=== PATIENT | male | born 1970 | race Hispanic/Latino ===

== ENCOUNTER 2020-08-03 08:24 | Emergency (ER) | payer SELFPAY ==
--- NOTE | 2020-08-03 09:50 | EDPHYS ---
Physician Documentation [facility] Name: Diego Stone Age: 49 yrs Sex: Male : 1970 Arrival Date: 08/03/2020 Time: 08:26 Bed 20 Private MD: ED Physician Federico Gross HPI: 08/03 09:51 This 49 yrs old Male presents to ER via Ambulatory with complaints of Hand kdr Pain. 09:51 The patient or guardian reports decreased range of motion, injury, pain. The complaints kdr affect the IP of right thumb and MCP of right thumb. Context: The problem was sustained outdoors, resulted from a fall. Onset: The symptoms/episode began/occurred suddenly, 1 month(s) ago. Modifying factors: The symptoms are alleviated by nothing, the symptoms are aggravated by movement. Associated signs and symptoms: The patient has no apparent associated signs or symptoms. Severity of symptoms: At their worst the symptoms were mild, moderate, just prior to arrival, in the emergency department the symptoms are unchanged. The patient has not experienced similar symptoms in the past. The patient has not recently seen a physician. Historical: - Allergies: 08:36 No Known Allergies; sv - Immunization history:: Adult Immunizations unknown. - Social history:: Smoking status: unknown. ROS: 09:51 Constitutional: Negative for fever, chills, and weight loss, Eyes: Negative for injury, kdr pain, redness, and discharge. 09:51 MS/extremity: Positive for injury or acute deformity, decreased range of motion, pain, swelling, tenderness, of the dorsal aspect of proximal phalanx of right thumb and Right first web space. Exam: 09:53 Constitutional: This is a well developed, well nourished patient who is awake, alert, kdr and in no acute distress. Head/Face: Normocephalic, atraumatic. 09:53 Musculoskeletal/extremity: Extremities: grossly normal except: decreased ROM, pain, swelling, tenderness. Vital Signs: 08:37 BP 150 / 81; Pulse 90; Resp 16; Temp 98.8; Pulse Ox 99% ; Height 5 ft. 5 in. (165.10 sv cm); 10:55 BP 145 / 80; Pulse 89; Resp 16; Pulse Ox 99% on R/A; zb MDM: 09:50 Patient medically screened. kdr 09:53 Data reviewed: vital signs, nurses notes, radiologic studies. Counseling: I had a kdr detailed discussion with the patient and/or guardian regarding: the historical points, exam findings, and any diagnostic results supporting the discharge/admit diagnosis, radiology results, the need for outpatient follow up. ED course: The injury is one month old and the patient does not appear to be any acute distress. 08/03 08:49 Order name: Hand Right 3 View XRAY 08/03 09:51 Order name: Thumb Spica Splint; Complete Time: 10:22 kdr Administered Medications: No medications were administered Disposition: 08/03/20 09:50 Discharged to Home. Impression: Fracture proximal right proximal first phalanx: Non-acute (1 month old). - Condition is Stable. - Discharge Instructions: Thumb Fracture. - Medication Reconciliation Form, Thank You Letter form. - Follow up: Manish Mitchell MD; When: 2 - 3 days; Reason: If symptoms return, Further diagnostic work-up, Recheck today's complaints, Continuance of care, Re-evaluation by your physician. Signatures: Dispatcher [employer] EDBindu Ochoa RN RN sv Federico Gross MD MD kdr Anjali Serrano RN RN zb Corrections: (The following items were deleted from the chart) 11:05 09:50 08/03/2020 09:50 Discharged to Home. Impression: Fracture proximal right proximal zb first phalanx: Non-acute (1 month old). Condition is Stable. Forms are Medication Reconciliation Form, Thank You Letter, Antibiotic Education, Prescription Opioid Use. Follow up: Manish Mitchell; When: 2 - 3 days; Reason: If symptoms return, Further diagnostic work-up, Recheck today's complaints, Continuance of care, Re-evaluation by your physician. kdr
--- NOTE | 2020-08-03 09:50 | ER ---
Nurse's Notes [facility] Name: Diego Stone Age: 49 yrs Sex: Male : 1970 Arrival Date: 08/03/2020 Time: 08:26 Bed 20 Private MD: Diagnosis: Fracture proximal right proximal first phalanx: Non-acute (1 month old) Presentation: 08/03 08:35 Chief complaint: Parent and/or Guardian states: right hand pain and swelling x 1 month. sv Pt reports falling on it a month ago. Coronavirus screen: Client denies travel out of the [place] in the last 14 days. At this time, the client does not indicate any symptoms associated with coronavirus-19. Ebola Screen: No symptoms or risks identified at this time. Risk Assessment: Do you want to hurt yourself or someone else? Patient reports no desire to harm self or others. Onset of symptoms was June 2020. 08:35 Method Of Arrival: Ambulatory 08:35 Acuity: PETE 4 sv 08:37 Initial Sepsis Screen: Does the patient meet any 2 criteria? No. Patient's initial sv sepsis screen is negative. Does the patient have a suspected source of infection? No. Patient's initial sepsis screen is negative. 08:49 Note Received VO for a hand xray per Dr Gross. sv Triage Assessment: 08:38 General: Appears in no apparent distress. uncomfortable, well developed, Behavior is sv calm, cooperative, appropriate for age. Pain: Complains of pain in right hand. Neuro: Level of Consciousness is awake, alert, obeys commands, Gait is steady. Respiratory: Respiratory effort is even, unlabored. Historical: - Allergies: 08:36 No Known Allergies; sv - Immunization history:: Adult Immunizations unknown. - Social history:: Smoking status: unknown. Screenin:42 Abuse screen: Denies threats or abuse. Denies injuries from another. Nutritional zb screening: No deficits noted. Tuberculosis screening: No symptoms or risk factors identified. Fall Risk None identified. Assessment: 09:39 General: Appears in no apparent distress. comfortable, Behavior is calm, cooperative, zb appropriate for age. Pain: Complains of pain in right hand Pain does not radiate. Pain currently is 0 out of 10 on a pain scale. at worst was 5 out of 10 on a pain scale. Pain began about a month ago Is continuous, Alleviated by rest, Aggravated by increased activity. Neuro: Level of Consciousness is awake, alert, obeys commands, Oriented to person, place, time, situation. Cardiovascular: Heart tones S1 S2 present Capillary refill < 3 seconds in bilateral fingers Patient's skin is warm and dry. Pulses are all present. Respiratory: Airway is patent Respiratory effort is even, unlabored, Respiratory pattern is regular, symmetrical. GI: Abdomen is round non-distended. : No signs and/or symptoms were reported regarding the genitourinary system. EENT: No signs and/or symptoms were reported regarding the EENT system. Derm: Skin is intact, is healthy with good turgor, Skin is dry, Skin is normal, Skin temperature is warm. Musculoskeletal: Circulation, motion, and sensation intact. Range of motion: intact in all extremities, Swelling present in right hand. 10:39 Reassessment: ECP at bedside explain POC to patient and family. zb 11:03 Reassessment: Patient appears in no apparent distress at this time. pt d/c gait even zb and steady. ambulated w/ family. Vital Signs: 08:37 BP 150 / 81; Pulse 90; Resp 16; Temp 98.8; Pulse Ox 99% ; Height 5 ft. 5 in. (165.10 sv cm); 10:55 BP 145 / 80; Pulse 89; Resp 16; Pulse Ox 99% on R/A; zb ED Course: 08:26 Patient arrived in ED. rg4 08:36 Triage completed. sv 08:37 Arm band placed on. sv 09:28 Federico Gross MD is Attending Physician. kdr 09:36 Anjali Serrano RN is Primary Nurse. zb 09:40 Hand Right 3 View XRAY In Process Unspecified. EDMS 09:42 Patient has correct armband on for positive identification. Side rails up X 1. Adult w/ zb patient. Door closed. Noise minimized. 09:47 Manish Mitchell MD is Referral Physician. kdr 11:04 No provider procedures requiring assistance completed. Patient did not have IV access zb during this emergency room visit. Administered Medications: No medications were administered Outcome: 09:50 Discharge ordered by . kdr 11:05 Discharged to home ambulatory, with family. zb 11:05 Condition: stable 11:05 Discharge instructions given to patient, family, Instructed on discharge instructions, follow up and referral plans. Demonstrated understanding of instructions, follow-up care, splint usage 11:05 Patient left the ED. zb Signatures: Dispatcher [employer] Bindu Rich, RN RN Federico Green MD MD kdr Garcia, Rubi rg4 Anjali Serrano RN RN zb Corrections: (The following items were deleted from the chart) 08:39 08:37 Pulse 90bpm; Resp 16bpm; Pulse Ox 99%; Temp 98.8F; Height 5 ft. 5 in.; sv sv
--- NOTE | 2020-08-03 10:19 | RAD REPORT ---
EXAM DESCRIPTION: RAD - Hand Right 3 View - 08/03/2020 9:40 am CLINICAL HISTORY: Pain;Swelling, fall 1 month earlier COMPARISON: No comparisons FINDINGS: An oblique fracture is present through the base of the first metacarpal involving the mireya cular surface. A 10 millimeter sized triangular fracture fragment is present at the ulna side base. T here is callus formation along the fracture plane which would be consistent with an injury 1 month ea rlier. No significant degenerative change at the trapezium - first metacarpal joint space. Elsewhere in the right hand no fracture or acute bone findings seen. No destructive process. No forei gn body or significant soft tissue abnormality. IMPRESSION: Subacute, incompletely healed fracture at the base of the first metacarpal as detailed.
[2020-08-03 16:22] VITALS: TEMP 98.8; O2SAT 99
[2020-08-03 16:23] VITALS: BP 145/80
== END 2020-08-03 11:05 | disposition home or self-care (01) ==
LOC: ER 08:24
PROC: 2W3GX1Z Immobilization of Right Thumb using Splint (ICD-10-PCS; principal; 2020-08-03)
DX: S62.511A Displaced fracture of proximal phalanx of right thumb, initial encounter for closed fracture (principal); W18.30XA Fall on same level, unspecified, initial encounter; Y93.9 Activity, unspecified; Y92.89 Other specified places as the place of occurrence of the external cause
CPT/HCPCS: 99283

== ENCOUNTER 2023-01-30 15:15 | Emergency (ER) | payer SELFPAY ==
--- NOTE | 2023-01-30 16:08 | ER ---
Nurse's Notes [facility] Name: Diego Stone Age: 52 yrs Sex: Male : 1970 Arrival Date: 01/30/2023 Time: 15:15 Bed IW4 Private MD: Diagnosis: Otitis media, unspecified, left ear;Other otitis externa, left ear Presentation: 01/30 16:03 Chief complaint: Patient states: L ear pain, denies fever. Coronavirus screen: Vaccine ph status: Patient reports being unvaccinated. Ebola Screen: No symptoms or risks identified at this time. Initial Sepsis Screen: Does the patient meet any 2 criteria? No. Patient's initial sepsis screen is negative. Does the patient have a suspected source of infection? No. Patient's initial sepsis screen is negative. Risk Assessment: Do you want to hurt yourself or someone else? Patient reports no desire to harm self or others. Onset of symptoms was January 30, 2023. 16:03 Method Of Arrival: Ambulatory ph 16:03 Acuity: PETE 4 ph Triage Assessment: 16:10 General: Appears in no apparent distress. comfortable, Behavior is calm, cooperative, ph appropriate for age. Pain: Complains of pain in left ear. EENT: Reports pain in left ear. Neuro: Level of Consciousness is awake, alert, obeys commands, Oriented to person, place, time, situation. Cardiovascular: Capillary refill < 3 seconds in bilateral fingers Patient's skin is warm and dry. Respiratory: Airway is patent Respiratory effort is even, unlabored, Respiratory pattern is regular, symmetrical. Historical: - Allergies: 16:04 No Known Allergies; ph - Home Meds: 16:05 Metformin Oral [Active]; ph - PMHx: 16:05 Diabetes mellitus; ph - Immunization history:: Adult Immunizations unknown. - Social history:: Smoking status: Patient denies any tobacco usage or history of. Screenin:10 Abuse screen: Denies threats or abuse. Denies injuries from another. Nutritional ph screening: No deficits noted. Tuberculosis screening: No symptoms or risk factors identified. Vital Signs: 16:22 BP 132 / 78; Pulse 89; Resp 18; Temp 97.9; Pulse Ox 99% on R/A; ph ED Course: 15:20 Patient arrived in ED. rg4 15:27 Jane Sanchez FNP-C [facility]. snw 15:27 Sharan Mcintosh MD is Attending Physician. snw 16:04 Triage completed. ph 16:06 Chastity Mg RN is Primary Nurse. ph 16:06 Arm band placed on. ph 16:10 Patient has correct armband on for positive identification. ph 16:15 No provider procedures requiring assistance completed. Patient did not have IV access ph during this emergency room visit. Administered Medications: 16:21 Drug: Yohnwqtl-Suzuthuyz-NU Otic Drops 4 drops Route: Otic; Site: left ear; ph 16:30 Follow up: Response: No adverse reaction ph 16:21 Drug: Amoxicillin-Clavulanate PO 875 mg Route: PO; ph 16:30 Follow up: Response: No adverse reaction ph 16:21 Drug: HYDROcodone-acetaminophen PO 5 mg-325 mg 1 tabs Route: PO; ph 16:30 Follow up: Response: No adverse reaction ph 16:21 Drug: Ibuprofen PO 400 mg Route: PO; ph 16:30 Follow up: Response: No adverse reaction ph Medication: 16:10 VIS not applicable for this client. ph Outcome: 16:07 Discharge ordered by . snw 16:22 Patient left the ED. ph 16:22 Discharged to home ambulatory, with family. ph 16:22 Condition: good 16:22 Discharge instructions given to patient, family, Instructed on discharge instructions, follow up and referral plans. medication usage, Demonstrated understanding of instructions, follow-up care, medications, Prescriptions given X 3. Signatures: Jane Sanchez FNP-C [employer]IN[employer] MANAGER-[employer] Chastity Mg RN RN ph Delilah Paulino rg4 Corrections: (The following items were deleted from the chart) 16:06 16:04 PMHx: None; ph ph
--- NOTE | 2023-01-30 16:08 | EDPHYS ---
Physician Documentation [facility] Name: Diego Stone Age: 52 yrs Sex: Male : 1970 Arrival Date: 01/30/2023 Time: 15:15 Bed IW4 Private MD: ED Physician Sharan Mcintosh HPI: 01/30 16:16 This 52 yrs old Male presents to ER via Ambulatory with complaints of Ear Pain.snw 16:16 The complaints affect the left ear. Severity of symptoms: At their worst the symptoms snw were moderate severe. The patient has not experienced similar symptoms in the past. It is unknown whether or not the patient has recently seen a physician. Historical: - Allergies: 16:04 No Known Allergies; ph - Home Meds: 16:05 Metformin Oral [Active]; ph - PMHx: 16:05 Diabetes mellitus; ph - Immunization history:: Adult Immunizations unknown. - Social history:: Smoking status: Patient denies any tobacco usage or history of. ROS: 16:15 Constitutional: Negative for fever, chills, and weight loss, Eyes: Negative for injury, snw pain, redness, and discharge, ENT: Negative for injury and discharge, + pain to left ear x 5 days Neck: Negative for injury, pain, and swelling, Cardiovascular: Negative for chest pain, palpitations, and edema, Respiratory: Negative for shortness of breath, cough, wheezing, and pleuritic chest pain, Abdomen/GI: Negative for abdominal pain, nausea, vomiting, diarrhea, and constipation, Back: Negative for injury and pain, : Negative for injury, bleeding, discharge, and swelling, MS/Extremity: Negative for injury and deformity, Skin: Negative for injury, rash, and discoloration, Neuro: Negative for headache, weakness, numbness, tingling, and seizure, Psych: Negative for depression, anxiety, suicide ideation, homicidal ideation, and hallucinations. Exam: 16:13 Constitutional: This is a well developed, well nourished patient who is awake, alert, snw and in no acute distress. Head/Face: Normocephalic, atraumatic. Eyes: Pupils equal round and reactive to light, extra-ocular motions intact. Lids and lashes normal. Conjunctiva and sclera are non-icteric and not injected. Cornea within normal limits. Periorbital areas with no swelling, redness, or edema. Neck: Trachea midline, no thyromegaly or masses palpated, and no cervical lymphadenopathy. Supple, full range of motion without nuchal rigidity, or vertebral point tenderness. No Meningismus. Chest/axilla: Normal chest wall appearance and motion. Nontender with no deformity. No lesions are appreciated. Cardiovascular: Regular rate and rhythm with a normal S1 and S2. No gallops, murmurs, or rubs. Normal PMI, no JVD. No pulse deficits. Respiratory: Lungs have equal breath sounds bilaterally, clear to auscultation and percussion. No rales, rhonchi or wheezes noted. No increased work of breathing, no retractions or nasal flaring. Abdomen/GI: Soft, non-tender, with normal bowel sounds. No distension or tympany. No guarding or rebound. No evidence of tenderness throughout. Back: No spinal tenderness. No costovertebral tenderness. Full range of motion. Skin: Warm, dry with normal turgor. Normal color with no rashes, no lesions, and no evidence of cellulitis. MS/ Extremity: Pulses equal, no cyanosis. Neurovascular intact. Full, normal range of motion. Neuro: Awake and alert, GCS 15, oriented to person, place, time, and situation. Cranial nerves II-XII grossly intact. Motor strength 5/5 in all extremities. Sensory grossly intact. Cerebellar exam normal. Normal gait. Psych: Awake, alert, with orientation to person, place and time. Behavior, mood, and affect are within normal limits. 16:13 ENT: Ear canal(s): clear fluid in canal, tenderness to left ear with tragus pressure and tug test, Nose: Mouth: Posterior pharynx: erythema, that is mild. Vital Signs: 16:22 BP 132 / 78; Pulse 89; Resp 18; Temp 97.9; Pulse Ox 99% on R/A; ph MDM: 16:06 Patient medically screened. snw 16:15 Differential diagnosis: otitis media, otitis externa, ruptured TM, acute otalgia. Data snw reviewed: vital signs, nurses notes. I considered the following discharge prescriptions or medication management in the emergency department Medications were administered in the Emergency Department. See MAR. Counseling: I had a detailed discussion with the patient and/or guardian regarding: the historical points, exam findings, and any diagnostic results supporting the discharge/admit diagnosis, the need for outpatient follow up, for definitive care, to return to the emergency department if symptoms worsen or persist or if there are any questions or concerns that arise at home. Special discussion: Based on the history and exam findings, there is no indication for further emergent testing or inpatient evaluation. I discussed with the patient/guardian the need to see the ENT specialist for further evaluation of the symptoms. I discussed with the patient/guardian the need to see the primary care provider for further evaluation of the symptoms. Administered Medications: 16:21 Drug: Skvlyuvc-Ptrkktkiu-GR Otic Drops 4 drops Route: Otic; Site: left ear; ph 16:30 Follow up: Response: No adverse reaction ph 16:21 Drug: Amoxicillin-Clavulanate PO 875 mg Route: PO; ph 16:30 Follow up: Response: No adverse reaction ph 16:21 Drug: HYDROcodone-acetaminophen PO 5 mg-325 mg 1 tabs Route: PO; ph 16:30 Follow up: Response: No adverse reaction ph 16:21 Drug: Ibuprofen PO 400 mg Route: PO; ph 16:30 Follow up: Response: No adverse reaction ph Disposition: 21:23 Co-signature as Attending Physician, Sharan Mcintosh MD I reviewed the patient's care rt provided by the Advanced Practice Provider and agree with the diagnosis and treatment plan. Disposition Summary: 01/30/23 16:07 Discharge Ordered Location: Home snw Condition: Stable snw Diagnosis - Otitis media, unspecified, left ear snw - Other otitis externa, left ear snw Followup: snw - With: Emergency Department - When: As needed - Reason: Worsening of condition Followup: snw - With: Private Physician - When: 2 - 3 days - Reason: Recheck today's complaints, Continuance of care, Re-evaluation by your physician Discharge Instructions: - Otitis Media, Adult snw - Otitis Externa snw - Discharge Summary Sheet ss Forms: - Medication Reconciliation Form snw - Thank You Letter snw - Antibiotic Education snw - Prescription Opioid Use snw - Work release form ss Prescriptions: - Polytrim 10,000 unit- 1 mg/mL Ophthalmic drops - instill 3 drop by OTIC route every 6 hours for 7 days to Left ear canal, do not snw exceed 6 doses in a 24 hr period; 1 unit; Refills: 0, Product Selection Permitted - Augmentin 500-125 mg Oral Tablet - take 1 tablet by ORAL route every 8 hours for 10 days; 30 tablet; Refills: 0, snw Product Selection Permitted - Tramadol 50 mg Oral Tablet - take 1 tablet by ORAL route every 8 hours as needed; 12 tablet; Refills: 0, snw Product Selection Permitted Signatures: Jane Sanchez, VERITO CLAIM SPECIALIST-Chastity Márquez RN RN ph Sharan Mcintosh MD MD rt Corrections: (The following items were deleted from the chart) 16:06 16:04 PMHx: None; ph ph
[2023-01-30] MEDS ORDERED: NEOMY/POLY/HC 1% OTIC DROPS ONE (16:19)
[2023-01-30] MEDS ORDERED: AMOX/K CLAV 875 MG TAB ONE (16:19)
[2023-01-30] MEDS ORDERED: IBUPROFEN 400 MG TAB ONE (16:20)
[2023-01-30] MEDS ORDERED: HYDROCODONE/APAP 5/325 MG TAB ONE (16:20)
--- OUTSIDE RECORDS SUMMARY | 2023-01-30 16:20 | XMS REPORT | Continuity of Care Document ---
:1970 Author Organization [facility] t Address [address] [place] [address] [place] [id number] Care Team Providers Name Role Phone PCP, PATIENT DOES NOT HAVE A Primary Care Physician Unavailnicanor MOISEONG, SON Attending Clinician Unavailable ANDREIA CHIRAG Attending Clinician [phone] CAPRI PARRA Attending Clinician Unavailable Capri Parra MD Attending Clinician [phone] BOSWELL, SON Attending Clinician Unavailable Champion_P Attending Clinician Unavailable Zohreh Pritchett NP Attending Clinician Latha Wang MD Attending Clinician LATHA WANG Attending Clinician Unavailable ALEXANDRIA BECKMAN Attending Clinician [phone] CARMEN YIP Attending Clinician [phone] NENA MAZARIEGOS Attending Clinician [phone] LUIS F CHANG Attending Clinician [phone] CAPRI PARRA Admitting Clinician Unavailable ANDREIA, CHIRAG Admitting Clinician Unavailable Champion_P Admitting Clinician Unavailable Payers Payer Name Policy Type Policy Number Effective Date Expiration Date S jcarlos MEDICAID PAUL PENDING 2022 PENDING 00:00:00 Problems Condition Condition Condition Status Onset Resolution Last Treating Co mments Source Name Details Category Date Date Treatment Clinician Date No known No known Disease Unive rs active active ity of problems problems [facility] Allergies, Adverse Reactions, Alerts Allergy Allergy Status Severity Reaction(s) Onset Inactive Treating Comm ents Source Name Type Date Date Clinician NO KNOWN Drug Active Univers ALLERGIE Class ity of [facility] Social History Social Habit Start Date Stop Date Quantity Comments Source History of tobacco 2019-07-14 Occ[facility]ional [facility] use 00:00:00 cigarette smoker Health-related 2019-05-20 [facility] th Behavior 00:00:00 Nutritional 2019-05-14 [facility] observable 00:00:00 Tobacco use and 2019-05-14 : No Details [facility] exposure 00:00:00 Available Quantity Details - : No Details Available [facility] to 2022-10-11 2022-10-21 Not sure [facility] SARS-CoV-2 (event) 00:00:00 18:21:00 [facility] Smoking Status Start Date Stop Date Source Tobacco smoking consumption [facility] Light tobacco smoker 2019-07-14 00:00:00 [facility] Current some day smoker 2019-07-14 00:00:00 [facility] Medications Ordered Filled Start Stop Current Ordering Indication Dosage Frequency Signature Comments Components Source Medication Medication Date Date Medication? Clinician (SIG) Name Name glimepiride 2022- No take 1 to [facility] 2 mg tablet 12-13- tablet by replace ealth 00:00: 00:00 oral route 4mg 00 :00 every day dosing. in the morning with food for diabetes glimepiride 2022- No take 1 to [facility] 2 mg tablet 12-13- tablet by replace ealth 00:00: 00:00 oral route 4mg 00 :00 every day dosing. in the morning with food for diabetes glimepiride 2022- No take 1 to [facility] 2 mg tablet 12-13- tablet by replace ealth 00:00: 00:00 oral route 4mg 00 :00 every day dosing. in the morning with food for diabetes glimepiride 2022-2022- No take 1 to [facility] 2 mg tablet 12-13- tablet by replace ealt 00:00: 00:00 oral route 4mg 00 :00 every day dosing. in the morning with food for diabetes glimepiride 2022-0 2022- No take 1 to [facility] 2 mg tablet 12-13- tablet by replace ealt 00:00: 00:00 oral route 4mg 00 :00 every day dosing. in the morning with food for diabetes glimepiride 2022- No take 1 12/10/22 [facility] 4 mg tablet 5- [facility] oral route increase 00 in the approved morning per 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 2022-2022- No take 1 12/10/22 [facility] 4 mg tablet 12-10- tablet by does [facility] 00:00: 00:00 oral route increase 00 :00 in the approved morning per 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 2022-0 2022- No take 1 12/10/22 [facility] 4 mg tablet 12-10- tablet by does mark [facility] 00:00: 00:00 oral route increase 00 :00 in the approved morning per 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 2022-0 2022- No take 1 12/10/22 [facility] 4 mg tablet 12-10- tablet by does mark [facility] 00:00: 00:00 oral route increase 00 :00 in the approved morning per 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 2022-0 2022- No take 1 12/10/22 [facility] 4 mg tablet 12-10- tablet by does mark [facility] 00:00: 00:00 oral route increase 00 :00 in the approved morning per 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 2022-0 2022- No take 1 12/10/22 [facility] 4 mg tablet 12-10- tablet by does mark [facility] 00:00: 00:00 oral route increase 00 :00 in the approved morning per Before Loulouong-w food m/agricultural equipment operator atorvastati 2023-0 No 1{table Q1D take 1 A [facility] n 20 mg 4-28 t} tablet by ealth tablet 00:00: oral route 00 every day for cholestero l lisinopril 2023-0 No 1{table Q1D take 1 Ac [facility] 20 mg 4-28 t} tablet by ealth tablet 00:00: oral route 00 every day for blood pressure metformin 3-0 No 1{table Q12H take 1 Acc [facility] 500 mg 4-28 t} tablet by ealth tablet 00:00: oral route 00 2 times every day with morning and evening meals atorvastati 3-0 No 1{table Q1D take 1 A [facility]cess[facility] n 20 mg 4-28 t} tablet by ealth tablet 00:00: oral route 00 every day for cholestero l lisinopril 3-0 No 1{table Q1D take 1 Ac [facility] 20 mg 4-28 t} tablet by ealth tablet 00:00: oral route 00 every day for blood pressure metformin 3-0 No 1{table Q12H take 1 Acc [facility] 500 mg 4-28 t} tablet by ealth tablet 00:00: oral route 00 2 times every day with morning and evening meals atorvastati 2023-0 No 1{table Q1D take 1 A ccess[facility] n 20 mg 4-28 t} tablet by ealth tablet 00:00: oral route 00 every day for cholestero l lisinopril 3-0 No 1{table Q1D take 1 Ac [facility] 20 mg 4-28 t} tablet by ealth tablet 00:00: oral route 00 every day for blood pressure metformin 3-0 No 1{table Q12H take 1 Acc [facility] 500 mg 4-28 t} tablet by ealth tablet 00:00: oral route 00 2 times every day with morning and evening meals atorvastati 2023-0 No 1{table Q1D take 1 A ccess[facility] n 20 mg 4-28 t} tablet by ealth tablet 00:00: oral route 00 every day for cholestero l lisinopril 3-0 No 1{table Q1D take 1 Ac [facility] 20 mg 4-28 t} tablet by ealth tablet 00:00: oral route 00 every day for blood pressure metformin 3-0 No 1{table Q12H take 1 Acc [facility] 500 mg 4-28 t} tablet by ealth tablet 00:00: oral route 00 2 times every day with morning and evening meals atorvastati 3-0 No 1{table Q1D take 1 A ccess[facility] n 20 mg 4-28 t} tablet by ealth tablet 00:00: oral route 00 every day for cholestero l lisinopril 3-0 No 1{table Q1D take 1 Ac [facility] 20 mg 4-28 t} tablet by ealth tablet 00:00: oral route 00 every day for blood pressure metformin 2022-0 No 1{table Q12H take 1 Acc [facility] 500 mg 4-28 t} tablet by ealth tablet 00:00: oral route 00 2 times every day with morning and evening meals atorvastati 2022-0 No 1{table Q1D take 1 A ccess[facility] n 20 mg 4-28 t} tablet by ealth tablet 00:00: oral route 00 every day for cholestero l lisinopril 2022-0 No 1{table Q1D take 1 Ac [facility] 20 mg 4-28 t} tablet by ealth tablet 00:00: oral route 00 every day for blood pressure metformin 3-0 No 1{table Q12H take 1 Acc [facility] 500 mg 4-28 t} tablet by ealth tablet 00:00: oral route 00 2 times every day with morning and evening meals glimepiride 2022-0 3- No take 1 08/24/22 [facility] 2 mg tablet 12-07 05- tablet by dose ea lth 00:00: 00:00 oral route increase 00 :00 every day approved in the per morning DrDuong-w with food m/agricultural equipment operator for diabetes glimepiride 2022-0 2022- No take 1 08/24/22 [facility] 2 mg tablet 12-07 05-01 tablet by dose ea lth 00:00: 00:00 oral route increase 00 :00 every day approved in the per morning DrDuong-w with food m/agricultural equipment operator for diabetes glimepiride 2022-0 2022- No take 1 08/24/22 [facility] 2 mg tablet 12-07 tablet by dose ea [facility] 00:00: 00:00 oral route increase 00 :00 every day approved in the per morning [place]- with food m/agricultural equipment operator for diabetes glimepiride 2022-0 2022- No take 1 08/24/22 [facility] 2 mg tablet 12-07 tablet by dose ea [facility] 00:00: 00:00 oral route increase 00 :00 every day [facility] m/agricultural equipment operator for diabetes glimepiride 2022-2022- No take 1 08/24/22 [facility] 2 mg tablet 12-07 tablet by dose ea [facility] 00:00: 00:00 oral route increase 00 :00 every day approved in the per morning [place]- with food m/agricultural equipment operator for diabetes glimepiride 2022-2022- No take 1 08/24/22 [facility] 2 mg tablet 12-07 tablet by dose [facility] 00:00: 00:00 oral route increase 00 :00 every day [facility] the [facility] with food m/agricultural equipment operator for diabetes ketorolac 2022-2022- No 15mg 15 mg, Unive rs (TORADOL) 10-22 Intramuscu ity of injection 02:00: 13:59 lar, ONCE, [place] 15 mg 00 :00 1 dose, On [facility] 10/21/22 at 2100, Routine glimepiride No take 08/24/22 [facility] 2 mg tablet 08-24 tablet by dose [facility] 00:00: oral route increase 00 every day approved [facility] the [facility] with food m/agricultural equipment operator for diabetes glimepiride 2022-2022- No take 1 08/24/22 [facility] 2 mg tablet 08-24 tablet by dose ea [facility] 00:00: 00:00 oral route increase 00 :00 every day approved [facility] with food m/agricultural equipment operator for diabetes glimepiride 2022-2022- No take 1 08/24/22 [facility] 2 mg tablet 08-24 tablet by dose ea lth 00:00: 00:00 oral route increase 00 :00 every day approved in the per morning DrDuong-w with food m/agricultural equipment operator for diabetes glimepiride 2022-0 2022- No take 1 08/24/22 [facility] 2 mg tablet 08-24 tablet by dose ea lth 00:00: 00:00 oral route increase 00 :00 every day approved in the per morning DrDuong-w with food m/agricultural equipment operator for diabetes glimepiride 2022-0 2022- No take 1 08/24/22 [facility] 2 mg tablet 08-24 tablet by dose ea lt 00:00: 00:00 oral route increase 00 :00 every day approved in the per morning DrDuong-w with food m/agricultural equipment operator for diabetes glimepiride 2022-0 2022- No take 1 08/24/22 [facility] 2 mg tablet 08-24 tablet by dose ea lt 00:00: 00:00 oral route increase 00 :00 every day approved in the per morning DrDuong-w with food m/agricultural equipment operator for diabetes glimepiride 2022-0 2022- No take 1 08/24/22 [facility] 2 mg tablet 08-24 tablet by dose ea lt 00:00: 00:00 oral route increase 00 :00 every day approved in the per morning DrDuong-w with food m/agricultural equipment operator for diabetes atorvastati 2022-0 No 1{table Q1D take 1 A ccess[facility] n 20 mg 1-11 t} tablet by ealth tablet 00:00: oral route 00 every day for cholestero l lisinopril 2022-0 No 1{table Q1D take 1 Ac [facility] 20 mg 1-11 t} tablet by ealth tablet 00:00: oral route 00 every day for blood pressure metformin 2022-0 No 1{table Q12H take 1 Acc [facility] 500 mg 1-11 t} tablet by ealth tablet 00:00: oral route 00 2 times every day with morning and evening meals Viagra 100 2022-0 No 1{table QD take 1 Please [facility] mg tablet 1-11 t} tablet by discard ea lth 00:00: oral route any 00 every day remaining as needed refills approximat from [facility] 1 hour previous before scripts sexual activity as needed Viagra 100 0 No 1{table QD take 1 Please [facility] mg tablet 1-11 t} tablet by discard ea lth 00:00: oral route any 00 every day remaining as needed refills approximat from [facility] 1 hour previous before scripts sexual activity as needed Viagra 100 2022-0 No 1{table QD take 1 Please [facility] mg tablet 1-11 t} tablet by discard ea lth 00:00: oral route any 00 every day remaining as needed refills approximat from [facility] 1 hour previous before scripts sexual activity as needed Viagra 100 0 No 1{table QD take 1 Please [facility] mg tablet 1-11 t} tablet by discard ea lth 00:00: oral route any 00 every day remaining as needed refills approximat from [facility] 1 hour previous before scripts sexual activity as needed Viagra 100 0 No 1{table QD take 1 Please [facility] mg tablet 1-11 t} tablet by discard ea lth 00:00: oral route any 00 every day remaining as needed refills approximat from [facility] 1 hour previous before scripts sexual activity as needed Viagra 100 0 No 1{table QD take 1 Please [facility] mg tablet 1-11 t} tablet by discard ea lth 00:00: oral route any 00 every day remaining as needed refills approximat from [facility] 1 hour previous before scripts sexual activity as needed Viagra 100 0 No 1{table QD take 1 Please [facility] mg tablet 1-11 t} tablet by discard ea lth 00:00: oral route any 00 every day remaining as needed refills approximat from [facility] 1 hour previous before scripts sexual activity as needed atorvastati 2022- No 1{table Q1D take 1 [facility] n 20 mg -28 t} tablet by ealth tablet 00:00: 00:00 oral route 00 :00 every day for cholestero l lisinopril 2022- No 1{table Q1D take 1 A ccessH 20 mg -06 15-28 t} tablet by ealth tablet 00:00: 00:00 oral route 00 :00 every day for blood pressure metformin 2022- No 1{table Q12H take 1 Ac cess[facility] 500 mg 08-22 t} tablet by ealth tablet 00:00: 00:00 oral route 00 :00 2 times every day with morning and evening meals atorvastati 2023-0 2023- No 1{table Q1D take 1 [facility] n 20 mg 08-22 t} tablet by ealth tablet 00:00: 00:00 oral route 00 :00 every day for cholestero l lisinopril 2023-0 2023- No 1{table Q1D take 1 A ccessH 20 mg 08-22 t} tablet by ealth tablet 00:00: 00:00 oral route 00 :00 every day for blood pressure metformin 2023-0 2023- No 1{table Q12H take 1 Ac [facility] 500 mg 08-22 t} tablet by ealth tablet 00:00: 00:00 oral route 00 :00 2 times every day with morning and evening meals atorvastati 2023-0 2023- No 1{table Q1D take 1 [facility] n 20 mg 08-22 t} tablet by ealth tablet 00:00: 00:00 oral route 00 :00 every day for cholestero l lisinopril 2023-0 2023- No 1{table Q1D take 1 A ccess[facility] 20 mg 08-22 t} tablet by ealth tablet 00:00: 00:00 oral route 00 :00 every day for blood pressure metformin 2023-0 2023- No 1{table Q12H take 1 Ac [facility] 500 mg 08-22 t} tablet by ealth tablet 00:00: 00:00 oral route 00 :00 2 times every day with morning and evening meals atorvastati 2023-0 2023- No 1{table Q1D take 1 [facility] n 20 mg 08-22 t} tablet by ealth tablet 00:00: 00:00 oral route 00 :00 every day for cholestero l lisinopril 2023-0 2023- No 1{table Q1D take 1 A [facility] 20 mg 08-22 t} tablet by ealth tablet 00:00: 00:00 oral route 00 :00 every day for blood pressure metformin 2023-0 2023- No 1{table Q12H take 1 Ac [facility] 500 mg 08-22 t} tablet by ealth tablet 00:00: 00:00 oral route 00 :00 2 times every day with morning and evening meals atorvastati 2022-0 2023- No 1{table Q1D take 1 [facility] n 20 mg 08-22 t} tablet by ealth tablet 00:00: 00:00 oral route 00 :00 every day for cholestero l lisinopril 2022-0 2023- No 1{table Q1D take 1 A ccess[facility] 20 mg 08-22 t} tablet by ealth tablet 00:00: 00:00 oral route 00 :00 every day for blood pressure metformin 3-0 2023- No 1{table Q12H take 1 Ac [facility] 500 mg 08-22 t} tablet by ealth tablet 00:00: 00:00 oral route 00 :00 2 times every day with morning and evening meals atorvastati 2022-0 2023- No 1{table Q1D take 1 [facility] n 20 mg 08-22 t} tablet by ealth tablet 00:00: 00:00 oral route 00 :00 every day for cholestero l lisinopril 2022-0 2023- No 1{table Q1D take 1 A ccess[facility] 20 mg 08-22 t} tablet by ealth tablet 00:00: 00:00 oral route 00 :00 every day for blood pressure metformin 3-0 2023- No 1{table Q12H take 1 Ac [facility] 500 mg 08-22 t} tablet by ealth tablet 00:00: 00:00 oral route 00 :00 2 times every day with morning and evening meals glimepiride 2022-0 2023- No take 1 [facility] 1 mg tablet 08-22 tablet by ea lt 00:00: 00:00 oral route 00 :00 every day in the morning with food for diabetes glimepiride 2023-0 2023- No take 1 [facility] 1 mg tablet 08-22 tablet by ea lt 00:00: 00:00 oral route 00 :00 every day in the morning with food for diabetes glimepiride 2023-0 2023- No take 1 [facility] 1 mg tablet 08-22 tablet by [facility] 00:00: 00:00 oral route 00 :00 every day in the morning with food for diabetes glimepiride 2022- No take 1 [facility] 1 mg tablet 08-22 tablet by [facility] 00:00: 00:00 oral route 00 :00 every day in the morning with food for diabetes glimepiride 2022-2022- No take 1 [facility] 1 mg tablet 08-22 tablet by [facility] 00:00: 00:00 oral route 00 :00 every day in the morning with food for diabetes glimepiride 2022-2022- No take 1 [facility] 1 mg tablet 08-22 tablet by [facility] 00:00: 00:00 oral route 00 :00 every day in the morning with food for diabetes glimepiride 2022-2022- No take 1 [facility] 1 mg tablet 08-22 tablet by [facility] 00:00: 00:00 oral route 00 :00 every day in the morning with food for diabetes Viagra 100 2022- No 1{table QD take 1 Please [facility] mg tablet 08-22 t} tablet by discard e alth 00:00: 00:00 oral route any 00 :00 every day remaining as needed refills approximat from [place] 1 hour previous before scripts sexual activity as needed Viagra 100 2022- No 1{table QD take 1 Please [facility] mg tablet 08-22 t} tablet by discard e alth 00:00: 00:00 oral route any 00 :00 every day remaining as needed refills approximat from [place] 1 hour previous before scripts sexual activity as needed Viagra 100 2022- No 1{table QD take 1 Please [facility] mg tablet 08-22 t} tablet by discard e alth 00:00: 00:00 oral route any 00 :00 every day remaining as needed refills approximat from [place] 1 hour previous before scripts sexual activity as needed Viagra 100 2022- No 1{table QD take 1 Please [facility] mg tablet 08-22 t} tablet by discard e alth 00:00: 00:00 oral route any 00 :00 every day remaining as needed refills approximat from [place] 1 hour previous before scripts sexual activity as needed Viagra 100 2022- No 1{table QD take 1 Please [facility] mg tablet 08-22 t} tablet by discard e alth 00:00: 00:00 oral route any 00 :00 every day remaining as needed refills approximat from [place] 1 hour previous before scripts sexual activity as needed Viagra 0 2022- No 1{table QD take 1 Please [facility] mg tablet 08-22 t} tablet by discard e alth 00:00: 00:00 oral route any 00 :00 every day remaining as needed refills approximat from [place] 1 hour previous before scripts sexual activity as needed Viagra 2022- No 1{table QD take 1 Please [facility] mg tablet 08-22 t} tablet by discard e alth 00:00: 00:00 oral route any 00 :00 every day remaining as needed refills approximat from [place] 1 hour previous before scripts sexual activity as needed Viagra 2022-0 2022- No 1{table QD take 1 Please [facility] mg tablet 08-22 t} tablet by discard e alth 00:00: 00:00 oral route any 00 :00 every day remaining as needed refills approximat from [place] 1 hour previous before scripts sexual activity as needed Viagra 2022- No 1{table QD take 1 Please [facility] mg tablet 08-22 t} tablet by discard e alth 00:00: 00:00 oral route any 00 :00 every day remaining as needed refills approximat from [place] 1 hour previous before scripts sexual activity as needed Viagra 2022- No 1{table QD take 1 Please [facility] mg tablet 08-22 t} tablet by discard e alth 00:00: 00:00 oral route any 00 :00 every day remaining as needed refills approximat from [place] 1 hour previous before scripts sexual activity as needed Viagra 100 2022- No 1{table QD take 1 Please [facility] mg tablet 08-22 t} tablet by discard e alth 00:00: 00:00 oral route any 00 :00 every day remaining as needed refills approximat from [place] 1 hour previous before scripts sexual activity as needed Viagra 2022- No 1{table QD take 1 Please [facility] mg tablet 08-22 t} tablet by discard e alth 00:00: 00:00 oral route any 00 :00 every day remaining as needed refills approximat from [place] 1 hour previous before scripts sexual activity as needed Viagra 2022- No 1{table QD take 1 Please [facility] mg tablet 08-22 t} tablet by discard e alth 00:00: 00:00 oral route any 00 :00 every day remaining as needed refills approximat from [place] 1 hour previous before scripts sexual activity as needed Viagra 2022- No 1{table QD take 1 Please [facility] mg tablet 08-22 t} tablet by discard e alth 00:00: 00:00 oral route any 00 :00 every day remaining as needed refills approximat from [place] 1 hour previous before scripts sexual activity as needed atorvastati 2021-08 No 1{table Q1D take 1 A ccess[facility] n 20 mg 0-11 t} tablet by ealth tablet 00:00: oral route 00 every day for cholestero l glimepiride 2021-08 No take 1 [facility] 1 mg tablet 0-11 tablet by eal th 00:00: oral route 00 every day in the morning with food for diabetes lisinopril 2021-08 No 1{table Q1D take 1 Ac [facility] 20 mg 0-11 t} tablet by ealth tablet 00:00: oral route 00 every day for blood pressure metformin 2021-08 No 1{table Q12H take 1 [facility] 500 mg 0-11 t} tablet by ealth tablet 00:00: oral route 00 2 times every day with morning and evening meals Viagra 100 2021-08 No 1{table QD take 1 new Ac cess[facility] mg tablet 0-11 t} tablet by increased ealth 00:00: oral route dosing 00 every day as needed approximat [place] 1 hour before sexual activity as needed atorvastati 2021-08 No 1{table Q1D take 1 A ccess[facility] n 20 mg 0-11 t} tablet by ealth tablet 00:00: oral route 00 every day for cholestero l glimepiride 2021-08 No take 1 [facility] 1 mg tablet 0-11 tablet by eal th 00:00: oral route 00 every day in the morning with food for diabetes lisinopril 2021-08 No 1{table Q1D take 1 Ac [facility] 20 mg 0-11 t} tablet by ealth tablet 00:00: oral route 00 every day for blood pressure metformin 2021-08 No 1{table Q12H take 1 Acc [facility] 500 mg 0-11 t} tablet by ealth tablet 00:00: oral route 00 2 times every day with morning and evening meals Viagra 100 2021-08 No 1{table QD take 1 new Ac cess[facility] mg tablet 0-11 t} tablet by increased ealth 00:00: oral route dosing 00 every day as needed approximat [place] 1 hour before sexual activity as needed atorvastati 2021-08- No 1{table Q1D take 1 [facility] n 20 mg 0-11 - t} tablet by ealth tablet 00:00: 00:00 oral route 00 :00 every day for cholestero l glimepiride 2021-08- No take 1 [facility] 1 mg tablet 0-11 tablet by ea lth 00:00: 00:00 oral route 00 :00 every day in the morning with food for diabetes lisinopril 2021-08- No 1{table Q1D take 1 A ccess[facility] 20 mg 0-11 -11 t} tablet by ealth tablet 00:00: 00:00 oral route 00 :00 every day for blood pressure metformin 2021-08- No 1{table Q12H take 1 Ac cess[facility] 500 mg 0-11 -11 t} tablet by ealth tablet 00:00: 00:00 oral route 00 :00 2 times every day with morning and evening meals Viagra 100 2021-08- No 1{table QD take 1 new A ccess[facility] mg tablet 0-11 -11 t} tablet by increased ealth 00:00: 00:00 oral route dosing 00 :00 every day as needed approximat [place] 1 hour before sexual activity as needed atorvastati 2021-08- No 1{table Q1D take 1 [facility] n 20 mg 08-22 t} tablet by ealth tablet 00:00: 00:00 oral route 00 :00 every day for cholestero l glimepiride 2021-08- No take 1 [facility] 1 mg tablet 08-22 tablet by ea lth 00:00: 00:00 oral route 00 :00 every day in the morning with food for diabetes lisinopril 2021-08- No 1{table Q1D take 1 A ccess[facility] 20 mg 08-22 t} tablet by ealth tablet 00:00: 00:00 oral route 00 :00 every day for blood pressure metformin 2021-08- No 1{table Q12H take 1 Ac cess[facility] 500 mg 08-22 t} tablet by ealth tablet 00:00: 00:00 oral route 00 :00 2 times every day with morning and evening meals Viagra 100 2021-08- No 1{table QD take 1 new A ccess[facility] mg tablet 08-22 t} tablet by increased ealth 00:00: 00:00 oral route dosing 00 :00 every day as needed approximat [place] 1 hour before sexual activity as needed atorvastati 2021-08- No 1{table Q1D take 1 [facility] 20 mg 08-22 t} tablet by [facility] tablet 00:00: 00:00 oral route 00 :00 every day for cholestero l glimepiride 2021-08- No take 1 [facility] 1 mg tablet 08-22 tablet by ea l[facility] 00:00: 00:00 oral route 00 :00 every day in the morning with food for diabetes lisinopril 2021-08- No 1{table Q1D take 1 [facility] 20 mg 08-22 t} tablet by [facility] tablet 00:00: 00:00 oral route 00 :00 every day for blood pressure metformin 2021-08- No 1{table Q12H take 1 [facility] 500 mg 08-22 t} tablet by [facility] tablet 00:00: 00:00 oral route 00 :00 2 times every day with morning and evening meals Viagra 100 2021-08- No 1{table QD take 1 new [facility] mg tablet 08-22 t} tablet by increased [facility] 00:00: 00:00 oral route dosing 00 :00 every day as needed approximat flor 1 hour before sexual activity as needed atorvastati 2021-08- No 1{table Q1D take 1 [facility] 20 mg 08-22 t} tablet by [facility] tablet 00:00: 00:00 oral route 00 :00 every day for cholestero l glimepiride 2021-08- No take 1 [facility] 1 mg tablet 08-22 tablet by ea [facility] 00:00: 00:00 oral route 00 :00 every day in the morning with food for diabetes lisinopril 2021-08- No 1{table Q1D take 1 [facility] 20 mg 08-22 t} tablet by [facility] tablet 00:00: 00:00 oral route 00 :00 every day for blood pressure metformin 2021-08- No 1{table Q12H take 1 [facility] 500 mg 08-22 t} tablet by [facility] tablet 00:00: 00:00 oral route 00 :00 2 times every day with morning and evening meals Viagra 100 2021-08- No 1{table QD take 1 new [facility] mg tablet 08-22 t} tablet by increased [facility] 00:00: 00:00 oral route dosing 00 :00 every day as needed approximat flor 1 hour before sexual activity as needed atorvastati 2021-08- No 1{table Q1D take 1 [facility] 20 mg 08-22 t} tablet by [facility] tablet 00:00: 00:00 oral route 00 :00 every day for cholestero l glimepiride 2021-08- No take 1 [facility] 1 mg tablet 08-22 tablet by ea [facility] 00:00: 00:00 oral route 00 :00 every day in the morning with food for diabetes lisinopril 2021-08- No 1{table Q1D take 1 [facility] 20 mg 08-22 t} tablet by [facility] tablet 00:00: 00:00 oral route 00 :00 every day for blood pressure metformin 2021-08- No 1{table Q12H take 1 [facility] 500 mg 08-22 t} tablet by [facility] tablet 00:00: 00:00 oral route 00 :00 2 times every day with morning and evening meals Viagra 100 2021-08- No 1{table QD take 1 new [facility] mg tablet 08-22 t} tablet by increased [facility] 00:00: 00:00 oral route dosing 00 :00 every day as needed approximat flor 1 hour before sexual activity as needed atorvastati 2021-08- No 1{table Q1D take 1 [facility] 20 mg 08-22 t} tablet by [facility] tablet 00:00: 00:00 oral route 00 :00 every day for cholestero l glimepiride 2021-08- No take 1 [facility] 1 mg tablet 08-22 tablet by ea [facility] 00:00: 00:00 oral route 00 :00 every day in the morning with food for diabetes lisinopril 2021-08- No 1{table Q1D take 1 [facility] 20 mg 08-22 t} tablet by [facility] tablet 00:00: 00:00 oral route 00 :00 every day for blood pressure metformin 2021-08- No 1{table Q12H take 1 [facility] 500 mg 08-22 t} tablet by [facility] tablet 00:00: 00:00 oral route 00 :00 2 times every day with morning and evening meals Viagra 100 2021-08- No 1{table QD take 1 new [facility] mg tablet 08-22 t} tablet by increased [facility] 00:00: 00:00 oral route dosing 00 :00 every day as needed approximat flor 1 hour before sexual activity as needed atorvastati 2021-08- No 1{table Q1D take 1 [facility] 20 mg 08-22 t} tablet by [facility] tablet 00:00: 00:00 oral route 00 :00 every day for cholestero l glimepiride 2021-08- No take 1 [facility] 1 mg tablet 008-22 tablet by ea [facility] 00:00: 00:00 oral route 00 :00 every day in the morning with food for diabetes lisinopril 2021-08- No 1{table Q1D take 1 [facility] 20 mg 008-22 t} tablet by [facility] tablet 00:00: 00:00 oral route 00 :00 every day for blood pressure metformin 2021-08- No 1{table Q12H take 1 [facility] 500 mg 008-22 t} tablet by [facility] tablet 00:00: 00:00 oral route 00 :00 2 times every day with morning and evening meals Viagra 100 2021-08- No 1{table QD take 1 new [facility] mg tablet 08-22 t} tablet by increased [facility] 00:00: 00:00 oral route dosing 00 :00 every day as needed approximat flor 1 hour before sexual activity as needed Viagra 50 2021-08- No 1{table QD take 1 new [facility] mg tablet 005-22 t} tablet by increased [facility] 00:00: 00:00 oral route dosing 00 :00 every day as needed approximat flor 1 hour before sexual activity as needed Viagra 50 2021-08- No 1{table QD take 1 new [facility] mg tablet 005-22 t} tablet by increased [facility] 00:00: 00:00 oral route dosing 00 :00 every day as needed approximat flor 1 hour before sexual activity as needed Viagra 50 2021-08- No 1{table QD take 1 new [facility] mg tablet 005-22 t} tablet by increased [facility] 00:00: 00:00 oral route dosing 00 :00 every day as needed approximat flor 1 hour before sexual activity as needed Viagra 50 2021-08- No 1{table QD take 1 new [facility] mg tablet 0-06 21- t} tablet by increased [facility] 00:00: 00:00 oral route dosing 00 :00 every day as needed approximat flor 1 hour before sexual activity as needed Viagra 50 2021-08- No 1{table QD take 1 new [facility] mg tablet 0-11 10-11 t} tablet by increased [facility] 00:00: 00:00 oral route dosing 00 :00 every day as needed approximat flor 1 hour before sexual activity as needed Viagra 50 2021-08- No 1{table QD take 1 new [facility] mg tablet 0-11 10-11 t} tablet by increased [facility] 00:00: 00:00 oral route dosing 00 :00 every day as needed approximat flor 1 hour before sexual activity as needed Viagra 50 2021-08- No 1{table QD take 1 new [facility] mg tablet 0-11 10-11 t} tablet by increased [facility] 00:00: 00:00 oral route dosing 00 :00 every day as needed approximat flor 1 hour before sexual activity as needed Viagra 50 2021-08- No 1{table QD take 1 new [facility] mg tablet 0-11 10-11 t} tablet by increased [facility] 00:00: 00:00 oral route dosing 00 :00 every day as needed approximat flor 1 hour before sexual activity as needed Viagra 50 2021-08- No 1{table QD take 1 new [facility] mg tablet 0-11 10-11 t} tablet by increased [facility] 00:00: 00:00 oral route dosing 00 :00 every day as needed approximat flor 1 hour before sexual activity as needed Viagra 50 2021-08- No 1{table QD take 1 new [facility] mg tablet 0-11 10-11 t} tablet by increased [facility] 00:00: 00:00 oral route dosing 00 :00 every day as needed approximat flor 1 hour before sexual activity as needed Viagra 50 2021-08- No 1{table QD take 1 new [facility] mg tablet 0-11 10-11 t} tablet by increased [facility] 00:00: 00:00 oral route dosing 00 :00 every day as needed approximat flor 1 hour before sexual activity as needed Viagra 50 2021-08- No 1{table QD take 1 new [facility] mg tablet 0-11 10-11 t} tablet by increased [facility] 00:00: 00:00 oral route dosing 00 :00 every day as needed approximat flor 1 hour before sexual activity as needed Viagra 50 2021-08- No 1{table QD take 1 new [facility] mg tablet 0-11 10-11 t} tablet by increased [facility] 00:00: 00:00 oral route dosing 00 :00 every day as needed approximat flor 1 hour before sexual activity as needed Viagra 50 2021-08- No 1{table QD take 1 new [facility] mg tablet 0-11 10-11 t} tablet by increased [facility] 00:00: 00:00 oral route dosing 00 :00 every day as needed approximat flor 1 hour before sexual activity as needed Viagra 50 2021-08- No 1{table QD take 1 new [facility] mg tablet 0-11 10-11 t} tablet by increased [facility] 00:00: 00:00 oral route dosing 00 :00 every day as needed approximat flor 1 hour before sexual activity as needed Viagra 50 2021-08- No 1{table QD take 1 new [facility] mg tablet 0-11 10-11 t} tablet by increased [facility] 00:00: 00:00 oral route dosing 00 :00 every day as needed approximat flor 1 hour before sexual activity as needed Viagra 50 2021-08- No 1{table QD take 1 new [facility] mg tablet 0-11 10-11 t} tablet by [facility] 00:00: 00:00 oral route dosing 00 :00 every day as needed approximat flor 1 hour before sexual activity as needed Viagra 50 2021-08- No 1{table QD take 1 new [facility] mg tablet 0-11 10-11 t} tablet by increased [facility] 00:00: 00:00 oral route dosing 00 :00 every day as needed approximat flor 1 hour before sexual activity as needed aspirin 81 2021- No take 1 Please [facility] mg 7-06 18-11 tablet by discard [facility] tablet,[place]gang 10:54: 00:00 oral route any yed release 00 :00 every day remaining at bedtime refills for heart from previous scripts aspirin 81 2- No take 1 Please [facility] mg 7-06 18-11 tablet by discard [facility] tablet,[place] 10:54: 00:00 oral route any yed release 00 :00 every day remaining at bedtime refills for heart from previous scripts aspirin 81 2021- No take 1 Please [facility] mg 7-06 18-11 tablet by discard [facility] tablet,[place] 10:54: 00:00 oral route any yed release 00 :00 every day remaining at bedtime refills for heart from previous scripts aspirin 2021- No take 1 Please [facility] mg 7-06 18-11 tablet by discard [facility] tablet,[place] 10:54: 00:00 oral route any yed release 00 :00 every day remaining at bedtime refills for heart from previous scripts aspirin 81 2021- No take 1 Please [facility] mg -02-19 tablet by discard [facility] tablet,[place] 10:54: 00:00 oral route any yed release 00 :00 every day remaining at bedtime refills for heart from previous scripts aspirin 2021- No take 1 Please [facility] mg 02-19- tablet by discard [facility] tablet,[place] 10:54: 00:00 oral route any yed release 00 :00 every day remaining at bedtime refills for heart from previous scripts aspirin 2021- No take 1 Please [facility] mg 02-19- tablet by discard [facility] tablet,[place] 10:54: 00:00 oral route any yed release 00 :00 every day remaining at bedtime refills for heart from previous scripts aspirin 2021- No take 1 Please [facility] mg 7-06 18-11 tablet by discard [facility] tablet,[place] 10:54: 00:00 oral route any yed release 00 :00 every day remaining at bedtime refills for heart from previous scripts aspirin 81 2021-2021- No take 1 Please [facility] mg 7-06 18-11 tablet by discard [facility] tablet,[place] 10:54: 00:00 oral route any yed release 00 :00 every day remaining at bedtime refills for heart from previous scripts atorvastati No 1{table Q1D take 1 [facility] 20 mg 7-11 t} tablet by [facility] tablet 00:00: oral route 00 every day for cholestero l glimepiride No take 1 [facility] 1 mg tablet 7-11 tablet by eal th 00:00: oral route 00 every day in the morning with food for diabetes lisinopril No 1{table Q1D take 1 [facility] 20 mg 7-11 t} tablet by [facility] tablet 00:00: oral route 00 every day for blood pressure metformin No 1{table Q12H take 1 [facility] 500 mg 7-11 t} tablet by e[facility] tablet 00:00: oral route 00 2 times every day with morning and evening meals Viagra 50 No 1{table QD take 1 new [facility] mg tablet 7-11 t} tablet by increased [facility] 00:00: oral route dosing 00 every day as needed approximat flor 1 hour before sexual activity as needed atorvastati No 1{table Q1D take 1 [facility] 20 mg 7-11 t} tablet by [facility] tablet 00:00: oral route 00 every day for cholestero l glimepiride No take 1 [facility] 1 mg tablet 7-11 tablet by eal th 00:00: oral route 00 every day in the morning with food for diabetes lisinopril No 1{table Q1D take 1 [facility] 20 mg 7-11 t} tablet by [facility] tablet 00:00: oral route 00 every day for blood pressure metformin No 1{table Q12H take 1 [facility] 500 mg 7-11 t} tablet by ealth tablet 00:00: oral route 00 2 times every day with morning and evening meals Viagra 50 No 1{table QD take 1 new [facility] mg tablet 7-11 t} tablet by increased [facility] 00:00: oral route dosing 00 every day as needed approximat flor 1 hour before sexual activity as needed atorvastati 2021- No 1{table Q1D take 1 [facility] 20 mg 7-11 10-11 t} tablet by ealth tablet 00:00: 00:00 oral route 00 :00 every day for cholestero l glimepiride 2021-2021- No take 1 [facility] 1 mg tablet 7-11 10-11 tablet by ea [facility] 00:00: 00:00 oral route 00 :00 every day in the morning with food for diabetes lisinopril 2021- No 1{table Q1D take 1 [facility] 20 mg 7-11 10-11 t} tablet by [facility] tablet 00:00: 00:00 oral route 00 :00 every day for blood pressure metformin 2021-2021- No 1{table Q12H take 1 [facility] 500 mg 7-11 10-11 t} tablet by [facility] tablet 00:00: 00:00 oral route 00 :00 2 times every day with morning and evening meals Viagra 50 2021-2021- No 1{table QD take 1 new [facility] mg tablet 7-11 10-11 t} tablet by increased [facility] 00:00: 00:00 oral route dosing 00 :00 every day as needed approximat flor 1 hour before sexual activity as needed atorvastati 2021-2021- No 1{table Q1D take 1 [facility] 20 mg 7-11 10-11 t} tablet by ealth tablet 00:00: 00:00 oral route 00 :00 every day for cholestero l glimepiride 2021- No take 1 [facility] 1 mg tablet 7-11 10-11 tablet by ea [facility] 00:00: 00:00 oral route 00 :00 every day in the morning with food for diabetes lisinopril 2021- No 1{table Q1D take 1 [facility] 20 mg 7-11 10-11 t} tablet by [facility]alth tablet 00:00: 00:00 oral route 00 :00 every day for blood pressure metformin 2021-2021- No 1{table Q12H take 1 [facility] 500 mg 7-11 10-11 t} tablet by ealth tablet 00:00: 00:00 oral route 00 :00 2 times every day with morning and evening meals Viagra 50 2021- No 1{table QD take 1 new [facility] mg tablet 7-11 10-11 t} tablet by increased [facility] 00:00: 00:00 oral route dosing 00 :00 every day as needed approximat flor 1 hour before sexual activity as needed atorvastati 2021- No 1{table Q1D take 1 [facility] 20 mg 7-11 10-11 t} tablet by ealth tablet 00:00: 00:00 oral route 00 :00 every day for cholestero l glimepiride 2021- No take 1 [facility] 1 mg tablet 7-11 10-11 tablet by ea [facility] 00:00: 00:00 oral route 00 :00 every day in the morning with food for diabetes lisinopril 2021- No 1{table Q1D take 1 [facility] 20 mg 7-11 10-11 t} tablet by [facility] tablet 00:00: 00:00 oral route 00 :00 every day for blood pressure metformin 2021- No 1{table Q12H take 1 [facility] 500 mg 7-11 10-11 t} tablet by e[facility] tablet 00:00: 00:00 oral route 00 :00 2 times every day with morning and evening meals Viagra 50 2021- No 1{table QD take 1 new [facility] mg tablet 7-11 10-11 t} tablet by increased [facility] 00:00: 00:00 oral route dosing 00 :00 every day as needed approximat flor 1 hour before sexual activity as needed atorvastati 2021- No 1{table Q1D take 1 [facility] 20 mg 7-11 10-11 t} tablet by ealth tablet 00:00: 00:00 oral route 00 :00 every day for cholestero l glimepiride 2021- No take 1 [facility] 1 mg tablet 7-11 10-11 tablet by ea [facility] 00:00: 00:00 oral route 00 :00 every day in the morning with food for diabetes lisinopril 2021- No 1{table Q1D take 1 [facility] 20 mg 7-11 10-11 t} tablet by [facility]alth tablet 00:00: 00:00 oral route 00 :00 every day for blood pressure metformin 2021- No 1{table Q12H take 1 [facility] 500 mg 7-11 10-11 t} tablet by ealth tablet 00:00: 00:00 oral route 00 :00 2 times every day with morning and evening meals Viagra 50 2021- No 1{table QD take 1 new [facility] mg tablet 7-11 10-11 t} tablet by increased [facility] 00:00: 00:00 oral route dosing 00 :00 every day as needed approximat flor 1 hour before sexual activity as needed atorvastati 2021-2021- No 1{table Q1D take 1 [facility] 20 mg 7-11 10-11 t} tablet by ealth tablet 00:00: 00:00 oral route 00 :00 every day for cholestero l glimepiride 2021- No take 1 [facility] 1 mg tablet 7-11 10-11 tablet by ea [facility] 00:00: 00:00 oral route 00 :00 every day in the morning with food for diabetes lisinopril 2021-2021- No 1{table Q1D take 1 [facility] 20 mg 7-11 10-11 t} tablet by ealth tablet 00:00: 00:00 oral route 00 :00 every day for blood pressure metformin 2021-2021- No 1{table Q12H take 1 [facility] 500 mg 7-11 10-11 t} tablet by ealth tablet 00:00: 00:00 oral route 00 :00 2 times every day with morning and evening meals Viagra 50 2021- No 1{table QD take 1 new [facility] mg tablet 7-11 10-11 t} tablet by increased [facility] 00:00: 00:00 oral route dosing 00 :00 every day as needed approximat flor 1 hour before sexual activity as needed atorvastati 2021-2021- No 1{table Q1D take 1 [facility] 20 mg 7-11 10-11 t} tablet by ealth tablet 00:00: 00:00 oral route 00 :00 every day for cholestero l glimepiride 2021-2021- No take 1 [facility] 1 mg tablet 7-11 10-11 tablet by ea [facility] 00:00: 00:00 oral route 00 :00 every day in the morning with food for diabetes lisinopril 2021-0 2021- No 1{table Q1D take 1 [facility] 20 mg 7-11 10-11 t} tablet by [facility]alth tablet 00:00: 00:00 oral route 00 :00 every day for blood pressure metformin 2021-0 2021- No 1{table Q12H take 1 [facility] 500 mg 7-11 10-11 t} tablet by ealth tablet 00:00: 00:00 oral route 00 :00 2 times every day with morning and evening meals Viagra 50 2021-0 2021- No 1{table QD take 1 new [facility] mg tablet 7-11 10-11 t} tablet by increased [facility] 00:00: 00:00 oral route dosing 00 :00 every day as needed approximat flor 1 hour before sexual activity as needed atorvastati 2021-2021- No 1{table Q1D take 1 [facility] 20 mg 7-11 10-11 t} tablet by ealth tablet 00:00: 00:00 oral route 00 :00 every day for cholestero l glimepiride 2021-2021- No take 1 [facility] 1 mg tablet 7-11 10-11 tablet by ea [facility] 00:00: 00:00 oral route 00 :00 every day in the morning with food for diabetes lisinopril 2021-0 2021- No 1{table Q1D take 1 [facility] 20 mg 7-11 10-11 t} tablet by ealth tablet 00:00: 00:00 oral route 00 :00 every day for blood pressure metformin 2021-0 2021- No 1{table Q12H take 1 [facility] 500 mg 7-11 10-11 t} tablet by ealth tablet 00:00: 00:00 oral route 00 :00 2 times every day with morning and evening meals Viagra 50 2021-0 2021- No 1{table QD take 1 new [facility] mg tablet 7-11 10-11 t} tablet by increased [facility] 00:00: 00:00 oral route dosing 00 :00 every day as needed approximat flor 1 hour before sexual activity as needed atorvastati 2021-0 2021- No 1{table Q1D take 1 [facility] 20 mg 7-11 10-11 t} tablet by ealth tablet 00:00: 00:00 oral route 00 :00 every day for cholestero l glimepiride 2021-2021- No take 1 [facility] 1 mg tablet 7-11 10-11 tablet by ea l[facility] 00:00: 00:00 oral route 00 :00 every day in the morning with food for diabetes lisinopril 2021- No 1{table Q1D take 1 [facility] 20 mg 7-11 10-11 t} tablet by ealth tablet 00:00: 00:00 oral route 00 :00 every day for blood pressure metformin 2021-2021- No 1{table Q12H take 1 [facility] 500 mg 7-11 10-11 t} tablet by ealth tablet 00:00: 00:00 oral route 00 :00 2 times every day with morning and evening meals Viagra 50 2021-2021- No 1{table QD take 1 new [facility] mg tablet 7-11 10-11 t} tablet by increased [facility] 00:00: 00:00 oral route dosing 00 :00 every day as needed approximat flor 1 hour before sexual activity as needed atorvastati 2021-2021- No 1{table Q1D take 1 [facility] 20 mg 7-11 10-11 t} tablet by ealth tablet 00:00: 00:00 oral route 00 :00 every day for cholestero l glimepiride 2021-2021- No take 1 [facility] 1 mg tablet 7-11 10-11 tablet by ea l[facility] 00:00: 00:00 oral route 00 :00 every day in the morning with food for diabetes lisinopril 2021-2021- No 1{table Q1D take 1 [facility] 20 mg 7-11 10-11 t} tablet by ealth tablet 00:00: 00:00 oral route 00 :00 every day for blood pressure metformin 2021-2021- No 1{table Q12H take 1 [facility] 500 mg 7-11 10-11 t} tablet by ealth tablet 00:00: 00:00 oral route 00 :00 2 times every day with morning and evening meals Viagra 50 2021- No 1{table QD take 1 new [facility] mg tablet 02-19 t} tablet by increased [facility] 00:00: 00:00 oral route dosing 00 :00 every day as needed approximat flor 1 hour before sexual activity as needed Viagra 25 2021- No 1{table QD take 1 Please [facility] mg tablet 02-19 t} tablet by discard e alth 00:00: 00:00 oral route any 00 :00 every day remaining as needed refills approximat from flor 1 hour previous before scripts sexual activity as needed Viagra 2021- No 1{table QD take 1 Please [facility] mg tablet 02-19 t} tablet by discard e alth 00:00: 00:00 oral route any 00 :00 every day remaining as needed refills approximat from flor 1 hour previous before scripts sexual activity as needed Viagra 2021- No 1{table QD take 1 Please [facility] mg tablet 02-19 t} tablet by discard e alth 00:00: 00:00 oral route any 00 :00 every day remaining as needed refills approximat from flor 1 hour previous before scripts sexual activity as needed Viagra 2021- No 1{table QD take 1 Please [facility] mg tablet 02-19 t} tablet by discard e alth 00:00: 00:00 oral route any 00 :00 every day remaining as needed refills approximat from flor 1 hour previous before scripts sexual activity as needed Viagra 2021- No 1{table QD take 1 Please [facility] mg tablet 02-19 t} tablet by discard e alth 00:00: 00:00 oral route any 00 :00 every day remaining as needed refills approximat from flor 1 hour previous before scripts sexual activity as needed Viagra 2021- No 1{table QD take 1 Please [facility] mg tablet 02-19 t} tablet by discard e alth 00:00: 00:00 oral route any 00 :00 every day remaining as needed refills approximat from flor 1 hour previous before scripts sexual activity as needed Viagra 2021- No 1{table QD take 1 Please [facility] mg tablet 02-19 t} tablet by discard e alth 00:00: 00:00 oral route any 00 :00 every day remaining as needed refills approximat from flor 1 hour previous before scripts sexual activity as needed Viagra 2021- No 1{table QD take 1 Please [facility] mg tablet 02-19 t} tablet by discard e alth 00:00: 00:00 oral route any 00 :00 every day remaining as needed refills approximat from flor 1 hour previous before scripts sexual activity as needed Viagra 2021- No 1{table QD take 1 Please [facility] mg tablet 02-19 t} tablet by discard e alth 00:00: 00:00 oral route any 00 :00 every day remaining as needed refills approximat from flor 1 hour previous before scripts sexual activity as needed Viagra 2021- No 1{table QD take 1 Please [facility] mg tablet 02-19 t} tablet by discard e alth 00:00: 00:00 oral route any 00 :00 every day remaining as needed refills approximat from flor 1 hour previous before scripts sexual activity as needed Viagra 2021- No 1{table QD take 1 Please [facility] mg tablet 02-19 t} tablet by discard e alth 00:00: 00:00 oral route any 00 :00 every day remaining as needed refills approximat from flor 1 hour previous before scripts sexual activity as needed Viagra 2021- No 1{table QD take 1 Please [facility] mg tablet 02-19 t} tablet by discard e alth 00:00: 00:00 oral route any 00 :00 every day remaining as needed refills approximat from flor 1 hour previous before scripts sexual activity as needed Viagra 2021- No 1{table QD take 1 Please [facility] mg tablet 02-19 t} tablet by discard e alth 00:00: 00:00 oral route any 00 :00 every day remaining as needed refills approximat from flor 1 hour previous before scripts sexual activity as needed Viagra 2021- No 1{table QD take 1 Please [facility] mg tablet 02-19 t} tablet by discard e alth 00:00: 00:00 oral route any 00 :00 every day remaining as needed refills approximat from flor 1 hour previous before scripts sexual activity as needed Viagra 2021- No 1{table QD take 1 Please [facility] mg tablet 02-19 t} tablet by discard e alth 00:00: 00:00 oral route any 00 :00 every day remaining as needed refills approximat from flor 1 hour previous before scripts sexual activity as needed Viagra 2021- No 1{table QD take 1 Please [facility] mg tablet 02-19 t} tablet by discard e alth 00:00: 00:00 oral route any 00 :00 every day remaining as needed refills approximat from flor 1 hour previous before scripts sexual activity as needed Viagra 2021- No 1{table QD take 1 Please [facility] mg tablet 02-19 t} tablet by discard e alth 00:00: 00:00 oral route any 00 :00 every day remaining as needed refills approximat from flor 1 hour previous before scripts sexual activity as needed Viagra 2021- No 1{table QD take 1 Please [facility] mg tablet 02-19 t} tablet by discard e alth 00:00: 00:00 oral route any 00 :00 every day remaining as needed refills approximat from flor 1 hour previous before scripts sexual activity as needed Viagra 2021- No 1{table QD take 1 Please [facility] mg tablet 02-19 t} tablet by discard e alth 00:00: 00:00 oral route any 00 :00 every day remaining as needed refills approximat from flor 1 hour previous before scripts sexual activity as needed Viagra 2021- No 1{table QD take 1 Please [facility] mg tablet 02-19 t} tablet by discard e alth 00:00: 00:00 oral route any 00 :00 every day remaining as needed refills approximat from [facility] 1 hour previous before scripts sexual activity as needed Viagra 2021- No 1{table QD take 1 [facility] mg tablet 02-19 07-11 t} tablet by discard [facility] 00:00: 00:00 oral route any 00 :00 every day remaining as needed refills approximat from [facility] 1 hour previous before scripts sexual activity as needed Viagra 25 202- No 1{table QD take 1 Please [facility] mg tablet 02-19 07-11 t} tablet by discard [facility] 00:00: 00:00 oral route any 00 :00 every day remaining as needed refills approximat from [facility] 1 hour previous before scripts sexual activity as needed atorvastati No 1{table Q1D take 1 [facility] n 20 mg 4-11 t} tablet by [facility] tablet 00:00: oral route 00 every day for cholestero l glimepiride No take 1 [facility] 1 mg tablet 4-11 tablet by [facility] 00:00: oral route 00 every day in the morning with food for diabetes lisinopril No 1{table Q1D take 1 [facility] 20 mg 4-11 t} tablet by [facility] tablet 00:00: oral route 00 every day for blood pressure metformin No 1{table Q12H take 1 [facility] 500 mg 4-11 t} tablet by [facility] tablet 00:00: oral route 00 2 times every day with morning and evening meals Viagra No 1{table QD take 1 Please [facility] mg tablet 4-11 t} tablet by discard [facility] 00:00: oral route any 00 every day remaining as needed refills approximat from [facility] 1 hour previous before scripts sexual activity as needed atorvastati No 1{table Q1D take 1 [facility] n 20 mg 4-11 t} tablet by [facility] tablet 00:00: oral route 00 every day for cholestero l glimepiride No take 1 [facility] 1 mg tablet 4-11 tablet by [facility] 00:00: oral route 00 every day in the morning with food for diabetes lisinopril No 1{table Q1D take 1 [facility] 20 mg 4-11 t} tablet by [facility] tablet 00:00: oral route 00 every day for blood pressure metformin 0 No 1{table Q12H take 1 [facility] 500 mg 4-11 t} tablet by [facility] tablet 00:00: oral route 00 2 times every day with morning and evening meals Viagra 25 No 1{table QD take 1 Please [facility] mg tablet 4-11 t} tablet by discard [facility] 00:00: oral route any 00 every day remaining as needed refills approximat from [facility] 1 hour previous before scripts sexual activity as needed Viagra 25 No 1{table QD take 1 Please [facility] mg tablet 4-11 t} tablet by discard [facility] 00:00: oral route any 00 every day remaining as needed refills approximat from [facility] 1 hour previous before scripts sexual activity as needed atorvastati No 1{table Q1D take 1 [facility] n 20 mg 4-11 t} tablet by [facility] tablet 00:00: oral route 00 every day for cholestero l glimepiride No take 1 [facility] 1 mg tablet 4-11 tablet by [facility] 00:00: oral route 00 every day in the morning with food for diabetes lisinopril 0 No 1{table Q1D take 1 [facility] 20 mg 4-11 t} tablet by [facility] tablet 00:00: oral route 00 every day for blood pressure metformin No 1{table Q12H take 1 [facility] 500 mg 4-11 t} tablet by [facility] tablet 00:00: oral route 00 2 times every day with morning and evening meals atorvastati 2021-0 2021- No 1{table Q1D take 1 [facility] n 20 mg 4-11 07-11 t} tablet by [facility] tablet 00:00: 00:00 oral route 00 :00 every day for cholestero l glimepiride 2021-0 2021- No take 1 [facility] 1 mg tablet 4-11 07-11 tablet by [facility] 00:00: 00:00 oral route 00 :00 every day in the morning with food for diabetes lisinopril 2021-0 2021- No 1{table Q1D take 1 [facility] 20 mg 4-11 07-11 t} tablet by [facility] tablet 00:00: 00:00 oral route 00 :00 every day for blood pressure metformin 2021-0 2021- No 1{table Q12H take 1 [facility] 500 mg 11-20 t} tablet by [facility] tablet 00:00: 00:00 oral route 00 :00 2 times every day with morning and evening meals Viagra 25 2021- No 1{table QD take 1 Please [facility] mg tablet 11-20 t} tablet by discard [facility] 00:00: 00:00 oral route any 00 :00 every day remaining as needed refills approximat from [facility] 1 hour previous before scripts sexual activity as needed atorvastati 2021- No 1{table Q1D take 1 [facility] n 20 mg 11-20 t} tablet by [facility] tablet 00:00: 00:00 oral route 00 :00 every day for cholestero l glimepiride 2021- No take 1 [facility] 1 mg tablet 11-20 tablet by [facility] 00:00: 00:00 oral route 00 :00 every day in the morning with food for diabetes lisinopril 2021-2021- No 1{table Q1D take 1 [facility] 20 mg 11-20 t} tablet by [facility] tablet 00:00: 00:00 oral route 00 :00 every day for blood pressure metformin 2021-0 2021- No 1{table Q12H take 1 [facility] 500 mg 11-20 t} tablet by [facility] tablet 00:00: 00:00 oral route 00 :00 2 times every day with morning and evening meals Viagra 25 2021- No 1{table QD take 1 Please [facility] mg tablet 11-20 t} tablet by discard e [facility] 00:00: 00:00 oral route any 00 :00 every day remaining as needed refills approximat from [facility] 1 hour previous before scripts sexual activity as needed atorvastati 2021- No 1{table Q1D take 1 [facility] n 20 mg 11-20 t} tablet by [facility] tablet 00:00: 00:00 oral route 00 :00 every day for cholestero l glimepiride 2021- No take 1 [facility] 1 mg tablet 11-20 tablet by [facility] 00:00: 00:00 oral route 00 :00 every day in the morning with food for diabetes lisinopril 2021- No 1{table Q1D take 1 [facility] 20 mg 11-20 t} tablet by [facility] tablet 00:00: 00:00 oral route 00 :00 every day for blood pressure metformin 2021-2021- No 1{table Q12H take 1 [facility] 500 mg 11-20 t} tablet by [facility] tablet 00:00: 00:00 oral route 00 :00 2 times every day with morning and evening meals Viagra 25 2021- No 1{table QD take 1 Please [facility] mg tablet 11-20 t} tablet by discard e [facility] 00:00: 00:00 oral route any 00 :00 every day remaining as needed refills approximat from [facility] 1 hour previous before scripts sexual activity as needed atorvastati 2021- No 1{table Q1D take 1 [facility] n 20 mg 11-20 t} tablet by [facility] tablet 00:00: 00:00 oral route 00 :00 every day for cholestero l glimepiride 2021- No take 1 [facility] 1 mg tablet 11-20 tablet by [facility] 00:00: 00:00 oral route 00 :00 every day in the morning with food for diabetes lisinopril 2021- No 1{table Q1D take 1 [facility] 20 mg 11-20 t} tablet by [facility] tablet 00:00: 00:00 oral route 00 :00 every day for blood pressure metformin 2021-2021- No 1{table Q12H take 1 [facility] 500 mg 11-20 t} tablet by [facility] tablet 00:00: 00:00 oral route 00 :00 2 times every day with morning and evening meals Viagra 25 2021- No 1{table QD take 1 Please [facility] mg tablet 11-20 t} tablet by discard e [facility] 00:00: 00:00 oral route any 00 :00 every day remaining as needed refills approximat from [facility] 1 hour previous before scripts sexual activity as needed atorvastati 2021- No 1{table Q1D take 1 [facility] n 20 mg 11-20 t} tablet by [facility] tablet 00:00: 00:00 oral route 00 :00 every day for cholestero l glimepiride 2021- No take 1 [facility] 1 mg tablet 11-20 tablet by [facility] 00:00: 00:00 oral route 00 :00 every day in the morning with food for diabetes lisinopril 2021- No 1{table Q1D take 1 [facility] 20 mg 11-20 t} tablet by [facility] tablet 00:00: 00:00 oral route 00 :00 every day for blood pressure metformin 2021-2021- No 1{table Q12H take 1 [facility] 500 mg 11-20 t} tablet by [facility] tablet 00:00: 00:00 oral route 00 :00 2 times every day with morning and evening meals Viagra 25 2021- No 1{table QD take 1 Please [facility] mg tablet 11-20 t} tablet by [facility] 00:00: 00:00 oral route any 00 :00 every day remaining as needed refills approximat from [facility] 1 hour previous before scripts sexual activity as needed atorvastati 2021- No 1{table Q1D take 1 [facility] n 20 mg 11-20 t} tablet by [facility] tablet 00:00: 00:00 oral route 00 :00 every day for cholestero l glimepiride 2021- No take 1 [facility] 1 mg tablet 11-20 tablet by [facility] 00:00: 00:00 oral route 00 :00 every day in the morning with food for diabetes lisinopril 2021- No 1{table Q1D take 1 [facility] 20 mg 11-20 t} tablet by [facility] tablet 00:00: 00:00 oral route 00 :00 every day for blood pressure metformin 2021- No 1{table Q12H take 1 [facility] 500 mg 11-20 t} tablet by [facility] tablet 00:00: 00:00 oral route 00 :00 2 times every day with morning and evening meals Viagra 25 2021- No 1{table QD take 1 Please [facility] mg tablet 11-20 t} tablet by discard e [facility] 00:00: 00:00 oral route any 00 :00 every day remaining as needed refills approximat from [facility] 1 hour previous before scripts sexual activity as needed atorvastati 2021- No 1{table Q1D take 1 [facility] n 20 mg 11-20 t} tablet by [facility] tablet 00:00: 00:00 oral route 00 :00 every day for cholestero l glimepiride 2021- No take 1 [facility] 1 mg tablet 11-20 tablet by [facility] 00:00: 00:00 oral route 00 :00 every day in the morning with food for diabetes lisinopril 2021- No 1{table Q1D take 1 [facility] 20 mg 11-20 t} tablet by [facility] tablet 00:00: 00:00 oral route 00 :00 every day for blood pressure metformin 2021- No 1{table Q12H take 1 [facility] 500 mg 11-20 t} tablet by [facility] tablet 00:00: 00:00 oral route 00 :00 2 times every day with morning and evening meals Viagra 25 2021- No 1{table QD take 1 Please [facility] mg tablet 11-20 t} tablet by discard e [facility] 00:00: 00:00 oral route any 00 :00 every day remaining as needed refills approximat from [facility] 1 hour previous before scripts sexual activity as needed atorvastati 2021- No 1{table Q1D take 1 [facility] n 20 mg 11-20 t} tablet by [facility] tablet 00:00: 00:00 oral route 00 :00 every day for cholestero l glimepiride 2021- No take 1 [facility] 1 mg tablet 11-20 tablet by [facility] 00:00: 00:00 oral route 00 :00 every day in the morning with food for diabetes lisinopril 2021-0 2021- No 1{table Q1D take 1 [facility] 20 mg 11-20 t} tablet by [facility] tablet 00:00: 00:00 oral route 00 :00 every day for blood pressure metformin 2021-0 2021- No 1{table Q12H take 1 [facility] 500 mg 11-20 t} tablet by [facility] tablet 00:00: 00:00 oral route 00 :00 2 times every day with morning and evening meals Viagra 25 2021-0 2021- No 1{table QD take 1 Please [facility] mg tablet 11-20 t} tablet by discard e [facility] 00:00: 00:00 oral route any 00 :00 every day remaining as needed refills approximat from [facility] 1 hour previous before scripts sexual activity as needed atorvastati 2021- No 1{table Q1D take 1 [facility] n 20 mg 11-20 t} tablet by [facility] tablet 00:00: 00:00 oral route 00 :00 every day for cholestero l glimepiride 2021-2021- No take 1 [facility] 1 mg tablet 11-20 tablet by [facility] 00:00: 00:00 oral route 00 :00 every day in the morning with food for diabetes lisinopril 2021-0 2021- No 1{table Q1D take 1 [facility] 20 mg 11-20 t} tablet by [facility] tablet 00:00: 00:00 oral route 00 :00 every day for blood pressure metformin 2021-0 2021- No 1{table Q12H take 1 [facility] 500 mg 11-20 t} tablet by [facility] tablet 00:00: 00:00 oral route 00 :00 2 times every day with morning and evening meals Viagra 25 2021-0 2021- No 1{table QD take 1 Please [facility] mg tablet 11-20 t} tablet by discard e [facility] 00:00: 00:00 oral route any 00 :00 every day remaining as needed refills approximat from [facility] 1 hour previous before scripts sexual activity as needed atorvastati 2021- No 1{table Q1D take 1 [facility] n 20 mg 11-20 t} tablet by [facility] tablet 00:00: 00:00 oral route 00 :00 every day for cholestero l glimepiride 2021- No take 1 [facility] 1 mg tablet 11-20 tablet by [facility] 00:00: 00:00 oral route 00 :00 every day in the morning with food for diabetes lisinopril 2021- No 1{table Q1D take 1 [facility] 20 mg 11-20 t} tablet by [facility] tablet 00:00: 00:00 oral route 00 :00 every day for blood pressure metformin 2021- No 1{table Q12H take 1 [facility] 500 mg 11-20 t} tablet by [facility] tablet 00:00: 00:00 oral route 00 :00 2 times every day with morning and evening meals Viagra 25 2021- No 1{table QD take 1 Please [facility] mg tablet 11-20 t} tablet by prince[facility] e [facility] 00:00: 00:00 oral route any 00 :00 every day remaining as needed refills approximat from [facility] 1 hour previous before scripts sexual activity as needed atorvastati 2021- No 1{table Q1D take 1 [facility] n 20 mg 11-20 t} tablet by [facility] tablet 00:00: 00:00 oral route 00 :00 every day for cholestero l glimepiride 2021- No take 1 [facility] 1 mg tablet 11-20 tablet by [facility] 00:00: 00:00 oral route 00 :00 every day in the morning with food for diabetes lisinopril 2021- No 1{table Q1D take 1 [facility] 20 mg 11-20 t} tablet by [facility] tablet 00:00: 00:00 oral route 00 :00 every day for blood pressure metformin 2021- No 1{table Q12H take 1 [facility] 500 mg 11-20 t} tablet by [facility] tablet 00:00: 00:00 oral route 00 :00 2 times every day with morning and evening meals Viagra 202- No 1{table QD take 1 Please [facility] mg tablet 411 07-11 t} tablet by [facility] 00:00: 00:00 oral route any 00 :00 every day remaining as needed refills approximat from [facility] 1 hour previous before scripts sexual activity as needed atorvastati No 1{table Q1D take 1 [facility] n 20 mg 1-14 t} tablet by [facility] tablet 00:00: oral route 00 every day for cholestero l glimepiride No take 1 [facility] 1 mg tablet 1-14 tablet by [facility] 00:00: oral route 00 every day in the morning with food for diabetes lisinopril No 1{table Q1D take 1 [facility] 20 mg 1-14 t} tablet by [facility] tablet 00:00: oral route 00 every day for blood pressure metformin No 1{table Q12H take 1 [facility] 500 mg 1-14 t} tablet by [facility] tablet 00:00: oral route 00 2 times every day with morning and evening meals Viagra No 1{table QD take 1 [facility] mg tablet 1-14 t} tablet by [facility] 00:00: oral route 00 every day as needed approximat [facility] 1 hour before sexual activity as needed atorvastati No 1{table Q1D take 1 [facility] n 20 mg 1-14 t} tablet by [facility] tablet 00:00: oral route 00 every day for cholestero l glimepiride No take 1 [facility] 1 mg tablet 1-14 tablet by [facility] 00:00: oral route 00 every day in the morning with food for diabetes lisinopril No 1{table Q1D take 1 [facility] 20 mg 1-14 t} tablet by [facility] tablet 00:00: oral route 00 every day for blood pressure metformin No 1{table Q12H take 1 [facility] 500 mg 1-14 t} tablet by [facility] tablet 00:00: oral route 00 2 times every day with morning and evening meals Viagra 25 2022-0 No 1{table QD take 1 [facility] mg tablet 1-14 t} tablet by [facility] 00:00: oral route 00 every day as needed approximat [facility] 1 hour before sexual activity as needed atorvastati 2021-0 No 1{table Q1D take 1 [facility] n 20 mg 1-14 t} tablet by [facility] tablet 00:00: oral route 00 every day for cholestero l glimepiride 0 No take 1 [facility] 1 mg tablet 1-14 tablet by [facility] 00:00: oral route 00 every day in the morning with food for diabetes lisinopril 0 No 1{table Q1D take 1 [facility] 20 mg 1-14 t} tablet by [facility] tablet 00:00: oral route 00 every day for blood pressure metformin 2021-0 No 1{table Q12H take 1 [facility] 500 mg 1-14 t} tablet by [facility] tablet 00:00: oral route 00 2 times every day with morning and evening meals Viagra 25 No 1{table QD take 1 [facility] mg tablet 1-14 t} tablet by [facility] 00:00: oral route 00 every day as needed approximat [facility] 1 hour before sexual activity as needed atorvastati 2021-0 202- No 1{table Q1D take 1 [facility] n 20 mg -14 -11 t} tablet by [facility] tablet 00:00: 00:00 oral route 00 :00 every day for cholestero l glimepiride 2021-0 2021- No take 1 [facility] 1 mg tablet 08-25-11 tablet by [facility] 00:00: 00:00 oral route 00 :00 every day in the morning with food for diabetes lisinopril 2021-0 202- No 1{table Q1D take 1 [facility] 20 mg -14 -11 t} tablet by [facility] tablet 00:00: 00:00 oral route 00 :00 every day for blood pressure metformin 2021-0 202- No 1{table Q12H take 1 [facility] 500 mg -14 -11 t} tablet by [facility] tablet 00:00: 00:00 oral route 00 :00 2 times every day with morning and evening meals Viagra 25 2021- No 1{table QD take 1 [facility] mg tablet 08-25 t} tablet by [facility] 00:00: 00:00 oral route 00 :00 every day as needed approximat [facility] 1 hour before sexual activity as needed atorvastati 2021- No 1{table Q1D take 1 [facility] n 20 mg 08-25 t} tablet by [facility] tablet 00:00: 00:00 oral route 00 :00 every day for cholestero l glimepiride 2021- No take 1 [facility] 1 mg tablet 08-25 tablet by [facility] 00:00: 00:00 oral route 00 :00 every day in the morning with food for diabetes lisinopril 2021- No 1{table Q1D take 1 [facility] 20 mg 08-25 t} tablet by [facility] tablet 00:00: 00:00 oral route 00 :00 every day for blood pressure metformin 2021- No 1{table Q12H take 1 [facility] 500 mg 08-25 t} tablet by [facility] tablet 00:00: 00:00 oral route 00 :00 2 times every day with morning and evening meals Viagra 25 2021- No 1{table QD take 1 [facility] mg tablet 08-25 t} tablet by [facility] 00:00: 00:00 oral route 00 :00 every day as needed approximat [facility] 1 hour before sexual activity as needed atorvastati 2021- No 1{table Q1D take 1 [facility] n 20 mg 08-25 t} tablet by [facility] tablet 00:00: 00:00 oral route 00 :00 every day for cholestero l glimepiride 2021- No take 1 [facility] 1 mg tablet 08-25 tablet by [facility] 00:00: 00:00 oral route 00 :00 every day in the morning with food for diabetes lisinopril 2021- No 1{table Q1D take 1 [facility] 20 mg 08-25 t} tablet by [facility] tablet 00:00: 00:00 oral route 00 :00 every day for blood pressure metformin 2021-0 2021- No 1{table Q12H take 1 [facility] 500 mg 08-25 t} tablet by [facility] tablet 00:00: 00:00 oral route 00 :00 2 times every day with morning and evening meals Viagra 25 2021- No 1{table QD take 1 [facility] mg tablet 08-25 t} tablet by [facility] 00:00: 00:00 oral route 00 :00 every day as needed approximat [facility] 1 hour before sexual activity as needed atorvastati 2021- No 1{table Q1D take 1 [facility] n 20 mg 08-25 t} tablet by [facility] tablet 00:00: 00:00 oral route 00 :00 every day for cholestero l glimepiride 2021-2021- No take 1 [facility] 1 mg tablet 08-25 tablet by [facility] 00:00: 00:00 oral route 00 :00 every day in the morning with food for diabetes lisinopril 2021-2021- No 1{table Q1D take 1 [facility] 20 mg 08-25 t} tablet by [facility] tablet 00:00: 00:00 oral route 00 :00 every day for blood pressure metformin 2021-2021- No 1{table Q12H take 1 [facility] 500 mg 08-25 t} tablet by [facility] tablet 00:00: 00:00 oral route 00 :00 2 times every day with morning and evening meals Viagra 25 2021- No 1{table QD take 1 [facility] mg tablet 08-25 t} tablet by [facility] 00:00: 00:00 oral route 00 :00 every day as needed approximat [facility] 1 hour before sexual activity as needed atorvastati 2021-2021- No 1{table Q1D take 1 [facility] n 20 mg 08-25 t} tablet by [facility] tablet 00:00: 00:00 oral route 00 :00 every day for cholestero l glimepiride 2021-2021- No take 1 [facility] 1 mg tablet 08-25 tablet by [facility] 00:00: 00:00 oral route 00 :00 every day in the morning with food for diabetes lisinopril 2021-0 2021- No 1{table Q1D take 1 [facility] 20 mg 08-25 t} tablet by [facility] tablet 00:00: 00:00 oral route 00 :00 every day for blood pressure metformin 2021-0 2021- No 1{table Q12H take 1 [facility] 500 mg 08-25 t} tablet by [facility] tablet 00:00: 00:00 oral route 00 :00 2 times every day with morning and evening meals Viagra 25 2021-0 2021- No 1{table QD take 1 [facility] mg tablet 08-25 t} tablet by [facility] 00:00: 00:00 oral route 00 :00 every day as needed approximat [facility] 1 hour before sexual activity as needed atorvastati 2021-2021- No 1{table Q1D take 1 [facility] n 20 mg 08-25 t} tablet by [facility] tablet 00:00: 00:00 oral route 00 :00 every day for cholestero l glimepiride 2021-2021- No take 1 [facility] 1 mg tablet 08-25 tablet by [facility] 00:00: 00:00 oral route 00 :00 every day in the morning with food for diabetes lisinopril 2021-0 2021- No 1{table Q1D take 1 [facility] 20 mg 08-25 t} tablet by [facility] tablet 00:00: 00:00 oral route 00 :00 every day for blood pressure metformin 2021-0 2021- No 1{table Q12H take 1 [facility] 500 mg 08-25 t} tablet by [facility] tablet 00:00: 00:00 oral route 00 :00 2 times every day with morning and evening meals Viagra 25 2021-0 2021- No 1{table QD take 1 [facility] mg tablet 08-25 t} tablet by [facility] 00:00: 00:00 oral route 00 :00 every day as needed approximat [facility] 1 hour before sexual activity as needed atorvastati 2021-0 2021- No 1{table Q1D take 1 [facility] n 20 mg 08-25 t} tablet by [facility] tablet 00:00: 00:00 oral route 00 :00 every day for cholestero l glimepiride 2021- No take 1 [facility] 1 mg tablet 08-25 tablet by [facility] 00:00: 00:00 oral route 00 :00 every day in the morning with food for diabetes lisinopril 2021- No 1{table Q1D take 1 [facility] 20 mg 08-25 t} tablet by [facility] tablet 00:00: 00:00 oral route 00 :00 every day for blood pressure metformin 2021- No 1{table Q12H take 1 [facility] 500 mg 08-25 t} tablet by [facility] tablet 00:00: 00:00 oral route 00 :00 2 times every day with morning and evening meals Viagra 25 2021- No 1{table QD take 1 [facility] mg tablet 08-25 t} tablet by [facility] 00:00: 00:00 oral route 00 :00 every day as needed approximat [facility] 1 hour before sexual activity as needed atorvastati 2021- No 1{table Q1D take 1 [facility] n 20 mg 08-25 t} tablet by [facility] tablet 00:00: 00:00 oral route 00 :00 every day for cholestero l glimepiride 2021- No take 1 [facility] 1 mg tablet 08-25 tablet by [facility] 00:00: 00:00 oral route 00 :00 every day in the morning with food for diabetes lisinopril 2021- No 1{table Q1D take 1 [facility] 20 mg 08-25 t} tablet by [facility] tablet 00:00: 00:00 oral route 00 :00 every day for blood pressure metformin 2021-2021- No 1{table Q12H take 1 [facility] 500 mg 08-25 t} tablet by [facility] tablet 00:00: 00:00 oral route 00 :00 2 times every day with morning and evening meals Viagra 25 2021- No 1{table QD take 1 [facility] mg tablet 08-25 t} tablet by [facility] 00:00: 00:00 oral route 00 :00 every day as needed approximat [facility] 1 hour before sexual activity as needed atorvastati 2021- No 1{table Q1D take 1 [facility] n 20 mg 08-25 t} tablet by [facility] tablet 00:00: 00:00 oral route 00 :00 every day for cholestero l glimepiride 2021- No take 1 [facility] 1 mg tablet 08-25 tablet by [facility] 00:00: 00:00 oral route 00 :00 every day in the morning with food for diabetes lisinopril 2021- No 1{table Q1D take 1 [facility] 20 mg 08-25 t} tablet by [facility] tablet 00:00: 00:00 oral route 00 :00 every day for blood pressure metformin 2021-2021- No 1{table Q12H take 1 [facility] 500 mg 08-25 t} tablet by [facility] tablet 00:00: 00:00 oral route 00 :00 2 times every day with morning and evening meals Viagra 25 2021- No 1{table QD take 1 [facility] mg tablet 08-25 t} tablet by [facility] 00:00: 00:00 oral route 00 :00 every day as needed approximat [facility] 1 hour before sexual activity as needed atorvastati 2021- No 1{table Q1D take 1 [facility] n 20 mg 08-25 t} tablet by [facility] tablet 00:00: 00:00 oral route 00 :00 every day for cholestero l glimepiride 2021- No take 1 [facility] 1 mg tablet 08-25 tablet by [facility] 00:00: 00:00 oral route 00 :00 every day in the morning with food for diabetes lisinopril 2021- No 1{table Q1D take 1 [facility] 20 mg 08-25 t} tablet by [facility] tablet 00:00: 00:00 oral route 00 :00 every day for blood pressure metformin 2021-2021- No 1{table Q12H take 1 [facility] 500 mg 08-25 t} tablet by [facility] tablet 00:00: 00:00 oral route 00 :00 2 times every day with morning and evening meals Viagra 25 2021- No 1{table QD take 1 [facility] mg tablet 08-25 t} tablet by [facility] 00:00: 00:00 oral route 00 :00 every day as needed approximat flor 1 hour before sexual activity as needed atorvastati 2021-2021- No 1{table Q1D take 1 [facility] n 20 mg 08-25 t} tablet by [facility] tablet 00:00: 00:00 oral route 00 :00 every day for cholestero l glimepiride 2021-2021- No take 1 [facility] 1 mg tablet 08-25 tablet by [facility] 00:00: 00:00 oral route 00 :00 every day in the morning with food for diabetes lisinopril 2021-2021- No 1{table Q1D take 1 [facility] 20 mg 08-25 t} tablet by [facility] tablet 00:00: 00:00 oral route 00 :00 every day for blood pressure metformin 2021-2021- No 1{table Q12H take 1 [facility] 500 mg 08-25 t} tablet by [facility] tablet 00:00: 00:00 oral route 00 :00 2 times every day with morning and evening meals Viagra 25 2021- No 1{table QD take 1 [facility] mg tablet 08-25 t} tablet by [facility] 00:00: 00:00 oral route 00 :00 every day as needed approximat flor 1 hour before sexual activity as needed atorvastati 2021-2021- No 1{table Q1D take 1 [facility] n 20 mg 08-25 t} tablet by [facility] tablet 00:00: 00:00 oral route 00 :00 every day for cholestero l glimepiride 2021- No take 1 [facility] 1 mg tablet 08-25 tablet by [facility] 00:00: 00:00 oral route 00 :00 every day in the morning with food for diabetes lisinopril 2021-2021- No 1{table Q1D take 1 [facility] 20 mg 08-25 t} tablet by [facility] tablet 00:00: 00:00 oral route 00 :00 every day for blood pressure metformin 2021-0 2021- No 1{table Q12H take 1 [facility] 500 mg 08-25 t} tablet by [facility] tablet 00:00: 00:00 oral route 00 :00 2 times every day with morning and evening meals Viagra 25 2021-0 2021- No 1{table QD take 1 [facility] mg tablet 08-25 t} tablet by [facility] 00:00: 00:00 oral route 00 :00 every day as needed approximat flor 1 hour before sexual activity as needed atorvastati 2021- 202- No 1{table Q1D take 1 [facility] 20 mg 08-25 t} tablet by [facility] tablet 00:00: 00:00 oral route 00 :00 every day for cholestero l glimepiride 2021-2021- No take 1 [facility] 1 mg tablet 08-25 tablet by [facility] 00:00: 00:00 oral route 00 :00 every day in the morning with food for diabetes lisinopril 2021-0 2021- No 1{table Q1D take 1 [facility] 20 mg 08-25 t} tablet by [facility] tablet 00:00: 00:00 oral route 00 :00 every day for blood pressure metformin 2021-0 2021- No 1{table Q12H take 1 [facility] 500 mg 08-25 t} tablet by [facility] tablet 00:00: 00:00 oral route 00 :00 2 times every day with morning and evening meals Viagra 25 2021-0 2021- No 1{table QD take 1 [facility] mg tablet 08-25 t} tablet by [facility] 00:00: 00:00 oral route 00 :00 every day as needed approximat flor 1 hour before sexual activity as needed atorvastati 2021-0 2021- No 1{table Q1D take 1 [facility] n 20 mg 08-25 t} tablet by [facility] tablet 00:00: 00:00 oral route 00 :00 every day for cholestero l glimepiride 2021- No take 1 [facility] 1 mg tablet 08-25 tablet by [facility] 00:00: 00:00 oral route 00 :00 every day in the morning with food for diabetes lisinopril 2021- No 1{table Q1D take 1 [facility] 20 mg 08-25 t} tablet by [facility] tablet 00:00: 00:00 oral route 00 :00 every day for blood pressure metformin 2021- No 1{table Q12H take 1 [facility] 500 mg 08-25 t} tablet by [facility] tablet 00:00: 00:00 oral route 00 :00 2 times every day with morning and evening meals Viagra 25 2021- No 1{table QD take 1 [facility] mg tablet 08-25 t} tablet by [facility] 00:00: 00:00 oral route 00 :00 every day as needed approximat flor 1 hour before sexual activity as needed Viagra 25 2020-08 No 1{table QD take 1 [facility] mg tablet 0-15 t} tablet by [facility] 00:00: oral route 00 every day as needed approximat flor 1 hour before sexual activity as needed metformin 2020-08 No 1{table Q12H take 1 [facility] 500 mg 0-15 t} tablet by [facility] tablet 00:00: oral route 00 2 times every day with morning and evening meals lisinopril 2020-08 No 1{table Q1D take 1 [facility] 20 mg 0-15 t} tablet by [facility] tablet 00:00: oral route 00 every day for blood pressure glimepiride 2020-08 No take 1 [facility] 1 mg tablet 0-15 tablet by [facility] 00:00: oral route 00 every day in the morning with food for diabetes atorvastati 2020-08 No 1{table Q1D take 1 [facility] n 20 mg 0-15 t} tablet by [facility] tablet 00:00: oral route 00 every day for cholestero l Viagra 25 2020-08 No 1{table QD take 1 [facility] mg tablet 0-15 t} tablet by [facility] 00:00: oral route 00 every day as needed approximat flor 1 hour before sexual activity as needed metformin 2020-08 No 1{table Q12H take 1 [facility] 500 mg 0-15 t} tablet by [facility] tablet 00:00: oral route 00 2 times every day with morning and evening meals lisinopril 2020-08 No 1{table Q1D take 1 [facility] 20 mg 0-15 t} tablet by [facility] tablet 00:00: oral route 00 every day for blood pressure glimepiride 2020-08 No take 1 [facility] 1 mg tablet 0-15 tablet by [facility] 00:00: oral route 00 every day in the morning with food for diabetes atorvastati 2020-08 No 1{table Q1D take 1 [facility] n 20 mg 0-15 t} tablet by [facility] tablet 00:00: oral route 00 every day for cholestero l Viagra 25 2020-08- No 1{table QD take 1 [facility] mg tablet 0-15 01-14 t} tablet by [facility] 00:00: 00:00 oral route 00 :00 every day as needed approximat flor 1 hour before sexual activity as needed metformin 2020-08- No 1{table Q12H take 1 [facility] 500 mg 0-15 01-14 t} tablet by [facility] tablet 00:00: 00:00 oral route 00 :00 2 times every day with morning and evening meals lisinopril 2020-08- No 1{table Q1D take 1 [facility] 20 mg 0-15 01-14 t} tablet by [facility] tablet 00:00: 00:00 oral route 00 :00 every day for blood pressure glimepiride 2020-08- No take 1 [facility] 1 mg tablet 0-15 01-14 tablet by [facility] 00:00: 00:00 oral route 00 :00 every day in the morning with food for diabetes atorvastati 2020-08- No 1{table Q1D take 1 [facility] 20 mg 0-15 01-14 t} tablet by [facility] tablet 00:00: 00:00 oral route 00 :00 every day for cholestero l Viagra 25 2020-08- No 1{table QD take 1 [facility] mg tablet 0-15 -14 t} tablet by [facility] 00:00: 00:00 oral route 00 :00 every day as needed approximat flor 1 hour before sexual activity as needed metformin 2020-08- No 1{table Q12H take 1 [facility] 500 mg 0-15 -14 t} tablet by [facility] tablet 00:00: 00:00 oral route 00 :00 2 times every day with morning and evening meals lisinopril 2020-08- No 1{table Q1D take 1 [facility] 20 mg 0-15 -14 t} tablet by [facility] tablet 00:00: 00:00 oral route 00 :00 every day for blood pressure glimepiride 2020-08- No take 1 [facility] 1 mg tablet 014 tablet by [facility] 00:00: 00:00 oral route 00 :00 every day in the morning with food for diabetes atorvastati 2020-08- No 1{table Q1D take 1 [facility] 20 mg 0-15 -14 t} tablet by [facility] tablet 00:00: 00:00 oral route 00 :00 every day for cholestero l Viagra 25 2020-08- No 1{table QD take 1 [facility] mg tablet 0-15 -14 t} tablet by [facility] 00:00: 00:00 oral route 00 :00 every day as needed approximat flor 1 hour before sexual activity as needed metformin 2020-08- No 1{table Q12H take 1 [facility] 500 mg 0-15 -14 t} tablet by [facility] tablet 00:00: 00:00 oral route 00 :00 2 times every day with morning and evening meals lisinopril 2020-08- No 1{table Q1D take 1 [facility] 20 mg 0-15 -14 t} tablet by [facility] tablet 00:00: 00:00 oral route 00 :00 every day for blood pressure glimepiride 2020-08- No take 1 [facility] 1 mg tablet 0-15 -14 tablet by [facility] 00:00: 00:00 oral route 00 :00 every day in the morning with food for diabetes atorvastati 2020-08- No 1{table Q1D take 1 [facility] 20 mg 0-15 -14 t} tablet by [facility] tablet 00:00: 00:00 oral route 00 :00 every day for cholestero l Viagra 25 2020-08- No 1{table QD take 1 [facility] mg tablet 008-25 t} tablet by [facility] 00:00: 00:00 oral route 00 :00 every day as needed approximat flor 1 hour before sexual activity as needed metformin 2020-08- No 1{table Q12H take 1 [facility] 500 mg 008-25 t} tablet by [facility] tablet 00:00: 00:00 oral route 00 :00 2 times every day with morning and evening meals lisinopril 2020-08- No 1{table Q1D take 1 [facility] 20 mg 0-08-25 t} tablet by [facility] tablet 00:00: 00:00 oral route 00 :00 every day for blood pressure glimepiride 2020-08- No take 1 [facility] 1 mg tablet 08-25 tablet by [facility] 00:00: 00:00 oral route 00 :00 every day in the morning with food for diabetes atorvastati 2020-08- No 1{table Q1D take 1 [facility] 20 mg 0-15 14 t} tablet by [facility] tablet 00:00: 00:00 oral route 00 :00 every day for cholestero l atorvastati 2020-08- No 1{table Q1D take 1 [facility] 20 mg 0-15 -14 t} tablet by [facility] tablet 00:00: 00:00 oral route 00 :00 every day for cholestero l Viagra 25 2020-08- No 1{table QD take 1 [facility] mg tablet 015 08-25 t} tablet by [facility] 00:00: 00:00 oral route 00 :00 every day as needed approximat flor 1 hour before sexual activity as needed metformin 2020-08- No 1{table Q12H take 1 [facility] 500 mg 0-15 -14 t} tablet by [facility] tablet 00:00: 00:00 oral route 00 :00 2 times every day with morning and evening meals lisinopril 2020-08- No 1{table Q1D take 1 [facility] 20 mg 0-15 -14 t} tablet by [facility] tablet 00:00: 00:00 oral route 00 :00 every day for blood pressure glimepiride 2020-08- No take 1 [facility] 1 mg tablet 0-15 -14 tablet by [facility] 00:00: 00:00 oral route 00 :00 every day in the morning with food for diabetes Viagra 25 2020-08- No 1{table QD take 1 [facility] mg tablet 0-15 -14 t} tablet by [facility] 00:00: 00:00 oral route 00 :00 every day as needed approximat flor 1 hour before sexual activity as needed metformin 2020-08- No 1{table Q12H take 1 [facility] 500 mg 0-15 -14 t} tablet by [facility] tablet 00:00: 00:00 oral route 00 :00 2 times every day with morning and evening meals lisinopril 2020-08- No 1{table Q1D take 1 [facility] 20 mg 0-15 -14 t} tablet by [facility] tablet 00:00: 00:00 oral route 00 :00 every day for blood pressure glimepiride 2020-08- No take 1 [facility] 1 mg tablet 015 14 tablet by [facility] 00:00: 00:00 oral route 00 :00 every day in the morning with food for diabetes atorvastati 2020-08- No 1{table Q1D take 1 [facility] 20 mg 0-15 -14 t} tablet by [facility] tablet 00:00: 00:00 oral route 00 :00 every day for cholestero l Viagra 25 2020-08- No 1{table QD take 1 [facility] mg tablet 0-15 -14 t} tablet by [facility] 00:00: 00:00 oral route 00 :00 every day as needed approximat flor 1 hour before sexual activity as needed metformin 2020-08- No 1{table Q12H take 1 [facility] 500 mg 0-15 -14 t} tablet by [facility] tablet 00:00: 00:00 oral route 00 :00 2 times every day with morning and evening meals lisinopril 2020-08- No 1{table Q1D take 1 [facility] 20 mg 0-15 -14 t} tablet by [facility] tablet 00:00: 00:00 oral route 00 :00 every day for blood pressure glimepiride 2020-08- No take 1 [facility] 1 mg tablet 0-15 -14 tablet by [facility] 00:00: 00:00 oral route 00 :00 every day in the morning with food for diabetes atorvastati 2020-08- No 1{table Q1D take 1 [facility] 20 mg 0-15 -14 t} tablet by [facility] tablet 00:00: 00:00 oral route 00 :00 every day for cholestero l Viagra 25 2020-08- No 1{table QD take 1 [facility] mg tablet 0-15 -14 t} tablet by [facility] 00:00: 00:00 oral route 00 :00 every day as needed approximat flor 1 hour before sexual activity as needed metformin 2020-08- No 1{table Q12H take 1 [facility] 500 mg 0-15 -14 t} tablet by [facility] tablet 00:00: 00:00 oral route 00 :00 2 times every day with morning and evening meals lisinopril 2020-08- No 1{table Q1D take 1 [facility] 20 mg 0-15 -14 t} tablet by [facility] tablet 00:00: 00:00 oral route 00 :00 every day for blood pressure glimepiride 2020-08- No take 1 [facility] 1 mg tablet 0-15 -14 tablet by [facility] 00:00: 00:00 oral route 00 :00 every day in the morning with food for diabetes atorvastati 2020-08- No 1{table Q1D take 1 [facility] 20 mg 0-15 -14 t} tablet by [facility] tablet 00:00: 00:00 oral route 00 :00 every day for cholestero l Viagra 25 2020-08- No 1{table QD take 1 [facility] mg tablet 0-15 -14 t} tablet by [facility] 00:00: 00:00 oral route 00 :00 every day as needed approximat flor 1 hour before sexual activity as needed metformin 2020-08- No 1{table Q12H take 1 [facility] 500 mg 0-15 -14 t} tablet by [facility] tablet 00:00: 00:00 oral route 00 :00 2 times every day with morning and evening meals lisinopril 2020-08- No 1{table Q1D take 1 [facility] 20 mg 0-15 -14 t} tablet by [facility] tablet 00:00: 00:00 oral route 00 :00 every day for blood pressure glimepiride 2020-08- No take 1 [facility] 1 mg tablet 0-08-25 tablet by [facility] 00:00: 00:00 oral route 00 :00 every day in the morning with food for diabetes atorvastati 2020-08- No 1{table Q1D take 1 [facility] 20 mg 0-15 -14 t} tablet by [facility] tablet 00:00: 00:00 oral route 00 :00 every day for cholestero l Viagra 25 2020-08- No 1{table QD take 1 [facility] mg tablet 0-15 -14 t} tablet by [facility] 00:00: 00:00 oral route 00 :00 every day as needed approximat flor 1 hour before sexual activity as needed metformin 2020-08- No 1{table Q12H take 1 [facility] 500 mg 0-15 -14 t} tablet by [facility] tablet 00:00: 00:00 oral route 00 :00 2 times every day with morning and evening meals lisinopril 2020-08- No 1{table Q1D take 1 [facility] 20 mg 0-15 -14 t} tablet by [facility] tablet 00:00: 00:00 oral route 00 :00 every day for blood pressure glimepiride 2020-08- No take 1 [facility] 1 mg tablet 0-15 14 tablet by [facility] 00:00: 00:00 oral route 00 :00 every day in the morning with food for diabetes atorvastati 2020-2021- No 1{table Q1D take 1 [facility] 20 mg 0-15 -14 t} tablet by [facility] tablet 00:00: 00:00 oral route 00 :00 every day for cholestero l Viagra 25 2020-08- No 1{table QD take 1 [facility] mg tablet 0-15 -14 t} tablet by [facility] 00:00: 00:00 oral route 00 :00 every day as needed approximat flor 1 hour before sexual activity as needed metformin 2020-08- No 1{table Q12H take 1 [facility] 500 mg 0-15 -14 t} tablet by [facility] tablet 00:00: 00:00 oral route 00 :00 2 times every day with morning and evening meals lisinopril 2020-08- No 1{table Q1D take 1 [facility] 20 mg 0-15 -14 t} tablet by [facility] tablet 00:00: 00:00 oral route 00 :00 every day for blood pressure glimepiride 2020-08- No take 1 [facility] 1 mg tablet 0-14 tablet by [facility] 00:00: 00:00 oral route 00 :00 every day in the morning with food for diabetes atorvastati 2020-08- No 1{table Q1D take 1 [facility] 20 mg 0-15 -14 t} tablet by [facility] tablet 00:00: 00:00 oral route 00 :00 every day for cholestero l Viagra 25 2020-08- No 1{table QD take 1 [facility] mg tablet 0-15 -14 t} tablet by [facility] 00:00: 00:00 oral route 00 :00 every day as needed approximat flor 1 hour before sexual activity as needed metformin 2020-08- No 1{table Q12H take 1 [facility] 500 mg 0-15 -14 t} tablet by [facility] tablet 00:00: 00:00 oral route 00 :00 2 times every day with morning and evening meals lisinopril 2020-08- No 1{table Q1D take 1 [facility] 20 mg 0-15 -14 t} tablet by [facility] tablet 00:00: 00:00 oral route 00 :00 every day for blood pressure glimepiride 2020-08- No take 1 [facility] 1 mg tablet 0-15 -14 tablet by [facility] 00:00: 00:00 oral route 00 :00 every day in the morning with food for diabetes atorvastati 2020-08- No 1{table Q1D take 1 [facility] 20 mg 0-15 -14 t} tablet by [facility] tablet 00:00: 00:00 oral route 00 :00 every day for cholestero l Viagra 25 2020-08- No 1{table QD take 1 [facility] mg tablet 0-15 08-25 t} tablet by [facility] 00:00: 00:00 oral route 00 :00 every day as needed approximat flor 1 hour before sexual activity as needed metformin 2020-08- No 1{table Q12H take 1 [facility] 500 mg 0-15 - t} tablet by [facility] tablet 00:00: 00:00 oral route 00 :00 2 times every day with morning and evening meals lisinopril 2020-08- No 1{table Q1D take 1 [facility] 20 mg 0-15 -14 t} tablet by [facility] tablet 00:00: 00:00 oral route 00 :00 every day for blood pressure glimepiride 2020-08- No take 1 [facility] 1 mg tablet 015 -14 tablet by [facility] 00:00: 00:00 oral route 00 :00 every day in the morning with food for diabetes atorvastati 2020-08- No 1{table Q1D take 1 [facility] 20 mg 0-15 -14 t} tablet by [facility] tablet 00:00: 00:00 oral route 00 :00 every day for cholestero l Viagra 25 2020-08- No 1{table QD take 1 [facility] mg tablet 0-15 -14 t} tablet by [facility] 00:00: 00:00 oral route 00 :00 every day as needed approximat flor 1 hour before sexual activity as needed metformin 2020-08- No 1{table Q12H take 1 [facility] 500 mg 0-15 -14 t} tablet by [facility] tablet 00:00: 00:00 oral route 00 :00 2 times every day with morning and evening meals lisinopril 2020-08- No 1{table Q1D take 1 [facility] 20 mg 0-15 -14 t} tablet by [facility] tablet 00:00: 00:00 oral route 00 :00 every day for blood pressure glimepiride 2020-08- No take 1 [facility] 1 mg tablet 0-15 -14 tablet by [facility] 00:00: 00:00 oral route 00 :00 every day in the morning with food for diabetes atorvastati 2020-08- No 1{table Q1D take 1 [facility] 20 mg 0-15 -14 t} tablet by [facility] tablet 00:00: 00:00 oral route 00 :00 every day for cholestero l Viagra 25 2020-08- No 1{table QD take 1 [facility] mg tablet 0-15 -14 t} tablet by [facility] 00:00: 00:00 oral route 00 :00 every day as needed approximat flor 1 hour before sexual activity as needed metformin 2020-08- No 1{table Q12H take 1 [facility] 500 mg 0-15 -14 t} tablet by [facility] tablet 00:00: 00:00 oral route 00 :00 2 times every day with morning and evening meals lisinopril 2020-08- No 1{table Q1D take 1 [facility] 20 mg 0-15 -14 t} tablet by [facility] tablet 00:00: 00:00 oral route 00 :00 every day for blood pressure glimepiride 2020-08- No take 1 [facility] 1 mg tablet 0-15 -14 tablet by [facility] 00:00: 00:00 oral route 00 :00 every day in the morning with food for diabetes atorvastati 2020-08- No 1{table Q1D take 1 [facility] 20 mg 0-15 -14 t} tablet by [facility] tablet 00:00: 00:00 oral route 00 :00 every day for cholestero l Viagra 25 2020-08- No 1{table QD take 1 [facility] mg tablet 0-15 -14 t} tablet by [facility] 00:00: 00:00 oral route 00 :00 every day as needed approximat flor 1 hour before sexual activity as needed metformin 2020-08- No 1{table Q12H take 1 [facility] 500 mg 0-15 -14 t} tablet by [facility] tablet 00:00: 00:00 oral route 00 :00 2 times every day with morning and evening meals lisinopril 2020-08- No 1{table Q1D take 1 [facility] 20 mg 0-15 -14 t} tablet by [facility] tablet 00:00: 00:00 oral route 00 :00 every day for blood pressure glimepiride 2020-08- No take 1 [facility] 1 mg tablet 008-25 tablet by [facility] 00:00: 00:00 oral route 00 :00 every day in the morning with food for diabetes atorvastati 2020-08- No 1{table Q1D take 1 [facility] 20 mg 0-15 -14 t} tablet by [facility] tablet 00:00: 00:00 oral route 00 :00 every day for cholestero l Viagra 25 2020-08- No 1{table QD take 1 [facility] mg tablet 0-15 -14 t} tablet by [facility] 00:00: 00:00 oral route 00 :00 every day as needed approximat flor 1 hour before sexual activity as needed metformin 2020-08- No 1{table Q12H take 1 [facility] 500 mg 0-15 -14 t} tablet by [facility] tablet 00:00: 00:00 oral route 00 :00 2 times every day with morning and evening meals lisinopril 2020-08- No 1{table Q1D take 1 [facility] 20 mg 0-15 -14 t} tablet by [facility] tablet 00:00: 00:00 oral route 00 :00 every day for blood pressure glimepiride 2020-08- No take 1 [facility] 1 mg tablet 015 -14 tablet by [facility] 00:00: 00:00 oral route 00 :00 every day in the morning with food for diabetes atorvastati 2020-2021- No 1{table Q1D take 1 [facility] 20 mg 0-15 01-14 t} tablet by [facility] tablet 00:00: 00:00 oral route 00 :00 every day for cholestero l Viagra 25 No 1{table QD take 1 [facility] mg tablet 7-15 t} tablet by [facility] 00:00: oral route 00 every day as needed approximat flor 1 hour before sexual activity as needed metformin No 1{table Q12H take 1 [facility] 500 mg 7-15 t} tablet by [facility] tablet 00:00: oral route 00 2 times every day with morning and evening meals lisinopril No 1{table Q1D take 1 [facility] 20 mg 7-15 t} tablet by [facility] tablet 00:00: oral route 00 every day for blood pressure glimepiride No take 1 [facility] 1 mg tablet 7-15 tablet by [facility] 00:00: oral route 00 every day in the morning with food for diabetes atorvastati No 1{table Q1D take 1 [facility] n 20 mg 7-15 t} tablet by [facility] tablet 00:00: oral route 00 every day for cholestero l aspirin 81 No take 1 Please [facility] mg 7-15 tablet by [facility] tablet,[facility]gang 00:00: oral route any yed release 00 every day remaining at bedtime refills for heart from previous scripts naproxen No take 1 [facility] 500 mg 7-15 tablet by [facility] tablet 00:00: oral route 00 every 12 hours with food PRN pain naproxen No take 1 [facility] 500 mg 7-15 tablet by [facility] tablet 00:00: oral route 00 every 12 hours with food PRN pain naproxen No take 1 [facility] 500 mg 7-15 tablet by [facility] tablet 00:00: oral route 00 every 12 hours with food PRN pain naproxen 2020-0 2021- No take 1 [facility] 500 mg 7-15 01-14 tablet by [facility] tablet 00:00: 00:00 oral route 00 :00 every 12 hours with food PRN pain naproxen 2021-0 2022- No take 1 [facility] 500 mg 7-15 01-14 tablet by [facility] tablet 00:00: 00:00 oral route 00 :00 every 12 hours with food PRN pain naproxen 2021-0 2022- No take 1 [facility] 500 mg 7-15 -14 tablet by [facility] tablet 00:00: 00:00 oral route 00 :00 every 12 hours with food PRN pain naproxen 2021-0 2022- No take 1 [facility] 500 mg 7-15 -14 tablet by [facility] tablet 00:00: 00:00 oral route 00 :00 every 12 hours with food PRN pain naproxen 2021-0 2022- No take 1 [facility] 500 mg 7-15 -14 tablet by [facility] tablet 00:00: 00:00 oral route 00 :00 every 12 hours with food PRN pain naproxen 2021-0 2022- No take 1 [facility] 500 mg 7-15 -14 tablet by [facility] tablet 00:00: 00:00 oral route 00 :00 every 12 hours with food PRN pain naproxen 2021-0 2022- No take 1 [facility] 500 mg 7-15 -14 tablet by [facility] tablet 00:00: 00:00 oral route 00 :00 every 12 hours with food PRN pain naproxen 2021-0 2022- No take 1 [facility] 500 mg 7-15 -14 tablet by [facility] tablet 00:00: 00:00 oral route 00 :00 every 12 hours with food PRN pain naproxen 2021-0 2022- No take 1 [facility] 500 mg 7-15 -14 tablet by [facility] tablet 00:00: 00:00 oral route 00 :00 every 12 hours with food PRN pain naproxen 2021-0 2022- No take 1 [facility] 500 mg 7-15 -14 tablet by [facility] tablet 00:00: 00:00 oral route 00 :00 every 12 hours with food PRN pain naproxen 2021-0 2022- No take 1 [facility] 500 mg 7-15 -14 tablet by [facility] tablet 00:00: 00:00 oral route 00 :00 every 12 hours with food PRN pain naproxen 2020-0 2021- No take 1 [facility] 500 mg 7-15 01-14 tablet by [facility] tablet 00:00: 00:00 oral route 00 :00 every 12 hours with food PRN pain naproxen 2020-0 2021- No take 1 [facility] 500 mg 7-15 -14 tablet by [facility] tablet 00:00: 00:00 oral route 00 :00 every 12 hours with food PRN pain naproxen 2020-0 2021- No take 1 [facility] 500 mg 7-15 -14 tablet by [facility] tablet 00:00: 00:00 oral route 00 :00 every 12 hours with food PRN pain naproxen 2020-0 2021- No take 1 [facility] 500 mg 7-15 -14 tablet by [facility] tablet 00:00: 00:00 oral route 00 :00 every 12 hours with food PRN pain naproxen 2020-0 2021- No take 1 [facility] 500 mg 7-15 -14 tablet by [facility] tablet 00:00: 00:00 oral route 00 :00 every 12 hours with food PRN pain naproxen 2020-0 2021- No take 1 [facility] 500 mg 7-15 -14 tablet by [facility] tablet 00:00: 00:00 oral route 00 :00 every 12 hours with food PRN pain Viagra 25 2020-0 2020- No 1{table QD take 1 [facility] mg tablet 7-15 10-15 t} tablet by [facility] 00:00: 00:00 oral route 00 :00 every day as needed approximat flor 1 hour before sexual activity as needed metformin 2020-0 2020- No 1{table Q12H take 1 [facility] 500 mg 7-15 10-15 t} tablet by [facility] tablet 00:00: 00:00 oral route 00 :00 2 times every day with morning and evening meals lisinopril 2020-0 2020- No 1{table Q1D take 1 [facility] 20 mg 7-15 10-15 t} tablet by [facility] tablet 00:00: 00:00 oral route 00 :00 every day for blood pressure glimepiride 2020-0 2020- No take 1 [facility] 1 mg tablet 7-15 10-15 tablet by [facility] 00:00: 00:00 oral route 00 :00 every day in the morning with food for diabetes atorvastati 2020-2020- No 1{table Q1D take 1 [facility] 20 mg 7-15 10-15 t} tablet by [facility] tablet 00:00: 00:00 oral route 00 :00 every day for cholestero l aspirin 81 2020- No take 1 [facility] mg 7-15 10-15 tablet by [facility] tablet,wolfgang 00:00: 00:00 oral route any yed release 00 :00 every day remaining at bedtime refills for heart from previous scripts Viagra 25 2020-2020- No 1{table QD take 1 [facility] mg tablet 7-15 10-15 t} tablet by [facility] 00:00: 00:00 oral route 00 :00 every day as needed approximat flor 1 hour before sexual activity as needed metformin 2020- No 1{table Q12H take 1 [facility] 500 mg 7-15 10-15 t} tablet by [facility] tablet 00:00: 00:00 oral route 00 :00 2 times every day with morning and evening meals lisinopril 2020-2020- No 1{table Q1D take 1 [facility] 20 mg 7-15 10-15 t} tablet by [facility] tablet 00:00: 00:00 oral route 00 :00 every day for blood pressure glimepiride 2020- No take 1 [facility] 1 mg tablet 7-15 10-15 tablet by [facility] 00:00: 00:00 oral route 00 :00 every day in the morning with food for diabetes atorvastati 2020-2020- No 1{table Q1D take 1 [facility] 20 mg 7-15 10-15 t} tablet by [facility] tablet 00:00: 00:00 oral route 00 :00 every day for cholestero l aspirin 81 2020-2020- No take 1 [facility] mg 7-15 10-15 tablet by [facility] tablet,wolfgang 00:00: 00:00 oral route any yed release 00 :00 every day remaining at bedtime refills for heart from previous scripts aspirin 81 2020- No take 1 Please [facility] mg 7-15 10-15 tablet by [facility] tablet,[facility] 00:00: 00:00 oral route any yed release 00 :00 every day remaining at bedtime refills for heart from previous scripts Viagra 25 2020- No 1{table QD take 1 [facility] mg tablet 7-15 10-15 t} tablet by [facility] 00:00: 00:00 oral route 00 :00 every day as needed approximat flor 1 hour before sexual activity as needed metformin 2020- No 1{table Q12H take 1 [facility] 500 mg 7-15 10-15 t} tablet by [facility] tablet 00:00: 00:00 oral route 00 :00 2 times every day with morning and evening meals lisinopril 2020- No 1{table Q1D take 1 [facility] 20 mg 7-15 10-15 t} tablet by [facility] tablet 00:00: 00:00 oral route 00 :00 every day for blood pressure glimepiride 2020- No take 1 [facility] 1 mg tablet 7-15 10-15 tablet by [facility] 00:00: 00:00 oral route 00 :00 every day in the morning with food for diabetes atorvastati 2020- No 1{table Q1D take 1 [facility] 20 mg 7-15 10-15 t} tablet by [facility] tablet 00:00: 00:00 oral route 00 :00 every day for cholestero l Viagra 2020- No 1{table QD take 1 [facility] mg tablet 7-15 10-15 t} tablet by [facility] 00:00: 00:00 oral route 00 :00 every day as needed approximat flor 1 hour before sexual activity as needed metformin 2020- No 1{table Q12H take 1 [facility] 500 mg 7-15 10-15 t} tablet by [facility] tablet 00:00: 00:00 oral route 00 :00 2 times every day with morning and evening meals lisinopril 2020- No 1{table Q1D take 1 [facility] 20 mg 7-15 10-15 t} tablet by [facility] tablet 00:00: 00:00 oral route 00 :00 every day for blood pressure glimepiride 2020-2020- No take 1 [facility] 1 mg tablet 7-15 10-15 tablet by [facility] 00:00: 00:00 oral route 00 :00 every day in the morning with food for diabetes atorvastati 2020- No 1{table Q1D take 1 [facility] 20 mg 7-15 10-15 t} tablet by [facility] tablet 00:00: 00:00 oral route 00 :00 every day for cholestero l aspirin 81 2020- No take 1 Please [facility] mg 7-15 10-15 tablet by [facility] 00:00: 00:00 oral route any yed release 00 :00 every day remaining at bedtime refills for heart from previous scripts Viagra 25 2020- No 1{table QD take 1 [facility] mg tablet 7-15 10-15 t} tablet by [facility] 00:00: 00:00 oral route 00 :00 every day as needed approximat flor 1 hour before sexual activity as needed metformin 2020- No 1{table Q12H take 1 [facility] 500 mg 7-15 10-15 t} tablet by [facility] tablet 00:00: 00:00 oral route 00 :00 2 times every day with morning and evening meals lisinopril 2020- No 1{table Q1D take 1 [facility] 20 mg 7-15 10-15 t} tablet by [facility] tablet 00:00: 00:00 oral route 00 :00 every day for blood pressure glimepiride 2020- No take 1 [facility] 1 mg tablet 7-15 10-15 tablet by [facility] 00:00: 00:00 oral route 00 :00 every day in the morning with food for diabetes atorvastati 2020- No 1{table Q1D take 1 [facility] 20 mg 7-15 10-15 t} tablet by [facility] tablet 00:00: 00:00 oral route 00 :00 every day for cholestero l aspirin 81 2020- No take 1 Please [facility] mg 7-15 10-15 tablet by [facility] tablet,[facility] 00:00: 00:00 oral route any yed release 00 :00 every day remaining at bedtime refills for heart from previous scripts Viagra 2020- No 1{table QD take 1 [facility] mg tablet 7-15 10-15 t} tablet by [facility] 00:00: 00:00 oral route 00 :00 every day as needed approximat flor 1 hour before sexual activity as needed metformin 2020- No 1{table Q12H take 1 [facility] 500 mg 7-15 10-15 t} tablet by [facility] tablet 00:00: 00:00 oral route 00 :00 2 times every day with morning and evening meals lisinopril 2020- No 1{table Q1D take 1 [facility] 20 mg 7-15 10-15 t} tablet by [facility] tablet 00:00: 00:00 oral route 00 :00 every day for blood pressure glimepiride 2020- No take 1 [facility] 1 mg tablet 7-15 10-15 tablet by [facility] 00:00: 00:00 oral route 00 :00 every day in the morning with food for diabetes atorvastati 2020- No 1{table Q1D take 1 [facility] 20 mg 7-15 10-15 t} tablet by [facility] tablet 00:00: 00:00 oral route 00 :00 every day for cholestero l aspirin 81 2020- No take 1 Please [facility] mg 7-15 10-15 tablet by [facility] tablet,[facility] 00:00: 00:00 oral route any yed release 00 :00 every day remaining at bedtime refills for heart from previous scripts Viagra 25 2020- No 1{table QD take 1 [facility] mg tablet 7-15 10-15 t} tablet by [facility] 00:00: 00:00 oral route 00 :00 every day as needed approximat flor 1 hour before sexual activity as needed metformin 2020- No 1{table Q12H take 1 [facility] 500 mg 7-15 10-15 t} tablet by [facility] tablet 00:00: 00:00 oral route 00 :00 2 times every day with morning and evening meals lisinopril 2020- No 1{table Q1D take 1 [facility] 20 mg 7-15 10-15 t} tablet by [facility] tablet 00:00: 00:00 oral route 00 :00 every day for blood pressure glimepiride 2020- No take 1 [facility] 1 mg tablet 7-15 10-15 tablet by [facility] 00:00: 00:00 oral route 00 :00 every day in the morning with food for diabetes atorvastati 2020- No 1{table Q1D take 1 [facility] 20 mg 7-15 10-15 t} tablet by [facility] tablet 00:00: 00:00 oral route 00 :00 every day for cholestero l aspirin 81 2020- No take 1 Please [facility] mg 7-15 10-15 tablet by [facility] 00:00: 00:00 oral route any yed release 00 :00 every day remaining at bedtime refills for heart from previous scripts Viagra 25 2020- No 1{table QD take 1 [facility] mg tablet 7-15 10-15 t} tablet by [facility] 00:00: 00:00 oral route 00 :00 every day as needed approximat flor 1 hour before sexual activity as needed metformin 2020- No 1{table Q12H take 1 [facility] 500 mg 7-15 10-15 t} tablet by [facility] tablet 00:00: 00:00 oral route 00 :00 2 times every day with morning and evening meals lisinopril 2020- No 1{table Q1D take 1 [facility] 20 mg 7-15 10-15 t} tablet by [facility] tablet 00:00: 00:00 oral route 00 :00 every day for blood pressure glimepiride 2020- No take 1 [facility] 1 mg tablet 7-15 10-15 tablet by [facility] 00:00: 00:00 oral route 00 :00 every day in the morning with food for diabetes atorvastati 2020- No 1{table Q1D take 1 [facility] 20 mg 7-15 10-15 t} tablet by [facility] tablet 00:00: 00:00 oral route 00 :00 every day for cholestero l aspirin 81 2020- No take 1 Please [facility] mg 7-15 10-15 tablet by [facility] tablet,[facility] 00:00: 00:00 oral route any yed release 00 :00 every day remaining at bedtime refills for heart from previous scripts Viagra 2020- No 1{table QD take 1 [facility] mg tablet 7-15 10-15 t} tablet by [facility] 00:00: 00:00 oral route 00 :00 every day as needed approximat flor 1 hour before sexual activity as needed metformin 2020- No 1{table Q12H take 1 [facility] 500 mg 7-15 10-15 t} tablet by [facility] tablet 00:00: 00:00 oral route 00 :00 2 times every day with morning and evening meals lisinopril 2020- No 1{table Q1D take 1 [facility] 20 mg 7-15 10-15 t} tablet by [facility] tablet 00:00: 00:00 oral route 00 :00 every day for blood pressure glimepiride 2020- No take 1 [facility] 1 mg tablet 7-15 10-15 tablet by [facility] 00:00: 00:00 oral route 00 :00 every day in the morning with food for diabetes atorvastati 2020- No 1{table Q1D take 1 [facility] 20 mg 7-15 10-15 t} tablet by [facility] tablet 00:00: 00:00 oral route 00 :00 every day for cholestero l aspirin 81 2020- No take 1 Please [facility] mg 7-15 10-15 tablet by [facility] tablet,[facility] 00:00: 00:00 oral route any yed release 00 :00 every day remaining at bedtime refills for heart from previous scripts Viagra 2020- No 1{table QD take 1 [facility] mg tablet 7-15 10-15 t} tablet by [facility] 00:00: 00:00 oral route 00 :00 every day as needed approximat flor 1 hour before sexual activity as needed metformin 2020- No 1{table Q12H take 1 [facility] 500 mg 7-15 10-15 t} tablet by [facility] tablet 00:00: 00:00 oral route 00 :00 2 times every day with morning and evening meals lisinopril 2020- No 1{table Q1D take 1 [facility] 20 mg 7-15 10-15 t} tablet by [facility] tablet 00:00: 00:00 oral route 00 :00 every day for blood pressure glimepiride 2020- No take 1 [facility] 1 mg tablet 7-15 10-15 tablet by [facility] 00:00: 00:00 oral route 00 :00 every day in the morning with food for diabetes atorvastati 2020- No 1{table Q1D take 1 [facility] 20 mg 7-15 10-15 t} tablet by [facility] tablet 00:00: 00:00 oral route 00 :00 every day for cholestero l aspirin 81 2020- No take 1 Please [facility] mg 7-15 10-15 tablet by [facility] tablet,[facility] 00:00: 00:00 oral route any yed release 00 :00 every day remaining at bedtime refills for heart from previous scripts Viagra 25 2020- No 1{table QD take 1 [facility] mg tablet 7-15 10-15 t} tablet by [facility] 00:00: 00:00 oral route 00 :00 every day as needed approximat flor 1 hour before sexual activity as needed metformin 2020- No 1{table Q12H take 1 [facility] 500 mg 7-15 10-15 t} tablet by [facility] tablet 00:00: 00:00 oral route 00 :00 2 times every day with morning and evening meals lisinopril 2020- No 1{table Q1D take 1 [facility] 20 mg 7-15 10-15 t} tablet by [facility] tablet 00:00: 00:00 oral route 00 :00 every day for blood pressure glimepiride 2020- No take 1 [facility] 1 mg tablet 7-15 10-15 tablet by [facility] 00:00: 00:00 oral route 00 :00 every day in the morning with food for diabetes atorvastati 2020- No 1{table Q1D take 1 [facility] 20 mg 7-15 10-15 t} tablet by [facility] tablet 00:00: 00:00 oral route 00 :00 every day for cholestero l aspirin 81 2020- No take 1 Please [facility] mg 7-15 10-15 tablet by [facility] tablet,[facility] 00:00: 00:00 oral route any yed release 00 :00 every day remaining at bedtime refills for heart from previous scripts Viagra 2020- No 1{table QD take 1 [facility] mg tablet 7-15 10-15 t} tablet by [facility] 00:00: 00:00 oral route 00 :00 every day as needed approximat flor 1 hour before sexual activity as needed metformin 2020- No 1{table Q12H take 1 [facility] 500 mg 7-15 10-15 t} tablet by [facility] tablet 00:00: 00:00 oral route 00 :00 2 times every day with morning and evening meals lisinopril 2020- No 1{table Q1D take 1 [facility] 20 mg 7-15 10-15 t} tablet by [facility] tablet 00:00: 00:00 oral route 00 :00 every day for blood pressure glimepiride 2020- No take 1 [facility] 1 mg tablet 7-15 10-15 tablet by [facility] 00:00: 00:00 oral route 00 :00 every day in the morning with food for diabetes atorvastati 2020- No 1{table Q1D take 1 [facility] 20 mg 7-15 10-15 t} tablet by [facility] tablet 00:00: 00:00 oral route 00 :00 every day for cholestero l aspirin 81 2020- No take 1 Please [facility] mg 7-15 10-15 tablet by [facility] tablet,[facility] 00:00: 00:00 oral route any yed release 00 :00 every day remaining at bedtime refills for heart from previous scripts Viagra 25 2020- No 1{table QD take 1 [facility] mg tablet 7-15 10-15 t} tablet by [facility] 00:00: 00:00 oral route 00 :00 every day as needed approximat flor 1 hour before sexual activity as needed metformin 2020- No 1{table Q12H take 1 [facility] 500 mg 7-15 10-15 t} tablet by [facility] tablet 00:00: 00:00 oral route 00 :00 2 times every day with morning and evening meals lisinopril 2020- No 1{table Q1D take 1 [facility] 20 mg 7-15 10-15 t} tablet by [facility] tablet 00:00: 00:00 oral route 00 :00 every day for blood pressure glimepiride 2020- No take 1 [facility] 1 mg tablet 7-15 10-15 tablet by [facility] 00:00: 00:00 oral route 00 :00 every day in the morning with food for diabetes atorvastati 2020- No 1{table Q1D take 1 [facility] 20 mg 7-15 10-15 t} tablet by [facility] tablet 00:00: 00:00 oral route 00 :00 every day for cholestero l aspirin 81 2020- No take 1 Please [facility] mg 7-15 10-15 tablet by [facility] tablet,[facility] 00:00: 00:00 oral route any yed release 00 :00 every day remaining at bedtime refills for heart from previous scripts Viagra 25 2020- No 1{table QD take 1 [facility] mg tablet 7-15 10-15 t} tablet by [facility] 00:00: 00:00 oral route 00 :00 every day as needed approximat flor 1 hour before sexual activity as needed metformin 2020- No 1{table Q12H take 1 [facility] 500 mg 7-15 10-15 t} tablet by [facility] tablet 00:00: 00:00 oral route 00 :00 2 times every day with morning and evening meals lisinopril 2020- No 1{table Q1D take 1 [facility] 20 mg 7-15 10-15 t} tablet by [facility] tablet 00:00: 00:00 oral route 00 :00 every day for blood pressure glimepiride 2020-2020- No take 1 [facility] 1 mg tablet 7-15 10-15 tablet by [facility] 00:00: 00:00 oral route 00 :00 every day in the morning with food for diabetes atorvastati 2020- No 1{table Q1D take 1 [facility] 20 mg 7-15 10-15 t} tablet by [facility] tablet 00:00: 00:00 oral route 00 :00 every day for cholestero l aspirin 81 2020- No take 1 Please [facility] mg 7-15 10-15 tablet by [facility] tablet,[facility] 00:00: 00:00 oral route any yed release 00 :00 every day remaining at bedtime refills for heart from previous scripts Viagra 25 2020- No 1{table QD take 1 [facility] mg tablet 7-15 10-15 t} tablet by [facility] 00:00: 00:00 oral route 00 :00 every day as needed approximat flor 1 hour before sexual activity as needed metformin 2020- No 1{table Q12H take 1 [facility] 500 mg 7-15 10-15 t} tablet by [facility] tablet 00:00: 00:00 oral route 00 :00 2 times every day with morning and evening meals lisinopril 2020- No 1{table Q1D take 1 [facility] 20 mg 7-15 10-15 t} tablet by [facility] tablet 00:00: 00:00 oral route 00 :00 every day for blood pressure glimepiride 2020- No take 1 [facility] 1 mg tablet 7-15 10-15 tablet by [facility] 00:00: 00:00 oral route 00 :00 every day in the morning with food for diabetes atorvastati 2020-2020- No 1{table Q1D take 1 [facility] 20 mg 7-15 10-15 t} tablet by [facility] tablet 00:00: 00:00 oral route 00 :00 every day for cholestero l aspirin 81 2020- No take 1 Please [facility] mg 7-15 10-15 tablet by [facility] tablet,[facility] 00:00: 00:00 oral route any yed release 00 :00 every day remaining at bedtime refills for heart from previous scripts Viagra 25 2020- No 1{table QD take 1 [facility] mg tablet 7-15 10-15 t} tablet by [facility] 00:00: 00:00 oral route 00 :00 every day as needed approximat flor 1 hour before sexual activity as needed metformin 2020- No 1{table Q12H take 1 [facility] 500 mg 7-15 10-15 t} tablet by [facility] tablet 00:00: 00:00 oral route 00 :00 2 times every day with morning and evening meals lisinopril 2020- No 1{table Q1D take 1 [facility] 20 mg 7-15 10-15 t} tablet by [facility] tablet 00:00: 00:00 oral route 00 :00 every day for blood pressure glimepiride 2020- No take 1 [facility] 1 mg tablet 7-15 10-15 tablet by [facility] 00:00: 00:00 oral route 00 :00 every day in the morning with food for diabetes atorvastati 2020- No 1{table Q1D take 1 [facility] 20 mg 7-15 10-15 t} tablet by [facility] tablet 00:00: 00:00 oral route 00 :00 every day for cholestero l aspirin 81 2020- No take 1 Please [facility] mg 7-15 10-15 tablet by [facility] tablet,[facility] 00:00: 00:00 oral route any yed release 00 :00 every day remaining at bedtime refills for heart from previous scripts Viagra 25 2020- No 1{table QD take 1 [facility] mg tablet 7-15 10-15 t} tablet by [facility] 00:00: 00:00 oral route 00 :00 every day as needed approximat flor 1 hour before sexual activity as needed metformin 2020- No 1{table Q12H take 1 [facility] 500 mg 7-15 10-15 t} tablet by [facility] tablet 00:00: 00:00 oral route 00 :00 2 times every day with morning and evening meals lisinopril 2020- No 1{table Q1D take 1 [facility] 20 mg 7-15 10-15 t} tablet by [facility] tablet 00:00: 00:00 oral route 00 :00 every day for blood pressure glimepiride 2020- No take 1 [facility] 1 mg tablet 7-15 10-15 tablet by [facility] 00:00: 00:00 oral route 00 :00 every day in the morning with food for diabetes atorvastati 2020- No 1{table Q1D take 1 [facility] 20 mg 7-15 10-15 t} tablet by [facility] tablet 00:00: 00:00 oral route 00 :00 every day for cholestero l aspirin 81 2020- No take 1 Please [facility] mg 7-15 10-15 tablet by [facility] tablet,[facility] 00:00: 00:00 oral route any yed release 00 :00 every day remaining at bedtime refills for heart from previous scripts Viagra 25 2020- No 1{table QD take 1 [facility] mg tablet 7-15 10-15 t} tablet by [facility] 00:00: 00:00 oral route 00 :00 every day as needed approximat flor 1 hour before sexual activity as needed metformin 2020- No 1{table Q12H take 1 [facility] 500 mg 7-15 10-15 t} tablet by [facility] tablet 00:00: 00:00 oral route 00 :00 2 times every day with morning and evening meals lisinopril 2020- No 1{table Q1D take 1 [facility] 20 mg 7-15 10-15 t} tablet by [facility] tablet 00:00: 00:00 oral route 00 :00 every day for blood pressure glimepiride 2020- No take 1 [facility] 1 mg tablet 7-15 10-15 tablet by [facility] 00:00: 00:00 oral route 00 :00 every day in the morning with food for diabetes atorvastati 2020- No 1{table Q1D take 1 [facility] 20 mg 7-15 10-15 t} tablet by [facility] tablet 00:00: 00:00 oral route 00 :00 every day for cholestero l aspirin 81 2020- No take 1 Please [facility] mg 7-15 10-15 tablet by [facility] tablet,[facility] 00:00: 00:00 oral route any yed release 00 :00 every day remaining at bedtime refills for heart from previous scripts Viagra 25 2020- No 1{table QD take 1 [facility] mg tablet 7-15 10-15 t} tablet by [facility] 00:00: 00:00 oral route 00 :00 every day as needed approximat flor 1 hour before sexual activity as needed metformin 2020- No 1{table Q12H take 1 [facility] 500 mg 7-15 10-15 t} tablet by [facility] tablet 00:00: 00:00 oral route 00 :00 2 times every day with morning and evening meals lisinopril 2020- No 1{table Q1D take 1 [facility] 20 mg 7-15 10-15 t} tablet by [facility] tablet 00:00: 00:00 oral route 00 :00 every day for blood pressure glimepiride 2020- No take 1 [facility] 1 mg tablet 7-15 10-15 tablet by [facility] 00:00: 00:00 oral route 00 :00 every day in the morning with food for diabetes atorvastati 2020- No 1{table Q1D take 1 [facility] 20 mg 7-15 10-15 t} tablet by [facility] tablet 00:00: 00:00 oral route 00 :00 every day for cholestero l aspirin 81 2020- No take 1 Please [facility] mg 7-15 10-15 tablet by [facility] tablet,[facility] 00:00: 00:00 oral route any yed release 00 :00 every day remaining at bedtime refills for heart from previous scripts erythromyci 2020- No .5[in_u 0.5 Inch, [facility] n 4-20 04-20 s] Left Eye, ity of (ILOTYCIN) 01:15: 00:38 ONCE, 1 [place] [facility] 5 mg/gram 00 :00 dose, Mon Medic al (0.5 %) 11/28/20 at [facility] 2015, STEFANIE ointment 0.5 Inch tetracaine 2020- No 2[drp] 2 Drop, U [facility] (PONTOCAINE 11-29 Left Eye, it y of ) 0.5 % 00:00: 23:00 ONCE, 1 [place] [facility] 00 :00 dose, Mon Medi jose roberto drops 2 11/28/20 at [place] Drop 1900, STEFANIE erythromyci 2020- No [id number] .5[in_u Place 0.5 [facility] n 5 mg/gram 11-28 [id number] s] Inches in ity of (0.5 %) 00:00: 04:59 left eye 2 [facility] 00 :00 (two) Medical ointment times [place] daily for 5 days. Continue until you follow up with eye doctor. ketorolac 2020- No [id number] 1[drp] Place 1 [facility] (ACULAR) 11-28 [id number] Drop in ity o f 0.5 % 00:00: 04:59 left eye 4 [place] [facility] 00 :00 (four) Medical solution times [place] daily for 5 days. atorvastati 2020- No 1{table Q1D take 1 [facility] 20 mg -15 -15 t} tablet by [facility] tablet 00:00: 00:00 oral route 00 :00 every day for cholestero l metformin 2020- No 1{table Q12H take 1 [facility] 500 mg -23 02-15 t} tablet by [facility] tablet 00:00: 00:00 oral route 00 :00 2 times every day with morning and evening meals lisinopril 2020- No 1{table Q1D take 1 [facility] 20 mg -15 -15 t} tablet by [facility] tablet 00:00: 00:00 oral route 00 :00 every day for blood pressure glimepiride 2020- No take 1 [facility] 1 mg tablet 11-24-15 tablet by [facility] 00:00: 00:00 oral route 00 :00 every day in the morning with food for diabetes aspirin 81 2020- No take 1 Please [facility] mg -15 -15 tablet by [facility] tablet,[facility] 00:00: 00:00 oral route any yed release 00 :00 every day remaining at bedtime refills for heart from previous scripts Viagra 2020- No 1{table QD take 1 [facility] mg tablet 4-15 -15 t} tablet by [facility] 00:00: 00:00 oral route 00 :00 every day as needed approximat flor 1 hour before sexual activity as needed atorvastati 2020- No 1{table Q1D take 1 [facility] 20 mg 4-15 -15 t} tablet by [facility] tablet 00:00: 00:00 oral route 00 :00 every day for cholestero l metformin 2020- No 1{table Q12H take 1 [facility] 500 mg -15 -15 t} tablet by [facility] tablet 00:00: 00:00 oral route 00 :00 2 times every day with morning and evening meals lisinopril 2020- No 1{table Q1D take 1 [facility] 20 mg -15 -15 t} tablet by [facility] tablet 00:00: 00:00 oral route 00 :00 every day for blood pressure glimepiride 2020- No take 1 [facility] 1 mg tablet 11-24-15 tablet by [facility] 00:00: 00:00 oral route 00 :00 every day in the morning with food for diabetes aspirin 81 2020- No take 1 Please [facility] mg -15 -15 tablet by [facility] tablet,[facility] 00:00: 00:00 oral route any yed release 00 :00 every day remaining at bedtime refills for heart from previous scripts Viagra 2020- No 1{table QD take 1 [facility] mg tablet -15 -15 t} tablet by [facility] 00:00: 00:00 oral route 00 :00 every day as needed approximat flor 1 hour before sexual activity as needed atorvastati 2020- No 1{table Q1D take 1 [facility] 20 mg 4-15 07-15 t} tablet by [facility] tablet 00:00: 00:00 oral route 00 :00 every day for cholestero l metformin 2020- No 1{table Q12H take 1 [facility] 500 mg 4-15 07-15 t} tablet by [facility] tablet 00:00: 00:00 oral route 00 :00 2 times every day with morning and evening meals lisinopril 2020- No 1{table Q1D take 1 [facility] 20 mg 4-15 07-15 t} tablet by [facility] tablet 00:00: 00:00 oral route 00 :00 every day for blood pressure glimepiride 2020- No take 1 [facility] 1 mg tablet 4-15 07-15 tablet by [facility] 00:00: 00:00 oral route 00 :00 every day in the morning with food for diabetes aspirin 81 2020- No take 1 Please [facility] mg 4-15 07-15 tablet by [facility] tablet,[facility] 00:00: 00:00 oral route any yed release 00 :00 every day remaining at bedtime refills for heart from previous scripts Viagra 25 2020- No 1{table QD take 1 [facility] mg tablet 4-15 07-15 t} tablet by [facility] 00:00: 00:00 oral route 00 :00 every day as needed approximat flor 1 hour before sexual activity as needed atorvastati 2020- No 1{table Q1D take 1 [facility] 20 mg 4-15 07-15 t} tablet by [facility] tablet 00:00: 00:00 oral route 00 :00 every day for cholestero l metformin 2020- No 1{table Q12H take 1 [facility] 500 mg 4-15 07-15 t} tablet by [facility] tablet 00:00: 00:00 oral route 00 :00 2 times every day with morning and evening meals lisinopril 2020- No 1{table Q1D take 1 [facility] 20 mg 4-15 07-15 t} tablet by [facility] tablet 00:00: 00:00 oral route 00 :00 every day for blood pressure glimepiride 2020- No take 1 [facility] 1 mg tablet 4-15 07-15 tablet by [facility] 00:00: 00:00 oral route 00 :00 every day in the morning with food for diabetes aspirin 81 2020-2020- No take 1 Please [facility] mg -15 -15 tablet by [facility] tablet,[facility] 00:00: 00:00 oral route any yed release 00 :00 every day remaining at bedtime refills for heart from previous scripts Viagra 25 2020- No 1{table QD take 1 [facility] mg tablet -15 -15 t} tablet by [facility] 00:00: 00:00 oral route 00 :00 every day as needed approximat flor 1 hour before sexual activity as needed Viagra 25 2020- No 1{table QD take 1 [facility] mg tablet -15 -15 t} tablet by [facility] 00:00: 00:00 oral route 00 :00 every day as needed approximat flor 1 hour before sexual activity as needed glimepiride 2020- No take 1 [facility] 1 mg tablet 11-24-15 tablet by [facility] 00:00: 00:00 oral route 00 :00 every day in the morning with food for diabetes aspirin 81 2020-2020- No take 1 Please [facility] mg -15 -15 tablet by [facility] tablet,[facility] 00:00: 00:00 oral route any yed release 00 :00 every day remaining at bedtime refills for heart from previous scripts metformin 2020- No 1{table Q12H take 1 [facility] 500 mg -15 -15 t} tablet by [facility] tablet 00:00: 00:00 oral route 00 :00 2 times every day with morning and evening meals lisinopril 2020- No 1{table Q1D take 1 [facility] 20 mg 4-15 -15 t} tablet by [facility] tablet 00:00: 00:00 oral route 00 :00 every day for blood pressure atorvastati 2020- No 1{table Q1D take 1 [facility] 20 mg 4-15 07-15 t} tablet by [facility] tablet 00:00: 00:00 oral route 00 :00 every day for cholestero l atorvastati 2020- No 1{table Q1D take 1 [facility] 20 mg 4-15 07-15 t} tablet by [facility] tablet 00:00: 00:00 oral route 00 :00 every day for cholestero l metformin 2020- No 1{table Q12H take 1 [facility] 500 mg 4-15 07-15 t} tablet by [facility] tablet 00:00: 00:00 oral route 00 :00 2 times every day with morning and evening meals lisinopril 2020- No 1{table Q1D take 1 [facility] 20 mg 4-15 07-15 t} tablet by [facility] tablet 00:00: 00:00 oral route 00 :00 every day for blood pressure glimepiride 2020- No take 1 [facility] 1 mg tablet 4-15 -15 tablet by [facility] 00:00: 00:00 oral route 00 :00 every day in the morning with food for diabetes aspirin 81 2020- No take 1 Please [facility] mg 4-15 07-15 tablet by [facility] 00:00: 00:00 oral route any yed release 00 :00 every day remaining at bedtime refills for heart from previous scripts Viagra 25 2020- No 1{table QD take 1 [facility] mg tablet 4-15 07-15 t} tablet by [facility] 00:00: 00:00 oral route 00 :00 every day as needed approximat flor 1 hour before sexual activity as needed atorvastati 2020- No 1{table Q1D take 1 [facility] 20 mg 4-15 07-15 t} tablet by [facility] tablet 00:00: 00:00 oral route 00 :00 every day for cholestero l metformin 2020- No 1{table Q12H take 1 [facility] 500 mg 4-15 07-15 t} tablet by [facility] tablet 00:00: 00:00 oral route 00 :00 2 times every day with morning and evening meals lisinopril 2020- No 1{table Q1D take 1 [facility] 20 mg 4-15 07-15 t} tablet by [facility] tablet 00:00: 00:00 oral route 00 :00 every day for blood pressure glimepiride 2020- No take 1 [facility] 1 mg tablet -23 02-15 tablet by [facility] 00:00: 00:00 oral route 00 :00 every day in the morning with food for diabetes aspirin 81 2020- No take 1 Please [facility] mg 4-15 -15 tablet by [facility] tablet,[facility] 00:00: 00:00 oral route any yed release 00 :00 every day remaining at bedtime refills for heart from previous scripts Viagra 2020- No 1{table QD take 1 [facility] mg tablet -15 -15 t} tablet by [facility] 00:00: 00:00 oral route 00 :00 every day as needed approximat flor 1 hour before sexual activity as needed atorvastati 2020- No 1{table Q1D take 1 [facility] 20 mg -23 02-15 t} tablet by [facility] tablet 00:00: 00:00 oral route 00 :00 every day for cholestero l metformin 2020- No 1{table Q12H take 1 [facility] 500 mg -15 -15 t} tablet by [facility] tablet 00:00: 00:00 oral route 00 :00 2 times every day with morning and evening meals lisinopril 2020- No 1{table Q1D take 1 [facility] 20 mg -15 -15 t} tablet by [facility] tablet 00:00: 00:00 oral route 00 :00 every day for blood pressure glimepiride 2020- No take 1 [facility] 1 mg tablet -23 02-15 tablet by [facility] 00:00: 00:00 oral route 00 :00 every day in the morning with food for diabetes aspirin 81 2020- No take 1 Please [facility] mg 4-15 -15 tablet by [facility] tablet,[facility] 00:00: 00:00 oral route any yed release 00 :00 every day remaining at bedtime refills for heart from previous scripts Viagra 2020- No 1{table QD take 1 [facility] mg tablet 4-15 07-15 t} tablet by [facility] 00:00: 00:00 oral route 00 :00 every day as needed approximat flor 1 hour before sexual activity as needed atorvastati 2020-2020- No 1{table Q1D take 1 [facility] 20 mg 4-15 07-15 t} tablet by [facility] tablet 00:00: 00:00 oral route 00 :00 every day for cholestero l metformin 2020-2020- No 1{table Q12H take 1 [facility] 500 mg 4-15 07-15 t} tablet by [facility] tablet 00:00: 00:00 oral route 00 :00 2 times every day with morning and evening meals lisinopril 2020-2020- No 1{table Q1D take 1 [facility] 20 mg 4-15 07-15 t} tablet by [facility] tablet 00:00: 00:00 oral route 00 :00 every day for blood pressure glimepiride 2020- No take 1 [facility] 1 mg tablet -15 -15 tablet by [facility] 00:00: 00:00 oral route 00 :00 every day in the morning with food for diabetes aspirin 81 2020- No take 1 Please [facility] mg 4-15 07-15 tablet by [facility] 00:00: 00:00 oral route any yed release 00 :00 every day remaining at bedtime refills for heart from previous scripts Viagra 25 2020- No 1{table QD take 1 [facility] mg tablet 4-15 07-15 t} tablet by [facility] 00:00: 00:00 oral route 00 :00 every day as needed approximat flor 1 hour before sexual activity as needed atorvastati 2020-2020- No 1{table Q1D take 1 [facility] 20 mg 4-15 07-15 t} tablet by [facility] tablet 00:00: 00:00 oral route 00 :00 every day for cholestero l metformin 2020-2020- No 1{table Q12H take 1 [facility] 500 mg 4-15 07-15 t} tablet by [facility] tablet 00:00: 00:00 oral route 00 :00 2 times every day with morning and evening meals lisinopril 2020- No 1{table Q1D take 1 [facility] 20 mg 4-15 07-15 t} tablet by [facility] tablet 00:00: 00:00 oral route 00 :00 every day for blood pressure glimepiride 2020- No take 1 [facility] 1 mg tablet 4-15 07-15 tablet by [facility] 00:00: 00:00 oral route 00 :00 every day in the morning with food for diabetes aspirin 81 2020- No take 1 Please [facility] mg 4-15 07-15 tablet by [facility] tablet,[facility] 00:00: 00:00 oral route any yed release 00 :00 every day remaining at bedtime refills for heart from previous scripts Viagra 25 2020- No 1{table QD take 1 [facility] mg tablet 4-15 07-15 t} tablet by [facility] 00:00: 00:00 oral route 00 :00 every day as needed approximat flor 1 hour before sexual activity as needed atorvastati 2020- No 1{table Q1D take 1 [facility] 20 mg 4-15 07-15 t} tablet by [facility] tablet 00:00: 00:00 oral route 00 :00 every day for cholestero l metformin 2020- No 1{table Q12H take 1 [facility] 500 mg 4-15 07-15 t} tablet by [facility] tablet 00:00: 00:00 oral route 00 :00 2 times every day with morning and evening meals lisinopril 2020- No 1{table Q1D take 1 [facility] 20 mg 4-15 07-15 t} tablet by [facility] tablet 00:00: 00:00 oral route 00 :00 every day for blood pressure glimepiride 2020- No take 1 [facility] 1 mg tablet 4-15 07-15 tablet by [facility] 00:00: 00:00 oral route 00 :00 every day in the morning with food for diabetes aspirin 81 2020-2020- No take 1 Please [facility] mg 4-15 07-15 tablet by [facility] tablet,[facility] 00:00: 00:00 oral route any yed release 00 :00 every day remaining at bedtime refills for heart from previous scripts Viagra 25 2020- No 1{table QD take 1 [facility] mg tablet 4-15 07-15 t} tablet by [facility] 00:00: 00:00 oral route 00 :00 every day as needed approximat flor 1 hour before sexual activity as needed atorvastati 2020- No 1{table Q1D take 1 [facility] 20 mg 4-15 07-15 t} tablet by [facility] tablet 00:00: 00:00 oral route 00 :00 every day for cholestero l metformin 2020- No 1{table Q12H take 1 [facility] 500 mg 4-15 07-15 t} tablet by [facility] tablet 00:00: 00:00 oral route 00 :00 2 times every day with morning and evening meals lisinopril 2020- No 1{table Q1D take 1 [facility] 20 mg 4-15 07-15 t} tablet by [facility] tablet 00:00: 00:00 oral route 00 :00 every day for blood pressure glimepiride 2020- No take 1 [facility] 1 mg tablet -23 02-15 tablet by [facility] 00:00: 00:00 oral route 00 :00 every day in the morning with food for diabetes aspirin 81 2020- No take 1 Please [facility] mg 4-15 07-15 tablet by [facility] tablet,[facility] 00:00: 00:00 oral route any yed release 00 :00 every day remaining at bedtime refills for heart from previous scripts Viagra 25 2020- No 1{table QD take 1 [facility] mg tablet 4-15 07-15 t} tablet by [facility] 00:00: 00:00 oral route 00 :00 every day as needed approximat flor 1 hour before sexual activity as needed atorvastati 2020- No 1{table Q1D take 1 [facility] 20 mg 4-15 07-15 t} tablet by [facility] tablet 00:00: 00:00 oral route 00 :00 every day for cholestero l metformin 2020- No 1{table Q12H take 1 [facility] 500 mg 4-15 07-15 t} tablet by [facility] tablet 00:00: 00:00 oral route 00 :00 2 times every day with morning and evening meals lisinopril 2020-2020- No 1{table Q1D take 1 [facility] 20 mg 4-15 07-15 t} tablet by [facility] tablet 00:00: 00:00 oral route 00 :00 every day for blood pressure glimepiride 2020- No take 1 [facility] 1 mg tablet 4-15 07-15 tablet by [facility] 00:00: 00:00 oral route 00 :00 every day in the morning with food for diabetes aspirin 81 2020- No take 1 Please [facility] mg 4-15 07-15 tablet by [facility] 00:00: 00:00 oral route any yed release 00 :00 every day remaining at bedtime refills for heart from previous scripts Viagra 25 2020- No 1{table QD take 1 [facility] mg tablet 4-15 07-15 t} tablet by [facility] 00:00: 00:00 oral route 00 :00 every day as needed approximat flor 1 hour before sexual activity as needed atorvastati 2020-2020- No 1{table Q1D take 1 [facility] 20 mg 4-15 07-15 t} tablet by [facility] tablet 00:00: 00:00 oral route 00 :00 every day for cholestero l metformin 2020- No 1{table Q12H take 1 [facility] 500 mg 4-15 07-15 t} tablet by [facility] tablet 00:00: 00:00 oral route 00 :00 2 times every day with morning and evening meals lisinopril 2020-2020- No 1{table Q1D take 1 [facility] 20 mg 4-15 07-15 t} tablet by [facility] tablet 00:00: 00:00 oral route 00 :00 every day for blood pressure glimepiride 2020- No take 1 [facility] 1 mg tablet 4-15 07-15 tablet by [facility] 00:00: 00:00 oral route 00 :00 every day in the morning with food for diabetes aspirin 81 2020- No take 1 Please [facility] mg 4-15 07-15 tablet by [facility] tablet,[facility] 00:00: 00:00 oral route any yed release 00 :00 every day remaining at bedtime refills for heart from previous scripts Viagra 2020- No 1{table QD take 1 [facility] mg tablet 4-15 -15 t} tablet by [facility] 00:00: 00:00 oral route 00 :00 every day as needed approximat flor 1 hour before sexual activity as needed atorvastati 2020- No 1{table Q1D take 1 [facility] 20 mg 4-15 -15 t} tablet by [facility] tablet 00:00: 00:00 oral route 00 :00 every day for cholestero l metformin 2020- No 1{table Q12H take 1 [facility] 500 mg 4-15 -15 t} tablet by [facility] tablet 00:00: 00:00 oral route 00 :00 2 times every day with morning and evening meals lisinopril 2020- No 1{table Q1D take 1 [facility] 20 mg 4-15 07-15 t} tablet by [facility] tablet 00:00: 00:00 oral route 00 :00 every day for blood pressure glimepiride 2020- No take 1 [facility] 1 mg tablet -15 -15 tablet by [facility] 00:00: 00:00 oral route 00 :00 every day in the morning with food for diabetes aspirin 81 2020- No take 1 Please [facility] mg 4-15 07-15 tablet by [facility] tablet,[facility] 00:00: 00:00 oral route any yed release 00 :00 every day remaining at bedtime refills for heart from previous scripts Viagra 2020- No 1{table QD take 1 [facility] mg tablet 4-15 07-15 t} tablet by [facility] 00:00: 00:00 oral route 00 :00 every day as needed approximat flor 1 hour before sexual activity as needed atorvastati 2020- No 1{table Q1D take 1 [facility] 20 mg 4-15 07-15 t} tablet by [facility] tablet 00:00: 00:00 oral route 00 :00 every day for cholestero l metformin 2020- No 1{table Q12H take 1 [facility] 500 mg 4-15 07-15 t} tablet by [facility] tablet 00:00: 00:00 oral route 00 :00 2 times every day with morning and evening meals lisinopril 2020- No 1{table Q1D take 1 [facility] 20 mg 4-15 07-15 t} tablet by [facility] tablet 00:00: 00:00 oral route 00 :00 every day for blood pressure glimepiride 2020- No take 1 [facility] 1 mg tablet -15 -15 tablet by [facility] 00:00: 00:00 oral route 00 :00 every day in the morning with food for diabetes aspirin 81 2020- No take 1 Please [facility] mg 4-15 07-15 tablet by [facility] 00:00: 00:00 oral route any yed release 00 :00 every day remaining at bedtime refills for heart from previous scripts Viagra 25 2020- No 1{table QD take 1 [facility] mg tablet 4-15 07-15 t} tablet by [facility] 00:00: 00:00 oral route 00 :00 every day as needed approximat flor 1 hour before sexual activity as needed atorvastati 2020- No 1{table Q1D take 1 [facility] 20 mg 4-15 07-15 t} tablet by [facility] tablet 00:00: 00:00 oral route 00 :00 every day for cholestero l metformin 2020- No 1{table Q12H take 1 [facility] 500 mg 4-15 07-15 t} tablet by [facility] tablet 00:00: 00:00 oral route 00 :00 2 times every day with morning and evening meals lisinopril 2020-2020- No 1{table Q1D take 1 [facility] 20 mg 4-15 07-15 t} tablet by [facility] tablet 00:00: 00:00 oral route 00 :00 every day for blood pressure glimepiride 2020- No take 1 [facility] 1 mg tablet -23 02-15 tablet by [facility] 00:00: 00:00 oral route 00 :00 every day in the morning with food for diabetes aspirin 81 2020- No take 1 Please [facility] mg -15 -15 tablet by [facility] tablet,[facility] 00:00: 00:00 oral route any yed release 00 :00 every day remaining at bedtime refills for heart from previous scripts Viagra 2020- No 1{table QD take 1 [facility] mg tablet -23 02-15 t} tablet by [facility] 00:00: 00:00 oral route 00 :00 every day as needed approximat flor 1 hour before sexual activity as needed atorvastati 2020- No 1{table Q1D take 1 [facility] 20 mg -23 02-15 t} tablet by [facility] tablet 00:00: 00:00 oral route 00 :00 every day for cholestero l metformin 2020- No 1{table Q12H take 1 [facility] 500 mg -15 -15 t} tablet by [facility] tablet 00:00: 00:00 oral route 00 :00 2 times every day with morning and evening meals lisinopril 2020- No 1{table Q1D take 1 [facility] 20 mg -15 -15 t} tablet by [facility] tablet 00:00: 00:00 oral route 00 :00 every day for blood pressure glimepiride 2020- No take 1 [facility] 1 mg tablet 11-24-15 tablet by [facility] 00:00: 00:00 oral route 00 :00 every day in the morning with food for diabetes aspirin 81 2020- No take 1 Please [facility] mg -15 -15 tablet by [facility] tablet,[facility] 00:00: 00:00 oral route any yed release 00 :00 every day remaining at bedtime refills for heart from previous scripts Viagra 25 2020- No 1{table QD take 1 [facility] mg tablet -15 -15 t} tablet by [facility] 00:00: 00:00 oral route 00 :00 every day as needed approximat flor 1 hour before sexual activity as needed atorvastati 2020- No 1{table Q1D take 1 [facility] 20 mg 4-15 07-15 t} tablet by [facility] tablet 00:00: 00:00 oral route 00 :00 every day for cholestero l Viagra 25 2020- No 1{table QD take 1 [facility] mg tablet 4-15 07-15 t} tablet by [facility] 00:00: 00:00 oral route 00 :00 every day as needed approximat flor 1 hour before sexual activity as needed metformin 2020- No 1{table Q12H take 1 [facility] 500 mg 4-15 07-15 t} tablet by [facility] tablet 00:00: 00:00 oral route 00 :00 2 times every day with morning and evening meals lisinopril 2020- No 1{table Q1D take 1 [facility] 20 mg 4-15 07-15 t} tablet by [facility] tablet 00:00: 00:00 oral route 00 :00 every day for blood pressure glimepiride 2020- No take 1 [facility] 1 mg tablet 4-15 07-15 tablet by [facility] 00:00: 00:00 oral route 00 :00 every day in the morning with food for diabetes aspirin 81 2020- No take 1 Please [facility] mg 4-15 07-15 tablet [facility] 00:00: 00:00 oral route any yed release 00 :00 every day remaining at bedtime refills for heart from previous scripts metformin 2020- No 1{table Q12H take 1 [facility] 500 mg 4-15 07-15 t} tablet by [facility] tablet 00:00: 00:00 oral route 00 :00 2 times every day with morning and evening meals lisinopril 2020- No 1{table Q1D take 1 [facility] 20 mg 4-15 07-15 t} tablet by [facility] tablet 00:00: 00:00 oral route 00 :00 every day for blood pressure glimepiride 2020- No take 1 [facility] 1 mg tablet 4-15 07-15 tablet by [facility] 00:00: 00:00 oral route 00 :00 every day in the morning with food for diabetes aspirin 81 2020-0 2020- No take 1 Please [facility] mg 11-24-15 tablet by [facility] tablet,[facility] 00:00: 00:00 oral route any yed release 00 :00 every day remaining at bedtime refills for heart from previous scripts Viagra 25 2020-2020- No 1{table QD take 1 [facility] mg tablet 11-2415 t} tablet by [facility] 00:00: 00:00 oral route 00 :00 every day as needed approximat flor 1 hour before sexual activity as needed atorvastati 2020-2020- No 1{table Q1D take 1 [facility] 20 mg 11-24 t} tablet by [facility] tablet 00:00: 00:00 oral route 00 :00 every day for cholestero l metformin 2020-2020- No 1{table Q12H take 1 [facility] 500 mg 08-19 t} tablet by [facility] tablet 00:00: 00:00 oral route 00 :00 2 times every day with morning and evening meals glimepiride 2020-2020- No take 1 [facility] 1 mg tablet 08-19 tablet by [facility] 00:00: 00:00 oral route 00 :00 every day in the morning with food for diabetes atorvastati 2020-2020- No 1{table Q1D take 1 [facility] 20 mg 08-19 t} tablet by [facility] tablet 00:00: 00:00 oral route 00 :00 every day for cholestero l aspirin 81 2020-0 2020- No take 1 Please [facility] mg 08-1915 tablet by [facility] tablet,[facility] 00:00: 00:00 oral route any yed release 00 :00 every day remaining at bedtime refills for heart from previous scripts lisinopril 2020-2020- No 1{table Q1D take 1 new [facility] 20 mg 08-1915 t} tablet by [facility] tablet 00:00: 00:00 oral route dose 00 :00 every day for blood pressure metformin 2020- No 1{table Q12H take 1 [facility] 500 mg 08-1915 t} tablet by [facility] tablet 00:00: 00:00 oral route 00 :00 2 times every day with morning and evening meals glimepiride 2020-2020- No take 1 [facility] 1 mg tablet 08-1915 tablet by [facility] 00:00: 00:00 oral route 00 :00 every day in the morning with food for diabetes atorvastati 2020-2020- No 1{table Q1D take 1 [facility] 20 mg 08-1915 t} tablet by [facility] tablet 00:00: 00:00 oral route 00 :00 every day for cholestero l aspirin 81 2020-2020- No take 1 Please [facility] mg 08-1915 tablet by [facility] tablet,[facility] 00:00: 00:00 oral route any yed release 00 :00 every day remaining at bedtime refills for heart from previous scripts lisinopril 2020- No 1{table Q1D take 1 new [facility] 20 mg 08-1915 t} tablet by [facility] tablet 00:00: 00:00 oral route dose 00 :00 every day for blood pressure metformin 2020-2020- No 1{table Q12H take 1 [facility] 500 mg 08-1915 t} tablet by [facility] tablet 00:00: 00:00 oral route 00 :00 2 times every day with morning and evening meals glimepiride 2020-2020- No take 1 [facility] 1 mg tablet 08-1915 tablet by [facility] 00:00: 00:00 oral route 00 :00 every day in the morning with food for diabetes atorvastati 2020-2020- No 1{table Q1D take 1 [facility] 20 mg 08-1915 t} tablet [facility] tablet 00:00: 00:00 oral route 00 :00 every day for cholestero l aspirin 81 2020-2020- No take 1 Please [facility] mg 08-1915 tablet by [facility] tablet,[facility] 00:00: 00:00 oral route any yed release 00 :00 every day remaining at bedtime refills for heart from previous scripts lisinopril 2020- No 1{table Q1D take 1 new [facility] 20 mg 08-1915 t} tablet by [facility] tablet 00:00: 00:00 oral route dose 00 :00 every day for blood pressure metformin 2020-2020- No 1{table Q12H take 1 [facility] 500 mg 08-1915 t} tablet by [facility] tablet 00:00: 00:00 oral route 00 :00 2 times every day with morning and evening meals glimepiride 2020-2020- No take 1 [facility] 1 mg tablet 08-19 tablet by [facility] 00:00: 00:00 oral route 00 :00 every day in the morning with food for diabetes atorvastati 2020-2020- No 1{table Q1D take 1 [facility] 20 mg 08-19 t} tablet [facility] tablet 00:00: 00:00 oral route 00 :00 every day for cholestero l aspirin 81 2020-2020- No take 1 Please [facility] mg 08-19 tablet by [facility] tablet,[facility] 00:00: 00:00 oral route any yed release 00 :00 every day remaining at bedtime refills for heart from previous scripts lisinopril 2020- No 1{table Q1D take 1 new [facility] 20 mg 08-1915 t} tablet by [facility] tablet 00:00: 00:00 oral route dose 00 :00 every day for blood pressure metformin 2020-0 2020- No 1{table Q12H take 1 [facility] 500 mg 08-1915 t} tablet by [facility] tablet 00:00: 00:00 oral route 00 :00 2 times every day with morning and evening meals glimepiride 2020-2020- No take 1 [facility] 1 mg tablet 08-1915 tablet by [facility] 00:00: 00:00 oral route 00 :00 every day in the morning with food for diabetes atorvastati 2020- No 1{table Q1D take 1 [facility] 20 mg 1-08 04-15 t} tablet by [facility] tablet 00:00: 00:00 oral route 00 :00 every day for cholestero l aspirin 81 2020-0 2020- No take 1 Please [facility] mg 08-1915 tablet by [facility] tablet,[facility] 00:00: 00:00 oral route any yed release 00 :00 every day remaining at bedtime refills for heart from previous scripts lisinopril 2020-2020- No 1{table Q1D take 1 new [facility] 20 mg 08-1915 t} tablet by [facility] tablet 00:00: 00:00 oral route dose 00 :00 every day for blood pressure metformin 2020-2020- No 1{table Q12H take 1 [facility] 500 mg 08-1915 t} tablet by [facility] tablet 00:00: 00:00 oral route 00 :00 2 times every day with morning and evening meals glimepiride 2020-2020- No take 1 [facility] 1 mg tablet 08-19 tablet by [facility] 00:00: 00:00 oral route 00 :00 every day in the morning with food for diabetes atorvastati 2020-2020- No 1{table Q1D take 1 [facility] 20 mg 08-1915 t} tablet by [facility] tablet 00:00: 00:00 oral route 00 :00 every day for cholestero l aspirin 81 2020-0 2020- No take 1 Please [facility] mg 08-1915 tablet by [facility] tablet,[facility] 00:00: 00:00 oral route any yed release 00 :00 every day remaining at bedtime refills for heart from previous scripts lisinopril 2020-2020- No 1{table Q1D take 1 new [facility] 20 mg 08-19-15 t} tablet by [facility] tablet 00:00: 00:00 oral route dose 00 :00 every day for blood pressure metformin 2020-2020- No 1{table Q12H take 1 [facility] 500 mg 08-19-15 t} tablet by [facility] tablet 00:00: 00:00 oral route 00 :00 2 times every day with morning and evening meals glimepiride 2020-2020- No take 1 [facility] 1 mg tablet 08-19 tablet by [facility] 00:00: 00:00 oral route 00 :00 every day in the morning with food for diabetes atorvastati 2020-2020- No 1{table Q1D take 1 [facility] 20 mg 08-19 t} tablet by [facility] tablet 00:00: 00:00 oral route 00 :00 every day for cholestero l aspirin 81 2020- No take 1 Please [facility] mg 08-19 tablet by [facility] tablet,[facility] 00:00: 00:00 oral route any yed release 00 :00 every day remaining at bedtime refills for heart from previous scripts lisinopril 2020- No 1{table Q1D take 1 new [facility] 20 mg 08-19 t} tablet by [facility] tablet 00:00: 00:00 oral route dose 00 :00 every day for blood pressure metformin 2020-2020- No 1{table Q12H take 1 [facility] 500 mg 08-19 t} tablet by [facility] tablet 00:00: 00:00 oral route 00 :00 2 times every day with morning and evening meals glimepiride 2020-2020- No take 1 [facility] 1 mg tablet 08-19 tablet by [facility] 00:00: 00:00 oral route 00 :00 every day in the morning with food for diabetes atorvastati 2020-2020- No 1{table Q1D take 1 [facility] 20 mg 08-19 t} tablet by [facility] tablet 00:00: 00:00 oral route 00 :00 every day for cholestero l aspirin 81 2020-2020- No take 1 Please [facility] mg 08-1915 tablet by [facility] tablet,[facility] 00:00: 00:00 oral route any yed release 00 :00 every day remaining at bedtime refills for heart from previous scripts lisinopril 2020- No 1{table Q1D take 1 new [facility] 20 mg 08-19 t} tablet by [facility] tablet 00:00: 00:00 oral route dose 00 :00 every day for blood pressure metformin 2020-2020- No 1{table Q12H take 1 [facility] 500 mg 08-1915 t} tablet by [facility] tablet 00:00: 00:00 oral route 00 :00 2 times every day with morning and evening meals glimepiride 2020-2020- No take 1 [facility] 1 mg tablet 08-1915 tablet by [facility] 00:00: 00:00 oral route 00 :00 every day in the morning with food for diabetes atorvastati 2020-2020- No 1{table Q1D take 1 [facility] 20 mg 08-1915 t} tablet by [facility] tablet 00:00: 00:00 oral route 00 :00 every day for cholestero l aspirin 81 2020-2020- No take 1 Please [facility] mg 08-1915 tablet by [facility] tablet,[facility] 00:00: 00:00 oral route any yed release 00 :00 every day remaining at bedtime refills for heart from previous scripts lisinopril 2020- No 1{table Q1D take 1 new [facility] 20 mg 08-1915 t} tablet by [facility] tablet 00:00: 00:00 oral route dose 00 :00 every day for blood pressure metformin 2020-2020- No 1{table Q12H take 1 [facility] 500 mg 08-1915 t} tablet by [facility] tablet 00:00: 00:00 oral route 00 :00 2 times every day with morning and evening meals glimepiride 2020-2020- No take 1 [facility] 1 mg tablet 08-1915 tablet by [facility] 00:00: 00:00 oral route 00 :00 every day in the morning with food for diabetes atorvastati 2020-2020- No 1{table Q1D take 1 [facility] 20 mg 08-19-15 t} tablet by [facility] tablet 00:00: 00:00 oral route 00 :00 every day for cholestero l aspirin 81 2020-2020- No take 1 Please [facility] mg 08-19-15 tablet by [facility] tablet,[facility] 00:00: 00:00 oral route any yed release 00 :00 every day remaining at bedtime refills for heart from previous scripts lisinopril 2020-2020- No 1{table Q1D take 1 new [facility] 20 mg 08-19-15 t} tablet by [facility] tablet 00:00: 00:00 oral route dose 00 :00 every day for blood pressure metformin 2020-0 2020- No 1{table Q12H take 1 [facility] 500 mg 08-19-15 t} tablet by [facility] tablet 00:00: 00:00 oral route 00 :00 2 times every day with morning and evening meals glimepiride 2020-2020- No take 1 [facility] 1 mg tablet 08-19 tablet by [facility] 00:00: 00:00 oral route 00 :00 every day in the morning with food for diabetes atorvastati 2020-2020- No 1{table Q1D take 1 [facility] 20 mg 08-1915 t} tablet by [facility] tablet 00:00: 00:00 oral route 00 :00 every day for cholestero l aspirin 81 2020-2020- No take 1 Please [facility] mg 08-1915 tablet by [facility] tablet,[facility] 00:00: 00:00 oral route any yed release 00 :00 every day remaining at bedtime refills for heart from previous scripts lisinopril 2020-2020- No 1{table Q1D take 1 new [facility] 20 mg 08-19-15 t} tablet by [facility] tablet 00:00: 00:00 oral route dose 00 :00 every day for blood pressure metformin 2020-0 2020- No 1{table Q12H take 1 [facility] 500 mg 08-19-15 t} tablet by [facility] tablet 00:00: 00:00 oral route 00 :00 2 times every day with morning and evening meals glimepiride 2020-2020- No take 1 [facility] 1 mg tablet 08-19-15 tablet by [facility] 00:00: 00:00 oral route 00 :00 every day in the morning with food for diabetes atorvastati 2020- No 1{table Q1D take 1 [facility] 20 mg 08-1915 t} tablet by [facility] tablet 00:00: 00:00 oral route 00 :00 every day for cholestero l aspirin 81 2020-2020- No take 1 Please [facility] mg 08-1915 tablet by [facility] tablet,[facility]gang 00:00: 00:00 oral route any yed release 00 :00 every day remaining at bedtime refills for heart from previous scripts lisinopril 2020- No 1{table Q1D take 1 new [facility] 20 mg 08-1915 t} tablet by [facility] tablet 00:00: 00:00 oral route dose 00 :00 every day for blood pressure metformin 2020- No 1{table Q12H take 1 [facility] 500 mg 08-1915 t} tablet by [facility] tablet 00:00: 00:00 oral route 00 :00 2 times every day with morning and evening meals glimepiride 2020-2020- No take 1 [facility] 1 mg tablet 08-19 tablet by [facility] 00:00: 00:00 oral route 00 :00 every day in the morning with food for diabetes atorvastati 2020- No 1{table Q1D take 1 [facility] 20 mg 08-1915 t} tablet by [facility] tablet 00:00: 00:00 oral route 00 :00 every day for cholestero l aspirin 81 2020-2020- No take 1 Please [facility] mg 08-1915 tablet by [facility] tablet,[facility]gang 00:00: 00:00 oral route any yed release 00 :00 every day remaining at bedtime refills for heart from previous scripts lisinopril 2020- No 1{table Q1D take 1 new [facility] 20 mg 08-19-15 t} tablet by [facility] tablet 00:00: 00:00 oral route dose 00 :00 every day for blood pressure metformin 2020-0 2020- No 1{table Q12H take 1 [facility] 500 mg 08-19-15 t} tablet by [facility] tablet 00:00: 00:00 oral route 00 :00 2 times every day with morning and evening meals glimepiride 2020-2020- No take 1 [facility] 1 mg tablet 08-19 tablet by [facility] 00:00: 00:00 oral route 00 :00 every day in the morning with food for diabetes atorvastati 2020-2020- No 1{table Q1D take 1 [facility] 20 mg 08-19 t} tablet by [facility] tablet 00:00: 00:00 oral route 00 :00 every day for cholestero l aspirin 81 2020- No take 1 Please [facility] mg 08-19 tablet by [facility] tablet,[facility] 00:00: 00:00 oral route any yed release 00 :00 every day remaining at bedtime refills for heart from previous scripts lisinopril 2020- No 1{table Q1D take 1 new [facility] 20 mg 08-19 t} tablet by [facility] tablet 00:00: 00:00 oral route dose 00 :00 every day for blood pressure metformin 2020-2020- No 1{table Q12H take 1 [facility] 500 mg 08-19 t} tablet by [facility] tablet 00:00: 00:00 oral route 00 :00 2 times every day with morning and evening meals glimepiride 2020-2020- No take 1 [facility] 1 mg tablet 08-19 tablet by [facility] 00:00: 00:00 oral route 00 :00 every day in the morning with food for diabetes atorvastati 2020-2020- No 1{table Q1D take 1 [facility] 20 mg 08-19 t} tablet by [facility] tablet 00:00: 00:00 oral route 00 :00 every day for cholestero l aspirin 81 2020-2020- No take 1 Please [facility] mg 08-19 tablet by [facility] tablet,[facility]gang 00:00: 00:00 oral route any yed release 00 :00 every day remaining at bedtime refills for heart from previous scripts lisinopril 2020-2020- No 1{table Q1D take 1 new [facility] 20 mg 1-08 04-15 t} tablet by [facility] tablet 00:00: 00:00 oral route dose 00 :00 every day for blood pressure metformin 2020-0 2020- No 1{table Q12H take 1 [facility] 500 mg 08-1915 t} tablet by [facility] tablet 00:00: 00:00 oral route 00 :00 2 times every day with morning and evening meals metformin 2020-2020- No 1{table Q12H take 1 [facility] 500 mg 08-1915 t} tablet by [facility] tablet 00:00: 00:00 oral route 00 :00 2 times every day with morning and evening meals glimepiride 2020-2020- No take 1 [facility] 1 mg tablet 08-19 tablet by [facility] 00:00: 00:00 oral route 00 :00 every day in the morning with food for diabetes atorvastati 2020-2020- No 1{table Q1D take 1 [facility] 20 mg 08-1915 t} tablet by [facility] tablet 00:00: 00:00 oral route 00 :00 every day for cholestero l aspirin 81 2020-2020- No take 1 Please [facility] mg 08-19 tablet by [facility] tabletwolfgang 00:00: 00:00 oral route any yed release 00 :00 every day remaining at bedtime refills for heart from previous scripts lisinopril 2020-2020- No 1{table Q1D take 1 new [facility] 20 mg 08-1915 t} tablet by [facility] tablet 00:00: 00:00 oral route dose 00 :00 every day for blood pressure glimepiride 2020-2020- No take 1 [facility] 1 mg tablet 08-1915 tablet by [facility] 00:00: 00:00 oral route 00 :00 every day in the morning with food for diabetes atorvastati 2020-2020- No 1{table Q1D take 1 [facility] 20 mg 08-1915 t} tablet by [facility] tablet 00:00: 00:00 oral route 00 :00 every day for cholestero l aspirin 81 2020-2020- No take 1 Please [facility] mg 08-19 tablet by [facility] tablet,[facility]gang 00:00: 00:00 oral route any yed release 00 :00 every day remaining at bedtime refills for heart from previous scripts lisinopril 2020- No 1{table Q1D take 1 new [facility] 20 mg 08-19 t} tablet by [facility] tablet 00:00: 00:00 oral route dose 00 :00 every day for blood pressure metformin 2020- No 1{table Q12H take 1 [facility] 500 mg 08-19 t} tablet by [facility] tablet 00:00: 00:00 oral route 00 :00 2 times every day with morning and evening meals glimepiride 2020-2020- No take 1 [facility] 1 mg tablet 08-19 tablet by [facility] 00:00: 00:00 oral route 00 :00 every day in the morning with food for diabetes atorvastati 2020- No 1{table Q1D take 1 [facility] 20 mg 08-19 t} tablet by [facility] tablet 00:00: 00:00 oral route 00 :00 every day for cholestero l aspirin 81 2020-2020- No take 1 Please [facility] mg 08-19 tablet by [facility] tablet,[facility]gang 00:00: 00:00 oral route any yed release 00 :00 every day remaining at bedtime refills for heart from previous scripts lisinopril 2020-2020- No 1{table Q1D take 1 new [facility] 20 mg 08-19 t} tablet by [facility] tablet 00:00: 00:00 oral route dose 00 :00 every day for blood pressure metformin 2020-2020- No 1{table Q12H take 1 [facility] 500 mg 08-19 t} tablet by [facility] tablet 00:00: 00:00 oral route 00 :00 2 times every day with morning and evening meals aspirin 81 2020- No take 1 Please [facility] mg 08-19 tablet by [facility] tablet,[place]gang 00:00: 00:00 oral route any yed release 00 :00 every day remaining at bedtime refills for heart from previous scripts glimepiride 2020-2020- No take 1 [facility] 1 mg tablet 08-19 tablet by [facility] 00:00: 00:00 oral route 00 :00 every day in the morning with food for diabetes atorvastati 2020-2020- No 1{table Q1D take 1 [facility] 20 mg 08-19 t} tablet by [facility] tablet 00:00: 00:00 oral route 00 :00 every day for cholestero l lisinopril 2020-2020- No 1{table Q1D take 1 new [facility] 20 mg 08-19 t} tablet by [facility] tablet 00:00: 00:00 oral route dose 00 :00 every day for blood pressure metformin 2020-2020- No 1{table Q12H take 1 [facility] 500 mg 08-19 t} tablet by [facility] tablet 00:00: 00:00 oral route 00 :00 2 times every day with morning and evening meals glimepiride 2020-2020- No take 1 [facility] 1 mg tablet 08-19 tablet by [facility] 00:00: 00:00 oral route 00 :00 every day in the morning with food for diabetes atorvastati 2020-2020- No 1{table Q1D take 1 [facility] 20 mg 08-19 t} tablet by [facility] tablet 00:00: 00:00 oral route 00 :00 every day for cholestero l aspirin 81 2020-2020- No take 1 Please [facility] mg 08-19 tablet by [facility] tablet,[place]gang 00:00: 00:00 oral route any yed release 00 :00 every day remaining at bedtime refills for heart from previous scripts lisinopril 2020-2020- No 1{table Q1D take 1 new [facility] 20 mg 08-19 t} tablet by [facility] tablet 00:00: 00:00 oral route dose 00 :00 every day for blood pressure Lyrica 150 2020-0 2020- No 1{capsu Q8H take 1 A [facility] mg capsule 08-19 le} capsule by ea lt 00:00: 00:00 oral route 00 :00 3 times every day for feet numbness lisinopril 2021-0 2021- No 1{table Q1D take 1 [facility] 10 mg 08-19 t} tablet by [facility] tablet 00:00: 00:00 oral route 00 :00 every day for blood pressure amitriptyli 2021-0 2021- No 1{table Q1D take 1 [facility] 25 mg 08-19 t} tablet by [facility] tablet 00:00: 00:00 oral route 00 :00 every day at bedtime for neuropathy Lyrica 150 2021-0 2021- No 1{capsu Q8H take 1 A [facility] mg capsule 08-19} capsule by ea lt 00:00: 00:00 oral route 00 :00 3 times every day for feet numbness lisinopril 2021-0 2021- No 1{table Q1D take 1 [facility] 10 mg 08-19 t} tablet by [facility] tablet 00:00: 00:00 oral route 00 :00 every day for blood pressure amitriptyli 2021-0 2021- No 1{table Q1D take 1 [facility] 25 mg 08-19 t} tablet by [facility] tablet 00:00: 00:00 oral route 00 :00 every day at bedtime for neuropathy Lyrica 150 2021-0 2021- No 1{capsu Q8H take 1 A [facility] mg capsule 08-19 le} capsule by ea lt 00:00: 00:00 oral route 00 :00 3 times every day for feet numbness lisinopril 2021-0 2021- No 1{table Q1D take 1 [facility] 10 mg 08-19 t} tablet by [facility] tablet 00:00: 00:00 oral route 00 :00 every day for blood pressure amitriptyli 2021-0 2021- No 1{table Q1D take 1 [facility] 25 mg 08-19 t} tablet by [facility] tablet 00:00: 00:00 oral route 00 :00 every day at bedtime for neuropathy Lyrica 150 2021-0 2021- No 1{capsu Q8H take 1 [facility] mg capsule 08-19 le} capsule by [facility] 00:00: 00:00 oral route 00 :00 3 times every day for feet numbness lisinopril 2021-0 2021- No 1{table Q1D take 1 [facility] 10 mg 08-19 t} tablet by [facility] tablet 00:00: 00:00 oral route 00 :00 every day for blood pressure amitriptyli 202-0 2021- No 1{table Q1D take 1 [facility] 25 mg 08-19 t} tablet by [facility] tablet 00:00: 00:00 oral route 00 :00 every day at bedtime for neuropathy Lyrica 150 2020-0 2021- No 1{capsu Q8H take 1 [facility] mg capsule 08-19 le} capsule by [facility] 00:00: 00:00 oral route 00 :00 3 times every day for feet numbness lisinopril 2021-0 2021- No 1{table Q1D take 1 [facility] 10 mg 08-19 t} tablet by [facility] tablet 00:00: 00:00 oral route 00 :00 every day for blood pressure amitriptyli 2021-0 2021- No 1{table Q1D take 1 [facility] 25 mg 08-19 t} tablet by [facility] tablet 00:00: 00:00 oral route 00 :00 every day at bedtime for neuropathy Lyrica 150 2021-0 2021- No 1{capsu Q8H take 1 [facility] mg capsule 08-19 le} capsule by [facility] 00:00: 00:00 oral route 00 :00 3 times every day for feet numbness lisinopril 2021-0 2021- No 1{table Q1D take 1 [facility] 10 mg 08-19 t} tablet by [facility] tablet 00:00: 00:00 oral route 00 :00 every day for blood pressure amitriptyli 2021-0 2021- No 1{table Q1D take 1 [facility] 25 mg 08-19 t} tablet by [facility] tablet 00:00: 00:00 oral route 00 :00 every day at bedtime for neuropathy Lyrica 150 2021-0 2021- No 1{capsu Q8H take 1 [facility] mg capsule 08-19 le} capsule by [facility] 00:00: 00:00 oral route 00 :00 3 times every day for feet numbness lisinopril 2021-0 2021- No 1{table Q1D take 1 [facility] 10 mg 08-19 t} tablet by [facility] tablet 00:00: 00:00 oral route 00 :00 every day for blood pressure amitriptyli 2021-0 2021- No 1{table Q1D take 1 [facility] 25 mg 08-19 t} tablet by [facility] tablet 00:00: 00:00 oral route 00 :00 every day at bedtime for neuropathy Lyrica 150 2021-0 2021- No 1{capsu Q8H take 1 A [facility] mg capsule 08-19 le} capsule by [facility] 00:00: 00:00 oral route 00 :00 3 times every day for feet numbness lisinopril 2021-0 2021- No 1{table Q1D take 1 [facility] 10 mg 08-19 t} tablet by [facility] tablet 00:00: 00:00 oral route 00 :00 every day for blood pressure amitriptyli 2021-0 2021- No 1{table Q1D take 1 [facility] 25 mg 08-19 t} tablet by [facility] tablet 00:00: 00:00 oral route 00 :00 every day at bedtime for neuropathy Lyrica 150 2021-0 2021- No 1{capsu Q8H take 1 [facility] mg capsule 08-19 le} capsule by [facility] 00:00: 00:00 oral route 00 :00 3 times every day for feet numbness lisinopril 2021-0 2021- No 1{table Q1D take 1 [facility] 10 mg 08-19 t} tablet by [facility] tablet 00:00: 00:00 oral route 00 :00 every day for blood pressure amitriptyli 2021-0 2021- No 1{table Q1D take 1 [facility] 25 mg 1-08 01-08 t} tablet by [facility] tablet 00:00: 00:00 oral route 00 :00 every day at bedtime for neuropathy Lyrica 150 2021-0 2021- No 1{capsu Q8H take 1 [facility] mg capsule 08-19 le} capsule by [facility] 00:00: 00:00 oral route 00 :00 3 times every day for feet numbness lisinopril 2021-0 2021- No 1{table Q1D take 1 [facility] 10 mg 08-19 t} tablet by [facility] tablet 00:00: 00:00 oral route 00 :00 every day for blood pressure amitriptyli 202-0 2021- No 1{table Q1D take 1 [facility] 25 mg 08-19 t} tablet by [facility] tablet 00:00: 00:00 oral route 00 :00 every day at bedtime for neuropathy Lyrica 150 2021-0 2021- No 1{capsu Q8H take 1 [facility] mg capsule 08-19 le} capsule by [facility] 00:00: 00:00 oral route 00 :00 3 times every day for feet numbness lisinopril 2021-0 2021- No 1{table Q1D take 1 [facility] 10 mg 08-19 t} tablet by [facility] tablet 00:00: 00:00 oral route 00 :00 every day for blood pressure amitriptyli 2021-0 2021- No 1{table Q1D take 1 [facility] 25 mg 08-19 t} tablet by [facility] tablet 00:00: 00:00 oral route 00 :00 every day at bedtime for neuropathy Lyrica 150 2021-0 2021- No 1{capsu Q8H take 1 [facility] mg capsule 08-19 le} capsule by [facility] 00:00: 00:00 oral route 00 :00 3 times every day for feet numbness lisinopril 2021-0 2021- No 1{table Q1D take 1 [facility] 10 mg 08-19 t} tablet by [facility] tablet 00:00: 00:00 oral route 00 :00 every day for blood pressure amitriptyli 202-0 2021- No 1{table Q1D take 1 [facility] 25 mg 08-19 t} tablet by [facility] tablet 00:00: 00:00 oral route 00 :00 every day at bedtime for neuropathy Lyrica 150 2021-0 2021- No 1{capsu Q8H take 1 [facility] mg capsule 08-19 le} capsule by [facility] 00:00: 00:00 oral route 00 :00 3 times every day for feet numbness lisinopril 202-0 2021- No 1{table Q1D take 1 [facility] 10 mg 08-19 t} tablet by [facility] tablet 00:00: 00:00 oral route 00 :00 every day for blood pressure amitriptyli 202-0 2021- No 1{table Q1D take 1 [facility] 25 mg 08-19 t} tablet by [facility] tablet 00:00: 00:00 oral route 00 :00 every day at bedtime for neuropathy Lyrica 150 202-0 2021- No 1{capsu Q8H take 1 [facility] mg capsule 08-19 le} capsule by [facility] 00:00: 00:00 oral route 00 :00 3 times every day for feet numbness lisinopril 2021-0 2021- No 1{table Q1D take 1 [facility] 10 mg 08-19 t} tablet by [facility] tablet 00:00: 00:00 oral route 00 :00 every day for blood pressure amitriptyli 202-0 2021- No 1{table Q1D take 1 [facility] 25 mg 08-19 t} tablet by [facility] tablet 00:00: 00:00 oral route 00 :00 every day at bedtime for neuropathy Lyrica 150 202-0 2021- No 1{capsu Q8H take 1 [facility] mg capsule 08-19 le} capsule by [facility] 00:00: 00:00 oral route 00 :00 3 times every day for feet numbness lisinopril 2021-0 2021- No 1{table Q1D take 1 [facility] 10 mg 08-19 t} tablet by [facility] tablet 00:00: 00:00 oral route 00 :00 every day for blood pressure amitriptyli 2021-0 2021- No 1{table Q1D take 1 [facility] 25 mg 08-19 t} tablet by [facility] tablet 00:00: 00:00 oral route 00 :00 every day at bedtime for neuropathy Lyrica 150 2021-0 2021- No 1{capsu Q8H take 1 [facility] mg capsule 08-19 le} capsule by [facility] 00:00: 00:00 oral route 00 :00 3 times every day for feet numbness lisinopril 202-0 2021- No 1{table Q1D take 1 [facility] 10 mg 08-19 t} tablet by [facility] tablet 00:00: 00:00 oral route 00 :00 every day for blood pressure amitriptyli 2021-0 2021- No 1{table Q1D take 1 [facility] 25 mg 08-19 t} tablet by [facility] tablet 00:00: 00:00 oral route 00 :00 every day at bedtime for neuropathy Lyrica 150 2021-0 2021- No 1{capsu Q8H take 1 [facility] mg capsule 08-19} capsule by [facility] 00:00: 00:00 oral route 00 :00 3 times every day for feet numbness lisinopril 2021-0 2021- No 1{table Q1D take 1 [facility] 10 mg 08-19 t} tablet by [facility] tablet 00:00: 00:00 oral route 00 :00 every day for blood pressure amitriptyli 2021-0 2021- No 1{table Q1D take 1 [facility] 25 mg 08-19 t} tablet by [facility] tablet 00:00: 00:00 oral route 00 :00 every day at bedtime for neuropathy Lyrica 150 2021-0 2021- No 1{capsu Q8H take 1 A [facility] mg capsule 08-19 le} capsule by [facility] 00:00: 00:00 oral route 00 :00 3 times every day for feet numbness lisinopril 2021-0 2021- No 1{table Q1D take 1 [facility] 10 mg 08-19 t} tablet by [facility] tablet 00:00: 00:00 oral route 00 :00 every day for blood pressure amitriptyli 2021-0 2021- No 1{table Q1D take 1 [facility] 25 mg 08-19 t} tablet by [facility] tablet 00:00: 00:00 oral route 00 :00 every day at bedtime for neuropathy Lyrica 150 202-0 2021- No 1{capsu Q8H take 1 [facility] mg capsule 08-19 le} capsule by [facility] 00:00: 00:00 oral route 00 :00 3 times every day for feet numbness lisinopril 2021-0 2021- No 1{table Q1D take 1 [facility] 10 mg 08-19 t} tablet by [facility] tablet 00:00: 00:00 oral route 00 :00 every day for blood pressure amitriptyli 2021-0 2021- No 1{table Q1D take 1 [facility] 25 mg 08-19 t} tablet by [facility] tablet 00:00: 00:00 oral route 00 :00 every day at bedtime for neuropathy Lyrica 150 2021-0 2021- No 1{capsu Q8H take 1 [facility] mg capsule 08-19 le} capsule by [facility] 00:00: 00:00 oral route 00 :00 3 times every day for feet numbness lisinopril 2021-0 2021- No 1{table Q1D take 1 [facility] 10 mg 08-19 t} tablet by [facility] tablet 00:00: 00:00 oral route 00 :00 every day for blood pressure amitriptyli 2021-0 2021- No 1{table Q1D take 1 [facility] 25 mg 08-19 t} tablet by [facility] tablet 00:00: 00:00 oral route 00 :00 every day at bedtime for neuropathy Lyrica 150 2021-0 2021- No 1{capsu Q8H take 1 A [facility] mg capsule 08-19 le} capsule by [facility] 00:00: 00:00 oral route 00 :00 3 times every day for feet numbness lisinopril 2021-0 2021- No 1{table Q1D take 1 [facility] 10 mg 08-19 t} tablet by [facility] tablet 00:00: 00:00 oral route 00 :00 every day for blood pressure amitriptyli 2021-0 2021- No 1{table Q1D take 1 [facility] 25 mg 08-19 t} tablet by [facility] tablet 00:00: 00:00 oral route 00 :00 every day at bedtime for neuropathy Lyrica 150 2021-0 2021- No 1{capsu Q8H take 1 [facility] mg capsule 08-19 le} capsule by [facility] 00:00: 00:00 oral route 00 :00 3 times every day for feet numbness lisinopril 2021-0 2021- No 1{table Q1D take 1 [facility] 10 mg 08-19 t} tablet by [facility] tablet 00:00: 00:00 oral route 00 :00 every day for blood pressure amitriptyli 2021-0 2021- No 1{table Q1D take 1 [facility] 25 mg 08-19 t} tablet by [facility] tablet 00:00: 00:00 oral route 00 :00 every day at bedtime for neuropathy Lyrica 150 2021-0 2021- No 1{capsu Q8H take 1 A [facility] mg capsule 08-19 le} capsule by [facility] 00:00: 00:00 oral route 00 :00 3 times every day for feet numbness lisinopril 2021-0 2021- No 1{table Q1D take 1 [facility] 10 mg 08-19 t} tablet by [facility] tablet 00:00: 00:00 oral route 00 :00 every day for blood pressure amitriptyli 2021-0 2021- No 1{table Q1D take 1 [facility] 25 mg 08-19 t} tablet by [facility] tablet 00:00: 00:00 oral route 00 :00 every day at bedtime for neuropathy Lyrica 150 2021-0 2021- No 1{capsu Q8H take 1 A [facility] mg capsule 08-19 le} capsule by [facility] 00:00: 00:00 oral route 00 :00 3 times every day for feet numbness lisinopril 2021-0 2021- No 1{table Q1D take 1 [facility] 10 mg 08-19 t} tablet by [facility] tablet 00:00: 00:00 oral route 00 :00 every day for blood pressure amitriptyli 2021-0 2021- No 1{table Q1D take 1 [facility] 25 mg 08-19 t} tablet by [facility] tablet 00:00: 00:00 oral route 00 :00 every day at bedtime for neuropathy Lyrica 150 2021-0 2021- No 1{capsu Q8H take 1 [facility] mg capsule 08-19 le} capsule by [facility] 00:00: 00:00 oral route 00 :00 3 times every day for feet numbness lisinopril 2021-0 2021- No 1{table Q1D take 1 [facility] 10 mg 08-19 t} tablet by [facility] tablet 00:00: 00:00 oral route 00 :00 every day for blood pressure amitriptyli 2021-0 2021- No 1{table Q1D take 1 [facility] 25 mg 08-19 t} tablet by [facility] tablet 00:00: 00:00 oral route 00 :00 every day at bedtime for neuropathy Lyrica 150 2021-0 2021- No 1{capsu Q8H take 1 [facility] mg capsule 08-19 le} capsule by [facility] 00:00: 00:00 oral route 00 :00 3 times every day for feet numbness lisinopril 2021-0 2021- No 1{table Q1D take 1 [facility] 10 mg 08-19 t} tablet by [facility] tablet 00:00: 00:00 oral route 00 :00 every day for blood pressure amitriptyli 2021-0 2021- No 1{table Q1D take 1 [facility] 25 mg 08-19 t} tablet by [facility] tablet 00:00: 00:00 oral route 00 :00 every day at bedtime for neuropathy Lyrica 150 2021-0 2021- No 1{capsu Q8H take 1 [facility] mg capsule 08-19 le} capsule by [facility] 00:00: 00:00 oral route 00 :00 3 times every day for feet numbness lisinopril 2021-0 2021- No 1{table Q1D take 1 [facility] 10 mg 08-19 t} tablet by [facility] tablet 00:00: 00:00 oral route 00 :00 every day for blood pressure amitriptyli 2021-0 2021- No 1{table Q1D take 1 [facility] 25 mg 08-19 t} tablet by [facility] tablet 00:00: 00:00 oral route 00 :00 every day at bedtime for neuropathy Lyrica 150 202-0 2021- No 1{capsu Q8H take 1 [facility] mg capsule 08-19 le} capsule by [facility] 00:00: 00:00 oral route 00 :00 3 times every day for feet numbness lisinopril 2021-0 2021- No 1{table Q1D take 1 [facility] 10 mg 08-19 t} tablet by [facility] tablet 00:00: 00:00 oral route 00 :00 every day for blood pressure amitriptyli 2021-0 2021- No 1{table Q1D take 1 [facility] 25 mg 08-19 t} tablet by [facility] tablet 00:00: 00:00 oral route 00 :00 every day at bedtime for neuropathy Lyrica 150 2021-0 2021- No 1{capsu Q8H take 1 [facility] mg capsule 08-19 le} capsule by ea [facility] 00:00: 00:00 oral route 00 :00 3 times every day for feet numbness lisinopril 2021-0 2021- No 1{table Q1D take 1 [facility] 10 mg 08-19 t} tablet by [facility] tablet 00:00: 00:00 oral route 00 :00 every day for blood pressure amitriptyli 2021-0 2021- No 1{table Q1D take 1 [facility] 25 mg 08-19 t} tablet by [facility] tablet 00:00: 00:00 oral route 00 :00 every day at bedtime for neuropathy Lyrica 150 2021-0 2021- No 1{capsu Q8H take 1 A [facility] mg capsule 08-19 le} capsule by ea lt 00:00: 00:00 oral route 00 :00 3 times every day for feet numbness lisinopril 2021-0 2021- No 1{table Q1D take 1 [facility] 10 mg 08-19 t} tablet by [facility] tablet 00:00: 00:00 oral route 00 :00 every day for blood pressure amitriptyli 202-0 2021- No 1{table Q1D take 1 [facility] 25 mg 08-19 t} tablet by [facility] tablet 00:00: 00:00 oral route 00 :00 every day at bedtime for neuropathy Lyrica 150 2021-0 2021- No 1{capsu Q8H take 1 A [facility] mg capsule 08-19} capsule by ea [facility] 00:00: 00:00 oral route 00 :00 3 times every day for feet numbness Lyrica 150 2021-0 2021- No 1{capsu Q8H take 1 A [facility] mg capsule 08-19} capsule by ea lt 00:00: 00:00 oral route 00 :00 3 times every day for feet numbness lisinopril 2021-0 2021- No 1{table Q1D take 1 A [facility] 10 mg 08-19 t} tablet by [facility] tablet 00:00: 00:00 oral route 00 :00 every day for blood pressure amitriptyli 2021-0 2021- No 1{table Q1D take 1 [facility] 25 mg 08-19 t} tablet by [facility] tablet 00:00: 00:00 oral route 00 :00 every day at bedtime for neuropathy lisinopril 2021-0 2021- No 1{table Q1D take 1 [facility] 10 mg 08-19 t} tablet by [facility] tablet 00:00: 00:00 oral route 00 :00 every day for blood pressure amitriptyli 2021-0 2021- No 1{table Q1D take 1 [facility] 25 mg 08-19 t} tablet by [facility] tablet 00:00: 00:00 oral route 00 :00 every day at bedtime for neuropathy Lyrica 150 2021-0 2021- No 1{capsu Q8H take 1 A [facility] mg capsule 08-19 le} capsule by ea lth 00:00: 00:00 oral route 00 :00 3 times every day for feet numbness lisinopril 2021-0 2021- No 1{table Q1D take 1 A [facility] 10 mg 08-19 t} tablet by [facility] tablet 00:00: 00:00 oral route 00 :00 every day for blood pressure amitriptyli 202-0 2021- No 1{table Q1D take 1 [facility] 25 mg 08-19 t} tablet by [facility] tablet 00:00: 00:00 oral route 00 :00 every day at bedtime for neuropathy Lyrica 150 202-0 2021- No 1{capsu Q8H take 1 A [facility] mg capsule 08-19 le} capsule by ea lth 00:00: 00:00 oral route 00 :00 3 times every day for feet numbness lisinopril 2021-0 2021- No 1{table Q1D take 1 A [facility] 10 mg 08-19 t} [facility] 00:00: 00:00 oral route 00 :00 every day for blood pressure amitriptyli 2021-0 2021- No 1{table Q1D take 1 [facility] 25 mg 08-19 t} tablet by [facility] 00:00: 00:00 oral route 00 :00 every day at bedtime for neuropathy Lyrica 150 2021-0 2021- No 1{capsu Q8H take 1 [facility] mg capsule 08-19 le} capsule by [facility] 00:00: 00:00 oral route 00 :00 3 times every day for feet numbness lisinopril 2021-0 2021- No 1{table Q1D take 1 [facility] 10 mg 08-19 t} tablet by [facility] tablet 00:00: 00:00 oral route 00 :00 every day for blood pressure amitriptyli 202-0 2021- No 1{table Q1D take 1 [facility] 25 mg 08-19 t} tablet by [facility] tablet 00:00: 00:00 oral route 00 :00 every day at bedtime for neuropathy Lyrica 150 2021-0 2021- No 1{capsu Q8H take 1 [facility] mg capsule 08-19 le} capsule by [facility] 00:00: 00:00 oral route 00 :00 3 times every day for feet numbness lisinopril 202-0 2021- No 1{table Q1D take 1 [facility] 10 mg 08-19 t} tablet by [facility] tablet 00:00: 00:00 oral route 00 :00 every day for blood pressure amitriptyli 202-0 2021- No 1{table Q1D take 1 [facility] 25 mg 08-19 t} tablet by [facility] tablet 00:00: 00:00 oral route 00 :00 every day at bedtime for neuropathy amitriptyli 202-0 2021- No 1{table Q1D take 1 [facility] 25 mg 08-19 t} tablet by [facility] tablet 00:00: 00:00 oral route 00 :00 every day at bedtime for neuropathy Lyrica 150 202-0 2021- No 1{capsu Q8H take 1 [facility] mg capsule 08-19 le} capsule by [facility] 00:00: 00:00 oral route 00 :00 3 times every day for feet numbness lisinopril 202-0 2021- No 1{table Q1D take 1 [facility] 10 mg 08-19 t} tablet by [facility] tablet 00:00: 00:00 oral route 00 :00 every day for blood pressure amitriptyli 202-0 2021- No 1{table Q1D take 1 [facility] 25 mg 08-19 t} tablet by [facility] tablet 00:00: 00:00 oral route 00 :00 every day at bedtime for neuropathy Lyrica 150 2020-0 2021- No 1{capsu Q8H take 1 [facility] mg capsule 08-19 le} capsule by [facility] 00:00: 00:00 oral route 00 :00 3 times every day for feet numbness lisinopril 2021-0 2021- No 1{table Q1D take 1 [facility] 10 mg 08-19 t} tablet by [facility] tablet 00:00: 00:00 oral route 00 :00 every day for blood pressure Lyrica 150 2021-0 2021- No 1{capsu Q8H take 1 [facility] mg capsule 08-19 le} capsule by [facility] 00:00: 00:00 oral route 00 :00 3 times every day for feet numbness lisinopril 202-0 2021- No 1{table Q1D take 1 [facility] 10 mg 08-19 t} tablet by [facility] tablet 00:00: 00:00 oral route 00 :00 every day for blood pressure amitriptyli 2021-0 2021- No 1{table Q1D take 1 [facility] 25 mg 08-19 t} tablet by [facility] tablet 00:00: 00:00 oral route 00 :00 every day at bedtime for neuropathy Lyrica 150 2021-0 2021- No 1{capsu Q8H take 1 [facility] mg capsule 08-19 le} capsule by [facility] 00:00: 00:00 oral route 00 :00 3 times every day for feet numbness lisinopril 2021-0 2021- No 1{table Q1D take 1 [facility] 10 mg 08-19 t} tablet by [facility] tablet 00:00: 00:00 oral route 00 :00 every day for blood pressure amitriptyli 2021-0 2021- No 1{table Q1D take 1 [facility] 25 mg 08-19 t} tablet by [facility] tablet 00:00: 00:00 oral route 00 :00 every day at bedtime for neuropathy metformin 2020-0 No 1{table Q12H take 1 [facility] 500 mg 18 t} tablet by [facility] tablet 00:00: oral route 00 2 times every day with morning and evening meals Lyrica 150 2020-0 No 1{capsu Q8H take 1 [facility] 04-29 le[facility] oral route 00 3 times every day for feet numbness lisinopril 2020-0 No 1{table Q1D take 1 [facility] 10 mg 9-18 t} tablet by [facility] tablet 00:00: oral route 00 every day for blood pressure glimepiride 2020-0 No take 1 [facility] 1 mg tablet 9-18 tablet by [facility] 00:00: oral route 00 every day in the morning with food for diabetes amitriptyli 2020-0 No 1{table Q1D take 1 [facility] ne 25 mg 9-18 t} tablet by [facility] tablet 00:00: oral route 00 every day at bedtime for neuropathy atorvastati 2020-0 No 1{table Q1D take 1 [facility] n 20 mg 9-18 t} tablet by [facility] tablet 00:00: oral route 00 every day for cholestero l metformin 2020-0 No 1{table Q12H take 1 [facility] 500 mg 9-18 t} tablet by [facility] tablet 00:00: oral route 00 2 times every day with morning and evening meals Lyrica 150 2020-0 No 1{capsu Q8H take 1 [facility] mg capsule 9-18 le} capsule by [facility] 00:00: oral route 00 3 times every day for feet numbness lisinopril 2020-0 No 1{table Q1D take 1 [facility] 10 mg 9-18 t} tablet by [facility] tablet 00:00: oral route 00 every day for blood pressure glimepiride 2020-0 No take 1 [facility] 1 mg tablet 9-18 tablet by [facility] 00:00: oral route 00 every day in the morning with food for diabetes amitriptyli 2020-0 No 1{table Q1D take 1 [facility] ne 25 mg 9-18 t} tablet by [facility] tablet 00:00: oral route 00 every day at bedtime for neuropathy atorvastati 2020-0 No 1{table Q1D take 1 [facility] n 20 mg 9-18 t} tablet by [facility] tablet 00:00: oral route 00 every day for cholestero l metformin 2020-0 2021- No 1{table Q12H take 1 [facility] 500 mg 9-18 01-08 t} tablet by [facility] tablet 00:00: 00:00 oral route 00 :00 2 times every day with morning and evening meals Lyrica 150 2019-0 202- No 1{capsu Q8H take 1 [facility] mg capsule 04-29 le} capsule by [facility] 00:00: 00:00 oral route 00 :00 3 times every day for feet numbness lisinopril 2020- No 1{table Q1D take 1 [facility] 10 mg 04-29 t} tablet by [facility] tablet 00:00: 00:00 oral route 00 :00 every day for blood pressure glimepiride 2020- No take 1 [facility] 1 mg tablet 04-29 tablet by [facility] 00:00: 00:00 oral route 00 :00 every day in the morning with food for diabetes amitriptyli 2020- No 1{table Q1D take 1 [facility] 25 mg 04-29 t} tablet by [facility] tablet 00:00: 00:00 oral route 00 :00 every day at bedtime for neuropathy atorvastati 2020- No 1{table Q1D take 1 [facility] 20 mg 04-29 t} tablet by [facility] tablet 00:00: 00:00 oral route 00 :00 every day for cholestero l metformin 2019-2020- No 1{table Q12H take 1 [facility] 500 mg 04-29 t} tablet by [facility] tablet 00:00: 00:00 oral route 00 :00 2 times every day with morning and evening meals Lyrica 150 2019-0 202- No 1{capsu Q8H take 1 [facility] mg capsule 04-29 le} capsule by [facility] 00:00: 00:00 oral route 00 :00 3 times every day for feet numbness lisinopril 2020- No 1{table Q1D take 1 [facility] 10 mg 04-29 t} tablet by [facility] 00:00: 00:00 oral route 00 :00 every day for blood pressure glimepiride 2020- No take 1 [facility] 1 mg tablet 04-29 tablet by [facility] 00:00: 00:00 oral route 00 :00 every day in the morning with food for diabetes amitriptyli 2020- No 1{table Q1D take 1 [facility] 25 mg 04-29 t} tablet by [facility] 00:00: 00:00 oral route 00 :00 every day at bedtime for neuropathy atorvastati 2020- No 1{table Q1D take 1 [facility] n 20 mg 04-29 t} tablet by [facility] tablet 00:00: 00:00 oral route 00 :00 every day for cholestero l metformin 2020- No 1{table Q12H take 1 [facility] 500 mg 04-29 t} tablet by [facility] tablet 00:00: 00:00 oral route 00 :00 2 times every day with morning and evening meals Lyrica 150 2019-2020- No 1{capsu Q8H take 1 [facility] mg capsule 04-29 le} capsule by [facility] 00:00: 00:00 oral route 00 :00 3 times every day for feet numbness lisinopril 2020- No 1{table Q1D take 1 [facility] 10 mg 04-29 t} tablet by [facility] 00:00: 00:00 oral route 00 :00 every day for blood pressure glimepiride 2020- No take 1 [facility] 1 mg tablet 04-29 tablet by [facility] 00:00: 00:00 oral route 00 :00 every day in the morning with food for diabetes amitriptyli 0 2020- No 1{table Q1D take 1 [facility] 25 mg 04-29 t} tablet by [facility] tablet 00:00: 00:00 oral route 00 :00 every day at bedtime for neuropathy atorvastati 2020- No 1{table Q1D take 1 [facility] 20 mg 04-29 t} tablet by [facility] tablet 00:00: 00:00 oral route 00 :00 every day for cholestero l metformin 2020- No 1{table Q12H take 1 [facility] 500 mg 04-29 t} tablet by [facility] tablet 00:00: 00:00 oral route 00 :00 2 times every day with morning and evening meals Lyrica 150 2019-2020- No 1{capsu Q8H take 1 [facility] mg capsule 04-29 le} capsule by [facility] 00:00: 00:00 oral route 00 :00 3 times every day for feet numbness lisinopril 2020- No 1{table Q1D take 1 [facility] 10 mg 04-29 t} tablet by [facility] 00:00: 00:00 oral route 00 :00 every day for blood pressure glimepiride 2020- No take 1 [facility] 1 mg tablet 04-29 tablet by [facility] 00:00: 00:00 oral route 00 :00 every day in the morning with food for diabetes amitriptyli 2020- No 1{table Q1D take 1 [facility] 25 mg 04-29 t} tablet by [facility] 00:00: 00:00 oral route 00 :00 every day at bedtime for neuropathy atorvastati 2020- No 1{table Q1D take 1 [facility] 20 mg 04-29 t} tablet by [facility] tablet 00:00: 00:00 oral route 00 :00 every day for cholestero l atorvastati 2019-2020- No 1{table Q1D take 1 [facility] 20 mg 04-29 t} tablet by [facility] tablet 00:00: 00:00 oral route 00 :00 every day for cholestero l amitriptyli 2019-0 2020- No 1{table Q1D take 1 [facility] 25 mg 04-29 t} tablet by [facility] tablet 00:00: 00:00 oral route 00 :00 every day at bedtime for neuropathy glimepiride 2020- No take 1 [facility] 1 mg tablet 04-29 tablet by [facility] 00:00: 00:00 oral route 00 :00 every day in the morning with food for diabetes lisinopril 2020- No 1{table Q1D take 1 [facility] 10 mg 04-29 t} tablet by [facility] tablet 00:00: 00:00 oral route 00 :00 every day for blood pressure Lyrica 150 2020- No 1{capsu Q8H take 1 [facility] mg capsule 04-29 le} capsule by [facility] 00:00: 00:00 oral route 00 :00 3 times every day for feet numbness metformin 2020- No 1{table Q12H take 1 [facility] 500 mg 04-29 t} tablet by [facility] tablet 00:00: 00:00 oral route 00 :00 2 times every day with morning and evening meals metformin 2020- No 1{table Q12H take 1 [facility] 500 mg 04-29 t} tablet by [facility] tablet 00:00: 00:00 oral route 00 :00 2 times every day with morning and evening meals Lyrica 150 2020- No 1{capsu Q8H take 1 [facility] mg capsule 04-29 le} capsule by [facility] 00:00: 00:00 oral route 00 :00 3 times every day for feet numbness lisinopril 2020- No 1{table Q1D take 1 [facility] 10 mg 04-29 t} tablet by [facility] 00:00: 00:00 oral route 00 :00 every day for blood pressure glimepiride 2020- No take 1 [facility] 1 mg tablet 04-29 tablet by [facility] 00:00: 00:00 oral route 00 :00 every day in the morning with food for diabetes amitriptyli 2020- No 1{table Q1D take 1 [facility] 25 mg 04-29 t} tablet by [facility] 00:00: 00:00 oral route 00 :00 every day at bedtime for neuropathy atorvastati 2020- No 1{table Q1D take 1 [facility] 20 mg 04-29 t} tablet by [facility] 00:00: 00:00 oral route 00 :00 every day for cholestero l metformin 2020- No 1{table Q12H take 1 [facility] 500 mg 04-29 t} tablet by [facility] 00:00: 00:00 oral route 00 :00 2 times every day with morning and evening meals Lyrica 150 2019-2020- No 1{capsu Q8H take 1 [facility] mg capsule 04-29 le} capsule by [facility] 00:00: 00:00 oral route 00 :00 3 times every day for feet numbness lisinopril 2020- No 1{table Q1D take 1 [facility] 10 mg 04-29 t} tablet by [facility] 00:00: 00:00 oral route 00 :00 every day for blood pressure glimepiride 2020- No take 1 [facility] 1 mg tablet 04-29 tablet by [facility] 00:00: 00:00 oral route 00 :00 every day in the morning with food for diabetes amitriptyli 2020- No 1{table Q1D take 1 [facility] 25 mg 04-29 t} tablet by [facility] 00:00: 00:00 oral route 00 :00 every day at bedtime for neuropathy atorvastati 2020- No 1{table Q1D take 1 [facility] 20 mg 04-29 t} tablet by [facility] 00:00: 00:00 oral route 00 :00 every day for cholestero l metformin 2020- No 1{table Q12H take 1 [facility] 500 mg 04-29 t} tablet by [facility] 00:00: 00:00 oral route 00 :00 2 times every day with morning and evening meals Lyrica 150 2020- No 1{capsu Q8H take 1 [facility] mg capsule 04-29 le} capsule by [facility] 00:00: 00:00 oral route 00 :00 3 times every day for feet numbness lisinopril 2020- No 1{table Q1D take 1 [facility] 10 mg 04-29 t} tablet by [facility] 00:00: 00:00 oral route 00 :00 every day for blood pressure glimepiride 2020- No take 1 [facility] 1 mg tablet 04-29 tablet by [facility] 00:00: 00:00 oral route 00 :00 every day in the morning with food for diabetes amitriptyli 2020- No 1{table Q1D take 1 [facility] 25 mg 04-29 t} tablet by [facility] 00:00: 00:00 oral route 00 :00 every day at bedtime for neuropathy atorvastati 2020- No 1{table Q1D take 1 [facility] 20 mg 04-29 t} tablet by [facility] 00:00: 00:00 oral route 00 :00 every day for cholestero l metformin 2020- No 1{table Q12H take 1 [facility] 500 mg 04-29 t} tablet by [facility] tablet 00:00: 00:00 oral route 00 :00 2 times every day with morning and evening meals Lyrica 150 2020- No 1{capsu Q8H take 1 [facility] mg capsule 04-29 le} capsule by [facility] 00:00: 00:00 oral route 00 :00 3 times every day for feet numbness lisinopril 2020- No 1{table Q1D take 1 [facility] 10 mg 04-29 t} tablet by [facility] 00:00: 00:00 oral route 00 :00 every day for blood pressure glimepiride 2020- No take 1 [facility] 1 mg tablet 04-29 tablet by [facility] 00:00: 00:00 oral route 00 :00 every day in the morning with food for diabetes amitriptyli 2020- No 1{table Q1D take 1 [facility] 25 mg 04-29 t} tablet by [facility] 00:00: 00:00 oral route 00 :00 every day at bedtime for neuropathy atorvastati 2020- No 1{table Q1D take 1 [facility] 20 mg 04-29 t} tablet by [facility] 00:00: 00:00 oral route 00 :00 every day for cholestero l metformin 2020- No 1{table Q12H take 1 [facility] 500 mg 04-29 t} tablet by [facility] 00:00: 00:00 oral route 00 :00 2 times every day with morning and evening meals Lyrica 150 2019-0 2020- No 1{capsu Q8H take 1 [facility] mg capsule 04-29 le} capsule by [facility] 00:00: 00:00 oral route 00 :00 3 times every day for feet numbness lisinopril 2020- No 1{table Q1D take 1 [facility] 10 mg 04-29 t} tablet by [facility] 00:00: 00:00 oral route 00 :00 every day for blood pressure glimepiride 2020- No take 1 [facility] 1 mg tablet 04-29 tablet by [facility] 00:00: 00:00 oral route 00 :00 every day in the morning with food for diabetes amitriptyli 2020- No 1{table Q1D take 1 [facility] 25 mg 04-29 t} tablet by [facility] 00:00: 00:00 oral route 00 :00 every day at bedtime for neuropathy atorvastati 2020- No 1{table Q1D take 1 [facility] 20 mg 04-29 t} tablet by [facility] 00:00: 00:00 oral route 00 :00 every day for cholestero l metformin 2020- No 1{table Q12H take 1 [facility] 500 mg 04-29 t} tablet by [facility] 00:00: 00:00 oral route 00 :00 2 times every day with morning and evening meals Lyrica 150 2019-0 2020- No 1{capsu Q8H take 1 [facility] mg capsule 04-29 le} capsule by [facility] 00:00: 00:00 oral route 00 :00 3 times every day for feet numbness lisinopril 2020- No 1{table Q1D take 1 [facility] 10 mg 04-29 t} tablet by [facility] 00:00: 00:00 oral route 00 :00 every day for blood pressure glimepiride 2020- No take 1 [facility] 1 mg tablet 04-29 tablet by [facility] 00:00: 00:00 oral route 00 :00 every day in the morning with food for diabetes amitriptyli 2019-2020- No 1{table Q1D take 1 [facility] 25 mg 04-29 t} tablet by [facility] 00:00: 00:00 oral route 00 :00 every day at bedtime for neuropathy atorvastati 2019-2020- No 1{table Q1D take 1 [facility] 20 mg 04-29 t} tablet by [facility] 00:00: 00:00 oral route 00 :00 every day for cholestero l metformin 2020- No 1{table Q12H take 1 [facility] 500 mg 04-29 t} tablet by [facility] 00:00: 00:00 oral route 00 :00 2 times every day with morning and evening meals Lyrica 150 2019-2020- No 1{capsu Q8H take 1 [facility] mg capsule 04-29 le} capsule by [facility] 00:00: 00:00 oral route 00 :00 3 times every day for feet numbness lisinopril 2020- No 1{table Q1D take 1 [facility] 10 mg 04-29 t} tablet by [facility] 00:00: 00:00 oral route 00 :00 every day for blood pressure glimepiride 2020- No take 1 [facility] 1 mg tablet 04-29 tablet by [facility] 00:00: 00:00 oral route 00 :00 every day in the morning with food for diabetes amitriptyli 2020- No 1{table Q1D take 1 [facility] 25 mg 04-29 t} tablet by [facility] 00:00: 00:00 oral route 00 :00 every day at bedtime for neuropathy atorvastati 2020- No 1{table Q1D take 1 [facility] 20 mg 04-29 t} tablet by [facility] 00:00: 00:00 oral route 00 :00 every day for cholestero l metformin 2020- No 1{table Q12H take 1 [facility] 500 mg 04-29 t} tablet by [facility] 00:00: 00:00 oral route 00 :00 2 times every day with morning and evening meals Lyrica 150 2019-0 2020- No 1{capsu Q8H take 1 [facility] mg capsule 04-29 le} capsule by [facility] 00:00: 00:00 oral route 00 :00 3 times every day for feet numbness lisinopril 2020- No 1{table Q1D take 1 [facility] 10 mg 04-29 t} tablet by [facility] 00:00: 00:00 oral route 00 :00 every day for blood pressure glimepiride 2020- No take 1 [facility] 1 mg tablet 04-29 tablet by [facility] 00:00: 00:00 oral route 00 :00 every day in the morning with food for diabetes amitriptyli 2020- No 1{table Q1D take 1 [facility] 25 mg 04-29 t} tablet by [facility] 00:00: 00:00 oral route 00 :00 every day at bedtime for neuropathy atorvastati 2020- No 1{table Q1D take 1 [facility] 20 mg 04-29 t} tablet by [facility] 00:00: 00:00 oral route 00 :00 every day for cholestero l metformin 2019-2020- No 1{table Q12H take 1 [facility] 500 mg 04-29 t} tablet by [facility] 00:00: 00:00 oral route 00 :00 2 times every day with morning and evening meals Lyrica 150 2019-0 2020- No 1{capsu Q8H take 1 [facility] mg capsule 04-29 le} capsule by [facility] 00:00: 00:00 oral route 00 :00 3 times every day for feet numbness lisinopril 0 2020- No 1{table Q1D take 1 [facility] 10 mg 04-29 t} tablet by [facility] 00:00: 00:00 oral route 00 :00 every day for blood pressure glimepiride 2020- No take 1 [facility] 1 mg tablet 04-29 tablet by [facility] 00:00: 00:00 oral route 00 :00 every day in the morning with food for diabetes amitriptyli 2020- No 1{table Q1D take 1 [facility] 25 mg 04-29 t} tablet by [facility] 00:00: 00:00 oral route 00 :00 every day at bedtime for neuropathy atorvastati 2020- No 1{table Q1D take 1 [facility] 20 mg 04-29 t} tablet by [facility] 00:00: 00:00 oral route 00 :00 every day for cholestero l metformin 2020- No 1{table Q12H take 1 [facility] 500 mg 04-29 t} tablet by [facility] 00:00: 00:00 oral route 00 :00 2 times every day with morning and evening meals Lyrica 150 2020- No 1{capsu Q8H take 1 [facility] mg capsule 04-29 le} capsule by [facility] 00:00: 00:00 oral route 00 :00 3 times every day for feet numbness lisinopril 2020- No 1{table Q1D take 1 [facility] 10 mg 04-29 t} tablet by [facility] 00:00: 00:00 oral route 00 :00 every day for blood pressure glimepiride 2020- No take 1 [facility] 1 mg tablet 04-29 tablet by [facility] 00:00: 00:00 oral route 00 :00 every day in the morning with food for diabetes amitriptyli 2020- No 1{table Q1D take 1 [facility] 25 mg 04-29 t} tablet by [facility] 00:00: 00:00 oral route 00 :00 every day at bedtime for neuropathy atorvastati 2020- No 1{table Q1D take 1 [facility] 20 mg 04-29 t} tablet by [facility] 00:00: 00:00 oral route 00 :00 every day for cholestero l metformin 2020- No 1{table Q12H take 1 [facility] 500 mg 9-18 01-08 t} tablet by [facility] 00:00: 00:00 oral route 00 :00 2 times every day with morning and evening meals Lyrica 150 2019-0 202- No 1{capsu Q8H take 1 [facility] mg capsule 04-29 le} capsule by [facility] 00:00: 00:00 oral route 00 :00 3 times every day for feet numbness lisinopril 2020- No 1{table Q1D take 1 [facility] 10 mg 04-29 t} tablet by [facility] 00:00: 00:00 oral route 00 :00 every day for blood pressure glimepiride 2020- No take 1 [facility] 1 mg tablet 04-29 tablet by [facility] 00:00: 00:00 oral route 00 :00 every day in the morning with food for diabetes amitriptyli 2020- No 1{table Q1D take 1 [facility] 25 mg 04-29 t} tablet by [facility] 00:00: 00:00 oral route 00 :00 every day at bedtime for neuropathy atorvastati 2019-2020- No 1{table Q1D take 1 [facility] 20 mg 04-29 t} tablet by [facility] 00:00: 00:00 oral route 00 :00 every day for cholestero l metformin 2019-0 2020- No 1{table Q12H take 1 [facility] 500 mg 04-29 t} tablet by [facility] 00:00: 00:00 oral route 00 :00 2 times every day with morning and evening meals Lyrica 150 2019-0 202- No 1{capsu Q8H take 1 [facility] mg capsule 04-29 le} capsule by [facility] 00:00: 00:00 oral route 00 :00 3 times every day for feet numbness lisinopril 0 2020- No 1{table Q1D take 1 [facility] 10 mg 04-29 t} tablet by [facility] 00:00: 00:00 oral route 00 :00 every day for blood pressure glimepiride 2020- No take 1 [facility] 1 mg tablet 04-29 tablet by [facility] 00:00: 00:00 oral route 00 :00 every day in the morning with food for diabetes amitriptyli 2020- No 1{table Q1D take 1 [facility] 25 mg 04-29 t} tablet by [facility] 00:00: 00:00 oral route 00 :00 every day at bedtime for neuropathy atorvastati 2020- No 1{table Q1D take 1 [facility] 20 mg 04-29 t} tablet by [facility] 00:00: 00:00 oral route 00 :00 every day for cholestero l metformin 2020- No 1{table Q12H take 1 [facility] 500 mg 04-29 t} tablet by [facility] 00:00: 00:00 oral route 00 :00 2 times every day with morning and evening meals Lyrica 150 2020- No 1{capsu Q8H take 1 [facility] mg capsule 04-29 le} capsule by [facility] 00:00: 00:00 oral route 00 :00 3 times every day for feet numbness lisinopril 2020- No 1{table Q1D take 1 [facility] 10 mg 04-29 t} tablet by [facility] 00:00: 00:00 oral route 00 :00 every day for blood pressure glimepiride 2020- No take 1 [facility] 1 mg tablet 04-29 tablet by [facility] 00:00: 00:00 oral route 00 :00 every day in the morning with food for diabetes amitriptyli 2020- No 1{table Q1D take 1 [facility] 25 mg 04-29 t} tablet by [facility] 00:00: 00:00 oral route 00 :00 every day at bedtime for neuropathy atorvastati 2020- No 1{table Q1D take 1 [facility] 20 mg 04-29 t} tablet by [facility] tablet 00:00: 00:00 oral route 00 :00 every day for cholestero l atorvastati 2020- No 1{table Q1D take 1 [facility] 20 mg 04-29 t} tablet by [facility] 00:00: 00:00 oral route 00 :00 every day for cholestero l amitriptyli 2020- No 1{table Q1D take 1 [facility] 25 mg 04-29 t} tablet by [facility] 00:00: 00:00 oral route 00 :00 every day at bedtime for neuropathy glimepiride 2020- No take 1 [facility] 1 mg tablet 04-29 tablet by [facility] 00:00: 00:00 oral route 00 :00 every day in the morning with food for diabetes lisinopril 2020- No 1{table Q1D take 1 [facility] 10 mg 04-29 t} tablet by [facility] 00:00: 00:00 oral route 00 :00 every day for blood pressure Lyrica 150 2020- No 1{capsu Q8H take 1 [facility] mg capsule 04-29 le} capsule by [facility] 00:00: 00:00 oral route 00 :00 3 times every day for feet numbness metformin 2020- No 1{table Q12H take 1 [facility] 500 mg 04-29 t} tablet by [facility] tablet 00:00: 00:00 oral route 00 :00 2 times every day with morning and evening meals Lyrica 150 2019-2020- No 1{capsu Q8H take 1 [facility] mg capsule 04-29 le} capsule by [facility] 00:00: 00:00 oral route 00 :00 3 times every day for feet numbness metformin 2020- No 1{table Q12H take 1 [facility] 500 mg 04-29 t} tablet by [facility] 00:00: 00:00 oral route 00 :00 2 times every day with morning and evening meals atorvastati 2020- No 1{table Q1D take 1 [facility] 20 mg 04-29 t} tablet by [facility] 00:00: 00:00 oral route 00 :00 every day for cholestero l lisinopril 2020- No 1{table Q1D take 1 [facility] 10 mg 04-29 t} tablet by [facility] tablet 00:00: 00:00 oral route 00 :00 every day for blood pressure glimepiride 2020- No take 1 [facility] 1 mg tablet 04-29 tablet by [facility] 00:00: 00:00 oral route 00 :00 every day in the morning with food for diabetes amitriptyli 2020- No 1{table Q1D take 1 [facility] 25 mg 04-29 t} tablet by [facility] 00:00: 00:00 oral route 00 :00 every day at bedtime for neuropathy aspirin 81 No take 1 [facility] mg 6-19 tablet by [facility],[place]gang 00:00: oral route yed release 00 every day at bedtime for heart aspirin 81 2019-0 No take 1 [facility] mg 6-19 tablet by [facility] tablet,[place]gang 00:00: oral route yed release 00 every day at bedtime for heart aspirin 81 2019-0 2020- No take 1 [facility] mg -30 08- tablet by [facility] tablet,[place] 00:00: 00:00 oral route yed release 00 :00 every day at bedtime for heart aspirin 81 2019-0 2020- No take 1 [facility] mg -30 08- tablet by [facility] tablet,[place] 00:00: 00:00 oral route yed release 00 :00 every day at bedtime for heart aspirin 81 2019-0 2020- No take 1 [facility] mg -30 08- tablet [facility],[place] 00:00: 00:00 oral route yed release 00 :00 every day at bedtime for heart aspirin 81 2019-0 2020- No take 1 [facility] mg -30 08- tablet [facility] tablet,[place] 00:00: 00:00 oral route yed release 00 :00 every day at bedtime for heart aspirin 81 2020-0 2020- No take 1 [facility] mg 6-19 - tablet by [facility],[place] 00:00: 00:00 oral route yed release 00 :00 every day at bedtime for heart aspirin 81 2019-0 202- No take 1 [facility] mg -08-19 tablet by [facility] tablet,[place] 00:00: 00:00 oral route yed release 00 :00 every day at bedtime for heart aspirin 81 2020-0 2021- No take 1 [facility] mg 6-08-19 tablet by [facility] tablet,[place] 00:00: 00:00 oral route yed release 00 :00 every day at bedtime for heart aspirin 81 2020-0 2020- No take 1 [facility] mg -08-19 tablet by [facility],[place] 00:00: 00:00 oral route yed release 00 :00 every day at bedtime for heart aspirin 81 2020-0 2020- No take 1 [facility] mg -08-19 tablet by [facility] tablet,[place] 00:00: 00:00 oral route yed release 00 :00 every day at bedtime for heart aspirin 81 2020-0 2020- No take 1 [facility] mg -08-19 tablet by [facility] tablet,[place] 00:00: 00:00 oral route yed release 00 :00 every day at bedtime for heart aspirin 81 2020-0 2020- No take 1 [facility] mg 01-28 tablet by [facility] tablet,[place] 00:00: 00:00 oral route yed release 00 :00 every day at bedtime for heart aspirin 81 2020-0 2021- No take 1 [facility] mg -08-19 tablet by [facility] tablet,[place] 00:00: 00:00 oral route yed release 00 :00 every day at bedtime for heart aspirin 81 2020-0 202- No take 1 [facility] mg -08-19 tablet by [facility] tablet,[place] 00:00: 00:00 oral route yed release 00 :00 every day at bedtime for heart aspirin 81 2020-0 2021- No take 1 [facility] mg 6-08-19 tablet by [facility] tablet,[place] 00:00: 00:00 oral route yed release 00 :00 every day at bedtime for heart aspirin 81 2020-0 202- No take 1 [facility] mg 6-08-19 tablet by [facility] tablet,[place] 00:00: 00:00 oral route yed release 00 :00 every day at bedtime for heart aspirin 81 2019-0 2020- No take 1 [facility] mg -08-19 tablet by [facility] tablet,[place] 00:00: 00:00 oral route yed release 00 :00 every day at bedtime for heart aspirin 81 2019-0 2020- No take 1 [facility] mg 01-28 tablet by [facility] tablet,[place] 00:00: 00:00 oral route yed release 00 :00 every day at bedtime for heart aspirin 81 2019-0 2020- No take 1 [facility] mg 01-28 tablet by [facility] tablet,[place] 00:00: 00:00 oral route yed release 00 :00 every day at bedtime for heart aspirin 81 2020-0 2020- No take 1 [facility] mg 01-28 tablet by [facility] tablet,[place] 00:00: 00:00 oral route yed release 00 :00 every day at bedtime for heart aspirin 81 2019-0 2020- No take 1 [facility] mg 01-28 tablet by [facility] tablet,[place] 00:00: 00:00 oral route yed release 00 :00 every day at bedtime for heart atorvastati 2019-0 2020- No 1{table Q1D take 1 [facility] 20 mg 01-28 t} tablet by [facility] tablet 00:00: 00:00 oral route 00 :00 every day for cholestero l amitriptyli 2019-0 2020- No 1{table Q1D take 1 [facility] ne 25 mg 01-28 t} tablet by [facility] tablet 00:00: 00:00 oral route 00 :00 every day at bedtime for neuropathy metformin 2019-0 2020- No 1{table Q12H take 1 [facility] 500 mg 01-28 t} tablet by [facility] tablet 00:00: 00:00 oral route 00 :00 2 times every day with morning and evening meals lisinopril 2019-0 2020- No 1{table Q1D take 1 [facility] 10 mg 01-28 t} tablet by [facility] tablet 00:00: 00:00 oral route 00 :00 every day for blood pressure glimepiride 2019-0 2020- No take 1 [facility] 1 mg tablet 01-28 tablet by [facility] 00:00: 00:00 oral route 00 :00 every day in the morning with food for diabetes Lyrica 150 2020-0 2020- No 1{capsu Q8H take 1 new [facility] mg capsule 01-28 le} capsule by [facility] 00:00: 00:00 oral route dosing 00 :00 3 times every day for feet numbness atorvastati 2019-0 2020- No 1{table Q1D take 1 [facility] 20 mg 01-28 t} tablet by [facility] tablet 00:00: 00:00 oral route 00 :00 every day for cholestero l amitriptyli 2019-0 2020- No 1{table Q1D take 1 [facility] 25 mg 01-28 t} tablet by [facility] tablet 00:00: 00:00 oral route 00 :00 every day at bedtime for neuropathy metformin 2019-0 2020- No 1{table Q12H take 1 [facility] 500 mg 01-28 t} tablet by [facility] tablet 00:00: 00:00 oral route 00 :00 2 times every day with morning and evening meals lisinopril 2019-0 2020- No 1{table Q1D take 1 [facility] 10 mg 01-28 t} tablet by [facility] tablet 00:00: 00:00 oral route 00 :00 every day for blood pressure glimepiride 2019-0 2020- No take 1 [facility] 1 mg tablet 01-28 tablet by [facility] 00:00: 00:00 oral route 00 :00 every day in the morning with food for diabetes Lyrica 150 2020-0 2020- No 1{capsu Q8H take 1 new [facility] mg capsule 01-28 le} capsule by [facility] 00:00: 00:00 oral route dosing 00 :00 3 times every day for feet numbness atorvastati 2019-0 2020- No 1{table Q1D take 1 [facility] 20 mg 01-28 t} tablet by [facility] tablet 00:00: 00:00 oral route 00 :00 every day for cholestero l amitriptyli 2019-0 2020- No 1{table Q1D take 1 [facility] 25 mg 6-30 04-18 t} tablet by [facility] tablet 00:00: 00:00 oral route 00 :00 every day at bedtime for neuropathy Lyrica 150 2019-0 2020- No 1{capsu Q8H take 1 new [facility] mg capsule 01-28 le} capsule by [facility] 00:00: 00:00 oral route dosing 00 :00 3 times every day for feet numbness glimepiride 2019- No take 1 [facility] 1 mg tablet 01-28 tablet by [facility] 00:00: 00:00 oral route 00 :00 every day in the morning with food for diabetes lisinopril 2020- No 1{table Q1D take 1 [facility] 10 mg 01-2818 t} tablet by [facility] tablet 00:00: 00:00 oral route 00 :00 every day for blood pressure metformin 2019-0 2020- No 1{table Q12H take 1 [facility] 500 mg 01-2818 t} tablet by [facility] tablet 00:00: 00:00 oral route 00 :00 2 times every day with morning and evening meals atorvastati 2019-0 2020- No 1{table Q1D take 1 [facility] 20 mg 01-2818 t} tablet by [facility] tablet 00:00: 00:00 oral route 00 :00 every day for cholestero l amitriptyli 2019-0 2020- No 1{table Q1D take 1 [facility] 25 mg 01-2818 t} tablet by [facility] tablet 00:00: 00:00 oral route 00 :00 every day at bedtime for neuropathy metformin 2019-0 2020- No 1{table Q12H take 1 [facility] 500 mg 01-2818 t} tablet by [facility] tablet 00:00: 00:00 oral route 00 :00 2 times every day with morning and evening meals lisinopril 2019-0 2020- No 1{table Q1D take 1 [facility] 10 mg 01-28-18 t} tablet by [facility] tablet 00:00: 00:00 oral route 00 :00 every day for blood pressure glimepiride 2019-0 2020- No take 1 [facility] 1 mg tablet 01-28 tablet by [facility] 00:00: 00:00 oral route 00 :00 every day in the morning with food for diabetes Lyrica 150 2020-0 2020- No 1{capsu Q8H take 1 new [facility] mg capsule 01-28 le} capsule by [facility] 00:00: 00:00 oral route dosing 00 :00 3 times every day for feet numbness atorvastati 2019-0 2020- No 1{table Q1D take 1 [facility] 20 mg 01-28 t} tablet by [facility] tablet 00:00: 00:00 oral route 00 :00 every day for cholestero l amitriptyli 2019-0 2020- No 1{table Q1D take 1 [facility] 25 mg 01-28 t} tablet by [facility] tablet 00:00: 00:00 oral route 00 :00 every day at bedtime for neuropathy atorvastati 2019-0 2020- No 1{table Q1D take 1 [facility] 20 mg 01-28 t} tablet by [facility] tablet 00:00: 00:00 oral route 00 :00 every day for cholestero l amitriptyli 2020-0 2020- No 1{table Q1D take 1 [facility] 25 mg 01-28 t} tablet by [facility] tablet 00:00: 00:00 oral route 00 :00 every day at bedtime for neuropathy Lyrica 150 2020-0 2020- No 1{capsu Q8H take 1 new [facility] mg capsule 01-28 le} capsule by [facility] 00:00: 00:00 oral route dosing 00 :00 3 times every day for feet numbness glimepiride 2019-0 2020- No take 1 [facility] 1 mg tablet 01-28 tablet by [facility] 00:00: 00:00 oral route 00 :00 every day in the morning with food for diabetes lisinopril 2020-0 2020- No 1{table Q1D take 1 [facility] 10 mg 01-28 t} tablet by [facility] tablet 00:00: 00:00 oral route 00 :00 every day for blood pressure metformin 2019-0 2020- No 1{table Q12H take 1 [facility] 500 mg -18 t} tablet by [facility] tablet 00:00: 00:00 oral route 00 :00 2 times every day with morning and evening meals metformin 2019-0 2020- No 1{table Q12H take 1 [facility] 500 mg -30 04-18 t} tablet by [facility] tablet 00:00: 00:00 oral route 00 :00 2 times every day with morning and evening meals lisinopril 2019-0 2020- No 1{table Q1D take 1 [facility] 10 mg 01-2818 t} tablet by [facility] tablet 00:00: 00:00 oral route 00 :00 every day for blood pressure glimepiride 2019-0 2020- No take 1 [facility] 1 mg tablet 01-28 tablet by [facility] 00:00: 00:00 oral route 00 :00 every day in the morning with food for diabetes Lyrica 150 2019-0 2020- No 1{capsu Q8H take 1 new [facility] mg capsule 01-28 le} capsule by [facility] 00:00: 00:00 oral route dosing 00 :00 3 times every day for feet numbness atorvastati 2019-0 2020- No 1{table Q1D take 1 [facility] 20 mg -18 t} tablet by [facility] tablet 00:00: 00:00 oral route 00 :00 every day for cholestero l amitriptyli 2019-0 2020- No 1{table Q1D take 1 [facility] 25 mg 01-2818 t} tablet by [facility] tablet 00:00: 00:00 oral route 00 :00 every day at bedtime for neuropathy metformin 2019-0 2020- No 1{table Q12H take 1 [facility] 500 mg -18 t} tablet by [facility] tablet 00:00: 00:00 oral route 00 :00 2 times every day with morning and evening meals lisinopril 2019-0 2020- No 1{table Q1D take 1 [facility] 10 mg -30 04-18 t} tablet by [facility] tablet 00:00: 00:00 oral route 00 :00 every day for blood pressure glimepiride 2019-0 2020- No take 1 [facility] 1 mg tablet 01-28 tablet by [facility] 00:00: 00:00 oral route 00 :00 every day in the morning with food for diabetes Lyrica 150 2020-0 2020- No 1{capsu Q8H take 1 new [facility] mg capsule 01-28 le} capsule by [facility] 00:00: 00:00 oral route dosing 00 :00 3 times every day for feet numbness atorvastati 2020-0 2020- No 1{table Q1D take 1 [facility] 20 mg 01-28 t} tablet by [facility] tablet 00:00: 00:00 oral route 00 :00 every day for cholestero l amitriptyli 2019-0 2020- No 1{table Q1D take 1 [facility] 25 mg 01-28 t} tablet by [facility] tablet 00:00: 00:00 oral route 00 :00 every day at bedtime for neuropathy metformin 2019-0 2020- No 1{table Q12H take 1 [facility] 500 mg 01-28 t} tablet by [facility] tablet 00:00: 00:00 oral route 00 :00 2 times every day with morning and evening meals lisinopril 2019-0 2020- No 1{table Q1D take 1 [facility] 10 mg 01-28 t} tablet by [facility] tablet 00:00: 00:00 oral route 00 :00 every day for blood pressure glimepiride 2019-0 2020- No take 1 [facility] 1 mg tablet 01-28 tablet by [facility] 00:00: 00:00 oral route 00 :00 every day in the morning with food for diabetes Lyrica 150 2020-0 2020- No 1{capsu Q8H take 1 new [facility] mg capsule 01-28 le} capsule by [facility] 00:00: 00:00 oral route dosing 00 :00 3 times every day for feet numbness atorvastati 2020-0 2020- No 1{table Q1D take 1 [facility] 20 mg 01-28 t} tablet by [facility] tablet 00:00: 00:00 oral route 00 :00 every day for cholestero l amitriptyli 2020-0 2020- No 1{table Q1D take 1 [facility] 25 mg 01-2818 t} tablet by [facility] tablet 00:00: 00:00 oral route 00 :00 every day at bedtime for neuropathy metformin 2019-0 2020- No 1{table Q12H take 1 [facility] 500 mg 01-2818 t} tablet by [facility] tablet 00:00: 00:00 oral route 00 :00 2 times every day with morning and evening meals lisinopril 2019-0 2020- No 1{table Q1D take 1 [facility] 10 mg 01-2818 t} tablet by [facility] tablet 00:00: 00:00 oral route 00 :00 every day for blood pressure glimepiride 2020- No take 1 [facility] 1 mg tablet 01-28 tablet by [facility] 00:00: 00:00 oral route 00 :00 every day in the morning with food for diabetes Lyrica 150 2019- 2020- No 1{capsu Q8H take 1 new [facility] mg capsule 01-28 le} capsule by [facility] 00:00: 00:00 oral route dosing 00 :00 3 times every day for feet numbness atorvastati 2019-0 2020- No 1{table Q1D take 1 [facility] 20 mg 01-2818 t} tablet by [facility] tablet 00:00: 00:00 oral route 00 :00 every day for cholestero l amitriptyli 2019-0 2020- No 1{table Q1D take 1 [facility] 25 mg 01-2818 t} tablet by [facility] tablet 00:00: 00:00 oral route 00 :00 every day at bedtime for neuropathy metformin 2019-0 2020- No 1{table Q12H take 1 [facility] 500 mg 01-2818 t} tablet by [facility] tablet 00:00: 00:00 oral route 00 :00 2 times every day with morning and evening meals lisinopril 2019-0 2020- No 1{table Q1D take 1 [facility] 10 mg -30 04-18 t} tablet by [facility] tablet 00:00: 00:00 oral route 00 :00 every day for blood pressure glimepiride 2019-0 2020- No take 1 [facility] 1 mg tablet 01-28 tablet by [facility] 00:00: 00:00 oral route 00 :00 every day in the morning with food for diabetes Lyrica 150 2020-0 2020- No 1{capsu Q8H take 1 new [facility] mg capsule 01-28 le} capsule by [facility] 00:00: 00:00 oral route dosing 00 :00 3 times every day for feet numbness atorvastati 2019-0 2020- No 1{table Q1D take 1 [facility] 20 mg 01-28 t} tablet by [facility] tablet 00:00: 00:00 oral route 00 :00 every day for cholestero l amitriptyli 2019-0 2020- No 1{table Q1D take 1 [facility] 25 mg 01-28 t} tablet by [facility] tablet 00:00: 00:00 oral route 00 :00 every day at bedtime for neuropathy metformin 2019-0 2020- No 1{table Q12H take 1 [facility] 500 mg 01-28 t} tablet by [facility] tablet 00:00: 00:00 oral route 00 :00 2 times every day with morning and evening meals lisinopril 2019-0 2020- No 1{table Q1D take 1 [facility] 10 mg 01-28 t} tablet by [facility] tablet 00:00: 00:00 oral route 00 :00 every day for blood pressure glimepiride 2019-0 2020- No take 1 [facility] 1 mg tablet 01-28 tablet by [facility] 00:00: 00:00 oral route 00 :00 every day in the morning with food for diabetes Lyrica 150 2020-0 2020- No 1{capsu Q8H take 1 new [facility] mg capsule 01-28 le} capsule by [facility] 00:00: 00:00 oral route dosing 00 :00 3 times every day for feet numbness atorvastati 2019-0 2020- No 1{table Q1D take 1 [facility] 20 mg 01-28 t} tablet by [facility] tablet 00:00: 00:00 oral route 00 :00 every day for cholestero l amitriptyli 2019-0 2020- No 1{table Q1D take 1 [facility] 25 mg -18 t} tablet by [facility] tablet 00:00: 00:00 oral route 00 :00 every day at bedtime for neuropathy metformin 2019-0 2020- No 1{table Q12H take 1 [facility] 500 mg -18 t} tablet by [facility] tablet 00:00: 00:00 oral route 00 :00 2 times every day with morning and evening meals lisinopril 0 2020- No 1{table Q1D take 1 [facility] 10 mg -18 t} tablet by [facility] tablet 00:00: 00:00 oral route 00 :00 every day for blood pressure glimepiride 2020- No take 1 [facility] 1 mg tablet 01-2818 tablet by [facility] 00:00: 00:00 oral route 00 :00 every day in the morning with food for diabetes Lyrica 150 2019- 2020- No 1{capsu Q8H take 1 new [facility] mg capsule 01-28 le} capsule by [facility] 00:00: 00:00 oral route dosing 00 :00 3 times every day for feet numbness atorvastati 2020- No 1{table Q1D take 1 [facility] 20 mg -18 t} tablet by [facility] tablet 00:00: 00:00 oral route 00 :00 every day for cholestero l amitriptyli 2019-0 2020- No 1{table Q1D take 1 [facility] 25 mg 01-2818 t} tablet by [facility] tablet 00:00: 00:00 oral route 00 :00 every day at bedtime for neuropathy metformin 2019-0 2020- No 1{table Q12H take 1 [facility] 500 mg 01-2818 t} tablet by [facility] tablet 00:00: 00:00 oral route 00 :00 2 times every day with morning and evening meals lisinopril 2019-0 2020- No 1{table Q1D take 1 [facility] 10 mg -18 t} tablet by [facility] tablet 00:00: 00:00 oral route 00 :00 every day for blood pressure glimepiride 0 2020- No take 1 [facility] 1 mg tablet 01-28 tablet by [facility] 00:00: 00:00 oral route 00 :00 every day in the morning with food for diabetes Lyrica 150 2020-0 2020- No 1{capsu Q8H take 1 new [facility] mg capsule 01-28 le} capsule by [facility] 00:00: 00:00 oral route dosing 00 :00 3 times every day for feet numbness atorvastati 2020-0 2020- No 1{table Q1D take 1 [facility] 20 mg 01-28 t} tablet by [facility] tablet 00:00: 00:00 oral route 00 :00 every day for cholestero l amitriptyli 2020-0 2020- No 1{table Q1D take 1 [facility] 25 mg 01-28 t} tablet by [facility] tablet 00:00: 00:00 oral route 00 :00 every day at bedtime for neuropathy metformin 2020-0 2020- No 1{table Q12H take 1 [facility] 500 mg 01-28 t} tablet by [facility] tablet 00:00: 00:00 oral route 00 :00 2 times every day with morning and evening meals lisinopril 2020-0 2020- No 1{table Q1D take 1 [facility] 10 mg 01-28 t} tablet by [facility] tablet 00:00: 00:00 oral route 00 :00 every day for blood pressure glimepiride 2019-0 2020- No take 1 [facility] 1 mg tablet 01-28 tablet by [facility] 00:00: 00:00 oral route 00 :00 every day in the morning with food for diabetes Lyrica 150 2020-0 2020- No 1{capsu Q8H take 1 new [facility] mg capsule 01-28 le} capsule by [facility] 00:00: 00:00 oral route dosing 00 :00 3 times every day for feet numbness atorvastati 2020-0 2020- No 1{table Q1D take 1 [facility] 20 mg 01-28 t} tablet by [facility] tablet 00:00: 00:00 oral route 00 :00 every day for cholestero l amitriptyli 2020-0 2020- No 1{table Q1D take 1 [facility] 25 mg 01-2818 t} tablet by [facility] tablet 00:00: 00:00 oral route 00 :00 every day at bedtime for neuropathy metformin 2019-0 2020- No 1{table Q12H take 1 [facility] 500 mg 01-2818 t} tablet by [facility] tablet 00:00: 00:00 oral route 00 :00 2 times every day with morning and evening meals lisinopril 2019-0 2020- No 1{table Q1D take 1 [facility] 10 mg 01-2818 t} tablet by [facility] tablet 00:00: 00:00 oral route 00 :00 every day for blood pressure glimepiride 0 2020- No take 1 [facility] 1 mg tablet 01-28 tablet by [facility] 00:00: 00:00 oral route 00 :00 every day in the morning with food for diabetes Lyrica 150 2019-0 2020- No 1{capsu Q8H take 1 new [facility] mg capsule 01-28 le} capsule by [facility] 00:00: 00:00 oral route dosing 00 :00 3 times every day for feet numbness atorvastati 2019-0 2020- No 1{table Q1D take 1 [facility] 20 mg 01-28 t} tablet by [facility] tablet 00:00: 00:00 oral route 00 :00 every day for cholestero l amitriptyli 2019-0 2020- No 1{table Q1D take 1 [facility] 25 mg 01-28 t} tablet by [facility] tablet 00:00: 00:00 oral route 00 :00 every day at bedtime for neuropathy metformin 2019-0 2020- No 1{table Q12H take 1 [facility] 500 mg 01-28 t} tablet by [facility] tablet 00:00: 00:00 oral route 00 :00 2 times every day with morning and evening meals lisinopril 2019-0 2020- No 1{table Q1D take 1 [facility] 10 mg 01-2818 t} tablet by [facility] tablet 00:00: 00:00 oral route 00 :00 every day for blood pressure glimepiride 2019-0 2020- No take 1 [facility] 1 mg tablet 01-28 tablet by [facility] 00:00: 00:00 oral route 00 :00 every day in the morning with food for diabetes Lyrica 150 2020-0 2020- No 1{capsu Q8H take 1 new [facility] mg capsule 01-28 le} capsule by [facility] 00:00: 00:00 oral route dosing 00 :00 3 times every day for feet numbness atorvastati 2020-0 2020- No 1{table Q1D take 1 [facility] 20 mg 01-28 t} tablet by [facility] tablet 00:00: 00:00 oral route 00 :00 every day for cholestero l amitriptyli 2020-0 2020- No 1{table Q1D take 1 [facility] 25 mg 01-28 t} tablet by [facility] tablet 00:00: 00:00 oral route 00 :00 every day at bedtime for neuropathy metformin 2020-0 2020- No 1{table Q12H take 1 [facility] 500 mg 01-28 t} tablet by [facility] tablet 00:00: 00:00 oral route 00 :00 2 times every day with morning and evening meals lisinopril 2020-0 2020- No 1{table Q1D take 1 [facility] 10 mg 01-28 t} tablet by [facility] tablet 00:00: 00:00 oral route 00 :00 every day for blood pressure glimepiride 2019-0 2020- No take 1 [facility] 1 mg tablet 01-28 tablet by [facility] 00:00: 00:00 oral route 00 :00 every day in the morning with food for diabetes Lyrica 150 2020-0 2020- No 1{capsu Q8H take 1 new [facility] mg capsule 01-28 le} capsule by [facility] 00:00: 00:00 oral route dosing 00 :00 3 times every day for feet numbness atorvastati 2020-0 2020- No 1{table Q1D take 1 [facility] 20 mg 01-28 t} tablet by [facility] tablet 00:00: 00:00 oral route 00 :00 every day for cholestero l amitriptyli 2020-0 2020- No 1{table Q1D take 1 [facility] 25 mg 6-19 09-18 t} tablet by [facility] tablet 00:00: 00:00 oral route 00 :00 every day at bedtime for neuropathy metformin 2019-0 2020- No 1{table Q12H take 1 [facility] 500 mg 01-2818 t} tablet by [facility] tablet 00:00: 00:00 oral route 00 :00 2 times every day with morning and evening meals lisinopril 2019-0 2020- No 1{table Q1D take 1 [facility] 10 mg 01-2818 t} tablet by [facility] tablet 00:00: 00:00 oral route 00 :00 every day for blood pressure glimepiride 2019-0 2020- No take 1 [facility] 1 mg tablet 01-28 tablet by [facility] 00:00: 00:00 oral route 00 :00 every day in the morning with food for diabetes Lyrica 150 2019-0 2020- No 1{capsu Q8H take 1 new [facility] mg capsule 01-28 le} capsule by [facility] 00:00: 00:00 oral route dosing 00 :00 3 times every day for feet numbness atorvastati 2019-0 2020- No 1{table Q1D take 1 [facility] 20 mg 01-28 t} tablet by [facility] tablet 00:00: 00:00 oral route 00 :00 every day for cholestero l amitriptyli 2019-0 2020- No 1{table Q1D take 1 [facility] 25 mg 01-28 t} tablet by [facility] tablet 00:00: 00:00 oral route 00 :00 every day at bedtime for neuropathy metformin 2019-0 2020- No 1{table Q12H take 1 [facility] 500 mg 01-28 t} tablet by [facility] tablet 00:00: 00:00 oral route 00 :00 2 times every day with morning and evening meals lisinopril 2019-0 2020- No 1{table Q1D take 1 [facility] 10 mg 01-2818 t} tablet by [facility] tablet 00:00: 00:00 oral route 00 :00 every day for blood pressure glimepiride 2019-0 2020- No take 1 [facility] 1 mg tablet 6-19 09-18 tablet by [facility] 00:00: 00:00 oral route 00 :00 every day in the morning with food for diabetes Lyrica 150 2020-0 2020- No 1{capsu Q8H take 1 new [facility] mg capsule 01-28 le} capsule by [facility] 00:00: 00:00 oral route dosing 00 :00 3 times every day for feet numbness atorvastati 2020-0 2020- No 1{table Q1D take 1 [facility] 20 mg 01-28 t} tablet by [facility] tablet 00:00: 00:00 oral route 00 :00 every day for cholestero l amitriptyli 2020-0 2020- No 1{table Q1D take 1 [facility] 25 mg 01-28 t} tablet by [facility] tablet 00:00: 00:00 oral route 00 :00 every day at bedtime for neuropathy amitriptyli 2020-0 2020- No 1{table Q1D take 1 [facility] 25 mg 01-28 t} tablet by [facility] tablet 00:00: 00:00 oral route 00 :00 every day at bedtime for neuropathy atorvastati 2019-0 2020- No 1{table Q1D take 1 [facility] 20 mg 01-28 t} tablet by [facility] tablet 00:00: 00:00 oral route 00 :00 every day for cholestero l Lyrica 150 2020-0 2020- No 1{capsu Q8H take 1 new [facility] mg capsule 01-28 le} capsule by [facility] 00:00: 00:00 oral route dosing 00 :00 3 times every day for feet numbness glimepiride 2019-0 2020- No take 1 [facility] 1 mg tablet 01-28 tablet by [facility] 00:00: 00:00 oral route 00 :00 every day in the morning with food for diabetes lisinopril 2020-0 2020- No 1{table Q1D take 1 [facility] 10 mg 01-28 t} tablet by [facility] tablet 00:00: 00:00 oral route 00 :00 every day for blood pressure metformin 2020-0 2020- No 1{table Q12H take 1 [facility] 500 mg 6-19 09-18 t} tablet by [facility] tablet 00:00: 00:00 oral route 00 :00 2 times every day with morning and evening meals atorvastati 2019-0 2020- No 1{table Q1D take 1 [facility] 20 mg 01-2818 t} tablet by [facility] tablet 00:00: 00:00 oral route 00 :00 every day for cholestero l amitriptyli 2019-0 2020- No 1{table Q1D take 1 [facility] 25 mg 01-2818 t} tablet by [facility] tablet 00:00: 00:00 oral route 00 :00 every day at bedtime for neuropathy Lyrica 150 2019- 2020- No 1{capsu Q8H take 1 new [facility] mg capsule 01-28 le} capsule by [facility] 00:00: 00:00 oral route dosing 00 :00 3 times every day for feet numbness glimepiride 2020- No take 1 [facility] 1 mg tablet 01-28 tablet by [facility] 00:00: 00:00 oral route 00 :00 every day in the morning with food for diabetes lisinopril 2019-0 2020- No 1{table Q1D take 1 [facility] 10 mg 01-2818 t} tablet by [facility] tablet 00:00: 00:00 oral route 00 :00 every day for blood pressure metformin 2019-0 2020- No 1{table Q12H take 1 [facility] 500 mg 01-2818 t} tablet by [facility] tablet 00:00: 00:00 oral route 00 :00 2 times every day with morning and evening meals metformin 2019-0 2020- No 1{table Q12H take 1 [facility] 500 mg 01-2818 t} tablet by [facility] tablet 00:00: 00:00 oral route 00 :00 2 times every day with morning and evening meals lisinopril 2019-0 2020- No 1{table Q1D take 1 [facility] 10 mg -18 t} tablet by [facility] 00:00: 00:00 oral route 00 :00 every day for blood pressure glimepiride 2020- No take 1 [facility] 1 mg tablet 01-28 tablet by [facility] 00:00: 00:00 oral route 00 :00 every day in the morning with food for diabetes [place] 150 2020-0 2020- No 1{capsu Q8H take 1 new [facility] mg capsule 01-28 le} capsule by [facility] 00:00: 00:00 oral route dosing 00 :00 3 times every day for feet numbness [place] 5 2019-0 2020- No 1{table Q1D take 1 [facility] mg tablet 01-28 t} tablet by [facility] 00:00: 00:00 oral route 00 :00 every day [place] 5 2019-0 2020- No 1{table Q1D take 1 [facility] mg tablet 01-28 t} tablet by [facility] 00:00: 00:00 oral route 00 :00 every day [place] 5 2019-0 2020- No 1{table Q1D take 1 [facility] mg tablet 01-28 t} tablet by [facility] 00:00: 00:00 oral route 00 :00 every day [place] 5 2019-0 2020- No 1{table Q1D take 1 [facility] mg tablet 01-28 t} tablet by [facility] 00:00: 00:00 oral route 00 :00 every day [place] 5 2020-0 2020- No 1{table Q1D take 1 [facility] mg tablet 01-28 t} tablet by [facility] 00:00: 00:00 oral route 00 :00 every day [place] 5 2020-0 2020- No 1{table Q1D take 1 [facility] mg tablet 01-28 t} tablet by [facility] 00:00: 00:00 oral route 00 :00 every day [place] 5 2020-0 2020- No 1{table Q1D take 1 [facility] mg tablet 01-2819 t} tablet by [facility] 00:00: 00:00 oral route 00 :00 every day [place] 5 2020-0 2020- No 1{table Q1D take 1 [facility] mg tablet 01-28-19 t} tablet by [facility] 00:00: 00:00 oral route 00 :00 every day [place] 5 2020-0 2020- No 1{table Q1D take 1 [facility] mg tablet 01-2819 t} tablet by [facility] 00:00: 00:00 oral route 00 :00 every day [place] 5 2020-0 2020- No 1{table Q1D take 1 [facility] mg tablet 6- 06-19 t} tablet by [facility] 00:00: 00:00 oral route 00 :00 every day [place] 5 2020-0 2020- No 1{table Q1D take 1 [facility] mg tablet 6-19 06-19 t} tablet by [facility] 00:00: 00:00 oral route 00 :00 every day [place] 5 2020-0 2020- No 1{table Q1D take 1 [facility] mg tablet 6-28 01-19 t} tablet by [facility] 00:00: 00:00 oral route 00 :00 every day [place] 5 2020-0 2020- No 1{table Q1D take 1 [facility] mg tablet 6-19 06-19 t} tablet by [facility] 00:00: 00:00 oral route 00 :00 every day [place] 5 2020-0 2020- No 1{table Q1D take 1 [facility] mg tablet 6-28 01-19 t} tablet by [facility] 00:00: 00:00 oral route 00 :00 every day [place] 5 2020-0 2020- No 1{table Q1D take 1 [facility] mg tablet 6- 06-19 t} tablet by [facility] 00:00: 00:00 oral route 00 :00 every day [place] 5 2020-0 2020- No 1{table Q1D take 1 [facility] mg tablet 6-19 06-19 t} tablet by [facility] 00:00: 00:00 oral route 00 :00 every day [place] 5 2020-0 2020- No 1{table Q1D take 1 [facility] mg tablet 6- 06-19 t} tablet by [facility] 00:00: 00:00 oral route 00 :00 every day [place] 5 2020-0 2020- No 1{table Q1D take 1 [facility] mg tablet 6-19 06-19 t} tablet by [facility] 00:00: 00:00 oral route 00 :00 every day [place] 5 2020-0 2020- No 1{table Q1D take 1 [facility] mg tablet 6-19 06-19 t} tablet by [facility] 00:00: 00:00 oral route 00 :00 every day [place] 5 2020-0 2020- No 1{table Q1D take 1 [facility] mg tablet 6- 06-19 t} tablet by [facility] 00:00: 00:00 oral route 00 :00 every day [place] 5 2020-0 2020- No 1{table Q1D take 1 [facility] mg tablet 6-28 01-19 t} tablet by [facility] 00:00: 00:00 oral route 00 :00 every day [place] 5 2020-0 2020- No 1{table Q1D take 1 [facility] mg tablet 6-28 01-19 t} tablet by [facility] 00:00: 00:00 oral route 00 :00 every day [place] 5 2020-0 2020- No 1{table Q1D take 1 [facility] mg tablet 6-28 01-19 t} tablet by [facility] 00:00: 00:00 oral route 00 :00 every day [place] 2020-0 2020- No 1{table Q1D take 1 [facility] mg tablet 6-28 01-19 t} tablet by [facility] 00:00: 00:00 oral route 00 :00 every day [place] 5 2020-0 2020- No 1{table Q1D take 1 [facility] mg tablet 6-28 01-19 t} tablet by [facility] 00:00: 00:00 oral route 00 :00 every day [place] 5 2020-0 2020- No 1{table Q1D take 1 [facility] mg tablet 6-28 01-19 t} tablet by [facility] 00:00: 00:00 oral route 00 :00 every day [place] 5 2020-0 2020- No 1{table Q1D take 1 [facility] mg tablet 6-28 01-19 t} tablet by [facility] 00:00: 00:00 oral route 00 :00 every day [place] 5 2020-0 2020- No 1{table Q1D take 1 [facility] mg tablet 6-28 01-19 t} tablet by [facility] 00:00: 00:00 oral route 00 :00 every day [place] 5 2020-0 2020- No 1{table Q1D take 1 [facility] mg tablet 6-19 06-19 t} tablet by [facility] 00:00: 00:00 oral route 00 :00 every day [place] 5 2020-0 2020- No 1{table Q1D take 1 [facility] mg tablet 6-28 01-19 t} tablet by [facility] 00:00: 00:00 oral route 00 :00 every day [place] 5 2020-0 2020- No 1{table Q1D take 1 [facility] mg tablet 6-19 06-19 t} tablet by [facility] 00:00: 00:00 oral route 00 :00 every day [place] 5 2020-0 2020- No 1{table Q1D take 1 [facility] mg tablet 6-19 -19 t} tablet by [facility] 00:00: 00:00 oral route 00 :00 every day [place] 5 2020-0 2020- No 1{table Q1D take 1 [facility] mg tablet 6- 06-19 t} tablet by [facility] 00:00: 00:00 oral route 00 :00 every day [place] 5 2020-0 2020- No 1{table Q1D take 1 [facility] mg tablet 6-19 06-19 t} tablet by [facility] 00:00: 00:00 oral route 00 :00 every day [place] 5 2020-0 2020- No 1{table Q1D take 1 [facility] mg tablet 6-28 01-19 t} tablet by [facility] 00:00: 00:00 oral route 00 :00 every day [place] 5 2020-0 2020- No 1{table Q1D take 1 [facility] mg tablet 6- 06-19 t} tablet by [facility] 00:00: 00:00 oral route 00 :00 every day [place] 5 2020-0 2020- No 1{table Q1D take 1 [facility] mg tablet 6-19 -19 t} tablet by [facility] 00:00: 00:00 oral route 00 :00 every day [place] 5 2020-0 2020- No 1{table Q1D take 1 [facility] mg tablet 6-28 01-19 t} tablet by [facility] 00:00: 00:00 oral route 00 :00 every day [place] 5 2020-0 2020- No 1{table Q1D take 1 [facility] mg tablet 6-19 06-19 t} tablet by [facility] 00:00: 00:00 oral route 00 :00 every day [place] 5 2020-0 2020- No 1{table Q1D take 1 [facility] mg tablet 6-19 06-19 t} tablet by [facility] 00:00: 00:00 oral route 00 :00 every day [place] 5 2020-0 2020- No 1{table Q1D take 1 [facility] mg tablet 01-28 t} tablet by [facility] 00:00: 00:00 oral route 00 :00 every day [place] 5 2020-0 2020- No 1{table Q1D take 1 Ac [facility] mg tablet -01-28 t} tablet by [facility] 00:00: 00:00 oral route 00 :00 every day [place] 5 2020-0 2020- No 1{table Q1D take 1 Ac [facility] mg tablet 01-28 t} tablet by [facility] 00:00: 00:00 oral route 00 :00 every day [place] 5 2020-0 2020- No 1{table Q1D take 1 [facility] mg tablet 01-28 t} tablet by [facility] 00:00: 00:00 oral route 00 :00 every day [place] 150 2020-0 2020- No 1{capsu Q12H take 1 A [facility] mg capsule 6-01-28 le} capsule by [facility] 00:00: 00:00 oral route 00 :00 2 times every day [place] 150 2020-0 2020- No 1{capsu Q12H take 1 A [facility] mg capsule 6-09 17- le} capsule by [facility] 00:00: 00:00 oral route 00 :00 2 times every day [place] 150 2020-0 2020- No 1{capsu Q12H take 1 A [facility] mg capsule 6-09 17- le} capsule by [facility] 00:00: 00:00 oral route 00 :00 2 times every day [place] 150 2020-0 2020- No 1{capsu Q12H take 1 A [facility] mg capsule 6-09 17-19 le} capsule by [facility] 00:00: 00:00 oral route 00 :00 2 times every day [place] 150 2020-0 2020- No 1{capsu Q12H take 1 A [facility] mg capsule 6-09 17-19 le} capsule by [facility] 00:00: 00:00 oral route 00 :00 2 times every day [place] 150 2020-0 2020- No 1{capsu Q12H take 1 A [facility] mg capsule 6-09 17-19 le} capsule by [facility] 00:00: 00:00 oral route 00 :00 2 times every day [place] 150 2020-0 2020- No 1{capsu Q12H take 1 A [facility] mg capsule 6-09 17- le} capsule by [facility] 00:00: 00:00 oral route 00 :00 2 times every day [place] 150 2020-0 2020- No 1{capsu Q12H take 1 A [facility] mg capsule 6-09 17- le} capsule by [facility] 00:00: 00:00 oral route 00 :00 2 times every day [place] 150 2020-0 2020- No 1{capsu Q12H take 1 A [facility] mg capsule 6-01-28 le} capsule by [facility] 00:00: 00:00 oral route 00 :00 2 times every day [place] 150 2020-0 2020- No 1{capsu Q12H take 1 A [facility] mg capsule 6-01-28 le} capsule by [facility] 00:00: 00:00 oral route 00 :00 2 times every day [place] 150 2020-0 2020- No 1{capsu Q12H take 1 A [facility] mg capsule 6-01-28 le} capsule by [facility] 00:00: 00:00 oral route 00 :00 2 times every day [place] 150 2020-0 2020- No 1{capsu Q12H take 1 A [facility] mg capsule 6-09 17- le} capsule by [facility] 00:00: 00:00 oral route 00 :00 2 times every day [place] 150 2020-0 2020- No 1{capsu Q12H take 1 A [facility] mg capsule 6-09 17- le} capsule by [facility] 00:00: 00:00 oral route 00 :00 2 times every day [place] 150 2020-0 2020- No 1{capsu Q12H take 1 A [facility] mg capsule 6-09 17- le} capsule by [facility] 00:00: 00:00 oral route 00 :00 2 times every day [place] 150 2020-0 2020- No 1{capsu Q12H take 1 A [facility] mg capsule 6-09 17-19 le} capsule by [facility] 00:00: 00:00 oral route 00 :00 2 times every day [place] 150 2020-0 2020- No 1{capsu Q12H take 1 A [facility] mg capsule 01-11 le} capsule by [facility] 00:00: 00:00 oral route 00 :00 2 times every day [place] 150 2020-0 2020- No 1{capsu Q12H take 1 A [facility] mg capsule -01-28 le} capsule by [facility] 00:00: 00:00 oral route 00 :00 2 times every day [place] 150 2020-0 2020- No 1{capsu Q12H take 1 A [facility] mg capsule 01-11 le} capsule by [facility] 00:00: 00:00 oral route 00 :00 2 times every day [place] 150 2020-0 2020- No 1{capsu Q12H take 1 A [facility] mg capsule 01-11 le} capsule by [facility] 00:00: 00:00 oral route 00 :00 2 times every day [place] 150 2020-0 2020- No 1{capsu Q12H take 1 A [facility] mg capsule 01-11 le} capsule by [facility] 00:00: 00:00 oral route 00 :00 2 times every day [place] 150 2020-0 2020- No 1{capsu Q12H take 1 A [facility] mg capsule 01-11 le} capsule by [facility] 00:00: 00:00 oral route 00 :00 2 times every day [place] 150 2020-0 2020- No 1{capsu Q12H take 1 A [facility] mg capsule 01-11 le} capsule by [facility] 00:00: 00:00 oral route 00 :00 2 times every day [place] 150 2020-0 2020- No 1{capsu Q12H take 1 07/03/19 [facility] mg capsule 12-07 le} capsule by [facility] 00:00: 00:00 oral route approved 00 :00 2 times per every day Elena --wm/agricultural equipment operator [place] 150 2020-0 2020- No 1{capsu Q12H take 1 07/03/19 [facility] mg capsule 12-07 le} capsule by [facility] 00:00: 00:00 oral route approved 00 :00 2 times per every day 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[place] 150 2020-0 2020- No 1{capsu Q12H take 1 07/03/19 [facility] mg capsule 12-07 le} capsule by [facility] 00:00: 00:00 oral route approved 00 :00 2 times per every day 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[place] 150 2020-0 2020- No 1{capsu Q12H take 1 07/03/19 [facility] mg capsule 12-07 le} capsule by [facility] 00:00: 00:00 oral route approved 00 :00 2 times per every day 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[place] 150 2020-0 2020- No 1{capsu Q12H take 1 07/03/19 [facility] mg capsule 12-07 le} capsule by [facility] 00:00: 00:00 oral route approved 00 :00 2 times per every day 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[place] 150 2020-0 2020- No 1{capsu Q12H take 1 07/03/19 [facility] mg capsule 12-07 le} capsule by [facility] 00:00: 00:00 oral route approved 00 :00 2 times per every day 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[place] 150 2020-0 2020- No 1{capsu Q12H take 1 07/03/19 [facility] mg capsule 12-07 le} capsule by [facility] 00:00: 00:00 oral route approved 00 :00 2 times per every day 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[place] 150 2020-0 2020- No 1{capsu Q12H take 1 07/03/19 [facility] mg capsule 12-07 le} capsule by [facility] 00:00: 00:00 oral route approved 00 :00 2 times per every day 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[place] 150 2020-0 2020- No 1{capsu Q12H take 1 07/03/19 [facility] mg capsule 12-07- le} capsule by [facility] 00:00: 00:00 oral route approved 00 :00 2 times per every day 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[place] 150 2020-0 2020- No 1{capsu Q12H take 1 07/03/19 [facility] mg capsule 12-07 le} capsule by [facility] 00:00: 00:00 oral route approved 00 :00 2 times per every day 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[place] 150 2020-0 2020- No 1{capsu Q12H take 1 07/03/19 [facility] mg capsule 12-07 le} capsule by [facility] 00:00: 00:00 oral route approved 00 :00 2 times per every day 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[place] 150 2020-0 2020- No 1{capsu Q12H take 1 07/03/19 [facility] mg capsule 12-07 le} capsule by [facility] 00:00: 00:00 oral route approved 00 :00 2 times per every day 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[place] 150 2020-0 2020- No 1{capsu Q12H take 1 07/03/19 [facility] mg capsule 12-07 le} capsule by [facility] 00:00: 00:00 oral route approved 00 :00 2 times per every day 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[place] 150 2020-0 2020- No 1{capsu Q12H take 1 07/03/19 [facility] mg capsule 12-07 le} capsule by [facility] 00:00: 00:00 oral route approved 00 :00 2 times per every day 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[place] 150 2020-0 2020- No 1{capsu Q12H take 1 07/03/19 [facility] mg capsule 12-07 le} capsule by [facility] 00:00: 00:00 oral route approved 00 :00 2 times per every day 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[place] 150 2020-0 2020- No 1{capsu Q12H take 1 07/03/19 [facility] mg capsule 12-07 le} capsule by [facility] 00:00: 00:00 oral route approved 00 :00 2 times per every day 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[place] 150 2020-0 2020- No 1{capsu Q12H take 1 07/03/19 [facility] mg capsule 12-07 le} capsule by [facility] 00:00: 00:00 oral route approved 00 :00 2 times per every day 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[place] 150 2020-0 2020- No 1{capsu Q12H take 1 07/03/19 [facility] mg capsule 12-07 le} capsule by [facility] 00:00: 00:00 oral route approved 00 :00 2 times per every day 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[place] 150 2020-0 2020- No 1{capsu Q12H take 1 07/03/19 [facility] mg capsule 12-07 le} capsule by [facility] 00:00: 00:00 oral route approved 00 :00 2 times per every day 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[place] 150 2019-0 2020- No 1{capsu Q12H take 1 07/03/19 [facility] mg capsule 12-07 le} capsule by [facility] 00:00: 00:00 oral route approved 00 :00 2 times per every day 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[place] 150 2020-0 2020- No 1{capsu Q12H take 1 07/03/19 [facility] mg capsule 12-07 le} capsule by [facility] 00:00: 00:00 oral route approved 00 :00 2 times per every day 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[place] 150 2020-0 2020- No 1{capsu Q12H take 1 07/03/19 [facility] mg capsule 12-07 le} capsule by [facility] 00:00: 00:00 oral route approved 00 :00 2 times per every day 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glimepiride 2019-0 2020- No take 1 [facility] 1 mg tablet 10-12 tablet by [facility] 00:00: 00:00 oral route 00 :00 every day in the morning with food lisinopril 2019-0 2020- No 1{table Q1D take 1 A [facility] 10 mg 10-12 t} tablet by [facility] 00:00: 00:00 oral route 00 :00 every day for blood pressure metformin 2019-0 2020- No 1{table Q12H take 1 [facility] 500 mg 3-10 15- t} tablet by [facility] 00:00: 00:00 oral route 00 :00 2 times every day with morning and evening meals glimepiride 2019-0 2020- No take 1 [facility] 1 mg tablet -01-28 tablet by [facility] 00:00: 00:00 oral route 00 :00 every day in the morning with food lisinopril 2019-0 2020- No 1{table Q1D take 1 A [facility] 10 mg 3-01-28 t} tablet by [facility] 00:00: 00:00 oral route 00 :00 every day for blood pressure metformin 2019-0 2020- No 1{table Q12H take 1 [facility] 500 mg 3-01-28 t} tablet by [facility] 00:00: 00:00 oral route 00 :00 2 times every day with morning and evening meals [place] 5 2019-0 2020- No 1{table Q1D take 1 [facility] mg tablet -01-28 t} tablet by [facility] 00:00: 00:00 oral route 00 :00 every day [place] 5 2020-0 2020- No 1{table Q1D take 1 [facility] mg tablet -01-28 t} tablet by [facility] 00:00: 00:00 oral route 00 :00 every day glimepiride 2019-0 2020- No take 1 [facility] 1 mg tablet 10-12 tablet by [facility] 00:00: 00:00 oral route 00 :00 every day in the morning with food lisinopril 2019-0 2020- No 1{table Q1D take 1 A [facility] 10 mg 3-10 15- t} tablet by [facility] 00:00: 00:00 oral route 00 :00 every day for blood pressure metformin 2019-0 2020- No 1{table Q12H take 1 [facility] 500 mg 3-19 t} tablet by [facility] 00:00: 00:00 oral route 00 :00 2 times every day with morning and evening meals [place] 5 2020-0 2020- No 1{table Q1D take 1 [facility] mg tablet 3-10 15-19 t} tablet by [facility] 00:00: 00:00 oral route 00 :00 every day [place] 5 2020-0 2020- No 1{table Q1D take 1 [facility] mg tablet 3-03 -19 t} tablet by [facility] 00:00: 00:00 oral route 00 :00 every day metformin 2020-0 2020- No 1{table Q12H take 1 [facility] 500 mg 3-10 15-19 t} tablet by [facility] 00:00: 00:00 oral route 00 :00 2 times every day with morning and evening meals lisinopril 2020-0 2020- No 1{table Q1D take 1 A [facility] 10 mg 3-10 15-19 t} tablet by [facility] 00:00: 00:00 oral route 00 :00 every day for blood pressure glimepiride 2020-0 2020- No take 1 [facility] 1 mg tablet 3-10 15-19 tablet by [facility] 00:00: 00:00 oral route 00 :00 every day in the morning with food glimepiride 2020-0 2020- No take 1 [facility] 1 mg tablet 3-10 15-19 tablet by [facility] 00:00: 00:00 oral route 00 :00 every day in the morning with food lisinopril 2020-0 2020- No 1{table Q1D take 1 A [facility] 10 mg 3-10 15-19 t} tablet by [facility] 00:00: 00:00 oral route 00 :00 every day for blood pressure metformin 2020-0 2020- No 1{table Q12H take 1 [facility] 500 mg 3-10 15-19 t} tablet by [facility] 00:00: 00:00 oral route 00 :00 2 times every day with morning and evening meals [place] 5 2020-0 2020- No 1{table Q1D take 1 [facility] mg tablet 3-10 15-19 t} tablet by [facility] 00:00: 00:00 oral route 00 :00 every day lisinopril 2020-0 2020- No 1{table Q1D take 1 A [facility] 10 mg 3-03 -19 t} tablet by [facility] 00:00: 00:00 oral route 00 :00 every day for blood pressure glimepiride 2020-0 2020- No take 1 [facility] 1 mg tablet 3-10 15-19 tablet by lt 00:00: 00:00 oral route 00 :00 every day in the morning with food [place] 5 2020-0 2020- No 1{table Q1D take 1 [facility] mg tablet 3-10 15- t} tablet by [facility] 00:00: 00:00 oral route 00 :00 every day metformin 2020-0 2020- No 1{table Q12H take 1 [facility] 500 mg 3-10 15- t} tablet by [facility] 00:00: 00:00 oral route 00 :00 2 times every day with morning and evening meals glimepiride 2020-0 2020- No take 1 [facility] 1 mg tablet -01-28 tablet by [facility] 00:00: 00:00 oral route 00 :00 every day in the morning with food lisinopril 2020-0 2020- No 1{table Q1D take 1 A [facility] 10 mg 3-10 15- t} tablet by [facility] 00:00: 00:00 oral route 00 :00 every day for blood pressure metformin 2020-0 2020- No 1{table Q12H take 1 [facility] 500 mg 3-10 15- t} tablet by [facility] 00:00: 00:00 oral route 00 :00 2 times every day with morning and evening meals [place] 5 2020-0 2020- No 1{table Q1D take 1 [facility] mg tablet 3-01-28 t} tablet by [facility] 00:00: 00:00 oral route 00 :00 every day glimepiride 2020-0 2020- No take 1 [facility] 1 mg tablet -10 15-19 tablet by lt 00:00: 00:00 oral route 00 :00 every day in the morning with food lisinopril 2020-0 2020- No 1{table Q1D take 1 A [facility] 10 mg 3-03 -19 t} tablet by [facility] 00:00: 00:00 oral route 00 :00 every day for blood pressure metformin 2020-0 2020- No 1{table Q12H take 1 [facility] 500 mg 3-10 15-19 t} tablet by [facility] 00:00: 00:00 oral route 00 :00 2 times every day with morning and evening meals [place] 5 2020-0 2020- No 1{table Q1D take 1 [facility] mg tablet 3-01-28 t} tablet by [facility] 00:00: 00:00 oral route 00 :00 every day glimepiride 2019-0 2020- No take 1 [facility] 1 mg tablet 10-12 tablet by [facility] 00:00: 00:00 oral route 00 :00 every day in the morning with food lisinopril 2019-0 2020- No 1{table Q1D take 1 A [facility] 10 mg 3-01-28 t} tablet by [facility] 00:00: 00:00 oral route 00 :00 every day for blood pressure metformin 2019-0 2020- No 1{table Q12H take 1 Ac [facility] 500 mg 3-01-28 t} tablet by [facility] 00:00: 00:00 oral route 00 :00 2 times every day with morning and evening meals [place] 5 2019-0 2020- No 1{table Q1D take 1 [facility] mg tablet -01-28 t} tablet by [facility] 00:00: 00:00 oral route 00 :00 every day glimepiride 2019-0 2020- No take 1 [facility] 1 mg tablet 10-12 tablet by [facility] 00:00: 00:00 oral route 00 :00 every day in the morning with food lisinopril 2020-0 2020- No 1{table Q1D take 1 A [facility] 10 mg 3-01-28 t} tablet by [facility] 00:00: 00:00 oral route 00 :00 every day for blood pressure metformin 2019-0 2020- No 1{table Q12H take 1 Ac [facility] 500 mg 3-01-28 t} tablet by [facility] 00:00: 00:00 oral route 00 :00 2 times every day with morning and evening meals Crest[place] 5 2020-0 2020- No 1{table Q1D take 1 [facility] mg tablet 3-01-28 t} tablet by [facility] 00:00: 00:00 oral route 00 :00 every day glimepiride 2020-0 2020- No take 1 [facility] 1 mg tablet -03 06-19 tablet by [facility] 00:00: 00:00 oral route 00 :00 every day in the morning with food lisinopril 2020-0 2020- No 1{table Q1D take 1 A [facility] 10 mg 3-10 15-19 t} tablet by [facility] 00:00: 00:00 oral route 00 :00 every day for blood pressure metformin 2020-0 2020- No 1{table Q12H take 1 Ac [facility] 500 mg 3-01-28 t} tablet by [facility] 00:00: 00:00 oral route 00 :00 2 times every day with morning and evening meals Crestor 5 2020-0 2020- No 1{table Q1D take 1 Ac [facility] mg tablet -01-28 t} tablet by [facility] 00:00: 00:00 oral route 00 :00 every day glimepiride 2020-0 2020- No take 1 [facility] 1 mg tablet 10-12 tablet by [facility] 00:00: 00:00 oral route 00 :00 every day in the morning with food lisinopril 2020-0 2020- No 1{table Q1D take 1 A [facility] 10 mg 3-10 15- t} tablet by [facility] 00:00: 00:00 oral route 00 :00 every day for blood pressure metformin 2020-0 2020- No 1{table Q12H take 1 Ac [facility] 500 mg 3-10 15- t} tablet by [facility] 00:00: 00:00 oral route 00 :00 2 times every day with morning and evening meals glimepiride 2020-0 2020- No take 1 [facility] 1 mg tablet -01-28 tablet by [facility] 00:00: 00:00 oral route 00 :00 every day in the morning with food lisinopril 2020-0 2020- No 1{table Q1D take 1 A [facility] 10 mg 3-10 15-19 t} tablet by [facility] 00:00: 00:00 oral route 00 :00 every day for blood pressure metformin 2020-0 2020- No 1{table Q12H take 1 [facility] 500 mg 3-10 15-19 t} tablet by [facility] 00:00: 00:00 oral route 00 :00 2 times every day with morning and evening meals Crest[place] 5 2020-0 2020- No 1{table Q1D take 1 [facility] mg tablet 3-01-28 t} tablet by [facility] 00:00: 00:00 oral route 00 :00 every day Crest[place] 5 2020-0 2020- No 1{table Q1D take 1 [facility] mg tablet 3-01-28 t} tablet by [facility] 00:00: 00:00 oral route 00 :00 every day glimepiride 2019-0 2020- No take 1 [facility] 1 mg tablet 10-12 tablet by [facility] 00:00: 00:00 oral route 00 :00 every day in the morning with food lisinopril 2019-0 2020- No 1{table Q1D take 1 A [facility] 10 mg 3-01-28 t} tablet by [facility] 00:00: 00:00 oral route 00 :00 every day for blood pressure metformin 2019-0 2020- No 1{table Q12H take 1 [facility] 500 mg 3-01-28 t} tablet by [facility] 00:00: 00:00 oral route 00 :00 2 times every day with morning and evening meals Crestor 5 2019-0 2020- No 1{table Q1D take 1 [facility] mg tablet -01-28 t} tablet by [facility] 00:00: 00:00 oral route 00 :00 every day glimepiride 2019-0 2020- No take 1 [facility] 1 mg tablet -01-28 tablet by lt 00:00: 00:00 oral route 00 :00 every day in the morning with food lisinopril 2019-0 2020- No 1{table Q1D take 1 [facility] 10 mg 3-01-28 t} tablet by [facility] tablet 00:00: 00:00 oral route 00 :00 every day for blood pressure metformin 2019-0 2020- No 1{table Q12H take 1 [facility] 500 mg 3-10 15-19 t} tablet by [facility] tablet 00:00: 00:00 oral route 00 :00 2 times every day with morning and evening meals Crestor 5 2020-0 2020- No 1{table Q1D take 1 [facility] mg tablet 3-10 15- t} tablet by [facility] 00:00: 00:00 oral route 00 :00 every day glimepiride 2020-0 2020- No take 1 [facility] 1 mg tablet 3-10 15-19 tablet by [facility] 00:00: 00:00 oral route 00 :00 every day in the morning with food lisinopril 2020-0 2020- No 1{table Q1D take 1 [facility] 10 mg 3-10 15-19 t} tablet by [facility] tablet 00:00: 00:00 oral route 00 :00 every day for blood pressure metformin 2020-0 2020- No 1{table Q12H take 1 [facility] 500 mg 3-01-28 t} tablet by [facility] tablet 00:00: 00:00 oral route 00 :00 2 times every day with morning and evening meals Crestor 5 2020-0 2020- No 1{table Q1D take 1 [facility] mg tablet 3-01-28 t} tablet by [facility] 00:00: 00:00 oral route 00 :00 every day glimepiride 2019-0 2020- No take 1 [facility] 1 mg tablet 10-12 tablet by [facility] 00:00: 00:00 oral route 00 :00 every day in the morning with food lisinopril 2020-0 2020- No 1{table Q1D take 1 [facility] 10 mg 3-10 15-19 t} tablet by [facility] tablet 00:00: 00:00 oral route 00 :00 every day for blood pressure metformin 2020-0 2020- No 1{table Q12H take 1 [facility] 500 mg 3-10 15-19 t} tablet by [facility] tablet 00:00: 00:00 oral route 00 :00 2 times every day with morning and evening meals Crestor 5 2020-0 2020- No 1{table Q1D take 1 [facility] mg tablet 3-10 15-19 t} tablet by [facility] 00:00: 00:00 oral route 00 :00 every day glimepiride 2020-0 2020- No take 1 [facility] 1 mg tablet 3-10 15-19 tablet by [facility] 00:00: 00:00 oral route 00 :00 every day in the morning with food lisinopril 2020-0 2020- No 1{table Q1D take 1 [facility] 10 mg 3-10 15-19 t} tablet by [facility] tablet 00:00: 00:00 oral route 00 :00 every day for blood pressure metformin 2020-0 2020- No 1{table Q12H take 1 [facility] 500 mg 3-10 15-19 t} tablet by [facility] tablet 00:00: 00:00 oral route 00 :00 2 times every day with morning and evening meals Crestor 5 2020-0 2020- No 1{table Q1D take 1 [facility] mg tablet 3-10 15- t} tablet by [facility] 00:00: 00:00 oral route 00 :00 every day glimepiride 2020-0 2020- No take 1 [facility] 1 mg tablet 3-10 15-19 tablet by [facility] 00:00: 00:00 oral route 00 :00 every day in the morning with food lisinopril 2020-0 2020- No 1{table Q1D take 1 [facility] 10 mg 3-10 15-19 t} tablet by [facility] tablet 00:00: 00:00 oral route 00 :00 every day for blood pressure metformin 2019-0 2020- No 1{table Q12H take 1 [facility] 500 mg 3-01-28 t} tablet by [facility] tablet 00:00: 00:00 oral route 00 :00 2 times every day with morning and evening meals Crestor 5 2020-0 2020- No 1{table Q1D take 1 [facility] mg tablet 3-10 15- t} tablet by [facility] 00:00: 00:00 oral route 00 :00 every day glimepiride 2020-0 2020- No take 1 [facility] 1 mg tablet -19 tablet by [facility] 00:00: 00:00 oral route 00 :00 every day in the morning with food lisinopril 2020-0 2020- No 1{table Q1D take 1 [facility] 10 mg 3-03 -19 t} tablet by [facility] tablet 00:00: 00:00 oral route 00 :00 every day for blood pressure metformin 2019-0 2020- No 1{table Q12H take 1 [facility] 500 mg 3-03 -19 t} tablet by [facility] tablet 00:00: 00:00 oral route 00 :00 2 times every day with morning and evening meals Crestor 5 2020-0 2020- No 1{table Q1D take 1 [facility] mg tablet 3-10 15- t} tablet by [facility] 00:00: 00:00 oral route 00 :00 every day glimepiride 2020-0 2020- No take 1 [facility] 1 mg tablet 3-10 15-19 tablet by [facility] 00:00: 00:00 oral route 00 :00 every day in the morning with food lisinopril 2020-0 2020- No 1{table Q1D take 1 [facility] 10 mg 3-10 15- t} tablet by [facility] tablet 00:00: 00:00 oral route 00 :00 every day for blood pressure Crestor 5 2020-0 2020- No 1{table Q1D take 1 [facility] mg tablet 3-10 15- t} tablet by [facility] 00:00: 00:00 oral route 00 :00 every day metformin 2020-0 2020- No 1{table Q12H take 1 [facility] 500 mg 3-01-28 t} tablet by [facility] tablet 00:00: 00:00 oral route 00 :00 2 times every day with morning and evening meals Crestor 5 2020-0 2020- No 1{table Q1D take 1 [facility] mg tablet 3-01-28 t} tablet by [facility] 00:00: 00:00 oral route 00 :00 every day metformin 2020-0 2020- No 1{table Q12H take 1 [facility] 500 mg 3-10 15- t} tablet by [facility] tablet 00:00: 00:00 oral route 00 :00 2 times every day with morning and evening meals lisinopril 2020-0 2020- No 1{table Q1D take 1 [facility] 10 mg 3-10 15- t} tablet by [facility] tablet 00:00: 00:00 oral route 00 :00 every day for blood pressure glimepiride 2020-0 2020- No take 1 [facility] 1 mg tablet 3-19 tablet by [facility] 00:00: 00:00 oral route 00 :00 every day in the morning with food Crestor 5 2020-0 2020- No 1{table Q1D take 1 [facility] mg tablet -10-12 t} tablet by [facility] 00:00: 00:00 oral route 00 :00 every day Crestor 5 2020-0 2020- No 1{table Q1D take 1 [facility] mg tablet 09-24 t} tablet by [facility] 00:00: 00:00 oral route 00 :00 every day Crestor 5 2020-0 2020- No 1{table Q1D take 1 [facility] mg tablet 09-24 t} tablet by [facility] 00:00: 00:00 oral route 00 :00 every day Crestor 5 2020-0 2020- No 1{table Q1D take 1 [facility] mg tablet 09-24 t} tablet by [facility] 00:00: 00:00 oral route 00 :00 every day Crestor 5 2020-0 2020- No 1{table Q1D take 1 [facility] mg tablet 09-24 t} tablet by [facility] 00:00: 00:00 oral route 00 :00 every day Crestor 5 2020-0 2020- No 1{table Q1D take 1 [facility] mg tablet 09-24 t} tablet by [facility] 00:00: 00:00 oral route 00 :00 every day Crestor 5 2020-0 2020- No 1{table Q1D take 1 [facility] mg tablet 09-24 t} tablet by [facility] 00:00: 00:00 oral route 00 :00 every day Crestor 5 2020-0 2020- No 1{table Q1D take 1 [facility] mg tablet 09-24 t} tablet by [facility] 00:00: 00:00 oral route 00 :00 every day Crestor 5 2020-0 2020- No 1{table Q1D take 1 [facility] mg tablet 09-24 t} tablet by [facility] 00:00: 00:00 oral route 00 :00 every day Crestor 5 2020-0 2020- No 1{table Q1D take 1 [facility] mg tablet 09-24 t} tablet by [facility] 00:00: 00:00 oral route 00 :00 every day Crestor 5 2020-0 2020- No 1{table Q1D take 1 [facility] mg tablet 09-24 t} tablet by [facility] 00:00: 00:00 oral route 00 :00 every day Crestor 5 2020-0 2020- No 1{table Q1D take 1 [facility] mg tablet 09-24 t} tablet by [facility] 00:00: 00:00 oral route 00 :00 every day Crestor 5 2020-0 2020- No 1{table Q1D take 1 [facility] mg tablet 09-2403 t} tablet by [facility] 00:00: 00:00 oral route 00 :00 every day Crestor 5 2020-0 2020- No 1{table Q1D take 1 [facility] mg tablet 09-2403 t} tablet by [facility] 00:00: 00:00 oral route 00 :00 every day Crestor 5 2020-0 2020- No 1{table Q1D take 1 [facility] mg tablet 09-24 t} tablet by [facility] 00:00: 00:00 oral route 00 :00 every day Crestor 5 2020-0 2020- No 1{table Q1D take 1 [facility] mg tablet 09-24 t} tablet by [facility] 00:00: 00:00 oral route 00 :00 every day Crestor 5 2020-0 2020- No 1{table Q1D take 1 [facility] mg tablet 09-24 t} tablet by [facility] 00:00: 00:00 oral route 00 :00 every day Crestor 5 2020-0 2020- No 1{table Q1D take 1 [facility] mg tablet 09-2403 t} tablet by [facility] 00:00: 00:00 oral route 00 :00 every day Crestor 5 2020-0 2020- No 1{table Q1D take 1 [facility] mg tablet 09-2403 t} tablet by [facility] 00:00: 00:00 oral route 00 :00 every day Crestor 5 2020-0 2020- No 1{table Q1D take 1 [facility] mg tablet 09-2403 t} tablet by [facility] 00:00: 00:00 oral route 00 :00 every day Crestor 5 2020-0 2020- No 1{table Q1D take 1 [facility] mg tablet 09-2403 t} tablet by [facility] 00:00: 00:00 oral route 00 :00 every day Crestor 5 2020-0 2020- No 1{table Q1D take 1 [facility] mg tablet 09-2403 t} tablet by [facility] 00:00: 00:00 oral route 00 :00 every day Lyrica 150 2020-0 2020- No 1{capsu Q12H take 1 07/03/19 [facility] mg capsule 08-25 le} capsule by [facility] 00:00: 00:00 oral route approved 00 :00 2 times per every day 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Lyrica 150 2020-0 2020- No 1{capsu Q12H take 1 07/03/19 [facility] mg capsule 08-25 le} capsule by [facility] 00:00: 00:00 oral route approved 00 :00 2 times per every day 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Lyrica 150 2020-0 2020- No 1{capsu Q12H take 1 07/03/19 [facility] mg capsule 08-25 le} capsule by [facility] 00:00: 00:00 oral route approved 00 :00 2 times per every day 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Lyrica 150 2020-0 2020- No 1{capsu Q12H take 1 07/03/19 [facility] mg capsule 08-25 le} capsule by [facility] 00:00: 00:00 oral route approved 00 :00 2 times per every day 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Lyrica 150 2020-0 2020- No 1{capsu Q12H take 1 07/03/19 [facility] mg capsule 08-25 le} capsule by [facility] 00:00: 00:00 oral route approved 00 :00 2 times per every day 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Lyrica 150 2020-0 2020- No 1{capsu Q12H take 1 07/03/19 [facility] mg capsule 08-25 le} capsule by [facility] 00:00: 00:00 oral route approved 00 :00 2 times per every day 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Lyrica 150 2020-0 2020- No 1{capsu Q12H take 1 07/03/19 [facility] mg capsule 08-25 le} capsule by [facility] 00:00: 00:00 oral route approved 00 :00 2 times per every day 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Lyrica 150 2020-0 2020- No 1{capsu Q12H take 1 07/03/19 [facility] mg capsule 08-25 le} capsule by [facility] 00:00: 00:00 oral route approved 00 :00 2 times per every day 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Lyrica 150 2020-0 2020- No 1{capsu Q12H take 1 07/03/19 [facility] mg capsule 08-25 le} capsule by [facility] 00:00: 00:00 oral route approved 00 :00 2 times per every day 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Lyrica 150 2020-0 2020- No 1{capsu Q12H take 1 07/03/19 [facility] mg capsule 08-25 le} capsule by [facility] 00:00: 00:00 oral route approved 00 :00 2 times per every day 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Lyrica 150 2020-0 2020- No 1{capsu Q12H take 1 07/03/19 [facility] mg capsule 08-25 le} capsule by [facility] 00:00: 00:00 oral route approved 00 :00 2 times per every day 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Lyrica 150 2020-0 2020- No 1{capsu Q12H take 1 07/03/19 [facility] mg capsule 08-25 le} capsule by [facility] 00:00: 00:00 oral route approved 00 :00 2 times per every day 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Lyrica 150 2020-0 2020- No 1{capsu Q12H take 1 07/03/19 [facility] mg capsule 08-25 le} capsule by [facility] 00:00: 00:00 oral route approved 00 :00 2 times per every day 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Lyrica 150 2020-0 2020- No 1{capsu Q12H take 1 07/03/19 [facility] mg capsule 08-25 le} capsule by [facility] 00:00: 00:00 oral route approved 00 :00 2 times per every day 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Lyrica 150 2020-0 2020- No 1{capsu Q12H take 1 07/03/19 [facility] mg capsule 08-25 le} capsule by [facility] 00:00: 00:00 oral route approved 00 :00 2 times per every day 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Lyrica 150 2020-0 2020- No 1{capsu Q12H take 1 07/03/19 [facility] mg capsule 08-25 le} capsule by [facility] 00:00: 00:00 oral route approved 00 :00 2 times per every day 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Lyrica 150 2020-0 2020- No 1{capsu Q12H take 1 07/03/19 [facility] mg capsule 08-25 le} capsule by [facility] 00:00: 00:00 oral route approved 00 :00 2 times per every day 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Lyrica 150 2020-0 2020- No 1{capsu Q12H take 1 07/03/19 [facility] mg capsule 08-25 le} capsule by [facility] 00:00: 00:00 oral route approved 00 :00 2 times per every day 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Lyrica 150 2020-0 2020- No 1{capsu Q12H take 1 07/03/19 [facility] mg capsule 08-25 le} capsule by [facility] 00:00: 00:00 oral route approved 00 :00 2 times per every day 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Lyrica 150 2020-0 2020- No 1{capsu Q12H take 1 07/03/19 [facility] mg capsule 08-25 le} capsule by [facility] 00:00: 00:00 oral route approved 00 :00 2 times per every day 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Lyrica 150 2020-0 2020- No 1{capsu Q12H take 1 07/03/19 [facility] mg capsule 08-25 le} capsule by [facility] 00:00: 00:00 oral route approved 00 :00 2 times per every day 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Lyrica 150 2020-0 2020- No 1{capsu Q12H take 1 07/03/19 [facility] mg capsule 1-14 04-28 le} capsule by [facility] 00:00: 00:00 oral route approved 00 :00 2 times per every day Elena --wm/agricultural equipment operator glimepiride 2019-0 2020- No take 1 [facility] 1 mg tablet 08-25 tablet by lt 00:00: 00:00 oral route 00 :00 every day in the morning with food metformin 2019-0 2020- No 1{table Q12H take 1 [facility] 500 mg 08-25 t} tablet by [facility] tablet 00:00: 00:00 oral route 00 :00 2 times every day with morning and evening meals lisinopril 2019-0 2020- No 1{table Q1D take 1 A [facility] 10 mg 08-25 t} tablet by [facility] 00:00: 00:00 oral route 00 :00 every day for blood pressure glimepiride 2019-0 2020- No take 1 [facility] 1 mg tablet 08-25 tablet by lt 00:00: 00:00 oral route 00 :00 every day in the morning with food metformin 2020-0 2020- No 1{table Q12H take 1 [facility] 500 mg 08-25 t} tablet by [facility] tablet 00:00: 00:00 oral route 00 :00 2 times every day with morning and evening meals lisinopril 2019-0 2020- No 1{table Q1D take 1 A [facility] 10 mg 08-25 t} tablet by [facility] tablet 00:00: 00:00 oral route 00 :00 every day for blood pressure glimepiride 2019-0 2020- No take 1 [facility] 1 mg tablet 08-25 tablet by [facility] 00:00: 00:00 oral route 00 :00 every day in the morning with food metformin 2020-0 2020- No 1{table Q12H take 1 [facility] 500 mg 08-25 t} tablet by [facility] tablet 00:00: 00:00 oral route 00 :00 2 times every day with morning and evening meals lisinopril 2020-0 2020- No 1{table Q1D take 1 A [facility] 10 mg 08-25 t} tablet by [facility] tablet 00:00: 00:00 oral route 00 :00 every day for blood pressure lisinopril 2020-0 2020- No 1{table Q1D take 1 A [facility] 10 mg -10-12 t} tablet by [facility] tablet 00:00: 00:00 oral route 00 :00 every day for blood pressure metformin 2020-0 2020- No 1{table Q12H take 1 [facility] 500 mg 08-25 t} tablet by [facility] tablet 00:00: 00:00 oral route 00 :00 2 times every day with morning and evening meals glimepiride 2019-0 2020- No take 1 [facility] 1 mg tablet 08-25 tablet by [facility] 00:00: 00:00 oral route 00 :00 every day in the morning with food glimepiride 2019-0 2020- No take 1 [facility] 1 mg tablet 08-25 tablet by lt 00:00: 00:00 oral route 00 :00 every day in the morning with food metformin 2020-0 2020- No 1{table Q12H take 1 [facility] 500 mg 08-25 t} tablet by [facility] tablet 00:00: 00:00 oral route 00 :00 2 times every day with morning and evening meals lisinopril 2020-0 2020- No 1{table Q1D take 1 A [facility] 10 mg 08-25 t} tablet by [facility] tablet 00:00: 00:00 oral route 00 :00 every day for blood pressure lisinopril 2020-0 2020- No 1{table Q1D take 1 A [facility] 10 mg 08-25 t} tablet by [facility] tablet 00:00: 00:00 oral route 00 :00 every day for blood pressure metformin 2020-0 2020- No 1{table Q12H take 1 Ac [facility] 500 mg 08-25 t} tablet by [facility] tablet 00:00: 00:00 oral route 00 :00 2 times every day with morning and evening meals glimepiride 2020-0 2020- No take 1 [facility] 1 mg tablet 08-25 tablet by [facility] 00:00: 00:00 oral route 00 :00 every day in the morning with food glimepiride 2020-0 2020- No take 1 [facility] 1 mg tablet 08-25 tablet by [facility] 00:00: 00:00 oral route 00 :00 every day in the morning with food metformin 2020-0 2020- No 1{table Q12H take 1 Ac [facility] 500 mg 08-25 t} tablet by [facility] tablet 00:00: 00:00 oral route 00 :00 2 times every day with morning and evening meals lisinopril 2019-0 2020- No 1{table Q1D take 1 A [facility] 10 mg 08-25 t} tablet by [facility] tablet 00:00: 00:00 oral route 00 :00 every day for blood pressure glimepiride 2019-0 2020- No take 1 [facility] 1 mg tablet 08-25 tablet by [facility] 00:00: 00:00 oral route 00 :00 every day in the morning with food metformin 2020-0 2020- No 1{table Q12H take 1 Ac [facility] 500 mg 08-25 t} tablet by [facility] tablet 00:00: 00:00 oral route 00 :00 2 times every day with morning and evening meals lisinopril 2019-0 2020- No 1{table Q1D take 1 A [facility] 10 mg 08-25 t} tablet by [facility] tablet 00:00: 00:00 oral route 00 :00 every day for blood pressure glimepiride 2019-0 2020- No take 1 [facility] 1 mg tablet 08-25 tablet by [facility] 00:00: 00:00 oral route 00 :00 every day in the morning with food metformin 2020-0 2020- No 1{table Q12H take 1 Ac [facility] 500 mg 08-25 t} tablet by [facility] tablet 00:00: 00:00 oral route 00 :00 2 times every day with morning and evening meals lisinopril 2020-0 2020- No 1{table Q1D take 1 A [facility] 10 mg 08-25 t} tablet by [facility] tablet 00:00: 00:00 oral route 00 :00 every day for blood pressure glimepiride 2019-0 2020- No take 1 [facility] 1 mg tablet 08-25 tablet by [facility] 00:00: 00:00 oral route 00 :00 every day in the morning with food metformin 2020-0 2020- No 1{table Q12H take 1 Ac [facility] 500 mg 08-25 t} tablet by [facility] tablet 00:00: 00:00 oral route 00 :00 2 times every day with morning and evening meals lisinopril 2020-0 2020- No 1{table Q1D take 1 A [facility] 10 mg 08-25 t} tablet by [facility] 00:00: 00:00 oral route 00 :00 every day for blood pressure glimepiride 2020-0 2020- No take 1 [facility] 1 mg tablet 08-25 tablet by [facility] 00:00: 00:00 oral route 00 :00 every day in the morning with food metformin 2020-0 2020- No 1{table Q12H take 1 [facility] 500 mg 08-25 t} tablet by [facility] tablet 00:00: 00:00 oral route 00 :00 2 times every day with morning and evening meals lisinopril 2020-0 2020- No 1{table Q1D take 1 A [facility] 10 mg 08-25 t} tablet by [facility] tablet 00:00: 00:00 oral route 00 :00 every day for blood pressure glimepiride 2020-0 2020- No take 1 [facility] 1 mg tablet 08-25 tablet by [facility] 00:00: 00:00 oral route 00 :00 every day in the morning with food metformin 2020-0 2020- No 1{table Q12H take 1 Ac [facility] 500 mg 08-25 t} tablet by [facility] tablet 00:00: 00:00 oral route 00 :00 2 times every day with morning and evening meals lisinopril 2020-0 2020- No 1{table Q1D take 1 A [facility] 10 mg 08-25 t} tablet by [facility] tablet 00:00: 00:00 oral route 00 :00 every day for blood pressure glimepiride 2020-0 2020- No take 1 [facility] 1 mg tablet 08-25 tablet by [facility] 00:00: 00:00 oral route 00 :00 every day in the morning with food metformin 2020-0 2020- No 1{table Q12H take 1 [facility] 500 mg 08-25 t} tablet by [facility] tablet 00:00: 00:00 oral route 00 :00 2 times every day with morning and evening meals lisinopril 2020-0 2020- No 1{table Q1D take 1 A [facility] 10 mg 08-25 t} tablet by [facility] tablet 00:00: 00:00 oral route 00 :00 every day for blood pressure glimepiride 2020-0 2020- No take 1 [facility] 1 mg tablet 08-25 tablet by [facility] 00:00: 00:00 oral route 00 :00 every day in the morning with food metformin 2020-0 2020- No 1{table Q12H take 1 Ac [facility] 500 mg 08-25 t} tablet by [facility] tablet 00:00: 00:00 oral route 00 :00 2 times every day with morning and evening meals lisinopril 2020-0 2020- No 1{table Q1D take 1 A [facility] 10 mg 08-25 t} tablet by [facility] tablet 00:00: 00:00 oral route 00 :00 every day for blood pressure glimepiride 2020-0 2020- No take 1 [facility] 1 mg tablet 08-25 tablet by [facility] 00:00: 00:00 oral route 00 :00 every day in the morning with food metformin 2020-0 2020- No 1{table Q12H take 1 Ac [facility] 500 mg 08-25 t} tablet by [facility] tablet 00:00: 00:00 oral route 00 :00 2 times every day with morning and evening meals lisinopril 2020-0 2020- No 1{table Q1D take 1 A [facility] 10 mg 08-25 t} tablet by [facility] tablet 00:00: 00:00 oral route 00 :00 every day for blood pressure glimepiride 2020-0 2020- No take 1 [facility] 1 mg tablet 08-25 tablet by [facility] 00:00: 00:00 oral route 00 :00 every day in the morning with food metformin 2020-0 2020- No 1{table Q12H take 1 Ac [facility] 500 mg 08-25 t} tablet by [facility] tablet 00:00: 00:00 oral route 00 :00 2 times every day with morning and evening meals lisinopril 2020-0 2020- No 1{table Q1D take 1 A [facility] 10 mg 08-25 t} tablet by [facility] tablet 00:00: 00:00 oral route 00 :00 every day for blood pressure glimepiride 2019-0 2020- No take 1 [facility] 1 mg tablet 08-25 tablet by [facility] 00:00: 00:00 oral route 00 :00 every day in the morning with food metformin 2020-0 2020- No 1{table Q12H take 1 Ac [facility] 500 mg 08-25 t} tablet by [facility] tablet 00:00: 00:00 oral route 00 :00 2 times every day with morning and evening meals lisinopril 2019-0 2020- No 1{table Q1D take 1 A [facility] 10 mg 08-25 t} tablet by [facility] tablet 00:00: 00:00 oral route 00 :00 every day for blood pressure glimepiride 2019-0 2020- No take 1 [facility] 1 mg tablet 08-25 tablet by [facility] 00:00: 00:00 oral route 00 :00 every day in the morning with food metformin 2020-0 2020- No 1{table Q12H take 1 [facility] 500 mg 08-25 t} tablet by [facility] tablet 00:00: 00:00 oral route 00 :00 2 times every day with morning and evening meals lisinopril 2019-0 2020- No 1{table Q1D take 1 A [facility] 10 mg 08-25 t} tablet by [facility] tablet 00:00: 00:00 oral route 00 :00 every day for blood pressure glimepiride 2019-0 2020- No take 1 [facility] 1 mg tablet 08-25 tablet by [facility] 00:00: 00:00 oral route 00 :00 every day in the morning with food metformin 2020-0 2020- No 1{table Q12H take 1 Ac [facility] 500 mg 08-25 t} tablet by [facility] tablet 00:00: 00:00 oral route 00 :00 2 times every day with morning and evening meals lisinopril 2020-0 2020- No 1{table Q1D take 1 A [facility] 10 mg 08-25 t} tablet by [facility] tablet 00:00: 00:00 oral route 00 :00 every day for blood pressure glimepiride 2019-0 2020- No take 1 [facility] 1 mg tablet 08-25 tablet by [facility] 00:00: 00:00 oral route 00 :00 every day in the morning with food metformin 2020-0 2020- No 1{table Q12H take 1 Ac [facility] 500 mg 08-25 t} tablet by [facility] tablet 00:00: 00:00 oral route 00 :00 2 times every day with morning and evening meals lisinopril 2019-0 2020- No 1{table Q1D take 1 A [facility] 10 mg 08-25 t} tablet by [facility] tablet 00:00: 00:00 oral route 00 :00 every day for blood pressure lisinopril 2019-0 2020- No 1{table Q1D take 1 A [facility] 10 mg 08-25 t} tablet by [facility] tablet 00:00: 00:00 oral route 00 :00 every day for blood pressure metformin 2019-0 2020- No 1{table Q12H take 1 Ac [facility] 500 mg 08-25 t} tablet by [facility] tablet 00:00: 00:00 oral route 00 :00 2 times every day with morning and evening meals glimepiride 2019-0 2020- No take 1 [facility] 1 mg tablet 08-25 tablet by [facility] 00:00: 00:00 oral route 00 :00 every day in the morning with food lisinopril 2019-0 2020- No 1{table Q1D take 1 A [facility] 10 mg 08-25 t} tablet by [facility] 00:00: 00:00 oral route 00 :00 every day for blood pressure metformin 2019-0 2020- No 1{table Q12H take 1 Ac [facility] 500 mg 08-25 t} tablet by [facility] tablet 00:00: 00:00 oral route 00 :00 2 times every day with morning and evening meals glimepiride 2019-0 2020- No take 1 [facility] 1 mg tablet 1-14 03-03 tablet by [facility] 00:00: 00:00 oral route 00 :00 every day in the morning with food Lyrica 75 2019-0 2020- No 1{capsu Q12H take 1 07/03/19 [facility] mg capsule 08-25 le} capsule by [facility] 00:00: 00:00 oral route approved 00 :00 2 times per every day 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Lyrica 75 2019-0 2020- No 1{capsu Q12H take 1 07/03/19 [facility] mg capsule 08-25 le} capsule by [facility] 00:00: 00:00 oral route approved 00 :00 2 times per every day 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Lyrica 75 2019-0 2020- No 1{capsu Q12H take 1 07/03/19 [facility] mg capsule 08-25 le} capsule by [facility] 00:00: 00:00 oral route approved 00 :00 2 times per every day 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[place] 75 2019-0 2020- No 1{capsu Q12H take 1 07/03/19 [facility] mg capsule 08-25 le} capsule by [facility] 00:00: 00:00 oral route approved 00 :00 2 times per every day 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[place] 75 2020-0 2020- No 1{capsu Q12H take 1 07/03/19 [facility] mg capsule 08-25 le} capsule by [facility] 00:00: 00:00 oral route approved 00 :00 2 times per every day 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[place] 75 2020-0 2020- No 1{capsu Q12H take 1 07/03/19 [facility] mg capsule 08-25 le} capsule by [facility] 00:00: 00:00 oral route approved 00 :00 2 times per every day 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[place] 75 2019-0 2020- No 1{capsu Q12H take 1 07/03/19 [facility] mg capsule 08-25 le} capsule by [facility] 00:00: 00:00 oral route approved 00 :00 2 times per every day 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Ly[place] 75 2020-0 2020- No 1{capsu Q12H take 1 07/03/19 [facility] mg capsule 08-25 le} capsule by [facility] 00:00: 00:00 oral route approved 00 :00 2 times per every day 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Lyrica 75 2020-0 2020- No 1{capsu Q12H take 1 07/03/19 [facility] mg capsule 08-25 le} capsule by [facility] 00:00: 00:00 oral route approved 00 :00 2 times per every day 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Lyrica 75 2020-0 2020- No 1{capsu Q12H take 1 07/03/19 [facility] mg capsule 08-25 le} capsule by [facility] 00:00: 00:00 oral route approved 00 :00 2 times per every day 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Lyrica 75 2020-0 2020- No 1{capsu Q12H take 1 07/03/19 [facility] mg capsule 08-25 le} capsule by [facility] 00:00: 00:00 oral route approved 00 :00 2 times per every day 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Ly[place] 75 2020-0 2020- No 1{capsu Q12H take 1 07/03/19 [facility] mg capsule 08-25 le} capsule by [facility] 00:00: 00:00 oral route approved 00 :00 2 times per every day 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Lyrica 75 2020-0 2020- No 1{capsu Q12H take 1 07/03/19 [facility] mg capsule 08-25 le} capsule by [facility] 00:00: 00:00 oral route approved 00 :00 2 times per every day 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Lyrica 75 2020-0 2020- No 1{capsu Q12H take 1 07/03/19 [facility] mg capsule 08-25 le} capsule by [facility] 00:00: 00:00 oral route approved 00 :00 2 times per every day 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Lyrica 75 2020-0 2020- No 1{capsu Q12H take 1 07/03/19 [facility] mg capsule 08-25 le} capsule by [facility] 00:00: 00:00 oral route approved 00 :00 2 times per every day 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Lyrica 75 2020-0 2020- No 1{capsu Q12H take 1 07/03/19 [facility] mg capsule 08-25 le} capsule by [facility] 00:00: 00:00 oral route approved 00 :00 2 times per every day 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Lyrica 75 2020-0 2020- No 1{capsu Q12H take 1 07/03/19 [facility] mg capsule 08-25 le} capsule by [facility] 00:00: 00:00 oral route approved 00 :00 2 times per every day 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Lyrica 75 2020-0 2020- No 1{capsu Q12H take 1 07/03/19 [facility] mg capsule 08-25 le} capsule by [facility] 00:00: 00:00 oral route approved 00 :00 2 times per every day 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Lyrica 75 2020-0 2020- No 1{capsu Q12H take 1 07/03/19 [facility] mg capsule 08-25 le} capsule by [facility] 00:00: 00:00 oral route approved 00 :00 2 times per every day 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Lyrica 75 2020-0 2020- No 1{capsu Q12H take 1 07/03/19 [facility] mg capsule 08-25 le} capsule by [facility] 00:00: 00:00 oral route approved 00 :00 2 times per every day 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Lyrica 75 2020-0 2020- No 1{capsu Q12H take 1 07/03/19 [facility] mg capsule 08-25 le} capsule by [facility] 00:00: 00:00 oral route approved 00 :00 2 times per every day 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Lyrica 75 2020-0 2020- No 1{capsu Q12H take 1 07/03/19 [facility] mg capsule 08-25 le} capsule by [facility] 00:00: 00:00 oral route approved 00 :00 2 times per every day 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Ly[place] 75 2020-0 2020- No 1{capsu Q12H take 1 07/03/19 [facility] mg capsule 08-25 le} capsule by [facility] 00:00: 00:00 oral route approved 00 :00 2 times per every day 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Ly[place] 75 2020-0 2020- No 1{capsu Q12H take 1 07/03/19 [facility] mg capsule 08-25 le} capsule by [facility] 00:00: 00:00 oral route approved 00 :00 2 times per every day 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[place] 75 2020-0 2020- No 1{capsu Q12H take 1 07/03/19 [facility] mg capsule 08-25 le} capsule by [facility] 00:00: 00:00 oral route approved 00 :00 2 times per every day 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[place] 75 2020-0 2020- No 1{capsu Q12H take 1 07/03/19 [facility] mg capsule 08-25 le} capsule by [facility] 00:00: 00:00 oral route approved 00 :00 2 times per every day 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[place] 75 2020-0 2020- No 1{capsu Q12H take 1 07/03/19 [facility] mg capsule 08-25 le} capsule by [facility] 00:00: 00:00 oral route approved 00 :00 2 times per every day 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[place] 75 2020-0 2020- No 1{capsu Q12H take 1 07/03/19 [facility] mg capsule 08-25 le} capsule by [facility] 00:00: 00:00 oral route approved 00 :00 2 times per every day 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[place] 75 2020-0 2020- No 1{capsu Q12H take 1 07/03/19 [facility] mg capsule 08-25 le} capsule by [facility] 00:00: 00:00 oral route approved 00 :00 2 times per every day 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[place] 75 2020-0 2020- No 1{capsu Q12H take 1 07/03/19 [facility] mg capsule 08-25 le} capsule by [facility] 00:00: 00:00 oral route approved 00 :00 2 times per every day 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[place] 75 2020-0 2020- No 1{capsu Q12H take 1 07/03/19 [facility] mg capsule 08-25 le} capsule by [facility] 00:00: 00:00 oral route approved 00 :00 2 times per every day 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[place] 75 2020-0 2020- No 1{capsu Q12H take 1 07/03/19 [facility] mg capsule 08-25 le} capsule by [facility] 00:00: 00:00 oral route approved 00 :00 2 times per every day 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[place] 75 2020-0 2020- No 1{capsu Q12H take 1 07/03/19 [facility] mg capsule 08-25 le} capsule by [facility] 00:00: 00:00 oral route approved 00 :00 2 times per every day 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[place] 75 2020-0 2020- No 1{capsu Q12H take 1 07/03/19 [facility] mg capsule 08-25 le} capsule by [facility] 00:00: 00:00 oral route approved 00 :00 2 times per every day 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[place] 75 2020-0 2020- No 1{capsu Q12H take 1 07/03/19 [facility] mg capsule 08-25 le} capsule by [facility] 00:00: 00:00 oral route approved 00 :00 2 times per every day 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[place] 75 2020-0 2020- No 1{capsu Q12H take 1 07/03/19 [facility] mg capsule 08-25 le} capsule by [facility] 00:00: 00:00 oral route approved 00 :00 2 times per every day 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[place] 75 2020-0 2020- No 1{capsu Q12H take 1 07/03/19 [facility] mg capsule 08-25 le} capsule by [facility] 00:00: 00:00 oral route approved 00 :00 2 times per every day 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[place] 75 2020-0 2020- No 1{capsu Q12H take 1 07/03/19 [facility] mg capsule 08-25 le} capsule by [facility] 00:00: 00:00 oral route approved 00 :00 2 times per every day 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[place] 75 2020-0 2020- No 1{capsu Q12H take 1 07/03/19 [facility] mg capsule 08-25 le} capsule by [facility] 00:00: 00:00 oral route approved 00 :00 2 times per every day 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[place] 75 2020-0 2020- No 1{capsu Q12H take 1 07/03/19 [facility] mg capsule 08-25 le} capsule by [facility] 00:00: 00:00 oral route approved 00 :00 2 times per every day 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[place] 75 2020-0 2020- No 1{capsu Q12H take 1 07/03/19 [facility] mg capsule 08-25 le} capsule by [facility] 00:00: 00:00 oral route approved 00 :00 2 times per every day 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[place] 75 2020-0 2020- No 1{capsu Q12H take 1 07/03/19 [facility] mg capsule 08-25 le} capsule by [facility] 00:00: 00:00 oral route approved 00 :00 2 times per every day 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[place] 75 2020-0 2020- No 1{capsu Q12H take 1 07/03/19 [facility] mg capsule 08-25 le} capsule by [facility] 00:00: 00:00 oral route approved 00 :00 2 times per every day 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[place] 75 2020- No 1{capsu Q12H take 1 07/03/19 [facility] mg capsule 08-25 le} capsule by [facility] 00:00: 00:00 oral route approved 00 :00 2 times per every day 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lisinopril 2018-08 2020- No 1{table Q1D take 1 A ccess[facility] 10 mg 2-03 -14 t} tablet by [facility] 00:00: 00:00 oral route 00 :00 every day for blood pressure lisinopril 2018-08 2020- No 1{table Q1D take 1 A ccessH 10 mg 2-03 -14 t} tablet by [facility] 00:00: 00:00 oral route 00 :00 every day for blood pressure lisinopril 2018-08 2020- No 1{table Q1D take 1 A ccess[facility] 10 mg 2-03 -14 t} tablet by [facility] 00:00: 00:00 oral route 00 :00 every day for blood pressure lisinopril 2018-08 2020- No 1{table Q1D take 1 A ccess[facility] 10 mg 2-03 -14 t} tablet by [facility] 00:00: 00:00 oral route 00 :00 every day for blood pressure lisinopril 2018-08 2020- No 1{table Q1D take 1 A ccess[facility] 10 mg 2-03 -14 t} tablet by [facility] 00:00: 00:00 oral route 00 :00 every day for blood pressure lisinopril 2018-08 2020- No 1{table Q1D take 1 A ccess[facility] 10 mg 2-03 -14 t} tablet by [facility] 00:00: 00:00 oral route 00 :00 every day for blood pressure lisinopril 2018-08 2020- No 1{table Q1D take 1 A ccess[facility] 10 mg 2-03 -14 t} tablet by [facility] 00:00: 00:00 oral route 00 :00 every day for blood pressure lisinopril 2018-08 2020- No 1{table Q1D take 1 A ccess[facility] 10 mg 2-03 01-14 t} tablet by [facility] 00:00: 00:00 oral route 00 :00 every day for blood pressure lisinopril 2018- 2020- No 1{table Q1D take 1 A ccess[facility] 10 mg 2-03 01-14 t} tablet by [facility] 00:00: 00:00 oral route 00 :00 every day for blood pressure lisinopril 2018-08 2020- No 1{table Q1D take 1 A ccess[facility] 10 mg 2-03 01-14 t} tablet by [facility] 00:00: 00:00 oral route 00 :00 every day for blood pressure lisinopril 2018-08 2020- No 1{table Q1D take 1 A ccess[facility] 10 mg 2-03 01-14 t} tablet by [facility] 00:00: 00:00 oral route 00 :00 every day for blood pressure lisinopril 2018-08 2020- No 1{table Q1D take 1 A ccess[facility] 10 mg 2-03 01-14 t} tablet by [facility] 00:00: 00:00 oral route 00 :00 every day for blood pressure lisinopril 2018-08 2020- No 1{table Q1D take 1 A ccess[facility] 10 mg 2-03 01-14 t} tablet by [facility] 00:00: 00:00 oral route 00 :00 every day for blood pressure lisinopril 2018- 2020- No 1{table Q1D take 1 A ccess[facility] 10 mg 2-03 01-14 t} tablet by [facility] 00:00: 00:00 oral route 00 :00 every day for blood pressure lisinopril 2018- 2020- No 1{table Q1D take 1 A ccess[facility] 10 mg 2-03 01-14 t} tablet by [facility] 00:00: 00:00 oral route 00 :00 every day for blood pressure lisinopril 2018- 2020- No 1{table Q1D take 1 A ccess[facility] 10 mg 2-03 01-14 t} tablet by [facility] 00:00: 00:00 oral route 00 :00 every day for blood pressure lisinopril 2018-08 2020- No 1{table Q1D take 1 A ccess[facility] 10 mg 2-03 01-14 t} tablet by [facility] 00:00: 00:00 oral route 00 :00 every day for blood pressure lisinopril 2018-08 2020- No 1{table Q1D take 1 A ccess[facility] 10 mg 2-10 10-14 t} tablet by [facility] 00:00: 00:00 oral route 00 :00 every day for blood pressure lisinopril 2018-08 2020- No 1{table Q1D take 1 A ccess[facility] 10 mg 2-10 10-14 t} tablet by [facility] 00:00: 00:00 oral route 00 :00 every day for blood pressure lisinopril 2018-08 2020- No 1{table Q1D take 1 A ccess[facility] 10 mg 2-10 10-14 t} tablet by [facility] 00:00: 00:00 oral route 00 :00 every day for blood pressure lisinopril 2018-08 2020- No 1{table Q1D take 1 A ccess[facility] 10 mg 2-10 10-14 t} tablet by [facility] 00:00: 00:00 oral route 00 :00 every day for blood pressure lisinopril 2018-08 2020- No 1{table Q1D take 1 A ccess[facility] 10 mg 2-08-25 t} tablet by [facility] 00:00: 00:00 oral route 00 :00 every day for blood pressure Lyrica 75 2018- 2020- No 1{capsu Q12H take 1 07/03/19 [facility] mg capsule 09-02 le} capsule by [facility] 00:00: 00:00 oral route approved 00 :00 2 times per every day 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[place] 75 2018-08 2020- No 1{capsu Q12H take 1 07/03/19 [facility] mg capsule 09-02 le} capsule by [facility] 00:00: 00:00 oral route approved 00 :00 2 times per every day 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[place] 75 2018-08 2020- No 1{capsu Q12H take 1 07/03/19 [facility] mg capsule 09-02 le} capsule by [facility] 00:00: 00:00 oral route approved 00 :00 2 times per every day 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[place] 75 2018-08 2020- No 1{capsu Q12H take 1 07/03/19 [facility] mg capsule 09-02 le} capsule by med [facility] 00:00: 00:00 oral route approved 00 :00 2 times per every day 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[place] 75 2018-08 2020- No 1{capsu Q12H take 1 07/03/19 [facility] mg capsule 09-02 le} capsule by med [facility] 00:00: 00:00 oral route approved 00 :00 2 times per every day 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[place] 75 2018-08 2020- No 1{capsu Q12H take 1 07/03/19 [facility] mg capsule 09-02 le} capsule by [facility] 00:00: 00:00 oral route approved 00 :00 2 times per every day 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[place] 75 2018-08 2020- No 1{capsu Q12H take 1 07/03/19 [facility] mg capsule 09-02 le} capsule by [facility] 00:00: 00:00 oral route approved 00 :00 2 times per every day 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[place] 75 2018-08 2020- No 1{capsu Q12H take 1 07/03/19 [facility] mg capsule 09-02 le} capsule by [facility] 00:00: 00:00 oral route approved 00 :00 2 times per every day 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[place] 75 2018-08 2020- No 1{capsu Q12H take 1 07/03/19 [facility] mg capsule 09-02 le} capsule by med [facility] 00:00: 00:00 oral route approved 00 :00 2 times per every day 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[place] 75 2018-08 2020- No 1{capsu Q12H take 1 07/03/19 [facility] mg capsule 09-02 le} capsule by med [facility] 00:00: 00:00 oral route approved 00 :00 2 times per every day 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[place] 75 2018-08 2020- No 1{capsu Q12H take 1 07/03/19 [facility] mg capsule 09-02 le} capsule by med [facility] 00:00: 00:00 oral route approved 00 :00 2 times per every day 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[place] 75 2018-08 2020- No 1{capsu Q12H take 1 07/03/19 [facility] mg capsule 09-02 le} capsule by med [facility] 00:00: 00:00 oral route approved 00 :00 2 times per every day 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[place] 75 2018-08 2020- No 1{capsu Q12H take 1 07/03/19 [facility] mg capsule 09-02 le} capsule by med [facility] 00:00: 00:00 oral route approved 00 :00 2 times per every day 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[place] 75 2018-08 2020- No 1{capsu Q12H take 1 07/03/19 [facility] mg capsule 09-02 le} capsule by [facility] 00:00: 00:00 oral route approved 00 :00 2 times per every day 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[place] 75 2018-08 2020- No 1{capsu Q12H take 1 07/03/19 [facility] mg capsule 09-02 le} capsule by med [facility] 00:00: 00:00 oral route approved 00 :00 2 times per every day 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[place] 75 2018-08 2020- No 1{capsu Q12H take 1 07/03/19 [facility] mg capsule 09-02 le} capsule by [facility] 00:00: 00:00 oral route approved 00 :00 2 times per every day 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[place] 75 2018-08 2020- No 1{capsu Q12H take 1 07/03/19 [facility] mg capsule 09-02 le} capsule by med [facility] 00:00: 00:00 oral route approved 00 :00 2 times per every day 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[place] 75 2018-08 2020- No 1{capsu Q12H take 1 07/03/19 [facility] mg capsule 09-02 le} capsule by [facility] 00:00: 00:00 oral route approved 00 :00 2 times per every day 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[place] 75 2018-08 2020- No 1{capsu Q12H take 1 07/03/19 [facility] mg capsule 09-02 le} capsule by [facility] 00:00: 00:00 oral route approved 00 :00 2 times per every day 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[place] 75 2018-08 2020- No 1{capsu Q12H take 1 07/03/19 [facility] mg capsule 09-02 le} capsule by [facility] 00:00: 00:00 oral route approved 00 :00 2 times per every day 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[place] 75 2018-08 2020- No 1{capsu Q12H take 1 07/03/19 [facility] mg capsule 09-02 le} capsule by [facility] 00:00: 00:00 oral route approved 00 :00 2 times per every day 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[place] 75 2018-08 2020- No 1{capsu Q12H take 1 07/03/19 [facility] mg capsule 09-02 le} capsule by [facility] 00:00: 00:00 oral route approved 00 :00 2 times per every day 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lisinopril 2018- 2019- No 1{table Q1D take 1 A ccessH 5 mg tablet 0-03 10-03 t} tablet by [facility] 09:54: 00:00 oral route 00 :00 every day lisinopril 2018- 2019- No 1{table Q1D take 1 A ccessH 5 mg tablet 0-03 10-03 t} tablet by [facility] 09:54: 00:00 oral route 00 :00 every day lisinopril 2018- 2019- No 1{table Q1D take 1 A ccessH 5 mg tablet 0-03 10-03 t} tablet by [facility] 09:54: 00:00 oral route 00 :00 every day lisinopril 2018- 2019- No 1{table Q1D take 1 A ccessH 5 mg tablet 0-03 10-03 t} tablet by [facility] 09:54: 00:00 oral route 00 :00 every day lisinopril 2018- 2019- No 1{table Q1D take 1 A ccessH 5 mg tablet 0-03 10-03 t} tablet by [facility] 09:54: 00:00 oral route 00 :00 every day lisinopril 2018-08 2019- No 1{table Q1D take 1 A ccessH 5 mg tablet 0-03 10-03 t} tablet by [facility] 09:54: 00:00 oral route 00 :00 every day lisinopril 2018-08 2019- No 1{table Q1D take 1 A ccessH 5 mg tablet 0-03 10-03 t} tablet by [facility] 09:54: 00:00 oral route 00 :00 every day lisinopril 2018- 2019- No 1{table Q1D take 1 A ccessH 5 mg tablet 0-03 10-03 t} tablet by [facility] 09:54: 00:00 oral route 00 :00 every day lisinopril 2018-08 2019- No 1{table Q1D take 1 A ccessH 5 mg tablet 0-03 10-03 t} tablet by [facility] 09:54: 00:00 oral route 00 :00 every day metformin 2018- 2019- No 1{table Q12H take 1 Ac cess[facility] ER 500 mg 0-03 10-03 t} tablet by [facility] tablet,[facility]te 09:52: 00:00 oral route nded 00 :00 2 times release 24 every day hr with the evening meal metformin 2018-08 2019- No 1{table Q12H take 1 Ac cess[facility] ER 500 mg 0-03 10-03 t} tablet by [facility] tablet,exte 09:52: 00:00 oral route nded 00 :00 2 times release 24 every day hr with the evening meal metformin 2018- 2019- No 1{table Q12H take 1 Ac cess[facility] ER 500 mg 0-03 10-03 t} tablet by [facility] tablet,exte 09:52: 00:00 oral route nded 00 :00 2 times release 24 every day hr with the evening meal metformin 2018-08 2019- No 1{table Q12H take 1 Ac cess[facility] ER 500 mg 0-03 10-03 t} tablet by [facility] tablet,exte 09:52: 00:00 oral route nded 00 :00 2 times release 24 every day hr with the evening meal metformin 2018-2018- No 1{table Q12H take 1 Ac cess[facility] ER 500 mg 0-03 10-03 t} tablet by [facility] tablet,exte 09:52: 00:00 oral route nded 00 :00 2 times release 24 every day hr with the evening meal metformin 2018-08- No 1{table Q12H take 1 Ac cess[facility] ER 500 mg 0-03 10-03 t} tablet by [facility] tablet,exte 09:52: 00:00 oral route nded 00 :00 2 times release 24 every day hr with the evening meal metformin 2018-08- No 1{table Q12H take 1 Ac cess[facility] ER 500 mg 0-03 10-03 t} tablet by [facility] tablet,exte 09:52: 00:00 oral route nded 00 :00 2 times release 24 every day hr with the evening meal metformin 2018-08- No 1{table Q12H take 1 Ac cess[facility] ER 500 mg 0-03 10-03 t} tablet by [facility] tablet,exte 09:52: 00:00 oral route nded 00 :00 2 times release 24 every day hr with the evening meal metformin 2018-08- No 1{table Q12H take 1 Ac cess[facility] ER 500 mg 0-03 10-03 t} tablet by [facility] tablet,exte 09:52: 00:00 oral route nded 00 :00 2 times release 24 every day hr with the evening meal glimepiride 2018-08- No take 1 Acc [facility] 1 mg tablet 0-03 10-03 tablet by e[facility] 09:51: 00:00 oral route 00 :00 every day in the morning with food glimepiride 2018-08- No take 1 Acc [facility] 1 mg tablet 0-03 10-03 tablet by ea [facility] 09:51: 00:00 oral route 00 :00 every day in the morning with food glimepiride 2018-08- No take 1 Acc [facility] 1 mg tablet 0-03 10-03 tablet by e[facility] 09:51: 00:00 oral route 00 :00 every day in the morning with food glimepiride 2018-08- No take 1 Acc [facility] 1 mg tablet 0-03 10-03 tablet by [facility] 09:51: 00:00 oral route 00 :00 every day in the morning with food glimepiride 2018-08- No take 1 Acc [facility] 1 mg tablet 0-03 10-03 tablet by [facility] 09:51: 00:00 oral route 00 :00 every day in the morning with food glimepiride 2018-08- No take 1 Acc [facility] 1 mg tablet 0-03 10-03 tablet by [facility] 09:51: 00:00 oral route 00 :00 every day in the morning with food glimepiride 2018-08- No take 1 Acc [facility] 1 mg tablet 0-03 10-03 tablet by [facility] 09:51: 00:00 oral route 00 :00 every day in the morning with food glimepiride 2018-08- No take 1 Acc [facility] 1 mg tablet 0-03 10-03 tablet by [facility] 09:51: 00:00 oral route 00 :00 every day in the morning with food glimepiride 2018-08- No take 1 Acc [facility] 1 mg tablet 0-03 10-03 tablet by [facility] 09:51: 00:00 oral route 00 :00 every day in the morning with food glimepiride 2018-08- No take 1 Acc ess[facility] 1 mg tablet 0-03 01-14 tablet by [facility] 00:00: 00:00 oral route 00 :00 every day in the morning with food metformin 2018-08- No 1{table Q12H take 1 Ac cessH 500 mg 0-03 01-14 t} tablet by [facility] tablet 00:00: 00:00 oral route 00 :00 2 times every day with morning and evening meals glimepiride 2018-08- No take 1 Acc ess[facility] 1 mg tablet 0-03 01-14 tablet by [facility] 00:00: 00:00 oral route 00 :00 every day in the morning with food metformin 2018-08- No 1{table Q12H take 1 Ac cessH 500 mg 0-03 01-14 t} tablet by [facility] tablet 00:00: 00:00 oral route 00 :00 2 times every day with morning and evening meals glimepiride 2018-08- No take 1 Acc ess[facility] 1 mg tablet 0-03 01-14 tablet by lt 00:00: 00:00 oral route 00 :00 every day in the morning with food metformin 2018-08- No 1{table Q12H take 1 Ac cess[facility] 500 mg 0-03 01-14 t} tablet by [facility] tablet 00:00: 00:00 oral route 00 :00 2 times every day with morning and evening meals metformin 2018-08- No 1{table Q12H take 1 Ac cessH 500 mg 0-03 01-14 t} tablet by [facility] tablet 00:00: 00:00 oral route 00 :00 2 times every day with morning and evening meals glimepiride 2018-08- No take 1 Acc [facility] 1 mg tablet 0-03 01-14 tablet by lt 00:00: 00:00 oral route 00 :00 every day in the morning with food glimepiride 2018-08- No take 1 [facility] 1 mg tablet 0-03 -14 tablet by lt 00:00: 00:00 oral route 00 :00 every day in the morning with food metformin 2018-08- No 1{table Q12H take 1 [facility] 500 mg 0-03 01-14 t} tablet by [facility] tablet 00:00: 00:00 oral route 00 :00 2 times every day with morning and evening meals glimepiride 2018-08- No take 1 [facility] 1 mg tablet 0-03 -14 tablet by lth 00:00: 00:00 oral route 00 :00 every day in the morning with food metformin 2018-08- No 1{table Q12H take 1 [facility] 500 mg 0-03 01-14 t} tablet by [facility] tablet 00:00: 00:00 oral route 00 :00 2 times every day with morning and evening meals glimepiride 2018-08- No take 1 [facility] 1 mg tablet 0-03 01-14 tablet by ea lt 00:00: 00:00 oral route 00 :00 every day in the morning with food metformin 2018-08- No 1{table Q12H take 1 [facility] 500 mg 0-03 01-14 t} tablet by [facility] tablet 00:00: 00:00 oral route 00 :00 2 times every day with morning and evening meals glimepiride 2018-08- No take 1 [facility] 1 mg tablet 0-03 -14 tablet by lt 00:00: 00:00 oral route 00 :00 every day in the morning with food metformin 2018-08- No 1{table Q12H take 1 [facility] 500 mg 0-03 -14 t} tablet by ealt tablet 00:00: 00:00 oral route 00 :00 2 times every day with morning and evening meals glimepiride 2018-08- No take 1 [facility] 1 mg tablet 0-03 -14 tablet by lt 00:00: 00:00 oral route 00 :00 every day in the morning with food metformin 2018-08- No 1{table Q12H take 1 [facility] 500 mg 0-03 -14 t} tablet by ealt tablet 00:00: 00:00 oral route 00 :00 2 times every day with morning and evening meals glimepiride 2018-08- No take 1 [facility] 1 mg tablet 0-03 -14 tablet by [facility] 00:00: 00:00 oral route 00 :00 every day in the morning with food metformin 2018-08- No 1{table Q12H take 1 [facility] 500 mg 0-03 -14 t} tablet by ealt tablet 00:00: 00:00 oral route 00 :00 2 times every day with morning and evening meals glimepiride 2018-08- No take 1 [facility] 1 mg tablet 0-03 -14 tablet by lt 00:00: 00:00 oral route 00 :00 every day in the morning with food metformin 2018-08- No 1{table Q12H take 1 [facility] 500 mg 0-03 01-14 t} tablet by ealt tablet 00:00: 00:00 oral route 00 :00 2 times every day with morning and evening meals glimepiride 2018-08- No take 1 [facility] 1 mg tablet 0-03 -14 tablet by lt 00:00: 00:00 oral route 00 :00 every day in the morning with food metformin 2018-08- No 1{table Q12H take 1 [facility] 500 mg 0-03 01-14 t} tablet by e[facility] tablet 00:00: 00:00 oral route 00 :00 2 times every day with morning and evening meals glimepiride 2018-08 2020- No take 1 [facility] 1 mg tablet 0-03 -14 tablet by ea lth 00:00: 00:00 oral route 00 :00 every day in the morning with food metformin 2018-08- No 1{table Q12H take 1 [facility] 500 mg 0-03 01-14 t} tablet by [facility] tablet 00:00: 00:00 oral route 00 :00 2 times every day with morning and evening meals glimepiride 2018-08- No take 1 [facility] 1 mg tablet 0-03 -14 tablet by ea lth 00:00: 00:00 oral route 00 :00 every day in the morning with food metformin 2018-08 2020- No 1{table Q12H take 1 [facility] 500 mg 0-03 01-14 t} tablet by [facility] tablet 00:00: 00:00 oral route 00 :00 2 times every day with morning and evening meals glimepiride 2018-08 2020- No take 1 [facility] 1 mg tablet 0-03 -14 tablet by ea lth 00:00: 00:00 oral route 00 :00 every day in the morning with food metformin 2018-08 2020- No 1{table Q12H take 1 [facility] 500 mg 0-03 01-14 t} tablet by [facility] tablet 00:00: 00:00 oral route 00 :00 2 times every day with morning and evening meals glimepiride 2018-08 2020- No take 1 [facility] 1 mg tablet 0-03 -14 tablet by ea lth 00:00: 00:00 oral route 00 :00 every day in the morning with food metformin 2018-08- No 1{table Q12H take 1 [facility] 500 mg 0-03 01-14 t} tablet by e[facility] tablet 00:00: 00:00 oral route 00 :00 2 times every day with morning and evening meals glimepiride 2018-08 2020- No take 1 [facility] 1 mg tablet 0-03 -14 tablet by ea lth 00:00: 00:00 oral route 00 :00 every day in the morning with food metformin 2018-08- No 1{table Q12H take 1 [facility] 500 mg 0-03 01-14 t} tablet by [facility] tablet 00:00: 00:00 oral route 00 :00 2 times every day with morning and evening meals glimepiride 2018-08 2020- No take 1 [facility] 1 mg tablet 0-03 -14 tablet by lt 00:00: 00:00 oral route 00 :00 every day in the morning with food metformin 2018-08- No 1{table Q12H take 1 [facility] 500 mg 0-03 -14 t} tablet by [facility] tablet 00:00: 00:00 oral route 00 :00 2 times every day with morning and evening meals glimepiride 2018-08- No take 1 [facility] 1 mg tablet 0-03 -14 tablet by lt 00:00: 00:00 oral route 00 :00 every day in the morning with food metformin 2018-08- No 1{table Q12H take 1 [facility] 500 mg 0-03 -14 t} tablet by [facility] tablet 00:00: 00:00 oral route 00 :00 2 times every day with morning and evening meals glimepiride 2018-08- No take 1 [facility] 1 mg tablet 0-10 10-14 tablet by lt 00:00: 00:00 oral route 00 :00 every day in the morning with food metformin 2018-08- No 1{table Q12H take 1 [facility] 500 mg 0-03 -14 t} tablet by [facility] tablet 00:00: 00:00 oral route 00 :00 2 times every day with morning and evening meals glimepiride 2018-08- No take 1 [facility] 1 mg tablet 0-03 -14 tablet by ea lt 00:00: 00:00 oral route 00 :00 every day in the morning with food metformin 2018-08- No 1{table Q12H take 1 [facility] 500 mg 0-03 01-14 t} tablet by e[facility] tablet 00:00: 00:00 oral route 00 :00 2 times every day with morning and evening meals glimepiride 2018-08- No take 1 [facility] 1 mg tablet 0-03 -14 tablet by ea lt 00:00: 00:00 oral route 00 :00 every day in the morning with food metformin 2019- 2020- No 1{table Q12H take 1 [facility] 500 mg 0-03 -14 t} tablet by [facility] tablet 00:00: 00:00 oral route 00 :00 2 times every day with morning and evening meals gabapentin 2019- 2019- No 1{capsu Q8H take 1 A ccess[facility] 100 mg 0-03 12-03 le} capsule by [facility] capsule 00:00: 00:00 oral route 00 :00 3 times every day lisinopril 2019- 2019- No 1{table Q1D take 1 A [facility] 5 mg tablet 0-03 12-03 t} tablet by ea lth 00:00: 00:00 oral route 00 :00 every day gabapentin 2019- 2019- No 1{capsu Q8H take 1 A ccess[facility] 100 mg 0-03 12-03 le} capsule by ealt capsule 00:00: 00:00 oral route 00 :00 3 times every day lisinopril 2019- 2019- No 1{table Q1D take 1 A [facility] 5 mg tablet 0-03 12-03 t} tablet by ea lth 00:00: 00:00 oral route 00 :00 every day gabapentin 2019- 2019- No 1{capsu Q8H take 1 A [facility] 100 mg 0-03 12-03 le} capsule by [facility] capsule 00:00: 00:00 oral route 00 :00 3 times every day lisinopril 2019- 2019- No 1{table Q1D take 1 A [facility] 5 mg tablet 0-03 12-03 t} tablet by ea lth 00:00: 00:00 oral route 00 :00 every day lisinopril 2019- 2019- No 1{table Q1D take 1 A [facility] 5 mg tablet 0-03 12-03 t} tablet by ea lth 00:00: 00:00 oral route 00 :00 every day gabapentin 2019-1 2019- No 1{capsu Q8H take 1 A ccess[facility] 100 mg 0-03 12-03 le} capsule by ealt capsule 00:00: 00:00 oral route 00 :00 3 times every day gabapentin 2019- 2019- No 1{capsu Q8H take 1 A ccess[facility] 100 mg 0-03 12-03 le} capsule by [facility] capsule 00:00: 00:00 oral route 00 :00 3 times every day lisinopril 2019- 2019- No 1{table Q1D take 1 A [facility] 5 mg tablet 0-03 12-03 t} tablet by ea lth 00:00: 00:00 oral route 00 :00 every day gabapentin 2019- 2019- No 1{capsu Q8H take 1 A ccess[facility] 100 mg 0-03 12-03 le} capsule by ealth capsule 00:00: 00:00 oral route 00 :00 3 times every day lisinopril 2019- 2019- No 1{table Q1D take 1 A [facility] 5 mg tablet 0-03 12-03 t} tablet by ea lth 00:00: 00:00 oral route 00 :00 every day gabapentin 2019- 2019- No 1{capsu Q8H take 1 A ccess[facility] 100 mg 0-03 12-03 le} capsule by [facility] capsule 00:00: 00:00 oral route 00 :00 3 times every day lisinopril 2019- 2019- No 1{table Q1D take 1 A [facility] 5 mg tablet 0-03 12-03 t} tablet by ea lth 00:00: 00:00 oral route 00 :00 every day gabapentin 2019-1 2019- No 1{capsu Q8H take 1 A ccess[facility] 100 mg 0-03 12-03 le} capsule by [facility] capsule 00:00: 00:00 oral route 00 :00 3 times every day lisinopril 2019-1 2019- No 1{table Q1D take 1 A [facility] 5 mg tablet 0-03 12-03 t} tablet by ea lth 00:00: 00:00 oral route 00 :00 every day gabapentin 2019-1 2019- No 1{capsu Q8H take 1 A ccess[facility] 100 mg 0-03 12-03 le} capsule by [facility] capsule 00:00: 00:00 oral route 00 :00 3 times every day lisinopril 2019- 2019- No 1{table Q1D take 1 A [facility] 5 mg tablet 0-03 12-03 t} tablet by ea lth 00:00: 00:00 oral route 00 :00 every day gabapentin 2019- 2019- No 1{capsu Q8H take 1 A ccess[facility] 100 mg 0-03 12-03 le} capsule by e[facility] capsule 00:00: 00:00 oral route 00 :00 3 times every day lisinopril 2019-1 2019- No 1{table Q1D take 1 A [facility] 5 mg tablet 0-03 12-03 t} tablet by ea lth 00:00: 00:00 oral route 00 :00 every day gabapentin 2019- 2019- No 1{capsu Q8H take 1 A ccess[facility] 100 mg 0-03 12-03 le} capsule by [facility] capsule 00:00: 00:00 oral route 00 :00 3 times every day lisinopril 2019-1 2019- No 1{table Q1D take 1 A [facility] 5 mg tablet 0-03 12-03 t} tablet by ea lt 00:00: 00:00 oral route 00 :00 every day gabapentin 2019- 2019- No 1{capsu Q8H take 1 A ccess[facility] 100 mg 0-03 12-03 le} capsule by [facility] capsule 00:00: 00:00 oral route 00 :00 3 times every day lisinopril 2019-1 2019- No 1{table Q1D take 1 A [facility] 5 mg tablet 0-03 12-03 t} tablet by ea lth 00:00: 00:00 oral route 00 :00 every day gabapentin 2019-1 2019- No 1{capsu Q8H take 1 A ccess[facility] 100 mg 0-03 12-03 le} capsule by [facility] capsule 00:00: 00:00 oral route 00 :00 3 times every day lisinopril 2019-1 2019- No 1{table Q1D take 1 A ccess[facility] 5 mg tablet 0-03 12-03 t} tablet by ea lth 00:00: 00:00 oral route 00 :00 every day gabapentin 2019-1 2019- No 1{capsu Q8H take 1 A ccess[facility] 100 mg 0-03 12-03 le} capsule by [facility] capsule 00:00: 00:00 oral route 00 :00 3 times every day lisinopril 2019- 2019- No 1{table Q1D take 1 A ccess[facility] 5 mg tablet 0-03 12-03 t} tablet by ea lt 00:00: 00:00 oral route 00 :00 every day gabapentin 2019- 2019- No 1{capsu Q8H take 1 A ccess[facility] 100 mg 0-03 12-03 le} capsule by [facility] capsule 00:00: 00:00 oral route 00 :00 3 times every day lisinopril 2019- 2019- No 1{table Q1D take 1 A ccess[facility] 5 mg tablet 0-03 12-03 t} tablet by [facility] 00:00: 00:00 oral route 00 :00 every day gabapentin 2019- 2019- No 1{capsu Q8H take 1 A ccess[facility] 100 mg 0-03 12-03 le} capsule by ealt capsule 00:00: 00:00 oral route 00 :00 3 times every day lisinopril 2019- 2019- No 1{table Q1D take 1 A ccess[facility] 5 mg tablet 0-03 12-03 t} tablet by [facility] 00:00: 00:00 oral route 00 :00 every day gabapentin 2019- 2019- No 1{capsu Q8H take 1 A ccess[facility] 100 mg 0-03 12-03 le} capsule by ealt capsule 00:00: 00:00 oral route 00 :00 3 times every day lisinopril 2019-1 2019- No 1{table Q1D take 1 A ccess[facility] 5 mg tablet 0-03 12-03 t} tablet by [facility] 00:00: 00:00 oral route 00 :00 every day gabapentin 2019-1 2019- No 1{capsu Q8H take 1 A ccess[facility] 100 mg 0-03 12-03 le} capsule by ealt capsule 00:00: 00:00 oral route 00 :00 3 times every day lisinopril 2019-1 2019- No 1{table Q1D take 1 A ccess[facility] 5 mg tablet 0-03 12-03 t} tablet by [facility] 00:00: 00:00 oral route 00 :00 every day gabapentin 2019-1 2019- No 1{capsu Q8H take 1 A ccess[facility] 100 mg 0-03 12-03 le} capsule by [facility] capsule 00:00: 00:00 oral route 00 :00 3 times every day lisinopril 2019-1 2019- No 1{table Q1D take 1 A ccess[facility] 5 mg tablet 0-03 12-03 t} tablet by ea lth 00:00: 00:00 oral route 00 :00 every day gabapentin 2018- 2019- No 1{capsu Q8H take 1 A ccess[facility] 100 mg 0-03 12-03 le} capsule by [facility] capsule 00:00: 00:00 oral route 00 :00 3 times every day lisinopril 2019- 2019- No 1{table Q1D take 1 A [facility]cess[facility] 5 mg tablet 0-03 12-03 t} tablet by ea lth 00:00: 00:00 oral route 00 :00 every day gabapentin 2019- 2019- No 1{capsu Q8H take 1 A ccess[facility] 100 mg 0- 12- le} capsule by [facility]alth capsule 00:00: 00:00 oral route 00 :00 3 times every day lisinopril 2019- 2019- No 1{table Q1D take 1 A ccess[facility] 5 mg tablet 0- 12-03 t} tablet by ea lth 00:00: 00:00 oral route 00 :00 every day gabapentin 2019- 2019- No 1{capsu Q8H take 1 A ccess[facility] 100 mg 0-03 12-03 le} capsule by [facility] capsule 00:00: 00:00 oral route 00 :00 3 times every day lisinopril 2019- 2019- No 1{table Q1D take 1 A [facility] 5 mg tablet 0- 12-03 t} tablet by ea lth 00:00: 00:00 oral route 00 :00 every day aspirin 81 No take 1 Please [facility] mg tablet by discard [facility] tablet,wolfgang oral route any yed release every day remaining at bedtime refills for heart from previous scripts aspirin 81 No take 1 Please [facility] mg tablet by discard [facility] tablet,wolfgang oral route any yed release every day remaining at bedtime refills for heart from previous scripts aspirin 81 No take 1 Please [facility] mg tablet by [facility] tablet,[place] oral route any yed release every day remaining at bedtime refills for heart from previous scripts aspirin 81 No take 1 Please [facility] mg tablet by [facility] tablet,[place] oral route any yed release every day remaining at bedtime refills for heart from previous scripts aspirin 81 No take 1 Please [facility] mg tablet by [facility] tablet,[place] oral route any yed release every day remaining at bedtime refills for heart from previous scripts aspirin 81 No take 1 Please [facility] mg tablet by [facility] tablet,wolfgang oral route any yed release every day remaining at bedtime refills for heart from previous scripts aspirin 81 No take 1 Please [facility] mg tablet by discard [facility] tablet,[place]gang oral route any yed release every day remaining at bedtime refills for heart from previous scripts aspirin 81 No take 1 Please [facility] mg tablet by [facility] tablet,wolfgang oral route any yed release every day remaining at bedtime refills for heart from previous scripts aspirin 81 2021- No take 1 Please [facility] mg 07-11 tablet by discard [facility] tablet,wolfgang 00:00 oral route any yed release :00 every day remaining at bedtime refills for heart from previous scripts aspirin 81 2021- No take 1 Please [facility] mg 07-11 tablet by discard [facility] tablet,wolfgang 00:00 oral route any yed release :00 every day remaining at bedtime refills for heart from previous scripts lisinopril 2019- No 1{table Q1D take 1 [facility] 5 mg tablet 10-03 t} tablet by ea l[facility] 00:00 oral route :00 every day metformin 2019- No 1{table Q12H take 1 [facility] ER 500 mg 10-03 t} tablet by ealt h tablet,exte 00:00 oral route nded :00 2 times release 24 every day hr with the evening meal glimepiride 2019- No take 1 [facility] 1 mg tablet 10-03 tablet by ea lth 00:00 oral route :00 every day in the morning with food lisinopril 2019- No 1{table Q1D take 1 [facility] 5 mg tablet 10-03 t} tablet by ea l[facility] 00:00 oral route :00 every day metformin 2019- No 1{table Q12H take 1 [facility] ER 500 mg 10-03 t} tablet by ealt h tablet,exte 00:00 oral route nded :00 2 times release 24 every day hr with the evening meal glimepiride 2019- No take 1 [facility] 1 mg tablet 10-03 tablet by ea lth 00:00 oral route :00 every day in the morning with food lisinopril 2019- No 1{table Q1D take 1 [facility] 5 mg tablet 10-03 t} tablet by ea [facility] 00:00 oral route :00 every day metformin 2019- No 1{table Q12H take 1 [facility] ER 500 mg 10-03 t} tablet by ealt h tablet,exte 00:00 oral route nded :00 2 times release 24 every day hr with the evening meal glimepiride 2019- No take 1 [facility] 1 mg tablet 10-03 tablet by ea l[facility] 00:00 oral route :00 every day in the morning with food glimepiride 2019- No take 1 [facility] 1 mg tablet 10-03 tablet by ea lt 00:00 oral route :00 every day in the morning with food metformin 2019- No 1{table Q12H take 1 [facility] ER 500 mg 10-03 t} tablet by ealt h tablet,exte 00:00 oral route nded :00 2 times release 24 every day hr with the evening meal lisinopril 2019- No 1{table Q1D take 1 [facility] 5 mg tablet 10-03 t} tablet by ea l[facility] 00:00 oral route :00 every day lisinopril 2019- No 1{table Q1D take 1 [facility] 5 mg tablet 10-03 t} tablet by ea lt 00:00 oral route :00 every day metformin 2019- No 1{table Q12H take 1 [facility] ER 500 mg 10-03 t} tablet by ealt h tablet,exte 00:00 oral route nded :00 2 times release 24 every day hr with the evening meal glimepiride 2019- No take 1 [facility] 1 mg tablet 10-03 tablet by ea l[facility] 00:00 oral route :00 every day in the morning with food lisinopril 2019- No 1{table Q1D take 1 [facility] 5 mg tablet 10-03 t} tablet by ea lt 00:00 oral route :00 every day metformin 2019- No 1{table Q12H take 1 [facility] ER 500 mg 10-03 t} tablet by ealt h tablet,exte 00:00 oral route nded :00 2 times release 24 every day hr with the evening meal glimepiride 2019- No take 1 [facility] 1 mg tablet 10-03 tablet by ea lt 00:00 oral route :00 every day in the morning with food lisinopril 2019- No 1{table Q1D take 1 [facility] 5 mg tablet 10-03 t} tablet by ea l[facility] 00:00 oral route :00 every day metformin 2019- No 1{table Q12H take 1 [facility] ER 500 mg 10-03 t} tablet by ealt h tablet,exte 00:00 oral route nded :00 2 times release 24 every day hr with the evening meal glimepiride 2019- No take 1 [facility] 1 mg tablet 10-03 tablet by ea lt 00:00 oral route :00 every day in the morning with food lisinopril 2019- No 1{table Q1D take 1 [facility] 5 mg tablet 10-03 t} tablet by lt 00:00 oral route :00 every day metformin 2019- No 1{table Q12H take 1 [facility] ER 500 mg 10-03 t} tablet by ealt h tablet,exte 00:00 oral route nded :00 2 times release 24 every day hr with the evening meal glimepiride 2019- No take 1 [facility] 1 mg tablet 10-03 tablet by ea lt 00:00 oral route :00 every day in the morning with food lisinopril 2019- No 1{table Q1D take 1 [facility] 5 mg tablet 10-03 t} tablet by lt 00:00 oral route :00 every day metformin 2019- No 1{table Q12H take 1 [facility] ER 500 mg 10-03 t} tablet by ealt h tablet,exte 00:00 oral route nded :00 2 times release 24 every day hr with the evening meal glimepiride 2019- No take 1 [facility] 1 mg tablet 10-03 tablet by ea lt 00:00 oral route :00 every day in the morning with food lisinopril 2019- No 1{table Q1D take 1 [facility] 5 mg tablet 10-03 t} tablet by ea lt 00:00 oral route :00 every day metformin 2019- No 1{table Q12H take 1 [facility] ER 500 mg 10-03 t} tablet by ealt h tablet,exte 00:00 oral route nded :00 2 times release 24 every day hr with the evening meal glimepiride 2019- No take 1 [facility] 1 mg tablet 10-03 tablet by ea lt 00:00 oral route :00 every day in the morning with food lisinopril 2019- No 1{table Q1D take 1 [facility] 5 mg tablet 10-03 t} tablet by lt 00:00 oral route :00 every day metformin 2019- No 1{table Q12H take 1 [facility] ER 500 mg 10-03 t} tablet by ealt h tablet,exte 00:00 oral route nded :00 2 times release 24 every day hr with the evening meal glimepiride 2019- No take 1 [facility] 1 mg tablet 10-03 tablet by lt 00:00 oral route :00 every day in the morning with food glimepiride 2019- No take 1 [facility] 1 mg tablet 10-03 tablet by [facility] 00:00 oral route :00 every day in the morning with food metformin 2019- No 1{table Q12H take 1 [facility] ER 500 mg 10-03 t} tablet by ealt h tablet,exte 00:00 oral route nded :00 2 times release 24 every day hr with the evening meal lisinopril 2019- No 1{table Q1D take 1 [facility] 5 mg tablet 10-03 t} tablet by [facility] 00:00 oral route :00 every day glimepiride 2019- No take 1 [facility] 1 mg tablet 10-03 tablet by [facility] 00:00 oral route :00 every day in the morning with food metformin 2019- No 1{table Q12H take 1 [facility] ER 500 mg 10-03 t} tablet by ealt h tablet,exte 00:00 oral route nded :00 2 times release 24 every day hr with the evening meal lisinopril 2019- No 1{table Q1D take 1 [facility] 5 mg tablet 10-03 t} tablet by [facility] 00:00 oral route :00 every day Immunizations Ordered Filled Date Status Comments Source Immunization Name Immunization Name Zoster 2021-08-12 Completed Note: Verified pt [facility] 4 name and . 00:00:00 Administered injection without complications. Pt tolerated well.[id number] -03 GURU Grewal ; Source: New Immunization Record Zoster 2021-08-12 Completed Note: Verified pt [facility] 4 name and . 00:00:00 Administered injection without complications. Pt tolerated well.[id number] -03 GURU Grewal ; Source: New Immunization Record Zoster 2021-08-12 Completed Note: Verified pt [facility] 4 name and . 00:00:00 Administered injection without complications. Pt tolerated well.ND:[id number] -Carmelo Grewal LVN ; Source: New Immunization Record Zoster 2021-08-12 Completed Note: Verified pt [facility] 4 name and . 00:00:00 Administered injection without complications. Pt tolerated well.[id number] -Carmelo Grewal LVN ; Source: New Immunization Record Zoster 2021-08-12 Completed Note: Verified pt [facility] 4 name and . 00:00:00 Administered injection without complications. Pt tolerated well.[id number] -Carmelo Grewal LVN ; Source: New Immunization Record Zoster 2021-08-12 Completed Note: Verified pt [facility] 4 name and . 00:00:00 Administered injection without complications. Pt tolerated well.[facility]:[id number] -Carmelo Grewal LVN ; Source: New Immunization Record Zoster 2021-08-12 Completed Note: Verified pt [facility] 4 name and . 00:00:00 Administered injection without complications. Pt tolerated well.[id number] -Carmelo Grewal LVN ; Source: New Immunization Record Zoster 2021-08-12 Completed Note: Verified pt [facility] 4 name and . 00:00:00 Administered injection without complications. Pt tolerated well.[facility]:[id number] -Carmelo Grewal LVN ; Source: New Immunization Record Zoster 2021-08-12 Completed Note: Verified pt [facility] 4 name and . 00:00:00 Administered injection without complications. Pt tolerated well.[id number] -Carmelo Grewal LVN ; Source: New Immunization Record Zoster 2021-08-12 Completed Note: Verified pt [facility] 4 name and . 00:00:00 Administered injection without complications. Pt tolerated well.[facility]:[id number] -03 GURU Grewal ; Source: New Immunization Record Zoster 2021-08-12 Completed Note: Verified pt [facility] 4 name and . 00:00:00 Administered injection without complications. Pt tolerated well.[id number] -03 GURU Grewal ; Source: New Immunization Record Zoster 2021-08-12 Completed Note: Verified pt [facility] 4 name and . 00:00:00 Administered injection without complications. Pt tolerated well.[facility]:[id number] -03 GURU Grewal ; Source: New Immunization Record Zoster 2021-08-12 Completed Note: Verified pt [facility] 4 name and . 00:00:00 Administered injection without complications. Pt tolerated well.[facility]:[id number] -03 GURU Grewal ; Source: New Immunization Record Zoster 2021-08-12 Completed Note: Verified pt [facility] 4 name and . 00:00:00 Administered injection without complications. Pt tolerated well.[facility]:[id number] -03 GURU Grewal ; Source: New Immunization Record Zoster 2021-08-12 Completed Note: Verified pt [facility] 4 name and . 00:00:00 Administered injection without complications. Pt tolerated well.[facility]:[id number] -03 GURU Grewal ; Source: New Immunization Record Zoster 2021-08-12 Completed Note: Verified pt [facility] 4 name and . 00:00:00 Administered injection without complications. Pt tolerated well.ND:[id number] -03 GURU Grewal ; Source: New Immunization Record Zoster 2021-08-12 Completed Note: Verified pt [facility] 4 name and . 00:00:00 Administered injection without complications. Pt tolerated well.ND:[id number] -03 GURU Grewal ; Source: New Immunization Record Hep B (adult) 2021-05-12 Completed Note: verified pt [facility] 5 name allergies 00:00:00 admin without complications pt tolerated well--wm/agricultural equipment operator ; Source: New Immunization Record ZOSTER 2021-05-12 Completed Note: verified pt [facility] 5 name allergies 00:00:00 admin without complications pt tolerated well--wm/agricultural equipment operator ; Source: New Immunization Record Flu (split) (3 yrs 2021-05-12 Completed Note: verified pt [facility] or older) 5 name allergies 00:00:00 admin without complications pt tolerated well--wm/agricultural equipment operator ; Source: New Immunization Record Hep B (adult) 2021-05-12 Completed Note: verified pt [facility] 5 name allergies 00:00:00 admin without complications pt tolerated well--wm/agricultural equipment operator ; Source: New Immunization Record ZOSTER 2021-05-12 Completed Note: verified pt [facility] 5 name allergies 00:00:00 admin without complications pt tolerated well--wm/agricultural equipment operator ; Source: New Immunization Record Flu (split) (3 yrs 2021-05-12 Completed Note: verified pt [facility] or older) 5 name allergies 00:00:00 admin without complications pt tolerated well--wm/agricultural equipment operator ; Source: New Immunization Record Hep B (adult) 2021-05-12 Completed Note: verified pt [facility] 5 name allergies 00:00:00 admin without complications pt tolerated well--wm/agricultural equipment operator ; Source: New Immunization Record [facility]OST[facility] 2021-05-12 Completed Note: verified pt [facility] 5 name allergies 00:00:00 admin without complications pt tolerated well--wm/agricultural equipment operator ; Source: New Immunization Record Flu (split) (3 yrs 2021-05-12 Completed Note: verified pt [facility] or older) 5 name allergies 00:00:00 admin without complications pt tolerated well--wm/agricultural equipment operator ; Source: New Immunization Record Hep B (adult) 2021-05-12 Completed Note: verified pt [facility] 5 name allergies 00:00:00 admin without complications pt tolerated well--wm/agricultural equipment operator ; Source: New Immunization Record [facility]OST[facility] 2021-05-12 Completed Note: verified pt [facility] 5 name allergies 00:00:00 admin without complications pt tolerated well--wm/agricultural equipment operator ; Source: New Immunization Record Flu (split) (3 yrs 2021-05-12 Completed Note: verified pt [facility] or older) 5 name allergies 00:00:00 admin without complications pt tolerated well--wm/agricultural equipment operator ; Source: New Immunization Record Hep B (adult) 2021-05-12 Completed Note: verified pt [facility] 5 name allergies 00:00:00 admin without complications pt tolerated well--wm/agricultural equipment operator ; Source: New Immunization Record [facility]OST[facility] 2021-05-12 Completed Note: verified pt [facility] 5 name allergies 00:00:00 admin without complications pt tolerated well--wm/agricultural equipment operator ; Source: New Immunization Record Flu (split) (3 yrs 2021-05-12 Completed Note: verified pt [facility] or older) 5 name allergies 00:00:00 admin without complications pt tolerated well--wm/agricultural equipment operator ; Source: New Immunization Record Hep B (adult) 2021-05-12 Completed Note: verified pt [facility] 5 name allergies 00:00:00 admin without complications pt tolerated well--wm/agricultural equipment operator ; Source: New Immunization Record ZOSTER 2021-05-12 Completed Note: verified pt [facility] 5 name allergies 00:00:00 admin without complications pt tolerated well--wm/agricultural equipment operator ; Source: New Immunization Record Flu (split) (3 yrs 2021-05-12 Completed Note: verified pt [facility] or older) 5 name allergies 00:00:00 admin without complications pt tolerated well--wm/agricultural equipment operator ; Source: New Immunization Record Hep B (adult) 2021-05-12 Completed Note: verified pt [facility] 5 name allergies 00:00:00 admin without complications pt tolerated well--wm/agricultural equipment operator ; Source: New Immunization Record ZOST[facility] 2021-05-12 Completed Note: verified pt [facility] 5 name allergies 00:00:00 admin without complications pt tolerated well--wm/agricultural equipment operator ; Source: New Immunization Record Flu (split) (3 yrs 2021-05-12 Completed Note: verified pt [facility] or older) 5 name allergies 00:00:00 admin without complications pt tolerated well--wm/agricultural equipment operator ; Source: New Immunization Record Hep B (adult) 2021-05-12 Completed Note: verified pt [facility] 5 name allergies 00:00:00 admin without complications pt tolerated well--wm/agricultural equipment operator ; Source: New Immunization Record [facility]OST[facility] 2021-05-12 Completed Note: verified pt [facility] 5 name allergies 00:00:00 admin without complications pt tolerated well--wm/agricultural equipment operator ; Source: New Immunization Record Flu (split) (3 yrs 2021-05-12 Completed Note: verified pt [facility] or older) 5 name allergies 00:00:00 admin without complications pt tolerated well--wm/agricultural equipment operator ; Source: New Immunization Record Hep B (adult) 2021-05-12 Completed Note: verified pt [facility] 5 name allergies 00:00:00 admin without complications pt tolerated well--wm/agricultural equipment operator ; Source: New Immunization Record ZOSTER 2021-05-12 Completed Note: verified pt [facility] 5 name allergies 00:00:00 admin without complications pt tolerated well--wm/agricultural equipment operator ; Source: New Immunization Record Flu (split) (3 yrs 2021-05-12 Completed Note: verified pt [facility] or older) 5 name allergies 00:00:00 admin without complications pt tolerated well--wm/agricultural equipment operator ; Source: New Immunization Record Hep B (adult) 2021-05-12 Completed Note: verified pt [facility] 5 name allergies 00:00:00 admin without complications pt tolerated well--wm/agricultural equipment operator ; Source: New Immunization Record ZOSTER 2021-05-12 Completed Note: verified pt [facility] 5 name allergies 00:00:00 admin without complications pt tolerated well--wm/agricultural equipment operator ; Source: New Immunization Record Flu (split) (3 yrs 2021-05-12 Completed Note: verified pt [facility] or older) 5 name allergies 00:00:00 admin without complications pt tolerated well--wm/agricultural equipment operator ; Source: New Immunization Record Hep B (adult) 2021-05-12 Completed Note: verified pt [facility] 5 name allergies 00:00:00 admin without complications pt tolerated well--wm/agricultural equipment operator ; Source: New Immunization Record ZOSTER 2021-05-12 Completed Note: verified pt [facility] 5 name allergies 00:00:00 admin without complications pt tolerated well--wm/agricultural equipment operator ; Source: New Immunization Record Flu (split) (3 yrs 2021-05-12 Completed Note: verified pt [facility] or older) 5 name allergies 00:00:00 admin without complications pt tolerated well--wm/agricultural equipment operator ; Source: New Immunization Record Hep B (adult) 2021-05-12 Completed Note: verified pt [facility] 5 name allergies 00:00:00 admin without complications pt tolerated well--wm/agricultural equipment operator ; Source: New Immunization Record ZOSTER 2021-05-12 Completed Note: verified pt [facility] 5 name allergies 00:00:00 admin without complications pt tolerated well--wm/agricultural equipment operator ; Source: New Immunization Record Flu (split) (3 yrs 2021-05-12 Completed Note: verified pt [facility] or older) 5 name allergies 00:00:00 admin without complications pt tolerated well--wm/agricultural equipment operator ; Source: New Immunization Record Hep B (adult) 2021-05-12 Completed Note: verified pt [facility] 5 name allergies 00:00:00 admin without complications pt tolerated well--wm/agricultural equipment operator ; Source: New Immunization Record ZOSTER 2021-05-12 Completed Note: verified pt [facility] 5 name allergies 00:00:00 admin without complications pt tolerated well--wm/agricultural equipment operator ; Source: New Immunization Record Flu (split) (3 yrs 2021-05-12 Completed Note: verified pt [facility] or older) 5 name allergies 00:00:00 admin without complications pt tolerated well--wm/agricultural equipment operator ; Source: New Immunization Record Hep B (adult) 2021-05-12 Completed Note: verified pt [facility] 5 name allergies 00:00:00 admin without complications pt tolerated well--wm/agricultural equipment operator ; Source: New Immunization Record [facility]OST[facility] 2021-05-12 Completed Note: verified pt [facility] 5 name allergies 00:00:00 admin without complications pt tolerated well--wm/agricultural equipment operator ; Source: New Immunization Record Flu (split) (3 yrs 2021-05-12 Completed Note: verified pt [facility] or older) 5 name allergies 00:00:00 admin without complications pt tolerated well--wm/agricultural equipment operator ; Source: New Immunization Record Hep B (adult) 2021-05-12 Completed Note: verified pt [facility] 5 name allergies 00:00:00 admin without complications pt tolerated well--wm/agricultural equipment operator ; Source: New Immunization Record [facility]OST[facility] 2021-05-12 Completed Note: verified pt [facility] 5 name allergies 00:00:00 admin without complications pt tolerated well--wm/agricultural equipment operator ; Source: New Immunization Record Flu (split) (3 yrs 2021-05-12 Completed Note: verified pt [facility] or older) 5 name allergies 00:00:00 admin without complications pt tolerated well--wm/agricultural equipment operator ; Source: New Immunization Record Hep B (adult) 2021-05-12 Completed Note: verified pt [facility] 5 name allergies 00:00:00 admin without complications pt tolerated well--wm/agricultural equipment operator ; Source: New Immunization Record [facility]OST[facility] 2021-05-12 Completed Note: verified pt [facility] 5 name allergies 00:00:00 admin without complications pt tolerated well--wm/agricultural equipment operator ; Source: New Immunization Record Flu (split) (3 yrs 2021-05-12 Completed Note: verified pt [facility] or older) 5 name allergies 00:00:00 admin without complications pt tolerated well--wm/agricultural equipment operator ; Source: New Immunization Record Hep B (adult) 2021-05-12 Completed Note: verified pt [facility] 5 name allergies 00:00:00 admin without complications pt tolerated well--wm/agricultural equipment operator ; Source: New Immunization Record [facility]OST[facility] 2021-05-12 Completed Note: verified pt [facility] 5 name allergies 00:00:00 admin without complications pt tolerated well--wm/agricultural equipment operator ; Source: New Immunization Record Flu (split) (3 yrs 2021-05-12 Completed Note: verified pt [facility] or older) 5 name allergies 00:00:00 admin without complications pt tolerated well--wm/agricultural equipment operator ; Source: New Immunization Record Hep B (adult) 2021-05-12 Completed Note: verified pt [facility] 5 name allergies 00:00:00 admin without complications pt tolerated well--wm/agricultural equipment operator ; Source: New Immunization Record [facility]OST[facility] 2021-05-12 Completed Note: verified pt [facility] 5 name allergies 00:00:00 admin without complications pt tolerated well--wm/agricultural equipment operator ; Source: New Immunization Record Flu (split) (3 yrs 2021-05-12 Completed Note: verified pt [facility] or older) 5 name allergies 00:00:00 admin without complications pt tolerated well--wm/agricultural equipment operator ; Source: New Immunization Record Hep B (adult) 2021-05-12 Completed Note: verified pt [facility] 5 name allergies 00:00:00 admin without complications pt tolerated well--wm/agricultural equipment operator ; Source: New Immunization Record [facility] 2021-05-12 Completed Note: verified pt [facility] 5 name allergies 00:00:00 admin without complications pt tolerated well--wm/agricultural equipment operator ; Source: New Immunization Record Flu (split) (3 yrs 2021-05-12 Completed Note: verified pt [facility] or older) 5 name allergies 00:00:00 admin without complications pt tolerated well--wm/agricultural equipment operator ; Source: New Immunization Record SARS-COV-2 Completed Source: Other [facility] (COVID-19) 9 [facility] vaccine, mRNA, 00:00:00 spike protein, LNP, preservative free, 30 mcg/0.3mL dose SARS-COV-2 Completed Source: Other [facility] (COVID-19) 9 Registry vaccine, mRNA, 00:00:00 spike protein, LNP, preservative free, 30 mcg/0.3mL dose SARS-COV-2 Completed Source: Other [facility] (COVID-19) 9 Registry vaccine, mRNA, 00:00:00 spike protein, LNP, preservative free, 30 mcg/0.3mL dose SARS-COV-2 Completed Source: Other [facility] (COVID-19) 9 Registry vaccine, mRNA, 00:00:00 spike protein, LNP, preservative free, 30 mcg/0.3mL dose SARS-COV-2 Completed Source: Other [facility] (COVID-19) 9 Registry vaccine, mRNA, 00:00:00 spike protein, LNP, preservative free, 30 mcg/0.3mL dose SARS-COV-2 Completed Source: Other [facility] (COVID-19) 9 Registry vaccine, mRNA, 00:00:00 spike protein, LNP, preservative free, 30 mcg/0.3mL dose SARS-COV-2 Completed Source: Other [facility] (COVID-19) 9 Registry vaccine, mRNA, 00:00:00 spike protein, LNP, preservative free, 30 mcg/0.3mL dose SARS-COV-2 Completed Source: Other [facility] (COVID-19) 9 Registry vaccine, mRNA, 00:00:00 spike protein, LNP, preservative free, 30 mcg/0.3mL dose SARS-COV-2 Completed Source: Other [facility] (COVID-19) 9 Registry vaccine, mRNA, 00:00:00 spike protein, LNP, preservative free, 30 mcg/0.3mL dose SARS-COV-2 Completed Source: Other [facility] (COVID-19) 9 Registry vaccine, mRNA, 00:00:00 spike protein, LNP, preservative free, 30 mcg/0.3mL dose SARS-COV-2 Completed Source: Other [facility] (COVID-19) 9 Registry vaccine, mRNA, 00:00:00 spike protein, LNP, preservative free, 30 mcg/0.3mL dose SARS-COV-2 Completed Source: Other [facility] (COVID-19) 9 Registry vaccine, mRNA, 00:00:00 spike protein, LNP, preservative free, 30 mcg/0.3mL dose SARS-COV-2 Completed Source: Other [facility] (COVID-19) 9 Registry vaccine, mRNA, 00:00:00 spike protein, LNP, preservative free, 30 mcg/0.3mL dose SARS-COV-2 Completed Source: Other [facility] (COVID-19) 9 Registry vaccine, mRNA, 00:00:00 spike protein, LNP, preservative free, 30 mcg/0.3mL dose SARS-COV-2 Completed Source: Other [facility] (COVID-19) 9 Registry vaccine, mRNA, 00:00:00 spike protein, LNP, preservative free, 30 mcg/0.3mL dose SARS-COV-2 Completed Source: Other [facility] (COVID-19) 9 Registry vaccine, mRNA, 00:00:00 spike protein, LNP, preservative free, 30 mcg/0.3mL dose SARS-COV-2 Completed Source: Other [facility] (COVID-19) 9 Registry vaccine, mRNA, 00:00:00 spike protein, LNP, preservative free, 30 mcg/0.3mL dose SARS-COV-2 Completed Source: Other [facility] (COVID-19) 9 Registry vaccine, mRNA, 00:00:00 spike protein, LNP, preservative free, 30 mcg/0.3mL dose SARS-COV-2 Completed Source: Other [facility] (COVID-19) 9 Registry vaccine, mRNA, 00:00:00 spike protein, LNP, preservative free, 30 mcg/0.3mL dose SARS-COV-2 2021-04-13 Completed Source: Other [facility] (COVID-19) 5 Registry vaccine, mRNA, 00:00:00 spike protein, LNP, preservative free, 30 mcg/0.3mL dose SARS-COV-2 2021-04-13 Completed Source: Other [facility] (COVID-19) 5 Registry vaccine, mRNA, 00:00:00 spike protein, LNP, preservative free, 30 mcg/0.3mL dose SARS-COV-2 2021-04-13 Completed Source: Other [facility] (COVID-19) 5 Registry vaccine, mRNA, 00:00:00 spike protein, LNP, preservative free, 30 mcg/0.3mL dose SARS-COV-2 2021-04-13 Completed Source: Other [facility] (COVID-19) 5 Registry vaccine, mRNA, 00:00:00 spike protein, LNP, preservative free, 30 mcg/0.3mL dose SARS-COV-2 2021-04-13 Completed Source: Other [facility] (COVID-19) 5 Registry vaccine, mRNA, 00:00:00 spike protein, LNP, preservative free, 30 mcg/0.3mL dose SARS-COV-2 2021-04-13 Completed Source: Other [facility] (COVID-19) 5 Registry vaccine, mRNA, 00:00:00 spike protein, LNP, preservative free, 30 mcg/0.3mL dose SARS-COV-2 2021-04-13 Completed Source: Other [facility] (COVID-19) 5 Registry vaccine, mRNA, 00:00:00 spike protein, LNP, preservative free, 30 mcg/0.3mL dose SARS-COV-2 2021-04-13 Completed Source: Other [facility] (COVID-19) 5 Registry vaccine, mRNA, 00:00:00 spike protein, LNP, preservative free, 30 mcg/0.3mL dose SARS-COV-2 2021-04-13 Completed Source: Other [facility] (COVID-19) 5 Registry vaccine, mRNA, 00:00:00 spike protein, LNP, preservative free, 30 mcg/0.3mL dose SARS-COV-2 2021-04-13 Completed Source: Other [facility] (COVID-19) 5 Registry vaccine, mRNA, 00:00:00 spike protein, LNP, preservative free, 30 mcg/0.3mL dose SARS-COV-2 2021-04-13 Completed Source: Other [facility] (COVID-19) 5 Registry vaccine, mRNA, 00:00:00 spike protein, LNP, preservative free, 30 mcg/0.3mL dose SARS-COV-2 2021-04-13 Completed Source: Other [facility] (COVID-19) 5 Registry vaccine, mRNA, 00:00:00 spike protein, LNP, preservative free, 30 mcg/0.3mL dose SARS-COV-2 2021-04-13 Completed Source: Other [facility] (COVID-19) 5 Registry vaccine, mRNA, 00:00:00 spike protein, LNP, preservative free, 30 mcg/0.3mL dose SARS-COV-2 2021-04-13 Completed Source: Other [facility] (COVID-19) 5 Registry vaccine, mRNA, 00:00:00 spike protein, LNP, preservative free, 30 mcg/0.3mL dose SARS-COV-2 2021-04-13 Completed Source: Other [facility] (COVID-19) 5 Registry vaccine, mRNA, 00:00:00 spike protein, LNP, preservative free, 30 mcg/0.3mL dose SARS-COV-2 2021-04-13 Completed Source: Other [facility] (COVID-19) 5 Registry vaccine, mRNA, 00:00:00 spike protein, LNP, preservative free, 30 mcg/0.3mL dose SARS-COV-2 2021-04-13 Completed Source: Other [facility] (COVID-19) 5 Registry vaccine, mRNA, 00:00:00 spike protein, LNP, preservative free, 30 mcg/0.3mL dose SARS-COV-2 2021-04-13 Completed Source: Other [facility] (COVID-19) 5 Registry vaccine, mRNA, 00:00:00 spike protein, LNP, preservative free, 30 mcg/0.3mL dose SARS-COV-2 2021-04-13 Completed Source: Other [facility] (COVID-19) 5 Registry vaccine, mRNA, 00:00:00 spike protein, LNP, preservative free, 30 mcg/0.3mL dose Hep A and Hep B, 2020-11-10 Completed Note: verified pt [facility] adult 5 name allergies 00:00:00 admin without complications pt tolerated well--wm/agricultural equipment operator ; Source: New Immunization Record Hep A and Hep B, 2020-11-10 Completed Note: verified pt A [facility] adult 5 name allergies 00:00:00 admin without complications pt tolerated well--wm/agricultural equipment operator ; Source: New Immunization Record Hep A and Hep B, 2020-11-10 Completed Note: verified pt A [facility] adult 5 name allergies 00:00:00 admin without complications pt tolerated well--wm/agricultural equipment operator ; Source: New Immunization Record Hep A and Hep B, 2020-11-10 Completed Note: verified pt [facility] adult 5 name allergies 00:00:00 admin without complications pt tolerated well--wm/agricultural equipment operator ; Source: New Immunization Record Hep A and Hep B, 2020-11-10 Completed [facility]:00 admin without complications pt tolerated well--wm/agricultural equipment operator ; Source: New Immunization Record Hep A and Hep B, 2020-11-10 Completed [facility]:00:00 admin without complications pt tolerated well--wm/agricultural equipment operator ; Source: New Immunization Record Hep A and Hep B, 2020-11-10 Completed Note: verified pt [facility] adult 5 name allergies 00:00:00 admin without complications pt tolerated well--wm/agricultural equipment operator ; Source: New Immunization Record Hep A and Hep B, 2020-11-10 Completed Note[facility] 00:00:00 admin without complications pt tolerated well--wm/agricultural equipment operator ; Source: New Immunization Record Hep A and Hep B, 2020-11-10 Completed Note: verified pt [facility] adult 5 name allergies 00:00:00 admin without complications pt tolerated well--wm/agricultural equipment operator ; Source: New Immunization Record Hep A and Hep B, 2020-11-10 Completed Note: verified pt [facility] adult 5 name allergies 00:00:00 admin without complications pt tolerated well--wm/agricultural equipment operator ; Source: New Immunization Record Hep A and Hep B, 2020-11-10 Completed Note: verified pt [facility] adult 5 name allergies 00:00:00 admin without complications pt tolerated well--wm/agricultural equipment operator ; Source: New Immunization Record Hep A and Hep B, 2020-11-10 Completed Note: verified pt [facility] adult 5 name allergies 00:00:00 admin without complications pt tolerated well--wm/agricultural equipment operator ; Source: New Immunization Record Hep A and Hep B, 2020-11-10 Completed Note: verified pt [facility] adult 5 name allergies 00:00:00 admin without complications pt tolerated well--wm/agricultural equipment operator ; Source: New Immunization Record Hep A and Hep B, 2020-11-10 Completed Note: verified pt [facility] adult 5 name allergies 00:00:00 admin without complications pt tolerated well--wm/agricultural equipment operator ; Source: New Immunization Record Hep A and Hep B, 2020-11-10 Completed Note: verified pt [facility] adult 5 name allergies 00:00:00 admin without complications pt tolerated well--wm/agricultural equipment operator ; Source: New Immunization Record Hep A and Hep B, 2020-11-10 Completed Note: verified pt [facility] adult 5 name allergies 00:00:00 admin without complications pt tolerated well--wm/agricultural equipment operator ; Source: New Immunization Record Hep A and Hep B, 2020-11-10 Completed Note: verified pt [facility] adult 5 name allergies 00:00:00 admin without complications pt tolerated well--wm/agricultural equipment operator ; Source: New Immunization Record Hep A and Hep B, 2020-11-10 Completed Note: verified pt [facility] adult 5 name allergies 00:00:00 admin without complications pt tolerated well--wm/agricultural equipment operator ; Source: New Immunization Record Hep A and Hep B, 2020-11-10 Completed Note: verified pt [facility] adult 5 name allergies 00:00:00 admin without complications pt tolerated well--wm/agricultural equipment operator ; Source: New Immunization Record Hep A and Hep B, 2020-11-10 Completed Note: verified pt [facility] adult 5 name allergies 00:00:00 admin without complications pt tolerated well--wm/agricultural equipment operator ; Source: New Immunization Record Hep A and Hep B, Completed Note: verified pt [facility] adult 8 name allergies 00:00:00 admin without complications pt tolerated well--wm/agricultural equipment operator ; Source: New Immunization Record Tdap Completed Note: verified pt [facility] 8 name allergies 00:00:00 admin without complications pt tolerated well--wm/agricultural equipment operator ; Source: New Immunization Record Hep A and Hep B, Completed Note: verified pt [facility] adult 8 name allergies 00:00:00 admin without complications pt tolerated well--wm/agricultural equipment operator ; Source: New Immunization Record Tdap Completed Note: verified pt [facility] 8 name allergies 00:00:00 admin without complications pt tolerated well--wm/agricultural equipment operator ; Source: New Immunization Record Hep A and Hep B, Completed [facility]:00 admin without complications pt tolerated well--wm/agricultural equipment operator ; Source: New Immunization Record Tdap Completed Note: verified pt [facility] 8 name allergies 00:00:00 admin without complications pt tolerated well--wm/agricultural equipment operator ; Source: New Immunization Record Hep A and Hep B, Completed Note: [facility] 8 name [facility] 00:00:00 admin without complications pt tolerated well--wm/agricultural equipment operator ; Source: New Immunization Record Tdap Completed Note: verified pt [facility] 8 name allergies 00:00:00 admin without complications pt tolerated well--wm/agricultural equipment operator ; Source: New Immunization Record Hep A and Hep B, Completed Note: verified pt A [facility] adult 8 name allergies 00:00:00 admin without complications pt tolerated well--wm/agricultural equipment operator ; Source: New Immunization Record Tdap Completed Note: verified pt [facility] 8 name allergies 00:00:00 admin without complications pt tolerated well--wm/agricultural equipment operator ; Source: New Immunization Record Hep A and Hep B, Completed [facility] 00:00:00 admin without complications pt tolerated well--wm/agricultural equipment operator ; Source: New Immunization Record Tdap Completed Note: verified pt [facility] 8 name allergies 00:00:00 admin without complications pt tolerated well--wm/agricultural equipment operator ; Source: New Immunization Record Hep A and Hep B, Completed Note: verified pt A [facility] adult 8 name allergies 00:00:00 admin without complications pt tolerated well--wm/agricultural equipment operator ; Source: New Immunization Record Tdap Completed Note: verified pt [facility] 8 name allergies 00:00:00 admin without complications pt tolerated well--wm/agricultural equipment operator ; Source: New Immunization Record Hep A and Hep B, Completed Note: verified pt A [facility] adult 8 name allergies 00:00:00 admin without complications pt tolerated well--wm/agricultural equipment operator ; Source: New Immunization Record Tdap Completed Note: verified pt [facility] 8 name allergies 00:00:00 admin without complications pt tolerated well--wm/agricultural equipment operator ; Source: New Immunization Record Hep A and Hep B, Completed Note: verified pt A [facility] adult 8 name allergies 00:00:00 admin without complications pt tolerated well--wm/agricultural equipment operator ; Source: New Immunization Record Tdap Completed Note: verified pt [facility] 8 name allergies 00:00:00 admin without complications pt tolerated well--wm/agricultural equipment operator ; Source: New Immunization Record Hep A and Hep B, Completed Note: verified pt A [facility] adult 8 name allergies 00:00:00 admin without complications pt tolerated well--wm/agricultural equipment operator ; Source: New Immunization Record Tdap Completed Note: [facility] 8 name allergies 00:00:00 admin without complications pt tolerated well--wm/agricultural equipment operator ; Source: New Immunization Record Hep A and Hep B, Completed Note: verified pt A [facility] adult 8 name allergies 00:00:00 admin without complications pt tolerated well--wm/agricultural equipment operator ; Source: New Immunization Record Tdap Completed Note: [facility] 8 name allergies 00:00:00 admin without complications pt tolerated well--wm/agricultural equipment operator ; Source: New Immunization Record Hep A and Hep B, Completed Note: verified pt A [facility] adult 8 name allergies 00:00:00 admin without complications pt tolerated well--wm/agricultural equipment operator ; Source: New Immunization Record Tdap Completed Note: verified pt [facility] 8 name allergies 00:00:00 admin without complications pt tolerated well--wm/agricultural equipment operator ; Source: New Immunization Record Hep A and Hep B, Completed Note: verified pt A [facility] adult 8 name allergies 00:00:00 admin without complications pt tolerated well--wm/agricultural equipment operator ; Source: New Immunization Record Tdap Completed Note: verified pt [facility] 8 name allergies 00:00:00 admin without complications pt tolerated well--wm/agricultural equipment operator ; Source: New Immunization Record Hep A and Hep B, Com[facility] 00:00:00 admin without complications pt tolerated well--wm/agricultural equipment operator ; Source: New Immunization Record Tdap Completed Note: verified pt [facility] 8 name allergies 00:00:00 admin without complications pt tolerated well--wm/agricultural equipment operator ; Source: New Immunization Record Hep A and Hep B, Completed Note: verified pt A [facility] adult 8 name allergies 00:00:00 admin without complications pt tolerated well--wm/agricultural equipment operator ; Source: New Immunization Record Tdap Completed Note: verified pt [facility] 8 name allergies 00:00:00 admin without complications pt tolerated well--wm/agricultural equipment operator ; Source: New Immunization Record Hep A and Hep B, Completed Note: verified pt A [facility] adult 8 name allergies 00:00:00 admin without complications pt tolerated well--wm/agricultural equipment operator ; Source: New Immunization Record Tdap Completed Note: verified pt [facility] 8 name allergies 00:00:00 admin without complications pt tolerated well--wm/agricultural equipment operator ; Source: New Immunization Record Hep A and Hep B, Completed Note: verified pt A [facility] adult 8 name allergies 00:00:00 admin without complications pt tolerated well--wm/agricultural equipment operator ; Source: New Immunization Record Tdap Completed Note: verified pt [facility] 8 name allergies 00:00:00 admin without complications pt tolerated well--wm/agricultural equipment operator ; Source: New Immunization Record Hep A and Hep B, Completed Note: verified pt A [facility] adult 8 name allergies 00:00:00 admin without complications pt tolerated well--wm/agricultural equipment operator ; Source: New Immunization Record Tdap Completed Note: verified pt [facility] 8 name allergies 00:00:00 admin without complications pt tolerated well--wm/agricultural equipment operator ; Source: New Immunization Record Hep A and Hep B, Completed [facility] 00:00:00 admin without complications pt tolerated well--wm/agricultural equipment operator ; Source: New Immunization Record Tdap Completed Note: [facility] 8 name allergies 00:00:00 admin without complications pt tolerated well--wm/agricultural equipment operator ; Source: New Immunization Record Hep A and Hep B, Completed Note: verified pt A [facility] adult 8 name allergies 00:00:00 admin without complications pt tolerated well--wm/agricultural equipment operator ; Source: New Immunization Record Tdap Completed Note: [facility] name allergies 00:00:00 admin without complications pt tolerated well--wm/agricultural equipment operator ; Source: New Immunization Record Flu (split) (3 2020-04-12 Completed Note: [facility] or older) 8 administered 00:00:00 without complications, pt tolerated well. Name, , and allergies confirmed -- sv/community advocate ; Source: New Immunization Record Flu (split) (2020-04-12 Completed Note: Vaccine [facility] or older) 8 administered 00:00:00 without complications, pt tolerated well. Name, , and allergies confirmed -- sv/community advocate ; Source: New Immunization Record Flu (split) (3 2020-04-12 Completed Note: Vaccine [facility] or older) 8 administered 00:00:00 without complications, pt tolerated well. Name, , and allergies confirmed -- sv/community advocate ; Source: New Immunization Record Flu (split) (2020-04-12 Completed Note: Vaccine [facility] or older) 8 administered 00:00:00 without complications, pt tolerated well. Name, , and allergies confirmed -- sv/community advocate ; Source: New Immunization Record Flu (split) (3 yrs 2020-04-12 Completed Note: Vaccine [facility] or older) 8 administered 00:00:00 without complications, pt tolerated well. Name, , and allergies confirmed -- sv/community advocate ; Source: New Immunization Record Flu (split) (2020-04-12 Completed Note: Vaccine [facility] or older) 8 administered 00:00:00 without complications, pt tolerated well. Name, , and allergies confirmed -- sv/community advocate ; Source: New Immunization Record Flu (split) (2020-04-12 Completed Note: Vaccine [facility] or older) 8 administered 00:00:00 without complications, pt tolerated well. Name, , and allergies confirmed -- sv/community advocate ; Source: New Immunization Record Flu (split) (2020-04-12 Completed Note: Vaccine [facility] or older) 8 administered 00:00:00 without complications, pt tolerated well. Name, , and allergies confirmed -- sv/community advocate ; Source: New Immunization Record Flu (split) (2020-04-12 Completed Note: Vaccine [facility] or older) 8 administered 00:00:00 without complications, pt tolerated well. Name, , and allergies confirmed -- sv/community advocate ; Source: New Immunization Record Flu (split) (2020-04-12 Completed Note: Vaccine [facility] or older) 8 administered 00:00:00 without complications, pt tolerated well. Name, , and allergies confirmed -- sv/community advocate ; Source: New Immunization Record Flu (split) (2020-04-12 Completed Note: Vaccine [facility] or older) 8 administered 00:00:00 without complications, pt tolerated well. Name, , and allergies confirmed -- sv/community advocate ; Source: New Immunization Record Flu (split) (2020-04-12 Completed Note: Vaccine [facility] or older) 8 administered 00:00:00 without complications, pt tolerated well. Name, , and allergies confirmed -- sv/community advocate ; Source: New Immunization Record Flu (split) (2020-04-12 Completed Note: Vaccine [facility] or older) 8 administered 00:00:00 without complications, pt tolerated well. Name, , and allergies confirmed -- sv/community advocate ; Source: New Immunization Record Flu (split) (2020-04-12 Completed Note: Vaccine [facility] or older) 8 administered 00:00:00 without complications, pt tolerated well. Name, , and allergies confirmed -- sv/community advocate ; Source: New Immunization Record Flu (split) (2020-04-1 Completed Note: Vaccine [facility] or older) 8 administered 00:00:00 without complications, pt tolerated well. Name, , and allergies confirmed -- sv/community advocate ; Source: New Immunization Record Flu (split) (3 2020-04-12 Completed Note: Vaccine [facility] or older) 8 administered 00:00:00 without complications, pt tolerated well. Name, , and allergies confirmed -- sv/community advocate ; Source: New Immunization Record Flu (split) (2020-04-12 Completed Note: Vaccine [facility] or older) 8 administered 00:00:00 without complications, pt tolerated well. Name, , and allergies confirmed -- sv/community advocate ; Source: New Immunization Record Flu (split) (2020-04-12 Completed Note: Vaccine [facility] or older) 8 administered 00:00:00 without complications, pt tolerated well. Name, , and allergies confirmed -- sv/community advocate ; Source: New Immunization Record Flu (split) (2020-04-12 Completed Note: Vaccine [facility] or older) 8 administered 00:00:00 without complications, pt tolerated well. Name, , and allergies confirmed -- sv/community advocate ; Source: New Immunization Record Flu (split) (2020-04-12 Completed Note: Vaccine [facility] or older) 8 administered 00:00:00 without complications, pt tolerated well. Name, , and allergies confirmed -- sv/community advocate ; Source: New Immunization Record Flu (split) (2020-04-12 Completed Note: Vaccine [facility] or older) 8 administered 00:00:00 without complications, pt tolerated well. Name, , and allergies confirmed -- sv/community advocate ; Source: New Immunization Record Flu (split) (2020-04-12 Completed Note: Vaccine [facility] or older) 8 administered 00:00:00 without complications, pt tolerated well. Name, , and allergies confirmed -- sv/community advocate ; Source: New Immunization Record Pneumo (2 yrs or 2020-01-11 Completed Note: verified pt [facility]) (PPV23) 9 name 00:00:00 allergies, admin without complications pt tolerated well--wm/agricultural equipment operator ; Source: New Immunization Record Pneumo (2 yrs or 2020-01-11 Completed Note: verified pt [facility]) (PPV23) 9 name 00:00:00 allergies, admin without complications pt tolerated well--wm/agricultural equipment operator ; Source: New Immunization Record Pneumo (2 yrs or 2020-01-11 Completed Note: verified pt [facility]) (PPV23) 9 name 00:00:00 allergies, admin without complications pt tolerated well--wm/agricultural equipment operator ; Source: New Immunization Record Pneumo (2 yrs or 2020-01-11 Completed Note: verified pt [facility]) (PPV23) 9 name 00:00:00 allergies, admin without complications pt tolerated well--wm/agricultural equipment operator ; Source: New Immunization Record Pneumo (2 yrs or 2020-01-11 Completed Note: verified pt [facility]) (PPV23) 9 name 00:00:00 allergies, admin without complications pt tolerated well--wm/agricultural equipment operator ; Source: New Immunization Record Pneumo (2 yrs or 2020-01-11 Completed Note: verified pt [facility]) (PPV23) 9 name 00:00:00 allergies, admin without complications pt tolerated well--wm/agricultural equipment operator ; Source: New Immunization Record Pneumo (2 yrs or 2020-01-11 Completed Note: verified pt [facility]) (PPV23) 9 name 00:00:00 allergies, admin without complications pt tolerated well--wm/agricultural equipment operator ; Source: New Immunization Record Pneumo (2 yrs or 2020-01-11 Completed Note: verified pt [facility]) (PPV23) 9 name 00:00:00 allergies, admin without complications pt tolerated well--wm/agricultural equipment operator ; Source: New Immunization Record Pneumo (2 yrs or 2020-01-11 Completed Note: verified pt [facility]) (PPV23) 9 name 00:00:00 allergies, admin without complications pt tolerated well--wm/agricultural equipment operator ; Source: New Immunization Record Pneumo (2 yrs or 2020-01-11 Completed Note: verified pt [facility]) (PPV23) 9 name 00:00:00 allergies, admin without complications pt tolerated well--wm/agricultural equipment operator ; Source: New Immunization Record Pneumo (2 yrs or 2020-06-1 Completed Note: verified pt [facility]) (PPV23) 9 name 00:00:00 allergies, admin without complications pt tolerated well--wm/agricultural equipment operator ; Source: New Immunization Record Pneumo (2 yrs or 2020-01-11 Completed Note: verified pt [facility]) (PPV23) 9 name 00:00:00 allergies, admin without complications pt tolerated well--wm/agricultural equipment operator ; Source: New Immunization Record Pneumo (2 yrs or 2020-01-11 Completed Note: verified pt [facility]) (PPV23) 9 name 00:00:00 allergies, admin without complications pt tolerated well--wm/agricultural equipment operator ; Source: New Immunization Record Pneumo (2 yrs or 2020-01-11 Completed Note: verified pt [facility]) (PPV23) 9 name 00:00:00 allergies, admin without complications pt tolerated well--wm/agricultural equipment operator ; Source: New Immunization Record Pneumo (2 yrs or 2020-01-11 Completed Note: verified pt [facility]) (PPV23) 9 name 00:00:00 allergies, admin without complications pt tolerated well--wm/agricultural equipment operator ; Source: New Immunization Record Pneumo (2 yrs or 2020-01-11 Completed Note: verified pt [facility]) (PPV23) 9 name 00:00:00 allergies, admin without complications pt tolerated well--wm/agricultural equipment operator ; Source: New Immunization Record Pneumo (2 yrs or 2020-01-11 Completed Note: verified pt [facility]) (PPV23) 9 name 00:00:00 allergies, admin without complications pt tolerated well--wm/agricultural equipment operator ; Source: New Immunization Record Pneumo (2 yrs or 2020-01-11 Completed Note: verified pt [facility]) (PPV23) 9 name 00:00:00 allergies, admin without complications pt tolerated well--wm/agricultural equipment operator ; Source: New Immunization Record Pneumo (2 yrs or 2020-01-11 Completed Note: verified pt [facility]) (PPV23) 9 name 00:00:00 allergies, admin without complications pt tolerated well--wm/agricultural equipment operator ; Source: New Immunization Record Pneumo (2 yrs or 2020-01-11 Completed Note: verified pt [facility]) (PPV23) 9 name 00:00:00 allergies, admin without complications pt tolerated well--wm/agricultural equipment operator ; Source: New Immunization Record Pneumo (2 yrs or 2020-01-11 Completed Note: verified pt [facility]) (PPV23) 9 name 00:00:00 allergies, admin without complications pt tolerated well--wm/agricultural equipment operator ; Source: New Immunization Record Pneumo (2 yrs or 2020-01-11 Completed Note: verified pt [facility]) (PPV23) 9 name 00:00:00 allergies, admin without complications pt tolerated well--wm/agricultural equipment operator ; Source: New Immunization Record Flu (split) ( Completed Source: [facility] or older) 3 Immunization 00:00:00 Record Flu (split) ( Completed Source: [facility] or older) 3 Immunization 00:00:00 Record Flu (split) ( Completed Source: [facility] or older) 3 Immunization 00:00:00 Record Flu (split) ( Completed Source: [facility] or older) 3 Immunization 00:00:00 Record Flu (split) ( Completed Source: [facility] or older) 3 Immunization 00:00:00 Record Flu (split) ( Completed Source: [facility] or older) 3 Immunization 00:00:00 Record Flu (split) ( Completed Source: [facility] or older) 3 Immunization 00:00:00 Record Flu (split) ( Completed Source: [facility] or older) 3 Immunization 00:00:00 Record Flu (split) ( Completed Source: [facility] or older) 3 Immunization 00:00:00 Record Flu (split) ( Completed Source: [facility] or older) 3 Immunization 00:00:00 Record Flu (split) ( Completed Source: [facility] or older) 3 Immunization 00:00:00 Record Flu (split) ( Completed Source: [facility] or older) 3 Immunization 00:00:00 Record Flu (split) (3 yrs Completed Source: [facility] or older) 3 Immunization 00:00:00 Record Flu (split) (3 yrs Completed Source: [facility] or older) 3 Immunization 00:00:00 Record Flu (split) (3 yrs Completed Source: [facility] or older) 3 Immunization 00:00:00 Record Flu (split) (3 yrs Completed Source: [facility] or older) 3 Immunization 00:00:00 Record Flu (split) (3 yrs Completed Source: [facility] or older) 3 Immunization 00:00:00 Record Flu (split) (3 yrs Completed Source: [facility] or older) 3 Immunization 00:00:00 Record Flu (split) (3 yrs Completed Source: [facility] or older) 3 Immunization 00:00:00 Record Flu (split) (3 yrs Completed Source: [facility] or older) 3 Immunization 00:00:00 Record Flu (split) (3 yrs Completed Source: [facility] or older) 3 Immunization 00:00:00 Record Flu (split) (3 yrs Completed Source: [facility] or older) 3 Immunization 00:00:00 Record Vital Signs Vital Name Observation Time Observation Value Comments Source Systolic blood 2022-10-22 143 mm[Hg] [facility] pressure 01:22:00 [facility] Diastolic blood 2022-10-22 88 mm[Hg] [facility] pressure 01:22:00 [facility] Heart rate 2022-10-22 101 /min [facility] 01:22:00 [facility] Respiratory rate 2022-10-22 18 /min [facility] 01:22:00 [facility] Oxygen saturation in 2022-10-22 95 /min [facility] Arterial blood by 01:22:00 [facility] anch Pulse oximetry Body temperature 2022-10-22 36.56 Bhavna [facility] 01:15:00 [facility] Body height 2022-10-21 167.6 cm [facility] 23:25:00 [facility] Body weight 2022-10-21 81.647 kg [facility] 23:25:00 [facility] BMI 2022-10-21 29.05 kg/m2 [facility] 23:25:00 [facility] Systolic blood 2020-11-28 162 mm[Hg] [facility] pressure 22:48:00 [facility] Diastolic blood 2020-11-28 85 mm[Hg] [facility] pressure 22:48:00 [facility] Heart rate 2020-11-28 98 /min [facility] 22:48:00 [facility] Body temperature 2020-11-28 36.72 Bhavna [facility] 22:48:00 [facility] Respiratory rate 2020-11-28 20 /min [facility] 22:48:00 [facility] Body weight 2020-11-28 72.576 kg [facility] 22:48:00 [facility] Oxygen saturation in 2020-11-28 99 /min [facility] Arterial blood by 22:48:00 Medical [facility] anch Pulse oximetry Systolic blood 2020-11-28 162 mm[Hg] [facility] pressure 22:48:00 [facility] Diastolic blood 2020-11-28 85 mm[Hg] [facility] pressure 22:48:00 [facility] Heart rate 2020-11-28 98 /min [facility] 22:48:00 [facility] Body temperature 2020-11-28 36.72 Bhavna [facility] 22:48:00 [facility] Respiratory rate 2020-11-28 20 /min [facility] 22:48:00 [facility] Body weight 2020-11-28 72.576 kg [facility] 22:48:00 [facility] Oxygen saturation in 2020-11-28 99 /min [facility] Arterial blood by 22:48:00 Medical [facility] anch Pulse oximetry Body height 2022-12-07 162.56 cm [facility] 10:46:00 Body Weight 2022-12-07 74.752 kg [facility] 10:46:00 [facility] 2022-12-07 131 mm[Hg] [facility] Systolic 10:46:00 [facility] 2022-12-07 62 mm[Hg] [facility] Diastolic 10:46:00 Heart Rate 2022-12-07 66 /min [facility] 10:46:00 Body Temperature 2022-12-07 36.61 [facility] 10:46:00 Respiratory rate 2022-12-07 18 /min [facility] 10:46:00 Body mass index 2022-12-07 28.29 kg/m2 [facility] 10:46:00 Body height 2022-08-22 162.56 cm [facility] 10:06:00 Body Weight 2022-08-22 74.480 kg [facility] 10:06:00 [facility] 2022-08-22 139 mm[Hg] [facility] Systolic 10:06:00 [facility] 2022-08-22 79 mm[Hg] [facility] Diastolic 10:06:00 Heart Rate 2022-08-22 71 /min [facility] 10:06:00 Body Temperature 2022-08-22 36.61 [facility]hav[facility] 10:06:00 Respiratory rate 2022-08-22 18 /min [facility] 10:06:00 Body mass index 2022-08-22 28.18 kg/m2 [facility] 10:06:00 SaO2 % BldA [facility] 2022-08-22 96 /min [facility] 10:06:00 Body height 2022-05-22 162.56 cm [facility] 10:58:00 Body Weight 2022-05-22 75.115 kg [facility] 10:58:00 [facility] 2022-05-22 138 mm[Hg] [facility] Systolic 10:58:00 [facility] 2022-05-22 75 mm[Hg] [facility] Diastolic 10:58:00 Heart Rate 2022-05-22 64 /min [facility] 10:58:00 Body Temperature 2022-05-22 36.56 [facility]hav[facility] 10:58:00 Respiratory rate 2022-05-22 20 /min [facility] 10:58:00 Body mass index 2022-05-22 28.42 kg/m2 [facility] 10:58:00 Body height 2022-02-19 162.56 cm [facility] 10:46:00 Body Weight 2022-02-19 74.208 kg [facility] 10:46:00 [facility] 2022-02-19 108 mm[Hg] [facility] Systolic 10:46:00 [facility] 2022-02-19 62 mm[Hg] [facility] Diastolic 10:46:00 Heart Rate 2022-02-19 71 /min [facility] 10:46:00 Body Temperature 2022-02-19 36.39 [facility]hav[facility] 10:46:00 Respiratory rate 2022-02-19 18 /min [facility] 10:46:00 Body mass index 2022-02-19 28.08 kg/m2 [facility] 10:46:00 Body height 2021-11-20 162.56 cm [facility] 11:07:00 Body Weight 2021-11-20 75.568 kg [facility] 11:07:00 [facility] 2021-11-20 134 mm[Hg] [facility] Systolic 11:07:00 [facility] 2021-11-20 64 mm[Hg] [facility] Diastolic 11:07:00 Heart Rate 2021-11-20 74 /min [facility] 11:07:00 Body Temperature 2021-11-20 36.28 [facility] 11:07:00 Respiratory rate 2021-11-20 18 /min [facility] 11:07:00 Body mass index 2021-11-20 28.60 kg/m2 [facility] 11:07:00 [facility] 2021-08-25 138 mm[Hg] [facility] Systolic 14:02:00 [facility] 2021-08-25 82 mm[Hg] [facility] Diastolic 14:02:00 Body Temperature 2021-08-25 36.61 [facility] 13:44:00 Respiratory rate 2021-08-25 20 /min [facility] 13:44:00 Body mass index 2021-08-25 28.32 kg/m2 [facility] 13:44:00 Body height 2021-08-25 162.56 cm [facility] 13:44:00 Body Weight 2021-08-25 74.843 kg [facility] 13:44:00 [facility] 2021-08-25 159 mm[Hg] [facility] Systolic 13:44:00 [facility] 2021-08-25 81 mm[Hg] [facility] Diastolic 13:44:00 Heart Rate 2021-08-25 89 /min [facility] 13:44:00 Body height 2021-05-26 162.56 cm [facility] 13:23:00 Body Weight 2021-05-26 77.111 kg [facility] 13:23:00 [facility] 2021-05-26 139 mm[Hg] [facility] Systolic 13:23:00 [facility] 2021-05-26 83 mm[Hg] [facility] Diastolic 13:23:00 Heart Rate 2021-05-26 81 /min [facility] 13:23:00 Body Temperature 2021-05-26 36.56 [facility] 13:23:00 Respiratory rate 2021-05-26 16 /min [facility] 13:23:00 Body mass index 2021-05-26 29.18 kg/m2 [facility] 13:23:00 Body height 2021-02-23 162.56 cm [facility] 13:17:00 Body Weight 2021-02-23 74.843 kg [facility] 13:17:00 Int[facility]ascular 2021-02-23 127 mm[Hg] [facility] Systolic 13:17:00 Int[facility]ascular 2021-02-23 67 mm[Hg] [facility] Diastolic 13:17:00 Heart Rate 2021-02-23 82 /min [facility] 13:17:00 Body Temperature 2021-02-23 36.89 [facility] 13:17:00 Respiratory rate 2021-02-23 18 /min [facility] 13:17:00 Body mass index 2021-02-23 28.32 kg/m2 [facility] 13:17:00 SaO2 % BldA PulseOx 2021-02-23 98 /min [facility] 13:17:00 Body height 2020-11-24 162.56 cm [facility] 13:21:00 Body Weight 2020-11-24 75.478 kg [facility] 13:21:00 Int[facility] 2020-11-24 147 mm[Hg] [facility] Systolic 13:21:00 Int[facility]ascular 2020-11-24 73 mm[Hg] [facility] Diastolic 13:21:00 Heart Rate 2020-11-24 78 /min [facility] 13:21:00 Body Temperature 2020-11-24 36.89 [facility] 13:21:00 Respiratory rate 2020-11-24 16 /min [facility] 13:21:00 Body mass index 2020-11-24 28.56 kg/m2 [facility] 13:21:00 Int[facility]ascular 2020-08-19 150 mm[Hg] [facility] Systolic 14:05:00 Intravascular 2020-08-19 84 mm[Hg] [facility] Diastolic 14:05:00 Body height 2020-08-19 162.56 cm [facility] 13:59:00 Body Weight 2020-08-19 75.931 kg [facility] 13:59:00 Int[facility]ascular 2020-08-19 150 mm[Hg] [facility] Systolic 13:59:00 Int[facility]ascular 2020-08-19 83 mm[Hg] [facility] Diastolic 13:59:00 Heart Rate 2020-08-19 84 /min [facility] 13:59:00 Body Temperature 2020-08-19 37.00 [facility] 13:59:00 Respiratory rate 2020-08-19 16 /min [facility] 13:59:00 Body mass index 2020-08-19 28.73 kg/m2 [facility] 13:59:00 Body height 2020-04-29 162.56 cm [facility] 13:32:00 Body Weight 2020-04-29 77.746 kg [facility] 13:32:00 Int[facility]ascular 2020-04-29 142 mm[Hg] [facility] Systolic 13:32:00 Intravascular 2020-04-29 72 mm[Hg] [facility] Diastolic 13:32:00 Heart Rate 2020-04-29 93 /min [facility] 13:32:00 Body Temperature 2020-04-29 36.72 [facility]hav[facility] 13:32:00 Respiratory rate 2020-04-29 18 /min [facility] 13:32:00 Body mass index 2020-04-29 29.42 kg/m2 [facility] 13:32:00 Body height 2020-01-29 162.56 cm [facility] 13:08:00 Body Weight 2020-01-29 74.389 kg [facility] 13:08:00 Intravascular 2020-01-29 140 mm[Hg] [facility] Systolic 13:08:00 Intravascular 2020-01-29 77 mm[Hg] [facility] Diastolic 13:08:00 Heart Rate 2020-01-29 75 /min [facility] 13:08:00 Body Temperature 2020-01-29 37.06 [facility]hav[facility] 13:08:00 Respiratory rate 2020-01-29 18 /min [facility] 13:08:00 Body mass index 2020-01-29 28.15 kg/m2 [facility] 13:08:00 Body height 2019-12-08 162.56 cm [facility] 10:18:00 Body Weight 2019-12-08 73.500 kg [facility] 10:18:00 Int[facility]ascular 2019-12-08 120 mm[Hg] [facility] Systolic 10:18:00 Intravascular 2019-12-08 77 mm[Hg] [facility] Diastolic 10:18:00 Heart Rate 2019-12-08 68 /min [facility] 10:18:00 Body Temperature 2019-12-08 35.05 [facility]hav[facility] 10:18:00 Respiratory rate 2019-12-08 20 /min [facility] 10:18:00 Body mass index 2019-12-08 27.81 kg/m2 [facility] 10:18:00 Body height 2019-10-13 162.56 cm [facility] 08:50:00 Body Weight 2019-10-13 72.393 kg [facility] 08:50:00 Int[facility]ascular 2019-10-13 120 mm[Hg] [facility] Systolic 08:50:00 Intravascular 2019-10-13 77 mm[Hg] [facility] Diastolic 08:50:00 Heart Rate 2019-10-13 68 /min [facility] 08:50:00 Body Temperature 2019-10-13 36.67 Bhav[facility] 08:50:00 Respiratory rate 2019-10-13 18 /min [facility] 08:50:00 Body mass index 2019-10-13 27.39 kg/m2 [facility] 08:50:00 Body height 2019-08-25 162.56 cm [facility] 14:23:00 Body Weight 2019-08-25 69.871 kg [facility] 14:23:00 Intravascular 2019-08-25 117 mm[Hg] [facility] Systolic 14:23:00 Int[facility]ascular 2019-08-25 73 mm[Hg] [facility] Diastolic 14:23:00 Heart Rate 2019-08-25 94 /min [facility] 14:23:00 Body Temperature 2019-08-25 36.94 [facility]hav[facility] 14:23:00 Respiratory rate 2019-08-25 20 /min [facility] 14:23:00 Body mass index 2019-08-25 26.44 kg/m2 [facility] 14:23:00 Int[facility]ascular 2019-07-14 142 mm[Hg] [facility] Systolic 10:08:00 Intravascular 2019-07-14 76 mm[Hg] [facility] Diastolic 10:08:00 Body height 2019-07-14 162.56 cm [facility] 09:42:00 Body Weight 2019-07-14 71.214 kg [facility] 09:42:00 Int[facility]ascular 2019-07-14 140 mm[Hg] [facility] Systolic 09:42:00 Int[facility]ascular 2019-07-14 78 mm[Hg] [facility] Diastolic 09:42:00 Heart Rate 2019-07-14 72 /min [facility] 09:42:00 Body Temperature 2019-07-14 36.67 Bhav[facility] 09:42:00 Respiratory rate 2019-07-14 18 /min [facility] 09:42:00 Body mass index 2019-07-14 26.95 kg/m2 [facility] 09:42:00 Body height 2019-05-14 159.38 cm [facility] 09:13:00 Body Weight 2019-05-14 70.760 kg [facility] 09:13:00 Int[facility]ascular 2019-05-14 137 mm[Hg] [facility] Systolic 09:13:00 Int[facility]ascular 2019-05-14 84 mm[Hg] [facility] Diastolic 09:13:00 Heart Rate 2019-05-14 76 /min [facility] 09:13:00 Body Temperature 2019-05-14 36.78 Bhav[facility] 09:13:00 Respiratory rate 2019-05-14 18 /min [facility] 09:13:00 Body mass index 2019-05-14 27.86 kg/m2 [facility] 09[facility]13:00 Procedures Procedure Date / Time Performing Clinician Source Performed GLUCOSE BLOOD TEST 2022-12-07 00:00:00 [facility]OUTPATIENT VISIT 2022-12-07 00:00:00 [facility] EST COMPREHEN METABOLIC 2022-12-07 00:00:00 [facility] PANEL LIPID PANEL 2022-12-07 00:00:00 [facility] GLYCOSYLATED HEMOGLOBIN 2022-12-07 00:00:00 [facility] TEST XR CHEST 1 VW 2022-10-22 00:37:20 Capri Parra [facility] XR FEMUR 2 VW LEFT 2022-10-22 00:37:[address] [facility] XR PELVIS <3 2022-10-22 00:37:20 Capri Parra [facility] GLUCOSE BLOOD TEST 2022-08-22 00:00:00 [facility] OFF[facility]OUTPATIENT VISIT 2022-08-22 00:00:00 [facility] EST COMPREHEN METABOLIC 2022-08-22 00:00:00 [facility] PANEL LIPID PANEL 2022-08-22 00:00:00 [facility] GLYCOSYLATED HEMOGLOBIN 2022-08-22 00:00:00 [facility] TEST GLUCOSE BLOOD TEST 2022-05-22 00:00:00 [facility] OFFICE/OUTPATIENT VISIT 2022-05-22 00:00:00 [facility] EST COMPREHEN METABOLIC 2022-05-22 00:00:00 [facility] PANEL LIPID PANEL 2022-05-22 00:00:00 [facility] UR ALBUMIN QUANTITATIVE 2022-05-22 00:00:00 [facility] GLYCOSYLATED HEMOGLOBIN 2022-05-22 00:00:00 [facility] TEST GLUCOSE BLOOD TEST 2022-02-19 00:00:00 [facility] OFFICE/OUTPATIENT VISIT 2022-02-19 00:00:00 [facility] EST COMPREHEN METABOLIC 2022-02-19 00:00:00 [facility] PANEL LIPID PANEL 2022-02-19 00:00:00 [facility] GLYCOSYLATED HEMOGLOBIN 2022-02-19 00:00:00 [facility] TEST GLUCOSE BLOOD TEST 2021-11-20 00:00:00 [facility] OFFICE/OUTPATIENT VISIT 2021-11-20 00:00:00 [facility] EST COMPREHEN METABOLIC 2021-11-20 00:00:00 [facility] PANEL LIPID PANEL 2021-11-20 00:00:00 [facility] GLYCOSYLATED HEMOGLOBIN 2021-11-20 00:00:00 [facility] TEST ASSAY TEST FOR BLOOD 2021-08-30 00:00:00 [facility] ealth FECAL GLUCOSE BLOOD TEST 2021-08-25 00:[facility] 2021-08-25 00:00:00 [facility] HZV VACCINE LIVE SUBQ 2021-08-25 00:00:00 [facility] OFFICE/OUTPATIENT VISIT 2021-08-25 00:00:00 [facility] EST COMPREHEN METABOLIC 2021-08-25 00:00:00 [facility] alth PANEL LIPID PANEL 2021-08-25 00:00:00 [facility] GLYCOSYLATED HEMOGLOBIN 2021-08-25 00:00:00 [facility] TEST GLUCOSE BLOOD TEST 2021-05-26 00:00:00 [facility] IMMUNIZATION ADMIN 2021-05-26 00:00:00 [facility] IIV4 VACCINE SPLT 0.5 2021-05-26 00:00:00 [facility] ML IM IMMUNIZATION ADMIN EACH 2021-05-26 00:00:00 [facility] ADD HZV VACC RECOMBINANT IM 2021-05-26 00:00:00 [facility] NJX HEPB VACCINE 3 DOSE 2021-05-26 00:00:00 [facility] ADULT IM OFFICE/OUTPATIENT VISIT 2021-05-26 00:00:00 [facility] EST COMPREHEN METABOLIC 2021-05-26 00:00:00 [facility] PANEL LIPID PANEL 2021-05-26 00:00:00 [facility] UR ALBUMIN QUANTITATIVE 2021-05-26 00:00:00 [facility] GLYCOSYLATED HEMOGLOBIN 2021-05-26 00:00:00 [facility] TEST SHOULDER, COMPLETE MINI 2021-02-23 00:00:00 [facility] TWO VIEWS, RADIOLOGIC EXAM GLUCOSE BLOOD TEST 2021-02-23 00:00:00 [facility] OFFICE/OUTPATIENT VISIT 2021-02-23 00:00:00 [facility] EST COMPREHEN METABOLIC 2021-02-23 00:00:00 [facility] alth PANEL LIPID PANEL 2021-02-23 00:00:00 [facility] GLYCOSYLATED HEMOGLOBIN 2021-02-23 00:00:00 [facility] TEST NOTICE OF PRIVACY 2020-11-28 22:39:48 Doctor Unassigned, [facility] PRACTICES [facility] CONSENT/REFUSAL FOR 2020-11-28 22:38:40 Doctor Unassigned, [facility] DIAGNOSIS AND TREATMENT [facility] IMMUNIZATION ADMIN 2020-11-24 00:00:00 [facility] HEP A/HEP B VACC ADULT 2020-11-24 00:00:00 [facility] 2020-11-24 00:00:00 [facility] EST COMPREHEN METABOLIC 2020-11-24 00:00:00 [facility] alth PANEL LIPID PANEL 2020-11-24 00:00:00 [facility] GLYCOSYLATED HEMOGLOBIN 2020-11-24 00:00:00 [facility] TEST ASSAY TEST FOR BLOOD 2020-08-26 00:00:00 [facility] ealt FECAL GLUCOSE BLOOD TEST 2020-08-19 00:00:00 [facility] OFFICE/OUTPATIENT VISIT 2020-08-19 00:00:00 [facility] EST IMMUNIZATION ADMIN 2020-08-19 00:00:00 [facility] TDAP VACCINE 7 YRS/> IM 2020-08-19 00:00:00 [facility] IMMUNIZATION ADMIN EACH 2020-08-19 00:00:00 [facility] ADD HEP A/HEP B VACC ADULT 2020-08-19 [facility]OLIC 2020-08-19 00:00:00 [facility] PANEL LIPID PANEL 2020-08-19 00:00:00 [facility] GLYCOSYLATED HEMOGLOBIN 2020-08-19 00:00:00 [facility] TEST GLUCOSE BLOOD TEST 2020-04-29 00:00:00 [facility] 2020-04-29 00:00:00 [facility] IIV4 VACCINE SPLT 0.5 2020-04-29 00:00:00 [facility] IM OFFICE/OUTPATIENT VISIT 2020-04-29 00:00:00 [facility] EST COMPREHEN METABOLIC 2020-04-29 00:00:00 [facility] PANEL LIPID PANEL 2020-04-29 00:00:00 [facility] GLYCOSYLATED HEMOGLOBIN 2020-04-29 00:00:00 [facility] TEST GLUCOSE BLOOD TEST 2020-01-29 00:00:00 [facility] IMMUNIZATION ADMIN 2020-01-29 00:00:00 [facility] PPSV23 VACC 2 YRS+ 2020-01-29 00:00:00 [facility] SUBQ/IM OFFICE/OUTPATIENT VISIT 2020-01-29 00:00:00 [facility] EST COMPREHEN METABOLIC 2020-01-29 00:00:00 [facility] alth PANEL LIPID PANEL 2020-01-29 00:00:00 [facility] UR ALBUMIN QUANTITATIVE 2020-01-29 00:00:00 [facility] GLYCOSYLATED HEMOGLOBIN 2020-01-29 00:00:00 [facility] TEST ASSAY OF FOLIC ACID 2020-01-29 00:00:00 [facility] SERUM ASSAY THYROID STIM 2020-01-29 00:00:00 [facility] HORMONE IMMUNOASSAY INFECTIOUS 2020-01-29 00:00:[facility] B-12 2020-01-29 00:00:00 [facility] GLUCOSE BLOOD TEST 2019-12-08 00:00:00 [facility] OFFICE/OUTPATIENT VISIT 2019-12-08 00:00:00 [facility] EST INTERVENTION 2019-10-19 00:00:00 [facility] INTERVENTION 2019-10-19 00:00:00 [facility] GLUCOSE BLOOD TEST 2019-10-13 00:00:00 [facility] OFFICE/OUTPATIENT VISIT 2019-10-13 00:00:00 [facility] EST COMPREHEN METABOLIC 2019-10-13 00:00:00 [facility] PANEL LIPID PANEL 2019-10-13 00:00:00 [facility] GLYCOSYLATED HEMOGLOBIN 2019-10-13 00:00:00 [facility] TEST INTERVENTION 2019-10-01 00:00:00 [facility] INTERVENTION 2019-10-01 00:00:00 [facility] COMPREHEN METABOLIC 2019-09-18 00:00:00 [facility] PANEL LIPID PANEL 2019-09-18 00:00:00 [facility] GLYCOSYLATED HEMOGLOBIN 2019-09-18 00:00:00 [facility] TEST INTERVENTION 2019-09-03 00:00:00 [facility] INTERVENTION 2019-09-03 00:00:00 [facility] GLUCOSE BLOOD TEST 2019-08-25 00:00:00 [facility] OFF[facility]OUTPATIENT VISIT 2019-08-25 00:00:00 [facility] EST INTERVENTION 2019-08-11 00:00:00 [facility] INTERVENTION 2019-08-11 00:00:00 [facility] ASSAY TEST FOR BLOOD 2019-07-21 00:00:00 [facility] FECAL ASSESSMENT 2019-07-14 00:00:00 [facility] ASSESSMENT 2019-07-14 00:00:00 [facility] GLUCOSE BLOOD TEST 2019-07-14 00:00:00 [facility] OFFICE/OUTPATIENT VISIT 2019-07-14 00:00:00 [facility] EST GLUCOSE BLOOD TEST 2019-05-14 00:00:00 [facility] PREV VISIT NEW AGE 2019-05-14 00:00:00 [facility] 40-64 IMMUNIZATION ADMIN 2019-05-14 00:00:00 [facility] IIV3 VACCINE SPLT 0.5 2019-05-14 00:00:00 [facility] IM Encounters Start End Encounter Admission Attending Care Care Encounter Source Date/Time Date/Time Type Type Clinicians Facility Department ID 2022-12-28 2022-12-28 Outpatient [facility]WELL[facility] [id number] Access 07:09:00 07:09:00 [facility] 2022-12-28 2022-12-28 Outpatient [facility] [id number] [facility] 07:09:00 07:09:00 [id number] [id number] ealt [id number] 0f4 [id number] 2022-12-17 2022-12-17 Outpatient CHIRAG BOSWELL [facility] [id number] [facility] 12:28:00 12:28:00 ealt 2022-12-17 2022-12-17 Outpatient CHIRAG BOSWELL [facility] [id number] [facility] 12:28:00 12:28:00 e2-5qe5-25x [id number] ealt [id number] 0f4 [id number] 2022-12-14 2022-12-14 Outpatient CHIRAG BOSWELL [facility] [id number] [facility] 12:42:00 12:42:00 ealt 2022-12-14 2022-12-14 Outpatient CHIRAG BOSWELL [facility] [id number] [facility] 12:42:00 12:42:00 [id number] ealt [id number] 2022-12-13 2022-12-13 Outpatient CHIRAG BOSWELL [facility] [id number] [facility] 08:23:00 08:23:00 ealt 2022-12-13 2022-12-13 Outpatient CHIRAG BOSWELL [facility] [id number] [facility] 08:23:00 08:23:00 e2-2et9-33f [id number] ealt [id number] 2022-12-10 2022-12-10 Outpatient CHIRAG BOSWELL [facility] [id number] [facility] 07:58:00 07:58:00 ealt 2022-12-10 2022-12-10 Outpatient CHIRAG BOSWELL [facility] [id number] [facility] 07:58:00 07:58:00 e2-1tr8-69g [id number] [facility] [id number] 0f4 [id number] 2022-12-07 2022-12-07 Outpatient CHIRAG BOSWELL [facility] [id number] [facility] 11:00:00 11:00:00 [facility] 2022-12-07 2022-12-07 OFFICE/OUT CHIRAG BOSWELL [facility] [id number] [facility] 11:00:00 11:00:00 PATIENT [id number] [id number] [facility] VISIT EST [id number] 2022-10-21 2022-10-21 Emergency X AUFDERHEIDE [facility] ERT [id number] [facility] 18:28:00 20:37:00 , CAPRI [facility] 2022-10-21 2022-10-21 Emergency Aufderheide [facility] [id number] [facility] 18:28:00 20:37:00 , Capri ZEPEDA [id number] i ty of [place] [id number] [facility] [phone] [address] 2022-08-24 2022-08-24 Outpatient CHIRAG BOSWELL [facility] [id number] [facility] 09:00:00 09:00:00 [facility] 2022-08-24 2022-08-24 Outpatient CHIRAG BOSWELL [facility] [id number] [facility] 09:00:00 09:00:00 e2-7kp5-81m u1a-[id number]-i [facility] [id number] 0f4 [id number] 2022-08-22 2022-08-22 Outpatient CHIRAG BOSWELL [facility] [id number] [facility] 11:00:00 11:00:00 [facility] 2022-08-22 2022-08-22 OFFICE/OUT CHIRAG BOSWELL [facility] [id number] [facility] 11:00:00 11:00:00 PATIENT e2-8tp8-54l [id number]-b ealt VISIT EST [id number] [id number] 2022-05-24 2022-05-24 Outpatient CHIRAG BOSWELL [facility] [id number] [facility] 08:34:00 08:34:00 ealt 2022-05-24 2022-05-24 Outpatient CHIRAG BOSWELL [facility] [id number] [facility] 08:34:00 08:34:00 e2-5dl1-71g f08-0jj9-6 ealt [id number] 0f4 [id number] 2022-05-22 2022-05-22 Outpatient CHIRAG BOSWELL [facility] [id number] [facility] 11:00:00 11:00:00 ealt 2022-05-22 2022-05-22 OFFICE/OUT CHIRAG B[facility]WE[facility] [id number] [facility] 11:00:00 11:00:00 PATIENT e2-1ft3-54i [id number]-[id number] ealt VISIT EST [id number] [id number] [id number] 2022-02-20 2022-02-20 Outpatient CHIRAG BOSWELL [facility] [id number] [facility] 07:54:00 07:54:00 ealt 2022-02-20 2022-02-20 Outpatient CHIRAG BOSWELL [facility] [id number] [facility] 07:54:00 07:54:00 e2-9od1-38r 76d-[id number] ealt [id number] [id number] 2022-02-19 2022-02-19 Outpatient CHIRAG BOSWELL [facility] [id number] [facility] 11:00:00 11:00:00 ealt 2022-02-19 2022-02-19 OFFICE/OUT CHIRAG [facility] [id number] [facility] 11:00:00 11:00:00 PATIENT e2-4tr4-02m [id number] ealt VISIT EST [id number] 0f4 [id number] 2022-01-04 2022-01-04 Outpatient CHIRAG BOSWELL [facility] [id number] [facility] 14:43:00 14:43:00 ealt 2022-01-04 2022-01-04 Outpatient CHIRAG BOSWELL [facility] [id number] [facility] 14:43:00 14:43:00 e2-4ua8-83d [id number] [facility] [id number] 0f4 [id number] 2021-11-21 2021-11-21 Outpatient CHIRAG BOSWELL [facility] [id number] [facility] 08:09:00 08:09:00 [facility] 2021-11-21 2021-11-21 Outpatient CHIARG BOSWELL [facility] [id number] [facility] 08:09:00 08:09:00 e2-1cj1-00c [id number] [facility] [id number] 0f4 [id number] 2021-11-20 2021-11-20 Outpatient CHIRAG BOSWELL [facility] [id number] [facility] 11:00:00 11:00:00 [facility] 2021-11-20 2021-11-20 OFFICE/OUT CHIRAG BOSWELL [facility] [id number] [facility] 11:00:00 11:00:00 PATIENT e2-5sh5-00k [id number] [facility] VISIT EST [id number] [id number] 2021-09-07 2021-09-07 Outpatient CHIRAG BOSWELL [facility] [id number] [facility] 15:04:00 15:04:00 ealt 2021-09-07 2021-09-07 Outpatient CHIRAG BOSWELL [facility] [id number] [facility] 15:04:00 15:04:00 e2-8hv7-29l 0r6-12j9-8 [facility] [id number] [id number] 2021-08-28 2021-08-28 Outpatient ANDREIA, SON [facility] [id number] [facility] 10:14:00 10:14:00 ealt 2021-08-28 2021-08-28 Outpatient ANDREIA, SON [facility] [id number] [facility] 10:14:00 10:14:00 e2-9du4-58u 7q6-2zd3-u ealt [id number] 0f4 [id number] 2021-08-25 2021-08-25 Outpatient ANDREIA, SON [facility] [id number] [facility] 14:00:00 14:00:00 ealt 2021-08-25 2021-08-25 OFFICE/OUT ANDREIA, CHIRAG [facility] [id number] [facility] 14:00:00 14:00:00 PATIENT e2-2pr0-26l [id number] [facility] VISIT EST [id number] 2021-05-29 2021-05-29 [id number] [facility] 11:04:00 11:04:00 ealt 2021-05-29 2021-05-29 Outpatient ANDREIA, [facility] [id number] [facility] 11:04:00 11:04:00 e2-1wf9-08q dc0-4a73-9 ealt [id number] 3ee-bc06b6 0f4 [id number] 2021-05-26 2021-05-26 [facility] [id number] [facility] 13:15:00 13:15:00 ealt 2021-05-26 2021-05-26 OFFICE/OUT BOSWELL, [facility] [id number] [facility] 13:15:00 13:15:00 PATIENT e2-3vh1-58a [id number]-k ealth VISIT EST [id number]-[id number] 0f4 ed4fcb 2021-03-21 2021-03-21 Outpatient [facility] B[facility]WE[facility] [id number] [facility] 00:00:00 00:00:00 ealt 2021-03-21 2021-03-21 Outpatient [facility] [id number] [facility] 00:00:00 00:00:00 ed-4120-b9c 138-400b-8 ealth [id number] [id number] 27a [id number] 2021-03-01 2021-03-01 Outpatient [facility] B[facility] [id number] [facility] 07:59:00 07:59:00 ealt 2021-03-01 2021-03-01 Outpatient [facility] B[facility] [id number] [facility] 07:59:00 07:59:00 e2-6ju6-70u 367-44e4-a ealth [id number] [id number] 0f4 [id number] 2021-02-23 2021-02-23 Outpatient C [facility] B[facility]WE[facility] [id number] [place] 14:14:00 23:59:00 [facility] 2021-02-23 2021-02-23 Outpatient [facility] B[facility]WE[facility] [id number] [facility] 13:45:00 13:45:00 ealt 2021-02-23 2021-02-23 OFFICE/OUT [facility] B[facility] [id number] [facility] 13:45:00 13:45:00 PATIENT e2-2sw7-43w [id number] ealth VISIT EST [id number] 0f4 [id number] 2021-01-04 2021-01-04 Outpatient Champion[facility] 4537 14- [place] 01:21:00 01:21:00 [id number] 2020-12-19 2020-12-19 Outpatient [facility] [id number] [facility] 11:33:00 11:33:00 ealt 2020-12-19 2020-12-19 Outpatient [facility] [id number] [facility] 11:33:00 11:33:00 e2-0yh6-86e 94e-41e0-8 [facility] [id number] 0f4 [id number] 2020-12-14 2020-12-14 Outpatient [facility] B[facility] [id number] [facility] 10:39:00 10:39:00 ealt 2020-12-14 2020-12-14 Outpatient [facility] [id number] [facility] 10:39:00 10:39:00 e2-0xn3-30z 5bd-4866-a [facility] [id number] [id number] 0f4 [id number] 2020-11-28 2020-11-28 Emergency Drever, [facility] [id number] 17:50:00 19:48:00 [facility] [id number] [place] [id number] [place] [id number] [facility] 2020-11-28 2020-11-28 Emergency Drever, [facility] [id number] [facility] 17:50:00 19:48:00 [facility] [id number] [facility] 4.2.7.2.[address] [place] [id number] 2020-11-28 2020-11-28 Emergency X [facility] ERT [id number] [facility] 17:39:00 17:39:00 ity [facility] 2020-11-28 2020-11-28 Outpatient CHIRAG BOSWELL [facility] [id number] [facility] 09:48:00 09:48:00 ealth 2020-11-28 2020-11-28 Outpatient CHIRAG BOSWELL [facility] 7ga1n4z3-2h zp775b88-2 [facility] 09:48:00 09:48:00 e2-6ie0-13y 760-4c21-b ealth 0-ub5ewd411 577-31d31b 0f4 b1e1d4 2020-11-24 2020-11-24 Outpatient ANDREIA, CHIRAG [facility] [id number] [facility] 13:45:00 13:45:00 ealth 2020-11-24 2020-11-24 OFFICE/OUT CHIRAG BOSWELL [facility] 7rt7c6z5-1z 3xqc6gu0-2 [facility] 13:45:00 13:45:00 PATIENT e2-8xo9-39z 177-49ab-8 ealth VISIT EST 0-xo4jtg805 4ad-38cb93 0f4 55520n 2020-08-26 2020-08-26 Outpatient CHIRAG BOSWELL [facility] [id number] [facility] 13:19:00 13:19:00 ealth 2020-08-26 2020-08-26 Outpatient CHIRAG BOSWELL [facility] 1bv6v2d3-0k 4370wgb1-l [facility] 13:19:00 13:19:00 e2-6us3-13j 806-419f-9 ealth 0-ox6sag185 1z0-9038o6 0f4 [id number] 7737-01-11 2020-08-22 Outpatient CHIRAG BOSWELL [facility] [id number] [facility] 12:09:00 12:09:00 ealth 2020-08-22 2020-08-22 Outpatient CHIRAG BOSWELL [facility] 0xm3c9n5-7v y46t52q9-9 [facility] 12:09:00 12:09:00 e2-5tv8-40z be5-4ecc-b ealth 0-na4biq138 de8-6cbe87 0f4 [id number] 2020-08-19 2020-08-19 Outpatient CHIRAG BOSWELL [facility] [id number] [facility] 14:30:00 14:30:00 ealth 2020-08-19 2020-08-19 OFFICE/OUT CHIRAG BOSWELL [facility] 6em5w3g9-7c v6752sf3-v [facility] 14:30:00 14:30:00 PATIENT e2-4ss3-03o w30-8x4a-0 [facility] EST 0-pu6cce407 e56-0253k1 0f4 165fb0 2020-05-02 2020-05-02 Outpatient ANDREIA, SON [facility] [id number] [facility] 09:22:00 09:22:00 [facility] 2020-05-02 2020-05-02 Outpatient ANDREIA SON [facility] 8ft9b2o8-5i pwb9vt60-0 [facility] 09:22:00 09:22:00 e2-4qs6-18j 0e8-4nj8-6 [facility] 0-kt5lfa484 q67-e763m8 0f4 f944e3 2020-04-29 2020-04-29 Outpatient CHIRAG BOSWELL [facility] [id number] [facility] 14:00:00 14:00:00 [facility] 2020-04-29 2020-04-29 OFFICE/OUT CHIRAG BOSWELL [facility] 8oa6b2d6-9c 7t051z2g-f [facility] 14:00:00 14:00:00 PATIENT e2-8an8-98v n2n-173h-2 [facility] VISIT EST 0-fw2jtr722 189-3b1f80 0f4 fd2b15 2020-04-15 2020-04-15 Emergency Count includes the [facility] [id number] 02:25:00 02:46:00 Latha [place] 350.1.13.10 [place] 4.2.7.2.686 [place] [id number] 2020-04-15 2020-04-15 Emergency Count includes the [facility] [id number] [facility] 02:25:00 02:46:00 Latha Herrer[place] 350.1.13.10 [facility] [place] 4.2.7.2.686 [facility] [id number] [place] [address] [place] 2020-04-15 2020-04-15 Emergency X YARIMA, [facility] ERT [id number] [facility] 02:25:00 02:25:00 LATHA [facility]mond [facility] 2020-02-01 2020-02-01 Outpatient CHIRAG [facility]OSWELL [facility] 5nb9z7u7-3o [id number] [facility] 10:10:00 10:10:00 e2-1si4-55s 3b9-5l89-5 ealth 0-ob7lvv874 af5-245348 0f4 dfcc16 2020-01-29 2020-01-29 OFFICE/OUT CHIRAG [facility] 1vt5g5r9-0l i6ez7sz2-8 [facility] 13:00:00 13:00:00 PATIENT e2-3ln8-73r 8ef-4391-9 ealth VISIT EST 0-xg1lup736 8z5-1414ym 0f4 922c21 2020-01-12 2020-01-12 Outpatient MALINDA [facility] 9os0h6s1-2m 7 61wk677-7 [facility] 15:19:00 15:19:00 ERMA, e2-4tm4-47u 6e6-44 ad-a ealth [place] 0-ya7udq669 7w5-567a17 0f4 8892a6 2020-01-12 2020-01-12 Outpatient CHIRAG [facility]LL [facility] 0ru5k2p2-4s k5146m0q-8 [facility] 10:02:00 10:02:00 e2-6zr9-22m 856-4af9-a ealth 0-gx8blh603 ec1-c3c6e9 0f4 [id number] 1370-04-28 2019-12-08 OFFICE/OUT MALINDA HC 4ut7o4d0-7n f r043f5s-y [facility] 11:15:00 11:15:00 PATIENT ERMA, e2-5sa2-09u 2f9-49 a9-8 ealth VISIT EST [place] 0-af6ocb812 544-29i176 0f4 d259a9 2019-10-19 2019-10-19 Outpatient O ABY, HC 9fi6r8u4-1a 47 qk8x28-1 [facility] 15:08:00 15:08:00 CARMEN e2-4yd0-99r 490-4dc8-b ealth 0-xs9jwe854 a0a-058bug 0f4 030047 2470-03-04 2019-10-14 Outpatient MALINDA [facility] 3dl6w3f9-8w 3 468g6w4-w [facility] 08:14:00 08:14:00 ERMA, e2-8ay3-34t 474-42 de-a ealth [place] 0-aw2hyt320 2z5-13tq3u 0f4 79e6a0 2019-10-13 2019-10-13 OFFICE/OUT MALINDA [facility] 9qt4k0q6-7h 5 [id number] [facility] 09:00:00 09:00:00 PATIENT ERMA, e2-7fd8-44c 359-42 24-a ealth VISIT EST [place] 0-oj5nga790 9df-9e09a7 0f4 9ef1d7 2019-10-05 2019-10-05 Outpatient MALINDA [facility] 6zv1g9n1-8u e 47b7u24-2 [facility] 13:39:00 13:39:00 QUINDIANA, e2-8vr1-63q baf-41 12-b ealth [place] 0-vt4ils576 2f1-5d3029 0f4 7y4201 2019-10-02 2019-10-02 Outpatient MALINDA [facility] 2qa7f5x6-1y d 09c254t-8 [facility] 10:32:00 10:32:00 ERMA, e2-9lj9-80j 7cf-41 9a-b ealth [place] 0-mn5lcq212 bb1-de33bf 0f4 73cb00 2019-10-01 2019-10-01 Outpatient O ABY HC 4zw6y5h9-8v 57 c1t625-m [facility] 13:49:00 13:49:00 CARMEN e2-7yy2-89k ad2-44d6-8 ealth 0-gl3kbo391 580-1c5851 0f4 93bd07 2019-09-24 2019-09-24 Outpatient MALINDA [facility] 9tj1m9t4-6p 6 49754nm-l [facility] 15:09:00 15:09:00 ERMA, e2-1ga4-83m fb8-48 11-b ealth [place] 0-gl5mtg685 3u2-0xp4pg 0f4 1e12d8 2019-09-03 2019-09-03 Outpatient O ABY, [facility] 4sf2c0q6-4b 1a 2xe427-1 [facility] 14:04:00 14:04:00 CARMEN e2-7op8-21x j48-470y-5 ealth 0-fs8nxs517 49a-506dbd 0f4 [id number] 7221-01-14 2019-08-25 OFFICE/OUT MALINDA [facility] 5zo1j7f5-1l e 7uvh7e0-8 [facility] 15:00:00 15:00:00 PATIENT ERMA, e2-1zs8-77m ff7-48 3d-9 ealth VISIT EST [place] 0-le2yan613 ec8-b6e8e0 0f4 441aaf 2019-08-11 2019-08-11 Outpatient O ABY, [facility] 4y723p53-8g 80 b3b701-7 [facility] 10:03:00 10:03:00 CARMEN 5a-4504-901 z71-0138-h ealth 6-0in189170 350-821911 ee2 39c3e9 2019-07-14 2019-07-14 Outpatient O ABY, [facility] 2uz5y1f9-8g 95 37792n-k [facility] 13:46:00 13:46:00 CARMEN e2-6vk1-22d 47e-4e5b-b ealth 0-oj5hvo446 25e-b9ab5d 0f4 efaa5f 2019-07-14 2019-07-14 OFFICE/OUT MAZARIEGOS, [facility] 5dy3y0w7-1c 6b v8u241-0 [facility] 09:30:00 09:30:00 PATIENT NENA e2-0ma3-90l 959-4d29- a ealth VISIT EST 0-jj7zqx569 bed-b4dbdc 0f4 0506e8 2019-07-06 2019-07-06 Outpatient MAZARIEGOS, [facility] 7rl6y5h7-9l ff 40vt48-5 [facility] 09:21:00 09:21:00 NENA e2-4ye1-17m 161-4a6f- 9 ealth 0-oi2gfq465 l16-3227jf 0f4 3r367q 2019-07-03 2019-07-03 Outpatient MAZARIEGOS, [facility] 9ip5c6k7-3f d2 355494-j [facility] 17:51:00 17:51:00 NENA e2-3go5-67q x49-18nn- a ealth 0-nn2vhn586 592-5643e6 0f4 1mm962 2019-06-30 2019-06-30 Outpatient , HC 0rj7v3h0-5o 3a9 085bf-f [facility] 13:54:00 13:54:00 LUIS F e2-4fp9-37v o99-21cg-4 ealth 0-qh1dbw088 g23-c710m7 0f4 e97cb0 2019-06-16 2019-06-16 Outpatient MAZARIEGOS, [facility] 5fj9f8e8-4y 04 u1rc85-z [facility] 10:33:00 10:33:00 NENA e2-2xu3-08w 95e-4a0b- 9 ealth 0-ld7xxy479 129-351847 0f4 a02b5f 2019-06-12 2019-06-12 Outpatient MAZARIEGOS, [facility] 8cf3z6f7-6l 59 n8h2z5-7 [facility] 11:12:00 11:12:00 NENA e2-4fw5-42q x98-49r3- a ealth 0-ks7ajc390 5bf-01y442 0f4 uwn316 2019-06-10 2019-06-10 Outpatient MAZARIEGOS, HC 3yd3h9a1-4w d8 398210-5 [facility] 17:36:00 17:36:00 NENA e2-5is7-97h 22e-4a7e- 9 ealth 0-tj6zzv889 882-a9cb34 0f4 1c945b 2019-06-09 2019-06-09 Outpatient DELILAH, [facility] 4gn4i5f2-9v 16 2n78g1-w [facility] 15:23:00 15:23:00 NENA lima-0za5-92k fd7-46c2- b ealth 0-fl4vgr351 i21-s0t039 0f4 9b53c1 2019-06-05 2019-06-05 Outpatient DELILAH, [facility] 4im3s1t4-1q e2 9m0796-9 [facility] 16:48:00 16:48:00 NENA e2-9vo2-47v 715-4ccc- a ealth 0-fm3mqh655 9l5-171ntx 0f4 35a9cf 2019-05-20 2019-05-20 Outpatient DELILAH, [facility] 4qf1q5t4-8f 63 34qz23-j [facility] 20:21:00 20:21:00 NENA lima-1em7-86b r1v-8u77- 8 ealth 0-yl4nxa215 965-0w899f 0f4 e1bba1 2019-05-14 2019-05-14 PREV VISIT DELILAH, [facility] 2mi5r6g4-1m e4 60it9a-m [facility] 09:00:00 09:00:00 NEW AGE NENA e2-9hf0-84a ed8-4b60- a ealth [age] 0-tj9rxt566 n1a-a76jcw 0f4 o7317x Results Test Description Test Time Test Comments Results Result Comments Source Panel Description: Comp. Metabolic Panel (14) 2022-12-08 02: 44:00 Test Item Value Reference Range Interpretation Comme nts Glucose (test code = 2345-7) 117 mg/dL 70-99 H BUN (test code = 3094-0) 12 mg/dL 6-24 Creatinine (test code = 2160-0) 1.10 mg/dL 0.76-1.27 eGFR (test code = 65087-2) 80 mL/min/1.73 >59 BUN/Creatinine Ratio (test code = 3097-3) 11 9-20 Sodium (test code = 2951-2) 141 mmol/L 134-144 Potassium (test code = 2823-3) 4.5 mmol/L 3.5-5.2 Chloride (test code = 2075-0) 102 mmol/L 96-106 Carbon Dioxide, Total (test code = 2027-9) 24 mmol/L 20-29 Calcium (test code = 15658-4) 9.5 mg/dL 8.7-10.2 Protein, Total (test code = 2885-2) 6.9 g/dL 6.0-8.5 Albumin (test code = 1751-7) 4.5 g/dL 3.8-4.9 Globulin, Total (test code = 56531-4) 2.4 g/dL 1.5-4.5 A/G Ratio (test code = 1759-0) 1.9 1.2-2.2 Bilirubin, Total (test code = 1974-2) 0.7 mg/dL 0.0-1.2 Alkaline Phosphatase (test code = 6768-6) 87 IU/L 44-121 AST (SGOT) (test code = 1920-8) 20 IU/L 0-40 ALT (SGPT) (test code = 1742-6) 23 IU/L 0-44 [facility] Description: Lipid [id number] 02:44:00 Test Item Value Reference Range Interpretation Comments Cholesterol, Total (test code = 104 mg/dL 798-768 3661-3) Triglycerides (test code = 2571-8) 122 mg/dL 0-149 HDL Cholesterol (test code = 31 mg/dL >39 L 9) VLDL Cholesterol Jose Roberto (test code = 22 mg/dL 5-40 82748-1) LDL Chol Calc (NIH) (test code = 51 mg/dL 0-99 83730-6) Comment: (test code = 94879-2) [facility] Description: Comp. Metabolic Panel (14)2022-12-08 02:44:00 Test Item Value Reference Range Interpretation Comments Glucose (test code = 2345-7) 117 mg/dL 70-99 H BUN (test code = 3094-0) 12 mg/dL 6-24 Creatinine (test code = 1.10 mg/dL 0.76-1.27 2160-0) eGFR (test code = 10333-3) 80 mL/min/1.73 >59 BUN/Creatinine Ratio (test 11 - code = 3097-3) Sodium (test code = 2951-2) 141 mmol/L 134-144 Potassium (test code = 2823-3) 4.5 mmol/L 3.5-5.2 Chloride (test code = 2075-0) 102 mmol/L 96-106 Carbon Dioxide, Total (test 24 mmol/L 20-29 code = 8-9) Calcium (test code = 33427-5) 9.5 mg/dL 8.7-10.2 Protein, Total (test code = 6.9 g/dL 6.0-8.5 2885-2) Albumin (test code = 1751-7) 4.5 g/dL 3.8-4.9 Globulin, Total (test code = 2.4 g/dL 1.5-4.5 76487-8) A/G Ratio (test code = 1759-0) 1.9 1.2-2.2 Bilirubin, Total (test code = 0.7 mg/dL 0.0-1.2 1974-2) Alkaline Phosphatase (test 87 IU/L 44-121 code = 6768-6) AST (SGOT) (test code = 20 IU/L 0-40 1920-8) ALT (SGPT) (test code = 23 IU/L 0-44 1742-6) [facility]: Lipid [id number] 02:44:00 Test Item Value Reference Range Interpretation Comments Cholesterol, Total (test code = 104 mg/dL 056-989 9618-3) Triglycerides (test code = 2571-8) 122 mg/dL 0-149 HDL Cholesterol (test code = 31 mg/dL >39 L 2084-9) VLDL Cholesterol Jose Roberto (test code = 22 mg/dL 5-40 21463-6) LDL Chol Calc (NIH) (test code = 51 mg/dL 0-99 72052-4) Comment: (test code = 22101-4) [facility] Description: Comp. Metabolic Panel (14)2022-12-08 02:44:00 Test Item Value Reference Range Interpretation Comments Glucose (test code = 2345-7) 117 mg/dL 70-99 H BUN (test code = 3094-0) 12 mg/dL 6-24 Creatinine (test code = 1.10 mg/dL 0.76-1.27 2160-0) eGFR (test code = 21732-2) 80 mL/min/1.73 >59 BUN/Creatinine Ratio (test 11 - code = 3097-3) Sodium (test code = 2951-2) 141 mmol/L 134-144 Potassium (test code = 2823-3) 4.5 mmol/L 3.5-5.2 Chloride (test code = 2075-0) 102 mmol/L 96-106 Carbon Dioxide, Total (test 24 mmol/L -29 code = 8-9) Calcium (test code = 64025-2) 9.5 mg/dL 8.7-10.2 Protein, Total (test code = 6.9 g/dL 6.0-8.5 2885-2) Albumin (test code = 1751-7) 4.5 g/dL 3.8-4.9 Globulin, Total (test code = 2.4 g/dL 1.5-4.5 55471-1) A/G Ratio (test code = 1759-0) 1.9 1.2-2.2 Bilirubin, Total (test code = 0.7 mg/dL 0.0-1.2 1975-2) Alkaline Phosphatase (test 87 IU/L 44-121 code = 6768-6) AST (SGOT) (test code = 20 IU/L 0-40 1920-8) ALT (SGPT) (test code = 23 IU/L 0-44 1742-6) [facility] Lipid [id number] 02:44:00 Test Item Value Reference Range Interpretation Comments Cholesterol, Total (test code = 104 mg/dL 827-799 2910-3) Triglycerides (test code = 2571-8) 122 mg/dL 0-149 HDL Cholesterol (test code = 31 mg/dL >39 L 2084-9) VLDL Cholesterol Jose Roberto (test code = 22 mg/dL 5-40 36829-3) LDL Chol Calc (NIH) (test code = 51 mg/dL 0-99 02755-8) Comment: (test code = 73416-3) [facility] Description: Comp. Metabolic Panel (14)2022-12-08 02:44:00 Test Item Value Reference Range Interpretation Comments Glucose (test code = 2345-7) 117 mg/dL 70-99 H BUN (test code = 3094-0) 12 mg/dL 6-24 Creatinine (test code = 1.10 mg/dL 0.76-1.27 2160-0) eGFR (test code = 22731-5) 80 mL/min/1.73 >59 BUN/Creatinine Ratio (test 11 9-20 code = 3097-3) Sodium (test code = 2951-2) 141 mmol/L 134-144 Potassium (test code = 2823-3) 4.5 mmol/L 3.5-5.2 Chloride (test code = 2075-0) 102 mmol/L 96-106 Carbon Dioxide, Total (test 24 mmol/L -29 code = 8-9) Calcium (test code = 19746-5) 9.5 mg/dL 8.7-10.2 Protein, Total (test code = 6.9 g/dL 6.0-8.5 2885-2) Albumin (test code = 1751-7) 4.5 g/dL 3.8-4.9 Globulin, Total (test code = 2.4 g/dL 1.5-4.5 88489-1) A/G Ratio (test code = 1759-0) 1.9 1.2-2.2 Bilirubin, Total (test code = 0.7 mg/dL 0.0-1.2 1975-2) Alkaline Phosphatase (test 87 IU/L 44-121 code = 6768-6) AST (SGOT) (test code = 20 IU/L 0-40 1920-8) ALT (SGPT) (test code = 23 IU/L 0-44 1742-6) [facility] Description: Lipid [id number] 02:44:00 Test Item Value Reference Range Interpretation Comments Cholesterol, Total (test code = 104 mg/dL 781-569 3245-3) Triglycerides (test code = 2571-8) 122 mg/dL 0-149 HDL Cholesterol (test code = 31 mg/dL >39 L 5-9) VLDL Cholesterol Jose Roberto (test code = 22 mg/dL 5-40 34342-9) LDL Chol Calc (NIH) (test code = 51 mg/dL 0-99 18840-4) Comment: (test code = 74546-4) [facility] Description: Comp. Metabolic Panel (14)2022-12-08 02:44:00 Test Item Value Reference Range Interpretation Comments Glucose (test code = 2345-7) 117 mg/dL 70-99 H BUN (test code = 3094-0) 12 mg/dL 6-24 Creatinine (test code = 1.10 mg/dL 0.76-1.27 2160-0) eGFR (test code = 93412-0) 80 mL/min/1.73 >59 BUN/Creatinine Ratio (test 11 05-01 code = 3097-3) Sodium (test code = 2951-2) 141 mmol/L 134-144 Potassium (test code = 2823-3) 4.5 mmol/L 3.5-5.2 Chloride (test code = 2075-0) 102 mmol/L 96-106 Carbon Dioxide, Total (test 24 mmol/L code = 8-9) Calcium (test code = 54137-8) 9.5 mg/dL 8.7-10.2 Protein, Total (test code = 6.9 g/dL 6.0-8.5 2885-2) Albumin (test code = 1751-7) 4.5 g/dL 3.8-4.9 Globulin, Total (test code = 2.4 g/dL 1.5-4.5 39973-3) A/G Ratio (test code = 1759-0) 1.9 1.2-2.2 Bilirubin, Total (test code = 0.7 mg/dL 0.0-1.2 1975-2) Alkaline Phosphatase (test 87 IU/L 44-121 code = 6768-6) AST (SGOT) (test code = 20 IU/L 0-40 1920-8) ALT (SGPT) (test code = 23 IU/L 0-44 1742-6) [facility] Description: Lipid [id number] 02:44:00 Test Item Value Reference Range Interpretation Comments Cholesterol, Total (test code = 104 mg/dL 867-170 0199-3) Triglycerides (test code = 2571-8) 122 mg/dL 0-149 HDL Cholesterol (test code = 31 mg/dL >39 L 2084-9) VLDL Cholesterol Jose Roberto (test code = 22 mg/dL 5-40 96185-8) LDL Chol Calc (NIH) (test code = 51 mg/dL 0-99 94583-1) Comment: (test code = 05799-1) [facility] Description: Comp. Metabolic Panel (14)2022-12-08 02:44:00 Test Item Value Reference Range Interpretation Comments Glucose (test code = 2345-7) 117 mg/dL 70-99 H BUN (test code = 3094-0) 12 mg/dL 6-24 Creatinine (test code = 1.10 mg/dL 0.76-1.27 2160-0) eGFR (test code = 70528-3) 80 mL/min/1.73 >59 BUN/Creatinine Ratio (test 11 - code = 3097-3) Sodium (test code = 2951-2) 141 mmol/L 134-144 Potassium (test code = 2823-3) 4.5 mmol/L 3.5-5.2 Chloride (test code = 2075-0) 102 mmol/L 96-106 Carbon Dioxide, Total (test 24 mmol/L code = 8-9) Calcium (test code = 31614-2) 9.5 mg/dL 8.7-10.2 Protein, Total (test code = 6.9 g/dL 6.0-8.5 2885-2) Albumin (test code = 1751-7) 4.5 g/dL 3.8-4.9 Globulin, Total (test code = 2.4 g/dL 1.5-4.5 29650-9) A/G Ratio (test code = 1759-0) 1.9 1.2-2.2 Bilirubin, Total (test code = 0.7 mg/dL 0.0-1.2 1975-2) Alkaline Phosphatase (test 87 IU/L 44-121 code = 6768-6) AST (SGOT) (test code = 20 IU/L 0-40 1920-8) ALT (SGPT) (test code = 23 IU/L 0-44 1742-6) [facility] Description: Lipid [id number] 02:44:00 Test Item Value Reference Range Interpretation Comments Cholesterol, Total (test code = 104 mg/dL 518-295 9097-3) Triglycerides (test code = 2571-8) 122 mg/dL 0-149 HDL Cholesterol (test code = 31 mg/dL >39 L 9) VLDL Cholesterol Jose Roberto (test code = 22 mg/dL 5-40 25498-3) LDL Chol Calc (NIH) (test code = 51 mg/dL 0-99 68037-0) Comment: (test code = 50533-8) [facility] Description: Hemoglobin A1c/Hemoglobin.total in Blood 2022-12-08 02:37:00 Test Item Value Reference Range Interpretation Comments Hemoglobin A1c (test code 7.5 % 4.8-5.6 H . Prediabetes: 5.7 - = 4548-4) 6.4 Diabetes: > 6.4 Glycemic contro l for adults with suzanne betes: <7.0Performed by:[facility] ([place]) [facility] Description: Hemoglobin A1c/Hemoglobin.total in Blood 2022-12-08 02:37:00 Test Item Value Reference Range Interpretation Comments Hemoglobin A1c (test code 7.5 % 4.8-5.6 H . Prediabetes: 5.7 - = 4548-4) 6.4 Diabetes: > 6.4 Glycemic contro l for adults with suzanne betes: <7.0Performed by:[facility] [facility] ([place]) [facility] Description: Hemoglobin A1c/Hemoglobin.total in Blood 2022-12-08 02:37:00 Test Item Value Reference Range Interpretation Comments Hemoglobin A1c (test code 7.5 % 4.8-5.6 H . Prediabetes: 5.7 - = 4548-4) 6.4 Diabetes: > 6.4 Glycemic contro l for adults with suzanne betes: <7.0Performed by:[facility] [facility] ([place]) [facility] Description: Hemoglobin A1c/Hemoglobin.total in Blood 2022-12-08 02:37:00 Test Item Value Reference Range Interpretation Comments Hemoglobin A1c (test code 7.5 % 4.8-5.6 H . Prediabetes: 5.7 - = 4548-4) 6.4 Diabetes: > 6.4 Glycemic contro l for adults with suzanne betes: <7.0Performed by:[facility] [facility] ([place]) [facility] Description: Hemoglobin A1c/Hemoglobin.total in Blood 2022-12-08 02:37:00 Test Item Value Reference Range Interpretation Comments Hemoglobin A1c (test code 7.5 % 4.8-5.6 H . Prediabetes: 5.7 - = 4548-4) 6.4 Diabetes: > 6.4 Glycemic contro l for adults with suzanne betes: <7.0Performed by:[facility] [facility] ([place]) [facility] Description: Hemoglobin A1c/Hemoglobin.total in Blood 2022-12-08 02:37:00 Test Item Value Reference Range Interpretation Comments Hemoglobin A1c (test code 7.5 % 4.8-5.6 H . Prediabetes: 5.7 - = 4548-4) 6.4 Diabetes: > 6.4 Glycemic contro l for adults with suzanne betes: <7.0Performed by:[facility] ([place]) [facility] Description: Hemoglobin A1c/Hemoglobin.total in Blood 2022-08-23 16:30:00 Test Item Value Reference Range Interpretation Comments Hemoglobin A1c (test code 7.3 % 4.8-5.6 H . Prediabetes: 5.7 - = 4548-4) 6.4 Diabetes: > 6.4 Glycemic contro l for adults with suzanne betes: <7.0Performed by:[facility] ([place]) [facility] Description: Hemoglobin A1c/Hemoglobin.total in Blood 2022-08-23 16:30:00 Test Item Value Reference Range Interpretation Comments Hemoglobin A1c (test code 7.3 % 4.8-5.6 H . Prediabetes: 5.7 - = 4548-4) 6.4 Diabetes: > 6.4 Glycemic contro l for adults with suzanne betes: <7.0Performed by:[facility] ([place]) [facility] Description: Hemoglobin A1c/Hemoglobin.total in Blood 2022-08-23 16:30:00 Test Item Value Reference Range Interpretation Comments Hemoglobin A1c (test code 7.3 % 4.8-5.6 H . Prediabetes: 5.7 - = 4548-4) 6.4 Diabetes: > 6.4 Glycemic contro l for adults with suzanne betes: <7.0Performed by:[facility] ([place]) [facility] Description: Hemoglobin A1c/Hemoglobin.total in Blood 2022-08-23 16:30:00 Test Item Value Reference Range Interpretation Comments Hemoglobin A1c (test code 7.3 % 4.8-5.6 H . Prediabetes: 5.7 - = 4548-4) 6.4 Diabetes: > 6.4 Glycemic contro l for adults with suzanne betes: <7.0Performed by:[facility] ([place]) [facility] Description: Hemoglobin A1c/Hemoglobin.total in Blood 2022-08-23 16:30:00 Test Item Value Reference Range Interpretation Comments Hemoglobin A1c (test code 7.3 % 4.8-5.6 H . Prediabetes: 5.7 - = 4548-4) 6.4 Diabetes: > 6.4 Glycemic contro l for adults with suzanne betes: <7.0Performed by:[facility] ([place]) [facility] Description: Hemoglobin A1c/Hemoglobin.total in Blood 2022-08-23 16:30:00 Test Item Value Reference Range Interpretation Comments Hemoglobin A1c (test code 7.3 % 4.8-5.6 H . Prediabetes: 5.7 - = 4548-4) 6.4 Diabetes: > 6.4 Glycemic contro l for adults with suzanne betes: <7.0Performed by:[facility] ([place] Description: Hemoglobin A1c/Hemoglobin.total in Blood 2022-08-23 16:30:00 Test Item Value Reference Range Interpretation Comments Hemoglobin A1c (test code 7.3 % 4.8-5.6 H . Prediabetes: 5.7 - = 4548-4) 6.4 Diabetes: >6.4 Glycemic contro l for adults with suzanne betes: <7.0Performed by:[facility] ([place] Description: Lipid [id number] 02:27:00 Test Item Value Reference Range Interpretation Comments Cholesterol, Total (test code = 116 mg/dL 036-650 2142-3) Triglycerides (test code = 2571-8) 93 mg/dL 0-149 HDL Cholesterol (test code = 36 mg/dL >39 L 2085-04) VLDL Cholesterol Jose Roberto (test code = 18 mg/dL 5-40 36431-7) LDL Chol Calc (NIH) (test code = 62 mg/dL 0-99 39321-6) Comment: (test code = 28906-4) [facility] Description: Lipid [id number] 02:27:00 Test Item Value Reference Range Interpretation Comments Cholesterol, Total (test code = 116 mg/dL 520-101 6403-3) Triglycerides (test code = 2571-8) 93 mg/dL 0-149 HDL Cholesterol (test code = 36 mg/dL >39 L 2085-9) VLDL Cholesterol Jose Roberto (test code = 18 mg/dL 5-40 31431-3) LDL Chol Calc (NIH) (test code = 62 mg/dL 0-99 06161-5) Comment: (test code = 09207-4) [facility] Description: Lipid [id number] 02:27:00 Test Item Value Reference Range Interpretation Comments Cholesterol, Total (test code = 116 mg/dL 783-012 3276-3) Triglycerides (test code = 2571-8) 93 mg/dL 0-149 HDL Cholesterol (test code = 36 mg/dL >39 L 2085-9) VLDL Cholesterol Jose Roberto (test code = 18 mg/dL 5-40 21470-5) LDL Chol Calc (NIH) (test code = 62 mg/dL 0-99 90843-7) Comment: (test code = 82774-0) [facility] Description: Lipid [id number] 02:27:00 Test Item Value Reference Range Interpretation Comments Cholesterol, Total (test code = 116 mg/dL 880-911 1329-3) Triglycerides (test code = 2571-8) 93 mg/dL 0-149 HDL Cholesterol (test code = 36 mg/dL >39 L 2085-9) VLDL Cholesterol Jose Roberto (test code = 18 mg/dL 5-40 26883-4) LDL Chol Calc (NIH) (test code = 62 mg/dL 0-99 91851-4) Comment: (test code = 81981-6) [facility] Description: Lipid [id number] 02:27:00 Test Item Value Reference Range Interpretation Comments Cholesterol, Total (test code = 116 mg/dL 651-130 7042-3) Triglycerides (test code = 2571-8) 93 mg/dL 0-149 HDL Cholesterol (test code = 36 mg/dL >39 L 2085-9) VLDL Cholesterol Jose Roberto (test code = 18 mg/dL 5-40 00288-7) LDL Chol Calc (NIH) (test code = 62 mg/dL 0-99 67921-5) Comment: (test code = 34706-8) [facility] Description: Lipid [id number] 02:27:00 Test Item Value Reference Range Interpretation Comments Cholesterol, Total (test code = 116 mg/dL 955-301 7665-3) Triglycerides (test code = 2571-8) 93 mg/dL 0-149 HDL Cholesterol (test code = 36 mg/dL >39 L 5-9) VLDL Cholesterol Jose Roberto (test code = 18 mg/dL 5-40 25101-8) LDL Chol Calc (NIH) (test code = 62 mg/dL 0-99 26704-2) Comment: (test code = 37289-5) [facility] Description: Lipid [id number] 02:27:00 Test Item Value Reference Range Interpretation Comments Cholesterol, Total (test code = 116 mg/dL 669-260 6707-3) Triglycerides (test code = 2571-8) 93 mg/dL 0-149 HDL Cholesterol (test code = 36 mg/dL >39 L 5-9) VLDL Cholesterol Jose Roberto (test code = 18 mg/dL 5-40 52356-2) LDL Chol Calc (NIH) (test code = 62 mg/dL 0-99 45703-8) Comment: (test code = 64022-4) [facility] Description: Comp. Metabolic Panel (14)2022-08-23 02:13:00 Test Item Value Reference Range Interpretation Comments Glucose (test code = 2345-7) 125 mg/dL 70-99 H BUN (test code = 3094-0) 13 mg/dL 6-24 Creatinine (test code = 0.93 mg/dL 0.76-1.27 2160-0) eGFR (test code = 82095-1) 98 mL/min/1.73 >59 BUN/Creatinine Ratio (test 14 9- code = 3097-3) Sodium (test code = 2951-2) 141 mmol/L 134-144 Potassium (test code = 2823-3) 4.0 mmol/L 3.5-5.2 Chloride (test code = 2075-0) 106 mmol/L 96-106 Carbon Dioxide, Total (test 21 mmol/L 20-29 code = 2027-) Calcium (test code = 18500-3) 9.3 mg/dL 8.7-10.2 Protein, Total (test code = 7.5 g/dL 6.0-8.5 2885-2) Albumin (test code = 1751-7) 4.8 g/dL 3.8-4.9 Globulin, Total (test code = 2.7 g/dL 1.5-4.5 58727-5) A/G Ratio (test code = 1759-0) 1.8 1.2-2.2 Bilirubin, Total (test code = 0.5 mg/dL 0.0-1.2 1975-2) Alkaline Phosphatase (test 77 IU/L 44-121 code = 6768-6) AST (SGOT) (test code = 20 IU/L 0-40 1920-8) ALT (SGPT) (test code = 20 IU/L 0-44 1742-6) [facility] Description: Comp. Metabolic Panel (142022-08-23 02:13:00 Test Item Value Reference Range Interpretation Comments Glucose (test code = 2345-7) 125 mg/dL 70-99 H BUN (test code = 3094-0) 13 mg/dL 6-24 Creatinine (test code = 0.93 mg/dL 0.76-1.27 2160-0) eGFR (test code = 39486-2) 98 mL/min/1.73 >59 BUN/Creatinine Ratio (test 14 05-01 code = 3097-3) Sodium (test code = 2951-2) 141 mmol/L 134-144 Potassium (test code = 2823-3) 4.0 mmol/L 3.5-5.2 Chloride (test code = 2075-0) 106 mmol/L 96-106 Carbon Dioxide, Total (test 21 mmol/L 29 code = 2027-9) Calcium (test code = 34273-1) 9.3 mg/dL 8.7-10.2 Protein, Total (test code = 7.5 g/dL 6.0-8.5 2885-2) Albumin (test code = 1751-7) 4.8 g/dL 3.8-4.9 Globulin, Total (test code = 2.7 g/dL 1.5-4.5 93420-0) A/G Ratio (test code = 1759-0) 1.8 1.2-2.2 Bilirubin, Total (test code = 0.5 mg/dL 0.0-1.2 1974-) Alkaline Phosphatase (test 77 IU/L 44-121 code = 6768-6) AST (SGOT) (test code = 20 IU/L 0-40 1920-8) ALT (SGPT) (test code = 20 IU/L 0-44 1742-6) [facility] Description: Comp. Metabolic Panel (14)2022-08-23 02:13:00 Test Item Value Reference Range Interpretation Comments Glucose (test code = 2345-7) 125 mg/dL 70-99 H BUN (test code = 3094-0) 13 mg/dL 6-24 Creatinine (test code = 0.93 mg/dL 0.76-1.27 2160-0) eGFR (test code = 66516-1) 98 mL/min/1.73 >59 BUN/Creatinine Ratio (test 14 05-01 code = 3097-3) Sodium (test code = 2951-2) 141 mmol/L 134-144 Potassium (test code = 2823-3) 4.0 mmol/L 3.5-5.2 Chloride (test code = 2075-0) 106 mmol/L 96-106 Carbon Dioxide, Total (test 21 mmol/L -29 code = 2027-9) Calcium (test code = 02650-3) 9.3 mg/dL 8.7-10.2 Protein, Total (test code = 7.5 g/dL 6.0-8.5 2885-2) Albumin (test code = 1751-7) 4.8 g/dL 3.8-4.9 Globulin, Total (test code = 2.7 g/dL 1.5-4.5 22192-0) A/G Ratio (test code = 1759-0) 1.8 1.2-2.2 Bilirubin, Total (test code = 0.5 mg/dL 0.0-1.2 1974-) Alkaline Phosphatase (test 77 IU/L 44-121 code = 6768-6) AST (SGOT) (test code = 20 IU/L 0-40 1920-8) ALT (SGPT) (test code = 20 IU/L 0-44 1742-6) [facility]: [facility] ()2022-08-23 02:13:00 Test Item Value Reference Range Interpretation Comments Glucose (test code = 2345-7) 125 mg/dL 70-99 H BUN (test code = 3094-0) 13 mg/dL 6-24 Creatinine (test code = 0.93 mg/dL 0.76-1.27 2160-0) eGFR (test code = 57959-1) 98 mL/min/1.73 >59 BUN/Creatinine Ratio (test 14 05-01 code = 3097-3) Sodium (test code = 2951-2) 141 mmol/L 134-144 Potassium (test code = 2823-3) 4.0 mmol/L 3.5-5.2 Chloride (test code = 2075-0) 106 mmol/L 96-106 Carbon Dioxide, Total (test 21 mmol/L 20-29 code = 2027-9) Calcium (test code = 91989-2) 9.3 mg/dL 8.7-10.2 Protein, Total (test code = 7.5 g/dL 6.0-8.5 2885-2) Albumin (test code = 1751-7) 4.8 g/dL 3.8-4.9 Globulin, Total (test code = 2.7 g/dL 1.5-4.5 39743-7) A/G Ratio (test code = 1759-0) 1.8 1.2-2.2 Bilirubin, Total (test code = 0.5 mg/dL 0.0-1.2 1975-2) Alkaline Phosphatase (test 77 IU/L 44-121 code = 6768-6) AST (SGOT) (test code = 20 IU/L 0-40 1920-8) ALT (SGPT) (test code = 20 IU/L 0-44 1742-6) [facility] Description: Comp. Metabolic Panel (14)2022-08-23 02:13:00 Test Item Value Reference Range Interpretation Comments Glucose (test code = 2345-7) 125 mg/dL 70-99 H BUN (test code = 3094-0) 13 mg/dL 6-24 Creatinine (test code = 0.93 mg/dL 0.76-1.27 2160-0) eGFR (test code = 23111-7) 98 mL/min/1.73 >59 BUN/Creatinine Ratio (test 05-01 code = 3097-3) Sodium (test code = 2951-2) 141 mmol/L 134-144 Potassium (test code = 2823-3) 4.0 mmol/L 3.5-5.2 Chloride (test code = 2075-0) 106 mmol/L 96-106 Carbon Dioxide, Total (test 21 mmol/L 20-29 code = 2027-9) Calcium (test code = 81060-9) 9.3 mg/dL 8.7-10.2 Protein, Total (test code = 7.5 g/dL 6.0-8.5 2885-2) Albumin (test code = 1751-7) 4.8 g/dL 3.8-4.9 Globulin, Total (test code = 2.7 g/dL 1.5-4.5 79585-2) A/G Ratio (test code = 1759-0) 1.8 1.2-2.2 Bilirubin, Total (test code = 0.5 mg/dL 0.0-1.2 1975-2) Alkaline Phosphatase (test 77 IU/L 44-121 code = 6768-6) AST (SGOT) (test code = 20 IU/L 0-40 1920-8) ALT (SGPT) (test code = 20 IU/L 0-44 1742-6) [facility] Description: Comp. Metabolic Panel (2022-08-23 02:13:00 Test Item Value Reference Range Interpretation Comments Glucose (test code = 2345-7) 125 mg/dL 70-99 H BUN (test code = 3094-0) 13 mg/dL 6-24 Creatinine (test code = 0.93 mg/dL 0.76-1.27 2160-0) eGFR (test code = 37170-9) 98 mL/min/1.73 >59 BUN/Creatinine Ratio (test 05-01 code = 3097-3) Sodium (test code = 2951-2) 141 mmol/L 134-144 Potassium (test code = 2823-3) 4.0 mmol/L 3.5-5.2 Chloride (test code = 2075-0) 106 mmol/L 96-106 Carbon Dioxide, Total (test 21 mmol/L - code = 2027-) Calcium (test code = 21353-6) 9.3 mg/dL 8.7-10.2 Protein, Total (test code = 7.5 g/dL 6.0-8.5 2885-2) Albumin (test code = 1751-7) 4.8 g/dL 3.8-4.9 Globulin, Total (test code = 2.7 g/dL 1.5-4.5 52770-5) A/G Ratio (test code = 1759-0) 1.8 1.2-2.2 Bilirubin, Total (test code = 0.5 mg/dL 0.0-1.2 1975-2) Alkaline Phosphatase (test 77 IU/L 44-121 code = 6768-6) AST (SGOT) (test code = 20 IU/L 0-40 1920-8) ALT (SGPT) (test code = 20 IU/L 0-44 1742-6) [facility]: Comp[facility] (14)2022-08-23 02:13:00 Test Item Value Reference Range Interpretation Comments Glucose (test code = 2345-7) 125 mg/dL 70-99 H BUN (test code = 3094-0) 13 mg/dL 6-24 Creatinine (test code = 0.93 mg/dL 0.76-1.27 2160-0) eGFR (test code = 48279-1) 98 mL/min/1.73 >59 BUN/Creatinine Ratio (test 14 05-01 code = 3097-3) Sodium (test code = 2951-2) 141 mmol/L 134-144 Potassium (test code = 2823-3) 4.0 mmol/L 3.5-5.2 Chloride (test code = 2075-0) 106 mmol/L 96-106 Carbon Dioxide, Total (test 21 mmol/L -29 code = 2027-) Calcium (test code = 58750-9) 9.3 mg/dL 8.7-10.2 Protein, Total (test code = 7.5 g/dL 6.0-8.5 2885-2) Albumin (test code = 1751-7) 4.8 g/dL 3.8-4.9 Globulin, Total (test code = 2.7 g/dL 1.5-4.5 35088-9) A/G Ratio (test code = 1759-0) 1.8 1.2-2.2 Bilirubin, Total (test code = 0.5 mg/dL 0.0-1.2 1974-2) Alkaline Phosphatase (test 77 IU/L 44-121 code = 6768-6) AST (SGOT) (test code = 20 IU/L 0-40 1920-8) ALT (SGPT) (test code = 20 IU/L 0-44 2-6) [facility] Description: Albumin/Creatinine Ratio,[id number] 17:39:00 Test Item Value Reference Range Interpretation Comments Creatinine, Urine 137.0 mg/dL Not Estab. (test code = 2160-8) Albumin, Urine 4.6 ug/mL Not Estab. (test code = 22471-9) Alb/Creat Ratio 3 mg/gcreat 0-29 Normal: 0 - 29 (test code = Moderately incr eased: 9318-7) 30 - 300 Severe ly increased: >300Performed by:[facility] ([place]) [facility] Description: Albumin/Creatinine Ratio,[id number] 17:39:00 Test Item Value Reference Range Interpretation Comments Creatinine, Urine 137.0 mg/dL Not Estab. (test code = 2161-03) Albumin, Urine 4.6 ug/mL Not Estab. (test code = 47092-8) Alb/Creat Ratio 3 mg/gcreat 0-29 Normal: 0 - 29 (test code = Moderately incr eased: 9318-7) 30 - 300 Severe ly increased: >300Performed by:[facility] ([place]) [facility] Description: Albumin/Creatinine Ratio,[id number] 17:39:00 Test Item Value Reference Range Interpretation Comments Creatinine, Urine 137.0 mg/dL Not Estab. (test code = 216-8) Albumin, Urine 4.6 ug/mL Not Estab. (test code = 66076-6) Alb/Creat Ratio 3 mg/gcreat 0-29 Normal: 0 - 29 (test code = Moderately incr eased: 9318-7) 30 - 300 Severe ly increased: >300Performed by:[facility] ([facility]) [facility] Description: Albumin/Creatinine Ratio,[id number] 17:39:00 Test Item Value Reference Range Interpretation Comments Creatinine, Urine 137.0 mg/dL Not Estab. (test code = 216-8) Albumin, Urine 4.6 ug/mL Not Estab. (test code = 07359-1) Alb/Creat Ratio 3 mg/gcreat 0-29 Normal: 0 - 29 (test code = Moderately incr eased: 9318-7) 30 - 300 Severe ly increased: >300Performed by:[facility] ([place]) [facility] Description: Albumin/Creatinine Ratio,[id number] 17:39:00 Test Item Value Reference Range Interpretation Comments Creatinine, Urine 137.0 mg/dL Not Estab. (test code = 216-8) Albumin, Urine 4.6 ug/mL Not Estab. (test code = 01479-5) Alb/Creat Ratio 3 mg/gcreat 0-29 Normal: 0 - 29 (test code = Moderately incr eased: 9318-7) 30 - 300 Severe ly increased: >300Performed by:[facility] ([place]) [facility] Description: Albumin/Creatinine Ratio,[id number] 17:39:00 Test Item Value Reference Range Interpretation Comments Creatinine, Urine 137.0 mg/dL Not Estab. (test code = 2161-8) Albumin, Urine 4.6 ug/mL Not Estab. (test code = 04336-7) Alb/Creat Ratio 3 mg/gcreat 0-29 Normal: 0 - 29 (test code = Moderately incr eased: 9318-7) 30 - 300 Severe ly increased: >300Performed by:[facility] ([facility]) [facility] Description: Albumin/Creatinine Ratio,[id number] 17:39:00 Test Item Value Reference Range Interpretation Comments Creatinine, Urine 137.0 mg/dL Not Estab. (test code = 2161-8) Albumin, Urine 4.6 ug/mL Not Estab. (test code = 14153-8) Alb/Creat Ratio 3 mg/gcreat 0-29 Normal: 0 - 29 (test code = Moderately incr eased: 9318-7) 30 - 300 Severe ly increased: >300Performed by:[facility] ([facility]) [facility] Description: Albumin/Creatinine Ratio,[id number] 17:39:00 Test Item Value Reference Range Interpretation Comments Creatinine, Urine 137.0 mg/dL Not Estab. (test code = 2161-8) Albumin, Urine 4.6 ug/mL Not Estab. (test code = 11426-7) Alb/Creat Ratio 3 mg/gcreat 0-29 Normal: 0 - 29 (test code = Moderately incr eased: 9318-7) 30 - 300 Severe ly increased: >300Performed by:[facility] ([facility]) [facility] Description: Albumin/Creatinine Ratio,[id number] 17:39:00 Test Item Value Reference Range Interpretation Comments Creatinine, Urine 137.0 mg/dL Not Estab. (test code = 2161-8) Albumin, Urine 4.6 ug/mL Not Estab. (test code = 96978-9) Alb/Creat Ratio 3 mg/gcreat 0-29 Normal: 0 - 29 (test code = Moderately incr eased: 9318-7) 30 - 300 Severe ly increased: >300Performed by:[facility] ([facility]) [facility] Description: Hemoglobin A1c/Hemoglobin.total in Blood 2022-05-23 03:03:00 Test Item Value Reference Range Interpretation Comments Hemoglobin A1c (test code 6.8 % 4.8-5.6 H . Prediabetes: 5.7 - = 4548-4) 6.4 Diabetes: > 6.4 Glycemic contro l for adults with suzanne betes: <7.0Performed by:[facility] ([place]) [facility] Description: Hemoglobin A1c/Hemoglobin.total in Blood 2022-05-23 03:03:00 Test Item Value Reference Range Interpretation Comments Hemoglobin A1c (test code 6.8 % 4.8-5.6 H . Prediabetes: 5.7 - = 4548-4) 6.4 Diabetes: > 6.4 Glycemic contro l for adults with suzanne betes: <7.0Performed by:[facility] ([place]) [facility] Description: Hemoglobin A1c/Hemoglobin.total in Blood 2022-05-23 03:03:00 Test Item Value Reference Range Interpretation Comments Hemoglobin A1c (test code 6.8 % 4.8-5.6 H . Prediabetes: 5.7 - = 4548-4) 6.4 Diabetes: > 6.4 Glycemic contro l for adults with suzanne betes: <7.0Performed by:[facility] ([place]) [facility] Description: Hemoglobin A1c/Hemoglobin.total in Blood 2022-05-23 03:03:00 Test Item Value Reference Range Interpretation Comments Hemoglobin A1c (test code 6.8 % 4.8-5.6 H . Prediabetes: 5.7 - = 4548-4) 6.4 Diabetes: > 6.4 Glycemic contro l for adults with suzanne betes: <7.0Performed by:[facility] ([place]) [facility] Description: Hemoglobin A1c/Hemoglobin.total in Blood 2022-05-23 03:03:00 Test Item Value Reference Range Interpretation Comments Hemoglobin A1c (test code 6.8 % 4.8-5.6 H . Prediabetes: 5.7 - = 4548-4) 6.4 Diabetes: > 6.4 Glycemic contro l for adults with suzanne betes: <7.0Performed by:[facility] ([place]) [facility] Description: Hemoglobin A1c/Hemoglobin.total in Blood 2022-05-23 03:03:00 Test Item Value Reference Range Interpretation Comments Hemoglobin A1c (test code 6.8 % 4.8-5.6 H . Prediabetes: 5.7 - = 4548-4) 6.4 Diabetes: >6.4 Glycemic contro l for adults with suzanne betes: <7.0Performed by:[facility] ([place]) [facility] Description: Hemoglobin A1c/Hemoglobin.total in Blood 2022-05-23 03:03:00 Test Item Value Reference Range Interpretation Comments Hemoglobin A1c (test code 6.8 % 4.8-5.6 H . Prediabetes: 5.7 - = 4548-4) 6.4 Diabetes: > 6.4 Glycemic contro l for adults with suzanne betes: <7.0Performed by:[facility] ([place]) [facility] Description: Hemoglobin A1c/Hemoglobin.total in Blood 2022-05-23 03:03:00 Test Item Value Reference Range Interpretation Comments Hemoglobin A1c (test code 6.8 % 4.8-5.6 H . Prediabetes: 5.7 - = 4548-4) 6.4 Diabetes: > 6.4 Glycemic contro l for adults with suzanne betes: <7.0Performed by:[facility] ([place]) [facility] Description: Hemoglobin A1c/Hemoglobin.total in Blood 2022-05-23 03:03:00 Test Item Value Reference Range Interpretation Comments Hemoglobin A1c (test code 6.8 % 4.8-5.6 H . Prediabetes: 5.7 - = 4548-4) 6.4 Diabetes: > 6.4 Glycemic contro l for adults with suzanne betes: <7.0Performed by:[facility] ([place]) [facility] Description: Lipid [id number] 01:40:00 Test Item Value Reference Range Interpretation Comments Cholesterol, Total (test code = 101 mg/dL 277-692 6949-3) Triglycerides (test code = 2571-8) 108 mg/dL 0-149 HDL Cholesterol (test code = 30 mg/dL >39 L 2085-04) VLDL Cholesterol Jose Roberto (test code = 20 mg/dL 5-40 39723-9) LDL Chol Calc (NIH) (test code = 51 mg/dL 0-99 20065-5) Comment: (test code = 06355-5) [facility] Description: Lipid [id number] 01:40:00 Test Item Value Reference Range Interpretation Comments Cholesterol, Total (test code = 101 mg/dL 809-900 5201-3) Triglycerides (test code = 2571-8) 108 mg/dL 0-149 HDL Cholesterol (test code = 30 mg/dL >39 L 2085-04) VLDL Cholesterol Jose Roberto (test code = 20 mg/dL 5-40 14860-4) LDL Chol Calc (NIH) (test code = 51 mg/dL 0-99 32159-5) Comment: (test code = 36049-8) [facility] Description: Lipid [id number] 01:40:00 Test Item Value Reference Range Interpretation Comments Cholesterol, Total (test code = 101 mg/dL 042-655 0773-3) Triglycerides (test code = 2571-8) 108 mg/dL 0-149 HDL Cholesterol (test code = 30 mg/dL >39 L 2085-9) VLDL Cholesterol Jose Roberto (test code = 20 mg/dL 5-40 89142-9) LDL Chol Calc (NIH) (test code = 51 mg/dL 0-99 11946-3) Comment: (test code = 81727-3) [facility] Description: Lipid [id number] 01:40:00 Test Item Value Reference Range Interpretation Comments Cholesterol, Total (test code = 101 mg/dL 022-342 1934-3) Triglycerides (test code = 2571-8) 108 mg/dL 0-149 HDL Cholesterol (test code = 30 mg/dL >39 L 5-9) VLDL Cholesterol Jose Roberto (test code = 20 mg/dL 5-40 20081-1) LDL Chol Calc (NIH) (test code = 51 mg/dL 0-99 63479-8) Comment: (test code = 13159-1) [facility] Description: Lipid [id number] 01:40:00 Test Item Value Reference Range Interpretation Comments Cholesterol, Total (test code = 101 mg/dL 703-469 2147-3) Triglycerides (test code = 2571-8) 108 mg/dL 0-149 HDL Cholesterol (test code = 30 mg/dL >39 L 5-9) VLDL Cholesterol Jose Roberto (test code = 20 mg/dL 5-40 63649-5) LDL Chol Calc (NIH) (test code = 51 mg/dL 0-99 31928-3) Comment: (test code = 82760-7) [facility] Description: Lipid [id number] 01:40:00 Test Item Value Reference Range Interpretation Comments Cholesterol, Total (test code = 101 mg/dL 645-147 8783-3) Triglycerides (test code = 2571-8) 108 mg/dL 0-149 HDL Cholesterol (test code = 30 mg/dL >39 L 5-9) VLDL Cholesterol Jose Roberto (test code = 20 mg/dL 5-40 07257-8) LDL Chol Calc (NIH) (test code = 51 mg/dL 0-99 10764-6) Comment: (test code = 94875-8) [facility] Description: Lipid [id number] 01:40:00 Test Item Value Reference Range Interpretation Comments Cholesterol, Total (test code = 101 mg/dL 609-933 0914-3) Triglycerides (test code = 2571-8) 108 mg/dL 0-149 HDL Cholesterol (test code = 30 mg/dL >39 L 5-9) VLDL Cholesterol Jose Roberto (test code = 20 mg/dL 5-40 81405-7) LDL Chol Calc (NIH) (test code = 51 mg/dL 0-99 30138-1) Comment: (test code = 60871-4) [facility] Description: Lipid [id number] 01:40:00 Test Item Value Reference Range Interpretation Comments Cholesterol, Total (test code = 101 mg/dL 741-266 3588-3) Triglycerides (test code = 2571-8) 108 mg/dL 0-149 HDL Cholesterol (test code = 30 mg/dL >39 L 2084-9) VLDL Cholesterol Jose Roberto (test code = 20 mg/dL 5-40 28970-7) LDL Chol Calc (NIH) (test code = 51 mg/dL 0-99 78278-4) Comment: (test code = 09514-4) [facility] Description: Lipid [id number] 01:40:00 Test Item Value Reference Range Interpretation Comments Cholesterol, Total (test code = 101 mg/dL 657-036 4727-3) Triglycerides (test code = 2571-8) 108 mg/dL 0-149 HDL Cholesterol (test code = 30 mg/dL >39 L 2084-9) VLDL Cholesterol Jose Roberto (test code = 20 mg/dL 5-40 60799-1) LDL Chol Calc (NIH) (test code = 51 mg/dL 0-99 26164-9) Comment: (test code = 63043-5) [facility] Description: Comp. Metabolic Panel (14)2022-05-23 00:37:00 Test Item Value Reference Range Interpretation Comments Glucose (test code = 123 mg/dL 70-99 H Plea se note 2345-7) reference inter magui changePerform ed by:[facility] ([facility]) BUN (test code = 11 mg/dL 6-24 3094-0) Creatinine (test code 1.02 mg/dL 0.76-1.27 = 2160-0) eGFR (test code = 88 mL/min/1.73 >59 83847-4) BUN/Creatinine Ratio 11 - (test code = 3097-3) Sodium (test code = 140 mmol/L 960-776 2550-2) Potassium (test code 4.4 mmol/L 3.5-5.2 = 2823-3) Chloride (test code = 106 mmol/L 96-106 2075-0) Carbon Dioxide, Total 20 mmol/L 20-29 (test code = 2027-) Calcium (test code = 9.5 mg/dL 8.7-10.2 19551-7) Protein, Total (test 7.0 g/dL 6.0-8.5 code = 2885-2) Albumin (test code = 4.7 g/dL 3.8-4.9 1751-7) Globulin, Total (test 2.3 g/dL 1.5-4.5 code = 81651-1) A/G Ratio (test code 2.0 1.2-2.2 = 1759-0) Bilirubin, Total 0.6 mg/dL 0.0-1.2 (test code = 1974-2) Alkaline Phosphatase 86 IU/L 44-121 (test code = 6768-6) AST (SGOT) (test code 19 IU/L 0-40 = 1920-8) ALT (SGPT) (test code 16 IU/L 0-44 = 1742-6) [facility] Description: Comp. Metabolic Panel (14)2022-05-23 00:37:00 Test Item Value Reference Range Interpretation Comments Glucose (test code = 123 mg/dL 70-99 H Plea se note 2345-7) reference inter magui changePerform ed by:[facility] ([place]) BUN (test code = 11 mg/dL 6-24 3094-0) Creatinine (test code 1.02 mg/dL 0.76-1.27 = 2160-0) eGFR (test code = 88 mL/min/1.73 >59 76998-5) BUN/Creatinine Ratio 06 20- (test code = 3097-3) Sodium (test code = 140 mmol/L 162-121 9323-2) Potassium (test code 4.4 mmol/L 3.5-5.2 = 2823-3) Chloride (test code = 106 mmol/L 96-106 2074-0) Carbon Dioxide, Total 20 mmol/L 20-29 (test code = 2028-04) Calcium (test code = 9.5 mg/dL 8.7-10.2 13087-5) Protein, Total (test 7.0 g/dL 6.0-8.5 code = 2885-2) Albumin (test code = 4.7 g/dL 3.8-4.9 1751-7) Globulin, Total (test 2.3 g/dL 1.5-4.5 code = 44997-3) A/G Ratio (test code 2.0 1.2-2.2 = 1759-0) Bilirubin, Total 0.6 mg/dL 0.0-1.2 (test code = 1974-2) Alkaline Phosphatase 86 IU/L 44-121 (test code = 6768-6) AST (SGOT) (test code 19 IU/L 0-40 = 1920-8) ALT (SGPT) (test code 16 IU/L 0-44 = 1742-6) [facility] Description: Comp. Metabolic Panel (14)2022-05-23 00:37:00 Test Item Value Reference Range Interpretation Comments Glucose (test code = 123 mg/dL 70-99 H Plea se note 2345-7) reference inter magui changePerform ed by:[facility] ([facility]) BUN (test code = 11 mg/dL 6-24 3094-0) Creatinine (test code 1.02 mg/dL 0.76-1.27 = 2160-0) eGFR (test code = 88 mL/min/1.73 >59 04601-5) BUN/Creatinine Ratio 11 9-20 (test code = 3097-3) Sodium (test code = 140 mmol/L 205-625 1896-2) Potassium (test code 4.4 mmol/L 3.5-5.2 = 2823-3) Chloride (test code = 106 mmol/L 96-106 2074-0) Carbon Dioxide, Total 20 mmol/L 20-29 (test code = 2027-) Calcium (test code = 9.5 mg/dL 8.7-10.2 72336-5) Protein, Total (test 7.0 g/dL 6.0-8.5 code = 2885-2) Albumin (test code = 4.7 g/dL 3.8-4.9 1751-7) Globulin, Total (test 2.3 g/dL 1.5-4.5 code = 69230-3) A/G Ratio (test code 2.0 1.2-2.2 = 1759-0) Bilirubin, Total 0.6 mg/dL 0.0-1.2 (test code = 1975-2) Alkaline Phosphatase 86 IU/L 44-121 (test code = 6768-6) AST (SGOT) (test code 19 IU/L 0-40 = 1920-8) ALT (SGPT) (test code 16 IU/L 0-44 = 1742-6) [facility] Description: Comp. Metabolic Panel (14)2022-05-23 00:37:00 Test Item Value Reference Range Interpretation Comments Glucose (test code = 123 mg/dL 70-99 H Plea se note 2345-7) reference inter magui changePerform ed by:[facility] [place] ([place]) BUN (test code = 11 mg/dL 6-24 3094-0) Creatinine (test code 1.02 mg/dL 0.76-1.27 = 2160-0) eGFR (test code = 88 mL/min/1.73 >59 57373-0) BUN/Creatinine Ratio 11 9-20 (test code = 3097-3) Sodium (test code = 140 mmol/L 471-189 3692-2) Potassium (test code 4.4 mmol/L 3.5-5.2 = 2823-3) Chloride (test code = 106 mmol/L 96-106 5-0) Carbon Dioxide, Total 20 mmol/L 20-29 (test code = 2027-9) Calcium (test code = 9.5 mg/dL 8.7-10.2 30217-2) Protein, Total (test 7.0 g/dL 6.0-8.5 code = 2885-2) Albumin (test code = 4.7 g/dL 3.8-4.9 1751-7) Globulin, Total (test 2.3 g/dL 1.5-4.5 code = 35562-9) A/G Ratio (test code 2.0 1.2-2.2 = 1759-0) Bilirubin, Total 0.6 mg/dL 0.0-1.2 (test code = 1974-) Alkaline Phosphatase 86 IU/L 44-121 (test code = 6768-6) AST (SGOT) (test code 19 IU/L 0-40 = 1920-8) ALT (SGPT) (test code 16 IU/L 0-44 = 1742-6) [facility] Description: Comp. Metabolic Panel (14)2022-05-23 00:37:00 Test Item Value Reference Range Interpretation Comments Glucose (test code = 123 mg/dL 70-99 H Ple ase note 2345-7) reference inter magui changePerform ed by:[facility] [place] ([place]) BUN (test code = 11 mg/dL 6-24 3094-0) Creatinine (test code 1.02 mg/dL 0.76-1.27 = 2160-0) eGFR (test code = 88 mL/min/1.73 >59 54203-5) BUN/Creatinine Ratio 11 9-20 (test code = 3097-3) Sodium (test code = 140 mmol/L 272-545 0694-2) Potassium (test code 4.4 mmol/L 3.5-5.2 = 2823-3) Chloride (test code = 106 mmol/L 96-106 5-0) Carbon Dioxide, Total 20 mmol/L 20-29 (test code = 2027-9) Calcium (test code = 9.5 mg/dL 8.7-10.2 14993-7) Protein, Total (test 7.0 g/dL 6.0-8.5 code = 2885-2) Albumin (test code = 4.7 g/dL 3.8-4.9 1751-7) Globulin, Total (test 2.3 g/dL 1.5-4.5 code = 71796-8) A/G Ratio (test code 2.0 1.2-2.2 = 1759-0) Bilirubin, Total 0.6 mg/dL 0.0-1.2 (test code = 1974-) Alkaline Phosphatase 86 IU/L 44-121 (test code = 6768-6) AST (SGOT) (test code 19 IU/L 0-40 = 1920-8) ALT (SGPT) (test code 16 IU/L 0-44 = 1742-6) [facility]: Comp. Metabolic Panel (14)2022-05-23 00:37:00 Test Item Value Reference Range Interpretation Comments Glucose (test code = 123 mg/dL 70-99 H Plea se note 2345-7) reference inter magui changePerform ed by:[facility] ([facility]) BUN (test code = 11 mg/dL 6-24 3094-0) Creatinine (test code 1.02 mg/dL 0.76-1.27 = 2160-0) eGFR (test code = 88 mL/min/1.73 >59 38600-2) BUN/Creatinine Ratio 11 9-20 (test code = 3097-3) Sodium (test code = 140 mmol/L 999-828 3705-2) Potassium (test code 4.4 mmol/L 3.5-5.2 = 2823-3) Chloride (test code = 106 mmol/L 96-106 5-0) Carbon Dioxide, Total 20 mmol/L 20-29 (test code = 2027-) Calcium (test code = 9.5 mg/dL 8.7-10.2 70076-0) Protein, Total (test 7.0 g/dL 6.0-8.5 code = 2885-2) Albumin (test code = 4.7 g/dL 3.8-4.9 1751-7) Globulin, Total (test 2.3 g/dL 1.5-4.5 code = 37278-6) A/G Ratio (test code 2.0 1.2-2.2 = 1759-0) Bilirubin, Total 0.6 mg/dL 0.0-1.2 (test code = 1975-2) Alkaline Phosphatase 86 IU/L 44-121 (test code = 6768-6) AST (SGOT) (test code 19 IU/L 0-40 = 1920-8) ALT (SGPT) (test code 16 IU/L 0-44 = 1742-6) [facility] Description: Comp. Metabolic Panel (14)2022-05-23 00:37:00 Test Item Value Reference Range Interpretation Comments Glucose (test code = 123 mg/dL 70-99 H Plea se note 2345-7) reference inter magui changePerform ed by:[facility] ([place]) BUN (test code = 11 mg/dL 6-24 3094-0) Creatinine (test code 1.02 mg/dL 0.76-1.27 = 2160-0) eGFR (test code = 88 mL/min/1.73 >59 44484-6) BUN/Creatinine Ratio 11 9-20 (test code = 3097-3) Sodium (test code = 140 mmol/L 590-981 2695-2) Potassium (test code 4.4 mmol/L 3.5-5.2 = 2823-3) Chloride (test code = 106 mmol/L 96-106 2075-0) Carbon Dioxide, Total 20 mmol/L 20-29 (test code = 2027-9) Calcium (test code = 9.5 mg/dL 8.7-10.2 35277-2) Protein, Total (test 7.0 g/dL 6.0-8.5 code = 2885-2) Albumin (test code = 4.7 g/dL 3.8-4.9 1751-7) Globulin, Total (test 2.3 g/dL 1.5-4.5 code = 46583-7) A/G Ratio (test code 2.0 1.2-2.2 = 1759-0) Bilirubin, Total 0.6 mg/dL 0.0-1.2 (test code = 1975-2) Alkaline Phosphatase 86 IU/L 44-121 (test code = 6768-6) AST (SGOT) (test code 19 IU/L 0-40 = 1920-8) ALT (SGPT) (test code 16 IU/L 0-44 = 1742-6) [facility] Description: Comp. Metabolic Panel (14)2022-05-23 00:37:00 Test Item Value Reference Range Interpretation Comments Glucose (test code = 123 mg/dL 70-99 H Plea se note 2345-7) reference inter magui changePerform ed by:[facility] ([place]) BUN (test code = 11 mg/dL 6-24 3094-0) Creatinine (test code 1.02 mg/dL 0.76-1.27 = 2160-0) eGFR (test code = 88 mL/min/1.73 >59 37744-8) BUN/Creatinine Ratio 06 20- (test code = 3097-3) Sodium (test code = 140 mmol/L 350-817 7028-2) Potassium (test code 4.4 mmol/L 3.5-5.2 = 2823-3) Chloride (test code = 106 mmol/L 96-106 5-0) Carbon Dioxide, Total 20 mmol/L 20-29 (test code = 2027-) Calcium (test code = 9.5 mg/dL 8.7-10.2 82628-9) Protein, Total (test 7.0 g/dL 6.0-8.5 code = 2885-2) Albumin (test code = 4.7 g/dL 3.8-4.9 1750-7) Globulin, Total (test 2.3 g/dL 1.5-4.5 code = 59236-1) A/G Ratio (test code 2.0 1.2-2.2 = 1759-0) Bilirubin, Total 0.6 mg/dL 0.0-1.2 (test code = 1974-2) Alkaline Phosphatase 86 IU/L 44-121 (test code = 6768-6) AST (SGOT) (test code 19 IU/L 0-40 = 1920-8) ALT (SGPT) (test code 16 IU/L 0-44 = 1742-6) [facility] Description: Comp. Metabolic Panel (14)2022-05-23 00:37:00 Test Item Value Reference Range Interpretation Comments Glucose (test code = 123 mg/dL 70-99 H Plea se note 2345-7) reference inter magui changePerform ed by:[facility] ([place]) BUN (test code = 11 mg/dL 6-24 4-0) Creatinine (test code 1.02 mg/dL 0.76-1.27 = 2160-0) eGFR (test code = 88 mL/min/1.73 >59 60465-5) BUN/Creatinine Ratio 06 20- (test code = 3097-3) Sodium (test code = 140 mmol/L 834-277 6433-2) Potassium (test code 4.4 mmol/L 3.5-5.2 = 2823-3) Chloride (test code = 106 mmol/L 96-106 2074-0) Carbon Dioxide, Total 20 mmol/L 20-29 (test code = 2027-) Calcium (test code = 9.5 mg/dL 8.7-10.2 49257-2) Protein, Total (test 7.0 g/dL 6.0-8.5 code = 2885-2) Albumin (test code = 4.7 g/dL 3.8-4.9 1750-7) Globulin, Total (test 2.3 g/dL 1.5-4.5 code = 64763-8) A/G Ratio (test code 2.0 1.2-2.2 = 1759-0) Bilirubin, Total 0.6 mg/dL 0.0-1.2 (test code = 1974-2) Alkaline Phosphatase 86 IU/L 44-121 (test code = 6768-6) AST (SGOT) (test code 19 IU/L 0-40 = 1920-8) ALT (SGPT) (test code 16 IU/L 0-44 = 1742-6) [facility] Description: Lipid [id number] 03:04:00 Test Item Value Reference Range Interpretation Comments Cholesterol, Total (test code = 105 mg/dL 249-822 2680-3) Triglycerides (test code = 2571-8) 120 mg/dL 0-149 HDL Cholesterol (test code = 30 mg/dL >39 L 2085-04) VLDL Cholesterol Jose Roberto (test code = 22 mg/dL 5-40 93497-8) LDL Chol Calc (NIH) (test code = 53 mg/dL 0-99 73036-0) Comment: (test code = 74539-0) [facility] Description: Lipid [id number] 03:04:00 Test Item Value Reference Range Interpretation Comments Cholesterol, Total (test code = 105 mg/dL 181-159 5349-3) Triglycerides (test code = 2571-8) 120 mg/dL 0-149 HDL Cholesterol (test code = 30 mg/dL >39 L 2084-9) VLDL Cholesterol Jose Roberto (test code = 22 mg/dL 5-40 23887-1) LDL Chol Calc (NIH) (test code = 53 mg/dL 0-99 17832-0) Comment: (test code = 57352-6) [facility] Description: Lipid [id number] 03:04:00 Test Item Value Reference Range Interpretation Comments Cholesterol, Total (test code = 105 mg/dL 420-420 9697-3) Triglycerides (test code = 2571-8) 120 mg/dL 0-149 HDL Cholesterol (test code = 30 mg/dL >39 L 2085-9) VLDL Cholesterol Jose Roberto (test code = 22 mg/dL 5-40 29573-3) LDL Chol Calc (NIH) (test code = 53 mg/dL 0-99 09990-2) Comment: (test code = 52289-5) [facility] Description: Lipid [id number] 03:04:00 Test Item Value Reference Range Interpretation Comments Cholesterol, Total (test code = 105 mg/dL 655-804 0789-3) Triglycerides (test code = 2571-8) 120 mg/dL 0-149 HDL Cholesterol (test code = 30 mg/dL >39 L 2085-9) VLDL Cholesterol Jose Roberto (test code = 22 mg/dL 5-40 88453-7) LDL Chol Calc (NIH) (test code = 53 mg/dL 0-99 77546-9) Comment: (test code = 34896-5) [facility] Description: Lipid [id number] 03:04:00 Test Item Value Reference Range Interpretation Comments Cholesterol, Total (test code = 105 mg/dL 737-446 2464-3) Triglycerides (test code = 2571-8) 120 mg/dL 0-149 HDL Cholesterol (test code = 30 mg/dL >39 L 2085-9) VLDL Cholesterol Jose Roberto (test code = 22 mg/dL 5-40 28367-9) LDL Chol Calc (NIH) (test code = 53 mg/dL 0-99 69219-9) Comment: (test code = 63278-8) [facility] Description: Lipid [id number] 03:04:00 Test Item Value Reference Range Interpretation Comments Cholesterol, Total (test code = 105 mg/dL 429-447 6650-3) Triglycerides (test code = 2571-8) 120 mg/dL 0-149 HDL Cholesterol (test code = 30 mg/dL >39 L 2085-9) VLDL Cholesterol Jose Roberto (test code = 22 mg/dL 5-40 40440-4) LDL Chol Calc (NIH) (test code = 53 mg/dL 0-99 56145-8) Comment: (test code = 96478-2) [facility] Description: Lipid [id number] 03:04:00 Test Item Value Reference Range Interpretation Comments Cholesterol, Total (test code = 105 mg/dL 848-535 2737-3) Triglycerides (test code = 2571-8) 120 mg/dL 0-149 HDL Cholesterol (test code = 30 mg/dL >39 L 2085-9) VLDL Cholesterol Jose Roberto (test code = 22 mg/dL 5-40 08561-2) LDL Chol Calc (NIH) (test code = 53 mg/dL 0-99 30923-2) Comment: (test code = 55191-3) [facility] Description: Lipid [id number] 03:04:00 Test Item Value Reference Range Interpretation Comments Cholesterol, Total (test code = 105 mg/dL 336-007 7212-3) Triglycerides (test code = 2571-8) 120 mg/dL 0-149 HDL Cholesterol (test code = 30 mg/dL >39 L 2085-9) VLDL Cholesterol Jose Roberto (test code = 22 mg/dL 5-40 76324-6) LDL Chol Calc (NIH) (test code = 53 mg/dL 0-99 35018-1) Comment: (test code = 50735-0) [facility] Description: Lipid [id number] 03:04:00 Test Item Value Reference Range Interpretation Comments Cholesterol, Total (test code = 105 mg/dL 885-280 7950-3) Triglycerides (test code = 2571-8) 120 mg/dL 0-149 HDL Cholesterol (test code = 30 mg/dL >39 L 2085-9) VLDL Cholesterol Jose Roberto (test code = 22 mg/dL 5-40 55813-7) LDL Chol Calc (NIH) (test code = 53 mg/dL 0-99 49816-2) Comment: (test code = 46968-6) [facility] Description: Lipid [id number] 03:04:00 Test Item Value Reference Range Interpretation Comments Cholesterol, Total (test code = 105 mg/dL 791-486 7854-3) Triglycerides (test code = 2571-8) 120 mg/dL 0-149 HDL Cholesterol (test code = 30 mg/dL >39 L 2085-9) VLDL Cholesterol Jose Roberto (test code = 22 mg/dL 5-40 67022-9) LDL Chol Calc (NIH) (test code = 53 mg/dL 0-99 42811-7) Comment: (test code = 33038-4) [facility] Description: Lipid [id number] 03:04:00 Test Item Value Reference Range Interpretation Comments Cholesterol, Total (test code = 105 mg/dL 151-645 4996-3) Triglycerides (test code = 2571-8) 120 mg/dL 0-149 HDL Cholesterol (test code = 30 mg/dL >39 L 5-9) VLDL Cholesterol Jose Roberto (test code = 22 mg/dL 5-40 39831-9) LDL Chol Calc (NIH) (test code = 53 mg/dL 0-99 02372-9) Comment: (test code = 98913-0) [facility] Description: Hemoglobin A1c/Hemoglobin.total in Blood 2022-02-20 02:57:00 Test Item Value Reference Range Interpretation Comments Hemoglobin A1c (test code 6.9 % 4.8-5.6 H . Prediabetes: 5.7 - = 4548-4) 6.4 Diabetes: > 6.4 Glycemic contro l for adults with suzanne betes: <7.0

P erformed by:
[facility] ()

[facility] Description: Hemoglobin A1c/Hemoglobin.total in Blood 2022-02-20 02:57:00 Test Item Value Reference Range Interpretation Comments Hemoglobin A1c (test code 6.9 % 4.8-5.6 H . Prediabetes: 5.7 - = 4548-4) 6.4 Diabetes: > 6.4 Glycemic contro l for adults with suzanne betes: <7.0

P erformed by:
[facility] ()

[facility] Description: Hemoglobin A1c/Hemoglobin.total in Blood 2022-02-20 02:57:00 Test Item Value Reference Range Interpretation Comments Hemoglobin A1c (test code 6.9 % 4.8-5.6 H . Prediabetes: 5.7 - = 4548-4) 6.4 Diabetes: > 6.4 Glycemic contro l for adults with suzanne betes: <7.0Performed by:[facility] ([place]) [facility] Description: Hemoglobin A1c/Hemoglobin.total in Blood 2022-02-20 02:57:00 Test Item Value Reference Range Interpretation Comments Hemoglobin A1c (test code 6.9 % 4.8-5.6 H . Prediabetes: 5.7 - = 4548-4) 6.4 Diabetes: > 6.4 Glycemic contro l for adults with suzanne betes: <7.0Performed by:[facility] [facility] ([place]) [facility] Description: Hemoglobin A1c/Hemoglobin.total in Blood 2022-02-20 02:57:00 Test Item Value Reference Range Interpretation Comments Hemoglobin A1c (test code 6.9 % 4.8-5.6 H . Prediabetes: 5.7 - = 4548-4) 6.4 Diabetes: > 6.4 Glycemic contro l for adults with suzanen betes: <7.0Performed by:[facility] [facility] ([place]) [facility] Description: Hemoglobin A1c/Hemoglobin.total in Blood 2022-02-20 02:57:00 Test Item Value Reference Range Interpretation Comments Hemoglobin A1c (test code 6.9 % 4.8-5.6 H . Prediabetes: 5.7 - = 4548-4) 6.4 Diabetes: > 6.4 Glycemic contro l for adults with suzanne betes: <7.0Performed by:[facility] ([place]) [facility] Description: Hemoglobin A1c/Hemoglobin.total in Blood 2022-02-20 02:57:00 Test Item Value Reference Range Interpretation Comments Hemoglobin A1c (test code 6.9 % 4.8-5.6 H . Prediabetes: 5.7 - = 4548-4) 6.4 Diabetes: > 6.4 Glycemic contro l for adults with suzanne betes: <7.0Performed by:[facility] ([place]) [facility] Description: Hemoglobin A1c/Hemoglobin.total in Blood 2022-02-20 02:57:00 Test Item Value Reference Range Interpretation Comments Hemoglobin A1c (test code 6.9 % 4.8-5.6 H . Prediabetes: 5.7 - = 4548-4) 6.4 Diabetes: > 6.4 Glycemic contro l for adults with suzanne betes: <7.0Performed by:[facility] ([place]) [facility] Description: Hemoglobin A1c/Hemoglobin.total in Blood 2022-02-20 02:57:00 Test Item Value Reference Range Interpretation Comments Hemoglobin A1c (test code 6.9 % 4.8-5.6 H . Prediabetes: 5.7 - = 4548-4) 6.4 Diabetes: > 6.4 Glycemic contro l for adults with suzanne betes: <7.0Performed by:[facility] ([place]) [facility] Description: Hemoglobin A1c/Hemoglobin.total in Blood 2022-02-20 02:57:00 Test Item Value Reference Range Interpretation Comments Hemoglobin A1c (test code 6.9 % 4.8-5.6 H . Prediabetes: 5.7 - = 4548-4) 6.4 Diabetes: > 6.4 Glycemic contro l for adults with suzanne betes: <7.0Performed by:[facility] [place] ([place]) [facility] Description: Hemoglobin A1c/Hemoglobin.total in Blood 2022-02-20 02:57:00 Test Item Value Reference Range Interpretation Comments Hemoglobin A1c (test code 6.9 % 4.8-5.6 H . Prediabetes: 5.7 - = 4548-4) 6.4 Diabetes: > 6.4 Glycemic contro l for adults with suzanne betes: <7.0Performed by:[facility] [place] ([place]) [facility] Description: Comp. Metabolic Panel (14)2022-02-20 02:50:00 Test Item Value Reference Range Interpretation Comments Glucose (test code = 2345-7) 136 mg/dL 65-99 H BUN (test code = 3094-0) 15 mg/dL 6-24 Creatinine (test code = 0.95 mg/dL 0.76-1.27 2160-0) eGFR (test code = 32214-0) 96 mL/min/1.73 >59 BUN/Creatinine Ratio (test 16 9-20 code = 3097-3) Sodium (test code = 2951-2) 139 mmol/L 134-144 Potassium (test code = 2823-3) 4.6 mmol/L 3.5-5.2 Chloride (test code = 2075-0) 102 mmol/L 96-106 Carbon Dioxide, Total (test 21 mmol/L -29 code = 2027-) Calcium (test code = 06598-0) 9.5 mg/dL 8.7-10.2 Protein, Total (test code = 7.0 g/dL 6.0-8.5 2885-2) Albumin (test code = 1751-7) 4.8 g/dL 3.8-4.9 Globulin, Total (test code = 2.2 g/dL 1.5-4.5 36314-3) A/G Ratio (test code = 1759-0) 2.2 1.2-2.2 Bilirubin, Total (test code = 0.7 mg/dL 0.0-1.2 1975-2) Alkaline Phosphatase (test 89 IU/L 44-121 code = 6768-6) AST (SGOT) (test code = 20 IU/L 0-40 1920-8) ALT (SGPT) (test code = 21 IU/L 0-44 1742-6) [facility] Description: Comp. Metabolic Panel (14)2022-02-20 02:50:00 Test Item Value Reference Range Interpretation Comments Glucose (test code = 2345-7) 136 mg/dL 65-99 H BUN (test code = 3094-0) 15 mg/dL 6-24 Creatinine (test code = 0.95 mg/dL 0.76-1.27 2160-0) eGFR (test code = 32112-4) 96 mL/min/1.73 >59 BUN/Creatinine Ratio (test 16 -20 code = 3097-3) Sodium (test code = 2951-2) 139 mmol/L 134-144 Potassium (test code = 2823-3) 4.6 mmol/L 3.5-5.2 Chloride (test code = 2075-0) 102 mmol/L 96-106 Carbon Dioxide, Total (test 21 mmol/L -29 code = 2027-) Calcium (test code = 15108-1) 9.5 mg/dL 8.7-10.2 Protein, Total (test code = 7.0 g/dL 6.0-8.5 2885-2) Albumin (test code = 1751-7) 4.8 g/dL 3.8-4.9 Globulin, Total (test code = 2.2 g/dL 1.5-4.5 11595-5) A/G Ratio (test code = 1759-0) 2.2 1.2-2.2 Bilirubin, Total (test code = 0.7 mg/dL 0.0-1.2 1974-) Alkaline Phosphatase (test 89 IU/L 44-121 code = 6768-6) AST (SGOT) (test code = 20 IU/L 0-40 1920-8) ALT (SGPT) (test code = 21 IU/L 0-44 1742-6) [facility] Description: Comp. Metabolic Panel (14)2022-02-20 02:50:00 Test Item Value Reference Range Interpretation Comments Glucose (test code = 2345-7) 136 mg/dL 65-99 H BUN (test code = 3094-0) 15 mg/dL 6-24 Creatinine (test code = 0.95 mg/dL 0.76-1.27 2160-0) eGFR (test code = 43706-0) 96 mL/min/1.73 >59 BUN/Creatinine Ratio (test 16 9-20 code = 3097-3) Sodium (test code = 2951-2) 139 mmol/L 134-144 Potassium (test code = 2823-3) 4.6 mmol/L 3.5-5.2 Chloride (test code = 2075-0) 102 mmol/L 96-106 Carbon Dioxide, Total (test 21 mmol/L 20-29 code = 8-9) Calcium (test code = 02430-2) 9.5 mg/dL 8.7-10.2 Protein, Total (test code = 7.0 g/dL 6.0-8.5 2885-2) Albumin (test code = 1751-7) 4.8 g/dL 3.8-4.9 Globulin, Total (test code = 2.2 g/dL 1.5-4.5 03639-0) A/G Ratio (test code = 1759-0) 2.2 1.2-2.2 Bilirubin, Total (test code = 0.7 mg/dL 0.0-1.2 1974-) Alkaline Phosphatase (test 89 IU/L 44-121 code = 6768-6) AST (SGOT) (test code = 20 IU/L 0-40 1920-8) ALT (SGPT) (test code = 21 IU/L 0-44 1742-6) [facility] Description: Comp. Metabolic Panel (14)2022-02-20 02:50:00 Test Item Value Reference Range Interpretation Comments Glucose (test code = 2345-7) 136 mg/dL 65-99 H BUN (test code = 3094-0) 15 mg/dL 6-24 Creatinine (test code = 0.95 mg/dL 0.76-1.27 2160-0) eGFR (test code = 92050-2) 96 mL/min/1.73 >59 BUN/Creatinine Ratio (test 16 9- code = 3097-3) Sodium (test code = 2951-2) 139 mmol/L 134-144 Potassium (test code = 2823-3) 4.6 mmol/L 3.5-5.2 Chloride (test code = 2075-0) 102 mmol/L 96-106 Carbon Dioxide, Total (test 21 mmol/L 20-29 code = 8-9) Calcium (test code = 16571-6) 9.5 mg/dL 8.7-10.2 Protein, Total (test code = 7.0 g/dL 6.0-8.5 2885-2) Albumin (test code = 1751-7) 4.8 g/dL 3.8-4.9 Globulin, Total (test code = 2.2 g/dL 1.5-4.5 50735-8) A/G Ratio (test code = 1759-0) 2.2 1.2-2.2 Bilirubin, Total (test code = 0.7 mg/dL 0.0-1.2 1975-2) Alkaline Phosphatase (test 89 IU/L 44-121 code = 6768-6) AST (SGOT) (test code = 20 IU/L 0-40 1920-8) ALT (SGPT) (test code = 21 IU/L 0-44 1742-6) [facility] Description: Comp. Metabolic Panel (14)2022-02-20 02:50:00 Test Item Value Reference Range Interpretation Comments Glucose (test code = 2345-7) 136 mg/dL 65-99 H BUN (test code = 3094-0) 15 mg/dL 6-24 Creatinine (test code = 0.95 mg/dL 0.76-1.27 2160-0) eGFR (test code = 65475-1) 96 mL/min/1.73 >59 BUN/Creatinine Ratio (test 16 05-01 code = 3097-3) Sodium (test code = 2951-2) 139 mmol/L 134-144 Potassium (test code = 2823-3) 4.6 mmol/L 3.5-5.2 Chloride (test code = 2075-0) 102 mmol/L 96-106 Carbon Dioxide, Total (test 21 mmol/L 20-29 code = 8-9) Calcium (test code = 08057-9) 9.5 mg/dL 8.7-10.2 Protein, Total (test code = 7.0 g/dL 6.0-8.5 2885-2) Albumin (test code = 1751-7) 4.8 g/dL 3.8-4.9 Globulin, Total (test code = 2.2 g/dL 1.5-4.5 29838-1) A/G Ratio (test code = 1759-0) 2.2 1.2-2.2 Bilirubin, Total (test code = 0.7 mg/dL 0.0-1.2 1975-2) Alkaline Phosphatase (test 89 IU/L 44-121 code = 6768-6) AST (SGOT) (test code = 20 IU/L 0-40 1920-8) ALT (SGPT) (test code = 21 IU/L 0-44 1742-6) [facility] Description: Comp. Metabolic Panel (14)2022-02-20 02:50:00 Test Item Value Reference Range Interpretation Comments Glucose (test code = 2345-7) 136 mg/dL 65-99 H BUN (test code = 3094-0) 15 mg/dL 6-24 Creatinine (test code = 0.95 mg/dL 0.76-1.27 2160-0) eGFR (test code = 96530-0) 96 mL/min/1.73 >59 BUN/Creatinine Ratio (test 16 05-01 code = 3097-3) Sodium (test code = 2951-2) 139 mmol/L 134-144 Potassium (test code = 2823-3) 4.6 mmol/L 3.5-5.2 Chloride (test code = 2075-0) 102 mmol/L 96-106 Carbon Dioxide, Total (test 21 mmol/L -29 code = 2027-) Calcium (test code = 50279-8) 9.5 mg/dL 8.7-10.2 Protein, Total (test code = 7.0 g/dL 6.0-8.5 2885-2) Albumin (test code = 1751-7) 4.8 g/dL 3.8-4.9 Globulin, Total (test code = 2.2 g/dL 1.5-4.5 52527-3) A/G Ratio (test code = 1759-0) 2.2 1.2-2.2 Bilirubin, Total (test code = 0.7 mg/dL 0.0-1.2 1975-2) Alkaline Phosphatase (test 89 IU/L 44-121 code = 6768-6) AST (SGOT) (test code = 20 IU/L 0-40 1920-8) ALT (SGPT) (test code = 21 IU/L 0-44 1742-6) [facility] Description: Comp. Metabolic Panel (14)2022-02-20 02:50:00 Test Item Value Reference Range Interpretation Comments Glucose (test code = 2345-7) 136 mg/dL 65-99 H BUN (test code = 3094-0) 15 mg/dL 6-24 Creatinine (test code = 0.95 mg/dL 0.76-1.27 2160-0) eGFR (test code = 81195-3) 96 mL/min/1.73 >59 BUN/Creatinine Ratio (test 16 -20 code = 3097-3) Sodium (test code = 2951-2) 139 mmol/L 134-144 Potassium (test code = 2823-3) 4.6 mmol/L 3.5-5.2 Chloride (test code = 2075-0) 102 mmol/L 96-106 Carbon Dioxide, Total (test 21 mmol/L -29 code = 2027-) Calcium (test code = 93205-9) 9.5 mg/dL 8.7-10.2 Protein, Total (test code = 7.0 g/dL 6.0-8.5 2885-2) Albumin (test code = 1751-7) 4.8 g/dL 3.8-4.9 Globulin, Total (test code = 2.2 g/dL 1.5-4.5 30586-9) A/G Ratio (test code = 1759-0) 2.2 1.2-2.2 Bilirubin, Total (test code = 0.7 mg/dL 0.0-1.2 1975-2) Alkaline Phosphatase (test 89 IU/L 44-121 code = 6768-6) AST (SGOT) (test code = 20 IU/L 0-40 1920-8) ALT (SGPT) (test code = 21 IU/L 0-44 1742-6) [facility] Description: Comp. Metabolic Panel (14)2022-02-20 02:50:00 Test Item Value Reference Range Interpretation Comments Glucose (test code = 2345-7) 136 mg/dL 65-99 H BUN (test code = 3094-0) 15 mg/dL 6-24 Creatinine (test code = 0.95 mg/dL 0.76-1.27 2160-0) eGFR (test code = 88918-2) 96 mL/min/1.73 >59 BUN/Creatinine Ratio (test 16 9-20 code = 3097-3) Sodium (test code = 2951-2) 139 mmol/L 134-144 Potassium (test code = 2823-3) 4.6 mmol/L 3.5-5.2 Chloride (test code = 2075-0) 102 mmol/L 96-106 Carbon Dioxide, Total (test 21 mmol/L 20-29 code = 8-9) Calcium (test code = 36695-4) 9.5 mg/dL 8.7-10.2 Protein, Total (test code = 7.0 g/dL 6.0-8.5 2885-2) Albumin (test code = 1751-7) 4.8 g/dL 3.8-4.9 Globulin, Total (test code = 2.2 g/dL 1.5-4.5 38421-9) A/G Ratio (test code = 1759-0) 2.2 1.2-2.2 Bilirubin, Total (test code = 0.7 mg/dL 0.0-1.2 1974-09) Alkaline Phosphatase (test 89 IU/L 44-121 code = 6768-6) AST (SGOT) (test code = 20 IU/L 0-40 1920-8) ALT (SGPT) (test code = 21 IU/L 0-44 1742-6) [facility] (2022-02-20 02:50:00 Test Item Value Reference Range Interpretation Comments Glucose (test code = 2345-7) 136 mg/dL 65-99 H BUN (test code = 3094-0) 15 mg/dL 6-24 Creatinine (test code = 0.95 mg/dL 0.76-1.27 2160-0) eGFR (test code = 80609-2) 96 mL/min/1.73 >59 BUN/Creatinine Ratio (test 16 9-20 code = 3097-3) Sodium (test code = 2951-2) 139 mmol/L 134-144 Potassium (test code = 2823-3) 4.6 mmol/L 3.5-5.2 Chloride (test code = 2075-0) 102 mmol/L 96-106 Carbon Dioxide, Total (test 21 mmol/L 20-29 code = 2027-9) Calcium (test code = 97089-2) 9.5 mg/dL 8.7-10.2 Protein, Total (test code = 7.0 g/dL 6.0-8.5 2885-2) Albumin (test code = 1751-7) 4.8 g/dL 3.8-4.9 Globulin, Total (test code = 2.2 g/dL 1.5-4.5 77704-7) A/G Ratio (test code = 1759-0) 2.2 1.2-2.2 Bilirubin, Total (test code = 0.7 mg/dL 0.0-1.2 1974-09) Alkaline Phosphatase (test 89 IU/L 44-121 code = 6768-6) AST (SGOT) (test code = 20 IU/L 0-40 1920-8) ALT (SGPT) (test code = 21 IU/L 0-44 1742-6) [facility] Description: Comp. Metabolic Panel (14)2022-02-20 02:50:00 Test Item Value Reference Range Interpretation Comments Glucose (test code = 2345-7) 136 mg/dL 65-99 H BUN (test code = 3094-0) 15 mg/dL 6-24 Creatinine (test code = 0.95 mg/dL 0.76-1.27 2160-0) eGFR (test code = 65944-3) 96 mL/min/1.73 >59 BUN/Creatinine Ratio (test 16 9-20 code = 3097-3) Sodium (test code = 2951-2) 139 mmol/L 134-144 Potassium (test code = 2823-3) 4.6 mmol/L 3.5-5.2 Chloride (test code = 2075-0) 102 mmol/L 96-106 Carbon Dioxide, Total (test 21 mmol/L 20-29 code = 2027-9) Calcium (test code = 33614-0) 9.5 mg/dL 8.7-10.2 Protein, Total (test code = 7.0 g/dL 6.0-8.5 2885-2) Albumin (test code = 1751-7) 4.8 g/dL 3.8-4.9 Globulin, Total (test code = 2.2 g/dL 1.5-4.5 94682-5) A/G Ratio (test code = 1759-0) 2.2 1.2-2.2 Bilirubin, Total (test code = 0.7 mg/dL 0.0-1.2 1975-2) Alkaline Phosphatase (test 89 IU/L 44-121 code = 6768-6) AST (SGOT) (test code = 20 IU/L 0-40 1920-8) ALT (SGPT) (test code = 21 IU/L 0-44 1742-6) [facility] Comp[facility] (14)2022-02-20 02:50:00 Test Item Value Reference Range Interpretation Comments Glucose (test code = 2345-7) 136 mg/dL 65-99 H BUN (test code = 3094-0) 15 mg/dL 6-24 Creatinine (test code = 0.95 mg/dL 0.76-1.27 2160-0) eGFR (test code = 51851-2) 96 mL/min/1.73 >59 BUN/Creatinine Ratio (test 16 9-20 code = 3097-3) Sodium (test code = 2951-2) 139 mmol/L 134-144 Potassium (test code = 2823-3) 4.6 mmol/L 3.5-5.2 Chloride (test code = 2075-0) 102 mmol/L 96-106 Carbon Dioxide, Total (test 21 mmol/L 20-29 code = 2028-9) Calcium (test code = 06639-0) 9.5 mg/dL 8.7-10.2 Protein, Total (test code = 7.0 g/dL 6.0-8.5 2885-2) Albumin (test code = 1751-7) 4.8 g/dL 3.8-4.9 Globulin, Total (test code = 2.2 g/dL 1.5-4.5 78033-8) A/G Ratio (test code = 1759-0) 2.2 1.2-2.2 Bilirubin, Total (test code = 0.7 mg/dL 0.0-1.2 1974-2) Alkaline Phosphatase (test 89 IU/L 44-121 code = 6768-6) AST (SGOT) (test code = 20 IU/L 0-40 1920-8) ALT (SGPT) (test code = 21 IU/L 0-44 1742-6) [facility] Lipid [id number] 05:34:00 Test Item Value Reference Range Interpretation Comments Cholesterol, Total (test code = 103 mg/dL 954-872 7445-3) Triglycerides (test code = 2571-8) 87 mg/dL 0-149 HDL Cholesterol (test code = 32 mg/dL >39 L 2084-9) VLDL Cholesterol Jose Roberto (test code = 17 mg/dL 5-40 25845-2) LDL Chol Calc (NIH) (test code = 54 mg/dL 0-99 43771-0) Comment: (test code = 67634-7) [facility]: Lipid [id number] 05:34:00 Test Item Value Reference Range Interpretation Comments Cholesterol, Total (test code = 103 mg/dL 999-998 1372-3) Triglycerides (test code = 2571-8) 87 mg/dL 0-149 HDL Cholesterol (test code = 32 mg/dL >39 L 2085-9) VLDL Cholesterol Jose Roberto (test code = 17 mg/dL 5-40 50486-9) LDL Chol Calc (NIH) (test code = 54 mg/dL 0-99 67426-6) Comment: (test code = 05196-2) [facility] Description: Lipid [id number] 05:34:00 Test Item Value Reference Range Interpretation Comments Cholesterol, Total (test code = 103 mg/dL 558-656 6886-3) Triglycerides (test code = 2571-8) 87 mg/dL 0-149 HDL Cholesterol (test code = 32 mg/dL >39 L 2085-9) VLDL Cholesterol Jose Roberto (test code = 17 mg/dL 5-40 58970-2) LDL Chol Calc (NIH) (test code = 54 mg/dL 0-99 21887-8) Comment: (test code = 13143-0) [facility] Description: Lipid [id number] 05:34:00 Test Item Value Reference Range Interpretation Comments Cholesterol, Total (test code = 103 mg/dL 419-430 6280-3) Triglycerides (test code = 2571-8) 87 mg/dL 0-149 HDL Cholesterol (test code = 32 mg/dL >39 L 2085-9) VLDL Cholesterol Jose Roberto (test code = 17 mg/dL 5-40 05564-3) LDL Chol Calc (NIH) (test code = 54 mg/dL 0-99 54553-2) Comment: (test code = 46451-4) [facility] Description: Lipid [id number] 05:34:00 Test Item Value Reference Range Interpretation Comments Cholesterol, Total (test code = 103 mg/dL 080-070 7057-3) Triglycerides (test code = 2571-8) 87 mg/dL 0-149 HDL Cholesterol (test code = 32 mg/dL >39 L 2085-9) VLDL Cholesterol Jose Roberto (test code = 17 mg/dL 5-40 61048-2) LDL Chol Calc (NIH) (test code = 54 mg/dL 0-99 08573-9) Comment: (test code = 85703-4) [facility] Description: Lipid [id number] 05:34:00 Test Item Value Reference Range Interpretation Comments Cholesterol, Total (test code = 103 mg/dL 569-501 1588-3) Triglycerides (test code = 2571-8) 87 mg/dL 0-149 HDL Cholesterol (test code = 32 mg/dL >39 L 5-9) VLDL Cholesterol Jose Roberto (test code = 17 mg/dL 5-40 37602-7) LDL Chol Calc (NIH) (test code = 54 mg/dL 0-99 44540-8) Comment: (test code = 54827-4) [facility] Description: Lipid [id number] 05:34:00 Test Item Value Reference Range Interpretation Comments Cholesterol, Total (test code = 103 mg/dL 135-148 3219-3) Triglycerides (test code = 2571-8) 87 mg/dL 0-149 HDL Cholesterol (test code = 32 mg/dL >39 L 5-9) VLDL Cholesterol Jose Roberto (test code = 17 mg/dL 5-40 84956-1) LDL Chol Calc (NIH) (test code = 54 mg/dL 0-99 18480-2) Comment: (test code = 40046-0) [facility] Description: Lipid [id number] 05:34:00 Test Item Value Reference Range Interpretation Comments Cholesterol, Total (test code = 103 mg/dL 168-073 5320-3) Triglycerides (test code = 2571-8) 87 mg/dL 0-149 HDL Cholesterol (test code = 32 mg/dL >39 L 5-9) VLDL Cholesterol Jose Roberto (test code = 17 mg/dL 5-40 58698-3) LDL Chol Calc (NIH) (test code = 54 mg/dL 0-99 67425-9) Comment: (test code = 31633-7) [facility] Description: Lipid [id number] 05:34:00 Test Item Value Reference Range Interpretation Comments Cholesterol, Total (test code = 103 mg/dL 326-883 4650-3) Triglycerides (test code = 2571-8) 87 mg/dL 0-149 HDL Cholesterol (test code = 32 mg/dL >39 L 5-9) VLDL Cholesterol Jose Roberto (test code = 17 mg/dL 5-40 95460-0) LDL Chol Calc (NIH) (test code = 54 mg/dL 0-99 78838-3) Comment: (test code = 18077-3) [facility] Description: Lipid [id number] 05:34:00 Test Item Value Reference Range Interpretation Comments Cholesterol, Total (test code = 103 mg/dL 849-841 7469-3) Triglycerides (test code = 2571-8) 87 mg/dL 0-149 HDL Cholesterol (test code = 32 mg/dL >39 L 2085-9) VLDL Cholesterol Jose Roberto (test code = 17 mg/dL 5-40 48945-0) LDL Chol Calc (NIH) (test code = 54 mg/dL 0-99 79990-4) Comment: (test code = 89433-5) [facility] Description: Lipid [id number] 05:34:00 Test Item Value Reference Range Interpretation Comments Cholesterol, Total (test code = 103 mg/dL 600-555 8344-3) Triglycerides (test code = 2571-8) 87 mg/dL 0-149 HDL Cholesterol (test code = 32 mg/dL >39 L 2085-9) VLDL Cholesterol Jose Roberto (test code = 17 mg/dL 5-40 46444-3) LDL Chol Calc (NIH) (test code = 54 mg/dL 0-99 11700-4) Comment: (test code = 93097-8) [facility] Description: Lipid [id number] 05:34:00 Test Item Value Reference Range Interpretation Comments Cholesterol, Total (test code = 103 mg/dL 707-053 6947-3) Triglycerides (test code = 2571-8) 87 mg/dL 0-149 HDL Cholesterol (test code = 32 mg/dL >39 L 5-9) VLDL Cholesterol Jose Roberto (test code = 17 mg/dL 5-40 28148-5) LDL Chol Calc (NIH) (test code = 54 mg/dL 0-99 68327-6) Comment: (test code = 01528-2) [facility] Description: Lipid [id number] 05:34:00 Test Item Value Reference Range Interpretation Comments Cholesterol, Total (test code = 103 mg/dL 716-408 7016-3) Triglycerides (test code = 2571-8) 87 mg/dL 0-149 HDL Cholesterol (test code = 32 mg/dL >39 L 2085-9) VLDL Cholesterol Jose Roberto (test code = 17 mg/dL 5-40 53894-9) LDL Chol Calc (NIH) (test code = 54 mg/dL 0-99 03918-9) Comment: (test code = 42037-1) [facility] Description: Lipid [id number] 05:34:00 Test Item Value Reference Range Interpretation Comments Cholesterol, Total (test code = 103 mg/dL 146-183 9341-3) Triglycerides (test code = 2571-8) 87 mg/dL 0-149 HDL Cholesterol (test code = 32 mg/dL >39 L 5-9) VLDL Cholesterol Jose Roberto (test code = 17 mg/dL 5-40 47000-3) LDL Chol Calc ([facility]) (test code = 54 mg/dL 0-99 49763-5) Comment: (test code = 06842-1) [facility] Description: Hemoglobin A1c/Hemoglobin.total in Blood 2021-11-21 04:44:00 Test Item Value Reference Range Interpretation Comments Hemoglobin A1c (test code 6.7 % 4.8-5.6 H . Prediabetes: 5.7 - = 4548-4) 6.4 Diabetes: > 6.4 Glycemic contro l for adults with suzanne betes: <7.0

P erformed by:
[facility] ()

[facility] Description: Hemoglobin A1c/Hemoglobin.total in Blood 2021-11-21 04:44:00 Test Item Value Reference Range Interpretation Comments Hemoglobin A1c (test code 6.7 % 4.8-5.6 H . Prediabetes: 5.7 - = 4548-4) 6.4 Diabetes: > 6.4 Glycemic contro l for adults with suzanne betes: <7.0

P erformed by:
[facility] ()

[facility] Description: Hemoglobin A1c/Hemoglobin.total in Blood 2021-11-21 04:44:00 Test Item Value Reference Range Interpretation Comments Hemoglobin A1c (test code 6.7 % 4.8-5.6 H . Prediabetes: 5.7 - = 4548-4) 6.4 Diabetes: > 6.4 Glycemic contro l for adults with suzanne betes: <7.0

P erformed by:
[facility] ()

[facility] Description: Hemoglobin A1c/Hemoglobin.total in Blood 2021-11-21 04:44:00 Test Item Value Reference Range Interpretation Comments Hemoglobin A1c (test code 6.7 % 4.8-5.6 H . Prediabetes: 5.7 - = 4548-4) 6.4 Diabetes: > 6.4 Glycemic contro l for adults with suzanne betes: <7.0

P erformed by:
[facility] ([place])

[facility] Description: Hemoglobin A1c/Hemoglobin.total in Blood 2021-11-21 04:44:00 Test Item Value Reference Range Interpretation Comments Hemoglobin A1c (test code 6.7 % 4.8-5.6 H . Prediabetes: 5.7 - = 4548-4) 6.4 Diabetes: > 6.4 Glycemic contro l for adults with suzanne betes: <7.0

P erformed by:
[facility] ([place])

[facility] Description: Hemoglobin A1c/Hemoglobin.total in Blood 2021-11-21 04:44:00 Test Item Value Reference Range Interpretation Comments Hemoglobin A1c (test code 6.7 % 4.8-5.6 H . Prediabetes: 5.7 - = 4548-4) 6.4 Diabetes: > 6.4 Glycemic contro l for adults with suzanne betes: <7.0Performed by:[facility] Georgette martinez ([place]) [facility] Description: Hemoglobin A1c/Hemoglobin.total in Blood 2021-11-21 04:44:00 Test Item Value Reference Range Interpretation Comments Hemoglobin A1c (test code 6.7 % 4.8-5.6 H . Prediabetes: 5.7 - = 4548-4) 6.4 Diabetes: > 6.4 Glycemic contro l for adults with suzanne betes: <7.0Performed by:[facility] ([place]) [facility] Description: Hemoglobin A1c/Hemoglobin.total in Blood 2021-11-21 04:44:00 Test Item Value Reference Range Interpretation Comments Hemoglobin A1c (test code 6.7 % 4.8-5.6 H . Prediabetes: 5.7 - = 4548-4) 6.4 Diabetes: > 6.4 Glycemic contro l for adults with suzanne betes: <7.0Performed by:[facility] ([place]) [facility] Description: Hemoglobin A1c/Hemoglobin.total in Blood 2021-11-21 04:44:00 Test Item Value Reference Range Interpretation Comments Hemoglobin A1c (test code 6.7 % 4.8-5.6 H . Prediabetes: 5.7 - = 4548-4) 6.4 Diabetes: > 6.4 Glycemic contro l for adults with suzanne betes: <7.0Performed by:[facility] ([place]) [facility] Description: Hemoglobin A1c/Hemoglobin.total in Blood 2021-11-21 04:44:00 Test Item Value Reference Range Interpretation Comments Hemoglobin A1c (test code 6.7 % 4.8-5.6 H . Prediabetes: 5.7 - = 4548-4) 6.4 Diabetes: > 6.4 Glycemic contro l for adults with suzanne betes: <7.0Performed by:[facility] ([place]) [facility] Description: Hemoglobin A1c/Hemoglobin.total in Blood 2021-11-21 04:44:00 Test Item Value Reference Range Interpretation Comments Hemoglobin A1c (test code 6.7 % 4.8-5.6 H . Prediabetes: 5.7 - = 4548-4) 6.4 Diabetes: > 6.4 Glycemic contro l for adults with suzanne betes: <7.0Performed by:[facility] ([place]) [facility] Description: Hemoglobin A1c/Hemoglobin.total in Blood 2021-11-21 04:44:00 Test Item Value Reference Range Interpretation Comments Hemoglobin A1c (test code 6.7 % 4.8-5.6 H . Prediabetes: 5.7 - = 4548-4) 6.4 Diabetes: > 6.4 Glycemic contro l for adults with suzanne betes: <7.0Performed by:[facility] ([place]) [facility] Description: Hemoglobin A1c/Hemoglobin.total in Blood 2021-11-21 04:44:00 Test Item Value Reference Range Interpretation Comments Hemoglobin A1c (test code 6.7 % 4.8-5.6 H . Prediabetes: 5.7 - = 4548-4) 6.4 Diabetes: > 6.4 Glycemic contro l for adults with suzanne betes: <7.0Performed by:[facility] ([place]) [facility] Description: Hemoglobin A1c/Hemoglobin.total in Blood 2021-11-21 04:44:00 Test Item Value Reference Range Interpretation Comments Hemoglobin A1c (test code 6.7 % 4.8-5.6 H . Prediabetes: 5.7 - = 4548-4) 6.4 Diabetes: > 6.4 Glycemic contro l for adults with suzanne betes: <7.0Performed by:[facility] ([place]) [facility] Description: Comp. Metabolic Panel (14)2021-11-21 04:38:00 Test Item Value Reference Range Interpretation Comments Glucose (test code = 2345-7) 170 mg/dL 65-99 H BUN (test code = 3094-0) 11 mg/dL 6-24 Creatinine (test code = 0.92 mg/dL 0.76-1.27 2160-0) eGFR (test code = 91872-6) 99 mL/min/1.73 >59 BUN/Creatinine Ratio (test 12 9-20 code = 3097-3) Sodium (test code = 2951-2) 137 mmol/L 134-144 Potassium (test code = 2823-3) 4.1 mmol/L 3.5-5.2 Chloride (test code = 2075-0) 102 mmol/L 96-106 Carbon Dioxide, Total (test 22 mmol/L 20-29 code = 2027-9) Calcium (test code = 23658-9) 9.4 mg/dL 8.7-10.2 Protein, Total (test code = 6.7 g/dL 6.0-8.5 2885-2) Albumin (test code = 1751-7) 4.4 g/dL 3.8-4.9 Globulin, Total (test code = 2.3 g/dL 1.5-4.5 05763-7) A/G Ratio (test code = 1759-0) 1.9 1.2-2.2 Bilirubin, Total (test code = 0.6 mg/dL 0.0-1.2 1975-2) Alkaline Phosphatase (test 79 IU/L 44-121 code = 6768-6) AST (SGOT) (test code = 24 IU/L 0-40 1920-8) ALT (SGPT) (test code = 17 IU/L 0-44 1742-6) [facility] Description: Comp. Metabolic Panel (14)2021-11-21 04:38:00 Test Item Value Reference Range Interpretation Comments Glucose (test code = 2345-7) 170 mg/dL 65-99 H BUN (test code = 3094-0) 11 mg/dL 6-24 Creatinine (test code = 0.92 mg/dL 0.76-1.27 2160-0) eGFR (test code = 86801-1) 99 mL/min/1.73 >59 BUN/Creatinine Ratio (test 12 05-01 code = 3097-3) Sodium (test code = 2951-2) 137 mmol/L 134-144 Potassium (test code = 2823-3) 4.1 mmol/L 3.5-5.2 Chloride (test code = 2075-0) 102 mmol/L 96-106 Carbon Dioxide, Total (test 22 mmol/L 20-29 code = 2027-9) Calcium (test code = 35690-7) 9.4 mg/dL 8.7-10.2 Protein, Total (test code = 6.7 g/dL 6.0-8.5 2885-2) Albumin (test code = 1751-7) 4.4 g/dL 3.8-4.9 Globulin, Total (test code = 2.3 g/dL 1.5-4.5 00682-0) A/G Ratio (test code = 1759-0) 1.9 1.2-2.2 Bilirubin, Total (test code = 0.6 mg/dL 0.0-1.2 1975-2) Alkaline Phosphatase (test 79 IU/L 44-121 code = 6768-6) AST (SGOT) (test code = 24 IU/L 0-40 1920-8) ALT (SGPT) (test code = 17 IU/L 0-44 1742-6) [facility] Description: Comp. Metabolic Panel (14)2021-11-21 04:38:00 Test Item Value Reference Range Interpretation Comments Glucose (test code = 2345-7) 170 mg/dL 65-99 H BUN (test code = 3094-0) 11 mg/dL 6-24 Creatinine (test code = 0.92 mg/dL 0.76-1.27 2160-0) eGFR (test code = 93665-3) 99 mL/min/1.73 >59 BUN/Creatinine Ratio (test 12 05-01 code = 3097-3) Sodium (test code = 2951-2) 137 mmol/L 134-144 Potassium (test code = 2823-3) 4.1 mmol/L 3.5-5.2 Chloride (test code = 2075-0) 102 mmol/L 96-106 Carbon Dioxide, Total (test 22 mmol/L 20-29 code = 2027-9) Calcium (test code = 19639-7) 9.4 mg/dL 8.7-10.2 Protein, Total (test code = 6.7 g/dL 6.0-8.5 2885-2) Albumin (test code = 1751-7) 4.4 g/dL 3.8-4.9 Globulin, Total (test code = 2.3 g/dL 1.5-4.5 33160-6) A/G Ratio (test code = 1759-0) 1.9 1.2-2.2 Bilirubin, Total (test code = 0.6 mg/dL 0.0-1.2 1975-2) Alkaline Phosphatase (test 79 IU/L 44-121 code = 6768-6) AST (SGOT) (test code = 24 IU/L 0-40 1920-8) ALT (SGPT) (test code = 17 IU/L 0-44 1742-6) [facility] Description: Comp. Metabolic Panel (14)2021-11-21 04:38:00 Test Item Value Reference Range Interpretation Comments Glucose (test code = 2345-7) 170 mg/dL 65-99 H BUN (test code = 3094-0) 11 mg/dL 6-24 Creatinine (test code = 0.92 mg/dL 0.76-1.27 2160-0) eGFR (test code = 27048-9) 99 mL/min/1.73 >59 BUN/Creatinine Ratio (test 05-01 code = 3097-3) Sodium (test code = 2951-2) 137 mmol/L 134-144 Potassium (test code = 2823-3) 4.1 mmol/L 3.5-5.2 Chloride (test code = 2075-0) 102 mmol/L 96-106 Carbon Dioxide, Total (test 22 mmol/L -29 code = 2027-) Calcium (test code = 26215-8) 9.4 mg/dL 8.7-10.2 Protein, Total (test code = 6.7 g/dL 6.0-8.5 2885-2) Albumin (test code = 1751-7) 4.4 g/dL 3.8-4.9 Globulin, Total (test code = 2.3 g/dL 1.5-4.5 90118-7) A/G Ratio (test code = 1759-0) 1.9 1.2-2.2 Bilirubin, Total (test code = 0.6 mg/dL 0.0-1.2 1975-2) Alkaline Phosphatase (test 79 IU/L 44-121 code = 6768-6) AST (SGOT) (test code = 24 IU/L 0-40 1920-8) ALT (SGPT) (test code = 17 IU/L 0-44 1742-6) [facility] Description: Comp. Metabolic Panel (142021-11-21 04:38:00 Test Item Value Reference Range Interpretation Comments Glucose (test code = 2345-7) 170 mg/dL 65-99 H BUN (test code = 3094-0) 11 mg/dL 6-24 Creatinine (test code = 0.92 mg/dL 0.76-1.27 2160-0) eGFR (test code = 01498-5) 99 mL/min/1.73 >59 BUN/Creatinine Ratio (test 12 05-01 code = 3097-3) Sodium (test code = 2951-2) 137 mmol/L 134-144 Potassium (test code = 2823-3) 4.1 mmol/L 3.5-5.2 Chloride (test code = 2075-0) 102 mmol/L 96-106 Carbon Dioxide, Total (test 22 mmol/L -29 code = 2027-9) Calcium (test code = 97976-9) 9.4 mg/dL 8.7-10.2 Protein, Total (test code = 6.7 g/dL 6.0-8.5 2885-2) Albumin (test code = 1751-7) 4.4 g/dL 3.8-4.9 Globulin, Total (test code = 2.3 g/dL 1.5-4.5 33348-5) A/G Ratio (test code = 1759-0) 1.9 1.2-2.2 Bilirubin, Total (test code = 0.6 mg/dL 0.0-1.2 1975-2) Alkaline Phosphatase (test 79 IU/L 44-121 code = 6768-6) AST (SGOT) (test code = 24 IU/L 0-40 1920-8) ALT (SGPT) (test code = 17 IU/L 0-44 1742-6) [facility] Description: Comp. Metabolic Panel (14)2021-11-21 04:38:00 Test Item Value Reference Range Interpretation Comments Glucose (test code = 2345-7) 170 mg/dL 65-99 H BUN (test code = 3094-0) 11 mg/dL 6-24 Creatinine (test code = 0.92 mg/dL 0.76-1.27 2160-0) eGFR (test code = 54992-8) 99 mL/min/1.73 >59 BUN/Creatinine Ratio (test 12 - code = 3097-3) Sodium (test code = 2951-2) 137 mmol/L 134-144 Potassium (test code = 2823-3) 4.1 mmol/L 3.5-5.2 Chloride (test code = 2075-0) 102 mmol/L 96-106 Carbon Dioxide, Total (test 22 mmol/L 20-29 code = 2027-9) Calcium (test code = 46237-1) 9.4 mg/dL 8.7-10.2 Protein, Total (test code = 6.7 g/dL 6.0-8.5 2885-2) Albumin (test code = 1751-7) 4.4 g/dL 3.8-4.9 Globulin, Total (test code = 2.3 g/dL 1.5-4.5 15888-2) A/G Ratio (test code = 1759-0) 1.9 1.2-2.2 Bilirubin, Total (test code = 0.6 mg/dL 0.0-1.2 1974-09) Alkaline Phosphatase (test 79 IU/L 44-121 code = 6768-6) AST (SGOT) (test code = 24 IU/L 0-40 1920-8) ALT (SGPT) (test code = 17 IU/L 0-44 1742-6) [facility] (142021-11-21 04:38:00 Test Item Value Reference Range Interpretation Comments Glucose (test code = 2345-7) 170 mg/dL 65-99 H BUN (test code = 3094-0) 11 mg/dL 6-24 Creatinine (test code = 0.92 mg/dL 0.76-1.27 2160-0) eGFR (test code = 65906-1) 99 mL/min/1.73 >59 BUN/Creatinine Ratio (test 12 - code = 3097-3) Sodium (test code = 2951-2) 137 mmol/L 134-144 Potassium (test code = 2823-3) 4.1 mmol/L 3.5-5.2 Chloride (test code = 2075-0) 102 mmol/L 96-106 Carbon Dioxide, Total (test 22 mmol/L 20-29 code = 2027-9) Calcium (test code = 14584-1) 9.4 mg/dL 8.7-10.2 Protein, Total (test code = 6.7 g/dL 6.0-8.5 2885-2) Albumin (test code = 1751-7) 4.4 g/dL 3.8-4.9 Globulin, Total (test code = 2.3 g/dL 1.5-4.5 83915-0) A/G Ratio (test code = 1759-0) 1.9 1.2-2.2 Bilirubin, Total (test code = 0.6 mg/dL 0.0-1.2 1974-09) Alkaline Phosphatase (test 79 IU/L 44-121 code = 6768-6) AST (SGOT) (test code = 24 IU/L 0-40 1920-8) ALT (SGPT) (test code = 17 IU/L 0-44 1742-6) [facility] Description: Comp. Metabolic Panel (14)2021-11-21 04:38:00 Test Item Value Reference Range Interpretation Comments Glucose (test code = 2345-7) 170 mg/dL 65-99 H BUN (test code = 3094-0) 11 mg/dL 6-24 Creatinine (test code = 0.92 mg/dL 0.76-1.27 2160-0) eGFR (test code = 77430-1) 99 mL/min/1.73 >59 BUN/Creatinine Ratio (test 12 05-01 code = 3097-3) Sodium (test code = 2951-2) 137 mmol/L 134-144 Potassium (test code = 2823-3) 4.1 mmol/L 3.5-5.2 Chloride (test code = 2075-0) 102 mmol/L 96-106 Carbon Dioxide, Total (test 22 mmol/L - code = 2027-9) Calcium (test code = 58217-5) 9.4 mg/dL 8.7-10.2 Protein, Total (test code = 6.7 g/dL 6.0-8.5 2885-2) Albumin (test code = 1751-7) 4.4 g/dL 3.8-4.9 Globulin, Total (test code = 2.3 g/dL 1.5-4.5 31502-5) A/G Ratio (test code = 1759-0) 1.9 1.2-2.2 Bilirubin, Total (test code = 0.6 mg/dL 0.0-1.2 1975-2) Alkaline Phosphatase (test 79 IU/L 44-121 code = 6768-6) AST (SGOT) (test code = 24 IU/L 0-40 1920-8) ALT (SGPT) (test code = 17 IU/L 0-44 1742-6) [facility] Description: Comp. Metabolic Panel ()2021-11-21 04:38:00 Test Item Value Reference Range Interpretation Comments Glucose (test code = 2345-7) 170 mg/dL 65-99 H BUN (test code = 3094-0) 11 mg/dL 6-24 Creatinine (test code = 0.92 mg/dL 0.76-1.27 2160-0) eGFR (test code = 64136-1) 99 mL/min/1.73 >59 BUN/Creatinine Ratio (test 05-01 code = 3097-3) Sodium (test code = 2951-2) 137 mmol/L 134-144 Potassium (test code = 2823-3) 4.1 mmol/L 3.5-5.2 Chloride (test code = 2075-0) 102 mmol/L 96-106 Carbon Dioxide, Total (test 22 mmol/L code = 2027-9) Calcium (test code = 05747-4) 9.4 mg/dL 8.7-10.2 Protein, Total (test code = 6.7 g/dL 6.0-8.5 2885-2) Albumin (test code = 1751-7) 4.4 g/dL 3.8-4.9 Globulin, Total (test code = 2.3 g/dL 1.5-4.5 50330-9) A/G Ratio (test code = 1759-0) 1.9 1.2-2.2 Bilirubin, Total (test code = 0.6 mg/dL 0.0-1.2 1975-2) Alkaline Phosphatase (test 79 IU/L 44-121 code = 6768-6) AST (SGOT) (test code = 24 IU/L 0-40 1920-8) ALT (SGPT) (test code = 17 IU/L 0-44 1742-6) [facility] Description: Comp. Metabolic Panel (14)2021-11-21 04:38:00 Test Item Value Reference Range Interpretation Comments Glucose (test code = 2345-7) 170 mg/dL 65-99 H BUN (test code = 3094-0) 11 mg/dL 6-24 Creatinine (test code = 0.92 mg/dL 0.76-1.27 2160-0) eGFR (test code = 55051-9) 99 mL/min/1.73 >59 BUN/Creatinine Ratio (test 05-01 code = 3097-3) Sodium (test code = 2951-2) 137 mmol/L 134-144 Potassium (test code = 2823-3) 4.1 mmol/L 3.5-5.2 Chloride (test code = 2075-0) 102 mmol/L 96-106 Carbon Dioxide, Total (test 22 mmol/L code = 2027-) Calcium (test code = 11936-8) 9.4 mg/dL 8.7-10.2 Protein, Total (test code = 6.7 g/dL 6.0-8.5 2885-2) Albumin (test code = 1751-7) 4.4 g/dL 3.8-4.9 Globulin, Total (test code = 2.3 g/dL 1.5-4.5 99064-9) A/G Ratio (test code = 1759-0) 1.9 1.2-2.2 Bilirubin, Total (test code = 0.6 mg/dL 0.0-1.2 1975-2) Alkaline Phosphatase (test 79 IU/L 44-121 code = 6768-6) AST (SGOT) (test code = 24 IU/L 0-40 1920-8) ALT (SGPT) (test code = 17 IU/L 0-44 1742-6) [facility] Description: Comp. Metabolic Panel (14)2021-11-21 04:38:00 Test Item Value Reference Range Interpretation Comments Glucose (test code = 2345-7) 170 mg/dL 65-99 H BUN (test code = 3094-0) 11 mg/dL 6-24 Creatinine (test code = 0.92 mg/dL 0.76-1.27 2160-0) eGFR (test code = 77344-1) 99 mL/min/1.73 >59 BUN/Creatinine Ratio (test 12 05-01 code = 3097-3) Sodium (test code = 2951-2) 137 mmol/L 134-144 Potassium (test code = 2823-3) 4.1 mmol/L 3.5-5.2 Chloride (test code = 2075-0) 102 mmol/L 96-106 Carbon Dioxide, Total (test 22 mmol/L 29 code = 2027-9) Calcium (test code = 31202-8) 9.4 mg/dL 8.7-10.2 Protein, Total (test code = 6.7 g/dL 6.0-8.5 2885-2) Albumin (test code = 1751-7) 4.4 g/dL 3.8-4.9 Globulin, Total (test code = 2.3 g/dL 1.5-4.5 89293-1) A/G Ratio (test code = 1759-0) 1.9 1.2-2.2 Bilirubin, Total (test code = 0.6 mg/dL 0.0-1.2 1974-) Alkaline Phosphatase (test 79 IU/L 44-121 code = 6768-6) AST (SGOT) (test code = 24 IU/L 0-40 1920-8) ALT (SGPT) (test code = 17 IU/L 0-44 1742-6) [facility] Description: Comp. Metabolic Panel (14)2021-11-21 04:38:00 Test Item Value Reference Range Interpretation Comments Glucose (test code = 2345-7) 170 mg/dL 65-99 H BUN (test code = 3094-0) 11 mg/dL 6-24 Creatinine (test code = 0.92 mg/dL 0.76-1.27 2160-0) eGFR (test code = 16069-6) 99 mL/min/1.73 >59 BUN/Creatinine Ratio (test 12 - code = 3097-3) Sodium (test code = 2951-2) 137 mmol/L 134-144 Potassium (test code = 2823-3) 4.1 mmol/L 3.5-5.2 Chloride (test code = 2075-0) 102 mmol/L 96-106 Carbon Dioxide, Total (test 22 mmol/L 20-29 code = 8-9) Calcium (test code = 27960-2) 9.4 mg/dL 8.7-10.2 Protein, Total (test code = 6.7 g/dL 6.0-8.5 2885-2) Albumin (test code = 1751-7) 4.4 g/dL 3.8-4.9 Globulin, Total (test code = 2.3 g/dL 1.5-4.5 94806-4) A/G Ratio (test code = 1759-0) 1.9 1.2-2.2 Bilirubin, Total (test code = 0.6 mg/dL 0.0-1.2 1974-) Alkaline Phosphatase (test 79 IU/L 44-121 code = 6768-6) AST (SGOT) (test code = 24 IU/L 0-40 1920-8) ALT (SGPT) (test code = 17 IU/L 0-44 1742-6) [facility] Description: Comp. Metabolic Panel (14)2021-11-21 04:38:00 Test Item Value Reference Range Interpretation Comments Glucose (test code = 2345-7) 170 mg/dL 65-99 H BUN (test code = 3094-0) 11 mg/dL 6-24 Creatinine (test code = 0.92 mg/dL 0.76-1.27 2160-0) eGFR (test code = 71502-5) 99 mL/min/1.73 >59 BUN/Creatinine Ratio (test 12 - code = 3097-3) Sodium (test code = 2951-2) 137 mmol/L 134-144 Potassium (test code = 2823-3) 4.1 mmol/L 3.5-5.2 Chloride (test code = 2075-0) 102 mmol/L 96-106 Carbon Dioxide, Total (test 22 mmol/L 20-29 code = 2027-9) Calcium (test code = 62903-7) 9.4 mg/dL 8.7-10.2 Protein, Total (test code = 6.7 g/dL 6.0-8.5 2885-2) Albumin (test code = 1751-7) 4.4 g/dL 3.8-4.9 Globulin, Total (test code = 2.3 g/dL 1.5-4.5 28903-4) A/G Ratio (test code = 1759-0) 1.9 1.2-2.2 Bilirubin, Total (test code = 0.6 mg/dL 0.0-1.2 1975-2) Alkaline Phosphatase (test 79 IU/L 44-121 code = 6768-6) AST (SGOT) (test code = 24 IU/L 0-40 1920-8) ALT (SGPT) (test code = 17 IU/L 0-44 1742-6) [facility] Description: Comp. Metabolic Panel (14)2021-11-21 04:38:00 Test Item Value Reference Range Interpretation Comments Glucose (test code = 2345-7) 170 mg/dL 65-99 H BUN (test code = 3094-0) 11 mg/dL 6-24 Creatinine (test code = 0.92 mg/dL 0.76-1.27 2160-0) eGFR (test code = 78442-0) 99 mL/min/1.73 >59 BUN/Creatinine Ratio (test 12 -20 code = 3097-3) Sodium (test code = 2951-2) 137 mmol/L 134-144 Potassium (test code = 2823-3) 4.1 mmol/L 3.5-5.2 Chloride (test code = 2075-0) 102 mmol/L 96-106 Carbon Dioxide, Total (test 22 mmol/L 20-29 code = 2028-9) Calcium (test code = 36764-0) 9.4 mg/dL 8.7-10.2 Protein, Total (test code = 6.7 g/dL 6.0-8.5 2885-2) Albumin (test code = 1751-7) 4.4 g/dL 3.8-4.9 Globulin, Total (test code = 2.3 g/dL 1.5-4.5 07265-8) A/G Ratio (test code = 1759-0) 1.9 1.2-2.2 Bilirubin, Total (test code = 0.6 mg/dL 0.0-1.2 1975-2) Alkaline Phosphatase (test 79 IU/L 44-121 code = 6768-6) AST (SGOT) (test code = 24 IU/L 0-40 1920-8) ALT (SGPT) (test code = 17 IU/L 0-44 1742-6) [facility] Description: Hemoglobin A1c/Hemoglobin.total in Blood 2021-08-26 13:13:00 Test Item Value Reference Range Interpretation Comments Hemoglobin A1c (test code 6.7 % 4.8-5.6 H . Prediabetes: 5.7 - = 4548-4) 6.4 Diabetes: > 6.4 Glycemic contro l for adults with suzanne betes: <7.0

P erformed by:
[facility] ([place])

[facility] Description: Hemoglobin A1c/Hemoglobin.total in Blood 2021-08-26 13:13:00 Test Item Value Reference Range Interpretation Comments Hemoglobin A1c (test code 6.7 % 4.8-5.6 H . Prediabetes: 5.7 - = 4548-4) 6.4 Diabetes: > 6.4 Glycemic contro l for adults with suzanne betes: <7.0

P erformed by:
[facility] ()

[facility] Description: Hemoglobin A1c/Hemoglobin.total in Blood 2021-08-26 13:13:00 Test Item Value Reference Range Interpretation Comments Hemoglobin A1c (test code 6.7 % 4.8-5.6 H . Prediabetes: 5.7 - = 4548-4) 6.4 Diabetes: > 6.4 Glycemic contro l for adults with suzanne betes: <7.0

P erformed by:
[facility] ()

[facility] Description: Hemoglobin A1c/Hemoglobin.total in Blood 2021-08-26 13:13:00 Test Item Value Reference Range Interpretation Comments Hemoglobin A1c (test code 6.7 % 4.8-5.6 H . Prediabetes: 5.7 - = 4548-4) 6.4 Diabetes: > 6.4 Glycemic contro l for adults with suzanne betes: <7.0

P erformed by:
[facility] ()

[facility] Description: Hemoglobin A1c/Hemoglobin.total in Blood 2021-08-26 13:13:00 Test Item Value Reference Range Interpretation Comments Hemoglobin A1c (test code 6.7 % 4.8-5.6 H . Prediabetes: 5.7 - = 4548-4) 6.4 Diabetes: > 6.4 Glycemic contro l for adults with suzanne betes: <7.0

P erformed by:
[facility] ()

[facility] Description: Hemoglobin A1c/Hemoglobin.total in Blood 2021-08-26 13:13:00 Test Item Value Reference Range Interpretation Comments Hemoglobin A1c (test code 6.7 % 4.8-5.6 H . Prediabetes: 5.7 - = 4548-4) 6.4 Diabetes: > 6.4 Glycemic contro l for adults with suzanne betes: <7.0

P erformed by:
[facility] ([place])

[facility] Description: Hemoglobin A1c/Hemoglobin.total in Blood 2021-08-26 13:13:00 Test Item Value Reference Range Interpretation Comments Hemoglobin A1c (test code 6.7 % 4.8-5.6 H . Prediabetes: 5.7 - = 4548-4) 6.4 Diabetes: > 6.4 Glycemic contro l for adults with suzanne betes: <7.0

P erformed by:
[facility] ([place])

[facility] Description: Hemoglobin A1c/Hemoglobin.total in Blood 2021-08-26 13:13:00 Test Item Value Reference Range Interpretation Comments Hemoglobin A1c (test code 6.7 % 4.8-5.6 H . Prediabetes: 5.7 - = 4548-4) 6.4 Diabetes: > 6.4 Glycemic contro l for adults with suzanne betes: <7.0Performed by:[facility] ([place]) [facility] Description: Hemoglobin A1c/Hemoglobin.total in Blood 2021-08-26 13:13:00 Test Item Value Reference Range Interpretation Comments Hemoglobin A1c (test code 6.7 % 4.8-5.6 H . Prediabetes: 5.7 - = 4548-4) 6.4 Diabetes: > 6.4 Glycemic contro l for adults with suzanne betes: <7.0Performed by:[facility] ([place]) [facility] Description: Hemoglobin A1c/Hemoglobin.total in Blood 2021-08-26 13:13:00 Test Item Value Reference Range Interpretation Comments Hemoglobin A1c (test code 6.7 % 4.8-5.6 H . Prediabetes: 5.7 - = 4548-4) 6.4 Diabetes: > 6.4 Glycemic contro l for adults with suzanne betes: <7.0Performed by:[facility] ([place]) [facility] Description: Hemoglobin A1c/Hemoglobin.total in Blood 2021-08-26 13:13:00 Test Item Value Reference Range Interpretation Comments Hemoglobin A1c (test code 6.7 % 4.8-5.6 H . Prediabetes: 5.7 - = 4548-4) 6.4 Diabetes: > 6.4 Glycemic contro l for adults with suzanne betes: <7.0Performed by:[facility] ([place]) [facility] Description: Hemoglobin A1c/Hemoglobin.total in Blood 2021-08-26 13:13:00 Test Item Value Reference Range Interpretation Comments Hemoglobin A1c (test code 6.7 % 4.8-5.6 H . Prediabetes: 5.7 - = 4548-4) 6.4 Diabetes: > 6.4 Glycemic contro l for adults with suzanne betes: <7.0Performed by:[facility] ([place]) [facility] Description: Hemoglobin A1c/Hemoglobin.total in Blood 2021-08-26 13:13:00 Test Item Value Reference Range Interpretation Comments Hemoglobin A1c (test code 6.7 % 4.8-5.6 H . Prediabetes: 5.7 - = 4548-4) 6.4 Diabetes: > 6.4 Glycemic contro l for adults with suzanne betes: <7.0Performed by:[facility] ([place]) [facility] Description: Hemoglobin A1c/Hemoglobin.total in Blood 2021-08-26 13:13:00 Test Item Value Reference Range Interpretation Comments Hemoglobin A1c (test code 6.7 % 4.8-5.6 H . Prediabetes: 5.7 - = 4548-4) 6.4 Diabetes: > 6.4 Glycemic contro l for adults with suzanne betes: <7.0Performed by:[facility] ([place]) [facility] Description: Hemoglobin A1c/Hemoglobin.total in Blood 2021-08-26 13:13:00 Test Item Value Reference Range Interpretation Comments Hemoglobin A1c (test code 6.7 % 4.8-5.6 H . Prediabetes: 5.7 - = 4548-4) 6.4 Diabetes: > 6.4 Glycemic contro l for adults with suzanne betes: <7.0Performed by:[facility] ([place]) [facility] Description: Hemoglobin A1c/Hemoglobin.total in Blood 2021-08-26 13:13:00 Test Item Value Reference Range Interpretation Comments Hemoglobin A1c (test code 6.7 % 4.8-5.6 H . Prediabetes: 5.7 - = 4548-4) 6.4 Diabetes: > 6.4 Glycemic contro l for adults with suzanne betes: <7.0Performed by:Chet martinez () [facility] Description: Hemoglobin A1c/Hemoglobin.total in Blood 2021-08-26 13:13:00 Test Item Value Reference Range Interpretation Comments Hemoglobin A1c (test code 6.7 % 4.8-5.6 H . Prediabetes: 5.7 - = 4548-4) 6.4 Diabetes: > 6.4 Glycemic contro l for adults with suzanne betes: <7.0

P erformed by:
C[facility] ()

[facility] Description: Lipid [id number] 03:54:00 Test Item Value Reference Range Interpretation Comments Cholesterol, Total (test code = 108 mg/dL 257-671 8555-3) Triglycerides (test code = 2571-8) 118 mg/dL 0-149 HDL Cholesterol (test code = 34 mg/dL >39 L 2085-04) VLDL Cholesterol Jose Roberto (test code = 22 mg/dL 5-40 45455-8) LDL Chol Calc (NIH) (test code = 52 mg/dL 0-99 23550-8) Comment: (test code = 52358-8) [facility]: Lipid [id number] 03:54:00 Test Item Value Reference Range Interpretation Comments Cholesterol, Total (test code = 108 mg/dL 378-291 3299-3) Triglycerides (test code = 2571-8) 118 mg/dL 0-149 HDL Cholesterol (test code = 34 mg/dL >39 L 9) VLDL Cholesterol Jose Roberto (test code = 22 mg/dL 5-40 61171-1) LDL Chol Calc (NIH) (test code = 52 mg/dL 0-99 94065-5) Comment: (test code = 61726-0) [facility]: Lipid [id number] 03:54:00 Test Item Value Reference Range Interpretation Comments Cholesterol, Total (test code = 108 mg/dL 182-159 3849-3) Triglycerides (test code = 2571-8) 118 mg/dL 0-149 HDL Cholesterol (test code = 34 mg/dL >39 L 5-9) VLDL Cholesterol Jose Roberto (test code = 22 mg/dL 5-40 91987-1) LDL Chol Calc (NIH) (test code = 52 mg/dL 0-99 39258-8) Comment: (test code = 63403-1) [facility] Description: Lipid [id number] 03:54:00 Test Item Value Reference Range Interpretation Comments Cholesterol, Total (test code = 108 mg/dL 452-676 5647-3) Triglycerides (test code = 2571-8) 118 mg/dL 0-149 HDL Cholesterol (test code = 34 mg/dL >39 L 5-9) VLDL Cholesterol Jose Roberto (test code = 22 mg/dL 5-40 60307-7) LDL Chol Calc (NIH) (test code = 52 mg/dL 0-99 80957-2) Comment: (test code = 01876-9) [facility] Description: Lipid [id number] 03:54:00 Test Item Value Reference Range Interpretation Comments Cholesterol, Total (test code = 108 mg/dL 749-397 2206-3) Triglycerides (test code = 2571-8) 118 mg/dL 0-149 HDL Cholesterol (test code = 34 mg/dL >39 L 5-9) VLDL Cholesterol Jose Roberto (test code = 22 mg/dL 5-40 34624-1) LDL Chol Calc (NIH) (test code = 52 mg/dL 0-99 95185-3) Comment: (test code = 46959-2) [facility] Description: Lipid [id number] 03:54:00 Test Item Value Reference Range Interpretation Comments Cholesterol, Total (test code = 108 mg/dL 382-996 6616-3) Triglycerides (test code = 2571-8) 118 mg/dL 0-149 HDL Cholesterol (test code = 34 mg/dL >39 L 5-9) VLDL Cholesterol Jose Roberto (test code = 22 mg/dL 5-40 38822-0) LDL Chol Calc (NIH) (test code = 52 mg/dL 0-99 70505-9) Comment: (test code = 38135-0) [facility] Description: Lipid [id number] 03:54:00 Test Item Value Reference Range Interpretation Comments Cholesterol, Total (test code = 108 mg/dL 699-603 2091-3) Triglycerides (test code = 2571-8) 118 mg/dL 0-149 HDL Cholesterol (test code = 34 mg/dL >39 L 5-9) VLDL Cholesterol Jose Roberto (test code = 22 mg/dL 5-40 79006-8) LDL Chol Calc (NIH) (test code = 52 mg/dL 0-99 95916-8) Comment: (test code = 02132-4) [facility] Description: Lipid [id number] 03:54:00 Test Item Value Reference Range Interpretation Comments Cholesterol, Total (test code = 108 mg/dL 038-497 2435-3) Triglycerides (test code = 2571-8) 118 mg/dL 0-149 HDL Cholesterol (test code = 34 mg/dL >39 L 5-9) VLDL Cholesterol Jose Roberto (test code = 22 mg/dL 5-40 19870-1) LDL Chol Calc (NIH) (test code = 52 mg/dL 0-99 90558-4) Comment: (test code = 80950-4) [facility] Description: Lipid [id number] 03:54:00 Test Item Value Reference Range Interpretation Comments Cholesterol, Total (test code = 108 mg/dL 772-517 9505-3) Triglycerides (test code = 2571-8) 118 mg/dL 0-149 HDL Cholesterol (test code = 34 mg/dL >39 L 5-9) VLDL Cholesterol Jose Roberto (test code = 22 mg/dL 5-40 64635-6) LDL Chol Calc (NIH) (test code = 52 mg/dL 0-99 84622-3) Comment: (test code = 88928-4) [facility] Description: Lipid [id number] 03:54:00 Test Item Value Reference Range Interpretation Comments Cholesterol, Total (test code = 108 mg/dL 781-416 2116-3) Triglycerides (test code = 2571-8) 118 mg/dL 0-149 HDL Cholesterol (test code = 34 mg/dL >39 L 5-9) VLDL Cholesterol Jose Roberto (test code = 22 mg/dL 5-40 88652-9) LDL Chol Calc (NIH) (test code = 52 mg/dL 0-99 50183-2) Comment: (test code = 73811-0) [facility] Description: Lipid [id number] 03:54:00 Test Item Value Reference Range Interpretation Comments Cholesterol, Total (test code = 108 mg/dL 450-674 6941-3) Triglycerides (test code = 2571-8) 118 mg/dL 0-149 HDL Cholesterol (test code = 34 mg/dL >39 L 2085-9) VLDL Cholesterol Jose Roberto (test code = 22 mg/dL 5-40 84315-9) LDL Chol Calc (NIH) (test code = 52 mg/dL 0-99 28477-0) Comment: (test code = 63246-0) [facility] Description: Lipid [id number] 03:54:00 Test Item Value Reference Range Interpretation Comments Cholesterol, Total (test code = 108 mg/dL 026-258 2164-3) Triglycerides (test code = 2571-8) 118 mg/dL 0-149 HDL Cholesterol (test code = 34 mg/dL >39 L 2085-9) VLDL Cholesterol Jose Roberto (test code = 22 mg/dL 5-40 69876-2) LDL Chol Calc (NIH) (test code = 52 mg/dL 0-99 02998-4) Comment: (test code = 02105-4) [facility] Description: Lipid [id number] 03:54:00 Test Item Value Reference Range Interpretation Comments Cholesterol, Total (test code = 108 mg/dL 165-548 1173-3) Triglycerides (test code = 2571-8) 118 mg/dL 0-149 HDL Cholesterol (test code = 34 mg/dL >39 L 2085-9) VLDL Cholesterol Jose Roberto (test code = 22 mg/dL 5-40 50430-9) LDL Chol Calc (NIH) (test code = 52 mg/dL 0-99 13034-1) Comment: (test code = 41594-7) [facility] Description: Lipid [id number] 03:54:00 Test Item Value Reference Range Interpretation Comments Cholesterol, Total (test code = 108 mg/dL 726-651 4424-3) Triglycerides (test code = 2571-8) 118 mg/dL 0-149 HDL Cholesterol (test code = 34 mg/dL >39 L 2085-9) VLDL Cholesterol Jose Roberto (test code = 22 mg/dL 5-40 75810-3) LDL Chol Calc (NIH) (test code = 52 mg/dL 0-99 41108-8) Comment: (test code = 34062-0) [facility] Description: Lipid [id number] 03:54:00 Test Item Value Reference Range Interpretation Comments Cholesterol, Total (test code = 108 mg/dL 659-162 7120-3) Triglycerides (test code = 2571-8) 118 mg/dL 0-149 HDL Cholesterol (test code = 34 mg/dL >39 L 2085-9) VLDL Cholesterol Jose Roberto (test code = 22 mg/dL 5-40 63536-8) LDL Chol Calc (NIH) (test code = 52 mg/dL 0-99 34908-7) Comment: (test code = 23771-8) [facility] Description: Lipid [id number] 03:54:00 Test Item Value Reference Range Interpretation Comments Cholesterol, Total (test code = 108 mg/dL 007-729 6199-3) Triglycerides (test code = 2571-8) 118 mg/dL 0-149 HDL Cholesterol (test code = 34 mg/dL >39 L 2085-9) VLDL Cholesterol Jose Roberto (test code = 22 mg/dL 5-40 43721-6) LDL Chol Calc (NIH) (test code = 52 mg/dL 0-99 63034-7) Comment: (test code = 58001-5) [facility] Description: Lipid [id number] 03:54:00 Test Item Value Reference Range Interpretation Comments Cholesterol, Total (test code = 108 mg/dL 606-284 3226-3) Triglycerides (test code = 2571-8) 118 mg/dL 0-149 HDL Cholesterol (test code = 34 mg/dL >39 L 2085-9) VLDL Cholesterol Jose Roberto (test code = 22 mg/dL 5-40 80992-1) LDL Chol Calc (NIH) (test code = 52 mg/dL 0-99 30241-3) Comment: (test code = 86100-9) [facility] Description: Comp. Metabolic Panel (14)2021-08-26 03:03:00 Test Item Value Reference Range Interpretation Comments Glucose (test code 78 mg/dL 65-99 = 2345-7) BUN (test code = 11 mg/dL 6-24 3094-0) Creatinine (test 1.01 mg/dL 0.76-1.27 code = 2160-0) eGFR If NonAfricn 85 >59 Am (test code = mL/min/1.73 14252-6) eGFR If Africn Am 98 >59 In accor dance with (test code = mL/min/1.73 recommendations from 57403-1) the NKF-ASN Tas k force, [facility] is in the process of updating its eG FR calculation to the 2020 CKD-EPI creatinine equa tion that estimates kidney function withou t a race variable.
< br/>Per formed by:
[facility] ([place])

BUN/Creatinine 11 9-20 Ratio (test code = 3097-3) Sodium (test code = 142 mmol/L 039-194 9175-2) Potassium (test 4.7 mmol/L 3.5-5.2 code = 2823-3) Chloride (test code 102 mmol/L 96-106 = 5-0) Carbon Dioxide, 22 mmol/L 20-29 Total (test code = 2027-) Calcium (test code 9.8 mg/dL 8.7-10.2 = 97505-3) Protein, Total 7.3 g/dL 6.0-8.5 (test code = 2885-2) Albumin (test code 4.7 g/dL 3.8-4.9 = 1751-7) Globulin, Total 2.6 g/dL 1.5-4.5 (test code = 69379-0) A/G Ratio (test 1.8 1.2-2.2 code = 1759-0) Bilirubin, Total 0.5 mg/dL 0.0-1.2 (test code = 1975-2) Alkaline 83 IU/L 44-121 Please note Phosphatase (test reference interval code = 6768-6) change

Perf ormed by:
[facility] ([place])

AST (SGOT) (test 26 IU/L 0-40 code = 1920-8) ALT (SGPT) (test 27 IU/L 0-44 code = 1742-6) [facility] Description: Comp. Metabolic Panel (14)2021-08-26 03:03:00 Test Item Value Reference Range Interpretation Comments Glucose (test code 78 mg/dL 65-99 = 2345-7) BUN (test code = 11 mg/dL 6-24 3094-0) Creatinine (test 1.01 mg/dL 0.76-1.27 code = 2160-0) eGFR If NonAfricn 85 >59 Am (test code = mL/min/1.73 80210-9) eGFR If Africn Am 98 >59 In accor dance with (test code = mL/min/1.73 recommendations from 23658-8) the NKF-ASN Tas k force, [facility] is in the process of updating its eG FR calculation to the 2020 CKD-EPI creatinine equa tion that estimates kidney function withou t a race variable.
< br/>Per formed by:
[facility] ([place])

BUN/Creatinine 11 9-20 Ratio (test code = 3097-3) Sodium (test code = 142 mmol/L 037-896 5976-2) Potassium (test 4.7 mmol/L 3.5-5.2 code = 2823-3) Chloride (test code 102 mmol/L 96-106 = 2075-0) Carbon Dioxide, 22 mmol/L 20-29 Total (test code = 2027-) Calcium (test code 9.8 mg/dL 8.7-10.2 = 20385-2) Protein, Total 7.3 g/dL 6.0-8.5 (test code = 2885-2) Albumin (test code 4.7 g/dL 3.8-4.9 = 1751-7) Globulin, Total 2.6 g/dL 1.5-4.5 (test code = 62886-5) A/G Ratio (test 1.8 1.2-2.2 code = 1759-0) Bilirubin, Total 0.5 mg/dL 0.0-1.2 (test code = 1975-2) Alkaline 83 IU/L 44-121 Please note Phosphatase (test reference interval code = 6768-6) change

Perf ormed by:
[facility] ([place])

AST (SGOT) (test 26 IU/L 0-40 code = 1920-8) ALT (SGPT) (test 27 IU/L 0-44 code = 1742-6) [facility] Description: Comp. Metabolic Panel (14)2021-08-26 03:03:00 Test Item Value Reference Range Interpretation Comments Glucose (test code 78 mg/dL 65-99 = 2345-7) BUN (test code = 11 mg/dL 6-24 3094-0) Creatinine (test 1.01 mg/dL 0.76-1.27 code = 2160-0) eGFR If NonAfricn 85 >59 Am (test code = mL/min/1.73 12597-2) eGFR If Africn Am 98 >59 In accor dance with (test code = mL/min/1.73 recommendations from 09956-2) the NKF-ASN Tas k force, [facility] is in the process of updating its eG FR calculation to the 2020 CKD-EPI creatinine equa tion that estimates kidney function withou t a race variable.
< br/>Per formed by:
[facility] ([place])

BUN/Creatinine 11 9-20 Ratio (test code = 3097-3) Sodium (test code = 142 mmol/L 596-840 5535-2) Potassium (test 4.7 mmol/L 3.5-5.2 code = 2823-3) Chloride (test code 102 mmol/L 96-106 = 5-0) Carbon Dioxide, 22 mmol/L 20-29 Total (test code = 2027-) Calcium (test code 9.8 mg/dL 8.7-10.2 = 78119-3) Protein, Total 7.3 g/dL 6.0-8.5 (test code = 2885-2) Albumin (test code 4.7 g/dL 3.8-4.9 = 1751-7) Globulin, Total 2.6 g/dL 1.5-4.5 (test code = 76842-3) A/G Ratio (test 1.8 1.2-2.2 code = 1759-0) Bilirubin, Total 0.5 mg/dL 0.0-1.2 (test code = 1974-) Alkaline 83 IU/L 44-121 Please note Phosphatase (test reference interval code = 6768-6) change

Perf ormed by:
[facility] ([place])

AST (SGOT) (test 26 IU/L 0-40 code = 1920-8) ALT (SGPT) (test 27 IU/L 0-44 code = 1742-6) [facility] Description: Comp. Metabolic Panel (14)2021-08-26 03:03:00 Test Item Value Reference Range Interpretation Comments Glucose (test code 78 mg/dL 65-99 = 2345-7) BUN (test code = 11 mg/dL 6-24 3094-0) Creatinine (test 1.01 mg/dL 0.76-1.27 code = 2160-0) eGFR If NonAfricn 85 >59 Am (test code = mL/min/1.73 12979-0) eGFR If Africn Am 98 >59 In accor dance with (test code = mL/min/1.73 recommendations from 19456-6) the NKF-ASN Tas k force, [facility] is in the process of updating its eG FR calculation to the 2020 CKD-EPI creatinine equa tion that estimates kidney function withou t a race variable.
< br/>Per formed by:
[facility] ([place])

BUN/Creatinine 11 9-20 Ratio (test code = 3097-3) Sodium (test code = 142 mmol/L 829-551 1847-2) Potassium (test 4.7 mmol/L 3.5-5.2 code = 2823-3) Chloride (test code 102 mmol/L 96-106 = 2075-0) Carbon Dioxide, 22 mmol/L 20-29 Total (test code = 2027-) Calcium (test code 9.8 mg/dL 8.7-10.2 = 79118-0) Protein, Total 7.3 g/dL 6.0-8.5 (test code = 2885-2) Albumin (test code 4.7 g/dL 3.8-4.9 = 1751-7) Globulin, Total 2.6 g/dL 1.5-4.5 (test code = 91523-5) A/G Ratio (test 1.8 1.2-2.2 code = 1759-0) Bilirubin, Total 0.5 mg/dL 0.0-1.2 (test code = 1975-2) Alkaline 83 IU/L 44-121 Please note Phosphatase (test reference interval code = 6768-6) change

Perf ormed by:
[facility] ([place])

AST (SGOT) (test 26 IU/L 0-40 code = 1920-8) ALT (SGPT) (test 27 IU/L 0-44 code = 1742-6) [facility] Description: Comp. Metabolic Panel (14)2021-08-26 03:03:00 Test Item Value Reference Range Interpretation Comments Glucose (test code 78 mg/dL 65-99 = 2345-7) BUN (test code = 11 mg/dL 6-24 3094-0) Creatinine (test 1.01 mg/dL 0.76-1.27 code = 2160-0) eGFR If NonAfricn 85 >59 Am (test code = mL/min/1.73 20224-1) eGFR If Africn Am 98 >59 In accor dance with (test code = mL/min/1.73 recommendations from 74004-6) the NKF-ASN Tas k force, [facility] is in the process of updating its eG FR calculation to the 2020 CKD-EPI creatinine equa tion that estimates kidney function withou t a race variable.
< br/>Per formed by:
[facility] ([place])

BUN/Creatinine 11 9-20 Ratio (test code = 3097-3) Sodium (test code = 142 mmol/L 593-056 7287-2) Potassium (test 4.7 mmol/L 3.5-5.2 code = 2823-3) Chloride (test code 102 mmol/L 96-106 = 2075-0) Carbon Dioxide, 22 mmol/L 20-29 Total (test code = 2027-) Calcium (test code 9.8 mg/dL 8.7-10.2 = 02137-8) Protein, Total 7.3 g/dL 6.0-8.5 (test code = 2885-2) Albumin (test code 4.7 g/dL 3.8-4.9 = 1751-7) Globulin, Total 2.6 g/dL 1.5-4.5 (test code = 65287-0) A/G Ratio (test 1.8 1.2-2.2 code = 1759-0) Bilirubin, Total 0.5 mg/dL 0.0-1.2 (test code = 1974-2) Alkaline 83 IU/L 44-121 Please note Phosphatase (test reference interval code = 6768-6) change

Perf ormed by:
[facility] ([place])

AST (SGOT) (test 26 IU/L 0-40 code = 1920-8) ALT (SGPT) (test 27 IU/L 0-44 code = 1742-6) [facility] Description: Comp. Metabolic Panel (14)2021-08-26 03:03:00 Test Item Value Reference Range Interpretation Comments Glucose (test code 78 mg/dL 65-99 = 2345-7) BUN (test code = 11 mg/dL 6-24 3094-0) Creatinine (test 1.01 mg/dL 0.76-1.27 code = 2160-0) eGFR If NonAfricn 85 >59 Am (test code = mL/min/1.73 39755-7) eGFR If Africn Am 98 >59 In accor dance with (test code = mL/min/1.73 recommendations from 06600-4) the NKF-ASN Tas k force, [facility] is in the process of updating its eG FR calculation to the 2020 CKD-EPI creatinine equa tion that estimates kidney function withou t a race variable.
< br/>Per formed by:
[facility] ([place])

BUN/Creatinine 11 9-20 Ratio (test code = 3097-3) Sodium (test code = 142 mmol/L 510-681 4707-2) Potassium (test 4.7 mmol/L 3.5-5.2 code = 2823-3) Chloride (test code 102 mmol/L 96-106 = 2075-0) Carbon Dioxide, 22 mmol/L 20-29 Total (test code = 2027-) Calcium (test code 9.8 mg/dL 8.7-10.2 = 45291-0) Protein, Total 7.3 g/dL 6.0-8.5 (test code = 2885-2) Albumin (test code 4.7 g/dL 3.8-4.9 = 1751-7) Globulin, Total 2.6 g/dL 1.5-4.5 (test code = 20844-5) A/G Ratio (test 1.8 1.2-2.2 code = 1759-0) Bilirubin, Total 0.5 mg/dL 0.0-1.2 (test code = 1975-2) Alkaline 83 IU/L 44-121 Please note Phosphatase (test reference interval code = 6768-6) change

Perf ormed by:
[facility] ([place])

AST (SGOT) (test 26 IU/L 0-40 code = 1920-8) ALT (SGPT) (test 27 IU/L 0-44 code = 1742-6) [facility] Description: Comp. Metabolic Panel (14)2021-08-26 03:03:00 Test Item Value Reference Range Interpretation Comments Glucose (test code 78 mg/dL 65-99 = 2345-7) BUN (test code = 11 mg/dL 6-24 3094-0) Creatinine (test 1.01 mg/dL 0.76-1.27 code = 2160-0) eGFR If NonAfricn 85 >59 Am (test code = mL/min/1.73 32443-7) eGFR If Africn Am 98 >59 In accor dance with (test code = mL/min/1.73 recommendations from 16655-0) the NKF-ASN Tas [facility] force, [facility] is in the process of updating its eG FR calculation to the 2020 CKD-EPI creatinine equa tion that estimates kidney function withou t a race variable.
< br/>Per formed by:
[facility] ([place])

BUN/Creatinine 11 9-20 Ratio (test code = 3097-3) Sodium (test code = 142 mmol/L 521-122 0065-2) Potassium (test 4.7 mmol/L 3.5-5.2 code = 2823-3) Chloride (test code 102 mmol/L 96-106 = 2075-0) Carbon Dioxide, 22 mmol/L 20-29 Total (test code = 2027-) Calcium (test code 9.8 mg/dL 8.7-10.2 = 56425-9) Protein, Total 7.3 g/dL 6.0-8.5 (test code = 2885-2) Albumin (test code 4.7 g/dL 3.8-4.9 = 1751-7) Globulin, Total 2.6 g/dL 1.5-4.5 (test code = 00081-8) A/G Ratio (test 1.8 1.2-2.2 code = 1759-0) Bilirubin, Total 0.5 mg/dL 0.0-1.2 (test code = 1975-2) Alkaline 83 IU/L 44-121 Please note Phosphatase (test reference interval code = 6768-6) change

Perf ormed by:
[facility] ([place])

AST (SGOT) (test 26 IU/L 0-40 code = 1920-8) ALT (SGPT) (test 27 IU/L 0-44 code = 1742-6) [facility] Description: Comp. Metabolic Panel (14)2021-08-26 03:03:00 Test Item Value Reference Range Interpretation Comments Glucose (test code 78 mg/dL 65-99 = 2345-7) BUN (test code = 11 mg/dL 6-24 3094-0) Creatinine (test 1.01 mg/dL 0.76-1.27 code = 2160-0) eGFR If NonAfricn 85 >59 Am (test code = mL/min/1.73 40285-8) eGFR If Africn Am 98 >59 In accor dance with (test code = mL/min/1.73 recommendations from 32127-1) the NKF-ASN [employer] force, Heri roche is in the process of updating its eG FR calculation to the 2020 CKD-EPI creatinine equa tion that estimates kidney function withou t a race variable.Perfor med by:[facility] ([facility]) BUN/Creatinine 11 9-20 Ratio (test code = 3097-3) Sodium (test code = 142 mmol/L 935-155 0727-2) Potassium (test 4.7 mmol/L 3.5-5.2 code = 2823-3) Chloride (test code 102 mmol/L 96-106 = 2075-0) Carbon Dioxide, 22 mmol/L 20-29 Total (test code = 2027-) Calcium (test code 9.8 mg/dL 8.7-10.2 = 27569-9) Protein, Total 7.3 g/dL 6.0-8.5 (test code = 2885-2) Albumin (test code 4.7 g/dL 3.8-4.9 = 1751-7) Globulin, Total 2.6 g/dL 1.5-4.5 (test code = 90002-8) A/G Ratio (test 1.8 1.2-2.2 code = 1759-0) Bilirubin, Total 0.5 mg/dL 0.0-1.2 (test code = 1975-2) Alkaline 83 IU/L 44-121 Please note Phosphatase (test reference interval code = 6768-6) changePerfo rmed by:[facility] ([facility]) AST (SGOT) (test 26 IU/L 0-40 code = 1920-8) ALT (SGPT) (test 27 IU/L 0-44 code = 1742-6) [facility] Description: Comp. Metabolic Panel (14)2021-08-26 03:03:00 Test Item Value Reference Range Interpretation Comments Glucose (test code 78 mg/dL 65-99 = 2345-7) BUN (test code = 11 mg/dL 6-24 3094-0) Creatinine (test 1.01 mg/dL 0.76-1.27 code = 2160-0) eGFR If NonAfricn 85 >59 Am (test code = mL/min/1.73 82011-0) eGFR If Africn Am 98 >59 In accor dance with (test code = mL/min/1.73 recommendations from 70606-2) the NKF-ASN Tas [employer] force, [facility] is in the process of updating its eG FR calculation to the 2020 CKD-EPI creatinine equa tion that estimates kidney function withou t a race variable.Perfor med by:[facility] ([facility]) BUN/Creatinine 11 9-20 Ratio (test code = 3097-3) Sodium (test code = 142 mmol/L 414-841 1024-2) Potassium (test 4.7 mmol/L 3.5-5.2 code = 2823-3) Chloride (test code 102 mmol/L 96-106 = 2075-0) Carbon Dioxide, 22 mmol/L 20-29 Total (test code = 2027-) Calcium (test code 9.8 mg/dL 8.7-10.2 = 99571-6) Protein, Total 7.3 g/dL 6.0-8.5 (test code = 2885-2) Albumin (test code 4.7 g/dL 3.8-4.9 = 1751-7) Globulin, Total 2.6 g/dL 1.5-4.5 (test code = 17752-6) A/G Ratio (test 1.8 1.2-2.2 code = 1759-0) Bilirubin, Total 0.5 mg/dL 0.0-1.2 (test code = 1975-2) Alkaline 83 IU/L 44-121 Please note Phosphatase (test reference interval code = 6768-6) changePerfo rmed by:[facility] ([facility]) AST (SGOT) (test 26 IU/L 0-40 code = 1920-8) ALT (SGPT) (test 27 IU/L 0-44 code = 1742-6) [facility] Description: Comp. Metabolic Panel (14)2021-08-26 03:03:00 Test Item Value Reference Range Interpretation Comments Glucose (test code 78 mg/dL 65-99 = 2345-7) BUN (test code = 11 mg/dL 6-24 3094-0) Creatinine (test 1.01 mg/dL 0.76-1.27 code = 2160-0) eGFR If NonAfricn 85 >59 Am (test code = mL/min/1.73 62307-2) eGFR If Africn Am 98 >59 In accor dance with (test code = mL/min/1.73 recommendations from 44975-0) the NKF-ASN Tas [employer] force, Heri roche is in the process of updating its eG FR calculation to the 2020 CKD-EPI creatinine equa tion that estimates kidney function withou t a race variable.Perfor med by:[facility] ([facility]) BUN/Creatinine 11 9-20 Ratio (test code = 3097-3) Sodium (test code = 142 mmol/L 880-130 6046-2) Potassium (test 4.7 mmol/L 3.5-5.2 code = 2823-3) Chloride (test code 102 mmol/L 96-106 = 2075-0) Carbon Dioxide, 22 mmol/L 20-29 Total (test code = 2027-9) Calcium (test code 9.8 mg/dL 8.7-10.2 = 27153-9) Protein, Total 7.3 g/dL 6.0-8.5 (test code = 2885-2) Albumin (test code 4.7 g/dL 3.8-4.9 = 1751-7) Globulin, Total 2.6 g/dL 1.5-4.5 (test code = 72602-9) A/G Ratio (test 1.8 1.2-2.2 code = 1759-0) Bilirubin, Total 0.5 mg/dL 0.0-1.2 (test code = 1975-2) Alkaline 83 IU/L 44-121 Please note Phosphatase (test reference interval code = 6768-6) changePerfo rmed by:[facility] ([facility]) AST (SGOT) (test 26 IU/L 0-40 code = 1920-8) ALT (SGPT) (test 27 IU/L 0-44 code = 1742-6) [facility] Description: Comp. Metabolic Panel (14)2021-08-26 03:03:00 Test Item Value Reference Range Interpretation Comments Glucose (test code 78 mg/dL 65-99 = 2345-7) BUN (test code = 11 mg/dL 6-24 3094-0) Creatinine (test 1.01 mg/dL 0.76-1.27 code = 2160-0) eGFR If NonAfricn 85 >59 Am (test code = mL/min/1.73 03429-1) eGFR If Africn Am 98 >59 In accor dance with (test code = mL/min/1.73 recommendations from 83283-2) the NKF-ASN Tas [employer] force, [facility] is in the process of updating its eG FR calculation to the 2020 CKD-EPI creatinine equa tion that estimates kidney function withou t a race variable.Perfor med by:[facility] ([facility]) BUN/Creatinine 11 9-20 Ratio (test code = 3097-3) Sodium (test code = 142 mmol/L 756-249 5394-2) Potassium (test 4.7 mmol/L 3.5-5.2 code = 2823-3) Chloride (test code 102 mmol/L 96-106 = 2075-0) Carbon Dioxide, 22 mmol/L 20-29 Total (test code = 2027-9) Calcium (test code 9.8 mg/dL 8.7-10.2 = 43512-8) Protein, Total 7.3 g/dL 6.0-8.5 (test code = 2885-2) Albumin (test code 4.7 g/dL 3.8-4.9 = 1751-7) Globulin, Total 2.6 g/dL 1.5-4.5 (test code = 41762-4) A/G Ratio (test 1.8 1.2-2.2 code = 1759-0) Bilirubin, Total 0.5 mg/dL 0.0-1.2 (test code = 1975-2) Alkaline 83 IU/L 44-121 Please note Phosphatase (test reference interval code = 6768-6) changePerfo rmed by:[facility] ([facility]) AST (SGOT) (test 26 IU/L 0-40 code = 1920-8) ALT (SGPT) (test 27 IU/L 0-44 code = 1742-6) [facility] Description: Comp. Metabolic Panel (14)2021-08-26 03:03:00 Test Item Value Reference Range Interpretation Comments Glucose (test code 78 mg/dL 65-99 = 2345-7) BUN (test code = 11 mg/dL 6-24 3094-0) Creatinine (test 1.01 mg/dL 0.76-1.27 code = 2160-0) eGFR If NonAfricn 85 >59 Am (test code = mL/min/1.73 43978-9) eGFR If Africn Am 98 >59 In accor dance with (test code = mL/min/1.73 recommendations from 65036-0) the NKF-ASN Tas [employer] force, [facility] is in the process of updating its eG FR calculation to the 2020 CKD-EPI creatinine equa tion that estimates kidney function withou t a race variable.Perfor med by:[facility] ([facility]) BUN/Creatinine 11 9-20 Ratio (test code = 3097-3) Sodium (test code = 142 mmol/L 786-021 9504-2) Potassium (test 4.7 mmol/L 3.5-5.2 code = 2823-3) Chloride (test code 102 mmol/L 96-106 = 2075-0) Carbon Dioxide, 22 mmol/L 20-29 Total (test code = 2027-) Calcium (test code 9.8 mg/dL 8.7-10.2 = 10396-1) Protein, Total 7.3 g/dL 6.0-8.5 (test code = 2885-2) Albumin (test code 4.7 g/dL 3.8-4.9 = 1751-7) Globulin, Total 2.6 g/dL 1.5-4.5 (test code = 93549-0) A/G Ratio (test 1.8 1.2-2.2 code = 1759-0) Bilirubin, Total 0.5 mg/dL 0.0-1.2 (test code = 1975-2) Alkaline 83 IU/L 44-121 Please note Phosphatase (test reference interval code = 6768-6) changePerfo rmed by:[facility] ([facility]) AST (SGOT) (test 26 IU/L 0-40 code = 1920-8) ALT (SGPT) (test 27 IU/L 0-44 code = 1742-6) [facility] Description: Comp. Metabolic Panel (14)2021-08-26 03:03:00 Test Item Value Reference Range Interpretation Comments Glucose (test code 78 mg/dL 65-99 = 2345-7) BUN (test code = 11 mg/dL 6-24 3094-0) Creatinine (test 1.01 mg/dL 0.76-1.27 code = 2160-0) eGFR If NonAfricn 85 >59 Am (test code = mL/min/1.73 83835-6) eGFR If Africn Am 98 >59 In accor dance with (test code = mL/min/1.73 recommendations from 01308-1) the NKF-ASN Tas [employer] force, [facility] is in the process of updating its eG FR calculation to the 2020 CKD-EPI creatinine equa tion that estimates kidney function withou t a race variable.Perfor med by:[facility] ([facility]) BUN/Creatinine 11 9-20 Ratio (test code = 3097-3) Sodium (test code = 142 mmol/L 968-574 5829-2) Potassium (test 4.7 mmol/L 3.5-5.2 code = 2823-3) Chloride (test code 102 mmol/L 96-106 = 2075-0) Carbon Dioxide, 22 mmol/L 20-29 Total (test code = 2027-) Calcium (test code 9.8 mg/dL 8.7-10.2 = 77662-4) Protein, Total 7.3 g/dL 6.0-8.5 (test code = 2885-2) Albumin (test code 4.7 g/dL 3.8-4.9 = 1751-7) Globulin, Total 2.6 g/dL 1.5-4.5 (test code = 16908-3) A/G Ratio (test 1.8 1.2-2.2 code = 1759-0) Bilirubin, Total 0.5 mg/dL 0.0-1.2 (test code = 1975-2) Alkaline 83 IU/L 44-121 Please note Phosphatase (test reference interval code = 6768-6) changePerfo rmed by:[facility] ([facility]) AST (SGOT) (test 26 IU/L 0-40 code = 1920-8) ALT (SGPT) (test 27 IU/L 0-44 code = 1742-6) [facility] Description: Comp. Metabolic Panel (14)2021-08-26 03:03:00 Test Item Value Reference Range Interpretation Comments Glucose (test code 78 mg/dL 65-99 = 2345-7) BUN (test code = 11 mg/dL 6-24 3094-0) Creatinine (test 1.01 mg/dL 0.76-1.27 code = 2160-0) eGFR If NonAfricn 85 >59 Am (test code = mL/min/1.73 05168-0) eGFR If Africn Am 98 >59 In accor dance with (test code = mL/min/1.73 recommendations from 61843-6) the NKF-ASN Tas [employer] force, [facility] is in the process of updating its eG FR calculation to the 2020 CKD-EPI creatinine equa tion that estimates kidney function withou t a race variable.Perfor med by:[facility] ([facility]) BUN/Creatinine 11 9-20 Ratio (test code = 3097-3) Sodium (test code = 142 mmol/L 328-465 3338-2) Potassium (test 4.7 mmol/L 3.5-5.2 code = 2823-3) Chloride (test code 102 mmol/L 96-106 = 2075-0) Carbon Dioxide, 22 mmol/L 20-29 Total (test code = 2027-) Calcium (test code 9.8 mg/dL 8.7-10.2 = 10700-2) Protein, Total 7.3 g/dL 6.0-8.5 (test code = 2885-2) Albumin (test code 4.7 g/dL 3.8-4.9 = 1751-7) Globulin, Total 2.6 g/dL 1.5-4.5 (test code = 75418-3) A/G Ratio (test 1.8 1.2-2.2 code = 1759-0) Bilirubin, Total 0.5 mg/dL 0.0-1.2 (test code = 1975-2) Alkaline 83 IU/L 44-121 Please note Phosphatase (test reference interval code = 6768-6) changePerfo rmed by:[facility] ([facility]) AST (SGOT) (test 26 IU/L 0-40 code = 1920-8) ALT (SGPT) (test 27 IU/L 0-44 code = 1742-6) [facility] Description: Comp. Metabolic Panel (14)2021-08-26 03:03:00 Test Item Value Reference Range Interpretation Comments Glucose (test code 78 mg/dL 65-99 = 2345-7) BUN (test code = 11 mg/dL 6-24 3094-0) Creatinine (test 1.01 mg/dL 0.76-1.27 code = 2160-0) eGFR If NonAfricn 85 >59 Am (test code = mL/min/1.73 84849-0) eGFR If Africn Am 98 >59 In accor dance with (test code = mL/min/1.73 recommendations from 60072-5) the NKF-ASN Tas [employer] force, [facility] is in the process of updating its eG FR calculation to the 2020 CKD-EPI creatinine equa tion that estimates kidney function withou t a race variable.Perfor med by:[facility] ([facility]) BUN/Creatinine 11 9-20 Ratio (test code = 3097-3) Sodium (test code = 142 mmol/L 176-306 0613-2) Potassium (test 4.7 mmol/L 3.5-5.2 code = 2823-3) Chloride (test code 102 mmol/L 96-106 = 2075-0) Carbon Dioxide, 22 mmol/L 20-29 Total (test code = 2027-) Calcium (test code 9.8 mg/dL 8.7-10.2 = 22136-8) Protein, Total 7.3 g/dL 6.0-8.5 (test code = 2885-2) Albumin (test code 4.7 g/dL 3.8-4.9 = 1751-7) Globulin, Total 2.6 g/dL 1.5-4.5 (test code = 79572-4) A/G Ratio (test 1.8 1.2-2.2 code = 1759-0) Bilirubin, Total 0.5 mg/dL 0.0-1.2 (test code = 1975-2) Alkaline 83 IU/L 44-121 Please note Phosphatase (test reference interval code = 6768-6) changePerfo rmed by:[facility] ([facility]) AST (SGOT) (test 26 IU/L 0-40 code = 1920-8) ALT (SGPT) (test 27 IU/L 0-44 code = 1742-6) [facility] Description: Comp. Metabolic Panel (14)2021-08-26 03:03:00 Test Item Value Reference Range Interpretation Comments Glucose (test code 78 mg/dL 65-99 = 2345-7) BUN (test code = 11 mg/dL 6-24 3094-0) Creatinine (test 1.01 mg/dL 0.76-1.27 code = 2160-0) eGFR If NonAfricn 85 >59 Am (test code = mL/min/1.73 23230-0) eGFR If Africn Am 98 >59 In accor dance with (test code = mL/min/1.73 recommendations from 09548-9) the NKF-ASN Tas k force, Heri roche is in the process of updating its eG FR calculation to the 2020 CKD-EPI creatinine equa tion that estimates kidney function withou t a race variable.Perfor med by:[facility] ([facility]) BUN/Creatinine 11 9-20 Ratio (test code = 3097-3) Sodium (test code = 142 mmol/L 740-561 5557-2) Potassium (test 4.7 mmol/L 3.5-5.2 code = 2823-3) Chloride (test code 102 mmol/L 96-106 = 2075-0) Carbon Dioxide, 22 mmol/L 20-29 Total (test code = 2027-) Calcium (test code 9.8 mg/dL 8.7-10.2 = 10982-8) Protein, Total 7.3 g/dL 6.0-8.5 (test code = 2885-2) Albumin (test code 4.7 g/dL 3.8-4.9 = 1751-7) Globulin, Total 2.6 g/dL 1.5-4.5 (test code = 12556-8) A/G Ratio (test 1.8 1.2-2.2 code = 1759-0) Bilirubin, Total 0.5 mg/dL 0.0-1.2 (test code = 1975-2) Alkaline 83 IU/L 44-121 Please note Phosphatase (test reference interval code = 6768-6) changePerfo rmed by:Chet martinez (HD) AST (SGOT) (test 26 IU/L 0-40 code = 1920-8) ALT (SGPT) (test 27 IU/L 0-44 code = 1742-6) [facility] Description: Comp. Metabolic Panel (14)2021-08-26 03:03:00 Test Item Value Reference Range Interpretation Comments Glucose (test code 78 mg/dL 65-99 = 2345-7) BUN (test code = 11 mg/dL 6-24 3094-0) Creatinine (test 1.01 mg/dL 0.76-1.27 code = 2160-0) eGFR If NonAfricn 85 >59 Am (test code = mL/min/1.73 45347-8) eGFR If Africn Am 98 >59 In accor dance with (test code = mL/min/1.73 recommendations from 75727-7) the NKF-ASN Tas k force, Heri roche is in the process of updating its eG FR calculation to the 2020 CKD-EPI creatinine equa tion that estimates kidney function withou t a race variable.
< br/>Per formed by:
C[facility]illa ([facility])

BUN/Creatinine 11 9-20 Ratio (test code = 3097-3) Sodium (test code = 142 mmol/L 870-680 5288-2) Potassium (test 4.7 mmol/L 3.5-5.2 code = 2823-3) Chloride (test code 102 mmol/L 96-106 = 2075-0) Carbon Dioxide, 22 mmol/L 20-29 Total (test code = 2027-) Calcium (test code 9.8 mg/dL 8.7-10.2 = 89160-7) Protein, Total 7.3 g/dL 6.0-8.5 (test code = 2885-2) Albumin (test code 4.7 g/dL 3.8-4.9 = 1751-7) Globulin, Total 2.6 g/dL 1.5-4.5 (test code = 45962-5) A/G Ratio (test 1.8 1.2-2.2 code = 1759-0) Bilirubin, Total 0.5 mg/dL 0.0-1.2 (test code = 1975-2) Alkaline 83 IU/L 44-121 Please note Phosphatase (test reference interval code = 6768-6) change

Perf ormed by:
L Shilpa [facility] ([facility])

AST (SGOT) (test 26 IU/L 0-40 code = 1920-8) ALT (SGPT) (test 27 IU/L 0-44 code = 1742-6) [facility]: Albumin/Creatinine Ratio,[id number] 14:07:00 Test Item Value Reference Range Interpretation Comments Creatinine, Urine 254.1 mg/dL Not Estab. (test code = 2161-8) Albumin, Urine 9.5 ug/mL Not Estab. (test code = 20225-3) Alb/Creat Ratio 4 mg/gcreat 0-29 Normal: 0 - 29 (test code = Moderately incr eased: 9318-7) 30 - 300 Severe ly increased: >300

P erformed by:
[facility] ([facility])

[facility] Description: Albumin/Creatinine Ratio,[id number] 14:07:00 Test Item Value Reference Range Interpretation Comments Creatinine, Urine 254.1 mg/dL Not Estab. (test code = 2161-8) Albumin, Urine 9.5 ug/mL Not Estab. (test code = 32335-8) Alb/Creat Ratio 4 mg/gcreat 0-29 Normal: 0 - 29 (test code = Moderately incr eased: 9318-7) 30 - 300 Sever flor increased: >300

P erformed by:
[facility] ([facility])

[facility] Description: Albumin/Creatinine Ratio,[id number] 14:07:00 Test Item Value Reference Range Interpretation Comments Creatinine, Urine 254.1 mg/dL Not Estab. (test code = 2161-8) Albumin, Urine 9.5 ug/mL Not Estab. (test code = 90371-7) Alb/Creat Ratio 4 mg/gcreat 0-29 Normal: 0 - 29 (test code = Moderately incr eased: 9318-7) 30 - 300 Severe ly increased: >300

P erformed by:
[facility] ([facility])

[facility] Description: Albumin/Creatinine Ratio,[id number] 14:07:00 Test Item Value Reference Range Interpretation Comments Creatinine, Urine 254.1 mg/dL Not Estab. (test code = 2161-8) Albumin, Urine 9.5 ug/mL Not Estab. (test code = 89275-3) Alb/Creat Ratio 4 mg/gcreat 0-29 Normal: 0 - 29 (test code = Moderately incr eased: 9318-7) 30 - 300 Severe ly increased: >300

P erformed by:
[facility] ()

[facility] Description: Albumin/Creatinine Ratio,[id number] 14:07:00 Test Item Value Reference Range Interpretation Comments Creatinine, Urine 254.1 mg/dL Not Estab. (test code = 2161-8) Albumin, Urine 9.5 ug/mL Not Estab. (test code = 38124-2) Alb/Creat Ratio 4 mg/gcreat 0-29 Normal: 0 - 29 (test code = Moderately incr eased: 9318-7) 30 - 300 Sever flor increased: >300

P erformed by:
[facility] ([facility])

[facility] Description: Albumin/Creatinine Ratio,[id number] 14:07:00 Test Item Value Reference Range Interpretation Comments Creatinine, Urine 254.1 mg/dL Not Estab. (test code = 2161-8) Albumin, Urine 9.5 ug/mL Not Estab. (test code = 10070-4) Alb/Creat Ratio 4 mg/gcreat 0-29 Normal: 0 - 29 (test code = Moderately incr eased: 9318-7) 30 - 300 Severe ly increased: >300

P erformed by:
[facility] ([facility])

[facility] Description: Albumin/Creatinine Ratio,[id number] 14:07:00 Test Item Value Reference Range Interpretation Comments Creatinine, Urine 254.1 mg/dL Not Estab. (test code = 2161-8) Albumin, Urine 9.5 ug/mL Not Estab. (test code = 24884-2) Alb/Creat Ratio 4 mg/gcreat 0-29 Normal: 0 - 29 (test code = Moderately incr eased: 9318-7) 30 - 300 Severe ly increased: >300

P erformed by:
[facility] ([facility])

[facility] Description: Albumin/Creatinine Ratio,[id number] 14:07:00 Test Item Value Reference Range Interpretation Comments Creatinine, Urine 254.1 mg/dL Not Estab. (test code = 2161-8) Albumin, Urine 9.5 ug/mL Not Estab. (test code = 19976-4) Alb/Creat Ratio 4 mg/gcreat 0-29 Normal: 0 - 29 (test code = Moderately incr eased: 9318-7) 30 - 300 Sever flor increased: >300Performed by:[facility] ([facility]) [facility] Description: Albumin/Creatinine Ratio,[id number] 14:07:00 Test Item Value Reference Range Interpretation Comments Creatinine, Urine 254.1 mg/dL Not Estab. (test code = 2161-8) Albumin, Urine 9.5 ug/mL Not Estab. (test code = 33235-1) Alb/Creat Ratio 4 mg/gcreat 0-29 Normal: 0 - 29 (test code = Moderately incr eased: 9318-7) 30 - 300 Severe ly increased: >300Performed by:[facility] ([facility]) [facility] Description: Albumin/Creatinine Ratio,[id number] 14:07:00 Test Item Value Reference Range Interpretation Comments Creatinine, Urine 254.1 mg/dL Not Estab. (test code = 2161-8) Albumin, Urine 9.5 ug/mL Not Estab. (test code = 19641-9) Alb/Creat Ratio 4 mg/gcreat 0-29 Normal: 0 - 29 (test code = Moderately incr eased: 9318-7) 30 - 300 Severe ly increased: >300Performed by:[facility] ([facility]) [facility] Description: Albumin/Creatinine Ratio,[id number] 14:07:00 Test Item Value Reference Range Interpretation Comments Creatinine, Urine 254.1 mg/dL Not Estab. (test code = 2161-8) Albumin, Urine 9.5 ug/mL Not Estab. (test code = 97038-2) Alb/Creat Ratio 4 mg/gcreat 0-29 Normal: 0 - 29 (test code = Moderately incr eased: 9318-7) 30 - 300 Severe ly increased: >300Performed by:[facility] ([facility]) [facility] Description: Albumin/Creatinine Ratio,[id number] 14:07:00 Test Item Value Reference Range Interpretation Comments Creatinine, Urine 254.1 mg/dL Not Estab. (test code = 2161-8) Albumin, Urine 9.5 ug/mL Not Estab. (test code = 67574-3) Alb/Creat Ratio 4 mg/gcreat 0-29 Normal: 0 - 29 (test code = Moderately incr eased: 9318-7) 30 - 300 Severe ly increased: >300Performed by:[facility] ([facility]) [facility] Description: Albumin/Creatinine Ratio,[id number] 14:07:00 Test Item Value Reference Range Interpretation Comments Creatinine, Urine 254.1 mg/dL Not Estab. (test code = 2161-8) Albumin, Urine 9.5 ug/mL Not Estab. (test code = 29843-6) Alb/Creat Ratio 4 mg/gcreat 0-29 Normal: 0 - 29 (test code = Moderately incr eased: 9318-7) 30 - 300 Severe ly increased: >300Performed by:[facility] ([facility]) [facility] Description: Albumin/Creatinine Ratio,[id number] 14:07:00 Test Item Value Reference Range Interpretation Comments Creatinine, Urine 254.1 mg/dL Not Estab. (test code = 2161-8) Albumin, Urine 9.5 ug/mL Not Estab. (test code = 96590-6) Alb/Creat Ratio 4 mg/gcreat 0-29 Normal: 0 - 29 (test code = Moderately incr eased: 9318-7) 30 - 300 Severe ly increased: >300Performed by:[facility] ([facility]) [facility] Description: Albumin/Creatinine Ratio,[id number] 14:07:00 Test Item Value Reference Range Interpretation Comments Creatinine, Urine 254.1 mg/dL Not Estab. (test code = 2161-8) Albumin, Urine 9.5 ug/mL Not Estab. (test code = 48961-3) Alb/Creat Ratio 4 mg/gcreat 0-29 Normal: 0 - 29 (test code = Moderately incr eased: 9318-7) 30 - 300 Severe ly increased: >300Performed by:[facility] ([facility]) [facility] Description: Albumin/Creatinine Ratio,[id number] 14:07:00 Test Item Value Reference Range Interpretation Comments Creatinine, Urine 254.1 mg/dL Not Estab. (test code = 2161-8) Albumin, Urine 9.5 ug/mL Not Estab. (test code = 21865-1) Alb/Creat Ratio 4 mg/gcreat 0-29 Normal: 0 - 29 (test code = Moderately incr eased: 9318-7) 30 - 300 Severe ly increased: >300Performed by:[facility] ([facility]) [facility] Description: Albumin/Creatinine Ratio,[id number] 14:07:00 Test Item Value Reference Range Interpretation Comments Creatinine, Urine 254.1 mg/dL Not Estab. (test code = 2161-8) Albumin, Urine 9.5 ug/mL Not Estab. (test code = 07394-6) Alb/Creat Ratio 4 mg/gcreat 0-29 Normal: 0 - 29 (test code = Moderately incr eased: 9318-7) 30 - 300 Severe ly increased: >300

P erformed by:
[facility] ([facility])

[facility] Description: Albumin/Creatinine Ratio,[id number] 14:07:00 Test Item Value Reference Range Interpretation Comments Creatinine, Urine 254.1 mg/dL Not Estab. (test code = 2161-8) Albumin, Urine 9.5 ug/mL Not Estab. (test code = 73902-7) Alb/Creat Ratio 4 mg/gcreat 0-29 Normal: 0 - 29 (test code = Moderately incr eased: 9318-7) 30 - 300 Severe ly increased: >300

P erformed by:
[facility] ([facility])

[facility] Description: Albumin/Creatinine Ratio,[id number] 14:07:00 Test Item Value Reference Range Interpretation Comments Creatinine, Urine 254.1 mg/dL Not Estab. (test code = 2161-8) Albumin, Urine 9.5 ug/mL Not Estab. (test code = 39792-9) Alb/Creat Ratio 4 mg/gcreat 0-29 Normal: 0 - 29 (test code = Moderately incr eased: 9318-7) 30 - 300 Severe ly increased: >300

P erformed by:
[facility] ([facility])

[facility] Description: Hemoglobin A1c/Hemoglobin.total in Blood 2021-05-27 13:07:00 Test Item Value Reference Range Interpretation Comments Hemoglobin A1c (test code 6.6 % 4.8-5.6 H . Prediabetes: 5.7 - = 4548-4) 6.4 Diabetes: > 6.4 Glycemic contro l for adults with suzanne betes: <7.0

P erformed by:
[facility] ([place])

[facility] Description: Hemoglobin A1c/Hemoglobin.total in Blood 2021-05-27 13:07:00 Test Item Value Reference Range Interpretation Comments Hemoglobin A1c (test code 6.6 % 4.8-5.6 H . Prediabetes: 5.7 - = 4548-4) 6.4 Diabetes: > 6.4 Glycemic contro l for adults with suzanne betes: <7.0

P erformed by:
[facility] ([place])

[facility] Description: Hemoglobin A1c/Hemoglobin.total in Blood 2021-05-27 13:07:00 Test Item Value Reference Range Interpretation Comments Hemoglobin A1c (test code 6.6 % 4.8-5.6 H . Prediabetes: 5.7 - = 4548-4) 6.4 Diabetes: > 6.4 Glycemic contro l for adults with suzanne betes: <7.0

P erformed by:
[facility] ([place])

[facility] Description: Hemoglobin A1c/Hemoglobin.total in Blood 2021-05-27 13:07:00 Test Item Value Reference Range Interpretation Comments Hemoglobin A1c (test code 6.6 % 4.8-5.6 H . Prediabetes: 5.7 - = 4548-4) 6.4 Diabetes: > 6.4 Glycemic contro l for adults with suzanne betes: <7.0

P erformed by:
[facility] ([place])

[facility] Description: Hemoglobin A1c/Hemoglobin.total in Blood 2021-05-27 13:07:00 Test Item Value Reference Range Interpretation Comments Hemoglobin A1c (test code 6.6 % 4.8-5.6 H . Prediabetes: 5.7 - = 4548-4) 6.4 Diabetes: > 6.4 Glycemic contro l for adults with suzanne betes: <7.0

P erformed by:
[facility] ()

[facility] Description: Hemoglobin A1c/Hemoglobin.total in Blood 2021-05-27 13:07:00 Test Item Value Reference Range Interpretation Comments Hemoglobin A1c (test code 6.6 % 4.8-5.6 H . Prediabetes: 5.7 - = 4548-4) 6.4 Diabetes: > 6.4 Glycemic contro l for adults with suzanne betes: <7.0

P erformed by:
[facility] ([place])

[facility] Description: Hemoglobin A1c/Hemoglobin.total in Blood 2021-05-27 13:07:00 Test Item Value Reference Range Interpretation Comments Hemoglobin A1c (test code 6.6 % 4.8-5.6 H . Prediabetes: 5.7 - = 4548-4) 6.4 Diabetes: > 6.4 Glycemic contro l for adults with suzanne betes: <7.0

P erformed by:
[facility] ([place])

[facility] Description: Hemoglobin A1c/Hemoglobin.total in Blood 2021-05-27 13:07:00 Test Item Value Reference Range Interpretation Comments Hemoglobin A1c (test code 6.6 % 4.8-5.6 H . Prediabetes: 5.7 - = 4548-4) 6.4 Diabetes: > 6.4 Glycemic contro l for adults with suzanne betes: <7.0Performed by:[facility] ([place]) [facility] Description: Hemoglobin A1c/Hemoglobin.total in Blood 2021-05-27 13:07:00 Test Item Value Reference Range Interpretation Comments Hemoglobin A1c (test code 6.6 % 4.8-5.6 H . Prediabetes: 5.7 - = 4548-4) 6.4 Diabetes: > 6.4 Glycemic contro l for adults with suzanne betes: <7.0Performed by:[facility] ([place]) [facility] Description: Hemoglobin A1c/Hemoglobin.total in Blood 2021-05-27 13:07:00 Test Item Value Reference Range Interpretation Comments Hemoglobin A1c (test code 6.6 % 4.8-5.6 H . Prediabetes: 5.7 - = 4548-4) 6.4 Diabetes: > 6.4 Glycemic contro l for adults with suzanne betes: <7.0Performed by:[facility] ([place]) [facility] Description: Hemoglobin A1c/Hemoglobin.total in Blood 2021-05-27 13:07:00 Test Item Value Reference Range Interpretation Comments Hemoglobin A1c (test code 6.6 % 4.8-5.6 H . Prediabetes: 5.7 - = 4548-4) 6.4 Diabetes: > 6.4 Glycemic contro l for adults with suzanne betes: <7.0Performed by:[facility] ([place]) [facility] Description: Hemoglobin A1c/Hemoglobin.total in Blood 2021-05-27 13:07:00 Test Item Value Reference Range Interpretation Comments Hemoglobin A1c (test code 6.6 % 4.8-5.6 H . Prediabetes: 5.7 - = 4548-4) 6.4 Diabetes: > 6.4 Glycemic contro l for adults with suzanne betes: <7.0Performed by:[facility] ([place]) [facility] Description: Hemoglobin A1c/Hemoglobin.total in Blood 2021-05-27 13:07:00 Test Item Value Reference Range Interpretation Comments Hemoglobin A1c (test code 6.6 % 4.8-5.6 H . Prediabetes: 5.7 - = 4548-4) 6.4 Diabetes: > 6.4 Glycemic contro l for adults with suzanne betes: <7.0Performed by:[facility] ([place]) [facility] Description: Hemoglobin A1c/Hemoglobin.total in Blood 2021-05-27 13:07:00 Test Item Value Reference Range Interpretation Comments Hemoglobin A1c (test code 6.6 % 4.8-5.6 H . Prediabetes: 5.7 - = 4548-4) 6.4 Diabetes: > 6.4 Glycemic contro l for adults with suzanne betes: <7.0Performed by:[facility] ([place]) [facility] Description: Hemoglobin A1c/Hemoglobin.total in Blood 2021-05-27 13:07:00 Test Item Value Reference Range Interpretation Comments Hemoglobin A1c (test code 6.6 % 4.8-5.6 H . Prediabetes: 5.7 - = 4548-4) 6.4 Diabetes: > 6.4 Glycemic contro l for adults with suzanne betes: <7.0Performed by:[facility] ([place]) [facility] Description: Hemoglobin A1c/Hemoglobin.total in Blood 2021-05-27 13:07:00 Test Item Value Reference Range Interpretation Comments Hemoglobin A1c (test code 6.6 % 4.8-5.6 H . Prediabetes: 5.7 - = 4548-4) 6.4 Diabetes: > 6.4 Glycemic contro l for adults with suzanne betes: <7.0Performed by:Chet martinez () [facility] Description: Hemoglobin A1c/Hemoglobin.total in Blood 2021-05-27 13:07:00 Test Item Value Reference Range Interpretation Comments Hemoglobin A1c (test code 6.6 % 4.8-5.6 H . Prediabetes: 5.7 - = 4548-4) 6.4 Diabetes: > 6.4 Glycemic contro l for adults with suzanne betes: <7.0

P erformed by:
Chet Montilla ()

[facility] Description: Hemoglobin A1c/Hemoglobin.total in Blood 2021-05-27 13:07:00 Test Item Value Reference Range Interpretation Comments Hemoglobin A1c (test code 6.6 % 4.8-5.6 H . Prediabetes: 5.7 - = 4548-4) 6.4 Diabetes: > 6.4 Glycemic contro l for adults with suzanne betes: <7.0

P erformed by:
Chet [facility]illa ()

[facility] Description: Hemoglobin A1c/Hemoglobin.total in Blood 2021-05-27 13:07:00 Test Item Value Reference Range Interpretation Comments Hemoglobin A1c (test code 6.6 % 4.8-5.6 H . Prediabetes: 5.7 - = 4548-4) 6.4 Diabetes: > 6.4 Glycemic contro l for adults with suzanne betes: <7.0

P erformed by:
Chet Montilla ()

[facility] Description: Lipid [id number] 01:02:00 Test Item Value Reference Range Interpretation Comments Cholesterol, Total (test code = 114 mg/dL 403-340 5075-3) Triglycerides (test code = 2571-8) 187 mg/dL 0-149 H HDL Cholesterol (test code = 30 mg/dL >39 L 2084-9) VLDL Cholesterol Jose Roberto (test code = 31 mg/dL 5-40 16589-8) LDL Chol Calc (NIH) (test code = 53 mg/dL 0-99 02358-1) Comment: (test code = 28506-2) [facility] Description: Lipid [id number] 01:02:00 Test Item Value Reference Range Interpretation Comments Cholesterol, Total (test code = 114 mg/dL 131-659 4940-3) Triglycerides (test code = 2571-8) 187 mg/dL 0-149 H HDL Cholesterol (test code = 30 mg/dL >39 L 2085-9) VLDL Cholesterol Jose Roberto (test code = 31 mg/dL 5-40 40153-0) LDL Chol Calc (NIH) (test code = 53 mg/dL 0-99 31176-0) Comment: (test code = 99631-7) [facility] Description: Lipid [id number] 01:02:00 Test Item Value Reference Range Interpretation Comments Cholesterol, Total (test code = 114 mg/dL 827-418 3474-3) Triglycerides (test code = 2571-8) 187 mg/dL 0-149 H HDL Cholesterol (test code = 30 mg/dL >39 L 2085-9) VLDL Cholesterol Jose Roberto (test code = 31 mg/dL 5-40 42590-6) LDL Chol Calc (NIH) (test code = 53 mg/dL 0-99 60664-4) Comment: (test code = 04465-6) [facility] Description: Lipid [id number] 01:02:00 Test Item Value Reference Range Interpretation Comments Cholesterol, Total (test code = 114 mg/dL 301-489 0194-3) Triglycerides (test code = 2571-8) 187 mg/dL 0-149 H HDL Cholesterol (test code = 30 mg/dL >39 L 2085-9) VLDL Cholesterol Jose Roberto (test code = 31 mg/dL 5-40 16443-7) LDL Chol Calc (NIH) (test code = 53 mg/dL 0-99 57569-3) Comment: (test code = 87228-8) [facility] Description: Lipid [id number] 01:02:00 Test Item Value Reference Range Interpretation Comments Cholesterol, Total (test code = 114 mg/dL 666-146 7147-3) Triglycerides (test code = 2571-8) 187 mg/dL 0-149 H HDL Cholesterol (test code = 30 mg/dL >39 L 2085-9) VLDL Cholesterol Jose Roberto (test code = 31 mg/dL 5-40 52027-2) LDL Chol Calc (NIH) (test code = 53 mg/dL 0-99 35142-6) Comment: (test code = 28907-0) [facility] Description: Lipid [id number] 01:02:00 Test Item Value Reference Range Interpretation Comments Cholesterol, Total (test code = 114 mg/dL 331-531 6605-3) Triglycerides (test code = 2571-8) 187 mg/dL 0-149 H HDL Cholesterol (test code = 30 mg/dL >39 L 2085-9) VLDL Cholesterol Jose Roberto (test code = 31 mg/dL 5-40 17695-1) LDL Chol Calc (NIH) (test code = 53 mg/dL 0-99 93116-7) Comment: (test code = 75514-0) [facility] Description: Lipid [id number] 01:02:00 Test Item Value Reference Range Interpretation Comments Cholesterol, Total (test code = 114 mg/dL 553-782 3501-3) Triglycerides (test code = 2571-8) 187 mg/dL 0-149 H HDL Cholesterol (test code = 30 mg/dL >39 L 2085-9) VLDL Cholesterol Jose Roberto (test code = 31 mg/dL 5-40 32743-5) LDL Chol Calc (NIH) (test code = 53 mg/dL 0-99 95988-0) Comment: (test code = 94440-4) [facility] Description: Lipid [id number] 01:02:00 Test Item Value Reference Range Interpretation Comments Cholesterol, Total (test code = 114 mg/dL 980-981 7586-3) Triglycerides (test code = 2571-8) 187 mg/dL 0-149 H HDL Cholesterol (test code = 30 mg/dL >39 L 2085-9) VLDL Cholesterol Jose Roberto (test code = 31 mg/dL 5-40 81972-4) LDL Chol Calc (NIH) (test code = 53 mg/dL 0-99 29142-7) Comment: (test code = 57985-6) [facility] Description: Lipid [id number] 01:02:00 Test Item Value Reference Range Interpretation Comments Cholesterol, Total (test code = 114 mg/dL 467-789 6868-3) Triglycerides (test code = 2571-8) 187 mg/dL 0-149 H HDL Cholesterol (test code = 30 mg/dL >39 L 2085-9) VLDL Cholesterol Jose Roberto (test code = 31 mg/dL 5-40 49415-7) LDL Chol Calc (NIH) (test code = 53 mg/dL 0-99 54739-6) Comment: (test code = 89368-8) [facility] Description: Lipid [id number] 01:02:00 Test Item Value Reference Range Interpretation Comments Cholesterol, Total (test code = 114 mg/dL 837-655 9285-3) Triglycerides (test code = 2571-8) 187 mg/dL 0-149 H HDL Cholesterol (test code = 30 mg/dL >39 L 5-9) VLDL Cholesterol Jose Roberto (test code = 31 mg/dL 5-40 86690-2) LDL Chol Calc (NIH) (test code = 53 mg/dL 0-99 15609-1) Comment: (test code = 80940-2) [facility] Description: Lipid [id number] 01:02:00 Test Item Value Reference Range Interpretation Comments Cholesterol, Total (test code = 114 mg/dL 133-258 8316-3) Triglycerides (test code = 2571-8) 187 mg/dL 0-149 H HDL Cholesterol (test code = 30 mg/dL >39 L 5-9) VLDL Cholesterol Jose Roberto (test code = 31 mg/dL 5-40 64084-6) LDL Chol Calc (NIH) (test code = 53 mg/dL 0-99 24764-5) Comment: (test code = 03341-7) [facility] Description: Lipid [id number] 01:02:00 Test Item Value Reference Range Interpretation Comments Cholesterol, Total (test code = 114 mg/dL 381-089 1524-3) Triglycerides (test code = 2571-8) 187 mg/dL 0-149 H HDL Cholesterol (test code = 30 mg/dL >39 L 2085-9) VLDL Cholesterol Jose Roberto (test code = 31 mg/dL 5-40 37905-4) LDL Chol Calc (NIH) (test code = 53 mg/dL 0-99 33449-8) Comment: (test code = 56325-0) [facility] Description: Lipid [id number] 01:02:00 Test Item Value Reference Range Interpretation Comments Cholesterol, Total (test code = 114 mg/dL 433-286 7689-3) Triglycerides (test code = 2571-8) 187 mg/dL 0-149 H HDL Cholesterol (test code = 30 mg/dL >39 L 2085-9) VLDL Cholesterol Jose Roberto (test code = 31 mg/dL 5-40 58303-0) LDL Chol Calc (NIH) (test code = 53 mg/dL 0-99 79150-0) Comment: (test code = 61175-7) [facility] Description: Lipid [id number] 01:02:00 Test Item Value Reference Range Interpretation Comments Cholesterol, Total (test code = 114 mg/dL 709-232 6456-3) Triglycerides (test code = 2571-8) 187 mg/dL 0-149 H HDL Cholesterol (test code = 30 mg/dL >39 L 2085-9) VLDL Cholesterol Jose Roberto (test code = 31 mg/dL 5-40 24142-7) LDL Chol Calc (NIH) (test code = 53 mg/dL 0-99 55437-7) Comment: (test code = 25509-5) [facility] Description: Lipid [id number] 01:02:00 Test Item Value Reference Range Interpretation Comments Cholesterol, Total (test code = 114 mg/dL 440-605 2611-3) Triglycerides (test code = 2571-8) 187 mg/dL 0-149 H HDL Cholesterol (test code = 30 mg/dL >39 L 2085-9) VLDL Cholesterol Jose Roberto (test code = 31 mg/dL 5-40 63776-2) LDL Chol Calc (NIH) (test code = 53 mg/dL 0-99 87326-0) Comment: (test code = 16958-0) [facility] Description: Lipid [id number] 01:02:00 Test Item Value Reference Range Interpretation Comments Cholesterol, Total (test code = 114 mg/dL 832-447 3443-3) Triglycerides (test code = 2571-8) 187 mg/dL 0-149 H HDL Cholesterol (test code = 30 mg/dL >39 L 2085-9) VLDL Cholesterol Jose Roberto (test code = 31 mg/dL 5-40 98084-8) LDL Chol Calc (NIH) (test code = 53 mg/dL 0-99 58354-8) Comment: (test code = 23371-5) [facility] Description: Lipid [id number] 01:02:00 Test Item Value Reference Range Interpretation Comments Cholesterol, Total (test code = 114 mg/dL 618-925 5435-3) Triglycerides (test code = 2571-8) 187 mg/dL 0-149 H HDL Cholesterol (test code = 30 mg/dL >39 L 2085-9) VLDL Cholesterol Jose Roberto (test code = 31 mg/dL 5-40 19353-6) LDL Chol Calc (NIH) (test code = 53 mg/dL 0-99 80021-6) Comment: (test code = 92507-8) [facility] Description: Lipid [id number] 01:02:00 Test Item Value Reference Range Interpretation Comments Cholesterol, Total (test code = 114 mg/dL 811-122 2302-3) Triglycerides (test code = 2571-8) 187 mg/dL 0-149 H HDL Cholesterol (test code = 30 mg/dL >39 L 2085-9) VLDL Cholesterol Jose Roberto (test code = 31 mg/dL 5-40 00864-0) LDL Chol Calc (NIH) (test code = 53 mg/dL 0-99 42048-4) Comment: (test code = 78266-3) [facility] Description: Lipid [id number] 01:02:00 Test Item Value Reference Range Interpretation Comments Cholesterol, Total (test code = 114 mg/dL 153-185 0816-3) Triglycerides (test code = 2571-8) 187 mg/dL 0-149 H HDL Cholesterol (test code = 30 mg/dL >39 L 2085-9) VLDL Cholesterol Jose Roberto (test code = 31 mg/dL 5-40 43734-2) LDL Chol Calc (NIH) (test code = 53 mg/dL 0-99 76548-8) Comment: (test code = 78811-0) [facility] Description: Comp. Metabolic Panel (14)2021-05-27 00:51:00 Test Item Value Reference Range Interpretation Comments Glucose (test code 85 mg/dL 65-99 = 2345-7) BUN (test code = 13 mg/dL 6-24 3094-0) Creatinine (test 1.03 mg/dL 0.76-1.27 code = 2160-0) eGFR If NonAfricn 83 >59 Am (test code = mL/min/1.73 74133-6) eGFR If Africn Am 96 >59 In accor dance with (test code = mL/min/1.73 recommendations from 17922-9) the NKF-ASN Tas k force, [facility] is in the process of updating its eG FR calculation to the 2020 CKD-EPI creatinine equa tion that estimates kidney function witho ut a race variable.
< br/>Per formed by:
[facility] ([place])

BUN/Creatinine 13 9-20 Ratio (test code = 3097-3) Sodium (test code = 143 mmol/L 954-665 7341-2) Potassium (test 4.2 mmol/L 3.5-5.2 code = 2823-3) Chloride (test code 106 mmol/L 96-106 = 5-0) Carbon Dioxide, 21 mmol/L 20-29 Total (test code = 2027-9) Calcium (test code 10.0 mg/dL 8.7-10.2 = 54738-0) Protein, Total 7.5 g/dL 6.0-8.5 (test code = 2885-2) Albumin (test code 4.9 g/dL 3.8-4.9 = 1751-7) Globulin, Total 2.6 g/dL 1.5-4.5 (test code = 39119-6) A/G Ratio (test 1.9 1.2-2.2 code = 1759-0) Bilirubin, Total 0.4 mg/dL 0.0-1.2 (test code = 1975-2) Alkaline 90 IU/L 44-121 Please note Phosphatase (test reference interval code = 6768-6) change

Perf ormed by:
[facility] ([place])

AST (SGOT) (test 20 IU/L 0-40 code = 1920-8) ALT (SGPT) (test 23 IU/L 0-44 code = 1742-6) [facility] Description: Comp. Metabolic Panel (14)2021-05-27 00:51:00 Test Item Value Reference Range Interpretation Comments Glucose (test code 85 mg/dL 65-99 = 2345-7) BUN (test code = 13 mg/dL 6-24 3094-0) Creatinine (test 1.03 mg/dL 0.76-1.27 code = 2160-0) eGFR If NonAfricn 83 >59 Am (test code = mL/min/1.73 34142-9) eGFR If Africn Am 96 >59 In accor dance with (test code = mL/min/1.73 recommendations from 48213-1) the NKF-ASN Tas k force, [facility] is in the process of updating its eG FR calculation to the 2020 CKD-EPI creatinine equa tion that estimates kidney function withou t a race variable.
< br/>Per formed by:
[facility] ([place])

BUN/Creatinine 13 9-20 Ratio (test code = 3097-3) Sodium (test code = 143 mmol/L 608-554 7917-2) Potassium (test 4.2 mmol/L 3.5-5.2 code = 2823-3) Chloride (test code 106 mmol/L 96-106 = 2075-0) Carbon Dioxide, 21 mmol/L 20-29 Total (test code = 2027-) Calcium (test code 10.0 mg/dL 8.7-10.2 = 95728-4) Protein, Total 7.5 g/dL 6.0-8.5 (test code = 2885-2) Albumin (test code 4.9 g/dL 3.8-4.9 = 1751-7) Globulin, Total 2.6 g/dL 1.5-4.5 (test code = 33379-1) A/G Ratio (test 1.9 1.2-2.2 code = 1759-0) Bilirubin, Total 0.4 mg/dL 0.0-1.2 (test code = 1975-2) Alkaline 90 IU/L 44-121 Please note Phosphatase (test reference interval code = 6768-6) change

Perf ormed by:
[facility] ([place])

AST (SGOT) (test 20 IU/L 0-40 code = 1920-8) ALT (SGPT) (test 23 IU/L 0-44 code = 1742-6) [facility] Description: Comp. Metabolic Panel (14)2021-05-27 00:51:00 Test Item Value Reference Range Interpretation Comments Glucose (test code 85 mg/dL 65-99 = 2345-7) BUN (test code = 13 mg/dL 6-24 3094-0) Creatinine (test 1.03 mg/dL 0.76-1.27 code = 2160-0) eGFR If NonAfricn 83 >59 Am (test code = mL/min/1.73 56274-7) eGFR If Africn Am 96 >59 In accor dance with (test code = mL/min/1.73 recommendations from 03968-7) the NKF-ASN Tas k force, [facility] is in the process of updating its eG FR calculation to the 2020 CKD-EPI creatinine equa tion that estimates kidney function withou t a race variable.
< br/>Per formed by:
[facility] ([place])

BUN/Creatinine 13 9-20 Ratio (test code = 3097-3) Sodium (test code = 143 mmol/L 750-938 8475-2) Potassium (test 4.2 mmol/L 3.5-5.2 code = 2823-3) Chloride (test code 106 mmol/L 96-106 = 2075-0) Carbon Dioxide, 21 mmol/L 20-29 Total (test code = 2027-) Calcium (test code 10.0 mg/dL 8.7-10.2 = 29948-6) Protein, Total 7.5 g/dL 6.0-8.5 (test code = 2885-2) Albumin (test code 4.9 g/dL 3.8-4.9 = 1751-7) Globulin, Total 2.6 g/dL 1.5-4.5 (test code = 62332-4) A/G Ratio (test 1.9 1.2-2.2 code = 1759-0) Bilirubin, Total 0.4 mg/dL 0.0-1.2 (test code = 1974-2) Alkaline 90 IU/L 44-121 Please note Phosphatase (test reference interval code = 6768-6) change

Perf ormed by:
[facility] ([place])

AST (SGOT) (test 20 IU/L 0-40 code = 1920-8) ALT (SGPT) (test 23 IU/L 0-44 code = 1742-6) [facility] Description: Comp. Metabolic Panel (14)2021-05-27 00:51:00 Test Item Value Reference Range Interpretation Comments Glucose (test code 85 mg/dL 65-99 = 2345-7) BUN (test code = 13 mg/dL 6-24 3094-0) Creatinine (test 1.03 mg/dL 0.76-1.27 code = 2160-0) eGFR If NonAfricn 83 >59 Am (test code = mL/min/1.73 70254-4) eGFR If Africn Am 96 >59 In accor dance with (test code = mL/min/1.73 recommendations from 69394-3) the NKF-ASN Tas k force, [facility] is in the process of updating its eG FR calculation to the 2020 CKD-EPI creatinine equa tion that estimates kidney function withou t a race variable.
< br/>Per formed by:
[facility] ([place])

BUN/Creatinine 13 9-20 Ratio (test code = 3097-3) Sodium (test code = 143 mmol/L 750-200 9197-2) Potassium (test 4.2 mmol/L 3.5-5.2 code = 2823-3) Chloride (test code 106 mmol/L 96-106 = 2075-0) Carbon Dioxide, 21 mmol/L 20-29 Total (test code = 2027-) Calcium (test code 10.0 mg/dL 8.7-10.2 = 53385-3) Protein, Total 7.5 g/dL 6.0-8.5 (test code = 2885-2) Albumin (test code 4.9 g/dL 3.8-4.9 = 1751-7) Globulin, Total 2.6 g/dL 1.5-4.5 (test code = 26524-8) A/G Ratio (test 1.9 1.2-2.2 code = 1759-0) Bilirubin, Total 0.4 mg/dL 0.0-1.2 (test code = 1975-2) Alkaline 90 IU/L 44-121 Please note Phosphatase (test reference interval code = 6768-6) change

Perf ormed by:
[facility] ([place])

AST (SGOT) (test 20 IU/L 0-40 code = 1920-8) ALT (SGPT) (test 23 IU/L 0-44 code = 1742-6) [facility] Description: Comp. Metabolic Panel (14)2021-05-27 00:51:00 Test Item Value Reference Range Interpretation Comments Glucose (test code 85 mg/dL 65-99 = 2345-7) BUN (test code = 13 mg/dL 6-24 3094-0) Creatinine (test 1.03 mg/dL 0.76-1.27 code = 2160-0) eGFR If NonAfricn 83 >59 Am (test code = mL/min/1.73 91070-1) eGFR If Africn Am 96 >59 In accor dance with (test code = mL/min/1.73 recommendations from 26166-9) the NKF-ASN Tas k force, [facility] is in the process of updating its eG FR calculation to the 2020 CKD-EPI creatinine equa tion that estimates kidney function withou t a race variable.
< br/>Per formed by:
[facility] ([place])

BUN/Creatinine 13 9-20 Ratio (test code = 3097-3) Sodium (test code = 143 mmol/L 116-237 4189-2) Potassium (test 4.2 mmol/L 3.5-5.2 code = 2823-3) Chloride (test code 106 mmol/L 96-106 = 5-0) Carbon Dioxide, 21 mmol/L 20-29 Total (test code = 2027-) Calcium (test code 10.0 mg/dL 8.7-10.2 = 21664-0) Protein, Total 7.5 g/dL 6.0-8.5 (test code = 2885-2) Albumin (test code 4.9 g/dL 3.8-4.9 = 1751-7) Globulin, Total 2.6 g/dL 1.5-4.5 (test code = 24438-2) A/G Ratio (test 1.9 1.2-2.2 code = 1759-0) Bilirubin, Total 0.4 mg/dL 0.0-1.2 (test code = 1974-) Alkaline 90 IU/L 44-121 Please note Phosphatase (test reference interval code = 6768-6) change

Perf ormed by:
[facility] ([place])

AST (SGOT) (test 20 IU/L 0-40 code = 1920-8) ALT (SGPT) (test 23 IU/L 0-44 code = 1742-6) [facility] Description: Comp. Metabolic Panel (14)2021-05-27 00:51:00 Test Item Value Reference Range Interpretation Comments Glucose (test code 85 mg/dL 65-99 = 2345-7) BUN (test code = 13 mg/dL 6-24 3094-0) Creatinine (test 1.03 mg/dL 0.76-1.27 code = 2160-0) eGFR If NonAfricn 83 >59 Am (test code = mL/min/1.73 73403-2) eGFR If Africn Am 96 >59 In accor dance with (test code = mL/min/1.73 recommendations from 46910-5) the NKF-ASN Tas k force, [facility] is in the process of updating its eG FR calculation to the 2020 CKD-EPI creatinine equa tion that estimates kidney function withou t a race variable.
< br/>Per formed by:
[facility] ([place])

BUN/Creatinine 13 9-20 Ratio (test code = 3097-3) Sodium (test code = 143 mmol/L 564-501 5061-2) Potassium (test 4.2 mmol/L 3.5-5.2 code = 2823-3) Chloride (test code 106 mmol/L 96-106 = 2075-0) Carbon Dioxide, 21 mmol/L 20-29 Total (test code = 2027-) Calcium (test code 10.0 mg/dL 8.7-10.2 = 56486-6) Protein, Total 7.5 g/dL 6.0-8.5 (test code = 2885-2) Albumin (test code 4.9 g/dL 3.8-4.9 = 1751-7) Globulin, Total 2.6 g/dL 1.5-4.5 (test code = 89161-9) A/G Ratio (test 1.9 1.2-2.2 code = 1759-0) Bilirubin, Total 0.4 mg/dL 0.0-1.2 (test code = 1974-2) Alkaline 90 IU/L 44-121 Please note Phosphatase (test reference interval code = 6768-6) change

Perf ormed by:
[facility] ([place])

AST (SGOT) (test 20 IU/L 0-40 code = 1920-8) ALT (SGPT) (test 23 IU/L 0-44 code = 1742-6) [facility] Description: Comp. Metabolic Panel (14)2021-05-27 00:51:00 Test Item Value Reference Range Interpretation Comments Glucose (test code 85 mg/dL 65-99 = 2345-7) BUN (test code = 13 mg/dL 6-24 3094-0) Creatinine (test 1.03 mg/dL 0.76-1.27 code = 2160-0) eGFR If NonAfricn 83 >59 Am (test code = mL/min/1.73 87920-6) eGFR If Africn Am 96 >59 In accor dance with (test code = mL/min/1.73 recommendations from 52707-5) the NKF-ASN Tas k force, [facility] is in the process of updating its eG FR calculation to the 2020 CKD-EPI creatinine equa tion that estimates kidney function withou t a race variable.
< br/>Per formed by:
[facility] ([place])

BUN/Creatinine 13 9-20 Ratio (test code = 3097-3) Sodium (test code = 143 mmol/L 170-850 1614-2) Potassium (test 4.2 mmol/L 3.5-5.2 code = 2823-3) Chloride (test code 106 mmol/L 96-106 = 2075-0) Carbon Dioxide, 21 mmol/L 20-29 Total (test code = 2027-) Calcium (test code 10.0 mg/dL 8.7-10.2 = 03848-8) Protein, Total 7.5 g/dL 6.0-8.5 (test code = 2885-2) Albumin (test code 4.9 g/dL 3.8-4.9 = 1751-7) Globulin, Total 2.6 g/dL 1.5-4.5 (test code = 78632-0) A/G Ratio (test 1.9 1.2-2.2 code = 1759-0) Bilirubin, Total 0.4 mg/dL 0.0-1.2 (test code = 1975-2) Alkaline 90 IU/L 44-121 Please note Phosphatase (test reference interval code = 6768-6) change

Perf ormed by:
L Shilpa Montilla (HD)

AST (SGOT) (test 20 IU/L 0-40 code = 1920-8) ALT (SGPT) (test 23 IU/L 0-44 code = 1742-6) [facility] Description: Comp. Metabolic Panel (14)2021-05-27 00:51:00 Test Item Value Reference Range Interpretation Comments Glucose (test code 85 mg/dL 65-99 = 2345-7) BUN (test code = 13 mg/dL 6-24 3094-0) Creatinine (test 1.03 mg/dL 0.76-1.27 code = 2160-0) eGFR If NonAfricn 83 >59 Am (test code = mL/min/1.73 90724-3) eGFR If Africn Am 96 >59 In accor dance with (test code = mL/min/1.73 recommendations from 41761-7) the NKF-ASN Tas k force, [facility] is in the process of updating its eG FR calculation to the 2020 CKD-EPI creatinine equa tion that estimates kidney function withou t a race variable.Perfor med by:[facility] ([facility]) BUN/Creatinine 13 9-20 Ratio (test code = 3097-3) Sodium (test code = 143 mmol/L 726-669 3536-2) Potassium (test 4.2 mmol/L 3.5-5.2 code = 2823-3) Chloride (test code 106 mmol/L 96-106 = 2075-0) Carbon Dioxide, 21 mmol/L 20-29 Total (test code = 2027-) Calcium (test code 10.0 mg/dL 8.7-10.2 = 67192-5) Protein, Total 7.5 g/dL 6.0-8.5 (test code = 2885-2) Albumin (test code 4.9 g/dL 3.8-4.9 = 1751-7) Globulin, Total 2.6 g/dL 1.5-4.5 (test code = 59930-5) A/G Ratio (test 1.9 1.2-2.2 code = 1759-0) Bilirubin, Total 0.4 mg/dL 0.0-1.2 (test code = 1975-2) Alkaline 90 IU/L 44-121 Please note Phosphatase (test reference interval code = 6768-6) changePerfo rmed by:[facility] ([place]) AST (SGOT) (test 20 IU/L 0-40 code = 1920-8) ALT (SGPT) (test 23 IU/L 0-44 code = 1742-6) [facility] Description: Comp. Metabolic Panel (14)2021-05-27 00:51:00 Test Item Value Reference Range Interpretation Comments Glucose (test code 85 mg/dL 65-99 = 2345-7) BUN (test code = 13 mg/dL 6-24 3094-0) Creatinine (test 1.03 mg/dL 0.76-1.27 code = 2160-0) eGFR If NonAfricn 83 >59 Am (test code = mL/min/1.73 55843-2) eGFR If Africn Am 96 >59 In accor dance with (test code = mL/min/1.73 recommendations from 86954-6) the NKF-ASN Tas k force, Heri roche is in the process of updating its eG FR calculation to the 2020 CKD-EPI creatinine equa tion that estimates kidney function withou t a race variable.Perfor med by:[facility] ([place]) BUN/Creatinine 13 9-20 Ratio (test code = 3097-3) Sodium (test code = 143 mmol/L 529-945 6051-2) Potassium (test 4.2 mmol/L 3.5-5.2 code = 2823-3) Chloride (test code 106 mmol/L 96-106 = 2075-0) Carbon Dioxide, 21 mmol/L 20-29 Total (test code = 2027-) Calcium (test code 10.0 mg/dL 8.7-10.2 = 87334-0) Protein, Total 7.5 g/dL 6.0-8.5 (test code = 2885-2) Albumin (test code 4.9 g/dL 3.8-4.9 = 1751-7) Globulin, Total 2.6 g/dL 1.5-4.5 (test code = 86670-1) A/G Ratio (test 1.9 1.2-2.2 code = 1759-0) Bilirubin, Total 0.4 mg/dL 0.0-1.2 (test code = 1975-2) Alkaline 90 IU/L 44-121 Please note Phosphatase (test reference interval code = 6768-6) changePerfo rmed by:[facility] ([place]) AST (SGOT) (test 20 IU/L 0-40 code = 1920-8) ALT (SGPT) (test 23 IU/L 0-44 code = 1742-6) [facility] Description: Comp. Metabolic Panel (14)2021-05-27 00:51:00 Test Item Value Reference Range Interpretation Comments Glucose (test code 85 mg/dL 65-99 = 2345-7) BUN (test code = 13 mg/dL 6-24 3094-0) Creatinine (test 1.03 mg/dL 0.76-1.27 code = 2160-0) eGFR If NonAfricn 83 >59 Am (test code = mL/min/1.73 31840-7) eGFR If Africn Am 96 >59 In accor dance with (test code = mL/min/1.73 recommendations from 29127-3) the NKF-ASN Tas k force, [facility] is in the process of updating its eG FR calculation to the 2020 CKD-EPI creatinine equa tion that estimates kidney function withou t a race variable.Perfor med by:[facility] ([place]) BUN/Creatinine 13 9-20 Ratio (test code = 3097-3) Sodium (test code = 143 mmol/L 217-291 8134-2) Potassium (test 4.2 mmol/L 3.5-5.2 code = 2823-3) Chloride (test code 106 mmol/L 96-106 = 2075-0) Carbon Dioxide, 21 mmol/L 20-29 Total (test code = 8-9) Calcium (test code 10.0 mg/dL 8.7-10.2 = 87090-0) Protein, Total 7.5 g/dL 6.0-8.5 (test code = 2885-2) Albumin (test code 4.9 g/dL 3.8-4.9 = 1751-7) Globulin, Total 2.6 g/dL 1.5-4.5 (test code = 07534-5) A/G Ratio (test 1.9 1.2-2.2 code = 1759-0) Bilirubin, Total 0.4 mg/dL 0.0-1.2 (test code = 1975-2) Alkaline 90 IU/L 44-121 Please note Phosphatase (test reference interval code = 6768-6) changePerfo rmed by:[facility] ([place]) AST (SGOT) (test 20 IU/L 0-40 code = 1920-8) ALT (SGPT) (test 23 IU/L 0-44 code = 1742-6) [facility] Description: Comp. Metabolic Panel (14)2021-05-27 00:51:00 Test Item Value Reference Range Interpretation Comments Glucose (test code 85 mg/dL 65-99 = 2345-7) BUN (test code = 13 mg/dL 6-24 3094-0) Creatinine (test 1.03 mg/dL 0.76-1.27 code = 2160-0) eGFR If NonAfricn 83 >59 Am (test code = mL/min/1.73 38260-1) eGFR If Africn Am 96 >59 In accor dance with (test code = mL/min/1.73 recommendations from 64524-8) the NKF-ASN Tas k force, [facility] is in the process of updating its eG FR calculation to the 2020 CKD-EPI creatinine equa tion that estimates kidney function withou t a race variable.Perfor med by:[facility] ([place]) BUN/Creatinine 13 9-20 Ratio (test code = 3097-3) Sodium (test code = 143 mmol/L 276-254 8670-2) Potassium (test 4.2 mmol/L 3.5-5.2 code = 2823-3) Chloride (test code 106 mmol/L 96-106 = 2075-0) Carbon Dioxide, 21 mmol/L 20-29 Total (test code = 2027-) Calcium (test code 10.0 mg/dL 8.7-10.2 = 19587-1) Protein, Total 7.5 g/dL 6.0-8.5 (test code = 2885-2) Albumin (test code 4.9 g/dL 3.8-4.9 = 1751-7) Globulin, Total 2.6 g/dL 1.5-4.5 (test code = 57890-9) A/G Ratio (test 1.9 1.2-2.2 code = 1759-0) Bilirubin, Total 0.4 mg/dL 0.0-1.2 (test code = 1975-2) Alkaline 90 IU/L 44-121 Please note Phosphatase (test reference interval code = 6768-6) changePerfo rmed by:[facility] ([place]) AST (SGOT) (test 20 IU/L 0-40 code = 1920-8) ALT (SGPT) (test 23 IU/L 0-44 code = 1742-6) [facility] Description: Comp. Metabolic Panel (14)2021-05-27 00:51:00 Test Item Value Reference Range Interpretation Comments Glucose (test code 85 mg/dL 65-99 = 2345-7) BUN (test code = 13 mg/dL 6-24 3094-0) Creatinine (test 1.03 mg/dL 0.76-1.27 code = 2160-0) eGFR If NonAfricn 83 >59 Am (test code = mL/min/1.73 22151-3) eGFR If Africn Am 96 >59 In accor dance with (test code = mL/min/1.73 recommendations from 19840-8) the NKF-ASN Tas k force, Heri roche is in the process of updating its eG FR calculation to the 2020 CKD-EPI creatinine equa tion that estimates kidney function withou t a race variable.Perfor med by:[facility] ([place]) BUN/Creatinine 13 9-20 Ratio (test code = 3097-3) Sodium (test code = 143 mmol/L 990-638 1237-2) Potassium (test 4.2 mmol/L 3.5-5.2 code = 2823-3) Chloride (test code 106 mmol/L 96-106 = 5-0) Carbon Dioxide, 21 mmol/L 20-29 Total (test code = 2027-) Calcium (test code 10.0 mg/dL 8.7-10.2 = 29371-9) Protein, Total 7.5 g/dL 6.0-8.5 (test code = 2885-2) Albumin (test code 4.9 g/dL 3.8-4.9 = 1751-7) Globulin, Total 2.6 g/dL 1.5-4.5 (test code = 19300-2) A/G Ratio (test 1.9 1.2-2.2 code = 1759-0) Bilirubin, Total 0.4 mg/dL 0.0-1.2 (test code = 1975-2) Alkaline 90 IU/L 44-121 Please note Phosphatase (test reference interval code = 6768-6) changePerfo rmed by:[facility] ([place]) AST (SGOT) (test 20 IU/L 0-40 code = 1920-8) ALT (SGPT) (test 23 IU/L 0-44 code = 1742-6) [facility] Description: Comp. Metabolic Panel (14)2021-05-27 00:51:00 Test Item Value Reference Range Interpretation Comments Glucose (test code 85 mg/dL 65-99 = 2345-7) BUN (test code = 13 mg/dL 6-24 3094-0) Creatinine (test 1.03 mg/dL 0.76-1.27 code = 2160-0) eGFR If NonAfricn 83 >59 Am (test code = mL/min/1.73 65688-5) eGFR If Africn Am 96 >59 In accor dance with (test code = mL/min/1.73 recommendations from 02859-2) the NKF-ASN Tas k force, [facility] is in the process of updating its eG FR calculation to the 2020 CKD-EPI creatinine equa tion that estimates kidney function withou t a race variable.Perfor med by:[facility] ([place]) BUN/Creatinine 13 9-20 Ratio (test code = 3097-3) Sodium (test code = 143 mmol/L 456-628 4793-2) Potassium (test 4.2 mmol/L 3.5-5.2 code = 2823-3) Chloride (test code 106 mmol/L 96-106 = 2075-0) Carbon Dioxide, 21 mmol/L 20-29 Total (test code = 2027-) Calcium (test code 10.0 mg/dL 8.7-10.2 = 48125-5) Protein, Total 7.5 g/dL 6.0-8.5 (test code = 2885-2) Albumin (test code 4.9 g/dL 3.8-4.9 = 1751-7) Globulin, Total 2.6 g/dL 1.5-4.5 (test code = 21144-4) A/G Ratio (test 1.9 1.2-2.2 code = 1759-0) Bilirubin, Total 0.4 mg/dL 0.0-1.2 (test code = 1974-2) Alkaline 90 IU/L 44-121 Please note Phosphatase (test reference interval code = 6768-6) changePerfo rmed by:[facility] ([place]) AST (SGOT) (test 20 IU/L 0-40 code = 1920-8) ALT (SGPT) (test 23 IU/L 0-44 code = 1742-6) [facility] Description: Comp. Metabolic Panel (14)2021-05-27 00:51:00 Test Item Value Reference Range Interpretation Comments Glucose (test code 85 mg/dL 65-99 = 2345-7) BUN (test code = 13 mg/dL 6-24 3094-0) Creatinine (test 1.03 mg/dL 0.76-1.27 code = 2160-0) eGFR If NonAfricn 83 >59 Am (test code = mL/min/1.73 14324-2) eGFR If Africn Am 96 >59 In accor dance with (test code = mL/min/1.73 recommendations from 32098-6) the NKF-ASN Tas k force, Heri roche is in the process of updating its eG FR calculation to the 2020 CKD-EPI creatinine equa tion that estimates kidney function withou t a race variable.Perfor med by:[facility] ([place]) BUN/Creatinine 13 9-20 Ratio (test code = 3097-3) Sodium (test code = 143 mmol/L 443-541 6350-2) Potassium (test 4.2 mmol/L 3.5-5.2 code = 2823-3) Chloride (test code 106 mmol/L 96-106 = 5-0) Carbon Dioxide, 21 mmol/L 20-29 Total (test code = 2027-) Calcium (test code 10.0 mg/dL 8.7-10.2 = 14152-1) Protein, Total 7.5 g/dL 6.0-8.5 (test code = 2885-2) Albumin (test code 4.9 g/dL 3.8-4.9 = 1751-7) Globulin, Total 2.6 g/dL 1.5-4.5 (test code = 71291-8) A/G Ratio (test 1.9 1.2-2.2 code = 1759-0) Bilirubin, Total 0.4 mg/dL 0.0-1.2 (test code = 1974-2) Alkaline 90 IU/L 44-121 Please note Phosphatase (test reference interval code = 6768-6) changePerfo rmed by:[facility] ([place]) AST (SGOT) (test 20 IU/L 0-40 code = 1920-8) ALT (SGPT) (test 23 IU/L 0-44 code = 1742-6) [facility] Description: Comp. Metabolic Panel (14)2021-05-27 00:51:00 Test Item Value Reference Range Interpretation Comments Glucose (test code 85 mg/dL 65-99 = 2345-7) BUN (test code = 13 mg/dL 6-24 3094-0) Creatinine (test 1.03 mg/dL 0.76-1.27 code = 2160-0) eGFR If NonAfricn 83 >59 Am (test code = mL/min/1.73 13233-6) eGFR If Africn Am 96 >59 In accor dance with (test code = mL/min/1.73 recommendations from 02085-7) the NKF-ASN Tas k force, [facility] is in the process of updating its eG FR calculation to the 2020 CKD-EPI creatinine equa tion that estimates kidney function withou t a race variable.Perfor med by:[facility] ([place]) BUN/Creatinine 13 9-20 Ratio (test code = 3097-3) Sodium (test code = 143 mmol/L 372-740 1244-2) Potassium (test 4.2 mmol/L 3.5-5.2 code = 2823-3) Chloride (test code 106 mmol/L 96-106 = 2075-0) Carbon Dioxide, 21 mmol/L 20-29 Total (test code = 2027-) Calcium (test code 10.0 mg/dL 8.7-10.2 = 28399-6) Protein, Total 7.5 g/dL 6.0-8.5 (test code = 2885-2) Albumin (test code 4.9 g/dL 3.8-4.9 = 1751-7) Globulin, Total 2.6 g/dL 1.5-4.5 (test code = 50424-7) A/G Ratio (test 1.9 1.2-2.2 code = 1759-0) Bilirubin, Total 0.4 mg/dL 0.0-1.2 (test code = 1975-2) Alkaline 90 IU/L 44-121 Please note Phosphatase (test reference interval code = 6768-6) changePerfo rmed by:[facility] ([place]) AST (SGOT) (test 20 IU/L 0-40 code = 1920-8) ALT (SGPT) (test 23 IU/L 0-44 code = 1742-6) [facility] Description: Comp. Metabolic Panel (14)2021-05-27 00:51:00 Test Item Value Reference Range Interpretation Comments Glucose (test code 85 mg/dL 65-99 = 2345-7) BUN (test code = 13 mg/dL 6-24 3094-0) Creatinine (test 1.03 mg/dL 0.76-1.27 code = 2160-0) eGFR If NonAfricn 83 >59 Am (test code = mL/min/1.73 89180-4) eGFR If Africn Am 96 >59 In accor dance with (test code = mL/min/1.73 recommendations from 92707-9) the NKF-ASN Tas k force, Heri roche is in the process of updating its eG FR calculation to the 2020 CKD-EPI creatinine equa tion that estimates kidney function withou t a race variable.Perfor med by:[facility] ([place]) BUN/Creatinine 13 9-20 Ratio (test code = 3097-3) Sodium (test code = 143 mmol/L 108-872 8375-2) Potassium (test 4.2 mmol/L 3.5-5.2 code = 2823-3) Chloride (test code 106 mmol/L 96-106 = 2075-0) Carbon Dioxide, 21 mmol/L 20-29 Total (test code = 2027-) Calcium (test code 10.0 mg/dL 8.7-10.2 = 08438-8) Protein, Total 7.5 g/dL 6.0-8.5 (test code = 2885-2) Albumin (test code 4.9 g/dL 3.8-4.9 = 1751-7) Globulin, Total 2.6 g/dL 1.5-4.5 (test code = 08989-7) A/G Ratio (test 1.9 1.2-2.2 code = 1759-0) Bilirubin, Total 0.4 mg/dL 0.0-1.2 (test code = 1975-2) Alkaline 90 IU/L 44-121 Please note Phosphatase (test reference interval code = 6768-6) changePerfo rmed by:[facility] Ge[facility]te martinez ([place]) AST (SGOT) (test 20 IU/L 0-40 code = 1920-8) ALT (SGPT) (test 23 IU/L 0-44 code = 1742-6) [facility] Description: Comp. Metabolic Panel (14)2021-05-27 00:51:00 Test Item Value Reference Range Interpretation Comments Glucose (test code 85 mg/dL 65-99 = 2345-7) BUN (test code = 13 mg/dL 6-24 3094-0) Creatinine (test 1.03 mg/dL 0.76-1.27 code = 2160-0) eGFR If NonAfricn 83 >59 Am (test code = mL/min/1.73 98847-6) eGFR If Africn Am 96 >59 In accor dance with (test code = mL/min/1.73 recommendations from 83776-6) the NKF-ASN Tas k force, Labg[facility] roche is in the process of updating its eG FR calculation to the 2020 CKD-EPI creatinine equa tion that estimates kidney function withou t a race variable.
< br/>Per formed by:
[facility] ([place])

BUN/Creatinine 13 9-20 Ratio (test code = 3097-3) Sodium (test code = 143 mmol/L 335-044 9011-2) Potassium (test 4.2 mmol/L 3.5-5.2 code = 2823-3) Chloride (test code 106 mmol/L 96-106 = 2075-0) Carbon Dioxide, 21 mmol/L 20-29 Total (test code = 2027-) Calcium (test code 10.0 mg/dL 8.7-10.2 = 65413-4) Protein, Total 7.5 g/dL 6.0-8.5 (test code = 2885-2) Albumin (test code 4.9 g/dL 3.8-4.9 = 1751-7) Globulin, Total 2.6 g/dL 1.5-4.5 (test code = 33962-8) A/G Ratio (test 1.9 1.2-2.2 code = 1759-0) Bilirubin, Total 0.4 mg/dL 0.0-1.2 (test code = 1975-2) Alkaline 90 IU/L 44-121 Please note Phosphatase (test reference interval code = 6768-6) change

Perf ormed by:
[facility] ([facility])

AST (SGOT) (test 20 IU/L 0-40 code = 1920-8) ALT (SGPT) (test 23 IU/L 0-44 code = 1742-6) [facility] Description: Comp. Metabolic Panel (14)2021-05-27 00:51:00 Test Item Value Reference Range Interpretation Comments Glucose (test code 85 mg/dL 65-99 = 2345-7) BUN (test code = 13 mg/dL 6-24 3094-0) Creatinine (test 1.03 mg/dL 0.76-1.27 code = 2160-0) eGFR If NonAfricn 83 >59 Am (test code = mL/min/1.73 75398-7) eGFR If Africn Am 96 >59 In accor dance with (test code = mL/min/1.73 recommendations from 17503-3) the NKF-ASN Tas k force, [facility] is in the process of updating its eG FR calculation to the 2020 CKD-EPI creatinine equa tion that estimates kidney function withou t a race variable.
< br/>Per formed by:
[facility] ([place])

BUN/Creatinine 13 9-20 Ratio (test code = 3097-3) Sodium (test code = 143 mmol/L 981-170 8549-2) Potassium (test 4.2 mmol/L 3.5-5.2 code = 2823-3) Chloride (test code 106 mmol/L 96-106 = 2075-0) Carbon Dioxide, 21 mmol/L 20-29 Total (test code = 2027-) Calcium (test code 10.0 mg/dL 8.7-10.2 = 13040-0) Protein, Total 7.5 g/dL 6.0-8.5 (test code = 2885-2) Albumin (test code 4.9 g/dL 3.8-4.9 = 1751-7) Globulin, Total 2.6 g/dL 1.5-4.5 (test code = 99234-8) A/G Ratio (test 1.9 1.2-2.2 code = 1759-0) Bilirubin, Total 0.4 mg/dL 0.0-1.2 (test code = 1974-2) Alkaline 90 IU/L 44-121 Please note Phosphatase (test reference interval code = 6768-6) change

Perf ormed by:
[facility] ([place])

AST (SGOT) (test 20 IU/L 0-40 code = 1920-8) ALT (SGPT) (test 23 IU/L 0-44 code = 1742-6) [facility] Description: Comp. Metabolic Panel (14)2021-05-27 00:51:00 Test Item Value Reference Range Interpretation Comments Glucose (test code 85 mg/dL 65-99 = 2345-7) BUN (test code = 13 mg/dL 6-24 3094-0) Creatinine (test 1.03 mg/dL 0.76-1.27 code = 2160-0) eGFR If NonAfricn 83 >59 Am (test code = mL/min/1.73 61019-1) eGFR If Africn Am 96 >59 In accor dance with (test code = mL/min/1.73 recommendations from 01398-1) the NKF-ASN Tas k force, [facility] is in the process of updating its eG FR calculation to the 2020 CKD-EPI creatinine equa tion that estimates kidney function withou t a race variable.
< br/>Per formed by:
[facility] ([place])

BUN/Creatinine 13 9-20 Ratio (test code = 3097-3) Sodium (test code = 143 mmol/L 836-535 4152-2) Potassium (test 4.2 mmol/L 3.5-5.2 code = 2823-3) Chloride (test code 106 mmol/L 96-106 = 2075-0) Carbon Dioxide, 21 mmol/L 20-29 Total (test code = 2027-) Calcium (test code 10.0 mg/dL 8.7-10.2 = 56831-3) Protein, Total 7.5 g/dL 6.0-8.5 (test code = 2885-2) Albumin (test code 4.9 g/dL 3.8-4.9 = 1751-7) Globulin, Total 2.6 g/dL 1.5-4.5 (test code = 36044-0) A/G Ratio (test 1.9 1.2-2.2 code = 1759-0) Bilirubin, Total 0.4 mg/dL 0.0-1.2 (test code = 1975-2) Alkaline 90 IU/L 44-121 Please note Phosphatase (test reference interval code = 6768-6) change

Perf ormed by:
[facility] ([place])

AST (SGOT) (test 20 IU/L 0-40 code = 1920-8) ALT (SGPT) (test 23 IU/L 0-44 code = 1742-6) [facility] Description: Hemoglobin A1c/Hemoglobin.total in Blood 2021-02-24 06:59:00 Test Item Value Reference Range Interpretation Comments Hemoglobin A1c (test code 6.4 % 4.8-5.6 H . Prediabetes: 5.7 - = 4548-4) 6.4 Diabetes: > 6.4 Glycemic contro l for adults with suzanne betes: <7.0

P erformed by:
[facility] ([place])

[facility] Description: Hemoglobin A1c/Hemoglobin.total in Blood 2021-02-24 06:59:00 Test Item Value Reference Range Interpretation Comments Hemoglobin A1c (test code 6.4 % 4.8-5.6 H . Prediabetes: 5.7 - = 4548-4) 6.4 Diabetes: > 6.4 Glycemic contro l for adults with suzanne betes: <7.0

P erformed by:
[facility] ([place])

[facility] Description: Hemoglobin A1c/Hemoglobin.total in Blood 2021-02-24 06:59:00 Test Item Value Reference Range Interpretation Comments Hemoglobin A1c (test code 6.4 % 4.8-5.6 H . Prediabetes: 5.7 - = 4548-4) 6.4 Diabetes: > 6.4 Glycemic contro l for adults with suzanne betes: <7.0

P erformed by:
[facility] ()

[facility] Description: Hemoglobin A1c/Hemoglobin.total in Blood 2021-02-24 06:59:00 Test Item Value Reference Range Interpretation Comments Hemoglobin A1c (test code 6.4 % 4.8-5.6 H . Prediabetes: 5.7 - = 4548-4) 6.4 Diabetes: > 6.4 Glycemic contro l for adults with suzanne betes: <7.0

P erformed by:
[facility] ()

[facility] Description: Hemoglobin A1c/Hemoglobin.total in Blood 2021-02-24 06:59:00 Test Item Value Reference Range Interpretation Comments Hemoglobin A1c (test code 6.4 % 4.8-5.6 H . Prediabetes: 5.7 - = 4548-4) 6.4 Diabetes: > 6.4 Glycemic contro l for adults with suzanne betes: <7.0

P erformed by:
[facility] ([place])

[facility] Description: Hemoglobin A1c/Hemoglobin.total in Blood 2021-02-24 06:59:00 Test Item Value Reference Range Interpretation Comments Hemoglobin A1c (test code 6.4 % 4.8-5.6 H . Prediabetes: 5.7 - = 4548-4) 6.4 Diabetes: > 6.4 Glycemic contro l for adults with suzanne betes: <7.0

P erformed by:
[facility] ([place])

[facility] Description: Hemoglobin A1c/Hemoglobin.total in Blood 2021-02-24 06:59:00 Test Item Value Reference Range Interpretation Comments Hemoglobin A1c (test code 6.4 % 4.8-5.6 H . Prediabetes: 5.7 - = 4548-4) 6.4 Diabetes: > 6.4 Glycemic contro l for adults with suzanne betes: <7.0

P erformed by:
[facility] ([place])

[facility] Description: Hemoglobin A1c/Hemoglobin.total in Blood 2021-02-24 06:59:00 Test Item Value Reference Range Interpretation Comments Hemoglobin A1c (test code 6.4 % 4.8-5.6 H . Prediabetes: 5.7 - = 4548-4) 6.4 Diabetes: > 6.4 Glycemic contro l for adults with uszanne betes: <7.0Performed by:[facility] ([place]) [facility] Description: Hemoglobin A1c/Hemoglobin.total in Blood 2021-02-24 06:59:00 Test Item Value Reference Range Interpretation Comments Hemoglobin A1c (test code 6.4 % 4.8-5.6 H . Prediabetes: 5.7 - = 4548-4) 6.4 Diabetes: > 6.4 Glycemic contro l for adults with suzanne betes: <7.0Performed by:[facility] ([place]) [facility] Description: Hemoglobin A1c/Hemoglobin.total in Blood 2021-02-24 06:59:00 Test Item Value Reference Range Interpretation Comments Hemoglobin A1c (test code 6.4 % 4.8-5.6 H . Prediabetes: 5.7 - = 4548-4) 6.4 Diabetes: > 6.4 Glycemic contro l for adults with suzanne betes: <7.0Performed by:[facility] ([place]) [facility] Description: Hemoglobin A1c/Hemoglobin.total in Blood 2021-02-24 06:59:00 Test Item Value Reference Range Interpretation Comments Hemoglobin A1c (test code 6.4 % 4.8-5.6 H . Prediabetes: 5.7 - = 4548-4) 6.4 Diabetes: > 6.4 Glycemic contro l for adults with suzanne betes: <7.0Performed by:[facility] ([place]) [facility] Description: Hemoglobin A1c/Hemoglobin.total in Blood 2021-02-24 06:59:00 Test Item Value Reference Range Interpretation Comments Hemoglobin A1c (test code 6.4 % 4.8-5.6 H . Prediabetes: 5.7 - = 4548-4) 6.4 Diabetes: > 6.4 Glycemic contro l for adults with suzanne betes: <7.0Performed by:[facility] ([place]) [facility] Description: Hemoglobin A1c/Hemoglobin.total in Blood 2021-02-24 06:59:00 Test Item Value Reference Range Interpretation Comments Hemoglobin A1c (test code 6.4 % 4.8-5.6 H . Prediabetes: 5.7 - = 4548-4) 6.4 Diabetes: > 6.4 Glycemic contro l for adults with suzanne betes: <7.0Performed by:[facility] ([place]) [facility] Description: Hemoglobin A1c/Hemoglobin.total in Blood 2021-02-24 06:59:00 Test Item Value Reference Range Interpretation Comments Hemoglobin A1c (test code 6.4 % 4.8-5.6 H . Prediabetes: 5.7 - = 4548-4) 6.4 Diabetes: > 6.4 Glycemic contro l for adults with suzanne betes: <7.0Performed by:[facility] ([place]) [facility] Description: Hemoglobin A1c/Hemoglobin.total in Blood 2021-02-24 06:59:00 Test Item Value Reference Range Interpretation Comments Hemoglobin A1c (test code 6.4 % 4.8-5.6 H . Prediabetes: 5.7 - = 4548-4) 6.4 Diabetes: > 6.4 Glycemic contro l for adults with suzanne betes: <7.0Performed by:[facility] ([place]) [facility] Description: Hemoglobin A1c/Hemoglobin.total in Blood 2021-02-24 06:59:00 Test Item Value Reference Range Interpretation Comments Hemoglobin A1c (test code 6.4 % 4.8-5.6 H . Prediabetes: 5.7 - = 4548-4) 6.4 Diabetes: > 6.4 Glycemic contro l for adults with suzanne betes: <7.0Performed by:[facility]ff[facility] ([place]) [facility] Description: Hemoglobin A1c/Hemoglobin.total in Blood 2021-02-24 06:59:00 Test Item Value Reference Range Interpretation Comments Hemoglobin A1c (test code 6.4 % 4.8-5.6 H . Prediabetes: 5.7 - = 4548-4) 6.4 Diabetes: > 6.4 Glycemic contro l for adults with suzanne betes: <7.0

P erformed by:
[facility] ()

[facility] Description: Hemoglobin A1c/Hemoglobin.total in Blood 2021-02-24 06:59:00 Test Item Value Reference Range Interpretation Comments Hemoglobin A1c (test code 6.4 % 4.8-5.6 H . Prediabetes: 5.7 - = 4548-4) 6.4 Diabetes: > 6.4 Glycemic contro l for adults with suzanne betes: <7.0

P erformed by:
[facility] ()

[facility] Description: Hemoglobin A1c/Hemoglobin.total in Blood 2021-02-24 06:59:00 Test Item Value Reference Range Interpretation Comments Hemoglobin A1c (test code 6.4 % 4.8-5.6 H . Prediabetes: 5.7 - = 4548-4) 6.4 Diabetes: > 6.4 Glycemic contro l for adults with suzanne betes: <7.0

P erformed by:
[facility] ()

[facility] Description: Hemoglobin A1c/Hemoglobin.total in Blood 2021-02-24 06:59:00 Test Item Value Reference Range Interpretation Comments Hemoglobin A1c (test code 6.4 % 4.8-5.6 H . Prediabetes: 5.7 - = 4548-4) 6.4 Diabetes: > 6.4 Glycemic contro l for adults with suzanne betes: <7.0

P erformed by:
[facility] ([place])

[facility] Description: Testosterone,Free and [id number] 03:12:00 Test Item Value Reference Range Interpretation Comments Testosterone, Serum 547 ng/dL 264-916 Adult ma le reference (test code = 2986-8) interva l is based on a population ofhe althy nonobese males (BMI <30) between 19 and 39 years old.hansa Marshall t.al. JCEM 2017,102;1 161-1173. PMID: [id number].
< br/>Perfo rmed by:
[facility] [employer] [facility] ([place])

Free 7.4 pg/mL 7.2-24.0 Testosterone(Direct) (test code = 2991-8) [facility] Description: Testosterone,Free and [id number] 03:12:00 Test Item Value Reference Range Interpretation Comments Testosterone, Serum 547 ng/dL 264-916 Adult ma le reference (test code = 2986-8) interva l is based on a population ofhe althy nonobese males (BMI <30) between 19 and 39 years old.Travhansa mackey t.al. JCEM 2017,102;1 161-1173. PMID: 86947674.
< br/>Perfo rmed by:
[facility] ([place])

Free 7.4 pg/mL 7.2-24.0 Testosterone(Direct) (test code = 2991-8) [facility] Description: Testosterone,Free and [id number] 03:12:00 Test Item Value Reference Range Interpretation Comments Testosterone, Serum 547 ng/dL 264-916 Adult ma le reference (test code = 2986-8) interva l is based on a population ofhe althy nonobese males (BMI <30) between 19 and 39 years old.hansa Marshall.al. JCEM 2017,102;1 161-1173. PMID: [id number].
< br/>Perfo rmed by:
[facility] ([place])

Free 7.4 pg/mL 7.2-24.0 Testosterone(Direct) (test code = 2991-8) [facility] Description: Testosterone,Free and [id number] 03:12:00 Test Item Value Reference Range Interpretation Comments Testosterone, Serum 547 ng/dL 264-916 Adult ma le reference (test code = 2986-8) interva l is based on a population ofhe althy nonobese males (BMI <30) between 19 and 39 years old.Travhansa mackey.al. JCEM 2017,102;1 161-1173. PMID: [id number].
< br/>Perfo rmed by:
[employer] [place] ([place])

Free 7.4 pg/mL 7.2-24.0 Testosterone(Direct) (test code = 2991-8) [facility] Description: Testosterone,Free and Nvvqy1321-07-52 03:12:00 Test Item Value Reference Range Interpretation Comments Testosterone, Serum 547 ng/dL 264-916 Adult ma le reference (test code = 2986-8) interva l is based on a population ofhe althy nonobese males (BMI <30) between 19 and 39 years old.hansa Marshall.al. JC 2017,102;1 161-1173. PMID: [id number].
< br/>Perfo rmed by:
[employer] (HD)

Free 7.4 pg/mL 7.2-24.0 Testosterone(Direct) (test code = 2991-8) [facility] Description: Testosterone,Free and [id number] 03:12:00 Test Item Value Reference Range Interpretation Comments Testosterone, Serum 547 ng/dL 264-916 Adult ma le reference (test code = 2986-8) interva l is based on a population ofhe althy nonobese males (BMI <30) between 19 and 39 years old.hansa Marshallal. JCEM 2017,102;1 161-1173. PMID: [id number].
< br/>Perfo rmed by:
Viri Canodarlin [place] ([place])

Free 7.4 pg/mL 7.2-24.0 Testosterone(Direct) (test code = 2991-8) [facility] Description: Testosterone,Free and [id number] 03:12:00 Test Item Value Reference Range Interpretation Comments Testosterone, Serum 547 ng/dL 264-916 Adult ma le reference (test code = 2986-8) interva l is based on a population ofhe althy nonobese males (BMI <30) between 19 and 39 years old.hansa Marshall.yumiko. [facility] [place],102;1 161-1173. PMID: [id number].
< br/>Perfo rmed by:
Viri Edmonds [place] ([place])

Free 7.4 pg/mL 7.2-24.0 Testosterone(Direct) (test code = 2991-8) [facility] Description: Testosterone,Free and Kwyhi3981-16-63 03:12:00 Test Item Value Reference Range Interpretation Comments Testosterone, Serum 547 ng/dL 264-916 Adult ma le reference (test code = 2986-8) interva l is based on a population ofhe althy nonobese males (BMI <30) between 19 and 39 years old.hansa Marshall.yumiko. [facility] [place] 2017,102;1 161-1173. PMID: [id number]. Performed by:Chet martinez (HD) Free 7.4 pg/mL 7.2-24.0 Testosterone(Direct) (test code = 2991-8) [facility] Description: Testosterone,Free and Isrtf7780-51-02 03:12:00 Test Item Value Reference Range Interpretation Comments Testosterone, Serum 547 ng/dL 264-916 Adult ma le reference (test code = 2986-8) interva l is based on a population ofhe althy nonobese males (BMI <30) between 19 and 39 years old.hansa Marshall.yumiko. [facility] [place] 2017,102;1 161-1173. PMID: [id number]. Performed by:[facility] [place] ([place]) Free 7.4 pg/mL 7.2-24.0 Testosterone(Direct) (test code = 2991-8) [facility] Description: Testosterone,Free and Tiaew4482-44-01 03:12:00 Test Item Value Reference Range Interpretation Comments Testosterone, Serum 547 ng/dL 264-916 Adult ma le reference (test code = 2986-8) interva l is based on a population ofhe althy nonobese males (BMI <30) between 19 and 39 years old.hansa Marshall t.al. JCEM 2017,102;1 161-1173. PMID: [id number]. Performed by:[facility] [place] ([place]) Free 7.4 pg/mL 7.2-24.0 Testosterone(Direct) (test code = 2991-8) [facility] Description: Testosterone,Free and Xavqo2880-53-85 03:12:00 Test Item Value Reference Range Interpretation Comments Testosterone, Serum 547 ng/dL 264-916 Adult ma le reference (test code = 2986-8) interva l is based on a population ofhe althy nonobese males (BMI <30) between 19 and 39 years old.Travison, hansa t.al. JCEM 2017,102;1 161-1173. PMID: [id number]. Performed by:[facility] ([place]) Free 7.4 pg/mL 7.2-24.0 Testosterone(Direct) (test code = 2991-8) [facility] Description: Testosterone,Free and [id number] 03:12:00 Test Item Value Reference Range Interpretation Comments Testosterone, Serum 547 ng/dL 264-916 Adult ma le reference (test code = 2986-8) interva l is based on a population ofhe althy nonobese males (BMI <30) between 19 and 39 years old.Travison, hansa t.al. JCEM 2017,102;1 161-1173. PMID: [id number]. Performed by:[facility] ([place]) Free 7.4 pg/mL 7.2-24.0 Testosterone(Direct) (test code = 2991-8) [facility] Description: Testosterone,Free and Cryra1675-68-85 03:12:00 Test Item Value Reference Range Interpretation Comments Testosterone, Serum 547 ng/dL 264-916 Adult ma le reference (test code = 2986-8) interva l is based on a population ofhe althy nonobese males (BMI <30) between 19 and 39 years old.hansa Marshall.al. [facility] [place] 2017,102;1 161-1173. PMID: [id number]. Performed by:[facility] ([place]) Free 7.4 pg/mL 7.2-24.0 Testosterone(Direct) (test code = 2991-8) [facility] Description: Testosterone,Free and Cbtns1987-14-43 03:12:00 Test Item Value Reference Range Interpretation Comments Testosterone, Serum 547 ng/dL 264-916 Adult ma le reference (test code = 2986-8) interva l is based on a population ofhe althy nonobese males (BMI <30) between 19 and 39 years old.hansa Marshall.al. [facility] [place] 2017,102;1 161-1173. PMID: [id number]. Performed by:[facility] ([place]) Free 7.4 pg/mL 7.2-24.0 Testosterone(Direct) (test code = 2991-8) [facility] Description: Testosterone,Free and [id number] 03:12:00 Test Item Value Reference Range Interpretation Comments Testosterone, Serum 547 ng/dL 264-916 Adult ma le reference (test code = 2986-8) interva l is based on a population ofhe althy nonobese males (BMI <30) between 19 and 39 years old.Travhansa mackey.al. [facility] [place] 2017,102;1 161-1173. PMID: [id number]. Performed by:[facility] [place] ([place]) Free 7.4 pg/mL 7.2-24.0 Testosterone(Direct) (test code = 2991-8) [facility] Description: Testosterone,Free and Xhddn2550-29-11 03:12:00 Test Item Value Reference Range Interpretation Comments Testosterone, Serum 547 ng/dL 264-916 Adult ma le reference (test code = 2986-8) interva l is based on a population ofhe althy nonobese males (BMI <30) between 19 and 39 years old.hansa Marshall.al. JCEM 2017,102;1 161-1173. PMID: [id number]. Performed by:Chet martinez (HD) Free 7.4 pg/mL 7.2-24.0 Testosterone(Direct) (test code = 2991-8) [facility] Description: Testosterone,Free and Towzv0245-45-41 03:12:00 Test Item Value Reference Range Interpretation Comments Testosterone, Serum 547 ng/dL 264-916 Adult ma le reference (test code = 2986-8) interva l is based on a population ofhe althy nonobese males (BMI <30) between 19 and 39 years old.Travhansa mackey.al. JCEM 2017,102;1 161-1173. PMID: [id number].
< br/>Perfo rmed by:
Viri [place] ([place])

Free 7.4 pg/mL 7.2-24.0 Testosterone(Direct) (test code = 2991-8) [facility] Description: Testosterone,Free and Jzqwp2907-79-21 03:12:00 Test Item Value Reference Range Interpretation Comments Testosterone, Serum 547 ng/dL 264-916 Adult ma le reference (test code = 2986-8) interva l is based on a population ofhe althy nonobese males (BMI <30) between 19 and 39 years old.hansa Marshall.al. JCEM 2017,102;1 161-1173. PMID: [id number].
< br/>Perfo rmed by:
Viri Edmonds [place] (HD)

Free 7.4 pg/mL 7.2-24.0 Testosterone(Direct) (test code = 2991-8) [facility] Description: Testosterone,Free and Ugrub5171-16-05 03:12:00 Test Item Value Reference Range Interpretation Comments Testosterone, Serum 547 ng/dL 264-916 Adult ma le reference (test code = 2986-8) interva l is based on a population ofhe althy nonobese males (BMI <30) between 19 and 39 years old.Travhansa mackey.al. JCEM 2017,102;1 161-1173. PMID: [id number].
< br/>Perfo rmed by:
[employer] [place] ([place])

Free 7.4 pg/mL 7.2-24.0 Testosterone(Direct) (test code = 2991-8) [facility] Description: Testosterone,Free and Rsppv7620-12-46 03:12:00 Test Item Value Reference Range Interpretation Comments Testosterone, Serum 547 ng/dL 264-916 Adult ma le reference (test code = 2986-8) interva l is based on a population ofhe althy nonobese males (BMI <30) between 19 and 39 years old.hansa Marshall t.al. EM 2017,102;1 161-1173. PMID: [id number].
< br/>Perfo rmed by:
[employer] Kendal [place] (HD)

Free 7.4 pg/mL 7.2-24.0 Testosterone(Direct) (test code = 2991-8) [facility] Description: Lipid Nhfyv3506-86-28 02:47:00 Test Item Value Reference Range Interpretation Comments Cholesterol, Total (test code = 116 mg/dL 352-709 6436-3) Triglycerides (test code = 2571-8) 169 mg/dL 0-149 H HDL Cholesterol (test code = 29 mg/dL >39 L 9) VLDL Cholesterol Jose Roberto (test code = 29 mg/dL 5-40 36912-3) LDL Chol Calc (NIH) (test code = 58 mg/dL 0-99 33252-1) Comment: (test code = 06236-7) [facility] Description: Lipid Jqazj8821-68-92 02:47:00 Test Item Value Reference Range Interpretation Comments Cholesterol, Total (test code = 116 mg/dL 797-156 7641-3) Triglycerides (test code = 2571-8) 169 mg/dL 0-149 H HDL Cholesterol (test code = 29 mg/dL >39 L 9) VLDL Cholesterol Jose Roberto (test code = 29 mg/dL 5-40 21423-4) LDL Chol Calc (NIH) (test code = 58 mg/dL 0-99 77614-7) Comment: (test code = 81051-5) [facility] Description: Lipid Uokig6993-10-25 02:47:00 Test Item Value Reference Range Interpretation Comments Cholesterol, Total (test code = 116 mg/dL 957-070 7338-3) Triglycerides (test code = 2571-8) 169 mg/dL 0-149 H HDL Cholesterol (test code = 29 mg/dL >39 L 2085-9) VLDL Cholesterol Jose Roberto (test code = 29 mg/dL 5-40 02289-9) LDL Chol Calc (NIH) (test code = 58 mg/dL 0-99 25144-0) Comment: (test code = 62025-9) [facility] Description: Lipid Tbjie1246-42-22 02:47:00 Test Item Value Reference Range Interpretation Comments Cholesterol, Total (test code = 116 mg/dL 992-250 3820-3) Triglycerides (test code = 2571-8) 169 mg/dL 0-149 H HDL Cholesterol (test code = 29 mg/dL >39 L 2085-9) VLDL Cholesterol Jose Roberto (test code = 29 mg/dL 5-40 12861-9) LDL Chol Calc (NIH) (test code = 58 mg/dL 0-99 97333-7) Comment: (test code = 15074-1) [facility] Description: Lipid Fwtgd6636-77-07 02:47:00 Test Item Value Reference Range Interpretation Comments Cholesterol, Total (test code = 116 mg/dL 830-459 9938-3) Triglycerides (test code = 2571-8) 169 mg/dL 0-149 H HDL Cholesterol (test code = 29 mg/dL >39 L 5-9) VLDL Cholesterol Jose Roberto (test code = 29 mg/dL 5-40 92807-7) LDL Chol Calc (NIH) (test code = 58 mg/dL 0-99 48158-2) Comment: (test code = 05502-9) [facility] Description: Lipid Zuykk5442-42-75 02:47:00 Test Item Value Reference Range Interpretation Comments Cholesterol, Total (test code = 116 mg/dL 053-288 7435-3) Triglycerides (test code = 2571-8) 169 mg/dL 0-149 H HDL Cholesterol (test code = 29 mg/dL >39 L 2085-9) VLDL Cholesterol Jose Roberto (test code = 29 mg/dL 5-40 40231-4) LDL Chol Calc (NIH) (test code = 58 mg/dL 0-99 73215-6) Comment: (test code = 52128-0) [facility] Description: Lipid Odevw5451-27-16 02:47:00 Test Item Value Reference Range Interpretation Comments Cholesterol, Total (test code = 116 mg/dL 178-021 3192-3) Triglycerides (test code = 2571-8) 169 mg/dL 0-149 H HDL Cholesterol (test code = 29 mg/dL >39 L 2085-9) VLDL Cholesterol Jose Roberto (test code = 29 mg/dL 5-40 25905-0) LDL Chol Calc (NIH) (test code = 58 mg/dL 0-99 34301-6) Comment: (test code = 84936-8) [facility] Description: Lipid Ikmpi0480-15-55 02:47:00 Test Item Value Reference Range Interpretation Comments Cholesterol, Total (test code = 116 mg/dL 460-399 3584-3) Triglycerides (test code = 2571-8) 169 mg/dL 0-149 H HDL Cholesterol (test code = 29 mg/dL >39 L 2085-9) VLDL Cholesterol Jose Roberto (test code = 29 mg/dL 5-40 44480-8) LDL Chol Calc (NIH) (test code = 58 mg/dL 0-99 09933-9) Comment: (test code = 58461-2) [facility] Description: Lipid Vvcnv5394-38-65 02:47:00 Test Item Value Reference Range Interpretation Comments Cholesterol, Total (test code = 116 mg/dL 664-106 9006-3) Triglycerides (test code = 2571-8) 169 mg/dL 0-149 H HDL Cholesterol (test code = 29 mg/dL >39 L 2085-9) VLDL Cholesterol Jose Roberto (test code = 29 mg/dL 5-40 57005-4) LDL Chol Calc (NIH) (test code = 58 mg/dL 0-99 58655-6) Comment: (test code = 32800-2) [facility] Description: Lipid Iwimn1721-09-53 02:47:00 Test Item Value Reference Range Interpretation Comments Cholesterol, Total (test code = 116 mg/dL 490-382 2731-3) Triglycerides (test code = 2571-8) 169 mg/dL 0-149 H HDL Cholesterol (test code = 29 mg/dL >39 L 2085-9) VLDL Cholesterol Jose Roberto (test code = 29 mg/dL 5-40 11547-6) LDL Chol Calc (NIH) (test code = 58 mg/dL 0-99 73787-8) Comment: (test code = 35502-2) [facility] Description: Lipid Gwpqv4198-82-20 02:47:00 Test Item Value Reference Range Interpretation Comments Cholesterol, Total (test code = 116 mg/dL 512-511 3029-3) Triglycerides (test code = 2571-8) 169 mg/dL 0-149 H HDL Cholesterol (test code = 29 mg/dL >39 L 2085-9) VLDL Cholesterol Jose Roberto (test code = 29 mg/dL 5-40 93574-1) LDL Chol Calc (NIH) (test code = 58 mg/dL 0-99 72621-0) Comment: (test code = 01886-3) [facility] Description: Lipid Orngx5999-68-35 02:47:00 Test Item Value Reference Range Interpretation Comments Cholesterol, Total (test code = 116 mg/dL 082-083 0509-3) Triglycerides (test code = 2571-8) 169 mg/dL 0-149 H HDL Cholesterol (test code = 29 mg/dL >39 L 2085-9) VLDL Cholesterol Jose Roberto (test code = 29 mg/dL 5-40 50178-3) LDL Chol Calc (NIH) (test code = 58 mg/dL 0-99 47399-7) Comment: (test code = 16387-2) [facility] Description: Lipid Cusok5059-55-90 02:47:00 Test Item Value Reference Range Interpretation Comments Cholesterol, Total (test code = 116 mg/dL 909-140 2247-3) Triglycerides (test code = 2571-8) 169 mg/dL 0-149 H HDL Cholesterol (test code = 29 mg/dL >39 L 2085-9) VLDL Cholesterol Jose Roberto (test code = 29 mg/dL 5-40 97644-5) LDL Chol Calc (NIH) (test code = 58 mg/dL 0-99 72571-3) Comment: (test code = 72352-6) [facility] Description: Lipid Ncrpj6660-89-67 02:47:00 Test Item Value Reference Range Interpretation Comments Cholesterol, Total (test code = 116 mg/dL 792-074 0125-3) Triglycerides (test code = 2571-8) 169 mg/dL 0-149 H HDL Cholesterol (test code = 29 mg/dL >39 L 2085-9) VLDL Cholesterol Jose Roberto (test code = 29 mg/dL 5-40 32628-7) LDL Chol Calc (NIH) (test code = 58 mg/dL 0-99 49702-0) Comment: (test code = 86955-4) [facility] Description: Lipid Qqwqj4664-80-09 02:47:00 Test Item Value Reference Range Interpretation Comments Cholesterol, Total (test code = 116 mg/dL 431-356 9705-3) Triglycerides (test code = 2571-8) 169 mg/dL 0-149 H HDL Cholesterol (test code = 29 mg/dL >39 L 5-9) VLDL Cholesterol Jose Roberto (test code = 29 mg/dL 5-40 11195-7) LDL Chol Calc (NIH) (test code = 58 mg/dL 0-99 74489-4) Comment: (test code = 28388-6) [facility] Description: Lipid Pdhxq5025-75-11 02:47:00 Test Item Value Reference Range Interpretation Comments Cholesterol, Total (test code = 116 mg/dL 206-735 2040-3) Triglycerides (test code = 2571-8) 169 mg/dL 0-149 H HDL Cholesterol (test code = 29 mg/dL >39 L 5-9) VLDL Cholesterol Jose Roberto (test code = 29 mg/dL 5-40 08040-6) LDL Chol Calc (NIH) (test code = 58 mg/dL 0-99 01106-2) Comment: (test code = 87655-9) [facility] Description: Lipid Cftij1508-11-84 02:47:00 Test Item Value Reference Range Interpretation Comments Cholesterol, Total (test code = 116 mg/dL 284-666 3481-3) Triglycerides (test code = 2571-8) 169 mg/dL 0-149 H HDL Cholesterol (test code = 29 mg/dL >39 L 2085-9) VLDL Cholesterol Jose Roberto (test code = 29 mg/dL 5-40 89131-3) LDL Chol Calc (NIH) (test code = 58 mg/dL 0-99 18723-5) Comment: (test code = 34365-9) [facility] Description: Lipid Gnrmy3443-88-97 02:47:00 Test Item Value Reference Range Interpretation Comments Cholesterol, Total (test code = 116 mg/dL 807-447 5891-3) Triglycerides (test code = 2571-8) 169 mg/dL 0-149 H HDL Cholesterol (test code = 29 mg/dL >39 L 2085-9) VLDL Cholesterol Jose Roberto (test code = 29 mg/dL 5-40 59380-8) LDL Chol Calc (NIH) (test code = 58 mg/dL 0-99 45475-5) Comment: (test code = 30221-8) [facility] Description: Lipid Vallw4661-16-15 02:47:00 Test Item Value Reference Range Interpretation Comments Cholesterol, Total (test code = 116 mg/dL 519-205 2566-3) Triglycerides (test code = 2571-8) 169 mg/dL 0-149 H HDL Cholesterol (test code = 29 mg/dL >39 L 5-9) VLDL Cholesterol Jose Roberto (test code = 29 mg/dL 5-40 81314-6) LDL Chol Calc (NIH) (test code = 58 mg/dL 0-99 23563-2) Comment: (test code = 26394-2) [facility] Description: Lipid Yvsny0881-74-52 02:47:00 Test Item Value Reference Range Interpretation Comments Cholesterol, Total (test code = 116 mg/dL 290-302 9218-3) Triglycerides (test code = 2571-8) 169 mg/dL 0-149 H HDL Cholesterol (test code = 29 mg/dL >39 L 5-9) VLDL Cholesterol Jose Roberto (test code = 29 mg/dL 5-40 91172-5) LDL Chol Calc (NIH) (test code = 58 mg/dL 0-99 42060-0) Comment: (test code = 61874-8) [facility] Description: Comp. Metabolic Panel (14)2021-02-24 02:43:00 Test Item Value Reference Range Interpretation Comments Glucose (test code 137 mg/dL 65-99 H = 2345-7) BUN (test code = 18 mg/dL 6-24 3094-0) Creatinine (test 0.95 mg/dL 0.76-1.27 code = 2160-0) eGFR If NonAfricn 92 >59 Am (test code = mL/min/1.73 26752-2) eGFR If Africn Am 106 >59 [facility] currently (test code = mL/min/1.73 [place] [address]-4) compliance with the current recommendations of the National Kidney Foundation. Lab rachel will update rep orting as new guidelin es are published from the NKF-ASN Task force.
<br/ >Perfor med by:
Lab Rachel [place]illa ([place])

BUN/Creatinine 19 9-20 Ratio (test code = 3097-3) Sodium (test code = 139 mmol/L 136-951 5453-2) Potassium (test 4.6 mmol/L 3.5-5.2 code = 2823-3) Chloride (test code 102 mmol/L 96-106 = 2075-0) Carbon Dioxide, 23 mmol/L 20-29 Total (test code = 2027-) Calcium (test code 9.8 mg/dL 8.7-10.2 = 10068-1) Protein, Total 7.5 g/dL 6.0-8.5 (test code = 2885-2) Albumin (test code 4.7 g/dL 3.8-4.9 = 1751-7) Globulin, Total 2.8 g/dL 1.5-4.5 (test code = 29653-2) A/G Ratio (test 1.7 1.2-2.2 code = 1759-0) Bilirubin, Total 0.6 mg/dL 0.0-1.2 (test code = 1975-2) Alkaline 87 IU/L 48-121 Phosphatase (test code = 6768-6) AST (SGOT) (test 18 IU/L 0-40 code = 1920-8) ALT (SGPT) (test 21 IU/L 0-44 code = 1742-6) [facility] Description: Comp. Metabolic Panel (14)2021-02-24 02:43:00 Test Item Value Reference Range Interpretation Comments Glucose (test code 137 mg/dL 65-99 H = 2345-7) BUN (test code = 18 mg/dL 6-24 3094-0) Creatinine (test 0.95 mg/dL 0.76-1.27 code = 2160-0) eGFR If NonAfricn 92 >59 Am (test code = mL/min/1.73 03203-5) eGFR If Africn Am 106 >59 [facility] currently (test code = mL/min/1[place] [address]-5) compliance with the current recommendations of the National Kidney Foundation. Lab rachel will update rep orting as new guidelin es are published from the NKF-ASN Task force.
<br/ >Perfor med by:
Lab Rachel [place]illa (HD)

BUN/Creatinine 19 9-20 Ratio (test code = 3097-3) Sodium (test code = 139 mmol/L 577-603 5353-2) Potassium (test 4.6 mmol/L 3.5-5.2 code = 2823-3) Chloride (test code 102 mmol/L 96-106 = 2075-0) Carbon Dioxide, 23 mmol/L 20-29 Total (test code = 2027-) Calcium (test code 9.8 mg/dL 8.7-10.2 = 86357-4) Protein, Total 7.5 g/dL 6.0-8.5 (test code = 2885-2) Albumin (test code 4.7 g/dL 3.8-4.9 = 1751-7) Globulin, Total 2.8 g/dL 1.5-4.5 (test code = 69603-6) A/G Ratio (test 1.7 1.2-2.2 code = 1759-0) Bilirubin, Total 0.6 mg/dL 0.0-1.2 (test code = 1975-2) Alkaline 87 IU/L 48-121 Phosphatase (test code = 6768-6) AST (SGOT) (test 18 IU/L 0-40 code = 1920-8) ALT (SGPT) (test 21 IU/L 0-44 code = 1742-6) [facility] Description: Comp. Metabolic Panel (14)2021-02-24 02:43:00 Test Item Value Reference Range Interpretation Comments Glucose (test code 137 mg/dL 65-99 H = 2345-7) BUN (test code = 18 mg/dL 6-24 3094-0) Creatinine (test 0.95 mg/dL 0.76-1.27 code = 2160-0) eGFR If NonAfricn 92 >59 Am (test code = mL/min/1.73 48548-7) eGFR If Africn Am 106 >59 [facility] currently (test code = mL/min/1[place] [address]-1) compliance with the current recommendations of the National Kidney Foundation. Lab rachel will update rep orting as new guidelin es are published from the NKF-ASN Task force.
<br/ >Perfor med by:
Lab Rachel Montilla (HD)

BUN/Creatinine 19 9-20 Ratio (test code = 3097-3) Sodium (test code = 139 mmol/L 578-957 2026-2) Potassium (test 4.6 mmol/L 3.5-5.2 code = 2823-3) Chloride (test code 102 mmol/L 96-106 = 2075-0) Carbon Dioxide, 23 mmol/L 20-29 Total (test code = 2027-) Calcium (test code 9.8 mg/dL 8.7-10.2 = 45829-9) Protein, Total 7.5 g/dL 6.0-8.5 (test code = 2885-2) Albumin (test code 4.7 g/dL 3.8-4.9 = 1751-7) Globulin, Total 2.8 g/dL 1.5-4.5 (test code = 40478-7) A/G Ratio (test 1.7 1.2-2.2 code = 1759-0) Bilirubin, Total 0.6 mg/dL 0.0-1.2 (test code = 1975-2) Alkaline 87 IU/L 48-121 Phosphatase (test code = 6768-6) AST (SGOT) (test 18 IU/L 0-40 code = 1920-8) ALT (SGPT) (test 21 IU/L 0-44 code = 1742-6) [facility] Description: Comp. Metabolic Panel (14)2021-02-24 02:43:00 Test Item Value Reference Range Interpretation Comments Glucose (test code 137 mg/dL 65-99 H = 2345-7) BUN (test code = 18 mg/dL 6-24 3094-0) Creatinine (test 0.95 mg/dL 0.76-1.27 code = 2160-0) eGFR If NonAfricn 92 >59 Am (test code = mL/min/1.73 32804-0) eGFR If Africn Am 106 >59 [facility] currently (test code = mL/min/1.73 [place] [address]-8) compliance with the current recommendations of the National Kidney Foundation. Lab rachel will update rep orting as new guidelin es are published from the NKF-ASN Task force.
<br/ >Perfor med by:
Lab Rachel [place]illa (HD)

BUN/Creatinine 19 9-20 Ratio (test code = 3097-3) Sodium (test code = 139 mmol/L 294-167 2250-2) Potassium (test 4.6 mmol/L 3.5-5.2 code = 2823-3) Chloride (test code 102 mmol/L 96-106 = 2075-0) Carbon Dioxide, 23 mmol/L 20-29 Total (test code = 2027-) Calcium (test code 9.8 mg/dL 8.7-10.2 = 81264-2) Protein, Total 7.5 g/dL 6.0-8.5 (test code = 2885-2) Albumin (test code 4.7 g/dL 3.8-4.9 = 1751-7) Globulin, Total 2.8 g/dL 1.5-4.5 (test code = 63854-0) A/G Ratio (test 1.7 1.2-2.2 code = 1759-0) Bilirubin, Total 0.6 mg/dL 0.0-1.2 (test code = 1975-2) Alkaline 87 IU/L 48-121 Phosphatase (test code = 6768-6) AST (SGOT) (test 18 IU/L 0-40 code = 1920-8) ALT (SGPT) (test 21 IU/L 0-44 code = 1742-6) [facility] Description: Comp. Metabolic Panel (14)2021-02-24 02:43:00 Test Item Value Reference Range Interpretation Comments Glucose (test code 137 mg/dL 65-99 H = 2345-7) BUN (test code = 18 mg/dL 6-24 3094-0) Creatinine (test 0.95 mg/dL 0.76-1.27 code = 2160-0) eGFR If NonAfricn 92 >59 Am (test code = mL/min/1.73 17980-5) eGFR If Africn Am 106 >59 [facility] currently (test code = mL/min/1.73 [place] [address]-5) compliance with the current recommendations of the National Kidney Foundation. Lab rachel will update rep orting as new guidelin es are published from the NKF-ASN Task force.
<br/ >Perfor med by:
Lab Rachel Montilla (HD)

BUN/Creatinine 19 9-20 Ratio (test code = 3097-3) Sodium (test code = 139 mmol/L 147-936 3907-2) Potassium (test 4.6 mmol/L 3.5-5.2 code = 2823-3) Chloride (test code 102 mmol/L 96-106 = 2075-0) Carbon Dioxide, 23 mmol/L 20-29 Total (test code = 2027-9) Calcium (test code 9.8 mg/dL 8.7-10.2 = 08836-5) Protein, Total 7.5 g/dL 6.0-8.5 (test code = 2885-2) Albumin (test code 4.7 g/dL 3.8-4.9 = 1751-7) Globulin, Total 2.8 g/dL 1.5-4.5 (test code = 95477-6) A/G Ratio (test 1.7 1.2-2.2 code = 1759-0) Bilirubin, Total 0.6 mg/dL 0.0-1.2 (test code = 1975-2) Alkaline 87 IU/L 48-121 Phosphatase (test code = 6768-6) AST (SGOT) (test 18 IU/L 0-40 code = 1920-8) ALT (SGPT) (test 21 IU/L 0-44 code = 1742-6) [facility] Description: Comp. Metabolic Panel (2021-02-24 02:43:00 Test Item Value Reference Range Interpretation Comments Glucose (test code 137 mg/dL 65-99 H = 2345-7) BUN (test code = 18 mg/dL 6-24 3094-0) Creatinine (test 0.95 mg/dL 0.76-1.27 code = 2160-0) eGFR If NonAfricn 92 >59 Am (test code = mL/min/1.73 50437-1) eGFR If Africn Am 106 >59 [facility] currently (test code = mL/min/1.73 [place] [address]-9) compliance with the current recommendations of the [employer]. Lab rachel will update rep orting as new guidelin es are published from the NKF-ASN Task force.
<br/ >Perfor med by:
Lab Rachel Montilla (HD)

BUN/Creatinine 19 9-20 Ratio (test code = 3097-3) Sodium (test code = 139 mmol/L 066-218 1181-2) Potassium (test 4.6 mmol/L 3.5-5.2 code = 2823-3) Chloride (test code 102 mmol/L 96-106 = 2075-0) Carbon Dioxide, 23 mmol/L 20-29 Total (test code = 2027-9) Calcium (test code 9.8 mg/dL 8.7-10.2 = 15652-6) Protein, Total 7.5 g/dL 6.0-8.5 (test code = 2885-2) Albumin (test code 4.7 g/dL 3.8-4.9 = 1751-7) Globulin, Total 2.8 g/dL 1.5-4.5 (test code = 11850-2) A/G Ratio (test 1.7 1.2-2.2 code = 1759-0) Bilirubin, Total 0.6 mg/dL 0.0-1.2 (test code = 1975-2) Alkaline 87 IU/L 48-121 Phosphatase (test code = 6768-6) AST (SGOT) (test 18 IU/L 0-40 code = 1920-8) ALT (SGPT) (test 21 IU/L 0-44 code = 1742-6) [facility] Description: Comp. Metabolic Panel (142021-02-24 02:43:00 Test Item Value Reference Range Interpretation Comments Glucose (test code 137 mg/dL 65-99 H = 2345-7) BUN (test code = 18 mg/dL 6-24 3094-0) Creatinine (test 0.95 mg/dL 0.76-1.27 code = 2160-0) eGFR If NonAfricn 92 >59 Am (test code = mL/min/1.73 17403-6) eGFR If Africn Am 106 >59 [facility] currently (test code = mL/min/1.73 [place] 34903-1) compliance with the current recommendations of the [employer] Kid[employer]. Lab rachel will update rep orting as new guidelin es are published from the NKF-ASN Task force.
<br/ >Perfor med by:
Lab Rachel Montilla (HD)

BUN/Creatinine 19 9-20 Ratio (test code = 3097-3) Sodium (test code = 139 mmol/L 778-138 4830-2) Potassium (test 4.6 mmol/L 3.5-5.2 code = 2823-3) Chloride (test code 102 mmol/L 96-106 = 2075-0) Carbon Dioxide, 23 mmol/L 20-29 Total (test code = 2027-) Calcium (test code 9.8 mg/dL 8.7-10.2 = 79777-3) Protein, Total 7.5 g/dL 6.0-8.5 (test code = 2885-2) Albumin (test code 4.7 g/dL 3.8-4.9 = 1751-7) Globulin, Total 2.8 g/dL 1.5-4.5 (test code = 52541-4) A/G Ratio (test 1.7 1.2-2.2 code = 1759-0) Bilirubin, Total 0.6 mg/dL 0.0-1.2 (test code = 1975-2) Alkaline 87 IU/L 48-121 Phosphatase (test code = 6768-6) AST (SGOT) (test 18 IU/L 0-40 code = 1920-8) ALT (SGPT) (test 21 IU/L 0-44 code = 1742-6) [facility] Description: Comp. Metabolic Panel (14)2021-02-24 02:43:00 Test Item Value Reference Range Interpretation Comments Glucose (test code 137 mg/dL 65-99 H = 2345-7) BUN (test code = 18 mg/dL 6-24 3094-0) Creatinine (test 0.95 mg/dL 0.76-1.27 code = 2160-0) eGFR If NonAfricn 92 >59 Am (test code = mL/min/1.73 34817-2) eGFR If Africn Am 106 >59 [facility] currently (test code = mL/min/1.73 [place] [address]-1) compliance with the current recommendations of the National Kid[employer] Foundation. Lab rachel will update rep orting as new guidelin es are published from the NKF-ASN Task force.Performed by:[facility] [place] ([place]) BUN/Creatinine 19 9-20 Ratio (test code = 3097-3) Sodium (test code = 139 mmol/L 979-154 5021-2) Potassium (test 4.6 mmol/L 3.5-5.2 code = 2823-3) Chloride (test code 102 mmol/L 96-106 = 2075-0) Carbon Dioxide, 23 mmol/L 20-29 Total (test code = 2027-) Calcium (test code 9.8 mg/dL 8.7-10.2 = 01405-9) Protein, Total 7.5 g/dL 6.0-8.5 (test code = 2885-2) Albumin (test code 4.7 g/dL 3.8-4.9 = 1751-7) Globulin, Total 2.8 g/dL 1.5-4.5 (test code = 34743-5) A/G Ratio (test 1.7 1.2-2.2 code = 1759-0) Bilirubin, Total 0.6 mg/dL 0.0-1.2 (test code = 1975-2) Alkaline 87 IU/L 48-121 Phosphatase (test code = 6768-6) AST (SGOT) (test 18 IU/L 0-40 code = 1920-8) ALT (SGPT) (test 21 IU/L 0-44 code = 1742-6) [facility] Description: Comp. Metabolic Panel (14)2021-02-24 02:43:00 Test Item Value Reference Range Interpretation Comments Glucose (test code 137 mg/dL 65-99 H = 2345-7) BUN (test code = 18 mg/dL 6-24 3094-0) Creatinine (test 0.95 mg/dL 0.76-1.27 code = 2160-0) eGFR If NonAfricn 92 >59 Am (test code = mL/min/1.73 61471-1) eGFR If Africn Am 106 >59 [facility] currently (test code = mL/min/1.73 [place] [address]-0) compliance with the current recommendations of the [employer] Kid[employer] Foundation. Lab rachel will update rep orting as new guidelin es are published from the NKF-ASN Task force.Performed by:[facility] [place] ([place]) BUN/Creatinine 19 9-20 Ratio (test code = 3097-3) Sodium (test code = 139 mmol/L 950-613 4483-2) Potassium (test 4.6 mmol/L 3.5-5.2 code = 2823-3) Chloride (test code 102 mmol/L 96-106 = 2075-0) Carbon Dioxide, 23 mmol/L 20-29 Total (test code = 2027-9) Calcium (test code 9.8 mg/dL 8.7-10.2 = 80680-4) Protein, Total 7.5 g/dL 6.0-8.5 (test code = 2885-2) Albumin (test code 4.7 g/dL 3.8-4.9 = 1751-7) Globulin, Total 2.8 g/dL 1.5-4.5 (test code = 45724-0) A/G Ratio (test 1.7 1.2-2.2 code = 1759-0) Bilirubin, Total 0.6 mg/dL 0.0-1.2 (test code = 1975-2) Alkaline 87 IU/L 48-121 Phosphatase (test code = 6768-6) AST (SGOT) (test 18 IU/L 0-40 code = 1920-8) ALT (SGPT) (test 21 IU/L 0-44 code = 1742-6) [facility] Description: Comp. Metabolic Panel (14)2021-02-24 02:43:00 Test Item Value Reference Range Interpretation Comments Glucose (test code 137 mg/dL 65-99 H = 2345-7) BUN (test code = 18 mg/dL 6-24 3094-0) Creatinine (test 0.95 mg/dL 0.76-1.27 code = 2160-0) eGFR If NonAfricn 92 >59 Am (test code = mL/min/1.73 65108-6) eGFR If Africn Am 106 >59 [facility] currently (test code = mL/min/1.73 [place] [address]-9) compliance with the current recommendations of the National Kid[employer] Foundation. Lab rachel will update rep orting as new guidelin es are published from the NKF-ASN Task force.Performed by:[facility] [place] ([place]) BUN/Creatinine 19 9-20 Ratio (test code = 3097-3) Sodium (test code = 139 mmol/L 028-298 0868-2) Potassium (test 4.6 mmol/L 3.5-5.2 code = 2823-3) Chloride (test code 102 mmol/L 96-106 = 2075-0) Carbon Dioxide, 23 mmol/L 20-29 Total (test code = 8-9) Calcium (test code 9.8 mg/dL 8.7-10.2 = 88727-8) Protein, Total 7.5 g/dL 6.0-8.5 (test code = 2885-2) Albumin (test code 4.7 g/dL 3.8-4.9 = 1751-7) Globulin, Total 2.8 g/dL 1.5-4.5 (test code = 12257-0) A/G Ratio (test 1.7 1.2-2.2 code = 1759-0) Bilirubin, Total 0.6 mg/dL 0.0-1.2 (test code = 1975-2) Alkaline 87 IU/L 48-121 Phosphatase (test code = 6768-6) AST (SGOT) (test 18 IU/L 0-40 code = 1920-8) ALT (SGPT) (test 21 IU/L 0-44 code = 1742-6) [facility] Description: Comp. Metabolic Panel (14)2021-02-24 02:43:00 Test Item Value Reference Range Interpretation Comments Glucose (test code 137 mg/dL 65-99 H = 2345-7) BUN (test code = 18 mg/dL 6-24 3094-0) Creatinine (test 0.95 mg/dL 0.76-1.27 code = 2160-0) eGFR If NonAfricn 92 >59 Am (test code = mL/min/1.73 93255-6) eGFR If Africn Am 106 >59 [facility] currently (test code = mL/min/1.73 [place] [address]-7) compliance with the current recommendations of the National Kidney Foundation. Lab rachel will update rep orting as new guidelin es are published from the NKF-ASN Task force.Performed by:[facility] [place] ([place]) BUN/Creatinine 19 9-20 Ratio (test code = 3097-3) Sodium (test code = 139 mmol/L 968-521 6605-2) Potassium (test 4.6 mmol/L 3.5-5.2 code = 2823-3) Chloride (test code 102 mmol/L 96-106 = 2075-0) Carbon Dioxide, 23 mmol/L 20-29 Total (test code = 2027-9) Calcium (test code 9.8 mg/dL 8.7-10.2 = 85657-5) Protein, Total 7.5 g/dL 6.0-8.5 (test code = 2885-2) Albumin (test code 4.7 g/dL 3.8-4.9 = 1751-7) Globulin, Total 2.8 g/dL 1.5-4.5 (test code = 94054-6) A/G Ratio (test 1.7 1.2-2.2 code = 1759-0) Bilirubin, Total 0.6 mg/dL 0.0-1.2 (test code = 1975-2) Alkaline 87 IU/L 48-121 Phosphatase (test code = 6768-6) AST (SGOT) (test 18 IU/L 0-40 code = 1920-8) ALT (SGPT) (test 21 IU/L 0-44 code = 1742-6) [facility] Description: Comp. Metabolic Panel (2021-02-24 02:43:00 Test Item Value Reference Range Interpretation Comments Glucose (test code 137 mg/dL 65-99 H = 2345-7) BUN (test code = 18 mg/dL 6-24 3094-0) Creatinine (test 0.95 mg/dL 0.76-1.27 code = 2160-0) eGFR If NonAfricn 92 >59 Am (test code = mL/min/1.73 75463-7) eGFR If Africn Am 106 >59 [facility] currently (test code = mL/min/1.73 [place] [address]-7) compliance with the current recommendations of the National Kidney Foundation. Lab rachel will update rep orting as new guidelin es are published from the NKF-ASN Task force.Performed by:[facility] [place] ([place]) BUN/Creatinine 19 9-20 Ratio (test code = 3097-3) Sodium (test code = 139 mmol/L 356-851 0161-2) Potassium (test 4.6 mmol/L 3.5-5.2 code = 2823-3) Chloride (test code 102 mmol/L 96-106 = 2075-0) Carbon Dioxide, 23 mmol/L 20-29 Total (test code = 2027-9) Calcium (test code 9.8 mg/dL 8.7-10.2 = 97662-1) Protein, Total 7.5 g/dL 6.0-8.5 (test code = 2885-2) Albumin (test code 4.7 g/dL 3.8-4.9 = 1751-7) Globulin, Total 2.8 g/dL 1.5-4.5 (test code = 53647-4) A/G Ratio (test 1.7 1.2-2.2 code = 1759-0) Bilirubin, Total 0.6 mg/dL 0.0-1.2 (test code = 1975-2) Alkaline 87 IU/L 48-121 Phosphatase (test code = 6768-6) AST (SGOT) (test 18 IU/L 0-40 code = 1920-8) ALT (SGPT) (test 21 IU/L 0-44 code = 1742-6) [facility] Description: Comp. Metabolic Panel (142021-02-24 02:43:00 Test Item Value Reference Range Interpretation Comments Glucose (test code 137 mg/dL 65-99 H = 2345-7) BUN (test code = 18 mg/dL 6-24 3094-0) Creatinine (test 0.95 mg/dL 0.76-1.27 code = 2160-0) eGFR If NonAfricn 92 >59 Am (test code = mL/min/1.73 40285-2) eGFR If Africn Am 106 >59 [facility] currently (test code = mL/min/1.73 [place] [address]-1) compliance with the current recommendations of the National Kidney Foundation. Lab rachel will update rep orting as new guidelin es are published from the NKF-ASN Task force.Performed by:[facility] [place] ([place]) BUN/Creatinine 19 9-20 Ratio (test code = 3097-3) Sodium (test code = 139 mmol/L 600-143 0550-2) Potassium (test 4.6 mmol/L 3.5-5.2 code = 2823-3) Chloride (test code 102 mmol/L 96-106 = 2075-0) Carbon Dioxide, 23 mmol/L 20-29 Total (test code = 2027-) Calcium (test code 9.8 mg/dL 8.7-10.2 = 22573-9) Protein, Total 7.5 g/dL 6.0-8.5 (test code = 2885-2) Albumin (test code 4.7 g/dL 3.8-4.9 = 1751-7) Globulin, Total 2.8 g/dL 1.5-4.5 (test code = 78292-0) A/G Ratio (test 1.7 1.2-2.2 code = 1759-0) Bilirubin, Total 0.6 mg/dL 0.0-1.2 (test code = 1975-2) Alkaline 87 IU/L 48-121 Phosphatase (test code = 6768-6) AST (SGOT) (test 18 IU/L 0-40 code = 1920-8) ALT (SGPT) (test 21 IU/L 0-44 code = 1742-6) [facility] Description: Comp. Metabolic Panel (2021-02-24 02:43:00 Test Item Value Reference Range Interpretation Comments Glucose (test code 137 mg/dL 65-99 H = 2345-7) BUN (test code = 18 mg/dL 6-24 3094-0) Creatinine (test 0.95 mg/dL 0.76-1.27 code = 2160-0) eGFR If NonAfricn 92 >59 Am (test code = mL/min/1.73 82381-5) eGFR If Africn Am 106 >59 [facility] currently (test code = mL/min/1.73 [place] [address]-6) compliance with the current recommendations of the National Kidney Foundation. Lab rachel will update rep orting as new guidelin es are published from the NKF-ASN Task force.Performed by:[facility] [place] ([place]) BUN/Creatinine 19 9-20 Ratio (test code = 3097-3) Sodium (test code = 139 mmol/L 606-528 0449-2) Potassium (test 4.6 mmol/L 3.5-5.2 code = 2823-3) Chloride (test code 102 mmol/L 96-106 = 2075-0) Carbon Dioxide, 23 mmol/L 20-29 Total (test code = 2027-) Calcium (test code 9.8 mg/dL 8.7-10.2 = 14083-7) Protein, Total 7.5 g/dL 6.0-8.5 (test code = 2885-2) Albumin (test code 4.7 g/dL 3.8-4.9 = 1751-7) Globulin, Total 2.8 g/dL 1.5-4.5 (test code = 98101-2) A/G Ratio (test 1.7 1.2-2.2 code = 1759-0) Bilirubin, Total 0.6 mg/dL 0.0-1.2 (test code = 1975-2) Alkaline 87 IU/L 48-121 Phosphatase (test code = 6768-6) AST (SGOT) (test 18 IU/L 0-40 code = 1920-8) ALT (SGPT) (test 21 IU/L 0-44 code = 1742-6) [facility] Description: Comp. Metabolic Panel (14)2021-02-24 02:43:00 Test Item Value Reference Range Interpretation Comments Glucose (test code 137 mg/dL 65-99 H = 2345-7) BUN (test code = 18 mg/dL 6-24 3094-0) Creatinine (test 0.95 mg/dL 0.76-1.27 code = 2160-0) eGFR If NonAfricn 92 >59 Am (test code = mL/min/1.73 65904-5) eGFR If Africn Am 106 >59 [facility] currently (test code = mL/min/1.73 [place] [address]-7) compliance with the current recommendations of the National Kidney Foundation. Lab rachel will update rep orting as new guidelin es are published from the NKF-ASN Task force.Performed by:[facility] [place] ([place]) BUN/Creatinine 19 9-20 Ratio (test code = 3097-3) Sodium (test code = 139 mmol/L 117-648 3312-2) Potassium (test 4.6 mmol/L 3.5-5.2 code = 2823-3) Chloride (test code 102 mmol/L 96-106 = 2075-0) Carbon Dioxide, 23 mmol/L 20-29 Total (test code = 2027-) Calcium (test code 9.8 mg/dL 8.7-10.2 = 17125-1) Protein, Total 7.5 g/dL 6.0-8.5 (test code = 2885-2) Albumin (test code 4.7 g/dL 3.8-4.9 = 1751-7) Globulin, Total 2.8 g/dL 1.5-4.5 (test code = 72133-1) A/G Ratio (test 1.7 1.2-2.2 code = 1759-0) Bilirubin, Total 0.6 mg/dL 0.0-1.2 (test code = 1975-2) Alkaline 87 IU/L 48-121 Phosphatase (test code = 6768-6) AST (SGOT) (test 18 IU/L 0-40 code = 1920-8) ALT (SGPT) (test 21 IU/L 0-44 code = 1742-6) [facility] Description: Comp. Metabolic Panel (14)2021-02-24 02:43:00 Test Item Value Reference Range Interpretation Comments Glucose (test code 137 mg/dL 65-99 H = 2345-7) BUN (test code = 18 mg/dL 6-24 3094-0) Creatinine (test 0.95 mg/dL 0.76-1.27 code = 2160-0) eGFR If NonAfricn 92 >59 Am (test code = mL/min/1.73 17028-6) eGFR If Africn Am 106 >59 [facility] currently (test code = mL/min/1.73 [place] [address]-5) compliance with the current recommendations of the National Kidney Foundation. Lab rachel will update re porting as new guidelin es are published from the NKF-ASN Task force.Performed by:[facility] [place] ([place]) BUN/Creatinine 19 9-20 Ratio (test code = 3097-3) Sodium (test code = 139 mmol/L 161-426 5157-2) Potassium (test 4.6 mmol/L 3.5-5.2 code = 2823-3) Chloride (test code 102 mmol/L 96-106 = 2075-0) Carbon Dioxide, 23 mmol/L 20-29 Total (test code = 2027-9) Calcium (test code 9.8 mg/dL 8.7-10.2 = 94437-8) Protein, Total 7.5 g/dL 6.0-8.5 (test code = 2885-2) Albumin (test code 4.7 g/dL 3.8-4.9 = 1751-7) Globulin, Total 2.8 g/dL 1.5-4.5 (test code = 29290-7) A/G Ratio (test 1.7 1.2-2.2 code = 1759-0) Bilirubin, Total 0.6 mg/dL 0.0-1.2 (test code = 1975-2) Alkaline 87 IU/L 48-121 Phosphatase (test code = 6768-6) AST (SGOT) (test 18 IU/L 0-40 code = 1920-8) ALT (SGPT) (test 21 IU/L 0-44 code = 1742-6) [facility] Description: Comp. Metabolic Panel (14)2021-02-24 02:43:00 Test Item Value Reference Range Interpretation Comments Glucose (test code 137 mg/dL 65-99 H = 2345-7) BUN (test code = 18 mg/dL 6-24 3094-0) Creatinine (test 0.95 mg/dL 0.76-1.27 code = 2160-0) eGFR If NonAfricn 92 >59 Am (test code = mL/min/1.73 24494-0) eGFR If Africn Am 106 >59 [facility] currently (test code = mL/min/1.73 [place] [address]-5) compliance with the current recommendations of the [employer] Kid[employer] Foundation. Lab rachel will update rep orting as new guidelin es are published from the NKF-ASN Task force.
<br/ >Perfor med by:
Lab Rachel Montilla (HD)

BUN/Creatinine 19 9-20 Ratio (test code = 3097-3) Sodium (test code = 139 mmol/L 134-320 3649-2) Potassium (test 4.6 mmol/L 3.5-5.2 code = 2823-3) Chloride (test code 102 mmol/L 96-106 = 2075-0) Carbon Dioxide, 23 mmol/L 20-29 Total (test code = 2027-) Calcium (test code 9.8 mg/dL 8.7-10.2 = 22067-9) Protein, Total 7.5 g/dL 6.0-8.5 (test code = 2885-2) Albumin (test code 4.7 g/dL 3.8-4.9 = 1751-7) Globulin, Total 2.8 g/dL 1.5-4.5 (test code = 20624-0) A/G Ratio (test 1.7 1.2-2.2 code = 1759-0) Bilirubin, Total 0.6 mg/dL 0.0-1.2 (test code = 1975-2) Alkaline 87 IU/L 48-121 Phosphatase (test code = 6768-6) AST (SGOT) (test 18 IU/L 0-40 code = 1920-8) ALT (SGPT) (test 21 IU/L 0-44 code = 1742-6) [facility] Description: Comp. Metabolic Panel (14)2021-02-24 02:43:00 Test Item Value Reference Range Interpretation Comments Glucose (test code 137 mg/dL 65-99 H = 2345-7) BUN (test code = 18 mg/dL 6-24 3094-0) Creatinine (test 0.95 mg/dL 0.76-1.27 code = 2160-0) eGFR If NonAfricn 92 >59 Am (test code = mL/min/1.73 24177-5) eGFR If Africn Am 106 >59 [facility] currently (test code = mL/min/1.73 [place] [address]-5) compliance with the current recommendations of the National Kidney Foundation. Lab rachel will update rep orting as new guidelin es are published from the NKF-ASN Task force.
<br/ >Perfor med by:
Lab Rachel Montilla (HD)

BUN/Creatinine 19 9-20 Ratio (test code = 3097-3) Sodium (test code = 139 mmol/L 017-841 3625-2) Potassium (test 4.6 mmol/L 3.5-5.2 code = 2823-3) Chloride (test code 102 mmol/L 96-106 = 2075-0) Carbon Dioxide, 23 mmol/L 20-29 Total (test code = 2027-) Calcium (test code 9.8 mg/dL 8.7-10.2 = 01318-8) Protein, Total 7.5 g/dL 6.0-8.5 (test code = 2885-2) Albumin (test code 4.7 g/dL 3.8-4.9 = 1751-7) Globulin, Total 2.8 g/dL 1.5-4.5 (test code = 61808-5) A/G Ratio (test 1.7 1.2-2.2 code = 1759-0) Bilirubin, Total 0.6 mg/dL 0.0-1.2 (test code = 1975-2) Alkaline 87 IU/L 48-121 Phosphatase (test code = 6768-6) AST (SGOT) (test 18 IU/L 0-40 code = 1920-8) ALT (SGPT) (test 21 IU/L 0-44 code = 1742-6) [facility] Description: Comp. Metabolic Panel (14)2021-02-24 02:43:00 Test Item Value Reference Range Interpretation Comments Glucose (test code 137 mg/dL 65-99 H = 2345-7) BUN (test code = 18 mg/dL 6-24 3094-0) Creatinine (test 0.95 mg/dL 0.76-1.27 code = 2160-0) eGFR If NonAfricn 92 >59 Am (test code = mL/min/1.73 24304-4) eGFR If Africn Am 106 >59 [facility] currently (test code = mL/min/1.73 [place] [address]-2) compliance with the current recommendations of the National Kidney Foundation. Lab rachel will update rep orting as new guidelin es are published from the NKF-ASN Task force.
<br/ >Perfor med by:
Lab Rachel Montilla (HD)

BUN/Creatinine 19 9-20 Ratio (test code = 3097-3) Sodium (test code = 139 mmol/L 392-784 0427-2) Potassium (test 4.6 mmol/L 3.5-5.2 code = 2823-3) Chloride (test code 102 mmol/L 96-106 = 2075-0) Carbon Dioxide, 23 mmol/L 20-29 Total (test code = 2027-9) Calcium (test code 9.8 mg/dL 8.7-10.2 = 19351-4) Protein, Total 7.5 g/dL 6.0-8.5 (test code = 2885-2) Albumin (test code 4.7 g/dL 3.8-4.9 = 1751-7) Globulin, Total 2.8 g/dL 1.5-4.5 (test code = 13088-4) A/G Ratio (test 1.7 1.2-2.2 code = 1759-0) Bilirubin, Total 0.6 mg/dL 0.0-1.2 (test code = 1975-2) Alkaline 87 IU/L 48-121 Phosphatase (test code = 6768-6) AST (SGOT) (test 18 IU/L 0-40 code = 1920-8) ALT (SGPT) (test 21 IU/L 0-44 code = 1742-6) [facility] Description: Comp. Metabolic Panel (2021-02-24 02:43:00 Test Item Value Reference Range Interpretation Comments Glucose (test code 137 mg/dL 65-99 H = 2345-7) BUN (test code = 18 mg/dL 6-24 3094-0) Creatinine (test 0.95 mg/dL 0.76-1.27 code = 2160-0) eGFR If NonAfricn 92 >59 Am (test code = mL/min/1.73 43296-0) eGFR If Africn Am 106 >59 [facility] currently (test code = mL/min/1.73 [place] [address]-0) compliance with the current recommendations of the National Kid[employer] Foundation. Lab rachel will update rep orting as new guidelin es are published from the NKF-ASN Task force.
<br/ >Perfor med by:
Lab Rachel Montilla (HD)

BUN/Creatinine 19 9-20 Ratio (test code = 3097-3) Sodium (test code = 139 mmol/L 911-524 0646-2) Potassium (test 4.6 mmol/L 3.5-5.2 code = 2823-3) Chloride (test code 102 mmol/L 96-106 = 2075-0) Carbon Dioxide, 23 mmol/L 20-29 Total (test code = 8-9) Calcium (test code 9.8 mg/dL 8.7-10.2 = 63699-0) Protein, Total 7.5 g/dL 6.0-8.5 (test code = 2885-2) Albumin (test code 4.7 g/dL 3.8-4.9 = 1751-7) Globulin, Total 2.8 g/dL 1.5-4.5 (test code = 51064-6) A/G Ratio (test 1.7 1.2-2.2 code = 1759-0) Bilirubin, Total 0.6 mg/dL 0.0-1.2 (test code = 1975-2) Alkaline 87 IU/L 48-121 Phosphatase (test code = 6768-6) AST (SGOT) (test 18 IU/L 0-40 code = 1920-8) ALT (SGPT) (test 21 IU/L 0-44 code = 1742-6) [facility] SHOULDER RIGHT 2 [id number] 14:51:15 [facility] [place] [facility] : 1970 Sex: MExam: X-ray right shoulder 2 viewsHISTORY: Pain in the right shoulder.Location: [id number]:No fracture or dislocation is noted. No osseous lesions seen.IMPRESSION:1. Unremarkable exam.Electronically signed by: Tray Montelongo MD 02/23/2021 2:51 PM CDT [id number] Description: Testosterone,Free and Total 2020-12-15 03:45:00 Test Item Value Reference Range Interpretation Comments Testosterone, Serum (test code = 628 ng/dL 666-956 7707-8) Free Testosterone(Direct) (test 6.8 pg/mL 7.2-24.0 L code = 2991-8) [facility]: Testosterone,Free and [id number] 03:45:00 Test Item Value Reference Range Interpretation Comments Testosterone, Serum (test code = 628 ng/dL 253-708 4807-8) Free Testosterone(Direct) (test 6.8 pg/mL 7.2-24.0 L code = 2991-8) [facility] Description: Testosterone,Free and [id number] 03:45:00 Test Item Value Reference Range Interpretation Comments Testosterone, Serum (test code = 628 ng/dL 290-069 7953-8) Free Testosterone(Direct) (test 6.8 pg/mL 7.2-24.0 L code = 2991-8) [facility]: Testosterone,Free and [id number] 03:45:00 Test Item Value Reference Range Interpretation Comments Testosterone, Serum (test code = 628 ng/dL 658-528 6049-8) Free Testosterone(Direct) (test 6.8 pg/mL 7.2-24.0 L code = 2991-8) [facility] Description: Testosterone,Free and [id number] 03:45:00 Test Item Value Reference Range Interpretation Comments Testosterone, Serum (test code = 628 ng/dL 745-436 6573-8) Free Testosterone(Direct) (test 6.8 pg/mL 7.2-24.0 L code = 2991-8) [facility] Description: Testosterone,Free and [id number] 03:45:00 Test Item Value Reference Range Interpretation Comments Testosterone, Serum (test code = 628 ng/dL 713-646 4118-8) Free Testosterone(Direct) (test 6.8 pg/mL 7.2-24.0 L code = 2991-8) [facility] Description: Testosterone,Free and [id number] 03:45:00 Test Item Value Reference Range Interpretation Comments Testosterone, Serum (test code = 628 ng/dL 874-415 8143-8) Free Testosterone(Direct) (test 6.8 pg/mL 7.2-24.0 L code = 2991-8) [facility] Description: Testosterone,Free and [id number] 03:45:00 Test Item Value Reference Range Interpretation Comments Testosterone, Serum 628 ng/dL 264-916 Adult ma le reference (test code = 2986-8) interva l is based on a population ofhe althy nonobese males (BMI <30) between 19 and 39 years old.hansa Marshall t.al. JCEM 2017,102;1 161-1173. PMID: [id number]. Effective December 19, 2020 Testosterone, S shy reference inter magui will be changing to: Age Male Female 0 - 30 d ays 0 - 650 4 - 190 1 - 5 months 0 - 650 0 - 42 6 months 0 - 36 0 - 42 7 m- 1 year 0 - 36 1 - 26 2 - 5 years 0 - 36 3 - 33 6 - 8 years 0 - 36 3 - 25 9 - 10 years 0 - 21 1 - 33 11 years 1 - 16 1 5 - 58 12 years 2 - 52 1 5 - 58 13 - 15 years 2 8 - 656 71 16 - 17 years 150 - 785 12 - 71 18 - 19 years 150 - 785 13 - 71 20 - 30 yea rs 264 - 916 13 - 71 31 - 40 years 264 - 916 8 - 60 41 - 60 years 2 64 - 916 4 - 50 61 - 80 years 264 - 916 3 - 6 7 >80 years 264 - 916 2 - 45Performed by: [facility] ([facility]) Free 6.8 pg/mL 7.2-24.0 L Testosterone(Direct) (test code = 2991-8) [facility] Description: Testosterone,Free and [id number] 03:45:00 Test Item Value Reference Range Interpretation Comments Testosterone, Serum 628 ng/dL 264-916 Adult ma le reference (test code = 2986-8) interva l is based on a population ofhe althy nonobese males (BMI <30) between 19 and 39 years old.hansa Marshall.al. JCEM 2017,102;1 161-1173. PMID: [id number]. Effective December 19, 2020 Testosterone, S shy reference inter magui will be changing to: Age Male Female 0 - 30 d ays 0 - 650 4 - 190 1 - 5 months 0 - 650 0 - 42 6 months 0 - 36 0 - 42 7m- 1 year 0 - 36 1 - 26 2 - 5 years 0 - 36 3 - 33 6 - 8 years 0 - 36 3 - 25 9 - 10 years 0 - 21 1 - 33 11 years 1 - 16 1 5 - 58 12 years 2 - 5 21 5 - 58 13 - 15 years 2 8 - 656 - 71 16 - 17 years 150 - 785 71 18 - 19 years 150 - 785 71 20 - 30 year s 264 - 916 13 - 71 31 - 40 years 264 - 916 8 - 60 41 - 60 years 2 64 - 916 4 - 50 61 - 80 years 264 - 916 3 - 67 >8 0 years 264 - 916 2 - 45Performed by: [facility] ([place]) Free 6.8 pg/mL 7.2-24.0 L Testosterone(Direct) (test code = 2991-8) [facility] Description: Testosterone,Free and Rhuck5827-80-28 03:45:00 Test Item Value Reference Range Interpretation Comments Testosterone, Serum 628 ng/dL 264-916 Adult ma le reference (test code = 2986-8) interva l is based on a population ofhe althy nonobese males (BMI <30) between 19 and 39 years old.hansa Marshall.al. JCEM 2017,102;1 161-1173. PMID: [id number]. Effective December 19, 2020 Testosterone, S shy reference inter magui will be changing to: Age Male Female 0 - 30 days 0 - 650 4 - 190 1 - 5 months 0 - 650 0 - 42 6 months 0 - 36 0 - 42 7m- 1 year 0 - 36 1 - 26 2 - 5 years 0 - 36 3 - 33 6 - 8 years 0 - 3 6 3 - 25 9 - 10 years 0 - 21 1 - 33 11 years 1 - 161 5 - 58 12 years 2 - 521 5 - 58 13 - 15 year s 28 - 656 12 - 71 16 - 17 years 150 - 785 12 - 71 18 - 19 years 1 50 - 785 13 - 71 20 - 30 years 264 - 916 13 - 71 31 - 40 years 264 - 916 8 - 60 41 - 60 year s 264 - 916 4 - 50 61 - 80 years 264 - 916 3 - 6 7 >80 years 264 - 91 6 2 - 45Performed by: [facility] () Free 6.8 pg/mL 7.2-24.0 L Testosterone(Direct) (test code = 2991-8) [facility] Description: Testosterone,Free and [id number] 03:45:00 Test Item Value Reference Range Interpretation Comments Testosterone, Serum 628 ng/dL 264-916 Adult ma le reference (test code = 2986-8) interva l is based on a population ofhe althy nonobese males (BMI <30) between 19 and 39 years old.hansa Marshall.al. JCEM 2017,102;1 161-1173. PMID: [id number]. Effective December 19, 2020 Testosterone, S shy reference inter magui will be changing to: Age Male Female 0 - 30 d ays 0 - 650 4 - 190 1 - 5 months 0 - 650 0 - 42 6 months 0 - 36 0 - 42 7m- 1 year 0 - 36 1 - 26 2 - 5 years 0 - 3 6 3 - 33 6 - 8 years 0 - 36 3 - 25 9 - 10 years 0 - 21 1 - 33 11 years 1 - 161 5 - 58 12 years 2 - 521 5 - 58 13 - 15 ye ars 28 - 656 12 - 71 16 - 17 years 150 - 785 12 - 71 18 - 19 years 1 50 - 785 13 - 71 20 - 30 years 264 - 916 13 - 71 31 - 40 years 264 - 916 8 - 60 41 - 60 year s 264 - 916 4 - 50 61 - 80 years 264 - 916 3 - 67 >80 years 264 - 916 2 - 45Performed by: [facility] ([place]) Free 6.8 pg/mL 7.2-24.0 L Testosterone(Direct) (test code = 2991-8) [facility] Description: Testosterone,Free and Cqgpm2834-71-56 03:45:00 Test Item Value Reference Range Interpretation Comments Testosterone, Serum 628 ng/dL 264-916 Adult ma le reference (test code = 2986-8) interva l is based on a population ofhe althy nonobese males (BMI <30) between 19 and 39 years old.hansa Marshall t.al. JCEM 2017,102;1 161-1173. PMID: [id number]. Effective December 19, 2020 Testosterone, S shy reference inter magui will be changing to: Age Male Female 0 - 30 d ays 0 - 650 4 - 190 1 - 5 months 0 - 650 0 - 42 6 months 0 - 36 0 - 42 7 m- 1 year 0 - 36 1 - 26 2 - 5 years 0 - 36 3 - 33 6 - 8 years 0 - 36 3 - 25 9 - 10 years 0 - 21 1 - 33 11 years 1 - 16 1 5 - 58 12 years 2 - 52 1 5 - 58 13 - 15 years 2 8 - 656 12 - 71 16 - 17 years 150 - 785 12 - 71 18 - 19 years 150 - 785 13 - 71 20 - 30 yea rs 264 - 916 13 - 71 31 - 40 years 264 - 916 8 - 60 41 - 60 years 2 64 - 916 4 - 50 61 - 80 years 264 - 916 3 - 6 7 >80 years 264 - 916 2 - 45Performed by: [facility] ([place]) Free 6.8 pg/mL 7.2-24.0 L Testosterone(Direct) (test code = 2991-8) [facility] Description: Testosterone,Free and Prrod2733-92-10 03:45:00 Test Item Value Reference Range Interpretation Comments Testosterone, Serum 628 ng/dL 264-916 Adult ma le reference (test code = 2986-8) interva l is based on a population ofhe althy nonobese males (BMI <30) between 19 and 39 years old.hansa Marshall.al. JCEM 2017,102;1 161-1173. PMID: [id number]. Effective December 19, 2020 Testosterone, S shy reference inter magui will be changing to: Age Male Female 0 - 30 days 0 - 650 4 - 190 1 - 5 months 0 - 650 0 - 42 6 months 0 - 36 0 - 42 7 m- 1 year 0 - 36 1 - 26 2 - 5 years 0 - 36 3 - 33 6 - 8 years 0 - 36 3 - 25 9 - 10 years 0 - 21 1 - 33 11 years 1 - 16 1 5 - 58 12 years 2 - 52 1 5 - 58 13 - 15 years 2 8 - 656 12 - 71 16 - 17 years 150 - 785 12 - 71 18 - 19 years 150 - 785 13 - 71 20 - 30 year s 264 - 916 13 - 71 31 - 40 years 264 - 916 8 - 60 41 - 60 years 2 64 - 916 4 - 50 61 - 80 years 264 - 916 3 - 67 >8 0 years 264 - 916 2 - 45Performed by: [facility] () Free 6.8 pg/mL 7.2-24.0 L Testosterone(Direct) (test code = 2991-8) [facility] Description: Testosterone,Free and [id number] 03:45:00 Test Item Value Reference Range Interpretation Comments Testosterone, Serum 628 ng/dL 264-916 Adult ma le reference (test code = 2986-8) interva l is based on a population ofhe althy nonobese males (BMI <30) between 19 and 39 years old.hansa Marshall.al. JCEM 2017,102;1 161-1173. PMID: [id number]. Effective December 19, 2020 Testosterone, S shy reference inter magui will be changing to: Age Male Female 0 - 30 days 0 - 650 4 - 190 1 - 5 months 0 - 650 0 - 42 6 months 0 - 36 0 - 42 7m- 1 year 0 - 36 1 - 26 2 - 5 years 0 - 36 3 - 33 6 - 8 years 0 - 3 6 3 - 25 9 - 10 years 0 - 21 1 - 33 11 years 1 - 161 5 - 58 12 years 2 - 521 5 - 58 13 - 15 year s 28 - 656 - 71 16 - 17 years 150 - 785 - 71 18 - 19 years 1 50 - 785 - 71 20 - 30 years 264 - 916 13 - 71 31 - 40 years 264 - 916 8 - 60 41 - 60 year s 264 - 916 4 - 50 61 - 80 years 264 - 916 3 - 6 7 >80 years 264 - 916 2 - 45Performed by: [facility] ([place]) Free 6.8 pg/mL 7.2-24.0 L Testosterone(Direct) (test code = 2991-8) [facility] Description: Testosterone,Free and Wyxqa8869-03-15 03:45:00 Test Item Value Reference Range Interpretation Comments Testosterone, Serum 628 ng/dL 264-916 Adult ma le reference (test code = 2986-8) interva l is based on a population ofhe althy nonobese males (BMI <30) between 19 and 39 years old.hansa Marshall t.al. JCEM 2017,102;1 161-1173. PMID: [id number]. Effective December 19, 2020 Testosterone, S shy reference inter magui will be changing to: Age Male Female 0 - 30 d ays 0 - 650 4 - 190 1 - 5 months 0 - 650 0 - 42 6 months 0 - 36 0 - 42 7m- 1 year 0 - 36 1 - 26 2 - 5 years 0 - 3 6 3 - 33 6 - 8 years 0 - 36 3 - 25 9 - 10 years 0 - 21 1 - 33 11 years 1 - 161 5 - 58 12 years 2 - 521 5 - 58 13 - 15 ye ars 28 - 656 - 71 16 - 17 years 150 - 785 12 - 71 18 - 19 years 1 50 - 785 - 71 20 - 30 years 264 - 916 13 - 71 31 - 40 years 264 - 916 8 - 60 41 - 60 year s 264 - 916 4 - 50 61 - 80 years 264 - 916 3 - 6 7 >80 years 264 - 916 2 - 45Performed by: [facility] ([place]) Free 6.8 pg/mL 7.2-24.0 L Testosterone(Direct) (test code = 2991-8) [facility] Description: Testosterone,Free and [id number] 03:45:00 Test Item Value Reference Range Interpretation Comments Testosterone, Serum 628 ng/dL 264-916 Adult ma le reference (test code = 2986-8) interva l is based on a population ofhe althy nonobese males (BMI <30) between 19 and 39 years old.hansa Marshall t.al. JCEM 2017,102;1 161-1173. PMID: [id number]. Effective December 19, 2020 Testosterone, S shy reference inter magui will be changing to: Age Male Female 0 - 30 d ays 0 - 650 4 - 190 1 - 5 months 0 - 650 0 - 42 6 months 0 - 36 0 - 42 7 m- 1 year 0 - 36 1 - 26 2 - 5 years 0 - 36 3 - 33 6 - 8 years 0 - 36 3 - 25 9 - 10 years 0 - 21 1 - 33 11 years 1 - 16 1 5 - 58 12 years 2 - 52 1 5 - 58 13 - 15 years 2 8 - 656 12 - 71 16 - 17 years 150 - 785 12 - 71 18 - 19 years 150 - 785 13 - 71 20 - 30 yea rs 264 - 916 13 - 71 31 - 40 years 264 - 916 8 - 60 41 - 60 years 2 64 - 916 4 - 50 61 - 80 years 264 - 916 3 - 67 >8 0 years 264 - 916 2 - 45Performed by: [facility] ([place]) Free 6.8 pg/mL 7.2-24.0 L Testosterone(Direct) (test code = 2991-8) [facility] Description: Testosterone,Free and Ssvig2231-24-99 03:45:00 Test Item Value Reference Range Interpretation Comments Testosterone, Serum (test code = 628 ng/dL 120-531 4182-8) Free Testosterone(Direct) (test 6.8 pg/mL 7.2-24.0 L code = 2991-8) [facility] Description: Testosterone,Free and Hbqpl5844 03:45:00 Test Item Value Reference Range Interpretation Comments Testosterone, Serum (test code = 628 ng/dL 740-302 3800-8) Free Testosterone(Direct) (test 6.8 pg/mL 7.2-24.0 L code = 2991-8) [facility] Description: Testosterone,Free and Pxakf6165-27-12 03:45:00 Test Item Value Reference Range Interpretation Comments Testosterone, Serum (test code = 628 ng/dL 219-359 1762-8) Free Testosterone(Direct) (test 6.8 pg/mL 7.2-24.0 L code = 2991-8) [facility] Description: Testosterone,Free and [id number] 03:45:00 Test Item Value Reference Range Interpretation Comments Testosterone, Serum (test code = 628 ng/dL 333-213 7807-8) Free Testosterone(Direct) (test 6.8 pg/mL 7.2-24.0 L code = 2991-8) [facility] Description: Hemoglobin A1c/Hemoglobin.total in Blood 2020-11-25 08:30:00 Test Item Value Reference Range Interpretation Comments Hemoglobin A1c (test code 6.6 % 4.8-5.6 H . Prediabetes: 5.7 - = 4548-4) 6.4 Diabetes: > 6.4 Glycemic contro l for adults with suzanne betes: <7.0

P erformed by:
[facility] ()

[facility] Description: Hemoglobin A1c/Hemoglobin.total in Blood 2020-11-25 08:30:00 Test Item Value Reference Range Interpretation Comments Hemoglobin A1c (test code 6.6 % 4.8-5.6 H . Prediabetes: 5.7 - = 4548-4) 6.4 Diabetes: > 6.4 Glycemic contro l for adults with suzanne betes: <7.0

P erformed by:
[facility] ()

[facility] Description: Hemoglobin A1c/Hemoglobin.total in Blood 2020-11-25 08:30:00 Test Item Value Reference Range Interpretation Comments Hemoglobin A1c (test code 6.6 % 4.8-5.6 H . Prediabetes: 5.7 - = 4548-4) 6.4 Diabetes: > 6.4 Glycemic contro l for adults with suzanne betes: <7.0

P erformed by:
[facility] ([place])

[facility] Description: Hemoglobin A1c/Hemoglobin.total in Blood 2020-11-25 08:30:00 Test Item Value Reference Range Interpretation Comments Hemoglobin A1c (test code 6.6 % 4.8-5.6 H . Prediabetes: 5.7 - = 4548-4) 6.4 Diabetes: > 6.4 Glycemic contro l for adults with suzanne betes: <7.0

P erformed by:
[facility] ([place])

[facility] Description: Hemoglobin A1c/Hemoglobin.total in Blood 2020-11-25 08:30:00 Test Item Value Reference Range Interpretation Comments Hemoglobin A1c (test code 6.6 % 4.8-5.6 H . Prediabetes: 5.7 - = 4548-4) 6.4 Diabetes: > 6.4 Glycemic contro l for adults with suzanne betes: <7.0

P erformed by:
[facility] ([place])

[facility] Description: Hemoglobin A1c/Hemoglobin.total in Blood 2020-11-25 08:30:00 Test Item Value Reference Range Interpretation Comments Hemoglobin A1c (test code 6.6 % 4.8-5.6 H . Prediabetes: 5.7 - = 4548-4) 6.4 Diabetes: > 6.4 Glycemic contro l for adults with suzanne betes: <7.0

P erformed by:
[facility] ([place])

[facility] Description: Hemoglobin A1c/Hemoglobin.total in Blood 2020-11-25 08:30:00 Test Item Value Reference Range Interpretation Comments Hemoglobin A1c (test code 6.6 % 4.8-5.6 H . Prediabetes: 5.7 - = 4548-4) 6.4 Diabetes: > 6.4 Glycemic contro l for adults with suzanne betes: <7.0

P erformed by:
[facility] ([place])

[facility] Description: Hemoglobin A1c/Hemoglobin.total in Blood 2020-11-25 08:30:00 Test Item Value Reference Range Interpretation Comments Hemoglobin A1c (test code 6.6 % 4.8-5.6 H . Prediabetes: 5.7 - = 4548-4) 6.4 Diabetes: > 6.4 Glycemic contro l for adults with suzanne betes: <7.0Performed by:[facility] ([place]) [facility] Description: Hemoglobin A1c/Hemoglobin.total in Blood 2020-11-25 08:30:00 Test Item Value Reference Range Interpretation Comments Hemoglobin A1c (test code 6.6 % 4.8-5.6 H . Prediabetes: 5.7 - = 4548-4) 6.4 Diabetes: > 6.4 Glycemic contro l for adults with suzanne betes: <7.0Performed by:[facility] ([place]) [facility] Description: Hemoglobin A1c/Hemoglobin.total in Blood 2020-11-25 08:30:00 Test Item Value Reference Range Interpretation Comments Hemoglobin A1c (test code 6.6 % 4.8-5.6 H . Prediabetes: 5.7 - = 4548-4) 6.4 Diabetes: > 6.4 Glycemic contro l for adults with suzanne betes: <7.0Performed by:[facility] ([place]) [facility] Description: Hemoglobin A1c/Hemoglobin.total in Blood 2020-11-25 08:30:00 Test Item Value Reference Range Interpretation Comments Hemoglobin A1c (test code 6.6 % 4.8-5.6 H . Prediabetes: 5.7 - = 4548-4) 6.4 Diabetes: > 6.4 Glycemic contro l for adults with suzanne betes: <7.0Performed by:[facility] ([place]) [facility] Description: Hemoglobin A1c/Hemoglobin.total in Blood 2020-11-25 08:30:00 Test Item Value Reference Range Interpretation Comments Hemoglobin A1c (test code 6.6 % 4.8-5.6 H . Prediabetes: 5.7 - = 4548-4) 6.4 Diabetes: > 6.4 Glycemic contro l for adults with suzanne betes: <7.0Performed by:[facility] ([place]) [facility] Description: Hemoglobin A1c/Hemoglobin.total in Blood 2020-11-25 08:30:00 Test Item Value Reference Range Interpretation Comments Hemoglobin A1c (test code 6.6 % 4.8-5.6 H . Prediabetes: 5.7 - = 4548-4) 6.4 Diabetes: > 6.4 Glycemic contro l for adults with suzanne betes: <7.0Performed by:[facility] ([place]) [facility] Description: Hemoglobin A1c/Hemoglobin.total in Blood 2020-11-25 08:30:00 Test Item Value Reference Range Interpretation Comments Hemoglobin A1c (test code 6.6 % 4.8-5.6 H . Prediabetes: 5.7 - = 4548-4) 6.4 Diabetes: > 6.4 Glycemic contro l for adults with suzanne betes: <7.0Performed by:[facility] ([place]) [facility] Description: Hemoglobin A1c/Hemoglobin.total in Blood 2020-11-25 08:30:00 Test Item Value Reference Range Interpretation Comments Hemoglobin A1c (test code 6.6 % 4.8-5.6 H . Prediabetes: 5.7 - = 4548-4) 6.4 Diabetes: > 6.4 Glycemic contro l for adults with suzanne betes: <7.0Performed by:[facility] ([place]) [facility] Description: Hemoglobin A1c/Hemoglobin.total in Blood 2020-11-25 08:30:00 Test Item Value Reference Range Interpretation Comments Hemoglobin A1c (test code 6.6 % 4.8-5.6 H . Prediabetes: 5.7 - = 4548-4) 6.4 Diabetes: > 6.4 Glycemic contro l for adults with suzanne betes: <7.0Performed by:[facility] ([place]) [facility] Description: Hemoglobin A1c/Hemoglobin.total in Blood 2020-11-25 08:30:00 Test Item Value Reference Range Interpretation Comments Hemoglobin A1c (test code 6.6 % 4.8-5.6 H . Prediabetes: 5.7 - = 4548-4) 6.4 Diabetes: > 6.4 Glycemic contro l for adults with suzanne betes: <7.0

P erformed by:
[facility] ()

[facility] Description: Hemoglobin A1c/Hemoglobin.total in Blood 2020-11-25 08:30:00 Test Item Value Reference Range Interpretation Comments Hemoglobin A1c (test code 6.6 % 4.8-5.6 H . Prediabetes: 5.7 - = 4548-4) 6.4 Diabetes: > 6.4 Glycemic contro l for adults with suzanne betes: <7.0

P erformed by:
[facility] ()

[facility] Description: Hemoglobin A1c/Hemoglobin.total in Blood 2020-11-25 08:30:00 Test Item Value Reference Range Interpretation Comments Hemoglobin A1c (test code 6.6 % 4.8-5.6 H . Prediabetes: 5.7 - = 4548-4) 6.4 Diabetes: > 6.4 Glycemic contro l for adults with suzanne betes: <7.0

P erformed by:
[facility] ()

[facility] Description: Hemoglobin A1c/Hemoglobin.total in Blood 2020-11-25 08:30:00 Test Item Value Reference Range Interpretation Comments Hemoglobin A1c (test code 6.6 % 4.8-5.6 H . Prediabetes: 5.7 - = 4548-4) 6.4 Diabetes: > 6.4 Glycemic contro l for adults with suzanne betes: <7.0

P erformed by:
[facility] ()

[facility] Description: Testosterone,Free and Vajxb6457-97-77 02:46:00 Test Item Value Reference Range Interpretation Comments Testosterone, Serum (test code = 565 ng/dL 045-185 2969-8) Free Testosterone(Direct) (test 6.3 pg/mL 7.2-24.0 L code = 2991-8) [facility] Description: Testosterone,Free and Npqeg3488-20-63 02:46:00 Test Item Value Reference Range Interpretation Comments Testosterone, Serum (test code = 565 ng/dL 412-123 2206-8) Free Testosterone(Direct) (test 6.3 pg/mL 7.2-24.0 L code = 2991-8) [facility] Description: Testosterone,Free and Ycrnd7779-27-82 02:46:00 Test Item Value Reference Range Interpretation Comments Testosterone, Serum (test code = 565 ng/dL 795-231 0846-8) Free Testosterone(Direct) (test 6.3 pg/mL 7.2-24.0 L code = 2991-8) [facility] Description: Testosterone,Free and Fzxsg7039-84-47 02:46:00 Test Item Value Reference Range Interpretation Comments Testosterone, Serum (test code = 565 ng/dL 144-003 7252-8) Free Testosterone(Direct) (test 6.3 pg/mL 7.2-24.0 L code = 2991-8) [facility] Description: Testosterone,Free and Cvvyw1739-60-54 02:46:00 Test Item Value Reference Range Interpretation Comments Testosterone, Serum (test code = 565 ng/dL 782-454 2815-8) Free Testosterone(Direct) (test 6.3 pg/mL 7.2-24.0 L code = 2991-8) [facility] Description: Testosterone,Free and Zrkyj1913-08-55 02:46:00 Test Item Value Reference Range Interpretation Comments Testosterone, Serum (test code = 565 ng/dL 076-722 6356-8) Free Testosterone(Direct) (test 6.3 pg/mL 7.2-24.0 L code = 2991-8) [facility] Description: Testosterone,Free and [id number] 02:46:00 Test Item Value Reference Range Interpretation Comments Testosterone, Serum (test code = 565 ng/dL 155-858 0625-8) Free Testosterone(Direct) (test 6.3 pg/mL 7.2-24.0 L code = 2991-8) [facility] Description: Testosterone,Free and Itxph1034-90-40 02:46:00 Test Item Value Reference Range Interpretation Comments Testosterone, Serum 565 ng/dL 264-916 Adult ma le reference (test code = 2986-8) interva l is based on a population ofhe althy nonobese males (BMI <30) between 19 and 39 years old.hansa Marshall.al. JCEM 2017,102;1 161-1173. PMID: [id number]. Effective December 19, 2020 Testosterone, S shy reference inter magui will be changing to: Age Male Female 0 - 30 d ays 0 - 650 4 - 190 1 - 5 months 0 - 650 0 - 42 6 months 0 - 36 0 - 42 7m- 1 year 0 - 36 1 - 26 2 - 5 years 0 - 3 6 3 - 33 6 - 8 years 0 - 36 3 - 25 9 - 10 years 0 - 21 1 - 33 11 years 1 - 161 5 - 58 12 years 2 - 521 5 - 58 13 - 15 ye ars 28 - 656 12 - 71 16 - 17 years 150 - 785 12 - 71 18 - 19 years 1 50 - 785 13 - 71 20 - 30 years 264 - 916 13 - 71 31 - 40 years 264 - 916 8 - 60 41 - 60 year s 264 - 916 4 - 50 61 - 80 years 264 - 916 3 - 6 7 >80 years 264 - 916 2 - 45Performed by: [facility] ([place]) Free 6.3 pg/mL 7.2-24.0 L Testosterone(Direct) (test code = 2991-8) [facility] Description: Testosterone,Free and Rtmgk9501-41-20 02:46:00 Test Item Value Reference Range Interpretation Comments Testosterone, Serum 565 ng/dL 264-916 Adult ma le reference (test code = 2986-8) interva l is based on a population ofhe althy nonobese males (BMI <30) between 19 and 39 years old.hansa Marshall.al. JCEM 2017,102;1 161-1173. PMID: [id number]. Effective December 19, 2020 Testosterone, S shy reference inter magui will be changing to: Age Male Female 0 - 30 d ays 0 - 650 4 - 190 1 - 5 months 0 - 650 0 - 42 6 months 0 - 36 0 - 42 7m- 1 year 0 - 36 1 - 26 2 - 5 years 0 - 36 3 - 33 6 - 8 years 0 - 36 3 - 25 9 - 10 years 0 - 21 1 - 33 11 years 1 - 16 1 5 - 58 12 years 2 - 52 1 5 - 58 13 - 15 years 2 8 - 656 12 - 71 16 - 17 years 150 - 785 12 - 71 18 - 19 years 150 - 785 13 - 71 20 - 30 year s 264 - 916 13 - 71 31 - 40 years 264 - 916 8 - 60 41 - 60 years 2 64 - 916 4 - 50 61 - 80 years 264 - 916 3 - 67 >8 0 years 264 - 916 2 - 45Performed by: [facility] ([place]) Free 6.3 pg/mL 7.2-24.0 L Testosterone(Direct) (test code = 2991-8) [facility] Description: Testosterone,Free and [id number] 02:46:00 Test Item Value Reference Range Interpretation Comments Testosterone, Serum 565 ng/dL 264-916 Adult ma le reference (test code = 2986-8) interva l is based on a population ofhe althy nonobese males (BMI <30) between 19 and 39 years old.hansa Marshall t.al. JCEM 2017,102;1 161-1173. PMID: [id number]. Effective December 19, 2020 Testosterone, S shy reference inter magui will be changing to: Age Male Female 0 - 30 days 0 - 650 4 - 190 1 - 5 months 0 - 650 0 - 42 6 months 0 - 36 0 - 42 7m- 1 year 0 - 36 1 - 26 2 - 5 years 0 - 36 3 - 33 6 - 8 years 0 - 3 6 3 - 25 9 - 10 years 0 - 21 1 - 33 11 years 1 - 161 5 - 58 12 years 2 - 521 5 - 58 13 - 15 year s 28 - 656 12 - 71 16 - 17 years 150 - 785 12 - 71 18 - 19 years 1 50 - 785 13 - 71 20 - 30 years 264 - 916 13 - 71 31 - 40 years 264 - 916 8 - 60 41 - 60 yea rs 264 - 916 4 - 50 61 - 80 years 264 - 916 3 - 6 7 >80 years 264 - 916 2 - 45Performed by: [facility] ([place]) Free 6.3 pg/mL 7.2-24.0 L Testosterone(Direct) (test code = 2991-8) [facility] Description: Testosterone,Free and [id number] 02:46:00 Test Item Value Reference Range Interpretation Comments Testosterone, Serum 565 ng/dL 264-916 Adult ma le reference (test code = 2986-8) interva l is based on a population ofhe althy nonobese males (BMI <30) between 19 and 39 years old.hansa Marshall.al. JCEM 2017,102;1 161-1173. PMID: [id number]. Effective December 19, 2020 Testosterone, S shy reference inter magui will be changing to: Age Male Female 0 - 30 d ays 0 - 650 4 - 190 1 - 5 months 0 - 650 0 - 42 6 months 0 - 36 0 - 42 7 m- 1 year 0 - 36 1 - 26 2 - 5 years 0 - 36 3 - 33 6 - 8 years 0 - 36 3 - 25 9 - 10 years 0 - 21 1 - 33 11 years 1 - 1 61 5 - 58 12 years 2 - 52 1 5 - 58 13 - 15 years 2 8 - 656 12 - 71 16 - 17 years 150 - 785 12 - 71 18 - 19 years 150 - 785 13 - 71 20 - 30 year s 264 - 916 13 - 71 31 - 40 years 264 - 916 8 - 60 41 - 60 years 2 64 - 916 4 - 50 61 - 80 years 264 - 916 3 - 67 > 80 years 264 - 916 2 - 45Performed by: [facility] ([place]) Free 6.3 pg/mL 7.2-24.0 L Testosterone(Direct) (test code = 2991-8) [facility] Description: Testosterone,Free and Zkuax8344-12-31 02:46:00 Test Item Value Reference Range Interpretation Comments Testosterone, Serum 565 ng/dL 264-916 Adult ma le reference (test code = 2986-8) interva l is based on a population ofhe althy nonobese males (BMI <30) between 19 and 39 years old.Travison, e t.al. JCEM 2017,102;1 161-1173. PMID: [id number]. Effective December 19, 2020 Testosterone, S shy reference inter magui will be changing to: Age Male Female 0 - 30 d ays 0 - 650 4 - 190 1 - 5 months 0 - 650 0 - 42 6 months 0 - 36 0 - 42 7m- 1 year 0 - 36 1 - 26 2 - 5 years 0 - 36 3 - 33 6 - 8 years 0 - 3 6 3 - 25 9 - 10 years 0 - 21 1 - 33 11 years 1 - 161 5 - 58 12 years 2 - 521 5 - 58 13 - 15 year s 28 - 656 12 - 71 16 - 17 years 150 - 785 12 - 71 18 - 19 years 1 50 - 785 13 - 71 20 - 30 years 264 - 916 13 - 71 31 - 40 years 264 - 916 8 - 60 41 - 60 year s 264 - 916 4 - 50 61 - 80 years 264 - 916 3 - 6 7 >80 years 264 - 916 2 - 45Performed by: [facility] ([place]) Free 6.3 pg/mL 7.2-24.0 L Testosterone(Direct) (test code = 2991-8) [facility] Description: Testosterone,Free and [id number] 02:46:00 Test Item Value Reference Range Interpretation Comments Testosterone, Serum 565 ng/dL 264-916 Adult ma le reference (test code = 2986-8) interva l is based on a population ofhe althy nonobese males (BMI <30) between 19 and 39 years old.hansa Marshall.al. JCEM 2017,102;1 161-1173. PMID: [id number]. Effective December 19, 2020 Testosterone, S shy reference inter magui will be changing to: Age Male Female 0 - 30 days 0 - 650 4 - 190 1 - 5 months 0 - 650 0 - 42 6 months 0 - 36 0 - 42 7m- 1 year 0 - 36 1 - 26 2 - 5 years 0 - 36 3 - 33 6 - 8 years 0 - 36 3 - 25 9 - 10 years 0 - 21 1 - 33 11 years 1 - 16 1 5 - 58 12 years 2 - 52 1 5 - 58 13 - 15 years 2 8 - 656 12 - 71 16 - 17 years 150 - 785 - 71 18 - 19 years 150 - 785 13 - 71 20 - 30 year s 264 - 916 - 71 31 - 40 years 264 - 916 8 - 60 41 - 60 years 2 64 - 916 4 - 50 61 - 80 years 264 - 916 3 - 67 >8 0 years 264 - 916 2 - 45Performed by: [facility] ([facility]) Free 6.3 pg/mL 7.2-24.0 L Testosterone(Direct) (test code = 2991-8) [facility] Description: Testosterone,Free and [id number] 02:46:00 Test Item Value Reference Range Interpretation Comments Testosterone, Serum 565 ng/dL 264-916 Adult ma le reference (test code = 2986-8) interva l is based on a population ofhe althy nonobese males (BMI <30) between 19 and 39 years old.hansa Marshall t.al. JCEM 2017,102;1 161-1173. PMID: [id number]. Effective December 19, 2020 Testosterone, S shy reference inter magui will be changing to: Age Male Female 0 - 30 days 0 - 650 4 - 190 1 - 5 months 0 - 650 0 - 42 6 months 0 - 36 0 - 42 7m- 1 year 0 - 36 1 - 26 2 - 5 years 0 - 36 3 - 33 6 - 8 years 0 - 3 6 3 - 25 9 - 10 years 0 - 21 1 - 33 11 years 1 - 161 5 - 58 12 years 2 - 521 5 - 58 13 - 15 year s 28 - 656 - 71 16 - 17 years 150 - 785 71 18 - 19 years 1 50 - 785 - 71 20 - 30 years 264 - 916 13 - 71 31 - 40 years 264 - 916 8 - 60 41 - 60 yea rs 264 - 916 4 - 50 61 - 80 years 264 - 916 3 - 6 7 >80 years 264 - 916 2 - 45Performed by: [facility] ([place]) Free 6.3 pg/mL 7.2-24.0 L Testosterone(Direct) (test code = 2991-8) [facility] Description: Testosterone,Free and [id number] 02:46:00 Test Item Value Reference Range Interpretation Comments Testosterone, Serum 565 ng/dL 264-916 Adult ma le reference (test code = 2986-8) interva l is based on a population ofhe althy nonobese males (BMI <30) between 19 and 39 years old.hansa Marshall.yumiko. JCEM 2017,102;1 161-1173. PMID: [id number]. Effective December 19, 2020 Testosterone, S shy reference inter magui will be changing to: Age Male Female 0 - 30 d ays 0 - 650 4 - 190 1 - 5 months 0 - 650 0 - 42 6 months 0 - 36 0 - 42 7 m- 1 year 0 - 36 1 - 26 2 - 5 years 0 - 36 3 - 33 6 - 8 years 0 - 36 3 - 25 9 - 10 years 0 - 21 1 - 33 11 years 1 - 16 1 5 - 58 12 years 2 - 52 1 5 - 58 13 - 15 years 2 8 - 656 12 - 71 16 - 17 years 150 - 785 12 - 71 18 - 19 years 150 - 785 13 - 71 20 - 30 year s 264 - 916 13 - 71 31 - 40 years 264 - 916 8 - 60 41 - 60 years 2 64 - 916 4 - 50 61 - 80 years 264 - 916 3 - 67 > 80 years 264 - 916 2 - 45Performed by: [facility] ([place]) Free 6.3 pg/mL 7.2-24.0 L Testosterone(Direct) (test code = 2991-8) [facility] Description: Testosterone,Free and [id number] 02:46:00 Test Item Value Reference Range Interpretation Comments Testosterone, Serum 565 ng/dL 264-916 Adult ma le reference (test code = 2986-8) interva l is based on a population ofhe althy nonobese males (BMI <30) between 19 and 39 years old.hansa Marshall.al. JCEM 2017,102;1 161-1173. PMID: [id number]. Effective December 19, 2020 Testosterone, S shy reference inter magui will be changing to: Age Male Female 0 - 30 d ays 0 - 650 4 - 190 1 - 5 months 0 - 650 0 - 42 6 months 0 - 36 0 - 42 7 m- 1 year 0 - 36 1 - 26 2 - 5 years 0 - 36 3 - 33 6 - 8 years 0 - 36 3 - 25 9 - 10 years 0 - 21 1 - 33 11 years 1 - 16 1 5 - 58 12 years 2 - 52 1 5 - 58 13 - 15 years 28 - 656 12 - 71 16 - 17 years 150 - 785 12 - 71 18 - 19 years 150 - 785 13 - 71 20 - 30 year s 264 - 916 13 - 71 31 - 40 years 264 - 916 8 - 60 41 - 60 years 2 64 - 916 4 - 50 61 - 80 years 264 - 916 3 - 67 >8 0 years 264 - 916 2 - 45Performed by: [facility] ([place]) Free 6.3 pg/mL 7.2-24.0 L Testosterone(Direct) (test code = 2991-8) [facility] Description: Testosterone,Free and [id number] 02:46:00 Test Item Value Reference Range Interpretation Comments Testosterone, Serum (test code = 565 ng/dL 349-753 6157-8) Free Testosterone(Direct) (test 6.3 pg/mL 7.2-24.0 L code = 2991-8) [facility] Description: Testosterone,Free and Dnmxn1945-17-04 02:46:00 Test Item Value Reference Range Interpretation Comments Testosterone, Serum (test code = 565 ng/dL 160-121 6586-8) Free Testosterone(Direct) (test 6.3 pg/mL 7.2-24.0 L code = 2991-8) [facility] Description: Testosterone,Free and Zblso7556-09-32 02:46:00 Test Item Value Reference Range Interpretation Comments Testosterone, Serum (test code = 565 ng/dL 350-133 1883-8) Free Testosterone(Direct) (test 6.3 pg/mL 7.2-24.0 L code = 2991-8) [facility] Description: Testosterone,Free and [id number] 02:46:00 Test Item Value Reference Range Interpretation Comments Testosterone, Serum (test code = 565 ng/dL 065-494 0248-8) Free Testosterone(Direct) (test 6.3 pg/mL 7.2-24.0 L code = 2991-8) [facility] Description: Lipid [id number] 00:48:00 Test Item Value Reference Range Interpretation Comments Cholesterol, Total (test code = 108 mg/dL 335-137 8314-3) Triglycerides (test code = 2571-8) 146 mg/dL 0-149 HDL Cholesterol (test code = 32 mg/dL >39 L 5-9) VLDL Cholesterol Jose Roberto (test code = 25 mg/dL 5-40 08182-2) LDL Chol Calc (NIH) (test code = 51 mg/dL 0-99 12430-2) Comment: (test code = 91470-3) [facility] Description: Lipid [id number] 00:48:00 Test Item Value Reference Range Interpretation Comments Cholesterol, Total (test code = 108 mg/dL 524-345 5364-3) Triglycerides (test code = 2571-8) 146 mg/dL 0-149 HDL Cholesterol (test code = 32 mg/dL >39 L 5-9) VLDL Cholesterol Jose Roberto (test code = 25 mg/dL 5-40 03778-4) LDL Chol Calc (NIH) (test code = 51 mg/dL 0-99 23522-1) Comment: (test code = 00021-9) [facility] Description: Lipid [id number] 00:48:00 Test Item Value Reference Range Interpretation Comments Cholesterol, Total (test code = 108 mg/dL 256-366 6559-3) Triglycerides (test code = 2571-8) 146 mg/dL 0-149 HDL Cholesterol (test code = 32 mg/dL >39 L 5-9) VLDL Cholesterol Jose Roberto (test code = 25 mg/dL 5-40 57735-0) LDL Chol Calc (NIH) (test code = 51 mg/dL 0-99 67786-3) Comment: (test code = 81105-6) [facility] Description: Lipid [id number] 00:48:00 Test Item Value Reference Range Interpretation Comments Cholesterol, Total (test code = 108 mg/dL 105-999 8566-3) Triglycerides (test code = 2571-8) 146 mg/dL 0-149 HDL Cholesterol (test code = 32 mg/dL >39 L 2085-9) VLDL Cholesterol Jose Roberto (test code = 25 mg/dL 5-40 79253-1) LDL Chol Calc (NIH) (test code = 51 mg/dL 0-99 17509-9) Comment: (test code = 94142-3) [facility] Description: Lipid [id number] 00:48:00 Test Item Value Reference Range Interpretation Comments Cholesterol, Total (test code = 108 mg/dL 526-021 6650-3) Triglycerides (test code = 2571-8) 146 mg/dL 0-149 HDL Cholesterol (test code = 32 mg/dL >39 L 2085-9) VLDL Cholesterol Jose Roberto (test code = 25 mg/dL 5-40 22154-3) LDL Chol Calc (NIH) (test code = 51 mg/dL 0-99 92150-0) Comment: (test code = 18783-5) [facility] Description: Lipid [id number] 00:48:00 Test Item Value Reference Range Interpretation Comments Cholesterol, Total (test code = 108 mg/dL 490-557 2792-3) Triglycerides (test code = 2571-8) 146 mg/dL 0-149 HDL Cholesterol (test code = 32 mg/dL >39 L 2085-9) VLDL Cholesterol Jose Roberto (test code = 25 mg/dL 5-40 55700-8) LDL Chol Calc (NIH) (test code = 51 mg/dL 0-99 51316-9) Comment: (test code = 87676-5) [facility] Description: Lipid [id number] 00:48:00 Test Item Value Reference Range Interpretation Comments Cholesterol, Total (test code = 108 mg/dL 596-218 6716-3) Triglycerides (test code = 2571-8) 146 mg/dL 0-149 HDL Cholesterol (test code = 32 mg/dL >39 L 2085-9) VLDL Cholesterol Jose Roberto (test code = 25 mg/dL 5-40 00050-6) LDL Chol Calc (NIH) (test code = 51 mg/dL 0-99 53365-3) Comment: (test code = 42365-1) [facility] Description: Lipid [id number] 00:48:00 Test Item Value Reference Range Interpretation Comments Cholesterol, Total (test code = 108 mg/dL 928-108 8674-3) Triglycerides (test code = 2571-8) 146 mg/dL 0-149 HDL Cholesterol (test code = 32 mg/dL >39 L 2085-9) VLDL Cholesterol Jose Roberto (test code = 25 mg/dL 5-40 39538-0) LDL Chol Calc (NIH) (test code = 51 mg/dL 0-99 87106-7) Comment: (test code = 12717-9) [facility] Description: Lipid [id number] 00:48:00 Test Item Value Reference Range Interpretation Comments Cholesterol, Total (test code = 108 mg/dL 725-016 9769-3) Triglycerides (test code = 2571-8) 146 mg/dL 0-149 HDL Cholesterol (test code = 32 mg/dL >39 L 2085-9) VLDL Cholesterol Jose Roberto (test code = 25 mg/dL 5-40 80189-2) LDL Chol Calc (NIH) (test code = 51 mg/dL 0-99 39718-3) Comment: (test code = 78797-3) [facility] Description: Lipid [id number] 00:48:00 Test Item Value Reference Range Interpretation Comments Cholesterol, Total (test code = 108 mg/dL 046-920 5787-3) Triglycerides (test code = 2571-8) 146 mg/dL 0-149 HDL Cholesterol (test code = 32 mg/dL >39 L 2085-9) VLDL Cholesterol Jose Roberto (test code = 25 mg/dL 5-40 71839-2) LDL Chol Calc (NIH) (test code = 51 mg/dL 0-99 70545-8) Comment: (test code = 70721-5) [facility] Description: Lipid [id number] 00:48:00 Test Item Value Reference Range Interpretation Comments Cholesterol, Total (test code = 108 mg/dL 692-418 5833-3) Triglycerides (test code = 2571-8) 146 mg/dL 0-149 HDL Cholesterol (test code = 32 mg/dL >39 L 2085-9) VLDL Cholesterol Jose Roberto (test code = 25 mg/dL 5-40 64164-4) LDL Chol Calc (NIH) (test code = 51 mg/dL 0-99 35423-1) Comment: (test code = 36987-0) [facility] Description: Lipid [id number] 00:48:00 Test Item Value Reference Range Interpretation Comments Cholesterol, Total (test code = 108 mg/dL 682-948 4619-3) Triglycerides (test code = 2571-8) 146 mg/dL 0-149 HDL Cholesterol (test code = 32 mg/dL >39 L 2085-9) VLDL Cholesterol Jose Roberto (test code = 25 mg/dL 5-40 34158-2) LDL Chol Calc (NIH) (test code = 51 mg/dL 0-99 18685-5) Comment: (test code = 01214-4) [facility] Description: Lipid [id number] 00:48:00 Test Item Value Reference Range Interpretation Comments Cholesterol, Total (test code = 108 mg/dL 207-069 1894-3) Triglycerides (test code = 2571-8) 146 mg/dL 0-149 HDL Cholesterol (test code = 32 mg/dL >39 L 2085-9) VLDL Cholesterol Jose Roberto (test code = 25 mg/dL 5-40 26734-3) LDL Chol Calc (NIH) (test code = 51 mg/dL 0-99 14019-4) Comment: (test code = 72884-4) [facility] Description: Lipid [id number] 00:48:00 Test Item Value Reference Range Interpretation Comments Cholesterol, Total (test code = 108 mg/dL 103-359 6128-3) Triglycerides (test code = 2571-8) 146 mg/dL 0-149 HDL Cholesterol (test code = 32 mg/dL >39 L 2085-9) VLDL Cholesterol Jose Roberto (test code = 25 mg/dL 5-40 02910-7) LDL Chol Calc (NIH) (test code = 51 mg/dL 0-99 79633-7) Comment: (test code = 42424-8) [facility] Description: Lipid [id number] 00:48:00 Test Item Value Reference Range Interpretation Comments Cholesterol, Total (test code = 108 mg/dL 703-348 2141-3) Triglycerides (test code = 2571-8) 146 mg/dL 0-149 HDL Cholesterol (test code = 32 mg/dL >39 L 2085-9) VLDL Cholesterol Jose Roberto (test code = 25 mg/dL 5-40 61216-7) LDL Chol Calc (NIH) (test code = 51 mg/dL 0-99 96394-2) Comment: (test code = 39891-9) [facility] Description: Lipid [id number] 00:48:00 Test Item Value Reference Range Interpretation Comments Cholesterol, Total (test code = 108 mg/dL 564-576 9273-3) Triglycerides (test code = 2571-8) 146 mg/dL 0-149 HDL Cholesterol (test code = 32 mg/dL >39 L 2084-9) VLDL Cholesterol Jose Roberto (test code = 25 mg/dL 5-40 18693-6) LDL Chol Calc (NIH) (test code = 51 mg/dL 0-99 08680-2) Comment: (test code = 71305-3) [facility] Description: Lipid [id number] 00:48:00 Test Item Value Reference Range Interpretation Comments Cholesterol, Total (test code = 108 mg/dL 582-955 5385-3) Triglycerides (test code = 2571-8) 146 mg/dL 0-149 HDL Cholesterol (test code = 32 mg/dL >39 L 2084-9) VLDL Cholesterol Jose Roberto (test code = 25 mg/dL 5-40 33238-9) LDL Chol Calc (NIH) (test code = 51 mg/dL 0-99 47522-6) Comment: (test code = 53442-9) [facility] Description: Lipid [id number] 00:48:00 Test Item Value Reference Range Interpretation Comments Cholesterol, Total (test code = 108 mg/dL 857-168 4677-3) Triglycerides (test code = 2571-8) 146 mg/dL 0-149 HDL Cholesterol (test code = 32 mg/dL >39 L 2084-9) VLDL Cholesterol Jose Roberto (test code = 25 mg/dL 5-40 75962-8) LDL Chol Calc (NIH) (test code = 51 mg/dL 0-99 69425-2) Comment: (test code = 96902-6) [facility] Description: Lipid [id number] 00:48:00 Test Item Value Reference Range Interpretation Comments Cholesterol, Total (test code = 108 mg/dL 700-725 7631-3) Triglycerides (test code = 2571-8) 146 mg/dL 0-149 HDL Cholesterol (test code = 32 mg/dL >39 L 5-9) VLDL Cholesterol Jose Roberto (test code = 25 mg/dL 5-40 52137-9) LDL Chol Calc (NIH) (test code = 51 mg/dL 0-99 56489-5) Comment: (test code = 76760-9) [facility] Description: Lipid [id number] 00:48:00 Test Item Value Reference Range Interpretation Comments Cholesterol, Total (test code = 108 mg/dL 228-445 1647-3) Triglycerides (test code = 2571-8) 146 mg/dL 0-149 HDL Cholesterol (test code = 32 mg/dL >39 L 2084-9) VLDL Cholesterol Jose Roberto (test code = 25 mg/dL 5-40 14219-8) LDL Chol Calc (NIH) (test code = 51 mg/dL 0-99 55669-9) Comment: (test code = 91238-7) [facility] Description: Comp. Metabolic Panel (14)2020-11-25 00:29:00 Test Item Value Reference Range Interpretation Comments Glucose (test code = 2345-7) 178 mg/dL 65-99 H BUN (test code = 3094-0) 13 mg/dL 6-24 Creatinine (test code = 0.90 mg/dL 0.76-1.27 2160-0) eGFR If NonAfricn Am (test 98 mL/min/1.73 >59 code = 29213-6) eGFR If Africn Am (test code 113 mL/min/1.73 >59 = 30569-9) BUN/Creatinine Ratio (test 14 9- code = 3097-3) Sodium (test code = 2951-2) 140 mmol/L 134-144 Potassium (test code = 3.9 mmol/L 3.5-5.2 2823-3) Chloride (test code = 2075-0) 103 mmol/L 96-106 Carbon Dioxide, Total (test 24 mmol/L 20-29 code = 2027-9) Calcium (test code = 49677-5) 9.7 mg/dL 8.7-10.2 Protein, Total (test code = 7.1 g/dL 6.0-8.5 2885-2) Albumin (test code = 1751-7) 4.6 g/dL 3.8-4.9 Globulin, Total (test code = 2.5 g/dL 1.5-4.5 68930-0) A/G Ratio (test code = 1.8 1.2-2.2 1759-0) Bilirubin, Total (test code = 0.5 mg/dL 0.0-1.2 1974-09) Alkaline Phosphatase (test 88 IU/L 39-117 code = 6768-6) AST (SGOT) (test code = 23 IU/L 0-40 1920-8) ALT (SGPT) (test code = 24 IU/L 0-44 1742-6) [facility] Description: Comp. Metabolic Panel (14)2020-11-25 00:29:00 Test Item Value Reference Range Interpretation Comments Glucose (test code = 2345-7) 178 mg/dL 65-99 H BUN (test code = 3094-0) 13 mg/dL 6-24 Creatinine (test code = 0.90 mg/dL 0.76-1.27 2160-0) eGFR If NonAfricn Am (test 98 mL/min/1.73 >59 code = 26749-6) eGFR If Africn Am (test code 113 mL/min/1.73 >59 = 46496-6) BUN/Creatinine Ratio (test 14 - code = 3097-3) Sodium (test code = 2951-2) 140 mmol/L 134-144 Potassium (test code = 3.9 mmol/L 3.5-5.2 2823-3) Chloride (test code = 2075-0) 103 mmol/L 96-106 Carbon Dioxide, Total (test 24 mmol/L 20-29 code = 2027-9) Calcium (test code = 43547-9) 9.7 mg/dL 8.7-10.2 Protein, Total (test code = 7.1 g/dL 6.0-8.5 2885-2) Albumin (test code = 1751-7) 4.6 g/dL 3.8-4.9 Globulin, Total (test code = 2.5 g/dL 1.5-4.5 84797-8) A/G Ratio (test code = 1.8 1.2-2.2 1758-0) Bilirubin, Total (test code = 0.5 mg/dL 0.0-1.2 1974-09) Alkaline Phosphatase (test 88 IU/L 39-117 code = 6768-6) AST (SGOT) (test code = 23 IU/L 0-40 1920-8) ALT (SGPT) (test code = 24 IU/L 0-44 1742-6) [facility] Description: Comp. Metabolic Panel (14)2020-11-25 00:29:00 Test Item Value Reference Range Interpretation Comments Glucose (test code = 2345-7) 178 mg/dL 65-99 H BUN (test code = 3094-0) 13 mg/dL 6-24 Creatinine (test code = 0.90 mg/dL 0.76-1.27 2160-0) eGFR If NonAfricn Am (test 98 mL/min/1.73 >59 code = 15813-4) eGFR If Africn Am (test code 113 mL/min/1.73 >59 = 06254-8) BUN/Creatinine Ratio (test 14 05-01 code = 3097-3) Sodium (test code = 2951-2) 140 mmol/L 134-144 Potassium (test code = 3.9 mmol/L 3.5-5.2 2823-3) Chloride (test code = 2075-0) 103 mmol/L 96-106 Carbon Dioxide, Total (test 24 mmol/L code = 2027-9) Calcium (test code = 60719-0) 9.7 mg/dL 8.7-10.2 Protein, Total (test code = 7.1 g/dL 6.0-8.5 2885-2) Albumin (test code = 1751-7) 4.6 g/dL 3.8-4.9 Globulin, Total (test code = 2.5 g/dL 1.5-4.5 45496-8) A/G Ratio (test code = 1.8 1.2-2.2 1759-0) Bilirubin, Total (test code = 0.5 mg/dL 0.0-1.2 1975-2) Alkaline Phosphatase (test 88 IU/L 39-117 code = 6768-6) AST (SGOT) (test code = 23 IU/L 0-40 1920-8) ALT (SGPT) (test code = 24 IU/L 0-44 2-6) [facility] Description: Comp. Metabolic Panel (14)2020-11-25 00:29:00 Test Item Value Reference Range Interpretation Comments Glucose (test code = 2345-7) 178 mg/dL 65-99 H BUN (test code = 3094-0) 13 mg/dL 6-24 Creatinine (test code = 0.90 mg/dL 0.76-1.27 2160-0) eGFR If NonAfricn Am (test 98 mL/min/1.73 >59 code = 96592-0) eGFR If Africn Am (test code 113 mL/min/1.73 >59 = 93689-3) BUN/Creatinine Ratio (test 14 - code = 3097-3) Sodium (test code = 2951-2) 140 mmol/L 134-144 Potassium (test code = 3.9 mmol/L 3.5-5.2 2823-3) Chloride (test code = 2075-0) 103 mmol/L 96-106 Carbon Dioxide, Total (test 24 mmol/L 20-29 code = 8-9) Calcium (test code = 36153-0) 9.7 mg/dL 8.7-10.2 Protein, Total (test code = 7.1 g/dL 6.0-8.5 2885-2) Albumin (test code = 1751-7) 4.6 g/dL 3.8-4.9 Globulin, Total (test code = 2.5 g/dL 1.5-4.5 00469-1) A/G Ratio (test code = 1.8 1.2-2.2 1759-0) Bilirubin, Total (test code = 0.5 mg/dL 0.0-1.2 1975-2) Alkaline Phosphatase (test 88 IU/L 39-117 code = 6768-6) AST (SGOT) (test code = 23 IU/L 0-40 1920-8) ALT (SGPT) (test code = 24 IU/L 0-44 1742-6) [facility] Description: Comp. Metabolic Panel ()2020-11-25 00:29:00 Test Item Value Reference Range Interpretation Comments Glucose (test code = 2345-7) 178 mg/dL 65-99 H BUN (test code = 3094-0) 13 mg/dL 6-24 Creatinine (test code = 0.90 mg/dL 0.76-1.27 2160-0) eGFR If NonAfricn Am (test 98 mL/min/1.73 >59 code = 83329-1) eGFR If Africn Am (test code 113 mL/min/1.73 >59 = 25349-8) BUN/Creatinine Ratio (test 05-01 code = 3097-3) Sodium (test code = 2951-2) 140 mmol/L 134-144 Potassium (test code = 3.9 mmol/L 3.5-5.2 2823-3) Chloride (test code = 2075-0) 103 mmol/L 96-106 Carbon Dioxide, Total (test 24 mmol/L 20-29 code = 2027-9) Calcium (test code = 61470-8) 9.7 mg/dL 8.7-10.2 Protein, Total (test code = 7.1 g/dL 6.0-8.5 2885-2) Albumin (test code = 1751-7) 4.6 g/dL 3.8-4.9 Globulin, Total (test code = 2.5 g/dL 1.5-4.5 31657-0) A/G Ratio (test code = 1.8 1.2-2.2 1759-0) Bilirubin, Total (test code = 0.5 mg/dL 0.0-1.2 1975-2) Alkaline Phosphatase (test 88 IU/L 39-117 code = 6768-6) AST (SGOT) (test code = 23 IU/L 0-40 1920-8) ALT (SGPT) (test code = 24 IU/L 0-44 1742-6) [facility] Description: Comp. Metabolic Panel (2020-11-25 00:29:00 Test Item Value Reference Range Interpretation Comments Glucose (test code = 2345-7) 178 mg/dL 65-99 H BUN (test code = 3094-0) 13 mg/dL 6-24 Creatinine (test code = 0.90 mg/dL 0.76-1.27 2160-0) eGFR If NonAfricn Am (test 98 mL/min/1.73 >59 code = 00772-2) eGFR If Africn Am (test code 113 mL/min/1.73 >59 = 00576-2) BUN/Creatinine Ratio (test 05-01 code = 3097-3) Sodium (test code = 2951-2) 140 mmol/L 134-144 Potassium (test code = 3.9 mmol/L 3.5-5.2 2823-3) Chloride (test code = 2075-0) 103 mmol/L 96-106 Carbon Dioxide, Total (test 24 mmol/L - code = 2027-9) Calcium (test code = 22700-2) 9.7 mg/dL 8.7-10.2 Protein, Total (test code = 7.1 g/dL 6.0-8.5 2885-2) Albumin (test code = 1751-7) 4.6 g/dL 3.8-4.9 Globulin, Total (test code = 2.5 g/dL 1.5-4.5 92819-6) A/G Ratio (test code = 1.8 1.2-2.2 1759-0) Bilirubin, Total (test code = 0.5 mg/dL 0.0-1.2 1975-2) Alkaline Phosphatase (test 88 IU/L 39-117 code = 6768-6) AST (SGOT) (test code = 23 IU/L 0-40 1920-8) ALT (SGPT) (test code = 24 IU/L 0-44 1742-6) [facility] Description: Comp. Metabolic Panel (14)2020-11-25 00:29:00 Test Item Value Reference Range Interpretation Comments Glucose (test code = 2345-7) 178 mg/dL 65-99 H BUN (test code = 3094-0) 13 mg/dL 6-24 Creatinine (test code = 0.90 mg/dL 0.76-1.27 2160-0) eGFR If NonAfricn Am (test 98 mL/min/1.73 >59 code = 79146-7) eGFR If Africn Am (test code 113 mL/min/1.73 >59 = 58512-6) BUN/Creatinine Ratio (test 14 05-01 code = 3097-3) Sodium (test code = 2951-2) 140 mmol/L 134-144 Potassium (test code = 3.9 mmol/L 3.5-5.2 2823-3) Chloride (test code = 2075-0) 103 mmol/L 96-106 Carbon Dioxide, Total (test 24 mmol/L - code = 2027-9) Calcium (test code = 03402-5) 9.7 mg/dL 8.7-10.2 Protein, Total (test code = 7.1 g/dL 6.0-8.5 2885-2) Albumin (test code = 1751-7) 4.6 g/dL 3.8-4.9 Globulin, Total (test code = 2.5 g/dL 1.5-4.5 64591-4) A/G Ratio (test code = 1.8 1.2-2.2 1759-0) Bilirubin, Total (test code = 0.5 mg/dL 0.0-1.2 1975-2) Alkaline Phosphatase (test 88 IU/L 39-117 code = 6768-6) AST (SGOT) (test code = 23 IU/L 0-40 1920-8) ALT (SGPT) (test code = 24 IU/L 0-44 1742-6) [facility] Description: Comp. Metabolic Panel (14)2020-11-25 00:29:00 Test Item Value Reference Range Interpretation Comments Glucose (test code = 2345-7) 178 mg/dL 65-99 H BUN (test code = 3094-0) 13 mg/dL 6-24 Creatinine (test code = 0.90 mg/dL 0.76-1.27 2160-0) eGFR If NonAfricn Am (test 98 mL/min/1.73 >59 code = 49081-2) eGFR If Africn Am (test code 113 mL/min/1.73 >59 = 64378-6) BUN/Creatinine Ratio (test 14 - code = 3097-3) Sodium (test code = 2951-2) 140 mmol/L 134-144 Potassium (test code = 3.9 mmol/L 3.5-5.2 2823-3) Chloride (test code = 2075-0) 103 mmol/L 96-106 Carbon Dioxide, Total (test 24 mmol/L 20-29 code = 8-9) Calcium (test code = 95594-9) 9.7 mg/dL 8.7-10.2 Protein, Total (test code = 7.1 g/dL 6.0-8.5 2885-2) Albumin (test code = 1751-7) 4.6 g/dL 3.8-4.9 Globulin, Total (test code = 2.5 g/dL 1.5-4.5 90809-3) A/G Ratio (test code = 1.8 1.2-2.2 1759-0) Bilirubin, Total (test code = 0.5 mg/dL 0.0-1.2 1974-) Alkaline Phosphatase (test 88 IU/L 39-117 code = 6768-6) AST (SGOT) (test code = 23 IU/L 0-40 1920-8) ALT (SGPT) (test code = 24 IU/L 0-44 1742-6) [facility] Description: Comp. Metabolic Panel (14)2020-11-25 00:29:00 Test Item Value Reference Range Interpretation Comments Glucose (test code = 2345-7) 178 mg/dL 65-99 H BUN (test code = 3094-0) 13 mg/dL 6-24 Creatinine (test code = 0.90 mg/dL 0.76-1.27 2160-0) eGFR If NonAfricn Am (test 98 mL/min/1.73 >59 code = 59629-7) eGFR If Africn Am (test code 113 mL/min/1.73 >59 = 54597-7) BUN/Creatinine Ratio (test 14 9- code = 3097-3) Sodium (test code = 2951-2) 140 mmol/L 134-144 Potassium (test code = 3.9 mmol/L 3.5-5.2 2823-3) Chloride (test code = 2075-0) 103 mmol/L 96-106 Carbon Dioxide, Total (test 24 mmol/L 20-29 code = 2027-9) Calcium (test code = 54797-9) 9.7 mg/dL 8.7-10.2 Protein, Total (test code = 7.1 g/dL 6.0-8.5 2885-2) Albumin (test code = 1751-7) 4.6 g/dL 3.8-4.9 Globulin, Total (test code = 2.5 g/dL 1.5-4.5 01058-0) A/G Ratio (test code = 1.8 1.2-2.2 1759-0) Bilirubin, Total (test code = 0.5 mg/dL 0.0-1.2 1974-) Alkaline Phosphatase (test 88 IU/L 39-117 code = 6768-6) AST (SGOT) (test code = 23 IU/L 0-40 1920-8) ALT (SGPT) (test code = 24 IU/L 0-44 1742-6) [facility] (14)2020-11-25 00:29:00 Test Item Value Reference Range Interpretation Comments Glucose (test code = 2345-7) 178 mg/dL 65-99 H BUN (test code = 3094-0) 13 mg/dL 6-24 Creatinine (test code = 0.90 mg/dL 0.76-1.27 2160-0) eGFR If NonAfricn Am (test 98 mL/min/1.73 >59 code = 97638-6) eGFR If Africn Am (test code 113 mL/min/1.73 >59 = 72097-3) BUN/Creatinine Ratio (test 14 - code = 3097-3) Sodium (test code = 2951-2) 140 mmol/L 134-144 Potassium (test code = 3.9 mmol/L 3.5-5.2 2823-3) Chloride (test code = 2075-0) 103 mmol/L 96-106 Carbon Dioxide, Total (test 24 mmol/L 20-29 code = 2027-9) Calcium (test code = 38487-4) 9.7 mg/dL 8.7-10.2 Protein, Total (test code = 7.1 g/dL 6.0-8.5 2885-2) Albumin (test code = 1751-7) 4.6 g/dL 3.8-4.9 Globulin, Total (test code = 2.5 g/dL 1.5-4.5 36483-6) A/G Ratio (test code = 1.8 1.2-2.2 1759-0) Bilirubin, Total (test code = 0.5 mg/dL 0.0-1.2 1974-) Alkaline Phosphatase (test 88 IU/L 39-117 code = 6768-6) AST (SGOT) (test code = 23 IU/L 0-40 1920-8) ALT (SGPT) (test code = 24 IU/L 0-44 1742-6) [facility] Description: Comp. Metabolic Panel (14)2020-11-25 00:29:00 Test Item Value Reference Range Interpretation Comments Glucose (test code = 2345-7) 178 mg/dL 65-99 H BUN (test code = 3094-0) 13 mg/dL 6-24 Creatinine (test code = 0.90 mg/dL 0.76-1.27 2160-0) eGFR If NonAfricn Am (test 98 mL/min/1.73 >59 code = 29398-3) eGFR If Africn Am (test code 113 mL/min/1.73 >59 = 40416-2) BUN/Creatinine Ratio (test 14 - code = 3097-3) Sodium (test code = 2951-2) 140 mmol/L 134-144 Potassium (test code = 3.9 mmol/L 3.5-5.2 2823-3) Chloride (test code = 2075-0) 103 mmol/L 96-106 Carbon Dioxide, Total (test 24 mmol/L - code = 2027-9) Calcium (test code = 52015-7) 9.7 mg/dL 8.7-10.2 Protein, Total (test code = 7.1 g/dL 6.0-8.5 2885-2) Albumin (test code = 1751-7) 4.6 g/dL 3.8-4.9 Globulin, Total (test code = 2.5 g/dL 1.5-4.5 39219-6) A/G Ratio (test code = 1.8 1.2-2.2 1759-0) Bilirubin, Total (test code = 0.5 mg/dL 0.0-1.2 1975-2) Alkaline Phosphatase (test 88 IU/L 39-117 code = 6768-6) AST (SGOT) (test code = 23 IU/L 0-40 1920-8) ALT (SGPT) (test code = 24 IU/L 0-44 1742-6) [facility] Description: Comp. Metabolic Panel (14)2020-11-25 00:29:00 Test Item Value Reference Range Interpretation Comments Glucose (test code = 2345-7) 178 mg/dL 65-99 H BUN (test code = 3094-0) 13 mg/dL 6-24 Creatinine (test code = 0.90 mg/dL 0.76-1.27 2160-0) eGFR If NonAfricn Am (test 98 mL/min/1.73 >59 code = 51991-7) eGFR If Africn Am (test code 113 mL/min/1.73 >59 = 24615-3) BUN/Creatinine Ratio (test 14 9- code = 3097-3) Sodium (test code = 2951-2) 140 mmol/L 134-144 Potassium (test code = 3.9 mmol/L 3.5-5.2 2823-3) Chloride (test code = 2075-0) 103 mmol/L 96-106 Carbon Dioxide, Total (test 24 mmol/L 20-29 code = 2027-9) Calcium (test code = 37830-3) 9.7 mg/dL 8.7-10.2 Protein, Total (test code = 7.1 g/dL 6.0-8.5 2885-2) Albumin (test code = 1751-7) 4.6 g/dL 3.8-4.9 Globulin, Total (test code = 2.5 g/dL 1.5-4.5 89744-8) A/G Ratio (test code = 1.8 1.2-2.2 1759-0) Bilirubin, Total (test code = 0.5 mg/dL 0.0-1.2 1975-2) Alkaline Phosphatase (test 88 IU/L 39-117 code = 6768-6) AST (SGOT) (test code = 23 IU/L 0-40 1920-8) ALT (SGPT) (test code = 24 IU/L 0-44 1742-6) [facility] Description: Comp. Metabolic Panel ()2020-11-25 00:29:00 Test Item Value Reference Range Interpretation Comments Glucose (test code = 2345-7) 178 mg/dL 65-99 H BUN (test code = 3094-0) 13 mg/dL 6-24 Creatinine (test code = 0.90 mg/dL 0.76-1.27 2160-0) eGFR If NonAfricn Am (test 98 mL/min/1.73 >59 code = 87712-1) eGFR If Africn Am (test code 113 mL/min/1.73 >59 = 75507-6) BUN/Creatinine Ratio (test 05-01 code = 3097-3) Sodium (test code = 2951-2) 140 mmol/L 134-144 Potassium (test code = 3.9 mmol/L 3.5-5.2 2823-3) Chloride (test code = 2075-0) 103 mmol/L 96-106 Carbon Dioxide, Total (test 24 mmol/L 20-29 code = 2027-9) Calcium (test code = 31846-2) 9.7 mg/dL 8.7-10.2 Protein, Total (test code = 7.1 g/dL 6.0-8.5 2885-2) Albumin (test code = 1751-7) 4.6 g/dL 3.8-4.9 Globulin, Total (test code = 2.5 g/dL 1.5-4.5 03930-3) A/G Ratio (test code = 1.8 1.2-2.2 1759-0) Bilirubin, Total (test code = 0.5 mg/dL 0.0-1.2 1975-2) Alkaline Phosphatase (test 88 IU/L 39-117 code = 6768-6) AST (SGOT) (test code = 23 IU/L 0-40 1920-8) ALT (SGPT) (test code = 24 IU/L 0-44 1742-6) [facility] Description: Comp. Metabolic Panel (14)2020-11-25 00:29:00 Test Item Value Reference Range Interpretation Comments Glucose (test code = 2345-7) 178 mg/dL 65-99 H BUN (test code = 3094-0) 13 mg/dL 6-24 Creatinine (test code = 0.90 mg/dL 0.76-1.27 2160-0) eGFR If NonAfricn Am (test 98 mL/min/1.73 >59 code = 11535-5) eGFR If Africn Am (test code 113 mL/min/1.73 >59 = 67800-6) BUN/Creatinine Ratio (test 05-01 code = 3097-3) Sodium (test code = 2951-2) 140 mmol/L 134-144 Potassium (test code = 3.9 mmol/L 3.5-5.2 2823-3) Chloride (test code = 2075-0) 103 mmol/L 96-106 Carbon Dioxide, Total (test 24 mmol/L - code = 2027-) Calcium (test code = 02790-4) 9.7 mg/dL 8.7-10.2 Protein, Total (test code = 7.1 g/dL 6.0-8.5 2885-2) Albumin (test code = 1751-7) 4.6 g/dL 3.8-4.9 Globulin, Total (test code = 2.5 g/dL 1.5-4.5 60078-4) A/G Ratio (test code = 1.8 1.2-2.2 1759-0) Bilirubin, Total (test code = 0.5 mg/dL 0.0-1.2 1975-2) Alkaline Phosphatase (test 88 IU/L 39-117 code = 6768-6) AST (SGOT) (test code = 23 IU/L 0-40 1920-8) ALT (SGPT) (test code = 24 IU/L 0-44 1742-6) [facility] Description: Comp. Metabolic Panel (14)2020-11-25 00:29:00 Test Item Value Reference Range Interpretation Comments Glucose (test code = 2345-7) 178 mg/dL 65-99 H BUN (test code = 3094-0) 13 mg/dL 6-24 Creatinine (test code = 0.90 mg/dL 0.76-1.27 2160-0) eGFR If NonAfricn Am (test 98 mL/min/1.73 >59 code = 24749-5) eGFR If Africn Am (test code 113 mL/min/1.73 >59 = 86533-5) BUN/Creatinine Ratio (test 14 05-01 code = 3097-3) Sodium (test code = 2951-2) 140 mmol/L 134-144 Potassium (test code = 3.9 mmol/L 3.5-5.2 2823-3) Chloride (test code = 2075-0) 103 mmol/L 96-106 Carbon Dioxide, Total (test 24 mmol/L -29 code = 2027-9) Calcium (test code = 59570-0) 9.7 mg/dL 8.7-10.2 Protein, Total (test code = 7.1 g/dL 6.0-8.5 2885-2) Albumin (test code = 1751-7) 4.6 g/dL 3.8-4.9 Globulin, Total (test code = 2.5 g/dL 1.5-4.5 55681-6) A/G Ratio (test code = 1.8 1.2-2.2 1759-0) Bilirubin, Total (test code = 0.5 mg/dL 0.0-1.2 1975-2) Alkaline Phosphatase (test 88 IU/L 39-117 code = 6768-6) AST (SGOT) (test code = 23 IU/L 0-40 1920-8) ALT (SGPT) (test code = 24 IU/L 0-44 1742-6) [facility] Description: Comp. Metabolic Panel (14)2020-11-25 00:29:00 Test Item Value Reference Range Interpretation Comments Glucose (test code = 2345-7) 178 mg/dL 65-99 H BUN (test code = 3094-0) 13 mg/dL 6-24 Creatinine (test code = 0.90 mg/dL 0.76-1.27 2160-0) eGFR If NonAfricn Am (test 98 mL/min/1.73 >59 code = 75735-2) eGFR If Africn Am (test code 113 mL/min/1.73 >59 = 63865-9) BUN/Creatinine Ratio (test 14 - code = 3097-3) Sodium (test code = 2951-2) 140 mmol/L 134-144 Potassium (test code = 3.9 mmol/L 3.5-5.2 2823-3) Chloride (test code = 2075-0) 103 mmol/L 96-106 Carbon Dioxide, Total (test 24 mmol/L 20-29 code = 8-9) Calcium (test code = 46388-0) 9.7 mg/dL 8.7-10.2 Protein, Total (test code = 7.1 g/dL 6.0-8.5 2885-2) Albumin (test code = 1751-7) 4.6 g/dL 3.8-4.9 Globulin, Total (test code = 2.5 g/dL 1.5-4.5 61160-4) A/G Ratio (test code = 1.8 1.2-2.2 1759-0) Bilirubin, Total (test code = 0.5 mg/dL 0.0-1.2 1974-) Alkaline Phosphatase (test 88 IU/L 39-117 code = 6768-6) AST (SGOT) (test code = 23 IU/L 0-40 1920-8) ALT (SGPT) (test code = 24 IU/L 0-44 1742-6) [facility] Description: Comp. Metabolic Panel (14)2020-11-25 00:29:00 Test Item Value Reference Range Interpretation Comments Glucose (test code = 2345-7) 178 mg/dL 65-99 H BUN (test code = 3094-0) 13 mg/dL 6-24 Creatinine (test code = 0.90 mg/dL 0.76-1.27 2160-0) eGFR If NonAfricn Am (test 98 mL/min/1.73 >59 code = 51385-1) eGFR If Africn Am (test code 113 mL/min/1.73 >59 = 54530-0) BUN/Creatinine Ratio (test 14 - code = 3097-3) Sodium (test code = 2951-2) 140 mmol/L 134-144 Potassium (test code = 3.9 mmol/L 3.5-5.2 2823-3) Chloride (test code = 2075-0) 103 mmol/L 96-106 Carbon Dioxide, Total (test 24 mmol/L 20-29 code = 2027-9) Calcium (test code = 09314-0) 9.7 mg/dL 8.7-10.2 Protein, Total (test code = 7.1 g/dL 6.0-8.5 2885-2) Albumin (test code = 1751-7) 4.6 g/dL 3.8-4.9 Globulin, Total (test code = 2.5 g/dL 1.5-4.5 29535-2) A/G Ratio (test code = 1.8 1.2-2.2 1759-0) Bilirubin, Total (test code = 0.5 mg/dL 0.0-1.2 1974-2) Alkaline Phosphatase (test 88 IU/L 39-117 code = 6768-6) AST (SGOT) (test code = 23 IU/L 0-40 1920-8) ALT (SGPT) (test code = 24 IU/L 0-44 1742-6) [facility] Description: Comp. Metabolic Panel (14)2020-11-25 00:29:00 Test Item Value Reference Range Interpretation Comments Glucose (test code = 2345-7) 178 mg/dL 65-99 H BUN (test code = 3094-0) 13 mg/dL 6-24 Creatinine (test code = 0.90 mg/dL 0.76-1.27 2160-0) eGFR If NonAfricn Am (test 98 mL/min/1.73 >59 code = 15294-6) eGFR If Africn Am (test code 113 mL/min/1.73 >59 = 56471-9) BUN/Creatinine Ratio (test 14 - code = 3097-3) Sodium (test code = 2951-2) 140 mmol/L 134-144 Potassium (test code = 3.9 mmol/L 3.5-5.2 2823-3) Chloride (test code = 2075-0) 103 mmol/L 96-106 Carbon Dioxide, Total (test 24 mmol/L 20-29 code = 2027-9) Calcium (test code = 43866-7) 9.7 mg/dL 8.7-10.2 Protein, Total (test code = 7.1 g/dL 6.0-8.5 2885-2) Albumin (test code = 1751-7) 4.6 g/dL 3.8-4.9 Globulin, Total (test code = 2.5 g/dL 1.5-4.5 77765-8) A/G Ratio (test code = 1.8 1.2-2.2 1759-0) Bilirubin, Total (test code = 0.5 mg/dL 0.0-1.2 1975-2) Alkaline Phosphatase (test 88 IU/L 39-117 code = 6768-6) AST (SGOT) (test code = 23 IU/L 0-40 1920-8) ALT (SGPT) (test code = 24 IU/L 0-44 1742-6) [facility] Description: Comp. Metabolic Panel ()2020-11-25 00:29:00 Test Item Value Reference Range Interpretation Comments Glucose (test code = 2345-7) 178 mg/dL 65-99 H BUN (test code = 3094-0) 13 mg/dL 6-24 Creatinine (test code = 0.90 mg/dL 0.76-1.27 2160-0) eGFR If NonAfricn Am (test 98 mL/min/1.73 >59 code = 68527-1) eGFR If Africn Am (test code 113 mL/min/1.73 >59 = 48580-6) BUN/Creatinine Ratio (test 14 05-01 code = 3097-3) Sodium (test code = 2951-2) 140 mmol/L 134-144 Potassium (test code = 3.9 mmol/L 3.5-5.2 2823-3) Chloride (test code = 2075-0) 103 mmol/L 96-106 Carbon Dioxide, Total (test 24 mmol/L - code = 2027-9) Calcium (test code = 46311-2) 9.7 mg/dL 8.7-10.2 Protein, Total (test code = 7.1 g/dL 6.0-8.5 2885-2) Albumin (test code = 1751-7) 4.6 g/dL 3.8-4.9 Globulin, Total (test code = 2.5 g/dL 1.5-4.5 90224-1) A/G Ratio (test code = 1.8 1.2-2.2 1759-0) Bilirubin, Total (test code = 0.5 mg/dL 0.0-1.2 1975-2) Alkaline Phosphatase (test 88 IU/L 39-117 code = 6768-6) AST (SGOT) (test code = 23 IU/L 0-40 1920-8) ALT (SGPT) (test code = 24 IU/L 0-44 1742-6) [facility] Description: Comp. Metabolic Panel ()2020-11-25 00:29:00 Test Item Value Reference Range Interpretation Comments Glucose (test code = 2345-7) 178 mg/dL 65-99 H BUN (test code = 3094-0) 13 mg/dL 6-24 Creatinine (test code = 0.90 mg/dL 0.76-1.27 2160-0) eGFR If NonAfricn Am (test 98 mL/min/1.73 >59 code = 53510-2) eGFR If Africn Am (test code 113 mL/min/1.73 >59 = 13803-0) BUN/Creatinine Ratio (test 14 9-20 code = 3097-3) Sodium (test code = 2951-2) 140 mmol/L 134-144 Potassium (test code = 3.9 mmol/L 3.5-5.2 2823-3) Chloride (test code = 2075-0) 103 mmol/L 96-106 Carbon Dioxide, Total (test 24 mmol/L 20-29 code = 2028-9) Calcium (test code = 28525-6) 9.7 mg/dL 8.7-10.2 Protein, Total (test code = 7.1 g/dL 6.0-8.5 2885-2) Albumin (test code = 1751-7) 4.6 g/dL 3.8-4.9 Globulin, Total (test code = 2.5 g/dL 1.5-4.5 24426-8) A/G Ratio (test code = 1.8 1.2-2.2 1759-0) Bilirubin, Total (test code = 0.5 mg/dL 0.0-1.2 1975-2) Alkaline Phosphatase (test 88 IU/L 39-117 code = 6768-6) AST (SGOT) (test code = 23 IU/L 0-40 1920-8) ALT (SGPT) (test code = 24 IU/L 0-44 1742-6) [facility] Description: Hemoglobin A1c/Hemoglobin.total in Blood 2020-08-20 14:01:00 Test Item Value Reference Range Interpretation Comments Hemoglobin A1c (test code 6.8 % 4.8-5.6 H . Prediabetes: 5.7 - = 4548-4) 6.4 Diabetes: > 6.4 Glycemic contro l for adults with suzanne betes: <7.0

P erformed by:
[facility] ()

[facility] Description: Hemoglobin A1c/Hemoglobin.total in Blood 2020-08-20 14:01:00 Test Item Value Reference Range Interpretation Comments Hemoglobin A1c (test code 6.8 % 4.8-5.6 H . Prediabetes: 5.7 - = 4548-4) 6.4 Diabetes: > 6.4 Glycemic contro l for adults with suzanne betes: <7.0

P erformed by:
[facility] ([place])

[facility] Description: Hemoglobin A1c/Hemoglobin.total in Blood 2020-08-20 14:01:00 Test Item Value Reference Range Interpretation Comments Hemoglobin A1c (test code 6.8 % 4.8-5.6 H . Prediabetes: 5.7 - = 4548-4) 6.4 Diabetes: > 6.4 Glycemic contro l for adults with suzanne betes: <7.0

P erformed by:
[facility] ([place])

[facility] Description: Hemoglobin A1c/Hemoglobin.total in Blood 2020-08-20 14:01:00 Test Item Value Reference Range Interpretation Comments Hemoglobin A1c (test code 6.8 % 4.8-5.6 H . Prediabetes: 5.7 - = 4548-4) 6.4 Diabetes: > 6.4 Glycemic contro l for adults with suzanne betes: <7.0

P erformed by:
[facility] ([place])

[facility] Description: Hemoglobin A1c/Hemoglobin.total in Blood 2020-08-20 14:01:00 Test Item Value Reference Range Interpretation Comments Hemoglobin A1c (test code 6.8 % 4.8-5.6 H . Prediabetes: 5.7 - = 4548-4) 6.4 Diabetes: > 6.4 Glycemic contro l for adults with suzanne betes: <7.0

P erformed by:
[facility] ([place])

[facility] Description: Hemoglobin A1c/Hemoglobin.total in Blood 2020-08-20 14:01:00 Test Item Value Reference Range Interpretation Comments Hemoglobin A1c (test code 6.8 % 4.8-5.6 H . Prediabetes: 5.7 - = 4548-4) 6.4 Diabetes: > 6.4 Glycemic contro l for adults with suzanne betes: <7.0

P erformed by:
[facility] ()

[facility] Description: Hemoglobin A1c/Hemoglobin.total in Blood 2020-08-20 14:01:00 Test Item Value Reference Range Interpretation Comments Hemoglobin A1c (test code 6.8 % 4.8-5.6 H . Prediabetes: 5.7 - = 4548-4) 6.4 Diabetes: > 6.4 Glycemic contro l for adults with suzanne betes: <7.0

P erformed by:
[facility] ()

[facility] Description: Hemoglobin A1c/Hemoglobin.total in Blood 2020-08-20 14:01:00 Test Item Value Reference Range Interpretation Comments Hemoglobin A1c (test code 6.8 % 4.8-5.6 H . Prediabetes: 5.7 - = 4548-4) 6.4 Diabetes: > 6.4 Glycemic contro l for adults with suzanne betes: <7.0

P erformed by:
[facility] ()

[facility] Description: Hemoglobin A1c/Hemoglobin.total in Blood 2020-08-20 14:01:00 Test Item Value Reference Range Interpretation Comments Hemoglobin A1c (test code 6.8 % 4.8-5.6 H . Prediabetes: 5.7 - = 4548-4) 6.4 Diabetes: > 6.4 Glycemic contro l for adults with suzanne betes: <7.0Performed by:[facility] () [facility] Description: Hemoglobin A1c/Hemoglobin.total in Blood 2020-08-20 14:01:00 Test Item Value Reference Range Interpretation Comments Hemoglobin A1c (test code 6.8 % 4.8-5.6 H . Prediabetes: 5.7 - = 4548-4) 6.4 Diabetes: > 6.4 Glycemic contro l for adults with suzanne betes: <7.0Performed by:[facility] ([place]) [facility] Description: Hemoglobin A1c/Hemoglobin.total in Blood 2020-08-20 14:01:00 Test Item Value Reference Range Interpretation Comments Hemoglobin A1c (test code 6.8 % 4.8-5.6 H . Prediabetes: 5.7 - = 4548-4) 6.4 Diabetes: > 6.4 Glycemic contro l for adults with suzanne betes: <7.0Performed by:[facility] ([place]) [facility] Description: Hemoglobin A1c/Hemoglobin.total in Blood 2020-08-20 14:01:00 Test Item Value Reference Range Interpretation Comments Hemoglobin A1c (test code 6.8 % 4.8-5.6 H . Prediabetes: 5.7 - = 4548-4) 6.4 Diabetes: > 6.4 Glycemic contro l for adults with suzanne betes: <7.0Performed by:[facility] ([place]) [facility] Description: Hemoglobin A1c/Hemoglobin.total in Blood 2020-08-20 14:01:00 Test Item Value Reference Range Interpretation Comments Hemoglobin A1c (test code 6.8 % 4.8-5.6 H . Prediabetes: 5.7 - = 4548-4) 6.4 Diabetes: > 6.4 Glycemic contro l for adults with suzanne betes: <7.0Performed by:[facility] ([place]) [facility] Description: Hemoglobin A1c/Hemoglobin.total in Blood 2020-08-20 14:01:00 Test Item Value Reference Range Interpretation Comments Hemoglobin A1c (test code 6.8 % 4.8-5.6 H . Prediabetes: 5.7 - = 4548-4) 6.4 Diabetes: > 6.4 Glycemic contro l for adults with suzanne betes: <7.0Performed by:[facility] ([place]) [facility] Description: Hemoglobin A1c/Hemoglobin.total in Blood 2020-08-20 14:01:00 Test Item Value Reference Range Interpretation Comments Hemoglobin A1c (test code 6.8 % 4.8-5.6 H . Prediabetes: 5.7 - = 4548-4) 6.4 Diabetes: > 6.4 Glycemic contro l for adults with suzanne betes: <7.0Performed by:[facility] ([place]) [facility] Description: Hemoglobin A1c/Hemoglobin.total in Blood 2020-08-20 14:01:00 Test Item Value Reference Range Interpretation Comments Hemoglobin A1c (test code 6.8 % 4.8-5.6 H . Prediabetes: 5.7 - = 4548-4) 6.4 Diabetes: > 6.4 Glycemic contro l for adults with suzanne betes: <7.0Performed by:[facility] ([place]) [facility] Description: Hemoglobin A1c/Hemoglobin.total in Blood 2020-08-20 14:01:00 Test Item Value Reference Range Interpretation Comments Hemoglobin A1c (test code 6.8 % 4.8-5.6 H . Prediabetes: 5.7 - = 4548-4) 6.4 Diabetes: > 6.4 Glycemic contro l for adults with suzanne betes: <7.0Performed by:[facility] ([place]) [facility] Description: Hemoglobin A1c/Hemoglobin.total in Blood 2020-08-20 14:01:00 Test Item Value Reference Range Interpretation Comments Hemoglobin A1c (test code 6.8 % 4.8-5.6 H . Prediabetes: 5.7 - = 4548-4) 6.4 Diabetes: > 6.4 Glycemic contro l for adults with suzanne betes: <7.0

P erformed by:
[facility] ([place])

[facility] Description: Hemoglobin A1c/Hemoglobin.total in Blood 2020-08-20 14:01:00 Test Item Value Reference Range Interpretation Comments Hemoglobin A1c (test code 6.8 % 4.8-5.6 H . Prediabetes: 5.7 - = 4548-4) 6.4 Diabetes: > 6.4 Glycemic contro l for adults with suzanne betes: <7.0

P erformed by:
[facility] ([place])

[facility] Description: Hemoglobin A1c/Hemoglobin.total in Blood 2020-08-20 14:01:00 Test Item Value Reference Range Interpretation Comments Hemoglobin A1c (test code 6.8 % 4.8-5.6 H . Prediabetes: 5.7 - = 4548-4) 6.4 Diabetes: > 6.4 Glycemic contro l for adults with suzanne betes: <7.0

P erformed by:
[facility] ([place])

[facility] Description: Lipid [id number] 01:10:00 Test Item Value Reference Range Interpretation Comments Cholesterol, Total (test code = 119 mg/dL 849-915 6747-3) Triglycerides (test code = 2571-8) 116 mg/dL 0-149 HDL Cholesterol (test code = 37 mg/dL >39 L 2084-9) VLDL Cholesterol Jose Roberto (test code = 21 mg/dL 5-40 92066-0) LDL Chol Calc (NIH) (test code = 61 mg/dL 0-99 15910-9) Comment: (test code = 67726-6) [facility] Description: Lipid [id number] 01:10:00 Test Item Value Reference Range Interpretation Comments Cholesterol, Total (test code = 119 mg/dL 679-462 3318-3) Triglycerides (test code = 2571-8) 116 mg/dL 0-149 HDL Cholesterol (test code = 37 mg/dL >39 L 2084-9) VLDL Cholesterol Jose Roberto (test code = 21 mg/dL 5-40 42538-5) LDL Chol Calc (NIH) (test code = 61 mg/dL 0-99 72448-6) Comment: (test code = 35868-8) [facility] Description: Lipid [id number] 01:10:00 Test Item Value Reference Range Interpretation Comments Cholesterol, Total (test code = 119 mg/dL 997-196 4757-3) Triglycerides (test code = 2571-8) 116 mg/dL 0-149 HDL Cholesterol (test code = 37 mg/dL >39 L 2084-9) VLDL Cholesterol Jose Roberto (test code = 21 mg/dL 5-40 92088-4) LDL Chol Calc (NIH) (test code = 61 mg/dL 0-99 84732-5) Comment: (test code = 88795-0) [facility] Description: Lipid [id number] 01:10:00 Test Item Value Reference Range Interpretation Comments Cholesterol, Total (test code = 119 mg/dL 172-545 3192-3) Triglycerides (test code = 2571-8) 116 mg/dL 0-149 HDL Cholesterol (test code = 37 mg/dL >39 L 5-9) VLDL Cholesterol Jose Roberto (test code = 21 mg/dL 5-40 05204-0) LDL Chol Calc (NIH) (test code = 61 mg/dL 0-99 95961-2) Comment: (test code = 07506-8) [facility] Description: Lipid [id number] 01:10:00 Test Item Value Reference Range Interpretation Comments Cholesterol, Total (test code = 119 mg/dL 622-523 6577-3) Triglycerides (test code = 2571-8) 116 mg/dL 0-149 HDL Cholesterol (test code = 37 mg/dL >39 L 2084-9) VLDL Cholesterol Jose Roberto (test code = 21 mg/dL 5-40 28598-0) LDL Chol Calc (NIH) (test code = 61 mg/dL 0-99 64026-5) Comment: (test code = 03995-5) [facility] Description: Lipid [id number] 01:10:00 Test Item Value Reference Range Interpretation Comments Cholesterol, Total (test code = 119 mg/dL 051-127 7368-3) Triglycerides (test code = 2571-8) 116 mg/dL 0-149 HDL Cholesterol (test code = 37 mg/dL >39 L 2084-9) VLDL Cholesterol Jose Roberto (test code = 21 mg/dL 5-40 19173-2) LDL Chol Calc (NIH) (test code = 61 mg/dL 0-99 42114-7) Comment: (test code = 33671-7) [facility] Description: Lipid [id number] 01:10:00 Test Item Value Reference Range Interpretation Comments Cholesterol, Total (test code = 119 mg/dL 863-370 0408-3) Triglycerides (test code = 2571-8) 116 mg/dL 0-149 HDL Cholesterol (test code = 37 mg/dL >39 L 2084-9) VLDL Cholesterol Jose Roberto (test code = 21 mg/dL 5-40 86607-4) LDL Chol Calc (NIH) (test code = 61 mg/dL 0-99 65040-5) Comment: (test code = 86434-8) [facility] Description: Lipid [id number] 01:10:00 Test Item Value Reference Range Interpretation Comments Cholesterol, Total (test code = 119 mg/dL 497-399 4723-3) Triglycerides (test code = 2571-8) 116 mg/dL 0-149 HDL Cholesterol (test code = 37 mg/dL >39 L 5-9) VLDL Cholesterol Jose Roberto (test code = 21 mg/dL 5-40 48623-1) LDL Chol Calc (NIH) (test code = 61 mg/dL 0-99 76723-3) Comment: (test code = 39698-0) [facility] Description: Lipid [id number] 01:10:00 Test Item Value Reference Range Interpretation Comments Cholesterol, Total (test code = 119 mg/dL 084-273 0967-3) Triglycerides (test code = 2571-8) 116 mg/dL 0-149 HDL Cholesterol (test code = 37 mg/dL >39 L 5-9) VLDL Cholesterol Jose Roberto (test code = 21 mg/dL 5-40 05934-1) LDL Chol Calc (NIH) (test code = 61 mg/dL 0-99 09630-7) Comment: (test code = 91373-3) [facility] Description: Lipid [id number] 01:10:00 Test Item Value Reference Range Interpretation Comments Cholesterol, Total (test code = 119 mg/dL 838-864 9163-3) Triglycerides (test code = 2571-8) 116 mg/dL 0-149 HDL Cholesterol (test code = 37 mg/dL >39 L 5-9) VLDL Cholesterol Jose Roberto (test code = 21 mg/dL 5-40 17640-5) LDL Chol Calc (NIH) (test code = 61 mg/dL 0-99 30440-1) Comment: (test code = 11816-8) [facility] Description: Lipid [id number] 01:10:00 Test Item Value Reference Range Interpretation Comments Cholesterol, Total (test code = 119 mg/dL 738-356 3881-3) Triglycerides (test code = 2571-8) 116 mg/dL 0-149 HDL Cholesterol (test code = 37 mg/dL >39 L 5-9) VLDL Cholesterol Jose Roberto (test code = 21 mg/dL 5-40 56001-7) LDL Chol Calc (NIH) (test code = 61 mg/dL 0-99 09908-8) Comment: (test code = 38227-4) [facility] Description: Lipid [id number] 01:10:00 Test Item Value Reference Range Interpretation Comments Cholesterol, Total (test code = 119 mg/dL 607-090 2801-3) Triglycerides (test code = 2571-8) 116 mg/dL 0-149 HDL Cholesterol (test code = 37 mg/dL >39 L 2085-9) VLDL Cholesterol Jose Roberto (test code = 21 mg/dL 5-40 21427-5) LDL Chol Calc (NIH) (test code = 61 mg/dL 0-99 35906-2) Comment: (test code = 54886-0) [facility] Description: Lipid [id number] 01:10:00 Test Item Value Reference Range Interpretation Comments Cholesterol, Total (test code = 119 mg/dL 040-617 7185-3) Triglycerides (test code = 2571-8) 116 mg/dL 0-149 HDL Cholesterol (test code = 37 mg/dL >39 L 5-9) VLDL Cholesterol Jose Roberto (test code = 21 mg/dL 5-40 16130-8) LDL Chol Calc (NIH) (test code = 61 mg/dL 0-99 97643-2) Comment: (test code = 66700-5) [facility] Description: Lipid [id number] 01:10:00 Test Item Value Reference Range Interpretation Comments Cholesterol, Total (test code = 119 mg/dL 470-700 9875-3) Triglycerides (test code = 2571-8) 116 mg/dL 0-149 HDL Cholesterol (test code = 37 mg/dL >39 L 5-9) VLDL Cholesterol Jose Roberto (test code = 21 mg/dL 5-40 11224-2) LDL Chol Calc (NIH) (test code = 61 mg/dL 0-99 03357-5) Comment: (test code = 40624-2) [facility] Description: Lipid [id number] 01:10:00 Test Item Value Reference Range Interpretation Comments Cholesterol, Total (test code = 119 mg/dL 801-626 4721-3) Triglycerides (test code = 2571-8) 116 mg/dL 0-149 HDL Cholesterol (test code = 37 mg/dL >39 L 2085-9) VLDL Cholesterol Jose Roberto (test code = 21 mg/dL 5-40 82738-0) LDL Chol Calc (NIH) (test code = 61 mg/dL 0-99 03454-2) Comment: (test code = 99284-0) [facility] Description: Lipid [id number] 01:10:00 Test Item Value Reference Range Interpretation Comments Cholesterol, Total (test code = 119 mg/dL 885-754 6705-3) Triglycerides (test code = 2571-8) 116 mg/dL 0-149 HDL Cholesterol (test code = 37 mg/dL >39 L 2085-9) VLDL Cholesterol Jose Roberto (test code = 21 mg/dL 5-40 02094-1) LDL Chol Calc (NIH) (test code = 61 mg/dL 0-99 73352-8) Comment: (test code = 84874-1) [facility] Description: Lipid [id number] 01:10:00 Test Item Value Reference Range Interpretation Comments Cholesterol, Total (test code = 119 mg/dL 521-346 7909-3) Triglycerides (test code = 2571-8) 116 mg/dL 0-149 HDL Cholesterol (test code = 37 mg/dL >39 L 2085-9) VLDL Cholesterol Jose Roberto (test code = 21 mg/dL 5-40 16503-0) LDL Chol Calc (NIH) (test code = 61 mg/dL 0-99 79127-3) Comment: (test code = 99930-5) [facility] Description: Lipid [id number] 01:10:00 Test Item Value Reference Range Interpretation Comments Cholesterol, Total (test code = 119 mg/dL 881-811 7107-3) Triglycerides (test code = 2571-8) 116 mg/dL 0-149 HDL Cholesterol (test code = 37 mg/dL >39 L 2085-9) VLDL Cholesterol Jose Roberto (test code = 21 mg/dL 5-40 08124-6) LDL Chol Calc (NIH) (test code = 61 mg/dL 0-99 63121-9) Comment: (test code = 44879-6) [facility] Description: Lipid [id number] 01:10:00 Test Item Value Reference Range Interpretation Comments Cholesterol, Total (test code = 119 mg/dL 744-700 7331-3) Triglycerides (test code = 2571-8) 116 mg/dL 0-149 HDL Cholesterol (test code = 37 mg/dL >39 L 2084-9) VLDL Cholesterol Jose Roberto (test code = 21 mg/dL 5-40 36324-4) LDL Chol Calc (NIH) (test code = 61 mg/dL 0-99 91693-1) Comment: (test code = 20914-3) [facility] Description: Lipid [id number] 01:10:00 Test Item Value Reference Range Interpretation Comments Cholesterol, Total (test code = 119 mg/dL 351-763 2443-3) Triglycerides (test code = 2571-8) 116 mg/dL 0-149 HDL Cholesterol (test code = 37 mg/dL >39 L 9) VLDL Cholesterol Jose Roberto (test code = 21 mg/dL 5-40 25734-2) LDL Chol Calc (NIH) (test code = 61 mg/dL 0-99 11877-0) Comment: (test code = 18023-3) [facility] Description: Comp. Metabolic Panel (14)2020-08-20 00:36:00 Test Item Value Reference Range Interpretation Comments Glucose (test code = 2345-7) 111 mg/dL 65-99 H BUN (test code = 3094-0) 13 mg/dL 6-24 Creatinine (test code = 1.06 mg/dL 0.76-1.27 2160-0) eGFR If NonAfricn Am (test 81 mL/min/1.73 >59 code = 97724-8) eGFR If Africn Am (test code = 93 mL/min/1.73 >59 56770-8) BUN/Creatinine Ratio (test 12 - code = 3097-3) Sodium (test code = 2951-2) 141 mmol/L 134-144 Potassium (test code = 2823-3) 3.9 mmol/L 3.5-5.2 Chloride (test code = 2075-0) 103 mmol/L 96-106 Carbon Dioxide, Total (test 25 mmol/L 20-29 code = 2027-9) Calcium (test code = 14791-5) 9.9 mg/dL 8.7-10.2 Protein, Total (test code = 7.4 g/dL 6.0-8.5 2885-2) Albumin (test code = 1751-7) 4.8 g/dL 3.8-4.9 Globulin, Total (test code = 2.6 g/dL 1.5-4.5 94931-7) A/G Ratio (test code = 1759-0) 1.8 1.2-2.2 Bilirubin, Total (test code = 0.5 mg/dL 0.0-1.2 1975-2) Alkaline Phosphatase (test 89 IU/L 39-117 code = 6768-6) AST (SGOT) (test code = 24 IU/L 0-40 1920-8) ALT (SGPT) (test code = 28 IU/L 0-44 1742-6) [facility] Description: Comp. Metabolic Panel (14)2020-08-20 00:36:00 Test Item Value Reference Range Interpretation Comments Glucose (test code = 2345-7) 111 mg/dL 65-99 H BUN (test code = 3094-0) 13 mg/dL 6-24 Creatinine (test code = 1.06 mg/dL 0.76-1.27 2160-0) eGFR If NonAfricn Am (test 81 mL/min/1.73 >59 code = 38400-1) eGFR If Africn Am (test code = 93 mL/min/1.73 >59 00197-2) BUN/Creatinine Ratio (test 12 - code = 3097-3) Sodium (test code = 2951-2) 141 mmol/L 134-144 Potassium (test code = 2823-3) 3.9 mmol/L 3.5-5.2 Chloride (test code = 2075-0) 103 mmol/L 96-106 Carbon Dioxide, Total (test 25 mmol/L 20-29 code = 2027-9) Calcium (test code = 52495-4) 9.9 mg/dL 8.7-10.2 Protein, Total (test code = 7.4 g/dL 6.0-8.5 2885-2) Albumin (test code = 1751-7) 4.8 g/dL 3.8-4.9 Globulin, Total (test code = 2.6 g/dL 1.5-4.5 20338-3) A/G Ratio (test code = 1759-0) 1.8 1.2-2.2 Bilirubin, Total (test code = 0.5 mg/dL 0.0-1.2 1974-09) Alkaline Phosphatase (test 89 IU/L 39-117 code = 6768-6) AST (SGOT) (test code = 24 IU/L 0-40 1920-8) ALT (SGPT) (test code = 28 IU/L 0-44 1742-6) [facility] Description: Comp. Metabolic Panel (142020-08-20 00:36:00 Test Item Value Reference Range Interpretation Comments Glucose (test code = 2345-7) 111 mg/dL 65-99 H BUN (test code = 3094-0) 13 mg/dL 6-24 Creatinine (test code = 1.06 mg/dL 0.76-1.27 2160-0) eGFR If NonAfricn Am (test 81 mL/min/1.73 >59 code = 06544-0) eGFR If Africn Am (test code = 93 mL/min/1.73 >59 87441-1) BUN/Creatinine Ratio (test 12 - code = 3097-3) Sodium (test code = 2951-2) 141 mmol/L 134-144 Potassium (test code = 2823-3) 3.9 mmol/L 3.5-5.2 Chloride (test code = 2075-0) 103 mmol/L 96-106 Carbon Dioxide, Total (test 25 mmol/L 20-29 code = 2027-9) Calcium (test code = 82154-4) 9.9 mg/dL 8.7-10.2 Protein, Total (test code = 7.4 g/dL 6.0-8.5 2885-2) Albumin (test code = 1751-7) 4.8 g/dL 3.8-4.9 Globulin, Total (test code = 2.6 g/dL 1.5-4.5 33049-7) A/G Ratio (test code = 1759-0) 1.8 1.2-2.2 Bilirubin, Total (test code = 0.5 mg/dL 0.0-1.2 1974-09) Alkaline Phosphatase (test 89 IU/L 39-117 code = 6768-6) AST (SGOT) (test code = 24 IU/L 0-40 0-8) ALT (SGPT) (test code = 28 IU/L 0-44 1742-6) [facility] Description: Comp. Metabolic Panel (14)2020-08-20 00:36:00 Test Item Value Reference Range Interpretation Comments Glucose (test code = 2345-7) 111 mg/dL 65-99 H BUN (test code = 3094-0) 13 mg/dL 6-24 Creatinine (test code = 1.06 mg/dL 0.76-1.27 2160-0) eGFR If NonAfricn Am (test 81 mL/min/1.73 >59 code = 31107-3) eGFR If Africn Am (test code = 93 mL/min/1.73 >59 10347-1) BUN/Creatinine Ratio (test 12 05-01 code = 3097-3) Sodium (test code = 2951-2) 141 mmol/L 134-144 Potassium (test code = 2823-3) 3.9 mmol/L 3.5-5.2 Chloride (test code = 2075-0) 103 mmol/L 96-106 Carbon Dioxide, Total (test 25 mmol/L 20-29 code = 2027-9) Calcium (test code = 50503-7) 9.9 mg/dL 8.7-10.2 Protein, Total (test code = 7.4 g/dL 6.0-8.5 2885-2) Albumin (test code = 1751-7) 4.8 g/dL 3.8-4.9 Globulin, Total (test code = 2.6 g/dL 1.5-4.5 26239-1) A/G Ratio (test code = 1759-0) 1.8 1.2-2.2 Bilirubin, Total (test code = 0.5 mg/dL 0.0-1.2 1975-2) Alkaline Phosphatase (test 89 IU/L 39-117 code = 6768-6) AST (SGOT) (test code = 24 IU/L 0-40 1920-8) ALT (SGPT) (test code = 28 IU/L 0-44 1742-6) [facility] Description: Comp. Metabolic Panel (14)2020-08-20 00:36:00 Test Item Value Reference Range Interpretation Comments Glucose (test code = 2345-7) 111 mg/dL 65-99 H BUN (test code = 3094-0) 13 mg/dL 6-24 Creatinine (test code = 1.06 mg/dL 0.76-1.27 2160-0) eGFR If NonAfricn Am (test 81 mL/min/1.73 >59 code = 66586-4) eGFR If Africn Am (test code = 93 mL/min/1.73 >59 99623-5) BUN/Creatinine Ratio (test 12 - code = 3097-3) Sodium (test code = 2951-2) 141 mmol/L 134-144 Potassium (test code = 2823-3) 3.9 mmol/L 3.5-5.2 Chloride (test code = 2075-0) 103 mmol/L 96-106 Carbon Dioxide, Total (test 25 mmol/L 20-29 code = 2027-9) Calcium (test code = 36473-2) 9.9 mg/dL 8.7-10.2 Protein, Total (test code = 7.4 g/dL 6.0-8.5 2885-2) Albumin (test code = 1751-7) 4.8 g/dL 3.8-4.9 Globulin, Total (test code = 2.6 g/dL 1.5-4.5 51150-4) A/G Ratio (test code = 1759-0) 1.8 1.2-2.2 Bilirubin, Total (test code = 0.5 mg/dL 0.0-1.2 1975-2) Alkaline Phosphatase (test 89 IU/L 39-117 code = 6768-6) AST (SGOT) (test code = 24 IU/L 0-40 1920-8) ALT (SGPT) (test code = 28 IU/L 0-44 1742-6) [facility] Description: Comp. Metabolic Panel (14)2020-08-20 00:36:00 Test Item Value Reference Range Interpretation Comments Glucose (test code = 2345-7) 111 mg/dL 65-99 H BUN (test code = 3094-0) 13 mg/dL 6-24 Creatinine (test code = 1.06 mg/dL 0.76-1.27 2160-0) eGFR If NonAfricn Am (test 81 mL/min/1.73 >59 code = 55511-8) eGFR If Africn Am (test code = 93 mL/min/1.73 >59 34773-9) BUN/Creatinine Ratio (test 05-01 code = 3097-3) Sodium (test code = 2951-2) 141 mmol/L 134-144 Potassium (test code = 2823-3) 3.9 mmol/L 3.5-5.2 Chloride (test code = 2075-0) 103 mmol/L 96-106 Carbon Dioxide, Total (test 25 mmol/L 20-29 code = 2027-9) Calcium (test code = 07403-7) 9.9 mg/dL 8.7-10.2 Protein, Total (test code = 7.4 g/dL 6.0-8.5 2885-2) Albumin (test code = 1751-7) 4.8 g/dL 3.8-4.9 Globulin, Total (test code = 2.6 g/dL 1.5-4.5 56270-7) A/G Ratio (test code = 1759-0) 1.8 1.2-2.2 Bilirubin, Total (test code = 0.5 mg/dL 0.0-1.2 1975-2) Alkaline Phosphatase (test 89 IU/L 39-117 code = 6768-6) AST (SGOT) (test code = 24 IU/L 0-40 1920-8) ALT (SGPT) (test code = 28 IU/L 0-44 1742-6) [facility] Description: Comp. Metabolic Panel (14)2020-08-20 00:36:00 Test Item Value Reference Range Interpretation Comments Glucose (test code = 2345-7) 111 mg/dL 65-99 H BUN (test code = 3094-0) 13 mg/dL 6-24 Creatinine (test code = 1.06 mg/dL 0.76-1.27 2160-0) eGFR If NonAfricn Am (test 81 mL/min/1.73 >59 code = 28617-7) eGFR If Africn Am (test code = 93 mL/min/1.73 >59 93647-1) BUN/Creatinine Ratio (test 05-01 code = 3097-3) Sodium (test code = 2951-2) 141 mmol/L 134-144 Potassium (test code = 2823-3) 3.9 mmol/L 3.5-5.2 Chloride (test code = 2075-0) 103 mmol/L 96-106 Carbon Dioxide, Total (test 25 mmol/L - code = 2028-04) Calcium (test code = 68707-9) 9.9 mg/dL 8.7-10.2 Protein, Total (test code = 7.4 g/dL 6.0-8.5 2885-2) Albumin (test code = 1751-7) 4.8 g/dL 3.8-4.9 Globulin, Total (test code = 2.6 g/dL 1.5-4.5 06452-9) A/G Ratio (test code = 1759-0) 1.8 1.2-2.2 Bilirubin, Total (test code = 0.5 mg/dL 0.0-1.2 1975-2) Alkaline Phosphatase (test 89 IU/L 39-117 code = 6768-6) AST (SGOT) (test code = 24 IU/L 0-40 1920-8) ALT (SGPT) (test code = 28 IU/L 0-44 1742-6) [facility] Description: Comp. Metabolic Panel (14)2020-08-20 00:36:00 Test Item Value Reference Range Interpretation Comments Glucose (test code = 2345-7) 111 mg/dL 65-99 H BUN (test code = 3094-0) 13 mg/dL 6-24 Creatinine (test code = 1.06 mg/dL 0.76-1.27 2160-0) eGFR If NonAfricn Am (test 81 mL/min/1.73 >59 code = 08008-5) eGFR If Africn Am (test code = 93 mL/min/1.73 >59 47459-3) BUN/Creatinine Ratio (test 12 05-01 code = 3097-3) Sodium (test code = 2951-2) 141 mmol/L 134-144 Potassium (test code = 2823-3) 3.9 mmol/L 3.5-5.2 Chloride (test code = 2075-0) 103 mmol/L 96-106 Carbon Dioxide, Total (test 25 mmol/L - code = 2028-04) Calcium (test code = 33247-0) 9.9 mg/dL 8.7-10.2 Protein, Total (test code = 7.4 g/dL 6.0-8.5 2885-2) Albumin (test code = 1751-7) 4.8 g/dL 3.8-4.9 Globulin, Total (test code = 2.6 g/dL 1.5-4.5 60959-9) A/G Ratio (test code = 1759-0) 1.8 1.2-2.2 Bilirubin, Total (test code = 0.5 mg/dL 0.0-1.2 1975-2) Alkaline Phosphatase (test 89 IU/L 39-117 code = 6768-6) AST (SGOT) (test code = 24 IU/L 0-40 1920-8) ALT (SGPT) (test code = 28 IU/L 0-44 1742-6) [facility] Description: Comp. Metabolic Panel (142020-08-20 00:36:00 Test Item Value Reference Range Interpretation Comments Glucose (test code = 2345-7) 111 mg/dL 65-99 H BUN (test code = 3094-0) 13 mg/dL 6-24 Creatinine (test code = 1.06 mg/dL 0.76-1.27 2160-0) eGFR If NonAfricn Am (test 81 mL/min/1.73 >59 code = 31055-1) eGFR If Africn Am (test code = 93 mL/min/1.73 >59 70484-4) BUN/Creatinine Ratio (test 12 05-01 code = 3097-3) Sodium (test code = 2951-2) 141 mmol/L 134-144 Potassium (test code = 2823-3) 3.9 mmol/L 3.5-5.2 Chloride (test code = 2075-0) 103 mmol/L 96-106 Carbon Dioxide, Total (test 25 mmol/L 20-29 code = 2027-9) Calcium (test code = 72953-2) 9.9 mg/dL 8.7-10.2 Protein, Total (test code = 7.4 g/dL 6.0-8.5 2885-2) Albumin (test code = 1751-7) 4.8 g/dL 3.8-4.9 Globulin, Total (test code = 2.6 g/dL 1.5-4.5 19589-3) A/G Ratio (test code = 1759-0) 1.8 1.2-2.2 Bilirubin, Total (test code = 0.5 mg/dL 0.0-1.2 1975-2) Alkaline Phosphatase (test 89 IU/L 39-117 code = 6768-6) AST (SGOT) (test code = 24 IU/L 0-40 1920-8) ALT (SGPT) (test code = 28 IU/L 0-44 1742-6) [facility] Description: Comp. Metabolic Panel (14)2020-08-20 00:36:00 Test Item Value Reference Range Interpretation Comments Glucose (test code = 2345-7) 111 mg/dL 65-99 H BUN (test code = 3094-0) 13 mg/dL 6-24 Creatinine (test code = 1.06 mg/dL 0.76-1.27 2160-0) eGFR If NonAfricn Am (test 81 mL/min/1.73 >59 code = 44817-8) eGFR If Africn Am (test code = 93 mL/min/1.73 >59 83242-1) BUN/Creatinine Ratio (test 12 - code = 3097-3) Sodium (test code = 2951-2) 141 mmol/L 134-144 Potassium (test code = 2823-3) 3.9 mmol/L 3.5-5.2 Chloride (test code = 2075-0) 103 mmol/L 96-106 Carbon Dioxide, Total (test 25 mmol/L 20-29 code = 2027-9) Calcium (test code = 21687-3) 9.9 mg/dL 8.7-10.2 Protein, Total (test code = 7.4 g/dL 6.0-8.5 2885-2) Albumin (test code = 1751-7) 4.8 g/dL 3.8-4.9 Globulin, Total (test code = 2.6 g/dL 1.5-4.5 57199-7) A/G Ratio (test code = 1759-0) 1.8 1.2-2.2 Bilirubin, Total (test code = 0.5 mg/dL 0.0-1.2 1974-) Alkaline Phosphatase (test 89 IU/L 39-117 code = 6768-6) AST (SGOT) (test code = 24 IU/L 0-40 1920-8) ALT (SGPT) (test code = 28 IU/L 0-44 1742-6) [facility] Description: Comp. Metabolic Panel (14)2020-08-20 00:36:00 Test Item Value Reference Range Interpretation Comments Glucose (test code = 2345-7) 111 mg/dL 65-99 H BUN (test code = 3094-0) 13 mg/dL 6-24 Creatinine (test code = 1.06 mg/dL 0.76-1.27 2160-0) eGFR If NonAfricn Am (test 81 mL/min/1.73 >59 code = 17522-3) eGFR If Africn Am (test code = 93 mL/min/1.73 >59 14892-4) BUN/Creatinine Ratio (test 12 - code = 3097-3) Sodium (test code = 2951-2) 141 mmol/L 134-144 Potassium (test code = 2823-3) 3.9 mmol/L 3.5-5.2 Chloride (test code = 2075-0) 103 mmol/L 96-106 Carbon Dioxide, Total (test 25 mmol/L 20-29 code = 2027-9) Calcium (test code = 68555-9) 9.9 mg/dL 8.7-10.2 Protein, Total (test code = 7.4 g/dL 6.0-8.5 2885-2) Albumin (test code = 1751-7) 4.8 g/dL 3.8-4.9 Globulin, Total (test code = 2.6 g/dL 1.5-4.5 13923-3) A/G Ratio (test code = 1759-0) 1.8 1.2-2.2 Bilirubin, Total (test code = 0.5 mg/dL 0.0-1.2 1974-09) Alkaline Phosphatase (test 89 IU/L 39-117 code = 6768-6) AST (SGOT) (test code = 24 IU/L 0-40 0-8) ALT (SGPT) (test code = 28 IU/L 0-44 1742-6) [facility]: Comp. Metabolic Panel (14)2020-08-20 00:36:00 Test Item Value Reference Range Interpretation Comments Glucose (test code = 2345-7) 111 mg/dL 65-99 H BUN (test code = 3094-0) 13 mg/dL 6-24 Creatinine (test code = 1.06 mg/dL 0.76-1.27 2160-0) eGFR If NonAfricn Am (test 81 mL/min/1.73 >59 code = 32722-8) eGFR If Africn Am (test code = 93 mL/min/1.73 >59 16435-0) BUN/Creatinine Ratio (test 12 - code = 3097-3) Sodium (test code = 2951-2) 141 mmol/L 134-144 Potassium (test code = 2823-3) 3.9 mmol/L 3.5-5.2 Chloride (test code = 2075-0) 103 mmol/L 96-106 Carbon Dioxide, Total (test 25 mmol/L 20-29 code = 2027-9) Calcium (test code = 40213-7) 9.9 mg/dL 8.7-10.2 Protein, Total (test code = 7.4 g/dL 6.0-8.5 2885-2) Albumin (test code = 1751-7) 4.8 g/dL 3.8-4.9 Globulin, Total (test code = 2.6 g/dL 1.5-4.5 05160-6) A/G Ratio (test code = 1759-0) 1.8 1.2-2.2 Bilirubin, Total (test code = 0.5 mg/dL 0.0-1.2 1975-2) Alkaline Phosphatase (test 89 IU/L 39-117 code = 6768-6) AST (SGOT) (test code = 24 IU/L 0-40 1920-8) ALT (SGPT) (test code = 28 IU/L 0-44 1742-6) [facility] Description: Comp. Metabolic Panel (14)2020-08-20 00:36:00 Test Item Value Reference Range Interpretation Comments Glucose (test code = 2345-7) 111 mg/dL 65-99 H BUN (test code = 3094-0) 13 mg/dL 6-24 Creatinine (test code = 1.06 mg/dL 0.76-1.27 2160-0) eGFR If NonAfricn Am (test 81 mL/min/1.73 >59 code = 79357-5) eGFR If Africn Am (test code = 93 mL/min/1.73 >59 47642-3) BUN/Creatinine Ratio (test 12 -20 code = 3097-3) Sodium (test code = 2951-2) 141 mmol/L 134-144 Potassium (test code = 2823-3) 3.9 mmol/L 3.5-5.2 Chloride (test code = 2075-0) 103 mmol/L 96-106 Carbon Dioxide, Total (test 25 mmol/L 20-29 code = 2027-9) Calcium (test code = 93077-8) 9.9 mg/dL 8.7-10.2 Protein, Total (test code = 7.4 g/dL 6.0-8.5 2885-2) Albumin (test code = 1751-7) 4.8 g/dL 3.8-4.9 Globulin, Total (test code = 2.6 g/dL 1.5-4.5 49997-1) A/G Ratio (test code = 1759-0) 1.8 1.2-2.2 Bilirubin, Total (test code = 0.5 mg/dL 0.0-1.2 1975-2) Alkaline Phosphatase (test 89 IU/L 39-117 code = 6768-6) AST (SGOT) (test code = 24 IU/L 0-40 1920-8) ALT (SGPT) (test code = 28 IU/L 0-44 1742-6) [facility] Description: Comp. Metabolic Panel (14)2020-08-20 00:36:00 Test Item Value Reference Range Interpretation Comments Glucose (test code = 2345-7) 111 mg/dL 65-99 H BUN (test code = 3094-0) 13 mg/dL 6-24 Creatinine (test code = 1.06 mg/dL 0.76-1.27 2160-0) eGFR If NonAfricn Am (test 81 mL/min/1.73 >59 code = 79850-4) eGFR If Africn Am (test code = 93 mL/min/1.73 >59 25303-0) BUN/Creatinine Ratio (test 05-01 code = 3097-3) Sodium (test code = 2951-2) 141 mmol/L 134-144 Potassium (test code = 2823-3) 3.9 mmol/L 3.5-5.2 Chloride (test code = 2075-0) 103 mmol/L 96-106 Carbon Dioxide, Total (test 25 mmol/L 20-29 code = 2027-9) Calcium (test code = 11692-6) 9.9 mg/dL 8.7-10.2 Protein, Total (test code = 7.4 g/dL 6.0-8.5 2885-2) Albumin (test code = 1751-7) 4.8 g/dL 3.8-4.9 Globulin, Total (test code = 2.6 g/dL 1.5-4.5 47764-2) A/G Ratio (test code = 1759-0) 1.8 1.2-2.2 Bilirubin, Total (test code = 0.5 mg/dL 0.0-1.2 1975-2) Alkaline Phosphatase (test 89 IU/L 39-117 code = 6768-6) AST (SGOT) (test code = 24 IU/L 0-40 1920-8) ALT (SGPT) (test code = 28 IU/L 0-44 1742-6) [facility] Description: Comp. Metabolic Panel (14)2020-08-20 00:36:00 Test Item Value Reference Range Interpretation Comments Glucose (test code = 2345-7) 111 mg/dL 65-99 H BUN (test code = 3094-0) 13 mg/dL 6-24 Creatinine (test code = 1.06 mg/dL 0.76-1.27 2160-0) eGFR If NonAfricn Am (test 81 mL/min/1.73 >59 code = 42575-5) eGFR If Africn Am (test code = 93 mL/min/1.73 >59 03427-7) BUN/Creatinine Ratio (test 05-01 code = 3097-3) Sodium (test code = 2951-2) 141 mmol/L 134-144 Potassium (test code = 2823-3) 3.9 mmol/L 3.5-5.2 Chloride (test code = 2075-0) 103 mmol/L 96-106 Carbon Dioxide, Total (test 25 mmol/L - code = 2027-) Calcium (test code = 62898-2) 9.9 mg/dL 8.7-10.2 Protein, Total (test code = 7.4 g/dL 6.0-8.5 2885-2) Albumin (test code = 1751-7) 4.8 g/dL 3.8-4.9 Globulin, Total (test code = 2.6 g/dL 1.5-4.5 49403-9) A/G Ratio (test code = 1759-0) 1.8 1.2-2.2 Bilirubin, Total (test code = 0.5 mg/dL 0.0-1.2 1975-2) Alkaline Phosphatase (test 89 IU/L 39-117 code = 6768-6) AST (SGOT) (test code = 24 IU/L 0-40 1920-8) ALT (SGPT) (test code = 28 IU/L 0-44 1742-6) [facility] Description: Comp. Metabolic Panel (14)2020-08-20 00:36:00 Test Item Value Reference Range Interpretation Comments Glucose (test code = 2345-7) 111 mg/dL 65-99 H BUN (test code = 3094-0) 13 mg/dL 6-24 Creatinine (test code = 1.06 mg/dL 0.76-1.27 2160-0) eGFR If NonAfricn Am (test 81 mL/min/1.73 >59 code = 83889-9) eGFR If Africn Am (test code = 93 mL/min/1.73 >59 70808-1) BUN/Creatinine Ratio (test 12 05-01 code = 3097-3) Sodium (test code = 2951-2) 141 mmol/L 134-144 Potassium (test code = 2823-3) 3.9 mmol/L 3.5-5.2 Chloride (test code = 2075-0) 103 mmol/L 96-106 Carbon Dioxide, Total (test 25 mmol/L - code = 2027-9) Calcium (test code = 50552-2) 9.9 mg/dL 8.7-10.2 Protein, Total (test code = 7.4 g/dL 6.0-8.5 2885-2) Albumin (test code = 1751-7) 4.8 g/dL 3.8-4.9 Globulin, Total (test code = 2.6 g/dL 1.5-4.5 45400-7) A/G Ratio (test code = 1759-0) 1.8 1.2-2.2 Bilirubin, Total (test code = 0.5 mg/dL 0.0-1.2 1975-2) Alkaline Phosphatase (test 89 IU/L 39-117 code = 6768-6) AST (SGOT) (test code = 24 IU/L 0-40 1920-8) ALT (SGPT) (test code = 28 IU/L 0-44 1742-6) [facility] Description: Comp. Metabolic Panel (14)2020-08-20 00:36:00 Test Item Value Reference Range Interpretation Comments Glucose (test code = 2345-7) 111 mg/dL 65-99 H BUN (test code = 3094-0) 13 mg/dL 6-24 Creatinine (test code = 1.06 mg/dL 0.76-1.27 2160-0) eGFR If NonAfricn Am (test 81 mL/min/1.73 >59 code = 78087-2) eGFR If Africn Am (test code = 93 mL/min/1.73 >59 36048-4) BUN/Creatinine Ratio (test 12 - code = 3097-3) Sodium (test code = 2951-2) 141 mmol/L 134-144 Potassium (test code = 2823-3) 3.9 mmol/L 3.5-5.2 Chloride (test code = 2075-0) 103 mmol/L 96-106 Carbon Dioxide, Total (test 25 mmol/L 20-29 code = 2027-9) Calcium (test code = 38595-0) 9.9 mg/dL 8.7-10.2 Protein, Total (test code = 7.4 g/dL 6.0-8.5 2885-2) Albumin (test code = 1751-7) 4.8 g/dL 3.8-4.9 Globulin, Total (test code = 2.6 g/dL 1.5-4.5 19057-3) A/G Ratio (test code = 1759-0) 1.8 1.2-2.2 Bilirubin, Total (test code = 0.5 mg/dL 0.0-1.2 1975-2) Alkaline Phosphatase (test 89 IU/L 39-117 code = 6768-6) AST (SGOT) (test code = 24 IU/L 0-40 1920-8) ALT (SGPT) (test code = 28 IU/L 0-44 1742-6) [facility] Description: Comp. Metabolic Panel (14)2020-08-20 00:36:00 Test Item Value Reference Range Interpretation Comments Glucose (test code = 2345-7) 111 mg/dL 65-99 H BUN (test code = 3094-0) 13 mg/dL 6-24 Creatinine (test code = 1.06 mg/dL 0.76-1.27 2160-0) eGFR If NonAfricn Am (test 81 mL/min/1.73 >59 code = 57621-8) eGFR If Africn Am (test code = 93 mL/min/1.73 >59 69783-6) BUN/Creatinine Ratio (test 12 - code = 3097-3) Sodium (test code = 2951-2) 141 mmol/L 134-144 Potassium (test code = 2823-3) 3.9 mmol/L 3.5-5.2 Chloride (test code = 2075-0) 103 mmol/L 96-106 Carbon Dioxide, Total (test 25 mmol/L 20-29 code = 2027-9) Calcium (test code = 72510-1) 9.9 mg/dL 8.7-10.2 Protein, Total (test code = 7.4 g/dL 6.0-8.5 2885-2) Albumin (test code = 1751-7) 4.8 g/dL 3.8-4.9 Globulin, Total (test code = 2.6 g/dL 1.5-4.5 60732-4) A/G Ratio (test code = 1759-0) 1.8 1.2-2.2 Bilirubin, Total (test code = 0.5 mg/dL 0.0-1.2 1974-09) Alkaline Phosphatase (test 89 IU/L 39-117 code = 6768-6) AST (SGOT) (test code = 24 IU/L 0-40 1920-8) ALT (SGPT) (test code = 28 IU/L 0-44 1742-6) [facility]: Comp[facility] Met[facility] (14)2020-08-20 00:36:00 Test Item Value Reference Range Interpretation Comments Glucose (test code = 2345-7) 111 mg/dL 65-99 H BUN (test code = 3094-0) 13 mg/dL 6-24 Creatinine (test code = 1.06 mg/dL 0.76-1.27 2160-0) eGFR If NonAfricn Am (test 81 mL/min/1.73 >59 code = 08817-7) eGFR If Africn Am (test code = 93 mL/min/1.73 >59 97502-2) BUN/Creatinine Ratio (test 12 - code = 3097-3) Sodium (test code = 2951-2) 141 mmol/L 134-144 Potassium (test code = 2823-3) 3.9 mmol/L 3.5-5.2 Chloride (test code = 2075-0) 103 mmol/L 96-106 Carbon Dioxide, Total (test 25 mmol/L 20-29 code = 2027-9) Calcium (test code = 79025-7) 9.9 mg/dL 8.7-10.2 Protein, Total (test code = 7.4 g/dL 6.0-8.5 2885-2) Albumin (test code = 1751-7) 4.8 g/dL 3.8-4.9 Globulin, Total (test code = 2.6 g/dL 1.5-4.5 17079-0) A/G Ratio (test code = 1759-0) 1.8 1.2-2.2 Bilirubin, Total (test code = 0.5 mg/dL 0.0-1.2 1974-09) Alkaline Phosphatase (test 89 IU/L 39-117 code = 6768-6) AST (SGOT) (test code = 24 IU/L 0-40 1920-8) ALT (SGPT) (test code = 28 IU/L 0-44 1742-6) [facility]: Comp. Metabolic Panel (14)2020-08-20 00:36:00 Test Item Value Reference Range Interpretation Comments Glucose (test code = 2345-7) 111 mg/dL 65-99 H BUN (test code = 3094-0) 13 mg/dL 6-24 Creatinine (test code = 1.06 mg/dL 0.76-1.27 2160-0) eGFR If NonAfricn Am (test 81 mL/min/1.73 >59 code = 49260-3) eGFR If Africn Am (test code = 93 mL/min/1.73 >59 55065-6) BUN/Creatinine Ratio (test 12 - code = 3097-3) Sodium (test code = 2951-2) 141 mmol/L 134-144 Potassium (test code = 2823-3) 3.9 mmol/L 3.5-5.2 Chloride (test code = 2075-0) 103 mmol/L 96-106 Carbon Dioxide, Total (test 25 mmol/L 20-29 code = 2027-9) Calcium (test code = 59952-7) 9.9 mg/dL 8.7-10.2 Protein, Total (test code = 7.4 g/dL 6.0-8.5 2885-2) Albumin (test code = 1751-7) 4.8 g/dL 3.8-4.9 Globulin, Total (test code = 2.6 g/dL 1.5-4.5 95515-2) A/G Ratio (test code = 1759-0) 1.8 1.2-2.2 Bilirubin, Total (test code = 0.5 mg/dL 0.0-1.2 1975-2) Alkaline Phosphatase (test 89 IU/L 39-117 code = 6768-6) AST (SGOT) (test code = 24 IU/L 0-40 1920-8) ALT (SGPT) (test code = 28 IU/L 0-44 1742-6) [facility] Description: Hemoglobin A1c/Hemoglobin.total in Blood 2020-04-30 06:43:00 Test Item Value Reference Range Interpretation Comments Hemoglobin A1c (test code 6.4 % 4.8-5.6 H . Prediabetes: 5.7 - = 4548-4) 6.4 Diabetes: > 6.4 Glycemic contro l for adults with suzanne betes: <7.0

P erformed by:
[facility] ([place])

[facility] Description: Hemoglobin A1c/Hemoglobin.total in Blood 2020-04-30 06:43:00 Test Item Value Reference Range Interpretation Comments Hemoglobin A1c (test code 6.4 % 4.8-5.6 H . Prediabetes: 5.7 - = 4548-4) 6.4 Diabetes: > 6.4 Glycemic contro l for adults with suzanne betes: <7.0

P erformed by:
[facility] ([place])

[facility] Description: Hemoglobin A1c/Hemoglobin.total in Blood 2020-04-30 06:43:00 Test Item Value Reference Range Interpretation Comments Hemoglobin A1c (test code 6.4 % 4.8-5.6 H . Prediabetes: 5.7 - = 4548-4) 6.4 Diabetes: > 6.4 Glycemic contro l for adults with suzanne betes: <7.0

P erformed by:
[facility] ([place])

[facility] Description: Hemoglobin A1c/Hemoglobin.total in Blood 2020-04-30 06:43:00 Test Item Value Reference Range Interpretation Comments Hemoglobin A1c (test code 6.4 % 4.8-5.6 H . Prediabetes: 5.7 - = 4548-4) 6.4 Diabetes: > 6.4 Glycemic contro l for adults with suzanne betes: <7.0

P erformed by:
[facility] ([place])

[facility] Description: Hemoglobin A1c/Hemoglobin.total in Blood 2020-04-30 06:43:00 Test Item Value Reference Range Interpretation Comments Hemoglobin A1c (test code 6.4 % 4.8-5.6 H . Prediabetes: 5.7 - = 4548-4) 6.4 Diabetes: > 6.4 Glycemic contro l for adults with suzanne betes: <7.0

P erformed by:
[facility] ([place])

[facility] Description: Hemoglobin A1c/Hemoglobin.total in Blood 2020-04-30 06:43:00 Test Item Value Reference Range Interpretation Comments Hemoglobin A1c (test code 6.4 % 4.8-5.6 H . Prediabetes: 5.7 - = 4548-4) 6.4 Diabetes: > 6.4 Glycemic contro l for adults with suzanne betes: <7.0

P erformed by:
[facility] ([place])

[facility] Description: Hemoglobin A1c/Hemoglobin.total in Blood 2020-04-30 06:43:00 Test Item Value Reference Range Interpretation Comments Hemoglobin A1c (test code 6.4 % 4.8-5.6 H . Prediabetes: 5.7 - = 4548-4) 6.4 Diabetes: > 6.4 Glycemic contro l for adults with suzanne betes: <7.0

P erformed by:
[facility] ([place])

[facility] Description: Hemoglobin A1c/Hemoglobin.total in Blood 2020-04-30 06:43:00 Test Item Value Reference Range Interpretation Comments Hemoglobin A1c (test code 6.4 % 4.8-5.6 H . Prediabetes: 5.7 - = 4548-4) 6.4 Diabetes: > 6.4 Glycemic contro l for adults with suzanne betes: <7.0

P erformed by:
[facility] ()

[facility] Description: Hemoglobin A1c/Hemoglobin.total in Blood 2020-04-30 06:43:00 Test Item Value Reference Range Interpretation Comments Hemoglobin A1c (test code 6.4 % 4.8-5.6 H . Prediabetes: 5.7 - = 4548-4) 6.4 Diabetes: > 6.4 Glycemic contro l for adults with suzanne betes: <7.0Performed by:[facility] Georgette martinez () [facility] Description: Hemoglobin A1c/Hemoglobin.total in Blood 2020-04-30 06:43:00 Test Item Value Reference Range Interpretation Comments Hemoglobin A1c (test code 6.4 % 4.8-5.6 H . Prediabetes: 5.7 - = 4548-4) 6.4 Diabetes: > 6.4 Glycemic contro l for adults with suzanne betes: <7.0Performed by:[facility] Georgette martinez ([place]) [facility] Description: Hemoglobin A1c/Hemoglobin.total in Blood 2020-04-30 06:43:00 Test Item Value Reference Range Interpretation Comments Hemoglobin A1c (test code 6.4 % 4.8-5.6 H . Prediabetes: 5.7 - = 4548-4) 6.4 Diabetes: > 6.4 Glycemic contro l for adults with suzanne betes: <7.0Performed by:[facility] Georgette martinez ([place]) [facility] Description: Hemoglobin A1c/Hemoglobin.total in Blood 2020-04-30 06:43:00 Test Item Value Reference Range Interpretation Comments Hemoglobin A1c (test code 6.4 % 4.8-5.6 H . Prediabetes: 5.7 - = 4548-4) 6.4 Diabetes: > 6.4 Glycemic contro l for adults with suzanne betes: <7.0Performed by:[facility] Georgette martinez ([place]) [facility] Description: Hemoglobin A1c/Hemoglobin.total in Blood 2020-04-30 06:43:00 Test Item Value Reference Range Interpretation Comments Hemoglobin A1c (test code 6.4 % 4.8-5.6 H . Prediabetes: 5.7 - = 4548-4) 6.4 Diabetes: > 6.4 Glycemic contro l for adults with suzanne betes: <7.0

P erformed by:
[facility] ([place])

[facility] Description: Hemoglobin A1c/Hemoglobin.total in Blood 2020-04-30 06:43:00 Test Item Value Reference Range Interpretation Comments Hemoglobin A1c (test code 6.4 % 4.8-5.6 H . Prediabetes: 5.7 - = 4548-4) 6.4 Diabetes: > 6.4 Glycemic contro l for adults with suzanne betes: <7.0Performed by:[facility] Gerogette martinez ([place]) [facility] Description: Hemoglobin A1c/Hemoglobin.total in Blood 2020-04-30 06:43:00 Test Item Value Reference Range Interpretation Comments Hemoglobin A1c (test code 6.4 % 4.8-5.6 H . Prediabetes: 5.7 - = 4548-4) 6.4 Diabetes: > 6.4 Glycemic contro l for adults with suzanne betes: <7.0Performed by:[facility] Georgette martinez ([place]) [facility] Description: Hemoglobin A1c/Hemoglobin.total in Blood 2020-04-30 06:43:00 Test Item Value Reference Range Interpretation Comments Hemoglobin A1c (test code 6.4 % 4.8-5.6 H . Prediabetes: 5.7 - = 4548-4) 6.4 Diabetes: > 6.4 Glycemic contro l for adults with suzanne betes: <7.0Performed by:[facility] Georgette martinez ([place]) [facility] Description: Hemoglobin A1c/Hemoglobin.total in Blood 2020-04-30 06:43:00 Test Item Value Reference Range Interpretation Comments Hemoglobin A1c (test code 6.4 % 4.8-5.6 H . Prediabetes: 5.7 - = 4548-4) 6.4 Diabetes: > 6.4 Glycemic contro l for adults with suzanne betes: <7.0Performed by:[facility] Georgette martinez ([place]) [facility] Description: Hemoglobin A1c/Hemoglobin.total in Blood 2020-04-30 06:43:00 Test Item Value Reference Range Interpretation Comments Hemoglobin A1c (test code 6.4 % 4.8-5.6 H . Prediabetes: 5.7 - = 4548-4) 6.4 Diabetes: > 6.4 Glycemic contro l for adults with suzanne betes: <7.0Performed by:[facility] Georgette martinez ([place]) [facility] Description: Hemoglobin A1c/Hemoglobin.total in Blood 2020-04-30 06:43:00 Test Item Value Reference Range Interpretation Comments Hemoglobin A1c (test code 6.4 % 4.8-5.6 H . Prediabetes: 5.7 - = 4548-4) 6.4 Diabetes: > 6.4 Glycemic contro l for adults with suzanne betes: <7.0

P erformed by:
[facility] ([place])

[facility] Description: Hemoglobin A1c/Hemoglobin.total in Blood 2020-04-30 06:43:00 Test Item Value Reference Range Interpretation Comments Hemoglobin A1c (test code 6.4 % 4.8-5.6 H . Prediabetes: 5.7 - = 4548-4) 6.4 Diabetes: > 6.4 Glycemic contro l for adults with suzanne betes: <7.0

P erformed by:
[facility] ()

[facility] Description: Hemoglobin A1c/Hemoglobin.total in Blood 2020-04-30 06:43:00 Test Item Value Reference Range Interpretation Comments Hemoglobin A1c (test code 6.4 % 4.8-5.6 H . Prediabetes: 5.7 - = 4548-4) 6.4 Diabetes: > 6.4 Glycemic contro l for adults with suzanne betes: <7.0

P erformed by:
[facility] ()

[facility] Description: Hemoglobin A1c/Hemoglobin.total in Blood 2020-04-30 06:43:00 Test Item Value Reference Range Interpretation Comments Hemoglobin A1c (test code 6.4 % 4.8-5.6 H . Prediabetes: 5.7 - = 4548-4) 6.4 Diabetes: > 6.4 Glycemic contro l for adults with suzanne betes: <7.0

P erformed by:
[facility] ()

[facility] Description: Lipid [id number] 02:41:00 Test Item Value Reference Range Interpretation Comments Cholesterol, Total (test code = 125 mg/dL 774-554 3075-3) Triglycerides (test code = 2571-8) 180 mg/dL 0-149 H HDL Cholesterol (test code = 33 mg/dL >39 L 2084-9) VLDL Cholesterol Jose Roberto (test code = 30 mg/dL 5-40 56437-8) LDL Chol Calc ([facility]) (test code = 62 mg/dL 0-99 90978-1) Comment: (test code = 95903-4) [facility] Description: Lipid [id number] 02:41:00 Test Item Value Reference Range Interpretation Comments Cholesterol, Total (test code = 125 mg/dL 108-517 6245-3) Triglycerides (test code = 2571-8) 180 mg/dL 0-149 H HDL Cholesterol (test code = 33 mg/dL >39 L 2085-9) VLDL Cholesterol Jose Roberto (test code = 30 mg/dL 5-40 21087-1) LDL Chol Calc ([facility]) (test code = 62 mg/dL 0-99 16124-8) Comment: (test code = 87248-3) [facility] Description: Lipid [id number] 02:41:00 Test Item Value Reference Range Interpretation Comments Cholesterol, Total (test code = 125 mg/dL 843-761 7721-3) Triglycerides (test code = 2571-8) 180 mg/dL 0-149 H HDL Cholesterol (test code = 33 mg/dL >39 L 2085-9) VLDL Cholesterol Jose Roberto (test code = 30 mg/dL 5-40 44124-3) LDL Chol Calc ([facility]) (test code = 62 mg/dL 0-99 00661-4) Comment: (test code = 74252-7) [facility] Description: Lipid [id number] 02:41:00 Test Item Value Reference Range Interpretation Comments Cholesterol, Total (test code = 125 mg/dL 227-294 7666-3) Triglycerides (test code = 2571-8) 180 mg/dL 0-149 H HDL Cholesterol (test code = 33 mg/dL >39 L 5-9) VLDL Cholesterol Jose Roberto (test code = 30 mg/dL 5-40 86168-3) LDL Chol Calc ([facility]) (test code = 62 mg/dL 0-99 37386-9) Comment: (test code = 17476-0) [facility] Description: Lipid [id number] 02:41:00 Test Item Value Reference Range Interpretation Comments Cholesterol, Total (test code = 125 mg/dL 620-629 3767-3) Triglycerides (test code = 2571-8) 180 mg/dL 0-149 H HDL Cholesterol (test code = 33 mg/dL >39 L 2085-9) VLDL Cholesterol Jose Roberto (test code = 30 mg/dL 5-40 89317-3) LDL Chol Calc ([facility]) (test code = 62 mg/dL 0-99 70065-4) Comment: (test code = 44673-7) [facility] Description: Lipid [id number] 02:41:00 Test Item Value Reference Range Interpretation Comments Cholesterol, Total (test code = 125 mg/dL 765-842 8902-3) Triglycerides (test code = 2571-8) 180 mg/dL 0-149 H HDL Cholesterol (test code = 33 mg/dL >39 L 2085-9) VLDL Cholesterol Jose Roberto (test code = 30 mg/dL 5-40 92833-9) LDL Chol Calc ([facility]) (test code = 62 mg/dL 0-99 13164-6) Comment: (test code = 92380-0) [facility] Description: Lipid [id number] 02:41:00 Test Item Value Reference Range Interpretation Comments Cholesterol, Total (test code = 125 mg/dL 093-705 5974-3) Triglycerides (test code = 2571-8) 180 mg/dL 0-149 H HDL Cholesterol (test code = 33 mg/dL >39 L 2085-9) VLDL Cholesterol Jose Roberto (test code = 30 mg/dL 5-40 61071-6) LDL Chol Calc (NI[facility]) (test code = 62 mg/dL 0-99 78897-0) Comment: (test code = 75973-4) [facility] Description: Lipid [id number] 02:41:00 Test Item Value Reference Range Interpretation Comments Cholesterol, Total (test code = 125 mg/dL 565-356 5628-3) Triglycerides (test code = 2571-8) 180 mg/dL 0-149 H HDL Cholesterol (test code = 33 mg/dL >39 L 2085-9) VLDL Cholesterol Jose Roberto (test code = 30 mg/dL 5-40 31108-0) LDL Chol Calc (NI[facility]) (test code = 62 mg/dL 0-99 20556-1) Comment: (test code = 73522-8) [facility] Description: Lipid [id number] 02:41:00 Test Item Value Reference Range Interpretation Comments Cholesterol, Total (test code = 125 mg/dL 008-626 6017-3) Triglycerides (test code = 2571-8) 180 mg/dL 0-149 H HDL Cholesterol (test code = 33 mg/dL >39 L 2085-9) VLDL Cholesterol Jose Roberto (test code = 30 mg/dL 5-40 61599-3) LDL Chol Calc (NI[facility]) (test code = 62 mg/dL 0-99 40056-0) Comment: (test code = 03669-4) [facility] Description: Lipid [id number] 02:41:00 Test Item Value Reference Range Interpretation Comments Cholesterol, Total (test code = 125 mg/dL 461-054 6809-3) Triglycerides (test code = 2571-8) 180 mg/dL 0-149 H HDL Cholesterol (test code = 33 mg/dL >39 L 2085-9) VLDL Cholesterol Jose Roberto (test code = 30 mg/dL 5-40 77846-8) LDL Chol Calc (NIH) (test code = 62 mg/dL 0-99 56135-8) Comment: (test code = 43379-7) [facility] Description: Lipid [id number] 02:41:00 Test Item Value Reference Range Interpretation Comments Cholesterol, Total (test code = 125 mg/dL 812-492 0150-3) Triglycerides (test code = 2571-8) 180 mg/dL 0-149 H HDL Cholesterol (test code = 33 mg/dL >39 L 2085-9) VLDL Cholesterol Jose Roberto (test code = 30 mg/dL 5-40 29157-2) LDL Chol Calc (NIH) (test code = 62 mg/dL 0-99 67312-8) Comment: (test code = 25793-2) [facility] Description: Lipid [id number] 02:41:00 Test Item Value Reference Range Interpretation Comments Cholesterol, Total (test code = 125 mg/dL 600-286 1091-3) Triglycerides (test code = 2571-8) 180 mg/dL 0-149 H HDL Cholesterol (test code = 33 mg/dL >39 L 2085-9) VLDL Cholesterol Jose Roberto (test code = 30 mg/dL 5-40 07654-8) LDL Chol Calc (NI[facility]) (test code = 62 mg/dL 0-99 52812-6) Comment: (test code = 52209-6) [facility] Description: Lipid [id number] 02:41:00 Test Item Value Reference Range Interpretation Comments Cholesterol, Total (test code = 125 mg/dL 188-787 0959-3) Triglycerides (test code = 2571-8) 180 mg/dL 0-149 H HDL Cholesterol (test code = 33 mg/dL >39 L 2085-9) VLDL Cholesterol Jose Roberto (test code = 30 mg/dL 5-40 16252-4) LDL Chol Calc (NIH) (test code = 62 mg/dL 0-99 63145-0) Comment: (test code = 45313-8) [facility] Description: Lipid [id number] 02:41:00 Test Item Value Reference Range Interpretation Comments Cholesterol, Total (test code = 125 mg/dL 074-048 9069-3) Triglycerides (test code = 2571-8) 180 mg/dL 0-149 H HDL Cholesterol (test code = 33 mg/dL >39 L 5-9) VLDL Cholesterol Jose Roberto (test code = 30 mg/dL 5-40 42427-7) LDL Chol Calc (NIH) (test code = 62 mg/dL 0-99 53644-9) Comment: (test code = 64184-8) [facility] Description: Lipid [id number] 02:41:00 Test Item Value Reference Range Interpretation Comments Cholesterol, Total (test code = 125 mg/dL 588-329 8861-3) Triglycerides (test code = 2571-8) 180 mg/dL 0-149 H HDL Cholesterol (test code = 33 mg/dL >39 L 5-9) VLDL Cholesterol Jose Roberto (test code = 30 mg/dL 5-40 61655-5) LDL Chol Calc (NIH) (test code = 62 mg/dL 0-99 03864-0) Comment: (test code = 93619-1) [facility] Description: Lipid [id number] 02:41:00 Test Item Value Reference Range Interpretation Comments Cholesterol, Total (test code = 125 mg/dL 832-343 0689-3) Triglycerides (test code = 2571-8) 180 mg/dL 0-149 H HDL Cholesterol (test code = 33 mg/dL >39 L 5-9) VLDL Cholesterol Jose Roberto (test code = 30 mg/dL 5-40 93462-6) LDL Chol Calc (NIH) (test code = 62 mg/dL 0-99 11037-4) Comment: (test code = 92341-3) [facility] Description: Lipid [id number] 02:41:00 Test Item Value Reference Range Interpretation Comments Cholesterol, Total (test code = 125 mg/dL 354-815 3992-3) Triglycerides (test code = 2571-8) 180 mg/dL 0-149 H HDL Cholesterol (test code = 33 mg/dL >39 L 2085-9) VLDL Cholesterol Jose Roberto (test code = 30 mg/dL 5-40 62296-4) LDL Chol Calc (NIH) (test code = 62 mg/dL 0-99 55662-8) Comment: (test code = 80177-0) [facility] Description: Lipid [id number] 02:41:00 Test Item Value Reference Range Interpretation Comments Cholesterol, Total (test code = 125 mg/dL 081-042 0009-3) Triglycerides (test code = 2571-8) 180 mg/dL 0-149 H HDL Cholesterol (test code = 33 mg/dL >39 L 2085-9) VLDL Cholesterol Jose Roberto (test code = 30 mg/dL 5-40 68752-6) LDL Chol Calc (NIH) (test code = 62 mg/dL 0-99 49226-4) Comment: (test code = 56742-0) [facility] Description: Lipid [id number] 02:41:00 Test Item Value Reference Range Interpretation Comments Cholesterol, Total (test code = 125 mg/dL 279-633 7702-3) Triglycerides (test code = 2571-8) 180 mg/dL 0-149 H HDL Cholesterol (test code = 33 mg/dL >39 L 5-9) VLDL Cholesterol Jose Roberto (test code = 30 mg/dL 5-40 80641-2) LDL Chol Calc (NIH) (test code = 62 mg/dL 0-99 45505-4) Comment: (test code = 82925-2) [facility] Description: Lipid [id number] 02:41:00 Test Item Value Reference Range Interpretation Comments Cholesterol, Total (test code = 125 mg/dL 895-783 1851-3) Triglycerides (test code = 2571-8) 180 mg/dL 0-149 H HDL Cholesterol (test code = 33 mg/dL >39 L 2085-9) VLDL Cholesterol Jose Roberto (test code = 30 mg/dL 5-40 83959-8) LDL Chol Calc (NIH) (test code = 62 mg/dL 0-99 26641-8) Comment: (test code = 09870-6) [facility] Description: Lipid [id number] 02:41:00 Test Item Value Reference Range Interpretation Comments Cholesterol, Total (test code = 125 mg/dL 051-452 3165-3) Triglycerides (test code = 2571-8) 180 mg/dL 0-149 H HDL Cholesterol (test code = 33 mg/dL >39 L 5-9) VLDL Cholesterol Jose Roberto (test code = 30 mg/dL 5-40 00321-7) LDL Chol Calc (NIH) (test code = 62 mg/dL 0-99 88404-0) Comment: (test code = 93650-0) [facility] Description: Lipid [id number] 02:41:00 Test Item Value Reference Range Interpretation Comments Cholesterol, Total (test code = 125 mg/dL 198-829 7281-3) Triglycerides (test code = 2571-8) 180 mg/dL 0-149 H HDL Cholesterol (test code = 33 mg/dL >39 L 2084-9) VLDL Cholesterol Jose Roberto (test code = 30 mg/dL 5-40 13589-3) LDL Chol Calc (NIH) (test code = 62 mg/dL 0-99 58141-3) Comment: (test code = 47086-3) [facility] Description: Comp. Metabolic Panel (14)2020-04-30 02:29:00 Test Item Value Reference Range Interpretation Comments Glucose (test code = 2345-7) 117 mg/dL 65-99 H BUN (test code = 3094-0) 11 mg/dL 6-24 Creatinine (test code = 1.07 mg/dL 0.76-1.27 2160-0) eGFR If NonAfricn Am (test 80 mL/min/1.73 >59 code = 59550-4) eGFR If Africn Am (test code = 92 mL/min/1.73 >59 60987-9) BUN/Creatinine Ratio (test 05-01 code = 3097-3) Sodium (test code = 2951-2) 142 mmol/L 134-144 Potassium (test code = 2823-3) 4.1 mmol/L 3.5-5.2 Chloride (test code = 2075-0) 102 mmol/L 96-106 Carbon Dioxide, Total (test 26 mmol/L - code = 2027-9) Calcium (test code = 20580-1) 9.6 mg/dL 8.7-10.2 Protein, Total (test code = 6.7 g/dL 6.0-8.5 2885-2) Albumin (test code = 1751-7) 4.5 g/dL 3.8-4.9 Globulin, Total (test code = 2.2 g/dL 1.5-4.5 97353-3) A/G Ratio (test code = 1759-0) 2.0 1.2-2.2 Bilirubin, Total (test code = 0.4 mg/dL 0.0-1.2 1975-2) Alkaline Phosphatase (test 78 IU/L 39-117 code = 6768-6) AST (SGOT) (test code = 24 IU/L 0-40 1920-8) ALT (SGPT) (test code = 26 IU/L 0-44 1742-6) [facility] Description: Comp. Metabolic Panel (14)2020-04-30 02:29:00 Test Item Value Reference Range Interpretation Comments Glucose (test code = 2345-7) 117 mg/dL 65-99 H BUN (test code = 3094-0) 11 mg/dL 6-24 Creatinine (test code = 1.07 mg/dL 0.76-1.27 2160-0) eGFR If NonAfricn Am (test 80 mL/min/1.73 >59 code = 84384-4) eGFR If Africn Am (test code = 92 mL/min/1.73 >59 28494-6) BUN/Creatinine Ratio (test 10 05-01 code = 3097-3) Sodium (test code = 2951-2) 142 mmol/L 134-144 Potassium (test code = 2823-3) 4.1 mmol/L 3.5-5.2 Chloride (test code = 2075-0) 102 mmol/L 96-106 Carbon Dioxide, Total (test 26 mmol/L -29 code = 2027-9) Calcium (test code = 99998-3) 9.6 mg/dL 8.7-10.2 Protein, Total (test code = 6.7 g/dL 6.0-8.5 2885-2) Albumin (test code = 1751-7) 4.5 g/dL 3.8-4.9 Globulin, Total (test code = 2.2 g/dL 1.5-4.5 80184-8) A/G Ratio (test code = 1759-0) 2.0 1.2-2.2 Bilirubin, Total (test code = 0.4 mg/dL 0.0-1.2 1975-2) Alkaline Phosphatase (test 78 IU/L 39-117 code = 6768-6) AST (SGOT) (test code = 24 IU/L 0-40 1920-8) ALT (SGPT) (test code = 26 IU/L 0-44 1742-6) [facility] Description: Comp. Metabolic Panel (2020-04-30 02:29:00 Test Item Value Reference Range Interpretation Comments Glucose (test code = 2345-7) 117 mg/dL 65-99 H BUN (test code = 3094-0) 11 mg/dL 6-24 Creatinine (test code = 1.07 mg/dL 0.76-1.27 2160-0) eGFR If NonAfricn Am (test 80 mL/min/1.73 >59 code = 67056-4) eGFR If Africn Am (test code = 92 mL/min/1.73 >59 34869-5) BUN/Creatinine Ratio (test 10 - code = 3097-3) Sodium (test code = 2951-2) 142 mmol/L 134-144 Potassium (test code = 2823-3) 4.1 mmol/L 3.5-5.2 Chloride (test code = 2075-0) 102 mmol/L 96-106 Carbon Dioxide, Total (test 26 mmol/L 20-29 code = 2028-9) Calcium (test code = 84261-5) 9.6 mg/dL 8.7-10.2 Protein, Total (test code = 6.7 g/dL 6.0-8.5 2885-2) Albumin (test code = 1751-7) 4.5 g/dL 3.8-4.9 Globulin, Total (test code = 2.2 g/dL 1.5-4.5 56695-9) A/G Ratio (test code = 1759-0) 2.0 1.2-2.2 Bilirubin, Total (test code = 0.4 mg/dL 0.0-1.2 1974-) Alkaline Phosphatase (test 78 IU/L 39-117 code = 6768-6) AST (SGOT) (test code = 24 IU/L 0-40 1920-8) ALT (SGPT) (test code = 26 IU/L 0-44 1742-6) [facility]: Comp. Met[facility] (2020-04-30 02:29:00 Test Item Value Reference Range Interpretation Comments Glucose (test code = 2345-7) 117 mg/dL 65-99 H BUN (test code = 3094-0) 11 mg/dL 6-24 Creatinine (test code = 1.07 mg/dL 0.76-1.27 2160-0) eGFR If NonAfricn Am (test 80 mL/min/1.73 >59 code = 95312-7) eGFR If Africn Am (test code = 92 mL/min/1.73 >59 78599-0) BUN/Creatinine Ratio (test 10 9-20 code = 3097-3) Sodium (test code = 2951-2) 142 mmol/L 134-144 Potassium (test code = 2823-3) 4.1 mmol/L 3.5-5.2 Chloride (test code = 2075-0) 102 mmol/L 96-106 Carbon Dioxide, Total (test 26 mmol/L 20-29 code = 2028-9) Calcium (test code = 28850-1) 9.6 mg/dL 8.7-10.2 Protein, Total (test code = 6.7 g/dL 6.0-8.5 2885-2) Albumin (test code = 1751-7) 4.5 g/dL 3.8-4.9 Globulin, Total (test code = 2.2 g/dL 1.5-4.5 81926-2) A/G Ratio (test code = 1759-0) 2.0 1.2-2.2 Bilirubin, Total (test code = 0.4 mg/dL 0.0-1.2 1974-) Alkaline Phosphatase (test 78 IU/L 39-117 code = 6768-6) AST (SGOT) (test code = 24 IU/L 0-40 1920-8) ALT (SGPT) (test code = 26 IU/L 0-44 1742-6) [facility]: [facility] (14)2020-04-30 02:29:00 Test Item Value Reference Range Interpretation Comments Glucose (test code = 2345-7) 117 mg/dL 65-99 H BUN (test code = 3094-0) 11 mg/dL 6-24 Creatinine (test code = 1.07 mg/dL 0.76-1.27 2160-0) eGFR If NonAfricn Am (test 80 mL/min/1.73 >59 code = 20497-6) eGFR If Africn Am (test code = 92 mL/min/1.73 >59 64206-6) BUN/Creatinine Ratio (test 10 - code = 3097-3) Sodium (test code = 2951-2) 142 mmol/L 134-144 Potassium (test code = 2823-3) 4.1 mmol/L 3.5-5.2 Chloride (test code = 2075-0) 102 mmol/L 96-106 Carbon Dioxide, Total (test 26 mmol/L 20-29 code = 2028-9) Calcium (test code = 02801-4) 9.6 mg/dL 8.7-10.2 Protein, Total (test code = 6.7 g/dL 6.0-8.5 2885-2) Albumin (test code = 1751-7) 4.5 g/dL 3.8-4.9 Globulin, Total (test code = 2.2 g/dL 1.5-4.5 05429-8) A/G Ratio (test code = 1759-0) 2.0 1.2-2.2 Bilirubin, Total (test code = 0.4 mg/dL 0.0-1.2 1975-2) Alkaline Phosphatase (test 78 IU/L 39-117 code = 6768-6) AST (SGOT) (test code = 24 IU/L 0-40 1920-8) ALT (SGPT) (test code = 26 IU/L 0-44 1742-6) [facility] Description: Comp. Metabolic Panel (14)2020-04-30 02:29:00 Test Item Value Reference Range Interpretation Comments Glucose (test code = 2345-7) 117 mg/dL 65-99 H BUN (test code = 3094-0) 11 mg/dL 6-24 Creatinine (test code = 1.07 mg/dL 0.76-1.27 2160-0) eGFR If NonAfricn Am (test 80 mL/min/1.73 >59 code = 75130-9) eGFR If Africn Am (test code = 92 mL/min/1.73 >59 21136-5) BUN/Creatinine Ratio (test 10 - code = 3097-3) Sodium (test code = 2951-2) 142 mmol/L 134-144 Potassium (test code = 2823-3) 4.1 mmol/L 3.5-5.2 Chloride (test code = 2075-0) 102 mmol/L 96-106 Carbon Dioxide, Total (test 26 mmol/L 20-29 code = 2028-9) Calcium (test code = 56230-4) 9.6 mg/dL 8.7-10.2 Protein, Total (test code = 6.7 g/dL 6.0-8.5 2885-2) Albumin (test code = 1751-7) 4.5 g/dL 3.8-4.9 Globulin, Total (test code = 2.2 g/dL 1.5-4.5 07889-2) A/G Ratio (test code = 1759-0) 2.0 1.2-2.2 Bilirubin, Total (test code = 0.4 mg/dL 0.0-1.2 1975-2) Alkaline Phosphatase (test 78 IU/L 39-117 code = 6768-6) AST (SGOT) (test code = 24 IU/L 0-40 1920-8) ALT (SGPT) (test code = 26 IU/L 0-44 1742-6) [facility] Description: Comp. Metabolic Panel (2020-04-30 02:29:00 Test Item Value Reference Range Interpretation Comments Glucose (test code = 2345-7) 117 mg/dL 65-99 H BUN (test code = 3094-0) 11 mg/dL 6-24 Creatinine (test code = 1.07 mg/dL 0.76-1.27 2160-0) eGFR If NonAfricn Am (test 80 mL/min/1.73 >59 code = 86041-0) eGFR If Africn Am (test code = 92 mL/min/1.73 >59 21619-6) BUN/Creatinine Ratio (test 05-01 code = 3097-3) Sodium (test code = 2951-2) 142 mmol/L 134-144 Potassium (test code = 2823-3) 4.1 mmol/L 3.5-5.2 Chloride (test code = 2075-0) 102 mmol/L 96-106 Carbon Dioxide, Total (test 26 mmol/L 20-29 code = 2028-9) Calcium (test code = 74988-1) 9.6 mg/dL 8.7-10.2 Protein, Total (test code = 6.7 g/dL 6.0-8.5 2885-2) Albumin (test code = 1751-7) 4.5 g/dL 3.8-4.9 Globulin, Total (test code = 2.2 g/dL 1.5-4.5 20782-6) A/G Ratio (test code = 1759-0) 2.0 1.2-2.2 Bilirubin, Total (test code = 0.4 mg/dL 0.0-1.2 1975-2) Alkaline Phosphatase (test 78 IU/L 39-117 code = 6768-6) AST (SGOT) (test code = 24 IU/L 0-40 1920-8) ALT (SGPT) (test code = 26 IU/L 0-44 1742-6) [facility] Description: Comp. Metabolic Panel (142020-04-30 02:29:00 Test Item Value Reference Range Interpretation Comments Glucose (test code = 2345-7) 117 mg/dL 65-99 H BUN (test code = 3094-0) 11 mg/dL 6-24 Creatinine (test code = 1.07 mg/dL 0.76-1.27 2160-0) eGFR If NonAfricn Am (test 80 mL/min/1.73 >59 code = 35511-9) eGFR If Africn Am (test code = 92 mL/min/1.73 >59 66132-0) BUN/Creatinine Ratio (test 05-01 code = 3097-3) Sodium (test code = 2951-2) 142 mmol/L 134-144 Potassium (test code = 2823-3) 4.1 mmol/L 3.5-5.2 Chloride (test code = 2075-0) 102 mmol/L 96-106 Carbon Dioxide, Total (test 26 mmol/L -29 code = 2027-9) Calcium (test code = 21323-2) 9.6 mg/dL 8.7-10.2 Protein, Total (test code = 6.7 g/dL 6.0-8.5 2885-2) Albumin (test code = 1751-7) 4.5 g/dL 3.8-4.9 Globulin, Total (test code = 2.2 g/dL 1.5-4.5 23087-3) A/G Ratio (test code = 1759-0) 2.0 1.2-2.2 Bilirubin, Total (test code = 0.4 mg/dL 0.0-1.2 1975-2) Alkaline Phosphatase (test 78 IU/L 39-117 code = 6768-6) AST (SGOT) (test code = 24 IU/L 0-40 1920-8) ALT (SGPT) (test code = 26 IU/L 0-44 1742-6) [facility] Description: Comp. Metabolic Panel (14)2020-04-30 02:29:00 Test Item Value Reference Range Interpretation Comments Glucose (test code = 2345-7) 117 mg/dL 65-99 H BUN (test code = 3094-0) 11 mg/dL 6-24 Creatinine (test code = 1.07 mg/dL 0.76-1.27 2160-0) eGFR If NonAfricn Am (test 80 mL/min/1.73 >59 code = 53911-4) eGFR If Africn Am (test code = 92 mL/min/1.73 >59 04419-0) BUN/Creatinine Ratio (test 10 05-01 code = 3097-3) Sodium (test code = 2951-2) 142 mmol/L 134-144 Potassium (test code = 2823-3) 4.1 mmol/L 3.5-5.2 Chloride (test code = 2075-0) 102 mmol/L 96-106 Carbon Dioxide, Total (test 26 mmol/L code = 2027-) Calcium (test code = 07188-7) 9.6 mg/dL 8.7-10.2 Protein, Total (test code = 6.7 g/dL 6.0-8.5 2885-2) Albumin (test code = 1751-7) 4.5 g/dL 3.8-4.9 Globulin, Total (test code = 2.2 g/dL 1.5-4.5 58569-8) A/G Ratio (test code = 1759-0) 2.0 1.2-2.2 Bilirubin, Total (test code = 0.4 mg/dL 0.0-1.2 1975-2) Alkaline Phosphatase (test 78 IU/L 39-117 code = 6768-6) AST (SGOT) (test code = 24 IU/L 0-40 1920-8) ALT (SGPT) (test code = 26 IU/L 0-44 1742-6) [facility] Description: Comp. Metabolic Panel (2020-04-30 02:29:00 Test Item Value Reference Range Interpretation Comments Glucose (test code = 2345-7) 117 mg/dL 65-99 H BUN (test code = 3094-0) 11 mg/dL 6-24 Creatinine (test code = 1.07 mg/dL 0.76-1.27 2160-0) eGFR If NonAfricn Am (test 80 mL/min/1.73 >59 code = 94034-4) eGFR If Africn Am (test code = 92 mL/min/1.73 >59 15835-3) BUN/Creatinine Ratio (test 05-01 code = 3097-3) Sodium (test code = 2951-2) 142 mmol/L 134-144 Potassium (test code = 2823-3) 4.1 mmol/L 3.5-5.2 Chloride (test code = 2075-0) 102 mmol/L 96-106 Carbon Dioxide, Total (test 26 mmol/L code = 2027-9) Calcium (test code = 69975-8) 9.6 mg/dL 8.7-10.2 Protein, Total (test code = 6.7 g/dL 6.0-8.5 2885-2) Albumin (test code = 1751-7) 4.5 g/dL 3.8-4.9 Globulin, Total (test code = 2.2 g/dL 1.5-4.5 30099-0) A/G Ratio (test code = 1759-0) 2.0 1.2-2.2 Bilirubin, Total (test code = 0.4 mg/dL 0.0-1.2 1975-2) Alkaline Phosphatase (test 78 IU/L 39-117 code = 6768-6) AST (SGOT) (test code = 24 IU/L 0-40 1920-8) ALT (SGPT) (test code = 26 IU/L 0-44 1742-6) [facility] Description: Comp. Metabolic Panel (2020-04-30 02:29:00 Test Item Value Reference Range Interpretation Comments Glucose (test code = 2345-7) 117 mg/dL 65-99 H BUN (test code = 3094-0) 11 mg/dL 6-24 Creatinine (test code = 1.07 mg/dL 0.76-1.27 2160-0) eGFR If NonAfricn Am (test 80 mL/min/1.73 >59 code = 78227-2) eGFR If Africn Am (test code = 92 mL/min/1.73 >59 41047-6) BUN/Creatinine Ratio (test 10 - code = 3097-3) Sodium (test code = 2951-2) 142 mmol/L 134-144 Potassium (test code = 2823-3) 4.1 mmol/L 3.5-5.2 Chloride (test code = 2075-0) 102 mmol/L 96-106 Carbon Dioxide, Total (test 26 mmol/L 20-29 code = 8-9) Calcium (test code = 15411-0) 9.6 mg/dL 8.7-10.2 Protein, Total (test code = 6.7 g/dL 6.0-8.5 2885-2) Albumin (test code = 1751-7) 4.5 g/dL 3.8-4.9 Globulin, Total (test code = 2.2 g/dL 1.5-4.5 29395-9) A/G Ratio (test code = 1759-0) 2.0 1.2-2.2 Bilirubin, Total (test code = 0.4 mg/dL 0.0-1.2 1974-09) Alkaline Phosphatase (test 78 IU/L 39-117 code = 6768-6) AST (SGOT) (test code = 24 IU/L 0-40 1920-8) ALT (SGPT) (test code = 26 IU/L 0-44 1742-6) [facility] Description: Comp. Metabolic Panel (2020-04-30 02:29:00 Test Item Value Reference Range Interpretation Comments Glucose (test code = 2345-7) 117 mg/dL 65-99 H BUN (test code = 3094-0) 11 mg/dL 6-24 Creatinine (test code = 1.07 mg/dL 0.76-1.27 2160-0) eGFR If NonAfricn Am (test 80 mL/min/1.73 >59 code = 41955-9) eGFR If Africn Am (test code = 92 mL/min/1.73 >59 86463-5) BUN/Creatinine Ratio (test 10 - code = 3097-3) Sodium (test code = 2951-2) 142 mmol/L 134-144 Potassium (test code = 2823-3) 4.1 mmol/L 3.5-5.2 Chloride (test code = 2075-0) 102 mmol/L 96-106 Carbon Dioxide, Total (test 26 mmol/L 20-29 code = 2028-9) Calcium (test code = 54463-6) 9.6 mg/dL 8.7-10.2 Protein, Total (test code = 6.7 g/dL 6.0-8.5 2885-2) Albumin (test code = 1751-7) 4.5 g/dL 3.8-4.9 Globulin, Total (test code = 2.2 g/dL 1.5-4.5 97184-3) A/G Ratio (test code = 1759-0) 2.0 1.2-2.2 Bilirubin, Total (test code = 0.4 mg/dL 0.0-1.2 1974-09) Alkaline Phosphatase (test 78 IU/L 39-117 code = 6768-6) AST (SGOT) (test code = 24 IU/L 0-40 0-8) ALT (SGPT) (test code = 26 IU/L 0-44 1742-6) [facility] (14)2020-04-30 02:29:00 Test Item Value Reference Range Interpretation Comments Glucose (test code = 2345-7) 117 mg/dL 65-99 H BUN (test code = 3094-0) 11 mg/dL 6-24 Creatinine (test code = 1.07 mg/dL 0.76-1.27 2160-0) eGFR If NonAfricn Am (test 80 mL/min/1.73 >59 code = 97591-7) eGFR If Africn Am (test code = 92 mL/min/1.73 >59 20022-5) BUN/Creatinine Ratio (test 10 05-01 code = 3097-3) Sodium (test code = 2951-2) 142 mmol/L 134-144 Potassium (test code = 2823-3) 4.1 mmol/L 3.5-5.2 Chloride (test code = 2075-0) 102 mmol/L 96-106 Carbon Dioxide, Total (test 26 mmol/L -29 code = 2027-9) Calcium (test code = 67062-8) 9.6 mg/dL 8.7-10.2 Protein, Total (test code = 6.7 g/dL 6.0-8.5 2885-2) Albumin (test code = 1751-7) 4.5 g/dL 3.8-4.9 Globulin, Total (test code = 2.2 g/dL 1.5-4.5 03570-8) A/G Ratio (test code = 1759-0) 2.0 1.2-2.2 Bilirubin, Total (test code = 0.4 mg/dL 0.0-1.2 1975-2) Alkaline Phosphatase (test 78 IU/L 39-117 code = 6768-6) AST (SGOT) (test code = 24 IU/L 0-40 0-8) ALT (SGPT) (test code = 26 IU/L 0-44 1742-6) [facility] Description: Comp. Metabolic Panel (14)2020-04-30 02:29:00 Test Item Value Reference Range Interpretation Comments Glucose (test code = 2345-7) 117 mg/dL 65-99 H BUN (test code = 3094-0) 11 mg/dL 6-24 Creatinine (test code = 1.07 mg/dL 0.76-1.27 2160-0) eGFR If NonAfricn Am (test 80 mL/min/1.73 >59 code = 39023-3) eGFR If Africn Am (test code = 92 mL/min/1.73 >59 45969-6) BUN/Creatinine Ratio (test 10 - code = 3097-3) Sodium (test code = 2951-2) 142 mmol/L 134-144 Potassium (test code = 2823-3) 4.1 mmol/L 3.5-5.2 Chloride (test code = 2075-0) 102 mmol/L 96-106 Carbon Dioxide, Total (test 26 mmol/L 20-29 code = 8-9) Calcium (test code = 05577-8) 9.6 mg/dL 8.7-10.2 Protein, Total (test code = 6.7 g/dL 6.0-8.5 2885-2) Albumin (test code = 1751-7) 4.5 g/dL 3.8-4.9 Globulin, Total (test code = 2.2 g/dL 1.5-4.5 94365-5) A/G Ratio (test code = 1759-0) 2.0 1.2-2.2 Bilirubin, Total (test code = 0.4 mg/dL 0.0-1.2 1975-2) Alkaline Phosphatase (test 78 IU/L 39-117 code = 6768-6) AST (SGOT) (test code = 24 IU/L 0-40 1920-8) ALT (SGPT) (test code = 26 IU/L 0-44 1742-6) [facility] Description: Comp. Metabolic Panel (2020-04-30 02:29:00 Test Item Value Reference Range Interpretation Comments Glucose (test code = 2345-7) 117 mg/dL 65-99 H BUN (test code = 3094-0) 11 mg/dL 6-24 Creatinine (test code = 1.07 mg/dL 0.76-1.27 2160-0) eGFR If NonAfricn Am (test 80 mL/min/1.73 >59 code = 91736-3) eGFR If Africn Am (test code = 92 mL/min/1.73 >59 72016-0) BUN/Creatinine Ratio (test 05-01 code = 3097-3) Sodium (test code = 2951-2) 142 mmol/L 134-144 Potassium (test code = 2823-3) 4.1 mmol/L 3.5-5.2 Chloride (test code = 2075-0) 102 mmol/L 96-106 Carbon Dioxide, Total (test 26 mmol/L 20-29 code = 2028-9) Calcium (test code = 13121-0) 9.6 mg/dL 8.7-10.2 Protein, Total (test code = 6.7 g/dL 6.0-8.5 2885-2) Albumin (test code = 1751-7) 4.5 g/dL 3.8-4.9 Globulin, Total (test code = 2.2 g/dL 1.5-4.5 52894-4) A/G Ratio (test code = 1759-0) 2.0 1.2-2.2 Bilirubin, Total (test code = 0.4 mg/dL 0.0-1.2 1975-2) Alkaline Phosphatase (test 78 IU/L 39-117 code = 6768-6) AST (SGOT) (test code = 24 IU/L 0-40 1920-8) ALT (SGPT) (test code = 26 IU/L 0-44 1742-6) [facility] Description: Comp. Metabolic Panel (142020-04-30 02:29:00 Test Item Value Reference Range Interpretation Comments Glucose (test code = 2345-7) 117 mg/dL 65-99 H BUN (test code = 3094-0) 11 mg/dL 6-24 Creatinine (test code = 1.07 mg/dL 0.76-1.27 2160-0) eGFR If NonAfricn Am (test 80 mL/min/1.73 >59 code = 93497-5) eGFR If Africn Am (test code = 92 mL/min/1.73 >59 70847-1) BUN/Creatinine Ratio (test 05-01 code = 3097-3) Sodium (test code = 2951-2) 142 mmol/L 134-144 Potassium (test code = 2823-3) 4.1 mmol/L 3.5-5.2 Chloride (test code = 2075-0) 102 mmol/L 96-106 Carbon Dioxide, Total (test 26 mmol/L - code = 2027-9) Calcium (test code = 31089-5) 9.6 mg/dL 8.7-10.2 Protein, Total (test code = 6.7 g/dL 6.0-8.5 2885-2) Albumin (test code = 1751-7) 4.5 g/dL 3.8-4.9 Globulin, Total (test code = 2.2 g/dL 1.5-4.5 30187-5) A/G Ratio (test code = 1759-0) 2.0 1.2-2.2 Bilirubin, Total (test code = 0.4 mg/dL 0.0-1.2 1975-2) Alkaline Phosphatase (test 78 IU/L 39-117 code = 6768-6) AST (SGOT) (test code = 24 IU/L 0-40 1920-8) ALT (SGPT) (test code = 26 IU/L 0-44 1742-6) [facility] Description: Comp. Metabolic Panel (142020-04-30 02:29:00 Test Item Value Reference Range Interpretation Comments Glucose (test code = 2345-7) 117 mg/dL 65-99 H BUN (test code = 3094-0) 11 mg/dL 6-24 Creatinine (test code = 1.07 mg/dL 0.76-1.27 2160-0) eGFR If NonAfricn Am (test 80 mL/min/1.73 >59 code = 62201-2) eGFR If Africn Am (test code = 92 mL/min/1.73 >59 78747-1) BUN/Creatinine Ratio (test 10 05-01 code = 3097-3) Sodium (test code = 2951-2) 142 mmol/L 134-144 Potassium (test code = 2823-3) 4.1 mmol/L 3.5-5.2 Chloride (test code = 2075-0) 102 mmol/L 96-106 Carbon Dioxide, Total (test 26 mmol/L - code = 2027-) Calcium (test code = 25297-7) 9.6 mg/dL 8.7-10.2 Protein, Total (test code = 6.7 g/dL 6.0-8.5 2885-2) Albumin (test code = 1751-7) 4.5 g/dL 3.8-4.9 Globulin, Total (test code = 2.2 g/dL 1.5-4.5 02004-7) A/G Ratio (test code = 1759-0) 2.0 1.2-2.2 Bilirubin, Total (test code = 0.4 mg/dL 0.0-1.2 1975-2) Alkaline Phosphatase (test 78 IU/L 39-117 code = 6768-6) AST (SGOT) (test code = 24 IU/L 0-40 1920-8) ALT (SGPT) (test code = 26 IU/L 0-44 1742-6) [facility] Description: Comp. Metabolic Panel (142020-04-30 02:29:00 Test Item Value Reference Range Interpretation Comments Glucose (test code = 2345-7) 117 mg/dL 65-99 H BUN (test code = 3094-0) 11 mg/dL 6-24 Creatinine (test code = 1.07 mg/dL 0.76-1.27 2160-0) eGFR If NonAfricn Am (test 80 mL/min/1.73 >59 code = 49545-9) eGFR If Africn Am (test code = 92 mL/min/1.73 >59 98193-7) BUN/Creatinine Ratio (test 10 05-01 code = 3097-3) Sodium (test code = 2951-2) 142 mmol/L 134-144 Potassium (test code = 2823-3) 4.1 mmol/L 3.5-5.2 Chloride (test code = 2075-0) 102 mmol/L 96-106 Carbon Dioxide, Total (test 26 mmol/L 20-29 code = 2027-9) Calcium (test code = 53631-1) 9.6 mg/dL 8.7-10.2 Protein, Total (test code = 6.7 g/dL 6.0-8.5 2885-2) Albumin (test code = 1751-7) 4.5 g/dL 3.8-4.9 Globulin, Total (test code = 2.2 g/dL 1.5-4.5 38575-2) A/G Ratio (test code = 1759-0) 2.0 1.2-2.2 Bilirubin, Total (test code = 0.4 mg/dL 0.0-1.2 1975-2) Alkaline Phosphatase (test 78 IU/L 39-117 code = 6768-6) AST (SGOT) (test code = 24 IU/L 0-40 1920-8) ALT (SGPT) (test code = 26 IU/L 0-44 1742-6) [facility] Description: Comp. Metabolic Panel ()2020-04-30 02:29:00 Test Item Value Reference Range Interpretation Comments Glucose (test code = 2345-7) 117 mg/dL 65-99 H BUN (test code = 3094-0) 11 mg/dL 6-24 Creatinine (test code = 1.07 mg/dL 0.76-1.27 2160-0) eGFR If NonAfricn Am (test 80 mL/min/1.73 >59 code = 89633-8) eGFR If Africn Am (test code = 92 mL/min/1.73 >59 43920-5) BUN/Creatinine Ratio (test 10 - code = 3097-3) Sodium (test code = 2951-2) 142 mmol/L 134-144 Potassium (test code = 2823-3) 4.1 mmol/L 3.5-5.2 Chloride (test code = 2075-0) 102 mmol/L 96-106 Carbon Dioxide, Total (test 26 mmol/L 20-29 code = 8-9) Calcium (test code = 80747-2) 9.6 mg/dL 8.7-10.2 Protein, Total (test code = 6.7 g/dL 6.0-8.5 2885-2) Albumin (test code = 1751-7) 4.5 g/dL 3.8-4.9 Globulin, Total (test code = 2.2 g/dL 1.5-4.5 49596-6) A/G Ratio (test code = 1759-0) 2.0 1.2-2.2 Bilirubin, Total (test code = 0.4 mg/dL 0.0-1.2 1974-09) Alkaline Phosphatase (test 78 IU/L 39-117 code = 6768-6) AST (SGOT) (test code = 24 IU/L 0-40 1920-8) ALT (SGPT) (test code = 26 IU/L 0-44 1742-6) [facility]: [facility] (2020-04-30 02:29:00 Test Item Value Reference Range Interpretation Comments Glucose (test code = 2345-7) 117 mg/dL 65-99 H BUN (test code = 3094-0) 11 mg/dL 6-24 Creatinine (test code = 1.07 mg/dL 0.76-1.27 2160-0) eGFR If NonAfricn Am (test 80 mL/min/1.73 >59 code = 74361-3) eGFR If Africn Am (test code = 92 mL/min/1.73 >59 04972-5) BUN/Creatinine Ratio (test 10 -20 code = 3097-3) Sodium (test code = 2951-2) 142 mmol/L 134-144 Potassium (test code = 2823-3) 4.1 mmol/L 3.5-5.2 Chloride (test code = 2075-0) 102 mmol/L 96-106 Carbon Dioxide, Total (test 26 mmol/L 20-29 code = 8-9) Calcium (test code = 96434-9) 9.6 mg/dL 8.7-10.2 Protein, Total (test code = 6.7 g/dL 6.0-8.5 2885-2) Albumin (test code = 1751-7) 4.5 g/dL 3.8-4.9 Globulin, Total (test code = 2.2 g/dL 1.5-4.5 02047-4) A/G Ratio (test code = 1759-0) 2.0 1.2-2.2 Bilirubin, Total (test code = 0.4 mg/dL 0.0-1.2 1974-09) Alkaline Phosphatase (test 78 IU/L 39-117 code = 6768-6) AST (SGOT) (test code = 24 IU/L 0-40 1920-8) ALT (SGPT) (test code = 26 IU/L 0-44 1742-6) [facility] Description: Comp. Metabolic Panel (14)2020-04-30 02:29:00 Test Item Value Reference Range Interpretation Comments Glucose (test code = 2345-7) 117 mg/dL 65-99 H BUN (test code = 3094-0) 11 mg/dL 6-24 Creatinine (test code = 1.07 mg/dL 0.76-1.27 2160-0) eGFR If NonAfricn Am (test 80 mL/min/1.73 >59 code = 63819-0) eGFR If Africn Am (test code = 92 mL/min/1.73 >59 48564-7) BUN/Creatinine Ratio (test 10 - code = 3097-3) Sodium (test code = 2951-2) 142 mmol/L 134-144 Potassium (test code = 2823-3) 4.1 mmol/L 3.5-5.2 Chloride (test code = 2075-0) 102 mmol/L 96-106 Carbon Dioxide, Total (test 26 mmol/L - code = 8-9) Calcium (test code = 33769-7) 9.6 mg/dL 8.7-10.2 Protein, Total (test code = 6.7 g/dL 6.0-8.5 2885-2) Albumin (test code = 1751-7) 4.5 g/dL 3.8-4.9 Globulin, Total (test code = 2.2 g/dL 1.5-4.5 68115-5) A/G Ratio (test code = 1759-0) 2.0 1.2-2.2 Bilirubin, Total (test code = 0.4 mg/dL 0.0-1.2 1975-2) Alkaline Phosphatase (test 78 IU/L 39-117 code = 6768-6) AST (SGOT) (test code = 24 IU/L 0-40 1920-8) ALT (SGPT) (test code = 26 IU/L 0-44 1742-6) [facility] Description: Comp. Metabolic Panel (14)2020-04-30 02:29:00 Test Item Value Reference Range Interpretation Comments Glucose (test code = 2345-7) 117 mg/dL 65-99 H BUN (test code = 3094-0) 11 mg/dL 6-24 Creatinine (test code = 1.07 mg/dL 0.76-1.27 2160-0) eGFR If NonAfricn Am (test 80 mL/min/1.73 >59 code = 54901-8) eGFR If Africn Am (test code = 92 mL/min/1.73 >59 36809-8) BUN/Creatinine Ratio (test 10 05-01 code = 3097-3) Sodium (test code = 2951-2) 142 mmol/L 134-144 Potassium (test code = 2823-3) 4.1 mmol/L 3.5-5.2 Chloride (test code = 2075-0) 102 mmol/L 96-106 Carbon Dioxide, Total (test 26 mmol/L - code = 8-9) Calcium (test code = 29912-7) 9.6 mg/dL 8.7-10.2 Protein, Total (test code = 6.7 g/dL 6.0-8.5 2885-2) Albumin (test code = 1751-7) 4.5 g/dL 3.8-4.9 Globulin, Total (test code = 2.2 g/dL 1.5-4.5 20386-8) A/G Ratio (test code = 1759-0) 2.0 1.2-2.2 Bilirubin, Total (test code = 0.4 mg/dL 0.0-1.2 1975-2) Alkaline Phosphatase (test 78 IU/L 39-117 code = 6768-6) AST (SGOT) (test code = 24 IU/L 0-40 1920-8) ALT (SGPT) (test code = 26 IU/L 0-44 1742-6) [facility] Description: Albumin/Creatinine Ratio,[id number] 20:06:00 Test Item Value Reference Range Interpretation Comments Creatinine, Urine 159.4 mg/dL Not Estab. (test code = 2161-8) Albumin, Urine 10.4 ug/mL Not Estab. (test code = 88840-0) Alb/Creat Ratio 7 mg/gcreat 0-29 Normal: 0 - 29 (test code = Moderately incr eased: 9318-7) 30 - 300 Severe ly increased: >300 Please note r eference interval change
<b r/>Perfo rmed by:
[facility] ([place])
<br/&g t; [facility] Description: Albumin/Creatinine Ratio,[id number] 20:06:00 Test Item Value Reference Range Interpretation Comments Creatinine, Urine 159.4 mg/dL Not Estab. (test code = 2161-8) Albumin, Urine 10.4 ug/mL Not Estab. (test code = 10603-7) Alb/Creat Ratio 7 mg/gcreat 0-29 Normal: 0 - 29 (test code = Moderately incr eased: 9318-7) 30 - 300 Severe ly increased: >300 Please note r eference interval change
<b r/>Perfo rmed by:
[facility] ([place])
<br/&g t; [facility] Description: Albumin/Creatinine Ratio,[id number] 20:06:00 Test Item Value Reference Range Interpretation Comments Creatinine, Urine 159.4 mg/dL Not Estab. (test code = 2161-8) Albumin, Urine 10.4 ug/mL Not Estab. (test code = 76475-5) Alb/Creat Ratio 7 mg/gcreat 0-29 Normal: 0 - 29 (test code = Moderately incr eased: 9318-7) 30 - 300 Severe ly increased: >300 Please note r eference interval change
<b r/>Perfo rmed by:
[facility] ([place])
<br/&g t; [facility] Description: Albumin/Creatinine Ratio,[id number] 20:06:00 Test Item Value Reference Range Interpretation Comments Creatinine, Urine 159.4 mg/dL Not Estab. (test code = 2161-8) Albumin, Urine 10.4 ug/mL Not Estab. (test code = 28929-3) Alb/Creat Ratio 7 mg/gcreat 0-29 Normal: 0 - 29 (test code = Moderately incr eased: 9318-7) 30 - 300 Sever flor increased: >300 Please note r eference interval change
<b r/>Perfo rmed by:
[facility] ([place])
<br/&g t; [facility] Description: Albumin/Creatinine Ratio,[id number] 20:06:00 Test Item Value Reference Range Interpretation Comments Creatinine, Urine 159.4 mg/dL Not Estab. (test code = 2161-8) Albumin, Urine 10.4 ug/mL Not Estab. (test code = 01437-6) Alb/Creat Ratio 7 mg/gcreat 0-29 Normal: 0 - 29 (test code = Moderately incr eased: 9318-7) 30 - 300 Severe ly increased: >300 Please note r eference interval change
<b r/>Perfo rmed by:
[facility] ([place])

[facility] Description: Albumin/Creatinine Ratio,[id number] 20:06:00 Test Item Value Reference Range Interpretation Comments Creatinine, Urine 159.4 mg/dL Not Estab. (test code = 2161-8) Albumin, Urine 10.4 ug/mL Not Estab. (test code = 16443-1) Alb/Creat Ratio 7 mg/gcreat 0-29 Normal: 0 - 29 (test code = Moderately incr eased: 9318-7) 30 - 300 Severe ly increased: >300 Please note r eference interval change
<b r/>Perfo rmed by:
[facility] ([place])
<br/&g t; [facility] Description: Albumin/Creatinine Ratio,[id number] 20:06:00 Test Item Value Reference Range Interpretation Comments Creatinine, Urine 159.4 mg/dL Not Estab. (test code = 2161-8) Albumin, Urine 10.4 ug/mL Not Estab. (test code = 79004-6) Alb/Creat Ratio 7 mg/gcreat 0-29 Normal: 0 - 29 (test code = Moderately incr eased: 9318-7) 30 - 300 Sever flor increased: >300 Please note r eference interval change
<b r/>Perfo rmed by:
[facility] ([place])
<br/&g t; [facility] Description: Albumin/Creatinine Ratio,[id number] 20:06:00 Test Item Value Reference Range Interpretation Comments Creatinine, Urine 159.4 mg/dL Not Estab. (test code = 2161-8) Albumin, Urine 10.4 ug/mL Not Estab. (test code = 16671-1) Alb/Creat Ratio 7 mg/gcreat 0-29 Normal: 0 - 29 (test code = Moderately incr eased: 9318-7) 30 - 300 Severe ly increased: >30 0 Please note r eference interval change
<b r/>Perfo rmed by:
[facility] ([place])
<br/&g t; [facility]: Albumin/Creatinine Ratio,[id number] 20:06:00 Test Item Value Reference Range Interpretation Comments Creatinine, Urine 159.4 mg/dL Not Estab. (test code = 2161-8) Albumin, Urine 10.4 ug/mL Not Estab. (test code = 41594-7) Alb/Creat Ratio 7 mg/gcreat 0-29 Normal: 0 - 29 (test code = Moderately incr eased: 9318-7) 30 - 300 Severe ly increased: >300 Please note r eference interval changePerform ed by:Chte martinez ([place]) [facility] Description: Albumin/Creatinine Ratio,[id number] 20:06:00 Test Item Value Reference Range Interpretation Comments Creatinine, Urine 159.4 mg/dL Not Estab. (test code = 2161-8) Albumin, Urine 10.4 ug/mL Not Estab. (test code = 94123-3) Alb/Creat Ratio 7 mg/gcreat 0-29 Normal: 0 - 29 (test code = Moderately incr eased: 9318-7) 30 - 300 Sever flor increased: >300 Please note r eference interval changePerform ed by:[facility] ([place]) [facility] Description: Albumin/Creatinine Ratio,[id number] 20:06:00 Test Item Value Reference Range Interpretation Comments Creatinine, Urine 159.4 mg/dL Not Estab. (test code = 216-8) Albumin, Urine 10.4 ug/mL Not Estab. (test code = 62461-7) Alb/Creat Ratio 7 mg/gcreat 0-29 Normal: 0 - 29 (test code = Moderately incr eased: 9318-7) 30 - 300 Severe ly increased: >300 Please note r eference interval changePerform ed by:Chet martinez ([place]) [facility] Description: Albumin/Creatinine Ratio,[id number] 20:06:00 Test Item Value Reference Range Interpretation Comments Creatinine, Urine 159.4 mg/dL Not Estab. (test code = 216-) Albumin, Urine 10.4 ug/mL Not Estab. (test code = 59432-5) Alb/Creat Ratio 7 mg/gcreat 0-29 Normal: 0 - 29 (test code = Moderately incr eased: 9318-7) 30 - 300 Severe ly increased: >300 Please note r eference interval changePerform ed by:Chet martinez ([place]) [facility] Description: Albumin/Creatinine Ratio,[id number] 20:06:00 Test Item Value Reference Range Interpretation Comments Creatinine, Urine 159.4 mg/dL Not Estab. (test code = 216-8) Albumin, Urine 10.4 ug/mL Not Estab. (test code = 46953-5) Alb/Creat Ratio 7 mg/gcreat 0-29 Normal: 0 - 29 (test code = Moderately incr eased: 9318-7) 30 - 300 Severe ly increased: >300 Please note r eference interval change
<b r/>Perfo rmed by:
Viri Montilla ([place])
<br/&g t; [facility] Description: Albumin/Creatinine Ratio,[id number] 20:06:00 Test Item Value Reference Range Interpretation Comments Creatinine, Urine 159.4 mg/dL Not Estab. (test code = 216-) Albumin, Urine 10.4 ug/mL Not Estab. (test code = 87980-3) Alb/Creat Ratio 7 mg/gcreat 0-29 Normal: 0 - 29 (test code = Moderately incr eased: 9318-7) 30 - 300 Sever flor increased: >300 Please note r eference interval changePerform ed by:Chet martinez ([place]) [facility] Description: Albumin/Creatinine Ratio,[id number] 20:06:00 Test Item Value Reference Range Interpretation Comments Creatinine, Urine 159.4 mg/dL Not Estab. (test code = 2161-8) Albumin, Urine 10.4 ug/mL Not Estab. (test code = 14930-4) Alb/Creat Ratio 7 mg/gcreat 0-29 Normal: 0 - 29 (test code = Moderately incr eased: 9318-7) 30 - 300 Severe ly increased: >300 Please note r eference interval changePerform ed by:Chet martinez ([place]) [facility] Description: Albumin/Creatinine Ratio,[id number] 20:06:00 Test Item Value Reference Range Interpretation Comments Creatinine, Urine 159.4 mg/dL Not Estab. (test code = 2161-8) Albumin, Urine 10.4 ug/mL Not Estab. (test code = 18139-1) Alb/Creat Ratio 7 mg/gcreat 0-29 Normal: 0 - 29 (test code = Moderately incr eased: 9318-7) 30 - 300 Severe ly increased: >300 Please note r eference interval changePerform ed by:Chet martinez (HD) [facility] Description: Albumin/Creatinine Ratio,[id number] 20:06:00 Test Item Value Reference Range Interpretation Comments Creatinine, Urine 159.4 mg/dL Not Estab. (test code = 2161-8) Albumin, Urine 10.4 ug/mL Not Estab. (test code = 87202-9) Alb/Creat Ratio 7 mg/gcreat 0-29 Normal: 0 - 29 (test code = Moderately incr eased: 9318-7) 30 - 300 Severe ly increased: >300 Please note r eference interval changePerform ed by:Chet martinez (HD) [facility] Description: Albumin/Creatinine Ratio,[id number] 20:06:00 Test Item Value Reference Range Interpretation Comments Creatinine, Urine 159.4 mg/dL Not Estab. (test code = 2161-8) Albumin, Urine 10.4 ug/mL Not Estab. (test code = 24864-8) Alb/Creat Ratio 7 mg/gcreat 0-29 Normal: 0 - 29 (test code = Moderately incr eased: 9318-7) 30 - 300 Severe ly increased: >300 Please note r eference interval changePerform ed by:[facility] Georgette martinez (HD) [facility] Description: Albumin/Creatinine Ratio,[id number] 20:06:00 Test Item Value Reference Range Interpretation Comments Creatinine, Urine 159.4 mg/dL Not Estab. (test code = 2161-8) Albumin, Urine 10.4 ug/mL Not Estab. (test code = 18006-4) Alb/Creat Ratio 7 mg/gcreat 0-29 Normal: 0 - 29 (test code = Moderately incr eased: 9318-7) 30 - 300 Severe ly increased: >300 Please note r eference interval change
<b r/>Perfo rmed by:
Viri Edmonds Jones (HD)
<br/&g t; [facility] Description: Albumin/Creatinine Ratio,[id number] 20:06:00 Test Item Value Reference Range Interpretation Comments Creatinine, Urine 159.4 mg/dL Not Estab. (test code = 2161-8) Albumin, Urine 10.4 ug/mL Not Estab. (test code = 57384-4) Alb/Creat Ratio 7 mg/gcreat 0-29 Normal: 0 - 29 (test code = Moderately incr eased: 9318-7) 30 - 300 Severe ly increased: >300 Please note r eference interval change
<b r/>Perfo rmed by:
[facility]
<br/&g t; [facility] Description: Albumin/Creatinine Ratio,[id number] 20:06:00 Test Item Value Reference Range Interpretation Comments Creatinine, Urine 159.4 mg/dL Not Estab. (test code = 2161-8) Albumin, Urine 10.4 ug/mL Not Estab. (test code = 05689-8) Alb/Creat Ratio 7 mg/gcreat 0-29 Normal: 0 - 29 (test code = Moderately incr eased: 9318-7) 30 - 300 Severe ly increased: >300 Please note r eference interval change
<b r/>Perfo rmed by:
[employer] Jones (HD)
<br/&g t; [facility] Description: Albumin/Creatinine Ratio,[id number] 20:06:00 Test Item Value Reference Range Interpretation Comments Creatinine, Urine 159.4 mg/dL Not Estab. (test code = 2161-8) Albumin, Urine 10.4 ug/mL Not Estab. (test code = 79271-6) Alb/Creat Ratio 7 mg/gcreat 0-29 Normal: 0 - 29 (test code = Moderately incr eased: 9318-7) 30 - 300 Severe ly increased: >300 Please note r eference interval change
<b r/>Perfo rmed by:
[employer] [place] ()
<br/&g t; [facility] Description: Hepatitis B Surf Ab [id number] 08:55:00 Test Item Value Reference Range Interpretation Comments Hepatitis B Surf Ab <3.1 See_Comment L Status of Immunity Quant (test code = Anti-HBs Level 51592-3) --- Inconsistent wi th Immunity 0.0 - 9.9 Consistent with Immunity >9.9

P erformed by:
[facility] ()

[Automated message] The [employer] stem which generated this result transmitted ref erence range: Immunity >9.9. The reference range was not used to interpr et this result as normal/abnormal . [facility] Description: Hepatitis B Surf Ab [id number] 08:55:00 Test Item Value Reference Range Interpretation Comments Hepatitis B Surf Ab <3.1 See_Comment L Status of Immunity Quant (test code = Anti-HBs Level 88951-5) --- Inconsistent wi th Immunity 0.0 - 9.9 Consistent with Immunity >9.9

P erformed by:
[employer] ()

[Automated message] The sy stem which generated this result transmitted ref erence range: Immunity >9.9. The reference range was not used to interpr et this result as normal/abnormal . [facility] Description: Hepatitis B Surf Ab [id number] 08:55:00 Test Item Value Reference Range Interpretation Comments Hepatitis B Surf Ab <3.1 See_Comment L Status of Immunity Quant (test code = Anti-HBs Level 29825-8) --- Inconsistent wi th Immunity 0.0 - 9.9 Consistent with Immunity >9.9

P erformed by:
[employer] ()

[Automated message] The [employer] stem which generated this result transmitted ref erence range: Immunity >9.9. The reference range was not used to interpr et this result as normal/abnormal . [facility] Description: Hepatitis B Surf Ab [id number] 08:55:00 Test Item Value Reference Range Interpretation Comments Hepatitis B Surf Ab <3.1 See_Comment L Status of Immunity Quant (test code = Anti-HBs Level 54669-7) --- Inconsistent wi th Immunity 0.0 - 9.9 Consistent with Immunity >9.9

P erformed by:
[employer] ()

[Automated message] The [employer] stem which generated this result transmitted ref erence range: Immunity >9.9. The reference range was not used to interpr et this result as normal/abnormal . [facility]: Hepatitis B Surf Ab [id number] 08:55:00 Test Item Value Reference Range Interpretation Comments Hepatitis B Surf Ab <3.1 See_Comment L Status of Immunity Quant (test code = Anti-HBs Level 81873-8) --- Inconsistent wi th Immunity 0.0 - 9.9 Consistent with Immunity >9.9

P erformed by:
[facility] [place] ()

[Automated message] The sy stem which generated this result transmitted ref erence range: Immunity >9.9. The reference range was not used to interpr et this result as normal/abnormal . [facility] Description: Hepatitis B Surf Ab [id number] 08:55:00 Test Item Value Reference Range Interpretation Comments Hepatitis B Surf Ab <3.1 See_Comment L Status of Immunity Quant (test code = Anti-HBs Level 51548-6) --- Inconsistent wi th Immunity 0.0 - 9.9 Consistent with Immunity >9.9

P erformed by:
[facility] [place] ()

[Automated message] The sy stem which generated this result transmitted ref erence range: Immunity >9.9. The reference range was not used to interpr et this result as normal/abnormal . [facility] Description: Hepatitis B Surf Ab [id number] 08:55:00 Test Item Value Reference Range Interpretation Comments Hepatitis B Surf Ab <3.1 See_Comment L Status of Immunity Quant (test code = Anti-HBs Level 40999-1) --- Inconsistent wi th Immunity 0.0 - 9.9 Consistent with Immunity >9.9

P erformed by:
[facility] ()

[Automated message] The sy stem which generated this result transmitted ref erence range: Immunity >9.9. The reference range was not used to interpr et this result as normal/abnormal . [facility] Description: Hepatitis B Surf Ab [id number] 08:55:00 Test Item Value Reference Range Interpretation Comments Hepatitis B Surf Ab <3.1 See_Comment L Status of Immunity Quant (test code = Anti-HBs Level 95009-5) --- Inconsistent wi th Immunity 0.0 - 9.9 Consistent with Immunity >9.9

P erformed by:
[facility] ()

[Automated message] The sy stem which generated this result transmitted ref erence range: Immunity >9.9. The reference range was not used to interpr et this result as normal/abnormal . [facility] Description: Hepatitis B Surf Ab [id number] 08:55:00 Test Item Value Reference Range Interpretation Comments Hepatitis B Surf Ab <3.1 See_Comment L Status of Immunity Quant (test code = Anti-HBs Level 12032-9) --- Inconsistent wi th Immunity 0.0 - 9.9 Consistent with Immunity >9.9Performed b y:[facility] () [A utomated message] The sy stem which generated this result transmitted ref erence range: Immunity >9.9. The reference range was not used to interpr et this result as normal/abnormal . [facility] Description: Hepatitis B Surf Ab [id number] 08:55:00 Test Item Value Reference Range Interpretation Comments Hepatitis B Surf Ab <3.1 See_Comment L Status of Immunity Quant (test code = Anti-HBs Level 66628-4) --- Inconsistent wi th Immunity 0.0 - 9.9 Consistent with Immunity >9.9Performed b y:[facility] [place] () [A utomated message] The sy stem which generated this result transmitted ref erence range: Immunity >9.9. The reference range was not used to interpr et this result as normal/abnormal . [facility] Description: Hepatitis B Surf Ab [id number] 08:55:00 Test Item Value Reference Range Interpretation Comments Hepatitis B Surf Ab <3.1 See_Comment L Status of Immunity Quant (test code = Anti-HBs Level 21418-8) --- Inconsistent wi th Immunity 0.0 - 9.9 Consistent with Immunity >9.9Performed b y:[facility] [place] () [A utomated message] The sy stem which generated this result transmitted ref erence range: Immunity >9.9. The reference range was not used to interpr et this result as normal/abnormal . [facility] Description: Hepatitis B Surf Ab [id number] 08:55:00 Test Item Value Reference Range Interpretation Comments Hepatitis B Surf Ab <3.1 See_Comment L Status of Immunity Quant (test code = Anti-HBs Level 30215-1) --- Inconsistent wi th Immunity 0.0 - 9.9 Consistent with Immunity >9.9Performed b y:[facility] [place] () [A utomated message] The sy stem which generated this result transmitted ref erence range: Immunity >9.9. The reference range was not used to interpr et this result as normal/abnormal . [facility] Description: Hepatitis B Surf Ab [id number] 08:55:00 Test Item Value Reference Range Interpretation Comments Hepatitis B Surf Ab <3.1 See_Comment L Status of Immunity Quant (test code = Anti-HBs Level 66427-8) --- Inconsistent wi th Immunity 0.0 - 9.9 Consistent with Immunity >9.9Performed b y:[facility] [place] () [A utomated message] The sy stem which generated this result transmitted ref erence range: Immunity >9.9. The reference range was not used to interpr et this result as normal/abnormal . [facility] Description: Hepatitis B Surf Ab [id number] 08:55:00 Test Item Value Reference Range Interpretation Comments Hepatitis B Surf Ab <3.1 See_Comment L Status of Immunity Quant (test code = Anti-HBs Level 30701-3) --- Inconsistent wi th Immunity 0.0 - 9.9 Consistent with Immunity >9.9

P erformed by:
[facility] [place] ()

[Automated message] The sy stem which generated this result transmitted ref erence range: Immunity >9.9. The reference range was not used to interpr et this result as normal/abnormal . [facility] Description: Hepatitis B Surf Ab [id number] 08:55:00 Test Item Value Reference Range Interpretation Comments Hepatitis B Surf Ab <3.1 See_Comment L Status of Immunity Quant (test code = Anti-HBs Level 30365-6) --- Inconsistent wi th Immunity 0.0 - 9.9 Consistent with Immunity >9.9Performed b y:[facility] [place] () [A utomated message] The sy stem which generated this result transmitted ref erence range: Immunity >9.9. The reference range was not used to interpr et this result as normal/abnormal . [facility] Description: Hepatitis B Surf Ab [id number] 08:55:00 Test Item Value Reference Range Interpretation Comments Hepatitis B Surf Ab <3.1 See_Comment L Status of Immunity Quant (test code = Anti-HBs Level 90088-5) --- Inconsistent wi th Immunity 0.0 - 9.9 Consistent with Immunity >9.9Performed b y:[facility] [place] () [A utomated message] The sy stem which generated this result transmitted ref erence range: Immunity >9.9. The reference range was not used to interpr et this result as normal/abnormal . [facility] Description: Hepatitis B Surf Ab [id number] 08:55:00 Test Item Value Reference Range Interpretation Comments Hepatitis B Surf Ab <3.1 See_Comment L Status of Immunity Quant (test code = Anti-HBs Level 80817-4) --- Inconsistent wi th Immunity 0.0 - 9.9 Consistent with Immunity >9.9Performed b y:[facility] [place] () [A utomated message] The sy stem which generated this result transmitted ref erence range: Immunity >9.9. The reference range was not used to interpr et this result as normal/abnormal . [facility] Description: Hepatitis B Surf Ab [id number] 08:55:00 Test Item Value Reference Range Interpretation Comments Hepatitis B Surf Ab <3.1 See_Comment L Status of Immunity Quant (test code = Anti-HBs Level 85195-4) --- Inconsistent wi th Immunity 0.0 - 9.9 Consistent with Immunity >9.9Performed b y:C[facility] [place] () [A utomated message] The sy stem which generated this result transmitted ref erence range: Immunity >9.9. The reference range was not used to interpr et this result as normal/abnormal . [facility] Description: Hepatitis B Surf Ab [id number] 08:55:00 Test Item Value Reference Range Interpretation Comments Hepatitis B Surf Ab <3.1 See_Comment L Status of Immunity Quant (test code = Anti-HBs Level 85728-8) --- Inconsistent wi th Immunity 0.0 - 9.9 Consistent with Immunity >9.9

P erformed by:
[facility] [place] ()

[Automated message] The sy stem which generated this result transmitted ref erence range: Immunity >9.9. The reference range was not used to interpr et this result as normal/abnormal . [facility]: Hepatitis B Surf Ab [id number] 08:55:00 Test Item Value Reference Range Interpretation Comments Hepatitis B Surf Ab <3.1 See_Comment L Status of Immunity Quant (test code = Anti-HBs Level 73693-5) --- Inconsistent wi th Immunity 0.0 - 9.9 Consistent with Immunity >9.9

P erformed by:
[facility] [place] ()

[Automated message] The sy stem which generated this result transmitted ref erence range: Immunity >9.9. The reference range was not used to interpr et this result as normal/abnormal . [facility] Description: Hepatitis B Surf Ab [id number] 08:55:00 Test Item Value Reference Range Interpretation Comments Hepatitis B Surf Ab <3.1 See_Comment L Status of Immunity Quant (test code = Anti-HBs Level 69050-4) --- Inconsistent wi th Immunity 0.0 - 9.9 Consistent with Immunity >9.9

P erformed by:
[facility] [place] ()

[Automated message] The sy stem which generated this result transmitted ref erence range: Immunity >9.9. The reference range was not used to interpr et this result as normal/abnormal . [facility] Description: Hepatitis B Surf Ab [id number] 08:55:00 Test Item Value Reference Range Interpretation Comments Hepatitis B Surf Ab <3.1 See_Comment L Status of Immunity Quant (test code = Anti-HBs Level 43937-6) --- Inconsistent wi th Immunity 0.0 - 9.9 Consistent with Immunity >9.9

P erformed by:
[facility] [place] (HD)

[Automated message] The sy stem which generated this result transmitted ref erence range: Immunity >9.9. The reference range was not used to interpr et this result as normal/abnormal . [facility] Description: Lipid [id number] 05:06:00 Test Item Value Reference Range Interpretation Comments Cholesterol, Total (test code = 131 mg/dL 886-484 7276-3) Triglycerides (test code = 2571-8) 187 mg/dL 0-149 H HDL Cholesterol (test code = 37 mg/dL >39 L 5-9) VLDL Cholesterol Jose Roberto (test code = 37 mg/dL 5-40 82218-9) LDL Cholesterol Calc (test code = 57 mg/dL 0-99 99016-0) Comment: (test code = 50435-4) [facility] Description: Lipid [id number] 05:06:00 Test Item Value Reference Range Interpretation Comments Cholesterol, Total (test code = 131 mg/dL 972-997 8915-3) Triglycerides (test code = 2571-8) 187 mg/dL 0-149 H HDL Cholesterol (test code = 37 mg/dL >39 L 5-9) VLDL Cholesterol Jose Roberto (test code = 37 mg/dL 5-40 04488-3) LDL Cholesterol Calc (test code = 57 mg/dL 0-99 58684-2) Comment: (test code = 25507-5) [facility] Description: Lipid [id number] 05:06:00 Test Item Value Reference Range Interpretation Comments Cholesterol, Total (test code = 131 mg/dL 244-603 3717-3) Triglycerides (test code = 2571-8) 187 mg/dL 0-149 H HDL Cholesterol (test code = 37 mg/dL >39 L 2085-9) VLDL Cholesterol Jose Roberto (test code = 37 mg/dL 5-40 97090-1) LDL Cholesterol Calc (test code = 57 mg/dL 0-99 84737-9) Comment: (test code = 17194-7) [facility] Description: Lipid [id number] 05:06:00 Test Item Value Reference Range Interpretation Comments Cholesterol, Total (test code = 131 mg/dL 977-008 8572-3) Triglycerides (test code = 2571-8) 187 mg/dL 0-149 H HDL Cholesterol (test code = 37 mg/dL >39 L 2085-9) VLDL Cholesterol Jose Roberto (test code = 37 mg/dL 5-40 77179-8) LDL Cholesterol Calc (test code = 57 mg/dL 0-99 67172-6) Comment: (test code = 12725-0) [facility] Description: Lipid [id number] 05:06:00 Test Item Value Reference Range Interpretation Comments Cholesterol, Total (test code = 131 mg/dL 382-858 5994-3) Triglycerides (test code = 2571-8) 187 mg/dL 0-149 H HDL Cholesterol (test code = 37 mg/dL >39 L 2085-9) VLDL Cholesterol Jose Roberto (test code = 37 mg/dL 5-40 49037-7) LDL Cholesterol Calc (test code = 57 mg/dL 0-99 30394-5) Comment: (test code = 74380-8) [facility] Description: Lipid [id number] 05:06:00 Test Item Value Reference Range Interpretation Comments Cholesterol, Total (test code = 131 mg/dL 767-128 6889-3) Triglycerides (test code = 2571-8) 187 mg/dL 0-149 H HDL Cholesterol (test code = 37 mg/dL >39 L 2085-9) VLDL Cholesterol Jose Roberto (test code = 37 mg/dL 5-40 48852-4) LDL Cholesterol Calc (test code = 57 mg/dL 0-99 08202-8) Comment: (test code = 85454-6) [facility] Description: Lipid [id number] 05:06:00 Test Item Value Reference Range Interpretation Comments Cholesterol, Total (test code = 131 mg/dL 340-982 3648-3) Triglycerides (test code = 2571-8) 187 mg/dL 0-149 H HDL Cholesterol (test code = 37 mg/dL >39 L 2085-9) VLDL Cholesterol Jose Roberto (test code = 37 mg/dL 5-40 57548-9) LDL Cholesterol Calc (test code = 57 mg/dL 0-99 06755-0) Comment: (test code = 08423-8) [facility] Description: Lipid [id number] 05:06:00 Test Item Value Reference Range Interpretation Comments Cholesterol, Total (test code = 131 mg/dL 205-530 2514-3) Triglycerides (test code = 2571-8) 187 mg/dL 0-149 H HDL Cholesterol (test code = 37 mg/dL >39 L 2085-9) VLDL Cholesterol Jose Roberto (test code = 37 mg/dL 5-40 43332-8) LDL Cholesterol Calc (test code = 57 mg/dL 0-99 87306-6) Comment: (test code = 73089-5) [facility] Description: Lipid [id number] 05:06:00 Test Item Value Reference Range Interpretation Comments Cholesterol, Total (test code = 131 mg/dL 831-198 2881-3) Triglycerides (test code = 2571-8) 187 mg/dL 0-149 H HDL Cholesterol (test code = 37 mg/dL >39 L 2085-9) VLDL Cholesterol Jose Roberto (test code = 37 mg/dL 5-40 70770-0) LDL Cholesterol Calc (test code = 57 mg/dL 0-99 48804-8) Comment: (test code = 66498-4) [facility] Description: Lipid [id number] 05:06:00 Test Item Value Reference Range Interpretation Comments Cholesterol, Total (test code = 131 mg/dL 557-115 4907-3) Triglycerides (test code = 2571-8) 187 mg/dL 0-149 H HDL Cholesterol (test code = 37 mg/dL >39 L 2085-9) VLDL Cholesterol Jose Roberto (test code = 37 mg/dL 5-40 97870-9) LDL Cholesterol Calc (test code = 57 mg/dL 0-99 82479-5) Comment: (test code = 65108-9) [facility] Description: Lipid [id number] 05:06:00 Test Item Value Reference Range Interpretation Comments Cholesterol, Total (test code = 131 mg/dL 440-412 7555-3) Triglycerides (test code = 2571-8) 187 mg/dL 0-149 H HDL Cholesterol (test code = 37 mg/dL >39 L 2085-9) VLDL Cholesterol Jose Roberto (test code = 37 mg/dL 5-40 15473-9) LDL Cholesterol Calc (test code = 57 mg/dL 0-99 63261-0) Comment: (test code = 00742-9) [facility] Description: Lipid [id number] 05:06:00 Test Item Value Reference Range Interpretation Comments Cholesterol, Total (test code = 131 mg/dL 450-264 1765-3) Triglycerides (test code = 2571-8) 187 mg/dL 0-149 H HDL Cholesterol (test code = 37 mg/dL >39 L 5-9) VLDL Cholesterol Jose Roberto (test code = 37 mg/dL 5-40 90614-7) LDL Cholesterol Calc (test code = 57 mg/dL 0-99 82352-5) Comment: (test code = 86139-5) [facility] Description: Lipid [id number] 05:06:00 Test Item Value Reference Range Interpretation Comments Cholesterol, Total (test code = 131 mg/dL 622-087 3159-3) Triglycerides (test code = 2571-8) 187 mg/dL 0-149 H HDL Cholesterol (test code = 37 mg/dL >39 L 2084-9) VLDL Cholesterol Jose Roberto (test code = 37 mg/dL 5-40 65964-0) LDL Cholesterol Calc (test code = 57 mg/dL 0-99 47650-3) Comment: (test code = 46473-0) [facility] Description: Lipid [id number] 05:06:00 Test Item Value Reference Range Interpretation Comments Cholesterol, Total (test code = 131 mg/dL 400-160 7570-3) Triglycerides (test code = 2571-8) 187 mg/dL 0-149 H HDL Cholesterol (test code = 37 mg/dL >39 L 2084-9) VLDL Cholesterol Jose Roberto (test code = 37 mg/dL 5-40 30215-5) LDL Cholesterol Calc (test code = 57 mg/dL 0-99 53190-6) Comment: (test code = 19679-3) [facility] Description: Lipid [id number] 05:06:00 Test Item Value Reference Range Interpretation Comments Cholesterol, Total (test code = 131 mg/dL 158-726 5106-3) Triglycerides (test code = 2571-8) 187 mg/dL 0-149 H HDL Cholesterol (test code = 37 mg/dL >39 L 2085-9) VLDL Cholesterol Jose Roberto (test code = 37 mg/dL 5-40 51577-5) LDL Cholesterol Calc (test code = 57 mg/dL 0-99 91620-9) Comment: (test code = 51899-1) [facility] Description: Lipid [id number] 05:06:00 Test Item Value Reference Range Interpretation Comments Cholesterol, Total (test code = 131 mg/dL 682-388 6727-3) Triglycerides (test code = 2571-8) 187 mg/dL 0-149 H HDL Cholesterol (test code = 37 mg/dL >39 L 2085-9) VLDL Cholesterol Jose Roberto (test code = 37 mg/dL 5-40 64679-3) LDL Cholesterol Calc (test code = 57 mg/dL 0-99 67319-0) Comment: (test code = 61951-7) [facility] Description: Lipid [id number] 05:06:00 Test Item Value Reference Range Interpretation Comments Cholesterol, Total (test code = 131 mg/dL 221-703 0165-3) Triglycerides (test code = 2571-8) 187 mg/dL 0-149 H HDL Cholesterol (test code = 37 mg/dL >39 L 2085-9) VLDL Cholesterol Jose Roberto (test code = 37 mg/dL 5-40 04452-4) LDL Cholesterol Calc (test code = 57 mg/dL 0-99 31661-4) Comment: (test code = 84522-4) [facility] Description: Lipid [id number] 05:06:00 Test Item Value Reference Range Interpretation Comments Cholesterol, Total (test code = 131 mg/dL 091-077 6366-3) Triglycerides (test code = 2571-8) 187 mg/dL 0-149 H HDL Cholesterol (test code = 37 mg/dL >39 L 2085-9) VLDL Cholesterol Jose Roberto (test code = 37 mg/dL 5-40 21306-1) LDL Cholesterol Calc (test code = 57 mg/dL 0-99 46041-5) Comment: (test code = 13091-1) [facility] Description: Lipid [id number] 05:06:00 Test Item Value Reference Range Interpretation Comments Cholesterol, Total (test code = 131 mg/dL 670-204 4004-3) Triglycerides (test code = 2571-8) 187 mg/dL 0-149 H HDL Cholesterol (test code = 37 mg/dL >39 L 2085-9) VLDL Cholesterol Jose Roberto (test code = 37 mg/dL 5-40 93595-1) LDL Cholesterol Calc (test code = 57 mg/dL 0-99 18500-9) Comment: (test code = 17078-8) [facility] Description: Lipid [id number] 05:06:00 Test Item Value Reference Range Interpretation Comments Cholesterol, Total (test code = 131 mg/dL 436-733 4964-3) Triglycerides (test code = 2571-8) 187 mg/dL 0-149 H HDL Cholesterol (test code = 37 mg/dL >39 L 2085-9) VLDL Cholesterol Jose Roberto (test code = 37 mg/dL 5-40 58094-0) LDL Cholesterol Calc (test code = 57 mg/dL 0-99 81183-1) Comment: (test code = 16747-9) [facility] Description: Lipid [id number] 05:06:00 Test Item Value Reference Range Interpretation Comments Cholesterol, Total (test code = 131 mg/dL 264-560 9257-3) Triglycerides (test code = 2571-8) 187 mg/dL 0-149 H HDL Cholesterol (test code = 37 mg/dL >39 L 5-9) VLDL Cholesterol Jose Roberto (test code = 37 mg/dL 5-40 21595-9) LDL Cholesterol Calc (test code = 57 mg/dL 0-99 30088-8) Comment: (test code = 25520-2) [facility] Description: Lipid [id number] 05:06:00 Test Item Value Reference Range Interpretation Comments Cholesterol, Total (test code = 131 mg/dL 297-175 7339-3) Triglycerides (test code = 2571-8) 187 mg/dL 0-149 H HDL Cholesterol (test code = 37 mg/dL >39 L 5-9) VLDL Cholesterol Jose Roberto (test code = 37 mg/dL 5-40 26692-7) LDL Cholesterol Calc (test code = 57 mg/dL 0-99 12754-5) Comment: (test code = 34145-0) [facility] Description: Comp. Metabolic Panel (14)2020-01-30 05:01:00 Test Item Value Reference Range Interpretation Comments Glucose (test code = 2345-7) 116 mg/dL 65-99 H BUN (test code = 3094-0) 10 mg/dL 6-24 Creatinine (test code = 0.90 mg/dL 0.76-1.27 2160-0) eGFR If NonAfricn Am (test 99 mL/min/1.73 >59 code = 19028-9) eGFR If Africn Am (test code 114 mL/min/1.73 >59 = 99136-1) BUN/Creatinine Ratio (test 11 05-01 code = 3097-3) Sodium (test code = 2951-2) 143 mmol/L 134-144 Potassium (test code = 4.3 mmol/L 3.5-5.2 2823-3) Chloride (test code = 2075-0) 104 mmol/L 96-106 Carbon Dioxide, Total (test 21 mmol/L 20-29 code = 2028-9) Calcium (test code = 40788-3) 9.3 mg/dL 8.7-10.2 Protein, Total (test code = 7.3 g/dL 6.0-8.5 2885-2) Albumin (test code = 1751-7) 4.7 g/dL 3.8-4.9 Globulin, Total (test code = 2.6 g/dL 1.5-4.5 60946-1) A/G Ratio (test code = 1.8 1.2-2.2 1759-0) Bilirubin, Total (test code = 0.3 mg/dL 0.0-1.2 1975-2) Alkaline Phosphatase (test 84 IU/L 39-117 code = 6768-6) AST (SGOT) (test code = 26 IU/L 0-40 1920-8) ALT (SGPT) (test code = 18 IU/L 0-44 1742-6) [facility] Description: Comp. Metabolic Panel (14)2020-01-30 05:01:00 Test Item Value Reference Range Interpretation Comments Glucose (test code = 2345-7) 116 mg/dL 65-99 H BUN (test code = 3094-0) 10 mg/dL 6-24 Creatinine (test code = 0.90 mg/dL 0.76-1.27 2160-0) eGFR If NonAfricn Am (test 99 mL/min/1.73 >59 code = 77658-7) eGFR If Africn Am (test code 114 mL/min/1.73 >59 = 51694-8) BUN/Creatinine Ratio (test 05-01 code = 3097-3) Sodium (test code = 2951-2) 143 mmol/L 134-144 Potassium (test code = 4.3 mmol/L 3.5-5.2 2823-3) Chloride (test code = 2075-0) 104 mmol/L 96-106 Carbon Dioxide, Total (test 21 mmol/L 20-29 code = 2028-9) Calcium (test code = 61531-6) 9.3 mg/dL 8.7-10.2 Protein, Total (test code = 7.3 g/dL 6.0-8.5 2885-2) Albumin (test code = 1751-7) 4.7 g/dL 3.8-4.9 Globulin, Total (test code = 2.6 g/dL 1.5-4.5 41097-7) A/G Ratio (test code = 1.8 1.2-2.2 1759-0) Bilirubin, Total (test code = 0.3 mg/dL 0.0-1.2 1975-2) Alkaline Phosphatase (test 84 IU/L 39-117 code = 6768-6) AST (SGOT) (test code = 26 IU/L 0-40 1920-8) ALT (SGPT) (test code = 18 IU/L 0-44 1742-6) [facility] Description: Comp. Metabolic Panel (14)2020-01-30 05:01:00 Test Item Value Reference Range Interpretation Comments Glucose (test code = 2345-7) 116 mg/dL 65-99 H BUN (test code = 3094-0) 10 mg/dL 6-24 Creatinine (test code = 0.90 mg/dL 0.76-1.27 2160-0) eGFR If NonAfricn Am (test 99 mL/min/1.73 >59 code = 86640-9) eGFR If Africn Am (test code 114 mL/min/1.73 >59 = 32124-0) BUN/Creatinine Ratio (test 05-01 code = 3097-3) Sodium (test code = 2951-2) 143 mmol/L 134-144 Potassium (test code = 4.3 mmol/L 3.5-5.2 2823-3) Chloride (test code = 2075-0) 104 mmol/L 96-106 Carbon Dioxide, Total (test 21 mmol/L 20-29 code = 8-9) Calcium (test code = 37451-8) 9.3 mg/dL 8.7-10.2 Protein, Total (test code = 7.3 g/dL 6.0-8.5 2885-2) Albumin (test code = 1751-7) 4.7 g/dL 3.8-4.9 Globulin, Total (test code = 2.6 g/dL 1.5-4.5 68935-0) A/G Ratio (test code = 1.8 1.2-2.2 1759-0) Bilirubin, Total (test code = 0.3 mg/dL 0.0-1.2 1975-2) Alkaline Phosphatase (test 84 IU/L 39-117 code = 6768-6) AST (SGOT) (test code = 26 IU/L 0-40 1920-8) ALT (SGPT) (test code = 18 IU/L 0-44 1742-6) [facility] Description: Comp. Metabolic Panel (14)2020-01-30 05:01:00 Test Item Value Reference Range Interpretation Comments Glucose (test code = 2345-7) 116 mg/dL 65-99 H BUN (test code = 3094-0) 10 mg/dL 6-24 Creatinine (test code = 0.90 mg/dL 0.76-1.27 2160-0) eGFR If NonAfricn Am (test 99 mL/min/1.73 >59 code = 25386-4) eGFR If Africn Am (test code 114 mL/min/1.73 >59 = 84177-6) BUN/Creatinine Ratio (test 05-01 code = 3097-3) Sodium (test code = 2951-2) 143 mmol/L 134-144 Potassium (test code = 4.3 mmol/L 3.5-5.2 2823-3) Chloride (test code = 2075-0) 104 mmol/L 96-106 Carbon Dioxide, Total (test 21 mmol/L - code = 2027-9) Calcium (test code = 85614-0) 9.3 mg/dL 8.7-10.2 Protein, Total (test code = 7.3 g/dL 6.0-8.5 2885-2) Albumin (test code = 1751-7) 4.7 g/dL 3.8-4.9 Globulin, Total (test code = 2.6 g/dL 1.5-4.5 25200-9) A/G Ratio (test code = 1.8 1.2-2.2 1759-0) Bilirubin, Total (test code = 0.3 mg/dL 0.0-1.2 1975-2) Alkaline Phosphatase (test 84 IU/L 39-117 code = 6768-6) AST (SGOT) (test code = 26 IU/L 0-40 1920-8) ALT (SGPT) (test code = 18 IU/L 0-44 1742-6) [facility] Description: Comp. Metabolic Panel (14)2020-01-30 05:01:00 Test Item Value Reference Range Interpretation Comments Glucose (test code = 2345-7) 116 mg/dL 65-99 H BUN (test code = 3094-0) 10 mg/dL 6-24 Creatinine (test code = 0.90 mg/dL 0.76-1.27 2160-0) eGFR If NonAfricn Am (test 99 mL/min/1.73 >59 code = 53182-6) eGFR If Africn Am (test code 114 mL/min/1.73 >59 = 94428-9) BUN/Creatinine Ratio (test 05-01 code = 3097-3) Sodium (test code = 2951-2) 143 mmol/L 134-144 Potassium (test code = 4.3 mmol/L 3.5-5.2 2823-3) Chloride (test code = 2075-0) 104 mmol/L 96-106 Carbon Dioxide, Total (test 21 mmol/L 29 code = 2027-9) Calcium (test code = 26252-6) 9.3 mg/dL 8.7-10.2 Protein, Total (test code = 7.3 g/dL 6.0-8.5 2885-2) Albumin (test code = 1751-7) 4.7 g/dL 3.8-4.9 Globulin, Total (test code = 2.6 g/dL 1.5-4.5 47719-2) A/G Ratio (test code = 1.8 1.2-2.2 1759-0) Bilirubin, Total (test code = 0.3 mg/dL 0.0-1.2 1975-2) Alkaline Phosphatase (test 84 IU/L 39-117 code = 6768-6) AST (SGOT) (test code = 26 IU/L 0-40 1920-8) ALT (SGPT) (test code = 18 IU/L 0-44 1742-6) [facility] Description: Comp. Metabolic Panel (14)2020-01-30 05:01:00 Test Item Value Reference Range Interpretation Comments Glucose (test code = 2345-7) 116 mg/dL 65-99 H BUN (test code = 3094-0) 10 mg/dL 6-24 Creatinine (test code = 0.90 mg/dL 0.76-1.27 2160-0) eGFR If NonAfricn Am (test 99 mL/min/1.73 >59 code = 51463-5) eGFR If Africn Am (test code 114 mL/min/1.73 >59 = 83292-8) BUN/Creatinine Ratio (test 11 05-01 code = 3097-3) Sodium (test code = 2951-2) 143 mmol/L 134-144 Potassium (test code = 4.3 mmol/L 3.5-5.2 2823-3) Chloride (test code = 2075-0) 104 mmol/L 96-106 Carbon Dioxide, Total (test 21 mmol/L 20-29 code = 8-9) Calcium (test code = 25650-0) 9.3 mg/dL 8.7-10.2 Protein, Total (test code = 7.3 g/dL 6.0-8.5 2885-2) Albumin (test code = 1751-7) 4.7 g/dL 3.8-4.9 Globulin, Total (test code = 2.6 g/dL 1.5-4.5 38640-9) A/G Ratio (test code = 1.8 1.2-2.2 1759-0) Bilirubin, Total (test code = 0.3 mg/dL 0.0-1.2 1974-09) Alkaline Phosphatase (test 84 IU/L 39-117 code = 6768-6) AST (SGOT) (test code = 26 IU/L 0-40 1920-8) ALT (SGPT) (test code = 18 IU/L 0-44 1742-6) [facility] Description: Comp. Metabolic Panel (14)2020-01-30 05:01:00 Test Item Value Reference Range Interpretation Comments Glucose (test code = 2345-7) 116 mg/dL 65-99 H BUN (test code = 3094-0) 10 mg/dL 6-24 Creatinine (test code = 0.90 mg/dL 0.76-1.27 2160-0) eGFR If NonAfricn Am (test 99 mL/min/1.73 >59 code = 58831-3) eGFR If Africn Am (test code 114 mL/min/1.73 >59 = 61832-3) BUN/Creatinine Ratio (test 11 05-01 code = 3097-3) Sodium (test code = 2951-2) 143 mmol/L 134-144 Potassium (test code = 4.3 mmol/L 3.5-5.2 2823-3) Chloride (test code = 2075-0) 104 mmol/L 96-106 Carbon Dioxide, Total (test 21 mmol/L 20-29 code = 2028-9) Calcium (test code = 49464-9) 9.3 mg/dL 8.7-10.2 Protein, Total (test code = 7.3 g/dL 6.0-8.5 2885-2) Albumin (test code = 1751-7) 4.7 g/dL 3.8-4.9 Globulin, Total (test code = 2.6 g/dL 1.5-4.5 35143-4) A/G Ratio (test code = 1.8 1.2-2.2 1758-0) Bilirubin, Total (test code = 0.3 mg/dL 0.0-1.2 1974-09) Alkaline Phosphatase (test 84 IU/L 39-117 code = 6768-6) AST (SGOT) (test code = 26 IU/L 0-40 1920-8) ALT (SGPT) (test code = 18 IU/L 0-44 1742-6) [facility] Description: Comp. Metabolic Panel (14)2020-01-30 05:01:00 Test Item Value Reference Range Interpretation Comments Glucose (test code = 2345-7) 116 mg/dL 65-99 H BUN (test code = 3094-0) 10 mg/dL 6-24 Creatinine (test code = 0.90 mg/dL 0.76-1.27 2160-0) eGFR If NonAfricn Am (test 99 mL/min/1.73 >59 code = 64332-7) eGFR If Africn Am (test code 114 mL/min/1.73 >59 = 16899-9) BUN/Creatinine Ratio (test 11 05-01 code = 3097-3) Sodium (test code = 2951-2) 143 mmol/L 134-144 Potassium (test code = 4.3 mmol/L 3.5-5.2 2823-3) Chloride (test code = 2075-0) 104 mmol/L 96-106 Carbon Dioxide, Total (test 21 mmol/L 20-29 code = 8-9) Calcium (test code = 98530-1) 9.3 mg/dL 8.7-10.2 Protein, Total (test code = 7.3 g/dL 6.0-8.5 2885-2) Albumin (test code = 1751-7) 4.7 g/dL 3.8-4.9 Globulin, Total (test code = 2.6 g/dL 1.5-4.5 97111-1) A/G Ratio (test code = 1.8 1.2-2.2 1759-0) Bilirubin, Total (test code = 0.3 mg/dL 0.0-1.2 1975-2) Alkaline Phosphatase (test 84 IU/L 39-117 code = 6768-6) AST (SGOT) (test code = 26 IU/L 0-40 1920-8) ALT (SGPT) (test code = 18 IU/L 0-44 1742-6) [facility] Description: Comp. Metabolic Panel (14)2020-01-30 05:01:00 Test Item Value Reference Range Interpretation Comments Glucose (test code = 2345-7) 116 mg/dL 65-99 H BUN (test code = 3094-0) 10 mg/dL 6-24 Creatinine (test code = 0.90 mg/dL 0.76-1.27 2160-0) eGFR If NonAfricn Am (test 99 mL/min/1.73 >59 code = 44509-4) eGFR If Africn Am (test code 114 mL/min/1.73 >59 = 05081-1) BUN/Creatinine Ratio (test 11 05-01 code = 3097-3) Sodium (test code = 2951-2) 143 mmol/L 134-144 Potassium (test code = 4.3 mmol/L 3.5-5.2 2823-3) Chloride (test code = 2075-0) 104 mmol/L 96-106 Carbon Dioxide, Total (test 21 mmol/L 20-29 code = 8-9) Calcium (test code = 27791-6) 9.3 mg/dL 8.7-10.2 Protein, Total (test code = 7.3 g/dL 6.0-8.5 2885-2) Albumin (test code = 1751-7) 4.7 g/dL 3.8-4.9 Globulin, Total (test code = 2.6 g/dL 1.5-4.5 50959-5) A/G Ratio (test code = 1.8 1.2-2.2 1759-0) Bilirubin, Total (test code = 0.3 mg/dL 0.0-1.2 1975-2) Alkaline Phosphatase (test 84 IU/L 39-117 code = 6768-6) AST (SGOT) (test code = 26 IU/L 0-40 1920-8) ALT (SGPT) (test code = 18 IU/L 0-44 1742-6) [facility] Description: Comp. Metabolic Panel (2020-01-30 05:01:00 Test Item Value Reference Range Interpretation Comments Glucose (test code = 2345-7) 116 mg/dL 65-99 H BUN (test code = 3094-0) 10 mg/dL 6-24 Creatinine (test code = 0.90 mg/dL 0.76-1.27 2160-0) eGFR If NonAfricn Am (test 99 mL/min/1.73 >59 code = 04079-8) eGFR If Africn Am (test code 114 mL/min/1.73 >59 = 53690-8) BUN/Creatinine Ratio (test 05-01 code = 3097-3) Sodium (test code = 2951-2) 143 mmol/L 134-144 Potassium (test code = 4.3 mmol/L 3.5-5.2 2823-3) Chloride (test code = 2075-0) 104 mmol/L 96-106 Carbon Dioxide, Total (test 21 mmol/L 20-29 code = 2028-9) Calcium (test code = 63111-0) 9.3 mg/dL 8.7-10.2 Protein, Total (test code = 7.3 g/dL 6.0-8.5 2885-2) Albumin (test code = 1751-7) 4.7 g/dL 3.8-4.9 Globulin, Total (test code = 2.6 g/dL 1.5-4.5 80611-8) A/G Ratio (test code = 1.8 1.2-2.2 1759-0) Bilirubin, Total (test code = 0.3 mg/dL 0.0-1.2 1975-2) Alkaline Phosphatase (test 84 IU/L 39-117 code = 6768-6) AST (SGOT) (test code = 26 IU/L 0-40 1920-8) ALT (SGPT) (test code = 18 IU/L 0-44 1742-6) [facility] Description: Comp. Metabolic Panel (2020-01-30 05:01:00 Test Item Value Reference Range Interpretation Comments Glucose (test code = 2345-7) 116 mg/dL 65-99 H BUN (test code = 3094-0) 10 mg/dL 6-24 Creatinine (test code = 0.90 mg/dL 0.76-1.27 2160-0) eGFR If NonAfricn Am (test 99 mL/min/1.73 >59 code = 96996-4) eGFR If Africn Am (test code 114 mL/min/1.73 >59 = 32259-2) BUN/Creatinine Ratio (test 05-01 code = 3097-3) Sodium (test code = 2951-2) 143 mmol/L 134-144 Potassium (test code = 4.3 mmol/L 3.5-5.2 2823-3) Chloride (test code = 2075-0) 104 mmol/L 96-106 Carbon Dioxide, Total (test 21 mmol/L code = 2027-) Calcium (test code = 18855-3) 9.3 mg/dL 8.7-10.2 Protein, Total (test code = 7.3 g/dL 6.0-8.5 2885-2) Albumin (test code = 1751-7) 4.7 g/dL 3.8-4.9 Globulin, Total (test code = 2.6 g/dL 1.5-4.5 11682-9) A/G Ratio (test code = 1.8 1.2-2.2 1759-0) Bilirubin, Total (test code = 0.3 mg/dL 0.0-1.2 1975-2) Alkaline Phosphatase (test 84 IU/L 39-117 code = 6768-6) AST (SGOT) (test code = 26 IU/L 0-40 1920-8) ALT (SGPT) (test code = 18 IU/L 0-44 1742-6) [facility] Description: Comp. Metabolic Panel (2020-01-30 05:01:00 Test Item Value Reference Range Interpretation Comments Glucose (test code = 2345-7) 116 mg/dL 65-99 H BUN (test code = 3094-0) 10 mg/dL 6-24 Creatinine (test code = 0.90 mg/dL 0.76-1.27 2160-0) eGFR If NonAfricn Am (test 99 mL/min/1.73 >59 code = 68122-2) eGFR If Africn Am (test code 114 mL/min/1.73 >59 = 12048-2) BUN/Creatinine Ratio (test 05-01 code = 3097-3) Sodium (test code = 2951-2) 143 mmol/L 134-144 Potassium (test code = 4.3 mmol/L 3.5-5.2 2823-3) Chloride (test code = 2075-0) 104 mmol/L 96-106 Carbon Dioxide, Total (test 21 mmol/L code = 2027-) Calcium (test code = 66647-4) 9.3 mg/dL 8.7-10.2 Protein, Total (test code = 7.3 g/dL 6.0-8.5 2885-2) Albumin (test code = 1751-7) 4.7 g/dL 3.8-4.9 Globulin, Total (test code = 2.6 g/dL 1.5-4.5 17214-7) A/G Ratio (test code = 1.8 1.2-2.2 1759-0) Bilirubin, Total (test code = 0.3 mg/dL 0.0-1.2 1975-2) Alkaline Phosphatase (test 84 IU/L 39-117 code = 6768-6) AST (SGOT) (test code = 26 IU/L 0-40 1920-8) ALT (SGPT) (test code = 18 IU/L 0-44 1742-6) [facility] Description: Comp. Metabolic Panel (14)2020-01-30 05:01:00 Test Item Value Reference Range Interpretation Comments Glucose (test code = 2345-7) 116 mg/dL 65-99 H BUN (test code = 3094-0) 10 mg/dL 6-24 Creatinine (test code = 0.90 mg/dL 0.76-1.27 2160-0) eGFR If NonAfricn Am (test 99 mL/min/1.73 >59 code = 20009-0) eGFR If Africn Am (test code 114 mL/min/1.73 >59 = 67725-2) BUN/Creatinine Ratio (test 11 05-01 code = 3097-3) Sodium (test code = 2951-2) 143 mmol/L 134-144 Potassium (test code = 4.3 mmol/L 3.5-5.2 2823-3) Chloride (test code = 2075-0) 104 mmol/L 96-106 Carbon Dioxide, Total (test 21 mmol/L code = 2027-9) Calcium (test code = 22224-2) 9.3 mg/dL 8.7-10.2 Protein, Total (test code = 7.3 g/dL 6.0-8.5 2885-2) Albumin (test code = 1751-7) 4.7 g/dL 3.8-4.9 Globulin, Total (test code = 2.6 g/dL 1.5-4.5 73269-8) A/G Ratio (test code = 1.8 1.2-2.2 1759-0) Bilirubin, Total (test code = 0.3 mg/dL 0.0-1.2 1975-2) Alkaline Phosphatase (test 84 IU/L 39-117 code = 6768-6) AST (SGOT) (test code = 26 IU/L 0-40 1920-8) ALT (SGPT) (test code = 18 IU/L 0-44 1742-6) [facility] Description: Comp. Metabolic Panel (2020-01-30 05:01:00 Test Item Value Reference Range Interpretation Comments Glucose (test code = 2345-7) 116 mg/dL 65-99 H BUN (test code = 3094-0) 10 mg/dL 6-24 Creatinine (test code = 0.90 mg/dL 0.76-1.27 2160-0) eGFR If NonAfricn Am (test 99 mL/min/1.73 >59 code = 39579-0) eGFR If Africn Am (test code 114 mL/min/1.73 >59 = 51138-8) BUN/Creatinine Ratio (test 11 05-01 code = 3097-3) Sodium (test code = 2951-2) 143 mmol/L 134-144 Potassium (test code = 4.3 mmol/L 3.5-5.2 2823-3) Chloride (test code = 2075-0) 104 mmol/L 96-106 Carbon Dioxide, Total (test 21 mmol/L 20-29 code = 8-9) Calcium (test code = 99984-5) 9.3 mg/dL 8.7-10.2 Protein, Total (test code = 7.3 g/dL 6.0-8.5 2885-2) Albumin (test code = 1751-7) 4.7 g/dL 3.8-4.9 Globulin, Total (test code = 2.6 g/dL 1.5-4.5 11454-5) A/G Ratio (test code = 1.8 1.2-2.2 1759-0) Bilirubin, Total (test code = 0.3 mg/dL 0.0-1.2 1974-09) Alkaline Phosphatase (test 84 IU/L 39-117 code = 6768-6) AST (SGOT) (test code = 26 IU/L 0-40 1920-8) ALT (SGPT) (test code = 18 IU/L 0-44 1742-6) [facility] Description: Comp. Metabolic Panel (2020-01-30 05:01:00 Test Item Value Reference Range Interpretation Comments Glucose (test code = 2345-7) 116 mg/dL 65-99 H BUN (test code = 3094-0) 10 mg/dL 6-24 Creatinine (test code = 0.90 mg/dL 0.76-1.27 2160-0) eGFR If NonAfricn Am (test 99 mL/min/1.73 >59 code = 97150-3) eGFR If Africn Am (test code 114 mL/min/1.73 >59 = 05834-5) BUN/Creatinine Ratio (test 11 05-01 code = 3097-3) Sodium (test code = 2951-2) 143 mmol/L 134-144 Potassium (test code = 4.3 mmol/L 3.5-5.2 2823-3) Chloride (test code = 2075-0) 104 mmol/L 96-106 Carbon Dioxide, Total (test 21 mmol/L 20-29 code = 8-9) Calcium (test code = 98154-2) 9.3 mg/dL 8.7-10.2 Protein, Total (test code = 7.3 g/dL 6.0-8.5 2885-2) Albumin (test code = 1751-7) 4.7 g/dL 3.8-4.9 Globulin, Total (test code = 2.6 g/dL 1.5-4.5 90530-6) A/G Ratio (test code = 1.8 1.2-2.2 1759-0) Bilirubin, Total (test code = 0.3 mg/dL 0.0-1.2 1974-09) Alkaline Phosphatase (test 84 IU/L 39-117 code = 6768-6) AST (SGOT) (test code = 26 IU/L 0-40 0-8) ALT (SGPT) (test code = 18 IU/L 0-44 1742-6) [facility] (14)2020-01-30 05:01:00 Test Item Value Reference Range Interpretation Comments Glucose (test code = 2345-7) 116 mg/dL 65-99 H BUN (test code = 3094-0) 10 mg/dL 6-24 Creatinine (test code = 0.90 mg/dL 0.76-1.27 2160-0) eGFR If NonAfricn Am (test 99 mL/min/1.73 >59 code = 89279-8) eGFR If Africn Am (test code 114 mL/min/1.73 >59 = 45799-0) BUN/Creatinine Ratio (test 11 05-01 code = 3097-3) Sodium (test code = 2951-2) 143 mmol/L 134-144 Potassium (test code = 4.3 mmol/L 3.5-5.2 2823-3) Chloride (test code = 2075-0) 104 mmol/L 96-106 Carbon Dioxide, Total (test 21 mmol/L 20-29 code = 8-9) Calcium (test code = 42579-3) 9.3 mg/dL 8.7-10.2 Protein, Total (test code = 7.3 g/dL 6.0-8.5 2885-2) Albumin (test code = 1751-7) 4.7 g/dL 3.8-4.9 Globulin, Total (test code = 2.6 g/dL 1.5-4.5 37457-2) A/G Ratio (test code = 1.8 1.2-2.2 1759-0) Bilirubin, Total (test code = 0.3 mg/dL 0.0-1.2 1975-2) Alkaline Phosphatase (test 84 IU/L 39-117 code = 6768-6) AST (SGOT) (test code = 26 IU/L 0-40 1920-8) ALT (SGPT) (test code = 18 IU/L 0-44 1742-6) [facility] Description: Comp. Metabolic Panel (14)2020-01-30 05:01:00 Test Item Value Reference Range Interpretation Comments Glucose (test code = 2345-7) 116 mg/dL 65-99 H BUN (test code = 3094-0) 10 mg/dL 6-24 Creatinine (test code = 0.90 mg/dL 0.76-1.27 2160-0) eGFR If NonAfricn Am (test 99 mL/min/1.73 >59 code = 69797-6) eGFR If Africn Am (test code 114 mL/min/1.73 >59 = 12571-7) BUN/Creatinine Ratio (test 11 - code = 3097-3) Sodium (test code = 2951-2) 143 mmol/L 134-144 Potassium (test code = 4.3 mmol/L 3.5-5.2 2823-3) Chloride (test code = 2075-0) 104 mmol/L 96-106 Carbon Dioxide, Total (test 21 mmol/L 20-29 code = 2028-9) Calcium (test code = 14338-0) 9.3 mg/dL 8.7-10.2 Protein, Total (test code = 7.3 g/dL 6.0-8.5 2885-2) Albumin (test code = 1751-7) 4.7 g/dL 3.8-4.9 Globulin, Total (test code = 2.6 g/dL 1.5-4.5 12125-2) A/G Ratio (test code = 1.8 1.2-2.2 1759-0) Bilirubin, Total (test code = 0.3 mg/dL 0.0-1.2 1975-2) Alkaline Phosphatase (test 84 IU/L 39-117 code = 6768-6) AST (SGOT) (test code = 26 IU/L 0-40 1920-8) ALT (SGPT) (test code = 18 IU/L 0-44 1742-6) [facility] Description: Comp. Metabolic Panel (142020-01-30 05:01:00 Test Item Value Reference Range Interpretation Comments Glucose (test code = 2345-7) 116 mg/dL 65-99 H BUN (test code = 3094-0) 10 mg/dL 6-24 Creatinine (test code = 0.90 mg/dL 0.76-1.27 2160-0) eGFR If NonAfricn Am (test 99 mL/min/1.73 >59 code = 98732-7) eGFR If Africn Am (test code 114 mL/min/1.73 >59 = 71852-8) BUN/Creatinine Ratio (test 05-01 code = 3097-3) Sodium (test code = 2951-2) 143 mmol/L 134-144 Potassium (test code = 4.3 mmol/L 3.5-5.2 2823-3) Chloride (test code = 2075-0) 104 mmol/L 96-106 Carbon Dioxide, Total (test 21 mmol/L 20-29 code = 8-9) Calcium (test code = 68681-9) 9.3 mg/dL 8.7-10.2 Protein, Total (test code = 7.3 g/dL 6.0-8.5 2885-2) Albumin (test code = 1751-7) 4.7 g/dL 3.8-4.9 Globulin, Total (test code = 2.6 g/dL 1.5-4.5 18977-2) A/G Ratio (test code = 1.8 1.2-2.2 1759-0) Bilirubin, Total (test code = 0.3 mg/dL 0.0-1.2 1975-2) Alkaline Phosphatase (test 84 IU/L 39-117 code = 6768-6) AST (SGOT) (test code = 26 IU/L 0-40 1920-8) ALT (SGPT) (test code = 18 IU/L 0-44 1742-6) [facility] Description: Comp. Metabolic Panel (14)2020-01-30 05:01:00 Test Item Value Reference Range Interpretation Comments Glucose (test code = 2345-7) 116 mg/dL 65-99 H BUN (test code = 3094-0) 10 mg/dL 6-24 Creatinine (test code = 0.90 mg/dL 0.76-1.27 2160-0) eGFR If NonAfricn Am (test 99 mL/min/1.73 >59 code = 28863-6) eGFR If Africn Am (test code 114 mL/min/1.73 >59 = 99058-3) BUN/Creatinine Ratio (test 05-01 code = 3097-3) Sodium (test code = 2951-2) 143 mmol/L 134-144 Potassium (test code = 4.3 mmol/L 3.5-5.2 2823-3) Chloride (test code = 2075-0) 104 mmol/L 96-106 Carbon Dioxide, Total (test 21 mmol/L - code = 2027-) Calcium (test code = 33547-0) 9.3 mg/dL 8.7-10.2 Protein, Total (test code = 7.3 g/dL 6.0-8.5 2885-2) Albumin (test code = 1751-7) 4.7 g/dL 3.8-4.9 Globulin, Total (test code = 2.6 g/dL 1.5-4.5 90956-9) A/G Ratio (test code = 1.8 1.2-2.2 1759-0) Bilirubin, Total (test code = 0.3 mg/dL 0.0-1.2 1975-2) Alkaline Phosphatase (test 84 IU/L 39-117 code = 6768-6) AST (SGOT) (test code = 26 IU/L 0-40 1920-8) ALT (SGPT) (test code = 18 IU/L 0-44 1742-6) [facility] Description: Comp. Metabolic Panel (14)2020-01-30 05:01:00 Test Item Value Reference Range Interpretation Comments Glucose (test code = 2345-7) 116 mg/dL 65-99 H BUN (test code = 3094-0) 10 mg/dL 6-24 Creatinine (test code = 0.90 mg/dL 0.76-1.27 2160-0) eGFR If NonAfricn Am (test 99 mL/min/1.73 >59 code = 62717-6) eGFR If Africn Am (test code 114 mL/min/1.73 >59 = 71367-9) BUN/Creatinine Ratio (test 11 05-01 code = 3097-3) Sodium (test code = 2951-2) 143 mmol/L 134-144 Potassium (test code = 4.3 mmol/L 3.5-5.2 2823-3) Chloride (test code = 2075-0) 104 mmol/L 96-106 Carbon Dioxide, Total (test 21 mmol/L - code = 2027-9) Calcium (test code = 32279-1) 9.3 mg/dL 8.7-10.2 Protein, Total (test code = 7.3 g/dL 6.0-8.5 2885-2) Albumin (test code = 1751-7) 4.7 g/dL 3.8-4.9 Globulin, Total (test code = 2.6 g/dL 1.5-4.5 46662-4) A/G Ratio (test code = 1.8 1.2-2.2 1759-0) Bilirubin, Total (test code = 0.3 mg/dL 0.0-1.2 1975-2) Alkaline Phosphatase (test 84 IU/L 39-117 code = 6768-6) AST (SGOT) (test code = 26 IU/L 0-40 1920-8) ALT (SGPT) (test code = 18 IU/L 0-44 1742-6) [facility] Description: Comp. Metabolic Panel (14)2020-01-30 05:01:00 Test Item Value Reference Range Interpretation Comments Glucose (test code = 2345-7) 116 mg/dL 65-99 H BUN (test code = 3094-0) 10 mg/dL 6-24 Creatinine (test code = 0.90 mg/dL 0.76-1.27 2160-0) eGFR If NonAfricn Am (test 99 mL/min/1.73 >59 code = 14851-7) eGFR If Africn Am (test code 114 mL/min/1.73 >59 = 91505-3) BUN/Creatinine Ratio (test 11 05-01 code = 3097-3) Sodium (test code = 2951-2) 143 mmol/L 134-144 Potassium (test code = 4.3 mmol/L 3.5-5.2 2823-3) Chloride (test code = 2075-0) 104 mmol/L 96-106 Carbon Dioxide, Total (test 21 mmol/L 20-29 code = 8-9) Calcium (test code = 84879-6) 9.3 mg/dL 8.7-10.2 Protein, Total (test code = 7.3 g/dL 6.0-8.5 2885-2) Albumin (test code = 1751-7) 4.7 g/dL 3.8-4.9 Globulin, Total (test code = 2.6 g/dL 1.5-4.5 34546-7) A/G Ratio (test code = 1.8 1.2-2.2 1759-0) Bilirubin, Total (test code = 0.3 mg/dL 0.0-1.2 1975-2) Alkaline Phosphatase (test 84 IU/L 39-117 code = 6768-6) AST (SGOT) (test code = 26 IU/L 0-40 1920-8) ALT (SGPT) (test code = 18 IU/L 0-44 1742-6) [facility] Description: Comp. Metabolic Panel (14)2020-01-30 05:01:00 Test Item Value Reference Range Interpretation Comments Glucose (test code = 2345-7) 116 mg/dL 65-99 H BUN (test code = 3094-0) 10 mg/dL 6-24 Creatinine (test code = 0.90 mg/dL 0.76-1.27 2160-0) eGFR If NonAfricn Am (test 99 mL/min/1.73 >59 code = 15586-8) eGFR If Africn Am (test code 114 mL/min/1.73 >59 = 55769-0) BUN/Creatinine Ratio (test 11 - code = 3097-3) Sodium (test code = 2951-2) 143 mmol/L 134-144 Potassium (test code = 4.3 mmol/L 3.5-5.2 2823-3) Chloride (test code = 2075-0) 104 mmol/L 96-106 Carbon Dioxide, Total (test 21 mmol/L 20-29 code = 8-9) Calcium (test code = 25256-3) 9.3 mg/dL 8.7-10.2 Protein, Total (test code = 7.3 g/dL 6.0-8.5 2885-2) Albumin (test code = 1751-7) 4.7 g/dL 3.8-4.9 Globulin, Total (test code = 2.6 g/dL 1.5-4.5 50570-4) A/G Ratio (test code = 1.8 1.2-2.2 1759-0) Bilirubin, Total (test code = 0.3 mg/dL 0.0-1.2 1974-09) Alkaline Phosphatase (test 84 IU/L 39-117 code = 6768-6) AST (SGOT) (test code = 26 IU/L 0-40 1920-8) ALT (SGPT) (test code = 18 IU/L 0-44 1742-6) [facility] Description: Folate [Mass/volume] in Serum or [id number] 04:54:00 Test Item Value Reference Range Interpretation Comments Folate (Folic 12.0 ng/mL >3.0 A serum folate Acid), Serum (test concentra tion of less code = 2284-8) than 3.1 ng/m L isconsidered to represent clinical deficiency.< br/>
P erformed by:
[facility] ()

[facility]: Cobalamin (Vitamin B12) [Mass/volume] in Serum or [id number] 04:54:00 Test Item Value Reference Range Interpretation Comments Vitamin B12 (test code = 2132-9) 1396 pg/mL 232-1245 H [facility]: Folate [Mass/volume] in Serum or [id number] 04:54:00 Test Item Value Reference Range Interpretation Comments Folate (Folic 12.0 ng/mL >3.0 A serum folate Acid), Serum (test concentra tion of less code = 2284-8) than 3.1 ng/m L isconsidered to represent clinical deficiency.< br/>
P erformed by:
[facility] ()

[facility]: Cobalamin (Vitamin B12) [Mass/volume] in Serum or [id number] 04:54:00 Test Item Value Reference Range Interpretation Comments Vitamin B12 (test code = 2132-9) 1396 pg/mL 232-1245 H [facility]: Folate [Mass/volume] in Serum or [id number] 04:54:00 Test Item Value Reference Range Interpretation Comments Folate (Folic 12.0 ng/mL >3.0 A serum folate Acid), Serum (test concentra tion of less code = 2284-8) than 3.1 ng/m L isconsidered to represent clinical deficiency.< br/>
P erformed by:
[facility] ()

[facility] Description: Cobalamin (Vitamin B12) [Mass/volume] in Serum or [id number] 04:54:00 Test Item Value Reference Range Interpretation Comments Vitamin B12 (test code = 2132-9) 1396 pg/mL 232-1245 H [facility] Description: Folate [Mass/volume] in Serum or [id number] 04:54:00 Test Item Value Reference Range Interpretation Comments Folate (Folic 12.0 ng/mL >3.0 A serum folate Acid), Serum (test concentra tion of less code = 2284-8) than 3.1 ng/m L isconsidered to represent clinical deficiency.< br/>
[facility]:
[facility]

[facility] Description: Cobalamin (Vitamin B12) [Mass/volume] in Serum or Caybpp9643-26-75 04:54:00 Test Item Value Reference Range Interpretation Comments Vitamin B12 (test code = 2132-9) 1396 pg/mL 232-1245 H [facility] Description: Folate [Mass/volume] in Serum or [id number] 04:54:00 Test Item Value Reference Range Interpretation Comments Folate (Folic 12.0 ng/mL >3.0 A serum folate Acid), Serum (test concentra tion of less code = 2284-8) than 3.1 ng/m L isconsidered to represent clinical deficiency.< br/>
P erformed by:
[facility] ()

[facility] Description: Cobalamin (Vitamin B12) [Mass/volume] in Serum or [id number] 04:54:00 Test Item Value Reference Range Interpretation Comments Vitamin B12 (test code = 2132-9) 1396 pg/mL 232-1245 H [facility] Description: Folate [Mass/volume] in Serum or [id number] 04:54:00 Test Item Value Reference Range Interpretation Comments Folate (Folic 12.0 ng/mL >3.0 A serum folate Acid), Serum (test concentra tion of less code = 2284-8) than 3.1 ng/m L isconsidered to represent clinical deficiency.< br/>
P erformed by:
[facility] ()

[facility] Description: Cobalamin (Vitamin B12) [Mass/volume] in Serum or Agtlxv1748-16-55 04:54:00 Test Item Value Reference Range Interpretation Comments Vitamin B12 (test code = 2132-9) 1396 pg/mL 232-1245 H [facility] Description: Folate [Mass/volume] in Serum or Rdhcaq7690-79-42 04:54:00 Test Item Value Reference Range Interpretation Comments Folate (Folic 12.0 ng/mL >3.0 A serum folate Acid), Serum (test concentra tion of less code = 2284-8) than 3.1 ng/m L isconsidered to represent clinical deficiency.< br/>
P erformed by:
[facility] ()

[facility] Description: Cobalamin (Vitamin B12) [Mass/volume] in Serum or Orwfqs6783-22-34 04:54:00 Test Item Value Reference Range Interpretation Comments Vitamin B12 (test code = 2132-9) 1396 pg/mL 232-1245 H [facility] Description: Folate [Mass/volume] in Serum or [id number] 04:54:00 Test Item Value Reference Range Interpretation Comments Folate (Folic 12.0 ng/mL >3.0 A serum folate Acid), Serum (test concentra tion of less code = 2284-8) than 3.1 ng/m L isconsidered to represent clinical deficiency.< br/>
P erformed by:
[facility] ()

[facility] Description: Cobalamin (Vitamin B12) [Mass/volume] in Serum or [id number] 04:54:00 Test Item Value Reference Range Interpretation Comments Vitamin B12 (test code = 2132-9) 1396 pg/mL 232-1245 H [facility] Description: Folate [Mass/volume] in Serum or Czapft1654-60-22 04:54:00 Test Item Value Reference Range Interpretation Comments Folate (Folic 12.0 ng/mL >3.0 A serum folate Acid), Serum (test concentra tion of less code = 2284-8) than 3.1 ng/m L isconsidered to represent clinical deficiency.Perf ormed by:Chet martinez ([place]) [facility] Description: Cobalamin (Vitamin B12) [Mass/volume] in Serum or Atdhsh0515-90-69 04:54:00 Test Item Value Reference Range Interpretation Comments Vitamin B12 (test code = 2132-9) 1396 pg/mL 232-1245 H [facility] Description: Folate [Mass/volume] in Serum or Zaclyt6338-49-96 04:54:00 Test Item Value Reference Range Interpretation Comments Folate (Folic 12.0 ng/mL >3.0 A serum folate Acid), Serum (test concentra tion of less code = 2284-8) than 3.1 ng/m L isconsidered to represent clinical deficiency.Perf ormed by:Chet martinez ([place]) [facility] Description: Cobalamin (Vitamin B12) [Mass/volume] in Serum or [id number] 04:54:00 Test Item Value Reference Range Interpretation Comments Vitamin B12 (test code = 2132-9) 1396 pg/mL 232-1245 H [facility] Description: Folate [Mass/volume] in Serum or Ihlzwk4874-93-22 04:54:00 Test Item Value Reference Range Interpretation Comments Folate (Folic 12.0 ng/mL >3.0 A serum folate Acid), Serum (test concentra tion of less code = 2284-8) than 3.1 ng/m L isconsidered to represent clinical deficiency.Perf ormed by:Chet martinez ([place]) [facility] Description: Cobalamin (Vitamin B12) [Mass/volume] in Serum or [id number] 04:54:00 Test Item Value Reference Range Interpretation Comments Vitamin B12 (test code = 2132-9) 1396 pg/mL 232-1245 H [facility] Description: Folate [Mass/volume] in Serum or Hjtqhs8296-43-42 04:54:00 Test Item Value Reference Range Interpretation Comments Folate (Folic 12.0 ng/mL >3.0 A serum folate Acid), Serum (test concentra tion of less code = 2284-8) than 3.1 ng/m L isconsidered to represent clinical deficiency.Perf ormed by:Chet martinez () [facility] Description: Cobalamin (Vitamin B12) [Mass/volume] in Serum or [id number] 04:54:00 Test Item Value Reference Range Interpretation Comments Vitamin B12 (test code = 2132-9) 1396 pg/mL 232-1245 H [facility] Description: Folate [Mass/volume] in Serum or Ibldbs3875-51-79 04:54:00 Test Item Value Reference Range Interpretation Comments Folate (Folic 12.0 ng/mL >3.0 A serum folate Acid), Serum (test concentra tion of less code = 2284-8) than 3.1 ng/m L isconsidered to represent clinical deficiency.< br/>
P erformed by:
Chet Montilla ()

[facility] Description: Folate [Mass/volume] in Serum or Pfppiu8820-30-87 04:54:00 Test Item Value Reference Range Interpretation Comments Folate (Folic 12.0 ng/mL >3.0 A serum folate Acid), Serum (test concentra tion of less code = 2284-8) than 3.1 ng/m L isconsidered to represent clinical deficiency.Perf ormed by:Chet martinez () [facility] Description: Cobalamin (Vitamin B12) [Mass/volume] in Serum or [id number] 04:54:00 Test Item Value Reference Range Interpretation Comments Vitamin B12 (test code = 2132-9) 1396 pg/mL 232-1245 H [facility] Description: Cobalamin (Vitamin B12) [Mass/volume] in Serum or Lyqluu2115-27-83 04:54:00 Test Item Value Reference Range Interpretation Comments Vitamin B12 (test code = 2132-9) 1396 pg/mL 232-1245 H [facility] Description: Folate [Mass/volume] in Serum or Jsdaat3524-24-18 04:54:00 Test Item Value Reference Range Interpretation Comments Folate (Folic 12.0 ng/mL >3.0 A serum folate Acid), Serum (test concentra tion of less code = 2284-8) than 3.1 ng/m L isconsidered to represent clinical deficiency.Perf ormed by:Chet martinez ([place]) [facility] Description: Cobalamin (Vitamin B12) [Mass/volume] in Serum or [id number] 04:54:00 Test Item Value Reference Range Interpretation Comments Vitamin B12 (test code = 2132-9) 1396 pg/mL 232-1245 H [facility] Description: Folate [Mass/volume] in Serum or Sfnrve5961-76-28 04:54:00 Test Item Value Reference Range Interpretation Comments Folate (Folic 12.0 ng/mL >3.0 A serum folate Acid), Serum (test concentra tion of less code = 2284-8) than 3.1 ng/m L isconsidered to represent clinical deficiency.Perf ormed by:Chet martinez ([place]) [facility] Description: Cobalamin (Vitamin B12) [Mass/volume] in Serum or Emyrrb3840-51-62 04:54:00 Test Item Value Reference Range Interpretation Comments Vitamin B12 (test code = 2132-9) 1396 pg/mL 232-1245 H [facility] Description: Folate [Mass/volume] in Serum or Pusptd2888-23-99 04:54:00 Test Item Value Reference Range Interpretation Comments Folate (Folic 12.0 ng/mL >3.0 A serum folate Acid), Serum (test concentra tion of less code = 2284-8) than 3.1 ng/m L isconsidered to represent clinical deficiency.Perf ormed by:Chet martinez ([place]) [facility] Description: Cobalamin (Vitamin B12) [Mass/volume] in Serum or Xmzsmm7706-20-28 04:54:00 Test Item Value Reference Range Interpretation Comments Vitamin B12 (test code = 2132-9) 1396 pg/mL 232-1245 H [facility] Description: Folate [Mass/volume] in Serum or [id number] 04:54:00 Test Item Value Reference Range Interpretation Comments Folate (Folic 12.0 ng/mL >3.0 A serum folate Acid), Serum (test concentra tion of less code = 2284-8) than 3.1 ng/m L isconsidered to represent clinical deficiency.Perf ormed by:Chet martinez () [facility] Description: Cobalamin (Vitamin B12) [Mass/volume] in Serum or Vrozzs1880-62-10 04:54:00 Test Item Value Reference Range Interpretation Comments Vitamin B12 (test code = 2132-9) 1396 pg/mL 232-1245 H [facility] Description: Folate [Mass/volume] in Serum or [id number] 04:54:00 Test Item Value Reference Range Interpretation Comments Folate (Folic 12.0 ng/mL >3.0 A serum folate Acid), Serum (test concentra tion of less code = 2284-8) than 3.1 ng/m L isconsidered to represent clinical deficiency.< br/>
P erformed by:
Chet Montilla ()

[facility] Description: Cobalamin (Vitamin B12) [Mass/volume] in Serum or Fehnax7129-85-79 04:54:00 Test Item Value Reference Range Interpretation Comments Vitamin B12 (test code = 2132-9) 1396 pg/mL 232-1245 H [facility] Description: Folate [Mass/volume] in Serum or Lkbvea2858-66-93 04:54:00 Test Item Value Reference Range Interpretation Comments Folate (Folic 12.0 ng/mL >3.0 A serum folate Acid), Serum (test concentra tion of less code = 2284-8) than 3.1 ng/m L isconsidered to represent clinical deficiency.< br/>
P erformed by:
Chet Montilla ()

[facility] Description: Cobalamin (Vitamin B12) [Mass/volume] in Serum or [id number] 04:54:00 Test Item Value Reference Range Interpretation Comments Vitamin B12 (test code = 2132-9) 1396 pg/mL 232-1245 H [facility] Description: Folate [Mass/volume] in Serum or Smphcz0445-61-35 04:54:00 Test Item Value Reference Range Interpretation Comments Folate (Folic 12.0 ng/mL >3.0 A serum folate Acid), Serum (test concentra tion of less code = 2284-8) than 3.1 ng/m L isconsidered to represent clinical deficiency.< br/>
P erformed by:
[facility] ([place])

[facility] Description: Cobalamin (Vitamin B12) [Mass/volume] in Serum or Yjfvlf4390-24-15 04:54:00 Test Item Value Reference Range Interpretation Comments Vitamin B12 (test code = 2132-9) 1396 pg/mL 232-1245 H [facility] Description: Folate [Mass/volume] in Serum or Bdtejc2649-81-29 04:54:00 Test Item Value Reference Range Interpretation Comments Folate (Folic 12.0 ng/mL >3.0 A serum folate Acid), Serum (test concentra tion of less code = 2284-8) than 3.1 ng/m L isconsidered to represent clinical deficiency.< br/>
P erformed by:
[facility] ([place])

[facility] Description: Cobalamin (Vitamin B12) [Mass/volume] in Serum or Zyasww5357-74-53 04:54:00 Test Item Value Reference Range Interpretation Comments Vitamin B12 (test code = 2132-9) 1396 pg/mL 232-1245 H [facility] Description: Thyrotropin [Units/volume] in Serum or Plasma by Detection limit <= 0.05 mIU/C9337-00-69 04:46:00 Test Item Value Reference Range Interpretation Comments TSH (test code = 44675-1) 1.590 uIU/mL 0.450-4.500 [facility] Description: Thyrotropin [Units/volume] in Serum or Plasma by Detection limit <= 0.05 mIU/[id number] 04:46:00 Test Item Value Reference Range Interpretation Comments TSH (test code = 96129-5) 1.590 uIU/mL 0.450-4.500 [facility] Description: Thyrotropin [Units/volume] in Serum or Plasma by Detection limit <= 0.05 mIU/F5165-90-60 04:46:00 Test Item Value Reference Range Interpretation Comments TSH (test code = 45656-8) 1.590 uIU/mL 0.450-4.500 [facility] Description: Thyrotropin [Units/volume] in Serum or Plasma by Detection limit <= 0.05 mIU/[id number] 04:46:00 Test Item Value Reference Range Interpretation Comments TSH (test code = 59989-4) 1.590 uIU/mL 0.450-4.500 [facility] Description: Thyrotropin [Units/volume] in Serum or Plasma by Detection limit <= 0.05 mIU/[id number] 04:46:00 Test Item Value Reference Range Interpretation Comments TSH (test code = 56787-6) 1.590 uIU/mL 0.450-4.500 [facility] Description: Thyrotropin [Units/volume] in Serum or Plasma by Detection limit <= 0.05 mIU/E8280-87-29 04:46:00 Test Item Value Reference Range Interpretation Comments TSH (test code = 46354-0) 1.590 uIU/mL 0.450-4.500 [facility] Description: Thyrotropin [Units/volume] in Serum or Plasma by Detection limit <= 0.05 mIU/E7765-71-02 04:46:00 Test Item Value Reference Range Interpretation Comments TSH (test code = 90657-7) 1.590 uIU/mL 0.450-4.500 [facility] Description: Thyrotropin [Units/volume] in Serum or Plasma by Detection limit <= 0.05 mIU/[id number] 04:46:00 Test Item Value Reference Range Interpretation Comments TSH (test code = 81701-1) 1.590 uIU/mL 0.450-4.500 [facility] Description: Thyrotropin [Units/volume] in Serum or Plasma by Detection limit <= 0.05 mIU/[id number] 04:46:00 Test Item Value Reference Range Interpretation Comments TSH (test code = 58938-6) 1.590 uIU/mL 0.450-4.500 [facility] Description: Thyrotropin [Units/volume] in Serum or Plasma by Detection limit <= 0.05 mIU/Y4874-87-05 04:46:00 Test Item Value Reference Range Interpretation Comments TSH (test code = 09616-2) 1.590 uIU/mL 0.450-4.500 [facility] Description: Thyrotropin [Units/volume] in Serum or Plasma by Detection limit <= 0.05 mIU/[id number] 04:46:00 Test Item Value Reference Range Interpretation Comments TSH (test code = 11321-1) 1.590 uIU/mL 0.450-4.500 [facility] Description: Thyrotropin [Units/volume] in Serum or Plasma by Detection limit <= 0.05 mIU/[id number] 04:46:00 Test Item Value Reference Range Interpretation Comments TSH (test code = 91888-1) 1.590 uIU/mL 0.450-4.500 [facility] Description: Thyrotropin [Units/volume] in Serum or Plasma by Detection limit <= 0.05 mIU/Y5842-76-28 04:46:00 Test Item Value Reference Range Interpretation Comments TSH (test code = 23333-0) 1.590 uIU/mL 0.450-4.500 [facility] Description: Thyrotropin [Units/volume] in Serum or Plasma by Detection limit <= 0.05 mIU/[id number] 04:46:00 Test Item Value Reference Range Interpretation Comments TSH (test code = 45619-1) 1.590 uIU/mL 0.450-4.500 [facility] Description: Thyrotropin [Units/volume] in Serum or Plasma by Detection limit <= 0.05 mIU/[id number] 04:46:00 Test Item Value Reference Range Interpretation Comments TSH (test code = 21816-0) 1.590 uIU/mL 0.450-4.500 [facility] Description: Thyrotropin [Units/volume] in Serum or Plasma by Detection limit <= 0.05 mIU/[id number] 04:46:00 Test Item Value Reference Range Interpretation Comments TSH (test code = 49667-6) 1.590 uIU/mL 0.450-4.500 [facility] Description: Thyrotropin [Units/volume] in Serum or Plasma by Detection limit <= 0.05 mIU/[id number] 04:46:00 Test Item Value Reference Range Interpretation Comments TSH (test code = 45818-4) 1.590 uIU/mL 0.450-4.500 [facility] Description: Thyrotropin [Units/volume] in Serum or Plasma by Detection limit <= 0.05 mIU/[id number] 04:46:00 Test Item Value Reference Range Interpretation Comments TSH (test code = 82003-8) 1.590 uIU/mL 0.450-4.500 [facility] Description: Thyrotropin [Units/volume] in Serum or Plasma by Detection limit <= 0.05 mIU/[id number] 04:46:00 Test Item Value Reference Range Interpretation Comments TSH (test code = 58764-2) 1.590 uIU/mL 0.450-4.500 [facility] Description: Thyrotropin [Units/volume] in Serum or Plasma by Detection limit <= 0.05 mIU/[id number] 04:46:00 Test Item Value Reference Range Interpretation Comments TSH (test code = 19911-0) 1.590 uIU/mL 0.450-4.500 [facility] Description: Thyrotropin [Units/volume] in Serum or Plasma by Detection limit <= 0.05 mIU/[id number] 04:46:00 Test Item Value Reference Range Interpretation Comments TSH (test code = 47815-0) 1.590 uIU/mL 0.450-4.500 [facility] Description: Thyrotropin [Units/volume] in Serum or Plasma by Detection limit <= 0.05 mIU/[id number] 04:46:00 Test Item Value Reference Range Interpretation Comments TSH (test code = 09167-0) 1.590 uIU/mL 0.450-4.500 [facility] Description: Hemoglobin A1c/Hemoglobin.total in Blood 2020-01-30 02:48:00 Test Item Value Reference Range Interpretation Comments Hemoglobin A1c (test code 6.0 % 4.8-5.6 H . Prediabetes: 5.7 - = 4548-4) 6.4 Diabetes: > 6.4 Glycemic contro l for adults with suzanne betes: <7.0

P erformed by:
[facility] ([place])

[facility] Description: Hemoglobin A1c/Hemoglobin.total in Blood 2020-01-30 02:48:00 Test Item Value Reference Range Interpretation Comments Hemoglobin A1c (test code 6.0 % 4.8-5.6 H . Prediabetes: 5.7 - = 4548-4) 6.4 Diabetes: > 6.4 Glycemic contro l for adults with suzanne betes: <7.0

P erformed by:
[facility] ([place])

[facility] Description: Hemoglobin A1c/Hemoglobin.total in Blood 2020-01-30 02:48:00 Test Item Value Reference Range Interpretation Comments Hemoglobin A1c (test code 6.0 % 4.8-5.6 H . Prediabetes: 5.7 - = 4548-4) 6.4 Diabetes: > 6.4 Glycemic contro l for adults with suzanne betes: <7.0

P erformed by:
[facility] ([place])

[facility] Description: Hemoglobin A1c/Hemoglobin.total in Blood 2020-01-30 02:48:00 Test Item Value Reference Range Interpretation Comments Hemoglobin A1c (test code 6.0 % 4.8-5.6 H . Prediabetes: 5.7 - = 4548-4) 6.4 Diabetes: > 6.4 Glycemic contro l for adults with suzanne betes: <7.0

P erformed by:
[facility] ([place])

[facility] Description: Hemoglobin A1c/Hemoglobin.total in Blood 2020-01-30 02:48:00 Test Item Value Reference Range Interpretation Comments Hemoglobin A1c (test code 6.0 % 4.8-5.6 H . Prediabetes: 5.7 - = 4548-4) 6.4 Diabetes: > 6.4 Glycemic contro l for adults with suzanne betes: <7.0

P erformed by:
[facility] ([place])

[facility] Description: Hemoglobin A1c/Hemoglobin.total in Blood 2020-01-30 02:48:00 Test Item Value Reference Range Interpretation Comments Hemoglobin A1c (test code 6.0 % 4.8-5.6 H . Prediabetes: 5.7 - = 4548-4) 6.4 Diabetes: > 6.4 Glycemic contro l for adults with suzanne betes: <7.0

P erformed by:
[facility] ([place])

[facility] Description: Hemoglobin A1c/Hemoglobin.total in Blood 2020-01-30 02:48:00 Test Item Value Reference Range Interpretation Comments Hemoglobin A1c (test code 6.0 % 4.8-5.6 H . Prediabetes: 5.7 - = 4548-4) 6.4 Diabetes: > 6.4 Glycemic contro l for adults with suzanne betes: <7.0

P erformed by:
[facility] ([place])

[facility] Description: Hemoglobin A1c/Hemoglobin.total in Blood 2020-01-30 02:48:00 Test Item Value Reference Range Interpretation Comments Hemoglobin A1c (test code 6.0 % 4.8-5.6 H . Prediabetes: 5.7 - = 4548-4) 6.4 Diabetes: > 6.4 Glycemic contro l for adults with suzanne betes: <7.0

P erformed by:
[facility] ()

[facility] Description: Hemoglobin A1c/Hemoglobin.total in Blood 2020-01-30 02:48:00 Test Item Value Reference Range Interpretation Comments Hemoglobin A1c (test code 6.0 % 4.8-5.6 H . Prediabetes: 5.7 - = 4548-4) 6.4 Diabetes: > 6.4 Glycemic contro l for adults with suzanne betes: <7.0Performed by:[facility] Georgette martinez ([place]) [facility] Description: Hemoglobin A1c/Hemoglobin.total in Blood 2020-01-30 02:48:00 Test Item Value Reference Range Interpretation Comments Hemoglobin A1c (test code 6.0 % 4.8-5.6 H . Prediabetes: 5.7 - = 4548-4) 6.4 Diabetes: > 6.4 Glycemic contro l for adults with suzanne betes: <7.0Performed by:[facility] Georgette martinez ([place]) [facility] Description: Hemoglobin A1c/Hemoglobin.total in Blood 2020-01-30 02:48:00 Test Item Value Reference Range Interpretation Comments Hemoglobin A1c (test code 6.0 % 4.8-5.6 H . Prediabetes: 5.7 - = 4548-4) 6.4 Diabetes: > 6.4 Glycemic contro l for adults with suzanne betes: <7.0Performed by:[facility] Georgette martinez ([place]) [facility] Description: Hemoglobin A1c/Hemoglobin.total in Blood 2020-01-30 02:48:00 Test Item Value Reference Range Interpretation Comments Hemoglobin A1c (test code 6.0 % 4.8-5.6 H . Prediabetes: 5.7 - = 4548-4) 6.4 Diabetes: > 6.4 Glycemic contro l for adults with suzanne betes: <7.0Performed by:[facility] Georgette martinez ([place]) [facility] Description: Hemoglobin A1c/Hemoglobin.total in Blood 2020-01-30 02:48:00 Test Item Value Reference Range Interpretation Comments Hemoglobin A1c (test code 6.0 % 4.8-5.6 H . Prediabetes: 5.7 - = 4548-4) 6.4 Diabetes: > 6.4 Glycemic contro l for adults with suzanne betes: <7.0

P erformed by:
[facility] ([place])

[facility] Description: Hemoglobin A1c/Hemoglobin.total in Blood 2020-01-30 02:48:00 Test Item Value Reference Range Interpretation Comments Hemoglobin A1c (test code 6.0 % 4.8-5.6 H . Prediabetes: 5.7 - = 4548-4) 6.4 Diabetes: > 6.4 Glycemic contro l for adults with suzanne betes: <7.0Performed by:[facility] Georgette martinez ([place]) [facility] Description: Hemoglobin A1c/Hemoglobin.total in Blood 2020-01-30 02:48:00 Test Item Value Reference Range Interpretation Comments Hemoglobin A1c (test code 6.0 % 4.8-5.6 H . Prediabetes: 5.7 - = 4548-4) 6.4 Diabetes: > 6.4 Glycemic contro l for adults with suzanne betes: <7.0Performed by:[facility] mart[facility] ([place]) [facility] Description: Hemoglobin A1c/Hemoglobin.total in Blood 2020-01-30 02:48:00 Test Item Value Reference Range Interpretation Comments Hemoglobin A1c (test code 6.0 % 4.8-5.6 H . Prediabetes: 5.7 - = 4548-4) 6.4 Diabetes: > 6.4 Glycemic contro l for adults with suzanne betes: <7.0Performed by:[facility] ([place]) [facility] Description: Hemoglobin A1c/Hemoglobin.total in Blood 2020-01-30 02:48:00 Test Item Value Reference Range Interpretation Comments Hemoglobin A1c (test code 6.0 % 4.8-5.6 H . Prediabetes: 5.7 - = 4548-4) 6.4 Diabetes: > 6.4 Glycemic contro l for adults with suzanne betes: <7.0Performed by:Chet martinez ([place]) [facility] Description: Hemoglobin A1c/Hemoglobin.total in Blood 2020-01-30 02:48:00 Test Item Value Reference Range Interpretation Comments Hemoglobin A1c (test code 6.0 % 4.8-5.6 H . Prediabetes: 5.7 - = 4548-4) 6.4 Diabetes: > 6.4 Glycemic contro l for adults with suzanne betes: <7.0Performed by:[facility] ([place]) [facility] Description: Hemoglobin A1c/Hemoglobin.total in Blood 2020-01-30 02:48:00 Test Item Value Reference Range Interpretation Comments Hemoglobin A1c (test code 6.0 % 4.8-5.6 H . Prediabetes: 5.7 - = 4548-4) 6.4 Diabetes: > 6.4 Glycemic contro l for adults with suzanne betes: <7.0

P erformed by:
Chet Montilla (HD)

[facility] Description: Hemoglobin A1c/Hemoglobin.total in Blood 2020-01-30 02:48:00 Test Item Value Reference Range Interpretation Comments Hemoglobin A1c (test code 6.0 % 4.8-5.6 H . Prediabetes: 5.7 - = 4548-4) 6.4 Diabetes: > 6.4 Glycemic contro l for adults with suzanne betes: <7.0

P erformed by:
[facility] ()

[facility] Description: Hemoglobin A1c/Hemoglobin.total in Blood 2020-01-30 02:48:00 Test Item Value Reference Range Interpretation Comments Hemoglobin A1c (test code 6.0 % 4.8-5.6 H . Prediabetes: 5.7 - = 4548-4) 6.4 Diabetes: > 6.4 Glycemic contro l for adults with suzanne betes: <7.0

P erformed by:
[facility] ()

[facility] Description: Hemoglobin A1c/Hemoglobin.total in Blood 2020-01-30 02:48:00 Test Item Value Reference Range Interpretation Comments Hemoglobin A1c (test code 6.0 % 4.8-5.6 H . Prediabetes: 5.7 - = 4548-4) 6.4 Diabetes: > 6.4 Glycemic contro l for adults with suzanne betes: <7.0

P erformed by:
[facility] ()

[facility] Description: Hemoglobin A1c/Hemoglobin.total in Blood 2019-10-14 06:28:00 Test Item Value Reference Range Interpretation Comments Hemoglobin A1c (test code 5.6 % 4.8-5.6 . Prediabetes: 5.7 - = 4548-4) 6.4 Diabetes: > 6.4 Glycemic contro l for adults with suzanne betes: <7.0

P erformed by:
[facility] ()

[facility] Description: Hemoglobin A1c/Hemoglobin.total in Blood 2019-10-14 06:28:00 Test Item Value Reference Range Interpretation Comments Hemoglobin A1c (test code 5.6 % 4.8-5.6 . Prediabetes: 5.7 - = 4548-4) 6.4 Diabetes: > 6.4 Glycemic contro l for adults with suzanne betes: <7.0

P erformed by:
[facility] (HD)

[facility] Description: Hemoglobin A1c/Hemoglobin.total in Blood 2019-10-14 06:28:00 Test Item Value Reference Range Interpretation Comments Hemoglobin A1c (test code 5.6 % 4.8-5.6 . Prediabetes: 5.7 - = 4548-4) 6.4 Diabetes: > 6.4 Glycemic contro l for adults with suzanne betes: <7.0

P erformed by:
[facility] ([place])

[facility] Description: Hemoglobin A1c/Hemoglobin.total in Blood 2019-10-14 06:28:00 Test Item Value Reference Range Interpretation Comments Hemoglobin A1c (test code 5.6 % 4.8-5.6 . Prediabetes: 5.7 - = 4548-4) 6.4 Diabetes: > 6.4 Glycemic contro l for adults with suzanne betes: <7.0

P erformed by:
[facility] (HD)

[facility] Description: Hemoglobin A1c/Hemoglobin.total in Blood 2019-10-14 06:28:00 Test Item Value Reference Range Interpretation Comments Hemoglobin A1c (test code 5.6 % 4.8-5.6 . Prediabetes: 5.7 - = 4548-4) 6.4 Diabetes: > 6.4 Glycemic contro l for adults with suzanne betes: <7.0

P erformed by:
[facility] (HD)

[facility] Description: Hemoglobin A1c/Hemoglobin.total in Blood 2019-10-14 06:28:00 Test Item Value Reference Range Interpretation Comments Hemoglobin A1c (test code 5.6 % 4.8-5.6 . Prediabetes: 5.7 - = 4548-4) 6.4 Diabetes: > 6.4 Glycemic contro l for adults with suzanne betes: <7.0

P erformed by:
[facility] ([place])

[facility] Description: Hemoglobin A1c/Hemoglobin.total in Blood 2019-10-14 06:28:00 Test Item Value Reference Range Interpretation Comments Hemoglobin A1c (test code 5.6 % 4.8-5.6 . Prediabetes: 5.7 - = 4548-4) 6.4 Diabetes: > 6.4 Glycemic contro l for adults with suzanne betes: <7.0

P erformed by:
[facility] (HD)

[facility] Description: Hemoglobin A1c/Hemoglobin.total in Blood 2019-10-14 06:28:00 Test Item Value Reference Range Interpretation Comments Hemoglobin A1c (test code 5.6 % 4.8-5.6 . Prediabetes: 5.7 - = 4548-4) 6.4 Diabetes: > 6.4 Glycemic contro l for adults with suzanne betes: <7.0

P erformed by:
[facility] ([place])

[facility] Description: Hemoglobin A1c/Hemoglobin.total in Blood 2019-10-14 06:28:00 Test Item Value Reference Range Interpretation Comments Hemoglobin A1c (test code 5.6 % 4.8-5.6 . Prediabetes: 5.7 - = 4548-4) 6.4 Diabetes: > 6.4 Glycemic contro l for adults with suzanne betes: <7.0Performed by:[facility] ([place]) [facility] Description: Hemoglobin A1c/Hemoglobin.total in Blood 2019-10-14 06:28:00 Test Item Value Reference Range Interpretation Comments Hemoglobin A1c (test code 5.6 % 4.8-5.6 . Prediabetes: 5.7 - = 4548-4) 6.4 Diabetes: > 6.4 Glycemic contro l for adults with suzanne betes: <7.0Performed by:[facility] ([place]) [facility] Description: Hemoglobin A1c/Hemoglobin.total in Blood 2019-10-14 06:28:00 Test Item Value Reference Range Interpretation Comments Hemoglobin A1c (test code 5.6 % 4.8-5.6 . Prediabetes: 5.7 - = 4548-4) 6.4 Diabetes: > 6.4 Glycemic contro l for adults with suzanne betes: <7.0Performed by:[facility] Georgette martinez (HD) [facility] Description: Hemoglobin A1c/Hemoglobin.total in Blood 2019-10-14 06:28:00 Test Item Value Reference Range Interpretation Comments Hemoglobin A1c (test code 5.6 % 4.8-5.6 . Prediabetes: 5.7 - = 4548-4) 6.4 Diabetes: > 6.4 Glycemic contro l for adults with suzanne betes: <7.0Performed by:[facility] Georgette martinez (HD) [facility] Description: Hemoglobin A1c/Hemoglobin.total in Blood 2019-10-14 06:28:00 Test Item Value Reference Range Interpretation Comments Hemoglobin A1c (test code 5.6 % 4.8-5.6 . Prediabetes: 5.7 - = 4548-4) 6.4 Diabetes: > 6.4 Glycemic contro l for adults with suzanne betes: <7.0Performed by:[facility] Georgette martinez (HD) [facility] Description: Hemoglobin A1c/Hemoglobin.total in Blood 2019-10-14 06:28:00 Test Item Value Reference Range Interpretation Comments Hemoglobin A1c (test code 5.6 % 4.8-5.6 . Prediabetes: 5.7 - = 4548-4) 6.4 Diabetes: > 6.4 Glycemic contro l for adults with suzanne betes: <7.0

P erformed by:
[facility] ([place])

[facility] Description: Hemoglobin A1c/Hemoglobin.total in Blood 2019-10-14 06:28:00 Test Item Value Reference Range Interpretation Comments Hemoglobin A1c (test code 5.6 % 4.8-5.6 . Prediabetes: 5.7 - = 4548-4) 6.4 Diabetes: > 6.4 Glycemic contro l for adults with suzanne betes: <7.0Performed by:[facility] Georgette martinez (HD) [facility] Description: Hemoglobin A1c/Hemoglobin.total in Blood 2019-10-14 06:28:00 Test Item Value Reference Range Interpretation Comments Hemoglobin A1c (test code 5.6 % 4.8-5.6 . Prediabetes: 5.7 - = 4548-4) 6.4 Diabetes: >6.4 Glycemic contro l for adults with suzanne betes: <7.0Performed by:[facility] Georgette martinez (HD) [facility] Description: Hemoglobin A1c/Hemoglobin.total in Blood 2019-10-14 06:28:00 Test Item Value Reference Range Interpretation Comments Hemoglobin A1c (test code 5.6 % 4.8-5.6 . Prediabetes: 5.7 - = 4548-4) 6.4 Diabetes: > 6.4 Glycemic contro l for adults with suzanne betes: <7.0Performed by:[facility] Georgette martinez (HD) [facility] Description: Hemoglobin A1c/Hemoglobin.total in Blood 2019-10-14 06:28:00 Test Item Value Reference Range Interpretation Comments Hemoglobin A1c (test code 5.6 % 4.8-5.6 . Prediabetes: 5.7 - = 4548-4) 6.4 Diabetes: > 6.4 Glycemic contro l for adults with suzanne betes: <7.0Performed by:[facility] Georgette martinez (HD) [facility] Description: Hemoglobin A1c/Hemoglobin.total in Blood 2019-10-14 06:28:00 Test Item Value Reference Range Interpretation Comments Hemoglobin A1c (test code 5.6 % 4.8-5.6 . Prediabetes: 5.7 - = 4548-4) 6.4 Diabetes: > 6.4 Glycemic contro l for adults with suzanne betes: <7.0

P erformed by:
Chet Montilla (HD)

[facility] Description: Hemoglobin A1c/Hemoglobin.total in Blood 2019-10-14 06:28:00 Test Item Value Reference Range Interpretation Comments Hemoglobin A1c (test code 5.6 % 4.8-5.6 . Prediabetes: 5.7 - = 4548-4) 6.4 Diabetes: > 6.4 Glycemic contro l for adults with suzanne betes: <7.0

P erformed by:
[facility] ()

[facility] Description: Hemoglobin A1c/Hemoglobin.total in Blood 2019-10-14 06:28:00 Test Item Value Reference Range Interpretation Comments Hemoglobin A1c (test code 5.6 % 4.8-5.6 . Prediabetes: 5.7 - = 4548-4) 6.4 Diabetes: > 6.4 Glycemic contro l for adults with suzanne betes: <7.0

P erformed by:
[facility] (HD)

[facility] Description: Hemoglobin A1c/Hemoglobin.total in Blood 2019-10-14 06:28:00 Test Item Value Reference Range Interpretation Comments Hemoglobin A1c (test code 5.6 % 4.8-5.6 . Prediabetes: 5.7 - = 4548-4) 6.4 Diabetes: > 6.4 Glycemic contro l for adults with suzanne betes: <7.0

P erformed by:
[facility] ()

[facility] Description: Lipid [id number] 04:18:00 Test Item Value Reference Range Interpretation Comments Cholesterol, Total (test code = 126 mg/dL 858-381 8012-3) Triglycerides (test code = 2571-8) 120 mg/dL 0-149 HDL Cholesterol (test code = 39 mg/dL >39 L 2085-04) VLDL Cholesterol Jose Roberto (test code = 24 mg/dL 5-40 41762-8) LDL Cholesterol Calc (test code = 63 mg/dL 0-99 15149-6) Comment: (test code = 12823-2) [facility] Description: Lipid [id number] 04:18:00 Test Item Value Reference Range Interpretation Comments Cholesterol, Total (test code = 126 mg/dL 460-039 8648-3) Triglycerides (test code = 2571-8) 120 mg/dL 0-149 HDL Cholesterol (test code = 39 mg/dL >39 L 9) VLDL Cholesterol Jose Roberto (test code = 24 mg/dL 5-40 83333-9) LDL Cholesterol Calc (test code = 63 mg/dL 0-99 17341-7) Comment: (test code = 38927-2) [facility] Description: Lipid [id number] 04:18:00 Test Item Value Reference Range Interpretation Comments Cholesterol, Total (test code = 126 mg/dL 969-426 1191-3) Triglycerides (test code = 2571-8) 120 mg/dL 0-149 HDL Cholesterol (test code = 39 mg/dL >39 L 2085-9) VLDL Cholesterol Jose Roberto (test code = 24 mg/dL 5-40 56695-0) LDL Cholesterol Calc (test code = 63 mg/dL 0-99 30004-2) Comment: (test code = 30011-7) [facility] Description: Lipid [id number] 04:18:00 Test Item Value Reference Range Interpretation Comments Cholesterol, Total (test code = 126 mg/dL 089-672 6475-3) Triglycerides (test code = 2571-8) 120 mg/dL 0-149 HDL Cholesterol (test code = 39 mg/dL >39 L 2085-9) VLDL Cholesterol Jose Roberto (test code = 24 mg/dL 5-40 66823-4) LDL Cholesterol Calc (test code = 63 mg/dL 0-99 44560-5) Comment: (test code = 87885-3) [facility] Description: Lipid [id number] 04:18:00 Test Item Value Reference Range Interpretation Comments Cholesterol, Total (test code = 126 mg/dL 825-080 4532-3) Triglycerides (test code = 2571-8) 120 mg/dL 0-149 HDL Cholesterol (test code = 39 mg/dL >39 L 2085-9) VLDL Cholesterol Jose Roberto (test code = 24 mg/dL 5-40 68855-2) LDL Cholesterol Calc (test code = 63 mg/dL 0-99 74794-4) Comment: (test code = 33823-8) [facility] Description: Lipid [id number] 04:18:00 Test Item Value Reference Range Interpretation Comments Cholesterol, Total (test code = 126 mg/dL 941-033 5196-3) Triglycerides (test code = 2571-8) 120 mg/dL 0-149 HDL Cholesterol (test code = 39 mg/dL >39 L 2085-9) VLDL Cholesterol Jose Roberto (test code = 24 mg/dL 5-40 05243-3) LDL Cholesterol Calc (test code = 63 mg/dL 0-99 36215-5) Comment: (test code = 82470-8) [facility] Description: Lipid [id number] 04:18:00 Test Item Value Reference Range Interpretation Comments Cholesterol, Total (test code = 126 mg/dL 350-711 7208-3) Triglycerides (test code = 2571-8) 120 mg/dL 0-149 HDL Cholesterol (test code = 39 mg/dL >39 L 2085-9) VLDL Cholesterol Jose Roberto (test code = 24 mg/dL 5-40 45436-3) LDL Cholesterol Calc (test code = 63 mg/dL 0-99 78012-6) Comment: (test code = 38029-8) [facility] Description: Lipid [id number] 04:18:00 Test Item Value Reference Range Interpretation Comments Cholesterol, Total (test code = 126 mg/dL 706-092 6429-3) Triglycerides (test code = 2571-8) 120 mg/dL 0-149 HDL Cholesterol (test code = 39 mg/dL >39 L 2085-9) VLDL Cholesterol Jose Roberto (test code = 24 mg/dL 5-40 02827-6) LDL Cholesterol Calc (test code = 63 mg/dL 0-99 98060-1) Comment: (test code = 49200-0) [facility] Description: Lipid [id number] 04:18:00 Test Item Value Reference Range Interpretation Comments Cholesterol, Total (test code = 126 mg/dL 416-998 7822-3) Triglycerides (test code = 2571-8) 120 mg/dL 0-149 HDL Cholesterol (test code = 39 mg/dL >39 L 2085-9) VLDL Cholesterol Jose Roberto (test code = 24 mg/dL 5-40 98132-8) LDL Cholesterol Calc (test code = 63 mg/dL 0-99 60118-5) Comment: (test code = 89420-2) [facility] Description: Lipid [id number] 04:18:00 Test Item Value Reference Range Interpretation Comments Cholesterol, Total (test code = 126 mg/dL 520-491 9286-3) Triglycerides (test code = 2571-8) 120 mg/dL 0-149 HDL Cholesterol (test code = 39 mg/dL >39 L 2085-9) VLDL Cholesterol Jose Roberto (test code = 24 mg/dL 5-40 45758-6) LDL Cholesterol Calc (test code = 63 mg/dL 0-99 08489-0) Comment: (test code = 94432-3) [facility] Description: Lipid [id number] 04:18:00 Test Item Value Reference Range Interpretation Comments Cholesterol, Total (test code = 126 mg/dL 138-418 2108-3) Triglycerides (test code = 2571-8) 120 mg/dL 0-149 HDL Cholesterol (test code = 39 mg/dL >39 L 2085-9) VLDL Cholesterol Jose Roberto (test code = 24 mg/dL 5-40 73444-9) LDL Cholesterol Calc (test code = 63 mg/dL 0-99 09240-6) Comment: (test code = 66751-3) [facility] Description: Lipid [id number] 04:18:00 Test Item Value Reference Range Interpretation Comments Cholesterol, Total (test code = 126 mg/dL 673-159 8431-3) Triglycerides (test code = 2571-8) 120 mg/dL 0-149 HDL Cholesterol (test code = 39 mg/dL >39 L 5-9) VLDL Cholesterol Jose Roberto (test code = 24 mg/dL 5-40 26280-7) LDL Cholesterol Calc (test code = 63 mg/dL 0-99 40009-1) Comment: (test code = 83924-8) [facility] Description: Lipid [id number] 04:18:00 Test Item Value Reference Range Interpretation Comments Cholesterol, Total (test code = 126 mg/dL 216-599 9765-3) Triglycerides (test code = 2571-8) 120 mg/dL 0-149 HDL Cholesterol (test code = 39 mg/dL >39 L 5-9) VLDL Cholesterol Jose Roberto (test code = 24 mg/dL 5-40 80223-0) LDL Cholesterol Calc (test code = 63 mg/dL 0-99 13674-6) Comment: (test code = 50061-8) [facility] Description: Lipid [id number] 04:18:00 Test Item Value Reference Range Interpretation Comments Cholesterol, Total (test code = 126 mg/dL 553-283 5776-3) Triglycerides (test code = 2571-8) 120 mg/dL 0-149 HDL Cholesterol (test code = 39 mg/dL >39 L 2085-9) VLDL Cholesterol Jose Roberto (test code = 24 mg/dL 5-40 05951-8) LDL Cholesterol Calc (test code = 63 mg/dL 0-99 84415-0) Comment: (test code = 21898-7) [facility] Description: Lipid [id number] 04:18:00 Test Item Value Reference Range Interpretation Comments Cholesterol, Total (test code = 126 mg/dL 763-678 0137-3) Triglycerides (test code = 2571-8) 120 mg/dL 0-149 HDL Cholesterol (test code = 39 mg/dL >39 L 2085-9) VLDL Cholesterol Jose Roberto (test code = 24 mg/dL 5-40 30639-2) LDL Cholesterol Calc (test code = 63 mg/dL 0-99 79030-1) Comment: (test code = 16011-9) [facility] Description: Lipid [id number] 04:18:00 Test Item Value Reference Range Interpretation Comments Cholesterol, Total (test code = 126 mg/dL 644-193 3513-3) Triglycerides (test code = 2571-8) 120 mg/dL 0-149 HDL Cholesterol (test code = 39 mg/dL >39 L 2085-9) VLDL Cholesterol Jose Roberto (test code = 24 mg/dL 5-40 47834-5) LDL Cholesterol Calc (test code = 63 mg/dL 0-99 35886-2) Comment: (test code = 08305-8) [facility] Description: Lipid [id number] 04:18:00 Test Item Value Reference Range Interpretation Comments Cholesterol, Total (test code = 126 mg/dL 696-057 4827-3) Triglycerides (test code = 2571-8) 120 mg/dL 0-149 HDL Cholesterol (test code = 39 mg/dL >39 L 2085-9) VLDL Cholesterol Jose Roberto (test code = 24 mg/dL 5-40 76741-7) LDL Cholesterol Calc (test code = 63 mg/dL 0-99 19693-2) Comment: (test code = 87493-1) [facility] Description: Lipid [id number] 04:18:00 Test Item Value Reference Range Interpretation Comments Cholesterol, Total (test code = 126 mg/dL 117-372 7760-3) Triglycerides (test code = 2571-8) 120 mg/dL 0-149 HDL Cholesterol (test code = 39 mg/dL >39 L 2085-9) VLDL Cholesterol Jose Roberto (test code = 24 mg/dL 5-40 28942-7) LDL Cholesterol Calc (test code = 63 mg/dL 0-99 68240-8) Comment: (test code = 67762-9) [facility] Description: Lipid [id number] 04:18:00 Test Item Value Reference Range Interpretation Comments Cholesterol, Total (test code = 126 mg/dL 418-539 1377-3) Triglycerides (test code = 2571-8) 120 mg/dL 0-149 HDL Cholesterol (test code = 39 mg/dL >39 L 2085-9) VLDL Cholesterol Jose Roberto (test code = 24 mg/dL 5-40 38280-1) LDL Cholesterol Calc (test code = 63 mg/dL 0-99 03129-7) Comment: (test code = 16735-4) [facility] Description: Lipid [id number] 04:18:00 Test Item Value Reference Range Interpretation Comments Cholesterol, Total (test code = 126 mg/dL 206-433 7581-3) Triglycerides (test code = 2571-8) 120 mg/dL 0-149 HDL Cholesterol (test code = 39 mg/dL >39 L 2085-9) VLDL Cholesterol Jose Roberto (test code = 24 mg/dL 5-40 10906-5) LDL Cholesterol Calc (test code = 63 mg/dL 0-99 41017-0) Comment: (test code = 39020-5) [facility] Description: Lipid [id number] 04:18:00 Test Item Value Reference Range Interpretation Comments Cholesterol, Total (test code = 126 mg/dL 476-669 7826-3) Triglycerides (test code = 2571-8) 120 mg/dL 0-149 HDL Cholesterol (test code = 39 mg/dL >39 L 2085-9) VLDL Cholesterol Jose Roberto (test code = 24 mg/dL 5-40 70851-1) LDL Cholesterol Calc (test code = 63 mg/dL 0-99 72057-3) Comment: (test code = 96475-6) [facility] Description: Lipid [id number] 04:18:00 Test Item Value Reference Range Interpretation Comments Cholesterol, Total (test code = 126 mg/dL 932-623 3307-3) Triglycerides (test code = 2571-8) 120 mg/dL 0-149 HDL Cholesterol (test code = 39 mg/dL >39 L 2084-9) VLDL Cholesterol Jose Roberto (test code = 24 mg/dL 5-40 57157-7) LDL Cholesterol Calc (test code = 63 mg/dL 0-99 30144-5) Comment: (test code = 86929-4) [facility] Description: Comp. Metabolic Panel (14)2019-10-14 03:52:00 Test Item Value Reference Range Interpretation Comments Glucose (test code = 2345-7) 113 mg/dL 65-99 H BUN (test code = 3094-0) 11 mg/dL 6-24 Creatinine (test code = 0.98 mg/dL 0.76-1.27 2160-0) eGFR If NonAfricn Am (test 89 mL/min/1.73 >59 code = 46780-4) eGFR If Africn Am (test code 103 mL/min/1.73 >59 = 58987-7) BUN/Creatinine Ratio (test 11 9-20 code = 3097-3) Sodium (test code = 2951-2) 141 mmol/L 134-144 Potassium (test code = 4.7 mmol/L 3.5-5.2 3-3) Chloride (test code = 2075-0) 105 mmol/L 96-106 Carbon Dioxide, Total (test 21 mmol/L 20-29 code = 8-9) Calcium (test code = 43958-6) 9.5 mg/dL 8.7-10.2 Protein, Total (test code = 7.0 g/dL 6.0-8.5 2885-2) Albumin (test code = 1751-7) 4.6 g/dL 3.8-4.9 Globulin, Total (test code = 2.4 g/dL 1.5-4.5 43808-1) A/G Ratio (test code = 1.9 1.2-2.2 1759-0) Bilirubin, Total (test code = 0.4 mg/dL 0.0-1.2 1974-2) Alkaline Phosphatase (test 73 IU/L 39-117 code = 6768-6) AST (SGOT) (test code = 20 IU/L 0-40 1920-8) ALT (SGPT) (test code = 16 IU/L 0-44 1742-6) [facility] Description: Comp. Metabolic Panel (14)2019-10-14 03:52:00 Test Item Value Reference Range Interpretation Comments Glucose (test code = 2345-7) 113 mg/dL 65-99 H BUN (test code = 3094-0) 11 mg/dL 6-24 Creatinine (test code = 0.98 mg/dL 0.76-1.27 2160-0) eGFR If NonAfricn Am (test 89 mL/min/1.73 >59 code = 37862-1) eGFR If Africn Am (test code 103 mL/min/1.73 >59 = 53193-5) BUN/Creatinine Ratio (test 11 -20 code = 3097-3) Sodium (test code = 2951-2) 141 mmol/L 134-144 Potassium (test code = 4.7 mmol/L 3.5-5.2 2823-3) Chloride (test code = 2075-0) 105 mmol/L 96-106 Carbon Dioxide, Total (test 21 mmol/L 20-29 code = 8-9) Calcium (test code = 34760-4) 9.5 mg/dL 8.7-10.2 Protein, Total (test code = 7.0 g/dL 6.0-8.5 2885-2) Albumin (test code = 1751-7) 4.6 g/dL 3.8-4.9 Globulin, Total (test code = 2.4 g/dL 1.5-4.5 62026-2) A/G Ratio (test code = 1.9 1.2-2.2 1759-0) Bilirubin, Total (test code = 0.4 mg/dL 0.0-1.2 1975-2) Alkaline Phosphatase (test 73 IU/L 39-117 code = 6768-6) AST (SGOT) (test code = 20 IU/L 0-40 1920-8) ALT (SGPT) (test code = 16 IU/L 0-44 1742-6) [facility] Description: Comp. Metabolic Panel (14)2019-10-14 03:52:00 Test Item Value Reference Range Interpretation Comments Glucose (test code = 2345-7) 113 mg/dL 65-99 H BUN (test code = 3094-0) 11 mg/dL 6-24 Creatinine (test code = 0.98 mg/dL 0.76-1.27 2160-0) eGFR If NonAfricn Am (test 89 mL/min/1.73 >59 code = 90115-0) eGFR If Africn Am (test code 103 mL/min/1.73 >59 = 12099-9) BUN/Creatinine Ratio (test 11 - code = 3097-3) Sodium (test code = 2951-2) 141 mmol/L 134-144 Potassium (test code = 4.7 mmol/L 3.5-5.2 2823-3) Chloride (test code = 2075-0) 105 mmol/L 96-106 Carbon Dioxide, Total (test 21 mmol/L 20-29 code = 8-9) Calcium (test code = 79457-7) 9.5 mg/dL 8.7-10.2 Protein, Total (test code = 7.0 g/dL 6.0-8.5 2885-2) Albumin (test code = 1751-7) 4.6 g/dL 3.8-4.9 Globulin, Total (test code = 2.4 g/dL 1.5-4.5 04140-0) A/G Ratio (test code = 1.9 1.2-2.2 1759-0) Bilirubin, Total (test code = 0.4 mg/dL 0.0-1.2 1975-2) Alkaline Phosphatase (test 73 IU/L 39-117 code = 6768-6) AST (SGOT) (test code = 20 IU/L 0-40 1920-8) ALT (SGPT) (test code = 16 IU/L 0-44 1742-6) [facility] Description: Comp. Metabolic Panel (142019-10-14 03:52:00 Test Item Value Reference Range Interpretation Comments Glucose (test code = 2345-7) 113 mg/dL 65-99 H BUN (test code = 3094-0) 11 mg/dL 6-24 Creatinine (test code = 0.98 mg/dL 0.76-1.27 2160-0) eGFR If NonAfricn Am (test 89 mL/min/1.73 >59 code = 73059-5) eGFR If Africn Am (test code 103 mL/min/1.73 >59 = 04744-3) BUN/Creatinine Ratio (test 05-01 code = 3097-3) Sodium (test code = 2951-2) 141 mmol/L 134-144 Potassium (test code = 4.7 mmol/L 3.5-5.2 2823-3) Chloride (test code = 2075-0) 105 mmol/L 96-106 Carbon Dioxide, Total (test 21 mmol/L 20-29 code = 8-9) Calcium (test code = 19024-3) 9.5 mg/dL 8.7-10.2 Protein, Total (test code = 7.0 g/dL 6.0-8.5 2885-2) Albumin (test code = 1751-7) 4.6 g/dL 3.8-4.9 Globulin, Total (test code = 2.4 g/dL 1.5-4.5 32380-9) A/G Ratio (test code = 1.9 1.2-2.2 1759-0) Bilirubin, Total (test code = 0.4 mg/dL 0.0-1.2 1975-2) Alkaline Phosphatase (test 73 IU/L 39-117 code = 6768-6) AST (SGOT) (test code = 20 IU/L 0-40 1920-8) ALT (SGPT) (test code = 16 IU/L 0-44 1742-6) [facility] Description: Comp. Metabolic Panel (142019-10-14 03:52:00 Test Item Value Reference Range Interpretation Comments Glucose (test code = 2345-7) 113 mg/dL 65-99 H BUN (test code = 3094-0) 11 mg/dL 6-24 Creatinine (test code = 0.98 mg/dL 0.76-1.27 2160-0) eGFR If NonAfricn Am (test 89 mL/min/1.73 >59 code = 98253-9) eGFR If Africn Am (test code 103 mL/min/1.73 >59 = 91640-0) BUN/Creatinine Ratio (test 05-01 code = 3097-3) Sodium (test code = 2951-2) 141 mmol/L 134-144 Potassium (test code = 4.7 mmol/L 3.5-5.2 2823-3) Chloride (test code = 2075-0) 105 mmol/L 96-106 Carbon Dioxide, Total (test 21 mmol/L - code = 2027-9) Calcium (test code = 62745-8) 9.5 mg/dL 8.7-10.2 Protein, Total (test code = 7.0 g/dL 6.0-8.5 2885-2) Albumin (test code = 1751-7) 4.6 g/dL 3.8-4.9 Globulin, Total (test code = 2.4 g/dL 1.5-4.5 50191-7) A/G Ratio (test code = 1.9 1.2-2.2 1759-0) Bilirubin, Total (test code = 0.4 mg/dL 0.0-1.2 1975-2) Alkaline Phosphatase (test 73 IU/L 39-117 code = 6768-6) AST (SGOT) (test code = 20 IU/L 0-40 1920-8) ALT (SGPT) (test code = 16 IU/L 0-44 1742-6) [facility] Description: Comp. Metabolic Panel (14)2019-10-14 03:52:00 Test Item Value Reference Range Interpretation Comments Glucose (test code = 2345-7) 113 mg/dL 65-99 H BUN (test code = 3094-0) 11 mg/dL 6-24 Creatinine (test code = 0.98 mg/dL 0.76-1.27 2160-0) eGFR If NonAfricn Am (test 89 mL/min/1.73 >59 code = 87430-1) eGFR If Africn Am (test code 103 mL/min/1.73 >59 = 86691-0) BUN/Creatinine Ratio (test 11 05-01 code = 3097-3) Sodium (test code = 2951-2) 141 mmol/L 134-144 Potassium (test code = 4.7 mmol/L 3.5-5.2 2823-3) Chloride (test code = 2075-0) 105 mmol/L 96-106 Carbon Dioxide, Total (test 21 mmol/L code = 2027-) Calcium (test code = 43307-8) 9.5 mg/dL 8.7-10.2 Protein, Total (test code = 7.0 g/dL 6.0-8.5 2885-2) Albumin (test code = 1751-7) 4.6 g/dL 3.8-4.9 Globulin, Total (test code = 2.4 g/dL 1.5-4.5 16716-5) A/G Ratio (test code = 1.9 1.2-2.2 1759-0) Bilirubin, Total (test code = 0.4 mg/dL 0.0-1.2 1975-2) Alkaline Phosphatase (test 73 IU/L 39-117 code = 6768-6) AST (SGOT) (test code = 20 IU/L 0-40 1920-8) ALT (SGPT) (test code = 16 IU/L 0-44 1742-6) [facility] Description: Comp. Metabolic Panel (142019-10-14 03:52:00 Test Item Value Reference Range Interpretation Comments Glucose (test code = 2345-7) 113 mg/dL 65-99 H BUN (test code = 3094-0) 11 mg/dL 6-24 Creatinine (test code = 0.98 mg/dL 0.76-1.27 2160-0) eGFR If NonAfricn Am (test 89 mL/min/1.73 >59 code = 28957-6) eGFR If Africn Am (test code 103 mL/min/1.73 >59 = 96011-7) BUN/Creatinine Ratio (test 11 05-01 code = 3097-3) Sodium (test code = 2951-2) 141 mmol/L 134-144 Potassium (test code = 4.7 mmol/L 3.5-5.2 2823-3) Chloride (test code = 2075-0) 105 mmol/L 96-106 Carbon Dioxide, Total (test 21 mmol/L code = 2027-9) Calcium (test code = 88360-6) 9.5 mg/dL 8.7-10.2 Protein, Total (test code = 7.0 g/dL 6.0-8.5 2885-2) Albumin (test code = 1751-7) 4.6 g/dL 3.8-4.9 Globulin, Total (test code = 2.4 g/dL 1.5-4.5 80756-9) A/G Ratio (test code = 1.9 1.2-2.2 1759-0) Bilirubin, Total (test code = 0.4 mg/dL 0.0-1.2 1975-2) Alkaline Phosphatase (test 73 IU/L 39-117 code = 6768-6) AST (SGOT) (test code = 20 IU/L 0-40 1920-8) ALT (SGPT) (test code = 16 IU/L 0-44 1742-6) [facility] Description: Comp. Metabolic Panel (2019-10-14 03:52:00 Test Item Value Reference Range Interpretation Comments Glucose (test code = 2345-7) 113 mg/dL 65-99 H BUN (test code = 3094-0) 11 mg/dL 6-24 Creatinine (test code = 0.98 mg/dL 0.76-1.27 2160-0) eGFR If NonAfricn Am (test 89 mL/min/1.73 >59 code = 08377-2) eGFR If Africn Am (test code 103 mL/min/1.73 >59 = 87904-8) BUN/Creatinine Ratio (test 11 - code = 3097-3) Sodium (test code = 2951-2) 141 mmol/L 134-144 Potassium (test code = 4.7 mmol/L 3.5-5.2 2823-3) Chloride (test code = 2075-0) 105 mmol/L 96-106 Carbon Dioxide, Total (test 21 mmol/L 20-29 code = 8-9) Calcium (test code = 64136-2) 9.5 mg/dL 8.7-10.2 Protein, Total (test code = 7.0 g/dL 6.0-8.5 2885-2) Albumin (test code = 1751-7) 4.6 g/dL 3.8-4.9 Globulin, Total (test code = 2.4 g/dL 1.5-4.5 15992-4) A/G Ratio (test code = 1.9 1.2-2.2 1759-0) Bilirubin, Total (test code = 0.4 mg/dL 0.0-1.2 1974-09) Alkaline Phosphatase (test 73 IU/L 39-117 code = 6768-6) AST (SGOT) (test code = 20 IU/L 0-40 1920-8) ALT (SGPT) (test code = 16 IU/L 0-44 1742-6) [facility] Description: Comp. Metabolic Panel (2019-10-14 03:52:00 Test Item Value Reference Range Interpretation Comments Glucose (test code = 2345-7) 113 mg/dL 65-99 H BUN (test code = 3094-0) 11 mg/dL 6-24 Creatinine (test code = 0.98 mg/dL 0.76-1.27 2160-0) eGFR If NonAfricn Am (test 89 mL/min/1.73 >59 code = 81466-2) eGFR If Africn Am (test code 103 mL/min/1.73 >59 = 14653-7) BUN/Creatinine Ratio (test 11 - code = 3097-3) Sodium (test code = 2951-2) 141 mmol/L 134-144 Potassium (test code = 4.7 mmol/L 3.5-5.2 2823-3) Chloride (test code = 2075-0) 105 mmol/L 96-106 Carbon Dioxide, Total (test 21 mmol/L 20-29 code = 8-9) Calcium (test code = 04020-0) 9.5 mg/dL 8.7-10.2 Protein, Total (test code = 7.0 g/dL 6.0-8.5 2885-2) Albumin (test code = 1751-7) 4.6 g/dL 3.8-4.9 Globulin, Total (test code = 2.4 g/dL 1.5-4.5 80314-2) A/G Ratio (test code = 1.9 1.2-2.2 1759-0) Bilirubin, Total (test code = 0.4 mg/dL 0.0-1.2 1974-09) Alkaline Phosphatase (test 73 IU/L 39-117 code = 6768-6) AST (SGOT) (test code = 20 IU/L 0-40 0-8) ALT (SGPT) (test code = 16 IU/L 0-44 1742-6) [facility] Description: Comp. Metabolic Panel (14)2019-10-14 03:52:00 Test Item Value Reference Range Interpretation Comments Glucose (test code = 2345-7) 113 mg/dL 65-99 H BUN (test code = 3094-0) 11 mg/dL 6-24 Creatinine (test code = 0.98 mg/dL 0.76-1.27 2160-0) eGFR If NonAfricn Am (test 89 mL/min/1.73 >59 code = 50354-7) eGFR If Africn Am (test code 103 mL/min/1.73 >59 = 54228-5) BUN/Creatinine Ratio (test 11 - code = 3097-3) Sodium (test code = 2951-2) 141 mmol/L 134-144 Potassium (test code = 4.7 mmol/L 3.5-5.2 2823-3) Chloride (test code = 2075-0) 105 mmol/L 96-106 Carbon Dioxide, Total (test 21 mmol/L 20-29 code = 8-9) Calcium (test code = 61012-2) 9.5 mg/dL 8.7-10.2 Protein, Total (test code = 7.0 g/dL 6.0-8.5 2885-2) Albumin (test code = 1751-7) 4.6 g/dL 3.8-4.9 Globulin, Total (test code = 2.4 g/dL 1.5-4.5 92141-4) A/G Ratio (test code = 1.9 1.2-2.2 1759-0) Bilirubin, Total (test code = 0.4 mg/dL 0.0-1.2 1975-2) Alkaline Phosphatase (test 73 IU/L 39-117 code = 6768-6) AST (SGOT) (test code = 20 IU/L 0-40 1920-8) ALT (SGPT) (test code = 16 IU/L 0-44 1742-6) [facility] Description: Comp. Metabolic Panel (14)2019-10-14 03:52:00 Test Item Value Reference Range Interpretation Comments Glucose (test code = 2345-7) 113 mg/dL 65-99 H BUN (test code = 3094-0) 11 mg/dL 6-24 Creatinine (test code = 0.98 mg/dL 0.76-1.27 2160-0) eGFR If NonAfricn Am (test 89 mL/min/1.73 >59 code = 42289-5) eGFR If Africn Am (test code 103 mL/min/1.73 >59 = 00669-9) BUN/Creatinine Ratio (test 11 9- code = 3097-3) Sodium (test code = 2951-2) 141 mmol/L 134-144 Potassium (test code = 4.7 mmol/L 3.5-5.2 2823-3) Chloride (test code = 2075-0) 105 mmol/L 96-106 Carbon Dioxide, Total (test 21 mmol/L 20-29 code = 2028-9) Calcium (test code = 89425-5) 9.5 mg/dL 8.7-10.2 Protein, Total (test code = 7.0 g/dL 6.0-8.5 2885-2) Albumin (test code = 1751-7) 4.6 g/dL 3.8-4.9 Globulin, Total (test code = 2.4 g/dL 1.5-4.5 65882-4) A/G Ratio (test code = 1.9 1.2-2.2 1759-0) Bilirubin, Total (test code = 0.4 mg/dL 0.0-1.2 1975-2) Alkaline Phosphatase (test 73 IU/L 39-117 code = 6768-6) AST (SGOT) (test code = 20 IU/L 0-40 1920-8) ALT (SGPT) (test code = 16 IU/L 0-44 1742-6) [facility] Description: Comp. Metabolic Panel (142019-10-14 03:52:00 Test Item Value Reference Range Interpretation Comments Glucose (test code = 2345-7) 113 mg/dL 65-99 H BUN (test code = 3094-0) 11 mg/dL 6-24 Creatinine (test code = 0.98 mg/dL 0.76-1.27 2160-0) eGFR If NonAfricn Am (test 89 mL/min/1.73 >59 code = 33518-8) eGFR If Africn Am (test code 103 mL/min/1.73 >59 = 53764-2) BUN/Creatinine Ratio (test 05-01 code = 3097-3) Sodium (test code = 2951-2) 141 mmol/L 134-144 Potassium (test code = 4.7 mmol/L 3.5-5.2 2823-3) Chloride (test code = 2075-0) 105 mmol/L 96-106 Carbon Dioxide, Total (test 21 mmol/L 20-29 code = 2028-9) Calcium (test code = 73805-7) 9.5 mg/dL 8.7-10.2 Protein, Total (test code = 7.0 g/dL 6.0-8.5 2885-2) Albumin (test code = 1751-7) 4.6 g/dL 3.8-4.9 Globulin, Total (test code = 2.4 g/dL 1.5-4.5 27219-9) A/G Ratio (test code = 1.9 1.2-2.2 1759-0) Bilirubin, Total (test code = 0.4 mg/dL 0.0-1.2 1975-2) Alkaline Phosphatase (test 73 IU/L 39-117 code = 6768-6) AST (SGOT) (test code = 20 IU/L 0-40 1920-8) ALT (SGPT) (test code = 16 IU/L 0-44 1742-6) [facility] Description: Comp. Metabolic Panel (14)2019-10-14 03:52:00 Test Item Value Reference Range Interpretation Comments Glucose (test code = 2345-7) 113 mg/dL 65-99 H BUN (test code = 3094-0) 11 mg/dL 6-24 Creatinine (test code = 0.98 mg/dL 0.76-1.27 2160-0) eGFR If NonAfricn Am (test 89 mL/min/1.73 >59 code = 34545-9) eGFR If Africn Am (test code 103 mL/min/1.73 >59 = 78325-3) BUN/Creatinine Ratio (test 05-01 code = 3097-3) Sodium (test code = 2951-2) 141 mmol/L 134-144 Potassium (test code = 4.7 mmol/L 3.5-5.2 2823-3) Chloride (test code = 2075-0) 105 mmol/L 96-106 Carbon Dioxide, Total (test 21 mmol/L - code = 2027-) Calcium (test code = 97903-8) 9.5 mg/dL 8.7-10.2 Protein, Total (test code = 7.0 g/dL 6.0-8.5 2885-2) Albumin (test code = 1751-7) 4.6 g/dL 3.8-4.9 Globulin, Total (test code = 2.4 g/dL 1.5-4.5 53138-1) A/G Ratio (test code = 1.9 1.2-2.2 1759-0) Bilirubin, Total (test code = 0.4 mg/dL 0.0-1.2 1975-2) Alkaline Phosphatase (test 73 IU/L 39-117 code = 6768-6) AST (SGOT) (test code = 20 IU/L 0-40 1920-8) ALT (SGPT) (test code = 16 IU/L 0-44 1742-6) [facility] Description: Comp. Metabolic Panel (142019-10-14 03:52:00 Test Item Value Reference Range Interpretation Comments Glucose (test code = 2345-7) 113 mg/dL 65-99 H BUN (test code = 3094-0) 11 mg/dL 6-24 Creatinine (test code = 0.98 mg/dL 0.76-1.27 2160-0) eGFR If NonAfricn Am (test 89 mL/min/1.73 >59 code = 40479-2) eGFR If Africn Am (test code 103 mL/min/1.73 >59 = 19777-2) BUN/Creatinine Ratio (test 11 - code = 3097-3) Sodium (test code = 2951-2) 141 mmol/L 134-144 Potassium (test code = 4.7 mmol/L 3.5-5.2 2823-3) Chloride (test code = 2075-0) 105 mmol/L 96-106 Carbon Dioxide, Total (test 21 mmol/L -29 code = 2027-9) Calcium (test code = 09144-7) 9.5 mg/dL 8.7-10.2 Protein, Total (test code = 7.0 g/dL 6.0-8.5 2885-2) Albumin (test code = 1751-7) 4.6 g/dL 3.8-4.9 Globulin, Total (test code = 2.4 g/dL 1.5-4.5 50023-0) A/G Ratio (test code = 1.9 1.2-2.2 1759-0) Bilirubin, Total (test code = 0.4 mg/dL 0.0-1.2 1975-2) Alkaline Phosphatase (test 73 IU/L 39-117 code = 6768-6) AST (SGOT) (test code = 20 IU/L 0-40 1920-8) ALT (SGPT) (test code = 16 IU/L 0-44 1742-6) [facility] Description: Comp. Metabolic Panel (142019-10-14 03:52:00 Test Item Value Reference Range Interpretation Comments Glucose (test code = 2345-7) 113 mg/dL 65-99 H BUN (test code = 3094-0) 11 mg/dL 6-24 Creatinine (test code = 0.98 mg/dL 0.76-1.27 2160-0) eGFR If NonAfricn Am (test 89 mL/min/1.73 >59 code = 83599-9) eGFR If Africn Am (test code 103 mL/min/1.73 >59 = 74202-0) BUN/Creatinine Ratio (test 11 - code = 3097-3) Sodium (test code = 2951-2) 141 mmol/L 134-144 Potassium (test code = 4.7 mmol/L 3.5-5.2 2823-3) Chloride (test code = 2075-0) 105 mmol/L 96-106 Carbon Dioxide, Total (test 21 mmol/L 20-29 code = 8-9) Calcium (test code = 04266-9) 9.5 mg/dL 8.7-10.2 Protein, Total (test code = 7.0 g/dL 6.0-8.5 2885-2) Albumin (test code = 1751-7) 4.6 g/dL 3.8-4.9 Globulin, Total (test code = 2.4 g/dL 1.5-4.5 99256-2) A/G Ratio (test code = 1.9 1.2-2.2 1759-0) Bilirubin, Total (test code = 0.4 mg/dL 0.0-1.2 1975-2) Alkaline Phosphatase (test 73 IU/L 39-117 code = 6768-6) AST (SGOT) (test code = 20 IU/L 0-40 1920-8) ALT (SGPT) (test code = 16 IU/L 0-44 1742-6) [facility] Description: Comp. Metabolic Panel (14)2019-10-14 03:52:00 Test Item Value Reference Range Interpretation Comments Glucose (test code = 2345-7) 113 mg/dL 65-99 H BUN (test code = 3094-0) 11 mg/dL 6-24 Creatinine (test code = 0.98 mg/dL 0.76-1.27 2160-0) eGFR If NonAfricn Am (test 89 mL/min/1.73 >59 code = 95434-6) eGFR If Africn Am (test code 103 mL/min/1.73 >59 = 82707-9) BUN/Creatinine Ratio (test 11 9-20 code = 3097-3) Sodium (test code = 2951-2) 141 mmol/L 134-144 Potassium (test code = 4.7 mmol/L 3.5-5.2 2823-3) Chloride (test code = 2075-0) 105 mmol/L 96-106 Carbon Dioxide, Total (test 21 mmol/L 20-29 code = 8-9) Calcium (test code = 91414-5) 9.5 mg/dL 8.7-10.2 Protein, Total (test code = 7.0 g/dL 6.0-8.5 2885-2) Albumin (test code = 1751-7) 4.6 g/dL 3.8-4.9 Globulin, Total (test code = 2.4 g/dL 1.5-4.5 51494-3) A/G Ratio (test code = 1.9 1.2-2.2 1759-0) Bilirubin, Total (test code = 0.4 mg/dL 0.0-1.2 1974-09) Alkaline Phosphatase (test 73 IU/L 39-117 code = 6768-6) AST (SGOT) (test code = 20 IU/L 0-40 1920-8) ALT (SGPT) (test code = 16 IU/L 0-44 1742-6) [facility] Description: Comp. Metabolic Panel (142019-10-14 03:52:00 Test Item Value Reference Range Interpretation Comments Glucose (test code = 2345-7) 113 mg/dL 65-99 H BUN (test code = 3094-0) 11 mg/dL 6-24 Creatinine (test code = 0.98 mg/dL 0.76-1.27 2160-0) eGFR If NonAfricn Am (test 89 mL/min/1.73 >59 code = 41085-9) eGFR If Africn Am (test code 103 mL/min/1.73 >59 = 03405-7) BUN/Creatinine Ratio (test 11 -20 code = 3097-3) Sodium (test code = 2951-2) 141 mmol/L 134-144 Potassium (test code = 4.7 mmol/L 3.5-5.2 2823-3) Chloride (test code = 2075-0) 105 mmol/L 96-106 Carbon Dioxide, Total (test 21 mmol/L 20-29 code = 8-9) Calcium (test code = 74578-7) 9.5 mg/dL 8.7-10.2 Protein, Total (test code = 7.0 g/dL 6.0-8.5 2885-2) Albumin (test code = 1751-7) 4.6 g/dL 3.8-4.9 Globulin, Total (test code = 2.4 g/dL 1.5-4.5 24125-1) A/G Ratio (test code = 1.9 1.2-2.2 1759-0) Bilirubin, Total (test code = 0.4 mg/dL 0.0-1.2 1974-09) Alkaline Phosphatase (test 73 IU/L 39-117 code = 6768-6) AST (SGOT) (test code = 20 IU/L 0-40 1920-8) ALT (SGPT) (test code = 16 IU/L 0-44 1742-6) [facility] Description: Comp. Metabolic Panel (14)2019-10-14 03:52:00 Test Item Value Reference Range Interpretation Comments Glucose (test code = 2345-7) 113 mg/dL 65-99 H BUN (test code = 3094-0) 11 mg/dL 6-24 Creatinine (test code = 0.98 mg/dL 0.76-1.27 2160-0) eGFR If NonAfricn Am (test 89 mL/min/1.73 >59 code = 79122-6) eGFR If Africn Am (test code 103 mL/min/1.73 >59 = 37920-0) BUN/Creatinine Ratio (test 11 - code = 3097-3) Sodium (test code = 2951-2) 141 mmol/L 134-144 Potassium (test code = 4.7 mmol/L 3.5-5.2 2823-3) Chloride (test code = 2075-0) 105 mmol/L 96-106 Carbon Dioxide, Total (test 21 mmol/L 20-29 code = 8-9) Calcium (test code = 28087-0) 9.5 mg/dL 8.7-10.2 Protein, Total (test code = 7.0 g/dL 6.0-8.5 2885-2) Albumin (test code = 1751-7) 4.6 g/dL 3.8-4.9 Globulin, Total (test code = 2.4 g/dL 1.5-4.5 88242-7) A/G Ratio (test code = 1.9 1.2-2.2 1759-0) Bilirubin, Total (test code = 0.4 mg/dL 0.0-1.2 1975-2) Alkaline Phosphatase (test 73 IU/L 39-117 code = 6768-6) AST (SGOT) (test code = 20 IU/L 0-40 1920-8) ALT (SGPT) (test code = 16 IU/L 0-44 1742-6) [facility] Description: Comp. Metabolic Panel (14)2019-10-14 03:52:00 Test Item Value Reference Range Interpretation Comments Glucose (test code = 2345-7) 113 mg/dL 65-99 H BUN (test code = 3094-0) 11 mg/dL 6-24 Creatinine (test code = 0.98 mg/dL 0.76-1.27 2160-0) eGFR If NonAfricn Am (test 89 mL/min/1.73 >59 code = 43337-4) eGFR If Africn Am (test code 103 mL/min/1.73 >59 = 45036-5) BUN/Creatinine Ratio (test 11 9-20 code = 3097-3) Sodium (test code = 2951-2) 141 mmol/L 134-144 Potassium (test code = 4.7 mmol/L 3.5-5.2 2823-3) Chloride (test code = 2075-0) 105 mmol/L 96-106 Carbon Dioxide, Total (test 21 mmol/L 20-29 code = 8-9) Calcium (test code = 08544-5) 9.5 mg/dL 8.7-10.2 Protein, Total (test code = 7.0 g/dL 6.0-8.5 2885-2) Albumin (test code = 1751-7) 4.6 g/dL 3.8-4.9 Globulin, Total (test code = 2.4 g/dL 1.5-4.5 89190-4) A/G Ratio (test code = 1.9 1.2-2.2 1759-0) Bilirubin, Total (test code = 0.4 mg/dL 0.0-1.2 1975-2) Alkaline Phosphatase (test 73 IU/L 39-117 code = 6768-6) AST (SGOT) (test code = 20 IU/L 0-40 1920-8) ALT (SGPT) (test code = 16 IU/L 0-44 1742-6) [facility] Description: Comp. Metabolic Panel (142019-10-14 03:52:00 Test Item Value Reference Range Interpretation Comments Glucose (test code = 2345-7) 113 mg/dL 65-99 H BUN (test code = 3094-0) 11 mg/dL 6-24 Creatinine (test code = 0.98 mg/dL 0.76-1.27 2160-0) eGFR If NonAfricn Am (test 89 mL/min/1.73 >59 code = 84471-1) eGFR If Africn Am (test code 103 mL/min/1.73 >59 = 37996-7) BUN/Creatinine Ratio (test 05-01 code = 3097-3) Sodium (test code = 2951-2) 141 mmol/L 134-144 Potassium (test code = 4.7 mmol/L 3.5-5.2 2823-3) Chloride (test code = 2075-0) 105 mmol/L 96-106 Carbon Dioxide, Total (test 21 mmol/L 20-29 code = 8-9) Calcium (test code = 26923-2) 9.5 mg/dL 8.7-10.2 Protein, Total (test code = 7.0 g/dL 6.0-8.5 2885-2) Albumin (test code = 1751-7) 4.6 g/dL 3.8-4.9 Globulin, Total (test code = 2.4 g/dL 1.5-4.5 18763-2) A/G Ratio (test code = 1.9 1.2-2.2 1759-0) Bilirubin, Total (test code = 0.4 mg/dL 0.0-1.2 1975-2) Alkaline Phosphatase (test 73 IU/L 39-117 code = 6768-6) AST (SGOT) (test code = 20 IU/L 0-40 1920-8) ALT (SGPT) (test code = 16 IU/L 0-44 1742-6) [facility] Description: Comp. Metabolic Panel (142019-10-14 03:52:00 Test Item Value Reference Range Interpretation Comments Glucose (test code = 2345-7) 113 mg/dL 65-99 H BUN (test code = 3094-0) 11 mg/dL 6-24 Creatinine (test code = 0.98 mg/dL 0.76-1.27 2160-0) eGFR If NonAfricn Am (test 89 mL/min/1.73 >59 code = 36968-0) eGFR If Africn Am (test code 103 mL/min/1.73 >59 = 13488-4) BUN/Creatinine Ratio (test 05-01 code = 3097-3) Sodium (test code = 2951-2) 141 mmol/L 134-144 Potassium (test code = 4.7 mmol/L 3.5-5.2 2823-3) Chloride (test code = 2075-0) 105 mmol/L 96-106 Carbon Dioxide, Total (test 21 mmol/L - code = 2027-9) Calcium (test code = 62627-2) 9.5 mg/dL 8.7-10.2 Protein, Total (test code = 7.0 g/dL 6.0-8.5 2885-2) Albumin (test code = 1751-7) 4.6 g/dL 3.8-4.9 Globulin, Total (test code = 2.4 g/dL 1.5-4.5 77290-1) A/G Ratio (test code = 1.9 1.2-2.2 1759-0) Bilirubin, Total (test code = 0.4 mg/dL 0.0-1.2 1975-2) Alkaline Phosphatase (test 73 IU/L 39-117 code = 6768-6) AST (SGOT) (test code = 20 IU/L 0-40 1920-8) ALT (SGPT) (test code = 16 IU/L 0-44 1742-6) [facility] Description: Comp. Metabolic Panel (14)2019-10-14 03:52:00 Test Item Value Reference Range Interpretation Comments Glucose (test code = 2345-7) 113 mg/dL 65-99 H BUN (test code = 3094-0) 11 mg/dL 6-24 Creatinine (test code = 0.98 mg/dL 0.76-1.27 2160-0) eGFR If NonAfricn Am (test 89 mL/min/1.73 >59 code = 38900-9) eGFR If Africn Am (test code 103 mL/min/1.73 >59 = 23772-2) BUN/Creatinine Ratio (test 11 - code = 3097-3) Sodium (test code = 2951-2) 141 mmol/L 134-144 Potassium (test code = 4.7 mmol/L 3.5-5.2 2823-3) Chloride (test code = 2075-0) 105 mmol/L 96-106 Carbon Dioxide, Total (test 21 mmol/L -29 code = 2027-9) Calcium (test code = 27432-5) 9.5 mg/dL 8.7-10.2 Protein, Total (test code = 7.0 g/dL 6.0-8.5 2885-2) Albumin (test code = 1751-7) 4.6 g/dL 3.8-4.9 Globulin, Total (test code = 2.4 g/dL 1.5-4.5 46769-1) A/G Ratio (test code = 1.9 1.2-2.2 1759-0) Bilirubin, Total (test code = 0.4 mg/dL 0.0-1.2 1975-2) Alkaline Phosphatase (test 73 IU/L 39-117 code = 6768-6) AST (SGOT) (test code = 20 IU/L 0-40 1920-8) ALT (SGPT) (test code = 16 IU/L 0-44 1742-6) [facility] Description: Hemoglobin A1c/Hemoglobin.total in Blood 2019-09-19 05:42:00 Test Item Value Reference Range Interpretation Comments Hemoglobin A1c (test code 5.9 % 4.8-5.6 H . Prediabetes: 5.7 - = 4548-4) 6.4 Diabetes: > 6.4 Glycemic contro l for adults with suzanne betes: <7.0

P erformed by:
[facility] ()

[facility] Description: Hemoglobin A1c/Hemoglobin.total in Blood 2019-09-19 05:42:00 Test Item Value Reference Range Interpretation Comments Hemoglobin A1c (test code 5.9 % 4.8-5.6 H . Prediabetes: 5.7 - = 4548-4) 6.4 Diabetes: > 6.4 Glycemic contro l for adults with suzanne betes: <7.0

P erformed by:
[facility] ([place])

[facility] Description: Hemoglobin A1c/Hemoglobin.total in Blood 2019-09-19 05:42:00 Test Item Value Reference Range Interpretation Comments Hemoglobin A1c (test code 5.9 % 4.8-5.6 H . Prediabetes: 5.7 - = 4548-4) 6.4 Diabetes: > 6.4 Glycemic contro l for adults with suzanne betes: <7.0

P erformed by:
[facility] ([place])

[facility] Description: Hemoglobin A1c/Hemoglobin.total in Blood 2019-09-19 05:42:00 Test Item Value Reference Range Interpretation Comments Hemoglobin A1c (test code 5.9 % 4.8-5.6 H . Prediabetes: 5.7 - = 4548-4) 6.4 Diabetes: > 6.4 Glycemic contro l for adults with suzanne betes: <7.0

P erformed by:
[facility] ([place])

[facility] Description: Hemoglobin A1c/Hemoglobin.total in Blood 2019-09-19 05:42:00 Test Item Value Reference Range Interpretation Comments Hemoglobin A1c (test code 5.9 % 4.8-5.6 H . Prediabetes: 5.7 - = 4548-4) 6.4 Diabetes: > 6.4 Glycemic contro l for adults with suzanne betes: <7.0

P erformed by:
[facility] ([place])

[facility] Description: Hemoglobin A1c/Hemoglobin.total in Blood 2019-09-19 05:42:00 Test Item Value Reference Range Interpretation Comments Hemoglobin A1c (test code 5.9 % 4.8-5.6 H . Prediabetes: 5.7 - = 4548-4) 6.4 Diabetes: > 6.4 Glycemic contro l for adults with suzanne betes: <7.0

P erformed by:
[facility] ([place])

[facility] Description: Hemoglobin A1c/Hemoglobin.total in Blood 2019-09-19 05:42:00 Test Item Value Reference Range Interpretation Comments Hemoglobin A1c (test code 5.9 % 4.8-5.6 H . Prediabetes: 5.7 - = 4548-4) 6.4 Diabetes: > 6.4 Glycemic contro l for adults with suzanne betes: <7.0

P erformed by:
[facility] ([place])

[facility] Description: Hemoglobin A1c/Hemoglobin.total in Blood 2019-09-19 05:42:00 Test Item Value Reference Range Interpretation Comments Hemoglobin A1c (test code 5.9 % 4.8-5.6 H . Prediabetes: 5.7 - = 4548-4) 6.4 Diabetes: > 6.4 Glycemic contro l for adults with suzanne betes: <7.0

P erformed by:
[facility] ([place])

[facility] Description: Hemoglobin A1c/Hemoglobin.total in Blood 2019-09-19 05:42:00 Test Item Value Reference Range Interpretation Comments Hemoglobin A1c (test code 5.9 % 4.8-5.6 H . Prediabetes: 5.7 - = 4548-4) 6.4 Diabetes: > 6.4 Glycemic contro l for adults with suzanne betes: <7.0Performed by:[facility]orget[facility] ([place]) [facility] Description: Hemoglobin A1c/Hemoglobin.total in Blood 2019-09-19 05:42:00 Test Item Value Reference Range Interpretation Comments Hemoglobin A1c (test code 5.9 % 4.8-5.6 H . Prediabetes: 5.7 - = 4548-4) 6.4 Diabetes: > 6.4 Glycemic contro l for adults with suzanne betes: <7.0Performed by:[facility] Georgette [facility] ([place]) [facility] Description: Hemoglobin A1c/Hemoglobin.total in Blood 2019-09-19 05:42:00 Test Item Value Reference Range Interpretation Comments Hemoglobin A1c (test code 5.9 % 4.8-5.6 H . Prediabetes: 5.7 - = 4548-4) 6.4 Diabetes: > 6.4 Glycemic contro l for adults with suzanne betes: <7.0Performed by:[facility] Georgette mart[facility] ([place]) [facility] Description: Hemoglobin A1c/Hemoglobin.total in Blood 2019-09-19 05:42:00 Test Item Value Reference Range Interpretation Comments Hemoglobin A1c (test code 5.9 % 4.8-5.6 H . Prediabetes: 5.7 - = 4548-4) 6.4 Diabetes: > 6.4 Glycemic contro l for adults with suzanne betes: <7.0Performed by:[facility] Georgette martinez ([place]) [facility] Description: Hemoglobin A1c/Hemoglobin.total in Blood 2019-09-19 05:42:00 Test Item Value Reference Range Interpretation Comments Hemoglobin A1c (test code 5.9 % 4.8-5.6 H . Prediabetes: 5.7 - = 4548-4) 6.4 Diabetes: > 6.4 Glycemic contro l for adults with suzanne betes: <7.0Performed by:[facility] Georgette martinez ([place]) [facility] Description: Hemoglobin A1c/Hemoglobin.total in Blood 2019-09-19 05:42:00 Test Item Value Reference Range Interpretation Comments Hemoglobin A1c (test code 5.9 % 4.8-5.6 H . Prediabetes: 5.7 - = 4548-4) 6.4 Diabetes: > 6.4 Glycemic contro l for adults with suzanne betes: <7.0

P erformed by:
[facility] ()

[facility] Description: Hemoglobin A1c/Hemoglobin.total in Blood 2019-09-19 05:42:00 Test Item Value Reference Range Interpretation Comments Hemoglobin A1c (test code 5.9 % 4.8-5.6 H . Prediabetes: 5.7 - = 4548-4) 6.4 Diabetes: > 6.4 Glycemic contro l for adults with suzanne betes: <7.0Performed by:[facility] Georgette martinez ([place]) [facility] Description: Hemoglobin A1c/Hemoglobin.total in Blood 2019-09-19 05:42:00 Test Item Value Reference Range Interpretation Comments Hemoglobin A1c (test code 5.9 % 4.8-5.6 H . Prediabetes: 5.7 - = 4548-4) 6.4 Diabetes: > 6.4 Glycemic contro l for adults with suzanne betes: <7.0Performed by:[facility] Georgette martienz ([place]) [facility] Description: Hemoglobin A1c/Hemoglobin.total in Blood 2019-09-19 05:42:00 Test Item Value Reference Range Interpretation Comments Hemoglobin A1c (test code 5.9 % 4.8-5.6 H . Prediabetes: 5.7 - = 4548-4) 6.4 Diabetes: > 6.4 Glycemic contro l for adults with suzanne betes: <7.0Performed by:[facility] ([place]) [facility] Description: Hemoglobin A1c/Hemoglobin.total in Blood 2019-09-19 05:42:00 Test Item Value Reference Range Interpretation Comments Hemoglobin A1c (test code 5.9 % 4.8-5.6 H . Prediabetes: 5.7 - = 4548-4) 6.4 Diabetes: > 6.4 Glycemic contro l for adults with suzanne betes: <7.0Performed by:[facility] ([place]) [facility] Description: Hemoglobin A1c/Hemoglobin.total in Blood 2019-09-19 05:42:00 Test Item Value Reference Range Interpretation Comments Hemoglobin A1c (test code 5.9 % 4.8-5.6 H . Prediabetes: 5.7 - = 4548-4) 6.4 Diabetes: > 6.4 Glycemic contro l for adults with suzanne betes: <7.0

P erformed by:
[facility] ([place])

[facility] Description: Hemoglobin A1c/Hemoglobin.total in Blood 2019-09-19 05:42:00 Test Item Value Reference Range Interpretation Comments Hemoglobin A1c (test code 5.9 % 4.8-5.6 H . Prediabetes: 5.7 - = 4548-4) 6.4 Diabetes: > 6.4 Glycemic contro l for adults with suzanne betes: <7.0

P erformed by:
[facility] ()

[facility] Description: Hemoglobin A1c/Hemoglobin.total in Blood 2019-09-19 05:42:00 Test Item Value Reference Range Interpretation Comments Hemoglobin A1c (test code 5.9 % 4.8-5.6 H . Prediabetes: 5.7 - = 4548-4) 6.4 Diabetes: > 6.4 Glycemic contro l for adults with suzanne betes: <7.0

P erformed by:
[facility] ()

[facility] Description: Hemoglobin A1c/Hemoglobin.total in Blood 2019-09-19 05:42:00 Test Item Value Reference Range Interpretation Comments Hemoglobin A1c (test code 5.9 % 4.8-5.6 H . Prediabetes: 5.7 - = 4548-4) 6.4 Diabetes: > 6.4 Glycemic contro l for adults with suzanne betes: <7.0

P erformed by:
[facility] ([place])

[facility] Description: Lipid [id number] 02:34:00 Test Item Value Reference Range Interpretation Comments Cholesterol, Total (test code = 162 mg/dL 443-094 4633-3) Triglycerides (test code = 2571-8) 122 mg/dL 0-149 HDL Cholesterol (test code = 35 mg/dL >39 L 2084-9) VLDL Cholesterol Jose Roberto (test code = 24 mg/dL 5-40 51612-0) LDL Cholesterol Calc (test code = 103 mg/dL 0-99 H 30286-9) Comment: (test code = 15066-1) [facility] Description: Lipid [id number] 02:34:00 Test Item Value Reference Range Interpretation Comments Cholesterol, Total (test code = 162 mg/dL 129-978 6101-3) Triglycerides (test code = 2571-8) 122 mg/dL 0-149 HDL Cholesterol (test code = 35 mg/dL >39 L 2084-9) VLDL Cholesterol Jose Roberto (test code = 24 mg/dL 5-40 97810-8) LDL Cholesterol Calc (test code = 103 mg/dL 0-99 H 50708-7) Comment: (test code = 25006-4) [facility] Description: Lipid [id number] 02:34:00 Test Item Value Reference Range Interpretation Comments Cholesterol, Total (test code = 162 mg/dL 358-536 7490-3) Triglycerides (test code = 2571-8) 122 mg/dL 0-149 HDL Cholesterol (test code = 35 mg/dL >39 L 5-9) VLDL Cholesterol Jose Roberto (test code = 24 mg/dL 5-40 84108-8) LDL Cholesterol Calc (test code = 103 mg/dL 0-99 H 21601-9) Comment: (test code = 53392-1) [facility] Description: Lipid [id number] 02:34:00 Test Item Value Reference Range Interpretation Comments Cholesterol, Total (test code = 162 mg/dL 666-386 4661-3) Triglycerides (test code = 2571-8) 122 mg/dL 0-149 HDL Cholesterol (test code = 35 mg/dL >39 L 2085-9) VLDL Cholesterol Jose Roberto (test code = 24 mg/dL 5-40 04417-7) LDL Cholesterol Calc (test code = 103 mg/dL 0-99 H 60218-3) Comment: (test code = 26679-3) [facility] Description: Lipid [id number] 02:34:00 Test Item Value Reference Range Interpretation Comments Cholesterol, Total (test code = 162 mg/dL 714-001 2676-3) Triglycerides (test code = 2571-8) 122 mg/dL 0-149 HDL Cholesterol (test code = 35 mg/dL >39 L 2085-9) VLDL Cholesterol Jose Roberto (test code = 24 mg/dL 5-40 61538-7) LDL Cholesterol Calc (test code = 103 mg/dL 0-99 H 65544-1) Comment: (test code = 15538-6) [facility] Description: Lipid [id number] 02:34:00 Test Item Value Reference Range Interpretation Comments Cholesterol, Total (test code = 162 mg/dL 659-605 4339-3) Triglycerides (test code = 2571-8) 122 mg/dL 0-149 HDL Cholesterol (test code = 35 mg/dL >39 L 2085-9) VLDL Cholesterol Jose Roberto (test code = 24 mg/dL 5-40 85243-7) LDL Cholesterol Calc (test code = 103 mg/dL 0-99 H 44538-3) Comment: (test code = 80412-9) [facility] Description: Lipid [id number] 02:34:00 Test Item Value Reference Range Interpretation Comments Cholesterol, Total (test code = 162 mg/dL 179-645 6038-3) Triglycerides (test code = 2571-8) 122 mg/dL 0-149 HDL Cholesterol (test code = 35 mg/dL >39 L 2085-9) VLDL Cholesterol Jose Roberto (test code = 24 mg/dL 5-40 42257-0) LDL Cholesterol Calc (test code = 103 mg/dL 0-99 H 55687-9) Comment: (test code = 42027-7) [facility] Description: Lipid [id number] 02:34:00 Test Item Value Reference Range Interpretation Comments Cholesterol, Total (test code = 162 mg/dL 928-318 5485-3) Triglycerides (test code = 2571-8) 122 mg/dL 0-149 HDL Cholesterol (test code = 35 mg/dL >39 L 2085-9) VLDL Cholesterol Jose Roberto (test code = 24 mg/dL 5-40 31510-5) LDL Cholesterol Calc (test code = 103 mg/dL 0-99 H 69383-6) Comment: (test code = 52663-7) [facility] Description: Lipid [id number] 02:34:00 Test Item Value Reference Range Interpretation Comments Cholesterol, Total (test code = 162 mg/dL 766-389 4852-3) Triglycerides (test code = 2571-8) 122 mg/dL 0-149 HDL Cholesterol (test code = 35 mg/dL >39 L 2085-9) VLDL Cholesterol Jose Roberto (test code = 24 mg/dL 5-40 51541-3) LDL Cholesterol Calc (test code = 103 mg/dL 0-99 H 22296-9) Comment: (test code = 08370-3) [facility] Description: Lipid [id number] 02:34:00 Test Item Value Reference Range Interpretation Comments Cholesterol, Total (test code = 162 mg/dL 391-908 8627-3) Triglycerides (test code = 2571-8) 122 mg/dL 0-149 HDL Cholesterol (test code = 35 mg/dL >39 L 2085-9) VLDL Cholesterol Jose Roberto (test code = 24 mg/dL 5-40 13348-9) LDL Cholesterol Calc (test code = 103 mg/dL 0-99 H 01747-9) Comment: (test code = 60611-8) [facility] Description: Lipid [id number] 02:34:00 Test Item Value Reference Range Interpretation Comments Cholesterol, Total (test code = 162 mg/dL 475-267 6165-3) Triglycerides (test code = 2571-8) 122 mg/dL 0-149 HDL Cholesterol (test code = 35 mg/dL >39 L 2085-9) VLDL Cholesterol Jose Roberto (test code = 24 mg/dL 5-40 05261-0) LDL Cholesterol Calc (test code = 103 mg/dL 0-99 H 41370-9) Comment: (test code = 47602-3) [facility] Description: Lipid [id number] 02:34:00 Test Item Value Reference Range Interpretation Comments Cholesterol, Total (test code = 162 mg/dL 434-610 7648-3) Triglycerides (test code = 2571-8) 122 mg/dL 0-149 HDL Cholesterol (test code = 35 mg/dL >39 L 2085-9) VLDL Cholesterol Jose Roberto (test code = 24 mg/dL 5-40 11224-0) LDL Cholesterol Calc (test code = 103 mg/dL 0-99 H 22129-9) Comment: (test code = 02620-3) [facility] Description: Lipid [id number] 02:34:00 Test Item Value Reference Range Interpretation Comments Cholesterol, Total (test code = 162 mg/dL 028-112 7148-3) Triglycerides (test code = 2571-8) 122 mg/dL 0-149 HDL Cholesterol (test code = 35 mg/dL >39 L 2085-9) VLDL Cholesterol Jose Roberto (test code = 24 mg/dL 5-40 18918-7) LDL Cholesterol Calc (test code = 103 mg/dL 0-99 H 96319-9) Comment: (test code = 82254-7) [facility] Description: Lipid [id number] 02:34:00 Test Item Value Reference Range Interpretation Comments Cholesterol, Total (test code = 162 mg/dL 439-203 8576-3) Triglycerides (test code = 2571-8) 122 mg/dL 0-149 HDL Cholesterol (test code = 35 mg/dL >39 L 2085-9) VLDL Cholesterol Jose Roberto (test code = 24 mg/dL 5-40 98469-3) LDL Cholesterol Calc (test code = 103 mg/dL 0-99 H 60264-3) Comment: (test code = 30061-4) [facility] Description: Lipid [id number] 02:34:00 Test Item Value Reference Range Interpretation Comments Cholesterol, Total (test code = 162 mg/dL 622-473 3830-3) Triglycerides (test code = 2571-8) 122 mg/dL 0-149 HDL Cholesterol (test code = 35 mg/dL >39 L 2085-9) VLDL Cholesterol Jose Roberto (test code = 24 mg/dL 5-40 20762-2) LDL Cholesterol Calc (test code = 103 mg/dL 0-99 H 00535-5) Comment: (test code = 85276-4) [facility] Description: Lipid [id number] 02:34:00 Test Item Value Reference Range Interpretation Comments Cholesterol, Total (test code = 162 mg/dL 523-225 0306-3) Triglycerides (test code = 2571-8) 122 mg/dL 0-149 HDL Cholesterol (test code = 35 mg/dL >39 L 2085-9) VLDL Cholesterol Jose Roberto (test code = 24 mg/dL 5-40 99013-4) LDL Cholesterol Calc (test code = 103 mg/dL 0-99 H 22299-1) Comment: (test code = 00594-8) [facility] Description: Lipid [id number] 02:34:00 Test Item Value Reference Range Interpretation Comments Cholesterol, Total (test code = 162 mg/dL 033-151 6265-3) Triglycerides (test code = 2571-8) 122 mg/dL 0-149 HDL Cholesterol (test code = 35 mg/dL >39 L 2085-9) VLDL Cholesterol Jose Roberto (test code = 24 mg/dL 5-40 74177-7) LDL Cholesterol Calc (test code = 103 mg/dL 0-99 H 78271-0) Comment: (test code = 53408-4) [facility] Description: Lipid [id number] 02:34:00 Test Item Value Reference Range Interpretation Comments Cholesterol, Total (test code = 162 mg/dL 720-338 8916-3) Triglycerides (test code = 2571-8) 122 mg/dL 0-149 HDL Cholesterol (test code = 35 mg/dL >39 L 2085-9) VLDL Cholesterol Jose Roberto (test code = 24 mg/dL 5-40 05602-3) LDL Cholesterol Calc (test code = 103 mg/dL 0-99 H 94211-0) Comment: (test code = 08314-3) [facility] Description: Lipid [id number] 02:34:00 Test Item Value Reference Range Interpretation Comments Cholesterol, Total (test code = 162 mg/dL 042-987 8489-3) Triglycerides (test code = 2571-8) 122 mg/dL 0-149 HDL Cholesterol (test code = 35 mg/dL >39 L 2085-9) VLDL Cholesterol Jose Roberto (test code = 24 mg/dL 5-40 86975-6) LDL Cholesterol Calc (test code = 103 mg/dL 0-99 H 83400-3) Comment: (test code = 39478-4) [facility] Description: Lipid [id number] 02:34:00 Test Item Value Reference Range Interpretation Comments Cholesterol, Total (test code = 162 mg/dL 579-716 8196-3) Triglycerides (test code = 2571-8) 122 mg/dL 0-149 HDL Cholesterol (test code = 35 mg/dL >39 L 2085-9) VLDL Cholesterol Jose Roberto (test code = 24 mg/dL 5-40 10402-2) LDL Cholesterol Calc (test code = 103 mg/dL 0-99 H 66858-3) Comment: (test code = 78900-3) [facility] Description: Lipid [id number] 02:34:00 Test Item Value Reference Range Interpretation Comments Cholesterol, Total (test code = 162 mg/dL 811-040 8698-3) Triglycerides (test code = 2571-8) 122 mg/dL 0-149 HDL Cholesterol (test code = 35 mg/dL >39 L 2085-9) VLDL Cholesterol Jose Roberto (test code = 24 mg/dL 5-40 99662-4) LDL Cholesterol Calc (test code = 103 mg/dL 0-99 H 21454-0) Comment: (test code = 31006-9) [facility] Description: Lipid [id number] 02:34:00 Test Item Value Reference Range Interpretation Comments Cholesterol, Total (test code = 162 mg/dL 337-011 8263-3) Triglycerides (test code = 2571-8) 122 mg/dL 0-149 HDL Cholesterol (test code = 35 mg/dL >39 L 2085-9) VLDL Cholesterol Jose Roberto (test code = 24 mg/dL 5-40 05410-9) LDL Cholesterol Calc (test code = 103 mg/dL 0-99 H 26034-0) Comment: (test code = 67895-9) [facility] Description: Comp. Metabolic Panel (14)2019-09-19 02:25:00 Test Item Value Reference Range Interpretation Comments Glucose (test code = 126 mg/dL 65-99 H 2345-7) BUN (test code = 11 mg/dL 6-24 3094-0) Creatinine (test code 0.97 mg/dL 0.76-1.27 = 2160-0) eGFR If NonAfricn Am 91 mL/min/1.73 >59 (test code = 12646-6) eGFR If Africn Am 105 mL/min/1.73 >59 (test code = 52784-2) BUN/Creatinine Ratio 11 9-20 (test code = 3097-3) Sodium (test code = 140 mmol/L 189-623 8285-2) Potassium (test code 4.7 mmol/L 3.5-5.2 = 2823-3) Chloride (test code = 104 mmol/L 96-106 5-0) Carbon Dioxide, Total 21 mmol/L 20-29 (test code = 2027-9) Calcium (test code = 9.7 mg/dL 8.7-10.2 71159-8) Protein, Total (test 7.1 g/dL 6.0-8.5 code = 2885-2) Albumin (test code = 4.5 g/dL 4.0-5.0 Plea se note 1751-7) reference inter magui change
<b r/> Performed by:
[facility] ([place])

Globulin, Total (test 2.6 g/dL 1.5-4.5 code = 07979-5) A/G Ratio (test code 1.7 1.2-2.2 = 1759-0) Bilirubin, Total 0.3 mg/dL 0.0-1.2 (test code = 1975-2) Alkaline Phosphatase 86 IU/L 39-117 (test code = 6768-6) AST (SGOT) (test code 24 IU/L 0-40 = 1920-8) ALT (SGPT) (test code 19 IU/L 0-44 = 1742-6) [facility] Description: Comp. Metabolic Panel (142019-09-19 02:25:00 Test Item Value Reference Range Interpretation Comments Glucose (test code = 126 mg/dL 65-99 H 2345-7) BUN (test code = 11 mg/dL 6-24 3094-0) Creatinine (test code 0.97 mg/dL 0.76-1.27 = 2160-0) eGFR If NonAfricn Am 91 mL/min/1.73 >59 (test code = 77086-5) eGFR If Africn Am 105 mL/min/1.73 >59 (test code = 43590-7) BUN/Creatinine Ratio 11 9-20 (test code = 3097-3) Sodium (test code = 140 mmol/L 549-102 0756-2) Potassium (test code 4.7 mmol/L 3.5-5.2 = 2823-3) Chloride (test code = 104 mmol/L 96-106 2075-0) Carbon Dioxide, Total 21 mmol/L 20-29 (test code = 2027-9) Calcium (test code = 9.7 mg/dL 8.7-10.2 45950-0) Protein, Total (test 7.1 g/dL 6.0-8.5 code = 2885-2) Albumin (test code = 4.5 g/dL 4.0-5.0 Plea se note 1751-7) reference inter magui change
<b r/> Performed by:
[facility] ([place])

Globulin, Total (test 2.6 g/dL 1.5-4.5 code = 61319-4) A/G Ratio (test code 1.7 1.2-2.2 = 1759-0) Bilirubin, Total 0.3 mg/dL 0.0-1.2 (test code = 1975-2) Alkaline Phosphatase 86 IU/L 39-117 (test code = 6768-6) AST (SGOT) (test code 24 IU/L 0-40 = 1920-8) ALT (SGPT) (test code 19 IU/L 0-44 = 1742-6) [facility] Description: Comp. Metabolic Panel (14)2019-09-19 02:25:00 Test Item Value Reference Range Interpretation Comments Glucose (test code = 126 mg/dL 65-99 H 2345-7) BUN (test code = 11 mg/dL 6-24 3094-0) Creatinine (test code 0.97 mg/dL 0.76-1.27 = 2160-0) eGFR If NonAfricn Am 91 mL/min/1.73 >59 (test code = 35819-1) eGFR If Africn Am 105 mL/min/1.73 >59 (test code = 68393-3) BUN/Creatinine Ratio 11 9-20 (test code = 3097-3) Sodium (test code = 140 mmol/L 760-280 8082-2) Potassium (test code 4.7 mmol/L 3.5-5.2 = 2823-3) Chloride (test code = 104 mmol/L 96-106 2075-0) Carbon Dioxide, Total 21 mmol/L 20-29 (test code = 2027-9) Calcium (test code = 9.7 mg/dL 8.7-10.2 29921-2) Protein, Total (test 7.1 g/dL 6.0-8.5 code = 2885-2) Albumin (test code = 4.5 g/dL 4.0-5.0 Plea se note 1751-7) reference inter magui change
<b r/> Performed by:
[facility] ([place])

Globulin, Total (test 2.6 g/dL 1.5-4.5 code = 72940-2) A/G Ratio (test code 1.7 1.2-2.2 = 1759-0) Bilirubin, Total 0.3 mg/dL 0.0-1.2 (test code = 1975-2) Alkaline Phosphatase 86 IU/L 39-117 (test code = 6768-6) AST (SGOT) (test code 24 IU/L 0-40 = 1920-8) ALT (SGPT) (test code 19 IU/L 0-44 = 1742-6) [facility] Description: Comp. Metabolic Panel (2019-09-19 02:25:00 Test Item Value Reference Range Interpretation Comments Glucose (test code = 126 mg/dL 65-99 H 2345-7) BUN (test code = 11 mg/dL 6-24 3094-0) Creatinine (test code 0.97 mg/dL 0.76-1.27 = 2160-0) eGFR If NonAfricn Am 91 mL/min/1.73 >59 (test code = 88026-6) eGFR If Africn Am 105 mL/min/1.73 >59 (test code = 83795-3) BUN/Creatinine Ratio 11 9-20 (test code = 3097-3) Sodium (test code = 140 mmol/L 926-105 6253-2) Potassium (test code 4.7 mmol/L 3.5-5.2 = 2823-3) Chloride (test code = 104 mmol/L 96-106 2075-0) Carbon Dioxide, Total 21 mmol/L 20-29 (test code = 8-9) Calcium (test code = 9.7 mg/dL 8.7-10.2 02117-0) Protein, Total (test 7.1 g/dL 6.0-8.5 code = 2885-2) Albumin (test code = 4.5 g/dL 4.0-5.0 Plea se note 1751-7) reference inter magui change
<b r/> Performed by:
[facility] ([place])

Globulin, Total (test 2.6 g/dL 1.5-4.5 code = 35732-4) A/G Ratio (test code 1.7 1.2-2.2 = 1759-0) Bilirubin, Total 0.3 mg/dL 0.0-1.2 (test code = 1975-2) Alkaline Phosphatase 86 IU/L 39-117 (test code = 6768-6) AST (SGOT) (test code 24 IU/L 0-40 = 1920-8) ALT (SGPT) (test code 19 IU/L 0-44 = 1742-6) [facility] Description: Comp. Metabolic Panel (14)2019-09-19 02:25:00 Test Item Value Reference Range Interpretation Comments Glucose (test code = 126 mg/dL 65-99 H 2345-7) BUN (test code = 11 mg/dL 6-24 3094-0) Creatinine (test code 0.97 mg/dL 0.76-1.27 = 2160-0) eGFR If NonAfricn Am 91 mL/min/1.73 >59 (test code = 58952-3) eGFR If Africn Am 105 mL/min/1.73 >59 (test code = 76798-1) BUN/Creatinine Ratio 11 -20 (test code = 3097-3) Sodium (test code = 140 mmol/L 014-601 6545-2) Potassium (test code 4.7 mmol/L 3.5-5.2 = 2823-3) Chloride (test code = 104 mmol/L 96-106 2075-0) Carbon Dioxide, Total 21 mmol/L 20-29 (test code = 2027-9) Calcium (test code = 9.7 mg/dL 8.7-10.2 84671-4) Protein, Total (test 7.1 g/dL 6.0-8.5 code = 2885-2) Albumin (test code = 4.5 g/dL 4.0-5.0 Plea se note 1751-7) reference inter magui change
<b r/> Performed by:
[facility] ([place])

Globulin, Total (test 2.6 g/dL 1.5-4.5 code = 76597-8) A/G Ratio (test code 1.7 1.2-2.2 = 1759-0) Bilirubin, Total 0.3 mg/dL 0.0-1.2 (test code = 1975-2) Alkaline Phosphatase 86 IU/L 39-117 (test code = 6768-6) AST (SGOT) (test code 24 IU/L 0-40 = 1920-8) ALT (SGPT) (test code 19 IU/L 0-44 = 1742-6) [facility] Description: Comp. Metabolic Panel (14)2019-09-19 02:25:00 Test Item Value Reference Range Interpretation Comments Glucose (test code = 126 mg/dL 65-99 H 2345-7) BUN (test code = 11 mg/dL 6-24 3094-0) Creatinine (test code 0.97 mg/dL 0.76-1.27 = 2160-0) eGFR If NonAfricn Am 91 mL/min/1.73 >59 (test code = 50479-7) eGFR If Africn Am 105 mL/min/1.73 >59 (test code = 49785-6) BUN/Creatinine Ratio 11 9-20 (test code = 3097-3) Sodium (test code = 140 mmol/L 863-769 5508-2) Potassium (test code 4.7 mmol/L 3.5-5.2 = 2823-3) Chloride (test code = 104 mmol/L 96-106 2075-0) Carbon Dioxide, Total 21 mmol/L 20-29 (test code = 8-9) Calcium (test code = 9.7 mg/dL 8.7-10.2 04717-5) Protein, Total (test 7.1 g/dL 6.0-8.5 code = 2885-2) Albumin (test code = 4.5 g/dL 4.0-5.0 Plea se note 1751-7) reference inter magui change
<b r/> Performed by:
[facility] ([place])

Globulin, Total (test 2.6 g/dL 1.5-4.5 code = 07565-8) A/G Ratio (test code 1.7 1.2-2.2 = 1759-0) Bilirubin, Total 0.3 mg/dL 0.0-1.2 (test code = 1975-2) Alkaline Phosphatase 86 IU/L 39-117 (test code = 6768-6) AST (SGOT) (test code 24 IU/L 0-40 = 1920-8) ALT (SGPT) (test code 19 IU/L 0-44 = 1742-6) [facility] Description: Comp. Metabolic Panel (142019-09-19 02:25:00 Test Item Value Reference Range Interpretation Comments Glucose (test code = 126 mg/dL 65-99 H 2345-7) BUN (test code = 11 mg/dL 6-24 3094-0) Creatinine (test code 0.97 mg/dL 0.76-1.27 = 2160-0) eGFR If NonAfricn Am 91 mL/min/1.73 >59 (test code = 67269-0) eGFR If Africn Am 105 mL/min/1.73 >59 (test code = 51935-1) BUN/Creatinine Ratio 11 -20 (test code = 3097-3) Sodium (test code = 140 mmol/L 675-313 6144-2) Potassium (test code 4.7 mmol/L 3.5-5.2 = 2823-3) Chloride (test code = 104 mmol/L 96-106 5-0) Carbon Dioxide, Total 21 mmol/L 20-29 (test code = 2027-9) Calcium (test code = 9.7 mg/dL 8.7-10.2 54379-9) Protein, Total (test 7.1 g/dL 6.0-8.5 code = 2885-2) Albumin (test code = 4.5 g/dL 4.0-5.0 Plea se note 1751-7) reference inter magui change
<b r/> Performed by:
[facility] ([place])

Globulin, Total (test 2.6 g/dL 1.5-4.5 code = 99674-9) A/G Ratio (test code 1.7 1.2-2.2 = 1759-0) Bilirubin, Total 0.3 mg/dL 0.0-1.2 (test code = 1974-2) Alkaline Phosphatase 86 IU/L 39-117 (test code = 6768-6) AST (SGOT) (test code 24 IU/L 0-40 = 1920-8) ALT (SGPT) (test code 19 IU/L 0-44 = 1742-6) [facility] Description: Comp. Metabolic Panel (14)2019-09-19 02:25:00 Test Item Value Reference Range Interpretation Comments Glucose (test code = 126 mg/dL 65-99 H 2345-7) BUN (test code = 11 mg/dL 6-24 3094-0) Creatinine (test code 0.97 mg/dL 0.76-1.27 = 2160-0) eGFR If NonAfricn Am 91 mL/min/1.73 >59 (test code = 30270-2) eGFR If Africn Am 105 mL/min/1.73 >59 (test code = 85947-4) BUN/Creatinine Ratio 11 9-20 (test code = 3097-3) Sodium (test code = 140 mmol/L 214-858 3097-2) Potassium (test code 4.7 mmol/L 3.5-5.2 = 2823-3) Chloride (test code = 104 mmol/L 96-106 5-0) Carbon Dioxide, Total 21 mmol/L 20-29 (test code = 2027-9) Calcium (test code = 9.7 mg/dL 8.7-10.2 44422-6) Protein, Total (test 7.1 g/dL 6.0-8.5 code = 2885-2) Albumin (test code = 4.5 g/dL 4.0-5.0 Ple ase note 1751-7) reference inter magui change
<b r/> Performed by:
[facility] ([place])

Globulin, Total (test 2.6 g/dL 1.5-4.5 code = 30381-5) A/G Ratio (test code 1.7 1.2-2.2 = 1759-0) Bilirubin, Total 0.3 mg/dL 0.0-1.2 (test code = 1975-2) Alkaline Phosphatase 86 IU/L 39-117 (test code = 6768-6) AST (SGOT) (test code 24 IU/L 0-40 = 1920-8) ALT (SGPT) (test code 19 IU/L 0-44 = 1742-6) [facility] Description: Comp. Metabolic Panel (14)2019-09-19 02:25:00 Test Item Value Reference Range Interpretation Comments Glucose (test code = 126 mg/dL 65-99 H 2345-7) BUN (test code = 11 mg/dL 6-24 3094-0) Creatinine (test code 0.97 mg/dL 0.76-1.27 = 2160-0) eGFR If NonAfricn Am 91 mL/min/1.73 >59 (test code = 76878-2) eGFR If Africn Am 105 mL/min/1.73 >59 (test code = 67625-7) BUN/Creatinine Ratio 11 9-20 (test code = 3097-3) Sodium (test code = 140 mmol/L 379-641 8085-2) Potassium (test code 4.7 mmol/L 3.5-5.2 = 2823-3) Chloride (test code = 104 mmol/L 96-106 5-0) Carbon Dioxide, Total 21 mmol/L 20-29 (test code = 2027-) Calcium (test code = 9.7 mg/dL 8.7-10.2 25138-7) Protein, Total (test 7.1 g/dL 6.0-8.5 code = 2885-2) Albumin (test code = 4.5 g/dL 4.0-5.0 Plea se note 1751-7) reference inter magui changePerform ed by:[facility] ([place]) Globulin, Total (test 2.6 g/dL 1.5-4.5 code = 33829-2) A/G Ratio (test code 1.7 1.2-2.2 = 1759-0) Bilirubin, Total 0.3 mg/dL 0.0-1.2 (test code = 1975-2) Alkaline Phosphatase 86 IU/L 39-117 (test code = 6768-6) AST (SGOT) (test code 24 IU/L 0-40 = 1920-8) ALT (SGPT) (test code 19 IU/L 0-44 = 1742-6) [facility] Description: Comp. Metabolic Panel (14)2019-09-19 02:25:00 Test Item Value Reference Range Interpretation Comments Glucose (test code = 126 mg/dL 65-99 H 2345-7) BUN (test code = 11 mg/dL 6-24 3094-0) Creatinine (test code 0.97 mg/dL 0.76-1.27 = 2160-0) eGFR If NonAfricn Am 91 mL/min/1.73 >59 (test code = 03787-2) eGFR If Africn Am 105 mL/min/1.73 >59 (test code = 55973-4) BUN/Creatinine Ratio 11 9-20 (test code = 3097-3) Sodium (test code = 140 mmol/L 326-629 5390-2) Potassium (test code 4.7 mmol/L 3.5-5.2 = 2823-3) Chloride (test code = 104 mmol/L 96-106 5-0) Carbon Dioxide, Total 21 mmol/L 20-29 (test code = 2027-) Calcium (test code = 9.7 mg/dL 8.7-10.2 08634-3) Protein, Total (test 7.1 g/dL 6.0-8.5 code = 2885-2) Albumin (test code = 4.5 g/dL 4.0-5.0 Plea se note 1751-7) reference inter magui changePerform ed by:[facility] [place] ([place]) Globulin, Total (test 2.6 g/dL 1.5-4.5 code = 17931-7) A/G Ratio (test code 1.7 1.2-2.2 = 1759-0) Bilirubin, Total 0.3 mg/dL 0.0-1.2 (test code = 1975-2) Alkaline Phosphatase 86 IU/L 39-117 (test code = 6768-6) AST (SGOT) (test code 24 IU/L 0-40 = 1920-8) ALT (SGPT) (test code 19 IU/L 0-44 = 1742-6) [facility] Description: Comp. Metabolic Panel (14)2019-09-19 02:25:00 Test Item Value Reference Range Interpretation Comments Glucose (test code = 126 mg/dL 65-99 H 2345-7) BUN (test code = 11 mg/dL 6-24 3094-0) Creatinine (test code 0.97 mg/dL 0.76-1.27 = 2160-0) eGFR If NonAfricn Am 91 mL/min/1.73 >59 (test code = 20130-4) eGFR If Africn Am 105 mL/min/1.73 >59 (test code = 40521-9) BUN/Creatinine Ratio 11 9-20 (test code = 3097-3) Sodium (test code = 140 mmol/L 828-501 2811-2) Potassium (test code 4.7 mmol/L 3.5-5.2 = 2823-3) Chloride (test code = 104 mmol/L 96-106 5-0) Carbon Dioxide, Total 21 mmol/L 20-29 (test code = 2027-) Calcium (test code = 9.7 mg/dL 8.7-10.2 15984-2) Protein, Total (test 7.1 g/dL 6.0-8.5 code = 2885-2) Albumin (test code = 4.5 g/dL 4.0-5.0 Plea se note 1751-7) reference inter magui changePerform ed by:[facility] [place] ([facility]) Globulin, Total (test 2.6 g/dL 1.5-4.5 code = 15454-0) A/G Ratio (test code 1.7 1.2-2.2 = 1759-0) Bilirubin, Total 0.3 mg/dL 0.0-1.2 (test code = 1975-2) Alkaline Phosphatase 86 IU/L 39-117 (test code = 6768-6) AST (SGOT) (test code 24 IU/L 0-40 = 1920-8) ALT (SGPT) (test code 19 IU/L 0-44 = 1742-6) [facility] Description: Comp. Metabolic Panel (14)2019-09-19 02:25:00 Test Item Value Reference Range Interpretation Comments Glucose (test code = 126 mg/dL 65-99 H 2345-7) BUN (test code = 11 mg/dL 6-24 3094-0) Creatinine (test code 0.97 mg/dL 0.76-1.27 = 2160-0) eGFR If NonAfricn Am 91 mL/min/1.73 >59 (test code = 50982-0) eGFR If Africn Am 105 mL/min/1.73 >59 (test code = 78769-0) BUN/Creatinine Ratio 11 9-20 (test code = 3097-3) Sodium (test code = 140 mmol/L 066-989 1788-2) Potassium (test code 4.7 mmol/L 3.5-5.2 = 2823-3) Chloride (test code = 104 mmol/L 96-106 2075-0) Carbon Dioxide, Total 21 mmol/L 20-29 (test code = 2027-9) Calcium (test code = 9.7 mg/dL 8.7-10.2 66315-8) Protein, Total (test 7.1 g/dL 6.0-8.5 code = 2885-2) Albumin (test code = 4.5 g/dL 4.0-5.0 Plea se note 1751-7) reference inter magui changePerform ed by:[facility] ([place]) Globulin, Total (test 2.6 g/dL 1.5-4.5 code = 51531-1) A/G Ratio (test code 1.7 1.2-2.2 = 1759-0) Bilirubin, Total 0.3 mg/dL 0.0-1.2 (test code = 1975-2) Alkaline Phosphatase 86 IU/L 39-117 (test code = 6768-6) AST (SGOT) (test code 24 IU/L 0-40 = 1920-8) ALT (SGPT) (test code 19 IU/L 0-44 = 1742-6) [facility] Description: Comp. Metabolic Panel (14)2019-09-19 02:25:00 Test Item Value Reference Range Interpretation Comments Glucose (test code = 126 mg/dL 65-99 H 2345-7) BUN (test code = 11 mg/dL 6-24 3094-0) Creatinine (test code 0.97 mg/dL 0.76-1.27 = 2160-0) eGFR If NonAfricn Am 91 mL/min/1.73 >59 (test code = 13492-2) eGFR If Africn Am 105 mL/min/1.73 >59 (test code = 22233-2) BUN/Creatinine Ratio 11 9-20 (test code = 3097-3) Sodium (test code = 140 mmol/L 251-894 8508-2) Potassium (test code 4.7 mmol/L 3.5-5.2 = 2823-3) Chloride (test code = 104 mmol/L 96-106 2075-0) Carbon Dioxide, Total 21 mmol/L 20-29 (test code = 8-9) Calcium (test code = 9.7 mg/dL 8.7-10.2 22333-6) Protein, Total (test 7.1 g/dL 6.0-8.5 code = 2885-2) Albumin (test code = 4.5 g/dL 4.0-5.0 Plea se note 1751-7) reference inter magui changePerform ed by:[facility] ([place]) Globulin, Total (test 2.6 g/dL 1.5-4.5 code = 67978-7) A/G Ratio (test code 1.7 1.2-2.2 = 1759-0) Bilirubin, Total 0.3 mg/dL 0.0-1.2 (test code = 1975-2) Alkaline Phosphatase 86 IU/L 39-117 (test code = 6768-6) AST (SGOT) (test code 24 IU/L 0-40 = 1920-8) ALT (SGPT) (test code 19 IU/L 0-44 = 1742-6) [facility] Description: Comp. Metabolic Panel (14)2019-09-19 02:25:00 Test Item Value Reference Range Interpretation Comments Glucose (test code = 126 mg/dL 65-99 H 2345-7) BUN (test code = 11 mg/dL 6-24 3094-0) Creatinine (test code 0.97 mg/dL 0.76-1.27 = 2160-0) eGFR If NonAfricn Am 91 mL/min/1.73 >59 (test code = 27250-5) eGFR If Africn Am 105 mL/min/1.73 >59 (test code = 36899-9) BUN/Creatinine Ratio 11 9-20 (test code = 3097-3) Sodium (test code = 140 mmol/L 589-796 8362-2) Potassium (test code 4.7 mmol/L 3.5-5.2 = 2823-3) Chloride (test code = 104 mmol/L 96-106 2075-0) Carbon Dioxide, Total 21 mmol/L 20-29 (test code = 8-9) Calcium (test code = 9.7 mg/dL 8.7-10.2 11526-3) Protein, Total (test 7.1 g/dL 6.0-8.5 code = 2885-2) Albumin (test code = 4.5 g/dL 4.0-5.0 Plea se note 1751-7) reference inter magui change
<b r/> Performed by:
[facility] ([place])

Globulin, Total (test 2.6 g/dL 1.5-4.5 code = 21573-4) A/G Ratio (test code 1.7 1.2-2.2 = 1759-0) Bilirubin, Total 0.3 mg/dL 0.0-1.2 (test code = 1974-) Alkaline Phosphatase 86 IU/L 39-117 (test code = 6768-6) AST (SGOT) (test code 24 IU/L 0-40 = 1920-8) ALT (SGPT) (test code 19 IU/L 0-44 = 1742-6) [facility] Description: Comp. Metabolic Panel (14)2019-09-19 02:25:00 Test Item Value Reference Range Interpretation Comments Glucose (test code = 126 mg/dL 65-99 H 2345-7) BUN (test code = 11 mg/dL 6-24 3094-0) Creatinine (test code 0.97 mg/dL 0.76-1.27 = 2160-0) eGFR If NonAfricn Am 91 mL/min/1.73 >59 (test code = 40931-9) eGFR If Africn Am 105 mL/min/1.73 >59 (test code = 29638-3) BUN/Creatinine Ratio 11 9-20 (test code = 3097-3) Sodium (test code = 140 mmol/L 599-805 1300-2) Potassium (test code 4.7 mmol/L 3.5-5.2 = 2823-3) Chloride (test code = 104 mmol/L 96-106 2075-0) Carbon Dioxide, Total 21 mmol/L 20-29 (test code = 2027-9) Calcium (test code = 9.7 mg/dL 8.7-10.2 13483-4) Protein, Total (test 7.1 g/dL 6.0-8.5 code = 2885-2) Albumin (test code = 4.5 g/dL 4.0-5.0 Plea se note 1751-7) reference inter magui changePerform ed by:[facility] ([place]) Globulin, Total (test 2.6 g/dL 1.5-4.5 code = 49520-3) A/G Ratio (test code 1.7 1.2-2.2 = 1759-0) Bilirubin, Total 0.3 mg/dL 0.0-1.2 (test code = 1974-) Alkaline Phosphatase 86 IU/L 39-117 (test code = 6768-6) AST (SGOT) (test code 24 IU/L 0-40 = 1920-8) ALT (SGPT) (test code 19 IU/L 0-44 = 1742-6) [facility] Description: Comp. Metabolic Panel (14)2019-09-19 02:25:00 Test Item Value Reference Range Interpretation Comments Glucose (test code = 126 mg/dL 65-99 H 2345-7) BUN (test code = 11 mg/dL 6-24 3094-0) Creatinine (test code 0.97 mg/dL 0.76-1.27 = 2160-0) eGFR If NonAfricn Am 91 mL/min/1.73 >59 (test code = 89732-9) eGFR If Africn Am 105 mL/min/1.73 >59 (test code = 17468-3) BUN/Creatinine Ratio 11 9-20 (test code = 3097-3) Sodium (test code = 140 mmol/L 202-870 3533-2) Potassium (test code 4.7 mmol/L 3.5-5.2 = 2823-3) Chloride (test code = 104 mmol/L 96-106 2075-0) Carbon Dioxide, Total 21 mmol/L 20-29 (test code = 8-9) Calcium (test code = 9.7 mg/dL 8.7-10.2 85844-8) Protein, Total (test 7.1 g/dL 6.0-8.5 code = 2885-2) Albumin (test code = 4.5 g/dL 4.0-5.0 Plea se note 1751-7) reference inter magui changePerform ed by:[facility] ([place]) Globulin, Total (test 2.6 g/dL 1.5-4.5 code = 65262-1) A/G Ratio (test code 1.7 1.2-2.2 = 1759-0) Bilirubin, Total 0.3 mg/dL 0.0-1.2 (test code = 1975-2) Alkaline Phosphatase 86 IU/L 39-117 (test code = 6768-6) AST (SGOT) (test code 24 IU/L 0-40 = 1920-8) ALT (SGPT) (test code 19 IU/L 0-44 = 1742-6) [facility] Description: Comp. Metabolic Panel (14)2019-09-19 02:25:00 Test Item Value Reference Range Interpretation Comments Glucose (test code = 126 mg/dL 65-99 H 2345-7) BUN (test code = 11 mg/dL 6-24 3094-0) Creatinine (test code 0.97 mg/dL 0.76-1.27 = 2160-0) eGFR If NonAfricn Am 91 mL/min/1.73 >59 (test code = 92303-7) eGFR If Africn Am 105 mL/min/1.73 >59 (test code = 10191-9) BUN/Creatinine Ratio 11 9-20 (test code = 3097-3) Sodium (test code = 140 mmol/L 433-207 7839-2) Potassium (test code 4.7 mmol/L 3.5-5.2 = 2823-3) Chloride (test code = 104 mmol/L 96-106 2075-0) Carbon Dioxide, Total 21 mmol/L 20-29 (test code = 2027-9) Calcium (test code = 9.7 mg/dL 8.7-10.2 14543-2) Protein, Total (test 7.1 g/dL 6.0-8.5 code = 2885-2) Albumin (test code = 4.5 g/dL 4.0-5.0 Ple ase note 1751-7) reference inter magui changePerform ed by:[facility] ([place]) Globulin, Total (test 2.6 g/dL 1.5-4.5 code = 12694-9) A/G Ratio (test code 1.7 1.2-2.2 = 1759-0) Bilirubin, Total 0.3 mg/dL 0.0-1.2 (test code = 1975-2) Alkaline Phosphatase 86 IU/L 39-117 (test code = 6768-6) AST (SGOT) (test code 24 IU/L 0-40 = 1920-8) ALT (SGPT) (test code 19 IU/L 0-44 = 1742-6) [facility] Description: Comp. Metabolic Panel (14)2019-09-19 02:25:00 Test Item Value Reference Range Interpretation Comments Glucose (test code = 126 mg/dL 65-99 H 2345-7) BUN (test code = 11 mg/dL 6-24 3094-0) Creatinine (test code 0.97 mg/dL 0.76-1.27 = 2160-0) eGFR If NonAfricn Am 91 mL/min/1.73 >59 (test code = 38137-4) eGFR If Africn Am 105 mL/min/1.73 >59 (test code = 49542-2) BUN/Creatinine Ratio 11 9-20 (test code = 3097-3) Sodium (test code = 140 mmol/L 433-272 1998-2) Potassium (test code 4.7 mmol/L 3.5-5.2 = 2823-3) Chloride (test code = 104 mmol/L 96-106 2075-0) Carbon Dioxide, Total 21 mmol/L 20-29 (test code = 2027-9) Calcium (test code = 9.7 mg/dL 8.7-10.2 65553-2) Protein, Total (test 7.1 g/dL 6.0-8.5 code = 2885-2) Albumin (test code = 4.5 g/dL 4.0-5.0 Plea se note 1751-7) reference inter magui changePerform ed by:[facility] ([place]) Globulin, Total (test 2.6 g/dL 1.5-4.5 code = 87991-2) A/G Ratio (test code 1.7 1.2-2.2 = 1759-0) Bilirubin, Total 0.3 mg/dL 0.0-1.2 (test code = 1975-2) Alkaline Phosphatase 86 IU/L 39-117 (test code = 6768-6) AST (SGOT) (test code 24 IU/L 0-40 = 1920-8) ALT (SGPT) (test code 19 IU/L 0-44 = 1742-6) [facility] Description: Comp. Metabolic Panel (14)2019-09-19 02:25:00 Test Item Value Reference Range Interpretation Comments Glucose (test code = 126 mg/dL 65-99 H 2345-7) BUN (test code = 11 mg/dL 6-24 3094-0) Creatinine (test code 0.97 mg/dL 0.76-1.27 = 2160-0) eGFR If NonAfricn Am 91 mL/min/1.73 >59 (test code = 84042-1) eGFR If Africn Am 105 mL/min/1.73 >59 (test code = 58669-3) BUN/Creatinine Ratio 11 9-20 (test code = 3097-3) Sodium (test code = 140 mmol/L 706-656 0965-2) Potassium (test code 4.7 mmol/L 3.5-5.2 = 2823-3) Chloride (test code = 104 mmol/L 96-106 2075-0) Carbon Dioxide, Total 21 mmol/L 20-29 (test code = 8-9) Calcium (test code = 9.7 mg/dL 8.7-10.2 13572-3) Protein, Total (test 7.1 g/dL 6.0-8.5 code = 2885-2) Albumin (test code = 4.5 g/dL 4.0-5.0 Plea se note 1751-7) reference inter magui change
<b r/> Performed by:
[facility] ()

Globulin, Total (test 2.6 g/dL 1.5-4.5 code = 32375-7) A/G Ratio (test code 1.7 1.2-2.2 = 1759-0) Bilirubin, Total 0.3 mg/dL 0.0-1.2 (test code = 1975-2) Alkaline Phosphatase 86 IU/L 39-117 (test code = 6768-6) AST (SGOT) (test code 24 IU/L 0-40 = 1920-8) ALT (SGPT) (test code 19 IU/L 0-44 = 1742-6) [facility] Description: Comp. Metabolic Panel (142019-09-19 02:25:00 Test Item Value Reference Range Interpretation Comments Glucose (test code = 126 mg/dL 65-99 H 2345-7) BUN (test code = 11 mg/dL 6-24 3094-0) Creatinine (test code 0.97 mg/dL 0.76-1.27 = 2160-0) eGFR If NonAfricn Am 91 mL/min/1.73 >59 (test code = 39153-3) eGFR If Africn Am 105 mL/min/1.73 >59 (test code = 92461-6) BUN/Creatinine Ratio 11 9-20 (test code = 3097-3) Sodium (test code = 140 mmol/L 005-824 3762-2) Potassium (test code 4.7 mmol/L 3.5-5.2 = 2823-3) Chloride (test code = 104 mmol/L 96-106 2075-0) Carbon Dioxide, Total 21 mmol/L 20-29 (test code = 8-9) Calcium (test code = 9.7 mg/dL 8.7-10.2 34527-1) Protein, Total (test 7.1 g/dL 6.0-8.5 code = 2885-2) Albumin (test code = 4.5 g/dL 4.0-5.0 Plea se note 1751-7) reference inter magui change
<b r/> Performed by:
[facility] ([facility])

Globulin, Total (test 2.6 g/dL 1.5-4.5 code = 09747-9) A/G Ratio (test code 1.7 1.2-2.2 = 1759-0) Bilirubin, Total 0.3 mg/dL 0.0-1.2 (test code = 1975-2) Alkaline Phosphatase 86 IU/L 39-117 (test code = 6768-6) AST (SGOT) (test code 24 IU/L 0-40 = 1920-8) ALT (SGPT) (test code 19 IU/L 0-44 = 1742-6) [facility] Description: Comp. Metabolic Panel (14)2019-09-19 02:25:00 Test Item Value Reference Range Interpretation Comments Glucose (test code = 126 mg/dL 65-99 H 2345-7) BUN (test code = 11 mg/dL 6-24 3094-0) Creatinine (test code 0.97 mg/dL 0.76-1.27 = 2160-0) eGFR If NonAfricn Am 91 mL/min/1.73 >59 (test code = 05276-3) eGFR If Africn Am 105 mL/min/1.73 >59 (test code = 15162-2) BUN/Creatinine Ratio 11 -20 (test code = 3097-3) Sodium (test code = 140 mmol/L 950-225 7043-2) Potassium (test code 4.7 mmol/L 3.5-5.2 = 2823-3) Chloride (test code = 104 mmol/L 96-106 2075-0) Carbon Dioxide, Total 21 mmol/L 20-29 (test code = 8-9) Calcium (test code = 9.7 mg/dL 8.7-10.2 98966-9) Protein, Total (test 7.1 g/dL 6.0-8.5 code = 2885-2) Albumin (test code = 4.5 g/dL 4.0-5.0 Ple ase note 1751-7) reference inter magui change
<b r/> Performed by:
[facility] ([place])

Globulin, Total (test 2.6 g/dL 1.5-4.5 code = 72723-8) A/G Ratio (test code 1.7 1.2-2.2 = 1759-0) Bilirubin, Total 0.3 mg/dL 0.0-1.2 (test code = 1975-2) Alkaline Phosphatase 86 IU/L 39-117 (test code = 6768-6) AST (SGOT) (test code 24 IU/L 0-40 = 1920-8) ALT (SGPT) (test code 19 IU/L 0-44 = 1742-6) [facility] Description: Comp. Metabolic Panel (14)2019-09-19 02:25:00 Test Item Value Reference Range Interpretation Comments Glucose (test code = 126 mg/dL 65-99 H 2345-7) BUN (test code = 11 mg/dL 6-24 3094-0) Creatinine (test code 0.97 mg/dL 0.76-1.27 = 2160-0) eGFR If NonAfricn Am 91 mL/min/1.73 >59 (test code = 31167-6) eGFR If Africn Am 105 mL/min/1.73 >59 (test code = 90418-4) BUN/Creatinine Ratio 11 9-20 (test code = 3097-3) Sodium (test code = 140 mmol/L 000-228 4736-2) Potassium (test code 4.7 mmol/L 3.5-5.2 = 2823-3) Chloride (test code = 104 mmol/L 96-106 5-0) Carbon Dioxide, Total 21 mmol/L 20-29 (test code = 8-9) Calcium (test code = 9.7 mg/dL 8.7-10.2 41319-5) Protein, Total (test 7.1 g/dL 6.0-8.5 code = 2885-2) Albumin (test code = 4.5 g/dL 4.0-5.0 Plea se note 1751-7) reference inter magui change
<b r/> Performed by:
[facility] ([place])

Globulin, Total (test 2.6 g/dL 1.5-4.5 code = 23452-0) A/G Ratio (test code 1.7 1.2-2.2 = 1759-0) Bilirubin, Total 0.3 mg/dL 0.0-1.2 (test code = 1975-2) Alkaline Phosphatase 86 IU/L 39-117 (test code = 6768-6) AST (SGOT) (test code 24 IU/L 0-40 = 1920-8) ALT (SGPT) (test code 19 IU/L 0-44 = 1742-6) [facility] Description: Chlamydia/GC Voaqhmdisdzgx0965-81-48 23:32:00 Test Item Value Reference Range Interpretation Comments Chlamydia trachomatis, JESSE (test Negative Negative code = 85533-8) Neisseria gonorrhoeae, JESSE (test Negative Negative code = 04155-4) [facility] Description: Chlamydia/GC Uoxjstoimekol3713-56-65 23:32:00 Test Item Value Reference Range Interpretation Comments Chlamydia trachomatis, JESSE (test Negative Negative code = 20884-7) Neisseria gonorrhoeae, JESSE (test Negative Negative code = 42764-6) [facility] Description: Chlamydia/GC Rkoyntdpbtkak3047-06-34 23:32:00 Test Item Value Reference Range Interpretation Comments Chlamydia trachomatis, JESSE (test Negative Negative code = 31844-7) Neisseria gonorrhoeae, JESSE (test Negative Negative code = 85271-7) [facility] Description: Chlamydia/GC Aiobcgvmboxbb6512-36-77 23:32:00 Test Item Value Reference Range Interpretation Comments Chlamydia trachomatis, JESSE (test Negative Negative code = 64070-3) Neisseria gonorrhoeae, JESSE (test Negative Negative code = 67788-7) [facility] Description: Chlamydia/GC Ihlqtlmhgqmew1067-16-42 23:32:00 Test Item Value Reference Range Interpretation Comments Chlamydia trachomatis, JESSE (test Negative Negative code = 34858-6) Neisseria gonorrhoeae, JESSE (test Negative Negative code = 09779-7) [facility] Description: Chlamydia/GC Wzahlzmwvtkst8369-27-77 23:32:00 Test Item Value Reference Range Interpretation Comments Chlamydia trachomatis, JESSE (test Negative Negative code = 71665-1) Neisseria gonorrhoeae, JESSE (test Negative Negative code = 85992-5) [facility] Description: Chlamydia/GC Brwxurzempagb3352-29-05 23:32:00 Test Item Value Reference Range Interpretation Comments Chlamydia trachomatis, JESSE (test Negative Negative code = 77581-9) Neisseria gonorrhoeae, JESSE (test Negative Negative code = 50904-1) [facility] Description: Chlamydia/GC Esztwfpjycngm2410-24-02 23:32:00 Test Item Value Reference Range Interpretation Comments Chlamydia trachomatis, JESSE (test Negative Negative code = 72220-9) Neisseria gonorrhoeae, JESSE (test Negative Negative code = 67277-2) [facility] Description: Chlamydia/GC Mvnpypxtxamlt9934-03-06 23:32:00 Test Item Value Reference Range Interpretation Comments Chlamydia trachomatis, JESSE (test Negative Negative code = 28669-1) Neisseria gonorrhoeae, JESSE (test Negative Negative code = 69499-4) [facility] Description: Chlamydia/GC Zzvimttfdcyof5861-61-01 23:32:00 Test Item Value Reference Range Interpretation Comments Chlamydia trachomatis, JESSE (test Negative Negative code = 76630-0) Neisseria gonorrhoeae, JESSE (test Negative Negative code = 93060-7) [facility] Description: Chlamydia/GC Ahqlmoavszouk4303-92-84 23:32:00 Test Item Value Reference Range Interpretation Comments Chlamydia trachomatis, JESSE (test Negative Negative code = 72090-6) Neisseria gonorrhoeae, JESSE (test Negative Negative code = 97163-0) [facility] Description: Chlamydia/GC Gdlfhtpousezq8111-24-16 23:32:00 Test Item Value Reference Range Interpretation Comments Chlamydia trachomatis, JESSE (test Negative Negative code = 76761-0) Neisseria gonorrhoeae, JESSE (test Negative Negative code = 02507-6) [facility] Description: Chlamydia/GC Wbgoxcygkfppa6467-26-80 23:32:00 Test Item Value Reference Range Interpretation Comments Chlamydia trachomatis, JESSE (test Negative Negative code = 55657-8) Neisseria gonorrhoeae, JESSE (test Negative Negative code = 02061-8) [facility] Description: Chlamydia/GC Boqufwlrttuhg4419-20-42 23:32:00 Test Item Value Reference Range Interpretation Comments Chlamydia trachomatis, JESSE (test Negative Negative code = 90501-3) Neisseria gonorrhoeae, JESSE (test Negative Negative code = 42119-2) [facility] Description: Chlamydia/GC Gevhgcyjxcslb2019-20-98 23:32:00 Test Item Value Reference Range Interpretation Comments Chlamydia trachomatis, JESSE (test Negative Negative code = 42950-9) Neisseria gonorrhoeae, JESSE (test Negative Negative code = 79913-6) [facility] Description: Chlamydia/GC Nhtjithdacerv8257-90-83 23:32:00 Test Item Value Reference Range Interpretation Comments Chlamydia trachomatis, JESSE (test Negative Negative code = 27912-5) Neisseria gonorrhoeae, JESSE (test Negative Negative code = 44898-7) [facility] Description: Chlamydia/GC Djmmbvtravfif9443-96-26 23:32:00 Test Item Value Reference Range Interpretation Comments Chlamydia trachomatis, JESSE (test Negative Negative code = 28307-5) Neisseria gonorrhoeae, JESSE (test Negative Negative code = 09375-7) [facility] Description: Chlamydia/GC Kdicozgowgplm2167-81-64 23:32:00 Test Item Value Reference Range Interpretation Comments Chlamydia trachomatis, JESES (test Negative Negative code = 67670-9) Neisseria gonorrhoeae, JESSE (test Negative Negative code = 52166-6) [facility] Description: Chlamydia/GC Dwweqrqazdcel5217-60-01 23:32:00 Test Item Value Reference Range Interpretation Comments Chlamydia trachomatis, JESSE (test Negative Negative code = 49343-9) Neisseria gonorrhoeae, JESSE (test Negative Negative code = 62113-5) [facility] Description: Chlamydia/GC Lgqxseojfoego2129-05-91 23:32:00 Test Item Value Reference Range Interpretation Comments Chlamydia trachomatis, JESSE (test Negative Negative code = 37262-1) Neisseria gonorrhoeae, JESSE (test Negative Negative code = 61736-7) [facility] Description: Chlamydia/GC Gbjoozkyvetgl1830-64-83 23:32:00 Test Item Value Reference Range Interpretation Comments Chlamydia trachomatis, JESSE (test Negative Negative code = 07746-3) Neisseria gonorrhoeae, JESSE (test Negative Negative code = 86992-8) [facility] Description: Chlamydia/GC Bvrxjbcklazik5950-85-12 23:32:00 Test Item Value Reference Range Interpretation Comments Chlamydia trachomatis, JESSE (test Negative Negative code = 09028-9) Neisseria gonorrhoeae, JESSE (test Negative Negative code = 61883-1) [facility] Description: RPR, Rfx Qn RPR/Confirm [id number] 07:14:00 Test Item Value Reference Range Interpretation Comments RPR (test code = 87082-4) Non Reactive Non Reactive [facility] Description: RPR, Rfx Qn RPR/Confirm [id number] 07:14:00 Test Item Value Reference Range Interpretation Comments RPR (test code = 24525-9) Non Reactive Non Reactive [facility] Description: RPR, Rfx Qn RPR/Confirm [id number] 07:14:00 Test Item Value Reference Range Interpretation Comments RPR (test code = 05497-0) Non Reactive Non Reactive [facility] Description: RPR, Rfx Qn RPR/Confirm [id number] 07:14:00 Test Item Value Reference Range Interpretation Comments RPR (test code = 04277-9) Non Reactive Non Reactive [facility] Description: RPR, Rfx Qn RPR/Confirm [id number] 07:14:00 Test Item Value Reference Range Interpretation Comments RPR (test code = 04141-4) Non Reactive Non Reactive [facility] Description: RPR, Rfx Qn RPR/Confirm [id number] 07:14:00 Test Item Value Reference Range Interpretation Comments RPR (test code = 98672-1) Non Reactive Non Reactive [facility] Description: RPR, Rfx Qn RPR/Confirm [id number] 07:14:00 Test Item Value Reference Range Interpretation Comments RPR (test code = 71664-3) Non Reactive Non Reactive [facility] Description: RPR, Rfx Qn RPR/Confirm [id number] 07:14:00 Test Item Value Reference Range Interpretation Comments RPR (test code = 75810-1) Non Reactive Non Reactive [facility] Description: RPR, Rfx Qn RPR/Confirm [id number] 07:14:00 Test Item Value Reference Range Interpretation Comments RPR (test code = 24238-9) Non Reactive Non Reactive [facility] Description: RPR, Rfx Qn RPR/Confirm [id number] 07:14:00 Test Item Value Reference Range Interpretation Comments RPR (test code = 14823-0) Non Reactive Non Reactive [facility] Description: RPR, Rfx Qn RPR/Confirm [id number] 07:14:00 Test Item Value Reference Range Interpretation Comments RPR (test code = 75208-8) Non Reactive Non Reactive [facility] Description: RPR, Rfx Qn RPR/Confirm [id number] 07:14:00 Test Item Value Reference Range Interpretation Comments RPR (test code = 75032-4) Non Reactive Non Reactive [facility] Description: RPR, Rfx Qn RPR/Confirm [id number] 07:14:00 Test Item Value Reference Range Interpretation Comments RPR (test code = 68281-2) Non Reactive Non Reactive [facility] Description: RPR, Rfx Qn RPR/Confirm [id number] 07:14:00 Test Item Value Reference Range Interpretation Comments RPR (test code = 93377-7) Non Reactive Non Reactive [facility] Description: RPR, Rfx Qn RPR/Confirm [id number] 07:14:00 Test Item Value Reference Range Interpretation Comments RPR (test code = 86600-8) Non Reactive Non Reactive [facility] Description: RPR, Rfx Qn RPR/Confirm [id number] 07:14:00 Test Item Value Reference Range Interpretation Comments RPR (test code = 50358-5) Non Reactive Non Reactive [facility] Description: RPR, Rfx Qn RPR/Confirm [id number] 07:14:00 Test Item Value Reference Range Interpretation Comments RPR (test code = 10691-0) Non Reactive Non Reactive [facility] Description: RPR, Rfx Qn RPR/Confirm [id number] 07:14:00 Test Item Value Reference Range Interpretation Comments RPR (test code = 61085-0) Non Reactive Non Reactive [facility] Description: RPR, Rfx Qn RPR/Confirm [id number] 07:14:00 Test Item Value Reference Range Interpretation Comments RPR (test code = 02408-0) Non Reactive Non Reactive [facility] Description: RPR, Rfx Qn RPR/Confirm [id number] 07:14:00 Test Item Value Reference Range Interpretation Comments RPR (test code = 63187-6) Non Reactive Non Reactive [facility] Description: RPR, Rfx Qn RPR/Confirm [id number] 07:14:00 Test Item Value Reference Range Interpretation Comments RPR (test code = 03517-5) Non Reactive Non Reactive [facility] Description: RPR, Rfx Qn RPR/Confirm [id number] 07:14:00 Test Item Value Reference Range Interpretation Comments RPR (test code = 78865-8) Non Reactive Non Reactive [facility] Description: Thyrotropin [Units/volume] in Serum or Plasma by Detection limit <= 0.05 [id number] 06:10:00 Test Item Value Reference Range Interpretation Comments TSH (test code = 66250-7) 2.160 uIU/mL 0.450-4.500 [facility] Description: Thyrotropin [Units/volume] in Serum or Plasma by Detection limit <= 0.05 [id number] 06:10:00 Test Item Value Reference Range Interpretation Comments TSH (test code = 40100-9) 2.160 uIU/mL 0.450-4.500 [facility] Description: Thyrotropin [Units/volume] in Serum or Plasma by Detection limit <= 0.05 [id number] 06:10:00 Test Item Value Reference Range Interpretation Comments TSH (test code = 80748-4) 2.160 uIU/mL 0.450-4.500 [facility] Description: Thyrotropin [Units/volume] in Serum or Plasma by Detection limit <= 0.05 [id number]/[id number] 06:10:00 Test Item Value Reference Range Interpretation Comments TSH (test code = 68180-0) 2.160 uIU/mL 0.450-4.500 [facility] Description: Thyrotropin [Units/volume] in Serum or Plasma by Detection limit <= 0.05 [id number]/[id number] 06:10:00 Test Item Value Reference Range Interpretation Comments TSH (test code = 39843-5) 2.160 uIU/mL 0.450-4.500 [facility] Description: Thyrotropin [Units/volume] in Serum or Plasma by Detection limit <= 0.05 mIU/[id number] 06:10:00 Test Item Value Reference Range Interpretation Comments TSH (test code = 24976-0) 2.160 uIU/mL 0.450-4.500 [facility] Description: Thyrotropin [Units/volume] in Serum or Plasma by Detection limit <= 0.05 mIU/[id number] 06:10:00 Test Item Value Reference Range Interpretation Comments TSH (test code = 74932-6) 2.160 uIU/mL 0.450-4.500 [facility] Description: Thyrotropin [Units/volume] in Serum or Plasma by Detection limit <= 0.05 mIU/[id number] 06:10:00 Test Item Value Reference Range Interpretation Comments TSH (test code = 87716-5) 2.160 uIU/mL 0.450-4.500 [facility] Description: Thyrotropin [Units/volume] in Serum or Plasma by Detection limit <= 0.05 mIU/[id number] 06:10:00 Test Item Value Reference Range Interpretation Comments TSH (test code = 03870-5) 2.160 uIU/mL 0.450-4.500 [facility] Description: Thyrotropin [Units/volume] in Serum or Plasma by Detection limit <= 0.05 mIU/[id number] 06:10:00 Test Item Value Reference Range Interpretation Comments TSH (test code = 57853-0) 2.160 uIU/mL 0.450-4.500 [facility] Description: Thyrotropin [Units/volume] in Serum or Plasma by Detection limit <= 0.05 mIU/V5259-09-42 06:10:00 Test Item Value Reference Range Interpretation Comments TSH (test code = 95201-7) 2.160 uIU/mL 0.450-4.500 [facility] Description: Thyrotropin [Units/volume] in Serum or Plasma by Detection limit <= 0.05 mIU/[id number] 06:10:00 Test Item Value Reference Range Interpretation Comments TSH (test code = 39888-8) 2.160 uIU/mL 0.450-4.500 [facility] Description: Thyrotropin [Units/volume] in Serum or Plasma by Detection limit <= 0.05 mIU/E3885-98-07 06:10:00 Test Item Value Reference Range Interpretation Comments TSH (test code = 51019-6) 2.160 uIU/mL 0.450-4.500 [facility] Description: Thyrotropin [Units/volume] in Serum or Plasma by Detection limit <= 0.05 mIU/[id number] 06:10:00 Test Item Value Reference Range Interpretation Comments TSH (test code = 92727-2) 2.160 uIU/mL 0.450-4.500 [facility] Description: Thyrotropin [Units/volume] in Serum or Plasma by Detection limit <= 0.05 mIU/C4038-08-33 06:10:00 Test Item Value Reference Range Interpretation Comments TSH (test code = 62504-4) 2.160 uIU/mL 0.450-4.500 [facility] Description: Thyrotropin [Units/volume] in Serum or Plasma by Detection limit <= 0.05 mIU/[id number] 06:10:00 Test Item Value Reference Range Interpretation Comments TSH (test code = 19561-7) 2.160 uIU/mL 0.450-4.500 [facility] Description: Thyrotropin [Units/volume] in Serum or Plasma by Detection limit <= 0.05 mIU/[id number] 06:10:00 Test Item Value Reference Range Interpretation Comments TSH (test code = 32663-4) 2.160 uIU/mL 0.450-4.500 [facility] Description: Thyrotropin [Units/volume] in Serum or Plasma by Detection limit <= 0.05 mIU/[id number] 06:10:00 Test Item Value Reference Range Interpretation Comments TSH (test code = 45864-5) 2.160 uIU/mL 0.450-4.500 [facility] Description: Thyrotropin [Units/volume] in Serum or Plasma by Detection limit <= 0.05 mIU/[id number] 06:10:00 Test Item Value Reference Range Interpretation Comments TSH (test code = 85081-4) 2.160 uIU/mL 0.450-4.500 [facility] Description: Thyrotropin [Units/volume] in Serum or Plasma by Detection limit <= 0.05 mIU/[id number] 06:10:00 Test Item Value Reference Range Interpretation Comments TSH (test code = 00297-1) 2.160 uIU/mL 0.450-4.500 [facility] Description: Thyrotropin [Units/volume] in Serum or Plasma by Detection limit <= 0.05 mIU/[id number] 06:10:00 Test Item Value Reference Range Interpretation Comments TSH (test code = 35620-8) 2.160 uIU/mL 0.450-4.500 [facility] Description: Thyrotropin [Units/volume] in Serum or Plasma by Detection limit <= 0.05 mIU/[id number] 06:10:00 Test Item Value Reference Range Interpretation Comments TSH (test code = 17871-8) 2.160 uIU/mL 0.450-4.500 [facility] Description: Hepatitis Panel (4)2019-05-15 04:37:00 Test Item Value Reference Range Interpretation Comments Hep A Ab, IgM (test code = 20804-4) Negative Negative HBsAg Screen (test code = 5196-1) Negative Negative Hep B Core Ab, IgM (test code = Negative Negative 88598-4) Hep C Virus Ab (test code = 73747-0) <0.1 0.0-0.9 [facility] Description: Hepatitis Panel (4)2019-05-15 04:37:00 Test Item Value Reference Range Interpretation Comments Hep A Ab, IgM (test code = 29970-0) Negative Negative HBsAg Screen (test code = 5196-1) Negative Negative Hep B Core Ab, IgM (test code = Negative Negative 87461-5) Hep C Virus Ab (test code = 16613-0) <0.1 0.0-0.9 [facility] Description: Hepatitis Panel (4)2019-05-15 04:37:00 Test Item Value Reference Range Interpretation Comments Hep A Ab, IgM (test code = 84280-5) Negative Negative HBsAg Screen (test code = 5196-1) Negative Negative Hep B Core Ab, IgM (test code = Negative Negative 68882-3) Hep C Virus Ab (test code = 19346-0) <0.1 0.0-0.9 [facility] Description: Hepatitis Panel (4)2019-05-15 04:37:00 Test Item Value Reference Range Interpretation Comments Hep A Ab, IgM (test code = 02507-9) Negative Negative HBsAg Screen (test code = 5196-1) Negative Negative Hep B Core Ab, IgM (test code = Negative Negative 28130-9) Hep C Virus Ab (test code = 11733-1) <0.1 0.0-0.9 [facility] Description: Hepatitis Panel (4)2019-05-15 04:37:00 Test Item Value Reference Range Interpretation Comments Hep A Ab, IgM (test code = 31379-3) Negative Negative HBsAg Screen (test code = 5196-1) Negative Negative Hep B Core Ab, IgM (test code = Negative Negative 52825-1) Hep C Virus Ab (test code = 01618-1) <0.1 0.0-0.9 [facility] Description: Hepatitis Panel (4)2019-05-15 04:37:00 Test Item Value Reference Range Interpretation Comments Hep A Ab, IgM (test code = 37024-8) Negative Negative HBsAg Screen (test code = 5196-1) Negative Negative Hep B Core Ab, IgM (test code = Negative Negative 37384-7) Hep C Virus Ab (test code = 41425-8) <0.1 0.0-0.9 [facility] Description: Hepatitis Panel (4)2019-05-15 04:37:00 Test Item Value Reference Range Interpretation Comments Hep A Ab, IgM (test code = 07448-4) Negative Negative HBsAg Screen (test code = 5196-1) Negative Negative Hep B Core Ab, IgM (test code = Negative Negative 85674-7) Hep C Virus Ab (test code = 14306-1) <0.1 0.0-0.9 [facility] Description: Hepatitis Panel (4)2019-05-15 04:37:00 Test Item Value Reference Range Interpretation Comments Hep A Ab, IgM (test code = 50955-4) Negative Negative HBsAg Screen (test code = 5196-1) Negative Negative Hep B Core Ab, IgM (test code = Negative Negative 38203-1) Hep C Virus Ab (test code = 69289-1) <0.1 0.0-0.9 [facility] Description: Hepatitis Panel (4)2019-05-15 04:37:00 Test Item Value Reference Range Interpretation Comments Hep A Ab, IgM (test Negative Negative code = 00719-6) HBsAg Screen (test Negative Negative code = 5196-1) Hep B Core Ab, IgM Negative Negative (test code = 83638-2) Hep C Virus Ab <0.1 0.0-0.9 Negative: < 0.8 (test code = Indeterminate: 0.8 - 0.9 10999-7) Positive: > 0.9 . The CDC recommends that a positive HCV antibody re sult be followed up wit h a HCV Nucleic Acid Am plification test (708493).P erformed by:Chet martinez ([place]) [facility] Description: Hepatitis Panel (4)2019-05-15 04:37:00 Test Item Value Reference Range Interpretation Comments Hep A Ab, IgM (test Negative Negative code = 81419-5) HBsAg Screen (test Negative Negative code = 5196-1) Hep B Core Ab, IgM Negative Negative (test code = 25481-7) Hep C Virus Ab <0.1 0.0-0.9 Negative: < 0.8 (test code = Indeterminate: 0.8 - 0.9 00133-9) Positive: > 0.9 . The CDC recommends that a positive HCV antibody re sult be followed up wit h a HCV Nucleic Acid Am plification test (268922).P erformed by:[facility] martinez ([facility]) [facility] Description: Hepatitis Panel (4)2019-05-15 04:37:00 Test Item Value Reference Range Interpretation Comments Hep A Ab, IgM (test Negative Negative code = 51046-4) HBsAg Screen (test Negative Negative code = 5196-1) Hep B Core Ab, IgM Negative Negative (test code = 98261-6) Hep C Virus Ab <0.1 0.0-0.9 Negative: < 0.8 (test code = Indeterminate: 0.8 - 0.9 09821-7) Positive: > 0.9 . The CDC recommends that a positive HCV antibody re sult be followed up wit h a HCV Nucleic Acid Am plification test (540029).P erformed by:Mommy Nearest ([facility]) [facility] Description: Hepatitis Panel (4)2019-05-15 04:37:00 Test Item Value Reference Range Interpretation Comments Hep A Ab, IgM (test Negative Negative code = 16246-0) HBsAg Screen (test Negative Negative code = 5196-1) Hep B Core Ab, IgM Negative Negative (test code = 80923-7) Hep C Virus Ab <0.1 0.0-0.9 Negative: < 0.8 (test code = Indeterminate: 0.8 - 0.9 21340-6) Positive: > 0.9 . The CDC recommends that a positive HCV antibody re sult be followed up wit h a HCV Nucleic Acid Am plification test (146565).P erformed by:Mommy Nearest ([facility]) [facility] Description: Hepatitis Panel (4)2019-05-15 04:37:00 Test Item Value Reference Range Interpretation Comments Hep A Ab, IgM (test Negative Negative code = 69069-5) HBsAg Screen (test Negative Negative code = 5196-1) Hep B Core Ab, IgM Negative Negative (test code = 56778-3) Hep C Virus Ab <0.1 0.0-0.9 Negative: < 0.8 (test code = Indeterminate: 0.8 - 0.9 84636-4) Positive: > 0.9 . The CDC recommends that a positive HCV antibody re sult be followed up wit h a HCV Nucleic Acid Am plification test (692408).P erformed by:Mommy Nearest ([facility]) [facility] Description: Hepatitis Panel (4)2019-05-15 04:37:00 Test Item Value Reference Range Interpretation Comments Hep A Ab, IgM (test code = 84794-5) Negative Negative HBsAg Screen (test code = 5196-1) Negative Negative Hep B Core Ab, IgM (test code = Negative Negative 74891-8) Hep C Virus Ab (test code = 75540-0) <0.1 0.0-0.9 [facility] Description: Hepatitis Panel (4)2019-05-15 04:37:00 Test Item Value Reference Range Interpretation Comments Hep A Ab, IgM (test Negative Negative code = 93197-2) HBsAg Screen (test Negative Negative code = 5196-1) Hep B Core Ab, IgM Negative Negative (test code = 15550-6) Hep C Virus Ab <0.1 0.0-0.9 Negative: < 0.8 (test code = Indeterminate: 0.8 - 0.9 99323-0) Positive: > 0.9 . The CDC recommends that a positive HCV antibody re sult be followed up wit h a HCV Nucleic Acid Am plification test (064190).P erformed by:Chet martinez ([place]) [facility] Description: Hepatitis Panel (4)2019-05-15 04:37:00 Test Item Value Reference Range Interpretation Comments Hep A Ab, IgM (test Negative Negative code = 07492-7) HBsAg Screen (test Negative Negative code = 5196-1) Hep B Core Ab, IgM Negative Negative (test code = 23519-9) Hep C Virus Ab <0.1 0.0-0.9 Negative: < 0.8 (test code = Indeterminate: 0.8 - 0.9 66382-2) Positive: > 0.9 . The CDC recommends that a positive HCV antibody re sult be followed up wit h a HCV Nucleic Acid Am plification test (610821). Performed by:Chet martinez ([place]) [facility] Description: Hepatitis Panel (4)2019-05-15 04:37:00 Test Item Value Reference Range Interpretation Comments Hep A Ab, IgM (test Negative Negative code = 37088-5) HBsAg Screen (test Negative Negative code = 5196-1) Hep B Core Ab, IgM Negative Negative (test code = 15454-5) Hep C Virus Ab <0.1 0.0-0.9 Negative: < 0.8 (test code = Indeterminate: 0.8 - 0.9 06874-4) Positive: > 0.9 . The CDC recommends that a positive HCV antibody re sult be followed up wit h a HCV Nucleic Acid Am plification test (001249).P erformed by:[facility] ([place]) [facility] Description: Hepatitis Panel (4)2019-05-15 04:37:00 Test Item Value Reference Range Interpretation Comments Hep A Ab, IgM (test Negative Negative code = 79634-3) HBsAg Screen (test Negative Negative code = 5196-1) Hep B Core Ab, IgM Negative Negative (test code = 63791-4) Hep C Virus Ab <0.1 0.0-0.9 Negative: < 0.8 (test code = Indeterminate: 0.8 - 0.9 57421-6) Positive: > 0.9 . The CDC recommends that a positive HCV antibody re sult be followed up wit h a HCV Nucleic Acid Am plification test (294048).P erformed by:[facility] ([place]) [facility] Description: Hepatitis Panel (4)2019-05-15 04:37:00 Test Item Value Reference Range Interpretation Comments Hep A Ab, IgM (test code = 23194-1) Negative Negative HBsAg Screen (test code = 5196-1) Negative Negative Hep B Core Ab, IgM (test code = Negative Negative 30974-3) Hep C Virus Ab (test code = 17308-7) <0.1 0.0-0.9 [facility] Description: Hepatitis Panel (4)2019-05-15 04:37:00 Test Item Value Reference Range Interpretation Comments Hep A Ab, IgM (test code = 83750-7) Negative Negative HBsAg Screen (test code = 5196-1) Negative Negative Hep B Core Ab, IgM (test code = Negative Negative 32492-9) Hep C Virus Ab (test code = 99525-2) <0.1 0.0-0.9 [facility] Description: Hepatitis Panel (4)2019-05-15 04:37:00 Test Item Value Reference Range Interpretation Comments Hep A Ab, IgM (test code = 11340-6) Negative Negative HBsAg Screen (test code = 5196-1) Negative Negative Hep B Core Ab, IgM (test code = Negative Negative 31196-7) Hep C Virus Ab (test code = 36942-2) <0.1 0.0-0.9 [facility] Description: Hepatitis Panel (4)2019-05-15 04:37:00 Test Item Value Reference Range Interpretation Comments Hep A Ab, IgM (test code = 58601-2) Negative Negative HBsAg Screen (test code = 5196-1) Negative Negative Hep B Core Ab, IgM (test code = Negative Negative 85431-3) Hep C Virus Ab (test code = 61730-6) <0.1 0.0-0.9 [facility] Description: HIV 1+2 Ab+HIV1 p24 Ag [Presence] in Serum or Plasma by Gncfdyjojse6463-45-52 04:35:00 Test Item Value Reference Range Interpretation Comments HIV Screen 4th Generation wRfx Non Reactive Non Reactive (test code = 90064-8) [facility] Description: HIV 1+2 Ab+HIV1 p24 Ag [Presence] in Serum or Plasma by Hxqqkjrcveu4101-41-69 04:35:00 Test Item Value Reference Range Interpretation Comments HIV Screen 4th Generation wRfx Non Reactive Non Reactive (test code = 97743-8) [facility] Description: HIV 1+2 Ab+HIV1 p24 Ag [Presence] in Serum or Plasma by Xdrxmptmnlh8707-68-22 04:35:00 Test Item Value Reference Range Interpretation Comments HIV Screen 4th Generation wRfx Non Reactive Non Reactive (test code = 89193-4) [facility] Description: HIV 1+2 Ab+HIV1 p24 Ag [Presence] in Serum or Plasma by Vveagmgpnlg3488-34-20 04:35:00 Test Item Value Reference Range Interpretation Comments HIV Screen 4th Generation wRfx Non Reactive Non Reactive (test code = 88467-6) [facility] Description: HIV 1+2 Ab+HIV1 p24 Ag [Presence] in Serum or Plasma by Bwjjckzzebz1048-55-95 04:35:00 Test Item Value Reference Range Interpretation Comments HIV Screen 4th Generation wRfx Non Reactive Non Reactive (test code = 55614-6) [facility] Description: HIV 1+2 Ab+HIV1 p24 Ag [Presence] in Serum or Plasma by Txqqjmuubgx5219-70-45 04:35:00 Test Item Value Reference Range Interpretation Comments HIV Screen 4th Generation wRfx Non Reactive Non Reactive (test code = 30206-4) [facility] Description: HIV 1+2 Ab+HIV1 p24 Ag [Presence] in Serum or Plasma by Pagmetxtuft4818-73-86 04:35:00 Test Item Value Reference Range Interpretation Comments HIV Screen 4th Generation wRfx Non Reactive Non Reactive (test code = 06538-6) [facility] Description: HIV 1+2 Ab+HIV1 p24 Ag [Presence] in Serum or Plasma by Bedhbxdydlv0755-78-24 04:35:00 Test Item Value Reference Range Interpretation Comments HIV Screen 4th Generation wRfx Non Reactive Non Reactive (test code = 16713-2) [facility] Description: HIV 1+2 Ab+HIV1 p24 Ag [Presence] in Serum or Plasma by Cfklmigizny8102-26-77 04:35:00 Test Item Value Reference Range Interpretation Comments HIV Screen 4th Generation wRfx Non Reactive Non Reactive (test code = 31158-2) [facility] Description: HIV 1+2 Ab+HIV1 p24 Ag [Presence] in Serum or Plasma by Eatisomtklb4739-78-91 04:35:00 Test Item Value Reference Range Interpretation Comments HIV Screen 4th Generation wRfx Non Reactive Non Reactive (test code = 95060-0) [facility] Description: HIV 1+2 Ab+HIV1 p24 Ag [Presence] in Serum or Plasma by Ulrposikcir0186-43-35 04:35:00 Test Item Value Reference Range Interpretation Comments HIV Screen 4th Generation wRfx Non Reactive Non Reactive (test code = 74259-5) [facility] Description: HIV 1+2 Ab+HIV1 p24 Ag [Presence] in Serum or Plasma by Qpmyihqynmz4985-85-53 04:35:00 Test Item Value Reference Range Interpretation Comments HIV Screen 4th Generation wRfx Non Reactive Non Reactive (test code = 93815-1) [facility] Description: HIV 1+2 Ab+HIV1 p24 Ag [Presence] in Serum or Plasma by Rdmywqgdkiw3124-54-49 04:35:00 Test Item Value Reference Range Interpretation Comments HIV Screen 4th Generation wRfx Non Reactive Non Reactive (test code = 67584-2) [facility] Description: HIV 1+2 Ab+HIV1 p24 Ag [Presence] in Serum or Plasma by Vimjrqtmzha0278-54-10 04:35:00 Test Item Value Reference Range Interpretation Comments HIV Screen 4th Generation wRfx Non Reactive Non Reactive (test code = 74682-2) [facility] Description: HIV 1+2 Ab+HIV1 p24 Ag [Presence] in Serum or Plasma by Cwihwwihilr8160-30-13 04:35:00 Test Item Value Reference Range Interpretation Comments HIV Screen 4th Generation wRfx Non Reactive Non Reactive (test code = 14054-0) [facility] Description: HIV 1+2 Ab+HIV1 p24 Ag [Presence] in Serum or Plasma by Gwahgnefbeb7592-98-78 04:35:00 Test Item Value Reference Range Interpretation Comments HIV Screen 4th Generation wRfx Non Reactive Non Reactive (test code = 84282-6) [facility] Description: HIV 1+2 Ab+HIV1 p24 Ag [Presence] in Serum or Plasma by Thvdotnihzh2153-04-94 04:35:00 Test Item Value Reference Range Interpretation Comments HIV Screen 4th Generation wRfx Non Reactive Non Reactive (test code = 31922-4) [facility] Description: HIV 1+2 Ab+HIV1 p24 Ag [Presence] in Serum or Plasma by Zogfmnkcbpb7267-34-93 04:35:00 Test Item Value Reference Range Interpretation Comments HIV Screen 4th Generation wRfx Non Reactive Non Reactive (test code = 30133-7) [facility] Description: HIV 1+2 Ab+HIV1 p24 Ag [Presence] in Serum or Plasma by Riqivtdoihc1983-30-23 04:35:00 Test Item Value Reference Range Interpretation Comments HIV Screen 4th Generation wRfx Non Reactive Non Reactive (test code = 98939-9) [facility] Description: HIV 1+2 Ab+HIV1 p24 Ag [Presence] in Serum or Plasma by Fvnozbsekcz9476-82-47 04:35:00 Test Item Value Reference Range Interpretation Comments HIV Screen 4th Generation wRfx Non Reactive Non Reactive (test code = 66368-0) [facility] Description: HIV 1+2 Ab+HIV1 p24 Ag [Presence] in Serum or Plasma by Quhtjcafmjx3230-99-37 04:35:00 Test Item Value Reference Range Interpretation Comments HIV Screen 4th Generation wRfx Non Reactive Non Reactive (test code = 57124-7) [facility] Description: HIV 1+2 Ab+HIV1 p24 Ag [Presence] in Serum or Plasma by Gevqiazjzfa5407-26-96 04:35:00 Test Item Value Reference Range Interpretation Comments HIV Screen 4th Generation wRfx Non Reactive Non Reactive (test code = 54411-4) [facility] Description: Hemoglobin A1c/Hemoglobin.total in Blood 2019-05-15 03:30:00 Test Item Value Reference Range Interpretation Comments Hemoglobin A1c (test code 6.1 % 4.8-5.6 H . Prediabetes: 5.7 - = 4548-4) 6.4 Diabetes: > 6.4 Glycemic contro l for adults with suzanen betes: <7.0

P erformed by:
[facility] ()

[facility] Description: Hemoglobin A1c/Hemoglobin.total in Blood 2019-05-15 03:30:00 Test Item Value Reference Range Interpretation Comments Hemoglobin A1c (test code 6.1 % 4.8-5.6 H . Prediabetes: 5.7 - = 4548-4) 6.4 Diabetes: > 6.4 Glycemic contro l for adults with suzanne betes: <7.0

P erformed by:
[facility] ()

[facility] Description: Hemoglobin A1c/Hemoglobin.total in Blood 2019-05-15 03:30:00 Test Item Value Reference Range Interpretation Comments Hemoglobin A1c (test code 6.1 % 4.8-5.6 H . Prediabetes: 5.7 - = 4548-4) 6.4 Diabetes: > 6.4 Glycemic contro l for adults with suzanne betes: <7.0

P erformed by:
[facility] ()

[facility] Description: Hemoglobin A1c/Hemoglobin.total in Blood 2019-05-15 03:30:00 Test Item Value Reference Range Interpretation Comments Hemoglobin A1c (test code 6.1 % 4.8-5.6 H . Prediabetes: 5.7 - = 4548-4) 6.4 Diabetes: > 6.4 Glycemic contro l for adults with suzanne betes: <7.0

P erformed by:
[facility] ()

[facility] Description: Hemoglobin A1c/Hemoglobin.total in Blood 2019-05-15 03:30:00 Test Item Value Reference Range Interpretation Comments Hemoglobin A1c (test code 6.1 % 4.8-5.6 H . Prediabetes: 5.7 - = 4548-4) 6.4 Diabetes: > 6.4 Glycemic contro l for adults with suzanne betes: <7.0

P erformed by:
[facility] ([place])

[facility] Description: Hemoglobin A1c/Hemoglobin.total in Blood 2019-05-15 03:30:00 Test Item Value Reference Range Interpretation Comments Hemoglobin A1c (test code 6.1 % 4.8-5.6 H . Prediabetes: 5.7 - = 4548-4) 6.4 Diabetes: > 6.4 Glycemic contro l for adults with suzanne betes: <7.0

P erformed by:
[facility] ([place])

[facility] Description: Hemoglobin A1c/Hemoglobin.total in Blood 2019-05-15 03:30:00 Test Item Value Reference Range Interpretation Comments Hemoglobin A1c (test code 6.1 % 4.8-5.6 H . Prediabetes: 5.7 - = 4548-4) 6.4 Diabetes: > 6.4 Glycemic contro l for adults with suzanne betes: <7.0

P erformed by:
[facility] ([place])

[facility] Description: Hemoglobin A1c/Hemoglobin.total in Blood 2019-05-15 03:30:00 Test Item Value Reference Range Interpretation Comments Hemoglobin A1c (test code 6.1 % 4.8-5.6 H . Prediabetes: 5.7 - = 4548-4) 6.4 Diabetes: > 6.4 Glycemic contro l for adults with suzanne betes: <7.0

P erformed by:
[facility] ([place])

[facility] Description: Hemoglobin A1c/Hemoglobin.total in Blood 2019-05-15 03:30:00 Test Item Value Reference Range Interpretation Comments Hemoglobin A1c (test code 6.1 % 4.8-5.6 H . Prediabetes: 5.7 - = 4548-4) 6.4 Diabetes: > 6.4 Glycemic contro l for adults with suzanne betes: <7.0Performed by:[facility] ([place]) [facility] Description: Hemoglobin A1c/Hemoglobin.total in Blood 2019-05-15 03:30:00 Test Item Value Reference Range Interpretation Comments Hemoglobin A1c (test code 6.1 % 4.8-5.6 H . Prediabetes: 5.7 - = 4548-4) 6.4 Diabetes: > 6.4 Glycemic contro l for adults with suzanne betes: <7.0Performed by:[facility] ([place]) [facility] Description: Hemoglobin A1c/Hemoglobin.total in Blood 2019-05-15 03:30:00 Test Item Value Reference Range Interpretation Comments Hemoglobin A1c (test code 6.1 % 4.8-5.6 H . Prediabetes: 5.7 - = 4548-4) 6.4 Diabetes: > 6.4 Glycemic contro l for adults with suzanne betes: <7.0Performed by:[facility] ([place]) [facility] Description: Hemoglobin A1c/Hemoglobin.total in Blood 2019-05-15 03:30:00 Test Item Value Reference Range Interpretation Comments Hemoglobin A1c (test code 6.1 % 4.8-5.6 H . Prediabetes: 5.7 - = 4548-4) 6.4 Diabetes: > 6.4 Glycemic contro l for adults with suzanne betes: <7.0Performed by:[facility] ([place]) [facility] Description: Hemoglobin A1c/Hemoglobin.total in Blood 2019-05-15 03:30:00 Test Item Value Reference Range Interpretation Comments Hemoglobin A1c (test code 6.1 % 4.8-5.6 H . Prediabetes: 5.7 - = 4548-4) 6.4 Diabetes: > 6.4 Glycemic contro l for adults with suzanne betes: <7.0Performed by:[facility] ([place]) [facility] Description: Hemoglobin A1c/Hemoglobin.total in Blood 2019-05-15 03:30:00 Test Item Value Reference Range Interpretation Comments Hemoglobin A1c (test code 6.1 % 4.8-5.6 H . Prediabetes: 5.7 - = 4548-4) 6.4 Diabetes: > 6.4 Glycemic contro l for adults with suzanne betes: <7.0

P erformed by:
[facility] ([place])

[facility] Description: Hemoglobin A1c/Hemoglobin.total in Blood 2019-05-15 03:30:00 Test Item Value Reference Range Interpretation Comments Hemoglobin A1c (test code 6.1 % 4.8-5.6 H . Prediabetes: 5.7 - = 4548-4) 6.4 Diabetes: > 6.4 Glycemic contro l for adults with suzanne betes: <7.0Performed by:[facility] Georgette martinez (HD) [facility] Description: Hemoglobin A1c/Hemoglobin.total in Blood 2019-05-15 03:30:00 Test Item Value Reference Range Interpretation Comments Hemoglobin A1c (test code 6.1 % 4.8-5.6 H . Prediabetes: 5.7 - = 4548-4) 6.4 Diabetes: > 6.4 Glycemic contro l for adults with suzanne betes: <7.0Performed by:[facility] Georgette martinez (HD) [facility] Description: Hemoglobin A1c/Hemoglobin.total in Blood 2019-05-15 03:30:00 Test Item Value Reference Range Interpretation Comments Hemoglobin A1c (test code 6.1 % 4.8-5.6 H . Prediabetes: 5.7 - = 4548-4) 6.4 Diabetes: > 6.4 Glycemic contro l for adults with suzanne betes: <7.0Performed by:[facility] Georgette martinez (HD) [facility] Description: Hemoglobin A1c/Hemoglobin.total in Blood 2019-05-15 03:30:00 Test Item Value Reference Range Interpretation Comments Hemoglobin A1c (test code 6.1 % 4.8-5.6 H . Prediabetes: 5.7 - = 4548-4) 6.4 Diabetes: > 6.4 Glycemic contro l for adults with suzanne betes: <7.0Performed by:[facility] Georgette martinez (HD) [facility] Description: Hemoglobin A1c/Hemoglobin.total in Blood 2019-05-15 03:30:00 Test Item Value Reference Range Interpretation Comments Hemoglobin A1c (test code 6.1 % 4.8-5.6 H . Prediabetes: 5.7 - = 4548-4) 6.4 Diabetes: > 6.4 Glycemic contro l for adults with suzanne betes: <7.0

P erformed by:
[facility] ()

[facility] Description: Hemoglobin A1c/Hemoglobin.total in Blood 2019-05-15 03:30:00 Test Item Value Reference Range Interpretation Comments Hemoglobin A1c (test code 6.1 % 4.8-5.6 H . Prediabetes: 5.7 - = 4548-4) 6.4 Diabetes: > 6.4 Glycemic contro l for adults with suzanne betes: <7.0

P erformed by:
[facility] ()

[facility] Description: Hemoglobin A1c/Hemoglobin.total in Blood 2019-05-15 03:30:00 Test Item Value Reference Range Interpretation Comments Hemoglobin A1c (test code 6.1 % 4.8-5.6 H . Prediabetes: 5.7 - = 4548-4) 6.4 Diabetes: > 6.4 Glycemic contro l for adults with suzanne betes: <7.0

P erformed by:
[facility] ()

[facility] Description: Hemoglobin A1c/Hemoglobin.total in Blood 2019-05-15 03:30:00 Test Item Value Reference Range Interpretation Comments Hemoglobin A1c (test code 6.1 % 4.8-5.6 H . Prediabetes: 5.7 - = 4548-4) 6.4 Diabetes: > 6.4 Glycemic contro l for adults with suzanne betes: <7.0

P erformed by:
[facility] ()

[facility] Description: Lipid [id number] 00:39:00 Test Item Value Reference Range Interpretation Comments Cholesterol, Total (test code = 159 mg/dL 616-500 8986-3) Triglycerides (test code = 2571-8) 121 mg/dL 0-149 HDL Cholesterol (test code = 39 mg/dL >39 L 2085-9) VLDL Cholesterol Jose Roberto (test code = 24 mg/dL 5-40 65438-4) LDL Cholesterol Calc (test code = 96 mg/dL 0-99 19419-1) Comment: (test code = 16925-2) [facility] Description: Lipid [id number] 00:39:00 Test Item Value Reference Range Interpretation Comments Cholesterol, Total (test code = 159 mg/dL 571-967 9531-3) Triglycerides (test code = 2571-8) 121 mg/dL 0-149 HDL Cholesterol (test code = 39 mg/dL >39 L 2085-9) VLDL Cholesterol Jose Roberto (test code = 24 mg/dL 5-40 08736-3) LDL Cholesterol Calc (test code = 96 mg/dL 0-99 37641-7) Comment: (test code = 51093-2) [facility] Description: Lipid [id number] 00:39:00 Test Item Value Reference Range Interpretation Comments Cholesterol, Total (test code = 159 mg/dL 324-454 6459-3) Triglycerides (test code = 2571-8) 121 mg/dL 0-149 HDL Cholesterol (test code = 39 mg/dL >39 L 2085-9) VLDL Cholesterol Jose Roberto (test code = 24 mg/dL 5-40 76894-8) LDL Cholesterol Calc (test code = 96 mg/dL 0-99 50446-8) Comment: (test code = 72627-8) [facility] Description: Lipid [id number] 00:39:00 Test Item Value Reference Range Interpretation Comments Cholesterol, Total (test code = 159 mg/dL 971-837 0932-3) Triglycerides (test code = 2571-8) 121 mg/dL 0-149 HDL Cholesterol (test code = 39 mg/dL >39 L 2085-9) VLDL Cholesterol Jose Roberto (test code = 24 mg/dL 5-40 62188-8) LDL Cholesterol Calc (test code = 96 mg/dL 0-99 46734-8) Comment: (test code = 17645-5) [facility] Description: Lipid [id number] 00:39:00 Test Item Value Reference Range Interpretation Comments Cholesterol, Total (test code = 159 mg/dL 988-652 3833-3) Triglycerides (test code = 2571-8) 121 mg/dL 0-149 HDL Cholesterol (test code = 39 mg/dL >39 L 2085-9) VLDL Cholesterol Jose Roberto (test code = 24 mg/dL 5-40 38230-5) LDL Cholesterol Calc (test code = 96 mg/dL 0-99 62184-1) Comment: (test code = 90641-0) [facility] Description: Lipid [id number] 00:39:00 Test Item Value Reference Range Interpretation Comments Cholesterol, Total (test code = 159 mg/dL 336-378 9524-3) Triglycerides (test code = 2571-8) 121 mg/dL 0-149 HDL Cholesterol (test code = 39 mg/dL >39 L 2085-9) VLDL Cholesterol Jose Roberto (test code = 24 mg/dL 5-40 59866-7) LDL Cholesterol Calc (test code = 96 mg/dL 0-99 26308-1) Comment: (test code = 81629-1) [facility] Description: Lipid [id number] 00:39:00 Test Item Value Reference Range Interpretation Comments Cholesterol, Total (test code = 159 mg/dL 328-368 5418-3) Triglycerides (test code = 2571-8) 121 mg/dL 0-149 HDL Cholesterol (test code = 39 mg/dL >39 L 2085-9) VLDL Cholesterol Jose Roberto (test code = 24 mg/dL 5-40 57823-2) LDL Cholesterol Calc (test code = 96 mg/dL 0-99 41732-0) Comment: (test code = 92262-9) [facility] Description: Lipid [id number] 00:39:00 Test Item Value Reference Range Interpretation Comments Cholesterol, Total (test code = 159 mg/dL 602-545 2070-3) Triglycerides (test code = 2571-8) 121 mg/dL 0-149 HDL Cholesterol (test code = 39 mg/dL >39 L 2085-9) VLDL Cholesterol Jose Roberto (test code = 24 mg/dL 5-40 52085-8) LDL Cholesterol Calc (test code = 96 mg/dL 0-99 69498-7) Comment: (test code = 09781-5) [facility] Description: Lipid [id number] 00:39:00 Test Item Value Reference Range Interpretation Comments Cholesterol, Total (test code = 159 mg/dL 809-825 4898-3) Triglycerides (test code = 2571-8) 121 mg/dL 0-149 HDL Cholesterol (test code = 39 mg/dL >39 L 2085-9) VLDL Cholesterol Jose Roberto (test code = 24 mg/dL 5-40 62501-2) LDL Cholesterol Calc (test code = 96 mg/dL 0-99 89736-1) Comment: (test code = 15559-3) [facility] Description: Lipid [id number] 00:39:00 Test Item Value Reference Range Interpretation Comments Cholesterol, Total (test code = 159 mg/dL 600-598 0018-3) Triglycerides (test code = 2571-8) 121 mg/dL 0-149 HDL Cholesterol (test code = 39 mg/dL >39 L 5-9) VLDL Cholesterol Jose Roberto (test code = 24 mg/dL 5-40 10371-5) LDL Cholesterol Calc (test code = 96 mg/dL 0-99 62774-8) Comment: (test code = 87908-9) [facility] Description: Lipid [id number] 00:39:00 Test Item Value Reference Range Interpretation Comments Cholesterol, Total (test code = 159 mg/dL 752-109 6367-3) Triglycerides (test code = 2571-8) 121 mg/dL 0-149 HDL Cholesterol (test code = 39 mg/dL >39 L 5-9) VLDL Cholesterol Jose Roberto (test code = 24 mg/dL 5-40 63162-6) LDL Cholesterol Calc (test code = 96 mg/dL 0-99 25268-3) Comment: (test code = 43412-2) [facility] Description: Lipid [id number] 00:39:00 Test Item Value Reference Range Interpretation Comments Cholesterol, Total (test code = 159 mg/dL 638-019 9667-3) Triglycerides (test code = 2571-8) 121 mg/dL 0-149 HDL Cholesterol (test code = 39 mg/dL >39 L 2085-9) VLDL Cholesterol Jose Roberto (test code = 24 mg/dL 5-40 87924-2) LDL Cholesterol Calc (test code = 96 mg/dL 0-99 24176-4) Comment: (test code = 71310-9) [facility] Description: Lipid [id number] 00:39:00 Test Item Value Reference Range Interpretation Comments Cholesterol, Total (test code = 159 mg/dL 649-824 2283-3) Triglycerides (test code = 2571-8) 121 mg/dL 0-149 HDL Cholesterol (test code = 39 mg/dL >39 L 5-9) VLDL Cholesterol Jose Roberto (test code = 24 mg/dL 5-40 47616-5) LDL Cholesterol Calc (test code = 96 mg/dL 0-99 76057-3) Comment: (test code = 58653-9) [facility] Description: Lipid [id number] 00:39:00 Test Item Value Reference Range Interpretation Comments Cholesterol, Total (test code = 159 mg/dL 870-468 1977-3) Triglycerides (test code = 2571-8) 121 mg/dL 0-149 HDL Cholesterol (test code = 39 mg/dL >39 L 5-9) VLDL Cholesterol Jose Roberto (test code = 24 mg/dL 5-40 30387-2) LDL Cholesterol Calc (test code = 96 mg/dL 0-99 74908-8) Comment: (test code = 67188-8) [facility] Description: Lipid [id number] 00:39:00 Test Item Value Reference Range Interpretation Comments Cholesterol, Total (test code = 159 mg/dL 578-227 5242-3) Triglycerides (test code = 2571-8) 121 mg/dL 0-149 HDL Cholesterol (test code = 39 mg/dL >39 L 5-9) VLDL Cholesterol Jose Roberto (test code = 24 mg/dL 5-40 64671-2) LDL Cholesterol Calc (test code = 96 mg/dL 0-99 17513-5) Comment: (test code = 71739-9) [facility] Description: Lipid [id number] 00:39:00 Test Item Value Reference Range Interpretation Comments Cholesterol, Total (test code = 159 mg/dL 356-688 4697-3) Triglycerides (test code = 2571-8) 121 mg/dL 0-149 HDL Cholesterol (test code = 39 mg/dL >39 L 5-9) VLDL Cholesterol Jose Roberto (test code = 24 mg/dL 5-40 19632-3) LDL Cholesterol Calc (test code = 96 mg/dL 0-99 15400-8) Comment: (test code = 79257-0) [facility] Description: Lipid [id number] 00:39:00 Test Item Value Reference Range Interpretation Comments Cholesterol, Total (test code = 159 mg/dL 521-871 9539-3) Triglycerides (test code = 2571-8) 121 mg/dL 0-149 HDL Cholesterol (test code = 39 mg/dL >39 L 2085-9) VLDL Cholesterol Jose Roberto (test code = 24 mg/dL 5-40 04907-2) LDL Cholesterol Calc (test code = 96 mg/dL 0-99 72680-7) Comment: (test code = 46623-0) [facility] Description: Lipid [id number] 00:39:00 Test Item Value Reference Range Interpretation Comments Cholesterol, Total (test code = 159 mg/dL 835-831 3329-3) Triglycerides (test code = 2571-8) 121 mg/dL 0-149 HDL Cholesterol (test code = 39 mg/dL >39 L 2085-9) VLDL Cholesterol Jose Roberto (test code = 24 mg/dL 5-40 07130-1) LDL Cholesterol Calc (test code = 96 mg/dL 0-99 01842-6) Comment: (test code = 34415-3) [facility] Description: Lipid [id number] 00:39:00 Test Item Value Reference Range Interpretation Comments Cholesterol, Total (test code = 159 mg/dL 094-828 6581-3) Triglycerides (test code = 2571-8) 121 mg/dL 0-149 HDL Cholesterol (test code = 39 mg/dL >39 L 2085-9) VLDL Cholesterol Jose Roberto (test code = 24 mg/dL 5-40 74611-6) LDL Cholesterol Calc (test code = 96 mg/dL 0-99 45960-8) Comment: (test code = 65978-4) [facility] Description: Lipid [id number] 00:39:00 Test Item Value Reference Range Interpretation Comments Cholesterol, Total (test code = 159 mg/dL 195-006 8399-3) Triglycerides (test code = 2571-8) 121 mg/dL 0-149 HDL Cholesterol (test code = 39 mg/dL >39 L 2085-9) VLDL Cholesterol Jose Roberto (test code = 24 mg/dL 5-40 66346-3) LDL Cholesterol Calc (test code = 96 mg/dL 0-99 90577-9) Comment: (test code = 17923-1) [facility] Description: Lipid [id number] 00:39:00 Test Item Value Reference Range Interpretation Comments Cholesterol, Total (test code = 159 mg/dL 806-122 0742-3) Triglycerides (test code = 2571-8) 121 mg/dL 0-149 HDL Cholesterol (test code = 39 mg/dL >39 L 2085-9) VLDL Cholesterol Jose Roberto (test code = 24 mg/dL 5-40 50669-1) LDL Cholesterol Calc (test code = 96 mg/dL 0-99 84278-1) Comment: (test code = 63311-6) [facility] Description: Lipid [id number] 00:39:00 Test Item Value Reference Range Interpretation Comments Cholesterol, Total (test code = 159 mg/dL 868-352 1438-3) Triglycerides (test code = 2571-8) 121 mg/dL 0-149 HDL Cholesterol (test code = 39 mg/dL >39 L 5-9) VLDL Cholesterol Jose Roberto (test code = 24 mg/dL 5-40 77858-8) LDL Cholesterol Calc (test code = 96 mg/dL 0-99 77542-6) Comment: (test code = 28258-2) [facility] Description: Comp. Metabolic Panel (14)2019-05-15 00:23:00 Test Item Value Reference Range Interpretation Comments Glucose (test code = 2345-7) 111 mg/dL 65-99 H BUN (test code = 3094-0) 9 mg/dL 6-24 Creatinine (test code = 0.97 mg/dL 0.76-1.27 2160-0) eGFR If NonAfricn Am (test 91 mL/min/1.73 >59 code = 20097-2) eGFR If Africn Am (test code 105 mL/min/1.73 >59 = 23556-1) BUN/Creatinine Ratio (test 9 -20 code = 3097-3) Sodium (test code = 2951-2) 141 mmol/L 134-144 Potassium (test code = 4.7 mmol/L 3.5-5.2 2823-3) Chloride (test code = 2075-0) 100 mmol/L 96-106 Carbon Dioxide, Total (test 24 mmol/L 20-29 code = 2028-) Calcium (test code = 22456-7) 9.7 mg/dL 8.7-10.2 Protein, Total (test code = 7.2 g/dL 6.0-8.5 2885-2) Albumin (test code = 1751-7) 4.6 g/dL 3.5-5.5 Globulin, Total (test code = 2.6 g/dL 1.5-4.5 60134-5) A/G Ratio (test code = 1.8 1.2-2.2 1759-0) Bilirubin, Total (test code = 0.5 mg/dL 0.0-1.2 1975-2) Alkaline Phosphatase (test 81 IU/L 39-117 code = 6768-6) AST (SGOT) (test code = 25 IU/L 0-40 1920-8) ALT (SGPT) (test code = 21 IU/L 0-44 1742-6) [facility] Description: Comp. Metabolic Panel (142019-05-15 00:23:00 Test Item Value Reference Range Interpretation Comments Glucose (test code = 2345-7) 111 mg/dL 65-99 H BUN (test code = 3094-0) 9 mg/dL 6-24 Creatinine (test code = 0.97 mg/dL 0.76-1.27 2160-0) eGFR If NonAfricn Am (test 91 mL/min/1.73 >59 code = 57109-7) eGFR If Africn Am (test code 105 mL/min/1.73 >59 = 83241-5) BUN/Creatinine Ratio (test 9 05-01 code = 3097-3) Sodium (test code = 2951-2) 141 mmol/L 134-144 Potassium (test code = 4.7 mmol/L 3.5-5.2 2823-3) Chloride (test code = 2075-0) 100 mmol/L 96-106 Carbon Dioxide, Total (test 24 mmol/L code = 2027-9) Calcium (test code = 03372-6) 9.7 mg/dL 8.7-10.2 Protein, Total (test code = 7.2 g/dL 6.0-8.5 2885-2) Albumin (test code = 1751-7) 4.6 g/dL 3.5-5.5 Globulin, Total (test code = 2.6 g/dL 1.5-4.5 84136-5) A/G Ratio (test code = 1.8 1.2-2.2 1759-0) Bilirubin, Total (test code = 0.5 mg/dL 0.0-1.2 1975-2) Alkaline Phosphatase (test 81 IU/L 39-117 code = 6768-6) AST (SGOT) (test code = 25 IU/L 0-40 1920-8) ALT (SGPT) (test code = 21 IU/L 0-44 1742-6) [facility] Description: Comp. Metabolic Panel (2019-05-15 00:23:00 Test Item Value Reference Range Interpretation Comments Glucose (test code = 2345-7) 111 mg/dL 65-99 H BUN (test code = 3094-0) 9 mg/dL 6-24 Creatinine (test code = 0.97 mg/dL 0.76-1.27 2160-0) eGFR If NonAfricn Am (test 91 mL/min/1.73 >59 code = 43346-4) eGFR If Africn Am (test code 105 mL/min/1.73 >59 = 71832-3) BUN/Creatinine Ratio (test 9 -20 code = 3097-3) Sodium (test code = 2951-2) 141 mmol/L 134-144 Potassium (test code = 4.7 mmol/L 3.5-5.2 2823-3) Chloride (test code = 2075-0) 100 mmol/L 96-106 Carbon Dioxide, Total (test 24 mmol/L 20-29 code = 8-9) Calcium (test code = 57032-0) 9.7 mg/dL 8.7-10.2 Protein, Total (test code = 7.2 g/dL 6.0-8.5 2885-2) Albumin (test code = 1751-7) 4.6 g/dL 3.5-5.5 Globulin, Total (test code = 2.6 g/dL 1.5-4.5 76039-6) A/G Ratio (test code = 1.8 1.2-2.2 1759-0) Bilirubin, Total (test code = 0.5 mg/dL 0.0-1.2 1974-) Alkaline Phosphatase (test 81 IU/L 39-117 code = 6768-6) AST (SGOT) (test code = 25 IU/L 0-40 1920-8) ALT (SGPT) (test code = 21 IU/L 0-44 1742-6) [facility] Description: Comp. Metabolic Panel (142019-05-15 00:23:00 Test Item Value Reference Range Interpretation Comments Glucose (test code = 2345-7) 111 mg/dL 65-99 H BUN (test code = 3094-0) 9 mg/dL 6-24 Creatinine (test code = 0.97 mg/dL 0.76-1.27 2160-0) eGFR If NonAfricn Am (test 91 mL/min/1.73 >59 code = 63841-2) eGFR If Africn Am (test code 105 mL/min/1.73 >59 = 25576-6) BUN/Creatinine Ratio (test 9 -20 code = 3097-3) Sodium (test code = 2951-2) 141 mmol/L 134-144 Potassium (test code = 4.7 mmol/L 3.5-5.2 2823-3) Chloride (test code = 2075-0) 100 mmol/L 96-106 Carbon Dioxide, Total (test 24 mmol/L 20-29 code = 2028-9) Calcium (test code = 27631-4) 9.7 mg/dL 8.7-10.2 Protein, Total (test code = 7.2 g/dL 6.0-8.5 2885-2) Albumin (test code = 1751-7) 4.6 g/dL 3.5-5.5 Globulin, Total (test code = 2.6 g/dL 1.5-4.5 86708-2) A/G Ratio (test code = 1.8 1.2-2.2 1759-0) Bilirubin, Total (test code = 0.5 mg/dL 0.0-1.2 1974-) Alkaline Phosphatase (test 81 IU/L 39-117 code = 6768-6) AST (SGOT) (test code = 25 IU/L 0-40 0-8) ALT (SGPT) (test code = 21 IU/L 0-44 1742-6) [facility] Description: Comp. Metabolic [facility] (14)2019-05-15 00:23:00 Test Item Value Reference Range Interpretation Comments Glucose (test code = 2345-7) 111 mg/dL 65-99 H BUN (test code = 3094-0) 9 mg/dL 6-24 Creatinine (test code = 0.97 mg/dL 0.76-1.27 2160-0) eGFR If NonAfricn Am (test 91 mL/min/1.73 >59 code = 09363-8) eGFR If Africn Am (test code 105 mL/min/1.73 >59 = 28470-3) BUN/Creatinine Ratio (test 9 - code = 3097-3) Sodium (test code = 2951-2) 141 mmol/L 134-144 Potassium (test code = 4.7 mmol/L 3.5-5.2 2823-3) Chloride (test code = 2075-0) 100 mmol/L 96-106 Carbon Dioxide, Total (test 24 mmol/L 20-29 code = 8-9) Calcium (test code = 88590-1) 9.7 mg/dL 8.7-10.2 Protein, Total (test code = 7.2 g/dL 6.0-8.5 2885-2) Albumin (test code = 1751-7) 4.6 g/dL 3.5-5.5 Globulin, Total (test code = 2.6 g/dL 1.5-4.5 58533-9) A/G Ratio (test code = 1.8 1.2-2.2 1759-0) Bilirubin, Total (test code = 0.5 mg/dL 0.0-1.2 1975-2) Alkaline Phosphatase (test 81 IU/L 39-117 code = 6768-6) AST (SGOT) (test code = 25 IU/L 0-40 1920-8) ALT (SGPT) (test code = 21 IU/L 0-44 1742-6) [facility] Description: Comp. Metabolic Panel (14)2019-05-15 00:23:00 Test Item Value Reference Range Interpretation Comments Glucose (test code = 2345-7) 111 mg/dL 65-99 H BUN (test code = 3094-0) 9 mg/dL 6-24 Creatinine (test code = 0.97 mg/dL 0.76-1.27 2160-0) eGFR If NonAfricn Am (test 91 mL/min/1.73 >59 code = 05948-1) eGFR If Africn Am (test code 105 mL/min/1.73 >59 = 11852-0) BUN/Creatinine Ratio (test 9 9-20 code = 3097-3) Sodium (test code = 2951-2) 141 mmol/L 134-144 Potassium (test code = 4.7 mmol/L 3.5-5.2 2823-3) Chloride (test code = 2075-0) 100 mmol/L 96-106 Carbon Dioxide, Total (test 24 mmol/L 20-29 code = 2028-9) Calcium (test code = 65407-5) 9.7 mg/dL 8.7-10.2 Protein, Total (test code = 7.2 g/dL 6.0-8.5 2885-2) Albumin (test code = 1751-7) 4.6 g/dL 3.5-5.5 Globulin, Total (test code = 2.6 g/dL 1.5-4.5 89305-0) A/G Ratio (test code = 1.8 1.2-2.2 1759-0) Bilirubin, Total (test code = 0.5 mg/dL 0.0-1.2 1975-2) Alkaline Phosphatase (test 81 IU/L 39-117 code = 6768-6) AST (SGOT) (test code = 25 IU/L 0-40 1920-8) ALT (SGPT) (test code = 21 IU/L 0-44 1742-6) [facility] Description: Comp. Metabolic Panel (142019-05-15 00:23:00 Test Item Value Reference Range Interpretation Comments Glucose (test code = 2345-7) 111 mg/dL 65-99 H BUN (test code = 3094-0) 9 mg/dL 6-24 Creatinine (test code = 0.97 mg/dL 0.76-1.27 2160-0) eGFR If NonAfricn Am (test 91 mL/min/1.73 >59 code = 86762-7) eGFR If Africn Am (test code 105 mL/min/1.73 >59 = 86876-8) BUN/Creatinine Ratio (test 9 05-01 code = 3097-3) Sodium (test code = 2951-2) 141 mmol/L 134-144 Potassium (test code = 4.7 mmol/L 3.5-5.2 2823-3) Chloride (test code = 2075-0) 100 mmol/L 96-106 Carbon Dioxide, Total (test 24 mmol/L 20-29 code = 2028-9) Calcium (test code = 01436-4) 9.7 mg/dL 8.7-10.2 Protein, Total (test code = 7.2 g/dL 6.0-8.5 2885-2) Albumin (test code = 1751-7) 4.6 g/dL 3.5-5.5 Globulin, Total (test code = 2.6 g/dL 1.5-4.5 94276-7) A/G Ratio (test code = 1.8 1.2-2.2 1759-0) Bilirubin, Total (test code = 0.5 mg/dL 0.0-1.2 1975-2) Alkaline Phosphatase (test 81 IU/L 39-117 code = 6768-6) AST (SGOT) (test code = 25 IU/L 0-40 1920-8) ALT (SGPT) (test code = 21 IU/L 0-44 1742-6) [facility] Description: Comp. Metabolic Panel (142019-05-15 00:23:00 Test Item Value Reference Range Interpretation Comments Glucose (test code = 2345-7) 111 mg/dL 65-99 H BUN (test code = 3094-0) 9 mg/dL 6-24 Creatinine (test code = 0.97 mg/dL 0.76-1.27 2160-0) eGFR If NonAfricn Am (test 91 mL/min/1.73 >59 code = 95465-6) eGFR If Africn Am (test code 105 mL/min/1.73 >59 = 44090-1) BUN/Creatinine Ratio (test 9 05-01 code = 3097-3) Sodium (test code = 2951-2) 141 mmol/L 134-144 Potassium (test code = 4.7 mmol/L 3.5-5.2 2823-3) Chloride (test code = 2075-0) 100 mmol/L 96-106 Carbon Dioxide, Total (test 24 mmol/L - code = 2027-) Calcium (test code = 58331-6) 9.7 mg/dL 8.7-10.2 Protein, Total (test code = 7.2 g/dL 6.0-8.5 2885-2) Albumin (test code = 1751-7) 4.6 g/dL 3.5-5.5 Globulin, Total (test code = 2.6 g/dL 1.5-4.5 88151-9) A/G Ratio (test code = 1.8 1.2-2.2 1759-0) Bilirubin, Total (test code = 0.5 mg/dL 0.0-1.2 1975-2) Alkaline Phosphatase (test 81 IU/L 39-117 code = 6768-6) AST (SGOT) (test code = 25 IU/L 0-40 1920-8) ALT (SGPT) (test code = 21 IU/L 0-44 1742-6) [facility] Description: Comp. Metabolic Panel (142019-05-15 00:23:00 Test Item Value Reference Range Interpretation Comments Glucose (test code = 2345-7) 111 mg/dL 65-99 H BUN (test code = 3094-0) 9 mg/dL 6-24 Creatinine (test code = 0.97 mg/dL 0.76-1.27 2160-0) eGFR If NonAfricn Am (test 91 mL/min/1.73 >59 code = 85681-6) eGFR If Africn Am (test code 105 mL/min/1.73 >59 = 06939-7) BUN/Creatinine Ratio (test 9 - code = 3097-3) Sodium (test code = 2951-2) 141 mmol/L 134-144 Potassium (test code = 4.7 mmol/L 3.5-5.2 2823-3) Chloride (test code = 2075-0) 100 mmol/L 96-106 Carbon Dioxide, Total (test 24 mmol/L - code = 2027-9) Calcium (test code = 01843-0) 9.7 mg/dL 8.7-10.2 Protein, Total (test code = 7.2 g/dL 6.0-8.5 2885-2) Albumin (test code = 1751-7) 4.6 g/dL 3.5-5.5 Globulin, Total (test code = 2.6 g/dL 1.5-4.5 96007-2) A/G Ratio (test code = 1.8 1.2-2.2 1759-0) Bilirubin, Total (test code = 0.5 mg/dL 0.0-1.2 1975-2) Alkaline Phosphatase (test 81 IU/L 39-117 code = 6768-6) AST (SGOT) (test code = 25 IU/L 0-40 1920-8) ALT (SGPT) (test code = 21 IU/L 0-44 1742-6) [facility] Description: Comp. Metabolic Panel (14)2019-05-15 00:23:00 Test Item Value Reference Range Interpretation Comments Glucose (test code = 2345-7) 111 mg/dL 65-99 H BUN (test code = 3094-0) 9 mg/dL 6-24 Creatinine (test code = 0.97 mg/dL 0.76-1.27 2160-0) eGFR If NonAfricn Am (test 91 mL/min/1.73 >59 code = 34650-8) eGFR If Africn Am (test code 105 mL/min/1.73 >59 = 99097-4) BUN/Creatinine Ratio (test 9 9-20 code = 3097-3) Sodium (test code = 2951-2) 141 mmol/L 134-144 Potassium (test code = 4.7 mmol/L 3.5-5.2 2823-3) Chloride (test code = 2075-0) 100 mmol/L 96-106 Carbon Dioxide, Total (test 24 mmol/L 20-29 code = 8-9) Calcium (test code = 54449-6) 9.7 mg/dL 8.7-10.2 Protein, Total (test code = 7.2 g/dL 6.0-8.5 2885-2) Albumin (test code = 1751-7) 4.6 g/dL 3.5-5.5 Globulin, Total (test code = 2.6 g/dL 1.5-4.5 35636-3) A/G Ratio (test code = 1.8 1.2-2.2 1759-0) Bilirubin, Total (test code = 0.5 mg/dL 0.0-1.2 1975-2) Alkaline Phosphatase (test 81 IU/L 39-117 code = 6768-6) AST (SGOT) (test code = 25 IU/L 0-40 1920-8) ALT (SGPT) (test code = 21 IU/L 0-44 1742-6) [facility] Description: Comp. Metabolic Panel (142019-05-15 00:23:00 Test Item Value Reference Range Interpretation Comments Glucose (test code = 2345-7) 111 mg/dL 65-99 H BUN (test code = 3094-0) 9 mg/dL 6-24 Creatinine (test code = 0.97 mg/dL 0.76-1.27 2160-0) eGFR If NonAfricn Am (test 91 mL/min/1.73 >59 code = 41870-1) eGFR If Africn Am (test code 105 mL/min/1.73 >59 = 44074-1) BUN/Creatinine Ratio (test 9 9-20 code = 3097-3) Sodium (test code = 2951-2) 141 mmol/L 134-144 Potassium (test code = 4.7 mmol/L 3.5-5.2 2823-3) Chloride (test code = 2075-0) 100 mmol/L 96-106 Carbon Dioxide, Total (test 24 mmol/L 20-29 code = 8-9) Calcium (test code = 89534-7) 9.7 mg/dL 8.7-10.2 Protein, Total (test code = 7.2 g/dL 6.0-8.5 2885-2) Albumin (test code = 1751-7) 4.6 g/dL 3.5-5.5 Globulin, Total (test code = 2.6 g/dL 1.5-4.5 57209-3) A/G Ratio (test code = 1.8 1.2-2.2 1759-0) Bilirubin, Total (test code = 0.5 mg/dL 0.0-1.2 1974-09) Alkaline Phosphatase (test 81 IU/L 39-117 code = 6768-6) AST (SGOT) (test code = 25 IU/L 0-40 1920-8) ALT (SGPT) (test code = 21 IU/L 0-44 1742-6) [facility] Description: Comp. Metabolic Panel (2019-05-15 00:23:00 Test Item Value Reference Range Interpretation Comments Glucose (test code = 2345-7) 111 mg/dL 65-99 H BUN (test code = 3094-0) 9 mg/dL 6-24 Creatinine (test code = 0.97 mg/dL 0.76-1.27 2160-0) eGFR If NonAfricn Am (test 91 mL/min/1.73 >59 code = 03403-0) eGFR If Africn Am (test code 105 mL/min/1.73 >59 = 04682-3) BUN/Creatinine Ratio (test 9 -20 code = 3097-3) Sodium (test code = 2951-2) 141 mmol/L 134-144 Potassium (test code = 4.7 mmol/L 3.5-5.2 2823-3) Chloride (test code = 2075-0) 100 mmol/L 96-106 Carbon Dioxide, Total (test 24 mmol/L 20-29 code = 8-9) Calcium (test code = 85262-4) 9.7 mg/dL 8.7-10.2 Protein, Total (test code = 7.2 g/dL 6.0-8.5 2885-2) Albumin (test code = 1751-7) 4.6 g/dL 3.5-5.5 Globulin, Total (test code = 2.6 g/dL 1.5-4.5 36208-2) A/G Ratio (test code = 1.8 1.2-2.2 1759-0) Bilirubin, Total (test code = 0.5 mg/dL 0.0-1.2 1974-09) Alkaline Phosphatase (test 81 IU/L 39-117 code = 6768-6) AST (SGOT) (test code = 25 IU/L 0-40 1920-8) ALT (SGPT) (test code = 21 IU/L 0-44 1742-6) [facility] Description: Comp. Metabolic Panel (14)2019-05-15 00:23:00 Test Item Value Reference Range Interpretation Comments Glucose (test code = 2345-7) 111 mg/dL 65-99 H BUN (test code = 3094-0) 9 mg/dL 6-24 Creatinine (test code = 0.97 mg/dL 0.76-1.27 2160-0) eGFR If NonAfricn Am (test 91 mL/min/1.73 >59 code = 19782-3) eGFR If Africn Am (test code 105 mL/min/1.73 >59 = 50121-9) BUN/Creatinine Ratio (test 9 -20 code = 3097-3) Sodium (test code = 2951-2) 141 mmol/L 134-144 Potassium (test code = 4.7 mmol/L 3.5-5.2 2823-3) Chloride (test code = 2075-0) 100 mmol/L 96-106 Carbon Dioxide, Total (test 24 mmol/L 20-29 code = 8-9) Calcium (test code = 52642-6) 9.7 mg/dL 8.7-10.2 Protein, Total (test code = 7.2 g/dL 6.0-8.5 2885-2) Albumin (test code = 1751-7) 4.6 g/dL 3.5-5.5 Globulin, Total (test code = 2.6 g/dL 1.5-4.5 50747-5) A/G Ratio (test code = 1.8 1.2-2.2 1759-0) Bilirubin, Total (test code = 0.5 mg/dL 0.0-1.2 1975-2) Alkaline Phosphatase (test 81 IU/L 39-117 code = 6768-6) AST (SGOT) (test code = 25 IU/L 0-40 1920-8) ALT (SGPT) (test code = 21 IU/L 0-44 1742-6) [facility] Description: Comp. Metabolic Panel (14)2019-05-15 00:23:00 Test Item Value Reference Range Interpretation Comments Glucose (test code = 2345-7) 111 mg/dL 65-99 H BUN (test code = 3094-0) 9 mg/dL 6-24 Creatinine (test code = 0.97 mg/dL 0.76-1.27 2160-0) eGFR If NonAfricn Am (test 91 mL/min/1.73 >59 code = 52595-5) eGFR If Africn Am (test code 105 mL/min/1.73 >59 = 90972-2) BUN/Creatinine Ratio (test 9 9-20 code = 3097-3) Sodium (test code = 2951-2) 141 mmol/L 134-144 Potassium (test code = 4.7 mmol/L 3.5-5.2 2823-3) Chloride (test code = 2075-0) 100 mmol/L 96-106 Carbon Dioxide, Total (test 24 mmol/L 20-29 code = 8-9) Calcium (test code = 31402-3) 9.7 mg/dL 8.7-10.2 Protein, Total (test code = 7.2 g/dL 6.0-8.5 2885-2) Albumin (test code = 1751-7) 4.6 g/dL 3.5-5.5 Globulin, Total (test code = 2.6 g/dL 1.5-4.5 83138-6) A/G Ratio (test code = 1.8 1.2-2.2 1759-0) Bilirubin, Total (test code = 0.5 mg/dL 0.0-1.2 1975-2) Alkaline Phosphatase (test 81 IU/L 39-117 code = 6768-6) AST (SGOT) (test code = 25 IU/L 0-40 1920-8) ALT (SGPT) (test code = 21 IU/L 0-44 1742-6) [facility] Description: Comp. Metabolic Panel (142019-05-15 00:23:00 Test Item Value Reference Range Interpretation Comments Glucose (test code = 2345-7) 111 mg/dL 65-99 H BUN (test code = 3094-0) 9 mg/dL 6-24 Creatinine (test code = 0.97 mg/dL 0.76-1.27 2160-0) eGFR If NonAfricn Am (test 91 mL/min/1.73 >59 code = 14807-0) eGFR If Africn Am (test code 105 mL/min/1.73 >59 = 52214-7) BUN/Creatinine Ratio (test 9 05-01 code = 3097-3) Sodium (test code = 2951-2) 141 mmol/L 134-144 Potassium (test code = 4.7 mmol/L 3.5-5.2 2823-3) Chloride (test code = 2075-0) 100 mmol/L 96-106 Carbon Dioxide, Total (test 24 mmol/L 20-29 code = 8-9) Calcium (test code = 45771-6) 9.7 mg/dL 8.7-10.2 Protein, Total (test code = 7.2 g/dL 6.0-8.5 2885-2) Albumin (test code = 1751-7) 4.6 g/dL 3.5-5.5 Globulin, Total (test code = 2.6 g/dL 1.5-4.5 17805-9) A/G Ratio (test code = 1.8 1.2-2.2 1759-0) Bilirubin, Total (test code = 0.5 mg/dL 0.0-1.2 1975-2) Alkaline Phosphatase (test 81 IU/L 39-117 code = 6768-6) AST (SGOT) (test code = 25 IU/L 0-40 1920-8) ALT (SGPT) (test code = 21 IU/L 0-44 1742-6) [facility] Description: Comp. Metabolic Panel (14)2019-05-15 00:23:00 Test Item Value Reference Range Interpretation Comments Glucose (test code = 2345-7) 111 mg/dL 65-99 H BUN (test code = 3094-0) 9 mg/dL 6-24 Creatinine (test code = 0.97 mg/dL 0.76-1.27 2160-0) eGFR If NonAfricn Am (test 91 mL/min/1.73 >59 code = 22274-3) eGFR If Africn Am (test code 105 mL/min/1.73 >59 = 10922-1) BUN/Creatinine Ratio (test 9 05-01 code = 3097-3) Sodium (test code = 2951-2) 141 mmol/L 134-144 Potassium (test code = 4.7 mmol/L 3.5-5.2 2823-3) Chloride (test code = 2075-0) 100 mmol/L 96-106 Carbon Dioxide, Total (test 24 mmol/L - code = 2027-9) Calcium (test code = 15034-8) 9.7 mg/dL 8.7-10.2 Protein, Total (test code = 7.2 g/dL 6.0-8.5 2885-2) Albumin (test code = 1751-7) 4.6 g/dL 3.5-5.5 Globulin, Total (test code = 2.6 g/dL 1.5-4.5 12141-3) A/G Ratio (test code = 1.8 1.2-2.2 1759-0) Bilirubin, Total (test code = 0.5 mg/dL 0.0-1.2 1975-2) Alkaline Phosphatase (test 81 IU/L 39-117 code = 6768-6) AST (SGOT) (test code = 25 IU/L 0-40 1920-8) ALT (SGPT) (test code = 21 IU/L 0-44 1742-6) [facility] Description: Comp. Metabolic Panel (142019-05-15 00:23:00 Test Item Value Reference Range Interpretation Comments Glucose (test code = 2345-7) 111 mg/dL 65-99 H BUN (test code = 3094-0) 9 mg/dL 6-24 Creatinine (test code = 0.97 mg/dL 0.76-1.27 2160-0) eGFR If NonAfricn Am (test 91 mL/min/1.73 >59 code = 69924-0) eGFR If Africn Am (test code 105 mL/min/1.73 >59 = 85762-1) BUN/Creatinine Ratio (test 9 -20 code = 3097-3) Sodium (test code = 2951-2) 141 mmol/L 134-144 Potassium (test code = 4.7 mmol/L 3.5-5.2 2823-3) Chloride (test code = 2075-0) 100 mmol/L 96-106 Carbon Dioxide, Total (test 24 mmol/L - code = 2027-9) Calcium (test code = 12166-5) 9.7 mg/dL 8.7-10.2 Protein, Total (test code = 7.2 g/dL 6.0-8.5 2885-2) Albumin (test code = 1751-7) 4.6 g/dL 3.5-5.5 Globulin, Total (test code = 2.6 g/dL 1.5-4.5 02106-6) A/G Ratio (test code = 1.8 1.2-2.2 1759-0) Bilirubin, Total (test code = 0.5 mg/dL 0.0-1.2 1975-2) Alkaline Phosphatase (test 81 IU/L 39-117 code = 6768-6) AST (SGOT) (test code = 25 IU/L 0-40 1920-8) ALT (SGPT) (test code = 21 IU/L 0-44 1742-6) [facility] Description: Comp. Metabolic Panel (14)2019-05-15 00:23:00 Test Item Value Reference Range Interpretation Comments Glucose (test code = 2345-7) 111 mg/dL 65-99 H BUN (test code = 3094-0) 9 mg/dL 6-24 Creatinine (test code = 0.97 mg/dL 0.76-1.27 2160-0) eGFR If NonAfricn Am (test 91 mL/min/1.73 >59 code = 20108-3) eGFR If Africn Am (test code 105 mL/min/1.73 >59 = 77622-0) BUN/Creatinine Ratio (test 9 9-20 code = 3097-3) Sodium (test code = 2951-2) 141 mmol/L 134-144 Potassium (test code = 4.7 mmol/L 3.5-5.2 2823-3) Chloride (test code = 2075-0) 100 mmol/L 96-106 Carbon Dioxide, Total (test 24 mmol/L 20-29 code = 8-9) Calcium (test code = 35783-7) 9.7 mg/dL 8.7-10.2 Protein, Total (test code = 7.2 g/dL 6.0-8.5 2885-2) Albumin (test code = 1751-7) 4.6 g/dL 3.5-5.5 Globulin, Total (test code = 2.6 g/dL 1.5-4.5 16435-9) A/G Ratio (test code = 1.8 1.2-2.2 1759-0) Bilirubin, Total (test code = 0.5 mg/dL 0.0-1.2 1974-) Alkaline Phosphatase (test 81 IU/L 39-117 code = 6768-6) AST (SGOT) (test code = 25 IU/L 0-40 1920-8) ALT (SGPT) (test code = 21 IU/L 0-44 1742-6) [facility] Description: Comp. Metabolic Panel (14)2019-05-15 00:23:00 Test Item Value Reference Range Interpretation Comments Glucose (test code = 2345-7) 111 mg/dL 65-99 H BUN (test code = 3094-0) 9 mg/dL 6-24 Creatinine (test code = 0.97 mg/dL 0.76-1.27 2160-0) eGFR If NonAfricn Am (test 91 mL/min/1.73 >59 code = 33462-3) eGFR If Africn Am (test code 105 mL/min/1.73 >59 = 10548-1) BUN/Creatinine Ratio (test 9 9-20 code = 3097-3) Sodium (test code = 2951-2) 141 mmol/L 134-144 Potassium (test code = 4.7 mmol/L 3.5-5.2 2823-3) Chloride (test code = 2075-0) 100 mmol/L 96-106 Carbon Dioxide, Total (test 24 mmol/L 20-29 code = 8-9) Calcium (test code = 31782-0) 9.7 mg/dL 8.7-10.2 Protein, Total (test code = 7.2 g/dL 6.0-8.5 2885-2) Albumin (test code = 1751-7) 4.6 g/dL 3.5-5.5 Globulin, Total (test code = 2.6 g/dL 1.5-4.5 83043-3) A/G Ratio (test code = 1.8 1.2-2.2 1759-0) Bilirubin, Total (test code = 0.5 mg/dL 0.0-1.2 1974-) Alkaline Phosphatase (test 81 IU/L 39-117 code = 6768-6) AST (SGOT) (test code = 25 IU/L 0-40 1920-8) ALT (SGPT) (test code = 21 IU/L 0-44 1742-6) [facility] (142019-05-15 00:23:00 Test Item Value Reference Range Interpretation Comments Glucose (test code = 2345-7) 111 mg/dL 65-99 H BUN (test code = 3094-0) 9 mg/dL 6-24 Creatinine (test code = 0.97 mg/dL 0.76-1.27 2160-0) eGFR If NonAfricn Am (test 91 mL/min/1.73 >59 code = 13913-6) eGFR If Africn Am (test code 105 mL/min/1.73 >59 = 46663-4) BUN/Creatinine Ratio (test 9 9-20 code = 3097-3) Sodium (test code = 2951-2) 141 mmol/L 134-144 Potassium (test code = 4.7 mmol/L 3.5-5.2 2823-3) Chloride (test code = 2075-0) 100 mmol/L 96-106 Carbon Dioxide, Total (test 24 mmol/L 20-29 code = 8-9) Calcium (test code = 82980-8) 9.7 mg/dL 8.7-10.2 Protein, Total (test code = 7.2 g/dL 6.0-8.5 2885-2) Albumin (test code = 1751-7) 4.6 g/dL 3.5-5.5 Globulin, Total (test code = 2.6 g/dL 1.5-4.5 71906-0) A/G Ratio (test code = 1.8 1.2-2.2 1759-0) Bilirubin, Total (test code = 0.5 mg/dL 0.0-1.2 1974-) Alkaline Phosphatase (test 81 IU/L 39-117 code = 6768-6) AST (SGOT) (test code = 25 IU/L 0-40 1920-8) ALT (SGPT) (test code = 21 IU/L 0-44 1742-6) [facility] Description: Comp. Metabolic Panel (14)2019-05-15 00:23:00 Test Item Value Reference Range Interpretation Comments Glucose (test code = 2345-7) 111 mg/dL 65-99 H BUN (test code = 3094-0) 9 mg/dL 6-24 Creatinine (test code = 0.97 mg/dL 0.76-1.27 2160-0) eGFR If NonAfricn Am (test 91 mL/min/1.73 >59 code = 98195-6) eGFR If Africn Am (test code 105 mL/min/1.73 >59 = 40983-1) BUN/Creatinine Ratio (test 9 9-20 code = 3097-3) Sodium (test code = 2951-2) 141 mmol/L 134-144 Potassium (test code = 4.7 mmol/L 3.5-5.2 2823-3) Chloride (test code = 2075-0) 100 mmol/L 96-106 Carbon Dioxide, Total (test 24 mmol/L 20-29 code = 8-9) Calcium (test code = 46861-1) 9.7 mg/dL 8.7-10.2 Protein, Total (test code = 7.2 g/dL 6.0-8.5 2885-2) Albumin (test code = 1751-7) 4.6 g/dL 3.5-5.5 Globulin, Total (test code = 2.6 g/dL 1.5-4.5 86240-0) A/G Ratio (test code = 1.8 1.2-2.2 1759-0) Bilirubin, Total (test code = 0.5 mg/dL 0.0-1.2 1975-2) Alkaline Phosphatase (test 81 IU/L 39-117 code = 6768-6) AST (SGOT) (test code = 25 IU/L 0-40 1920-8) ALT (SGPT) (test code = 21 IU/L 0-44 1742-6) [facility]: Comp[facility] Met[facility] Panel (14)2019-05-15 00:23:00 Test Item Value Reference Range Interpretation Comments Glucose (test code = 2345-7) 111 mg/dL 65-99 H BUN (test code = 3094-0) 9 mg/dL 6-24 Creatinine (test code = 0.97 mg/dL 0.76-1.27 2160-0) eGFR If NonAfricn Am (test 91 mL/min/1.73 >59 code = 43500-6) eGFR If Africn Am (test code 105 mL/min/1.73 >59 = 57842-3) BUN/Creatinine Ratio (test 9 9-20 code = 3097-3) Sodium (test code = 2951-2) 141 mmol/L 134-144 Potassium (test code = 4.7 mmol/L 3.5-5.2 2823-3) Chloride (test code = 2075-0) 100 mmol/L 96-106 Carbon Dioxide, Total (test 24 mmol/L 20-29 code = 2028-9) Calcium (test code = 80650-2) 9.7 mg/dL 8.7-10.2 Protein, Total (test code = 7.2 g/dL 6.0-8.5 2885-2) Albumin (test code = 1751-7) 4.6 g/dL 3.5-5.5 Globulin, Total (test code = 2.6 g/dL 1.5-4.5 33055-0) A/G Ratio (test code = 1.8 1.2-2.2 1759-0) Bilirubin, Total (test code = 0.5 mg/dL 0.0-1.2 1975-2) Alkaline Phosphatase (test 81 IU/L 39-117 code = 6768-6) AST (SGOT) (test code = 25 IU/L 0-40 1920-8) ALT (SGPT) (test code = 21 IU/L 0-44 1742-6) [facility] Description: CBC With Differential/[id number] 23:19:00 Test Item Value Reference Range Interpretation Comments WBC (test code = 6690-2) 10.6 x10E3/uL 3.4-10.8 RBC (test code = 789-8) 5.02 x10E6/uL 4.14-5.80 Hemoglobin (test code = 718-7) 17.1 g/dL 13.0-17.7 Hematocrit (test code = 4544-3) 52.8 % 37.5-51.0 H MCV (test code = 787-2) 105 fL 79-97 H MCH (test code = 785-6) 34.1 pg 26.6-33.0 H MCHC (test code = 786-4) 32.4 g/dL 31.5-35.7 RDW (test code = 788-0) 13.4 % 12.3-15.4 Platelets (test code = 777-3) 280 x10E3/uL 150-450 Neutrophils (test code = 770-8) 56 % Not Estab. Lymphs (test code = 736-9) 34 % Not Estab. Monocytes (test code = 5905-5) 7 % Not Estab. Eos (test code = 713-8) 3 % Not Estab. Basos (test code = 706-2) 0 % Not Estab. Neutrophils (Absolute) (test 6.0 x10E3/uL 1.4-7.0 code = 751-8) Lymphs (Absolute) (test code = 3.6 x10E3/uL 0.7-3.1 H 731-0) Monocytes(Absolute) (test code 0.7 x10E3/uL 0.1-0.9 = 742-7) Eos (Absolute) (test code = 0.3 x10E3/uL 0.0-0.4 711-2) Baso (Absolute) (test code = 0.0 x10E3/uL 0.0-0.2 704-7) Immature Granulocytes (test 0 % Not Estab. code = 92845-1) Immature Grans (Abs) (test code 0.0 x10E3/uL 0.0-0.1 = 91637-6) NRBC (test code = 08572-1) Hematology Comments: (test code = 20291-8) [facility] Description: CBC With Differential/[id number] 23:19:00 Test Item Value Reference Range Interpretation Comments WBC (test code = 6690-2) 10.6 x10E3/uL 3.4-10.8 RBC (test code = 789-8) 5.02 x10E6/uL 4.14-5.80 Hemoglobin (test code = 718-7) 17.1 g/dL 13.0-17.7 Hematocrit (test code = 4544-3) 52.8 % 37.5-51.0 H MCV (test code = 787-2) 105 fL 79-97 H MCH (test code = 785-6) 34.1 pg 26.6-33.0 H MCHC (test code = 786-4) 32.4 g/dL 31.5-35.7 RDW (test code = 788-0) 13.4 % 12.3-15.4 Platelets (test code = 777-3) 280 x10E3/uL 150-450 Neutrophils (test code = 770-8) 56 % Not Estab. Lymphs (test code = 736-9) 34 % Not Estab. Monocytes (test code = 5905-5) 7 % Not Estab. Eos (test code = 713-8) 3 % Not Estab. Basos (test code = 706-2) 0 % Not Estab. Neutrophils (Absolute) (test 6.0 x10E3/uL 1.4-7.0 code = 751-8) Lymphs (Absolute) (test code = 3.6 x10E3/uL 0.7-3.1 H 731-0) Monocytes(Absolute) (test code 0.7 x10E3/uL 0.1-0.9 = 742-7) Eos (Absolute) (test code = 0.3 x10E3/uL 0.0-0.4 711-2) Baso (Absolute) (test code = 0.0 x10E3/uL 0.0-0.2 704-7) Immature Granulocytes (test 0 % Not Estab. code = 59571-0) Immature Grans (Abs) (test code 0.0 x10E3/uL 0.0-0.1 = 45439-8) NRBC (test code = 70621-5) Hematology Comments: (test code = 95183-5) [facility] Description: CBC With Differential/[id number] 23:19:00 Test Item Value Reference Range Interpretation Comments WBC (test code = 6690-2) 10.6 x10E3/uL 3.4-10.8 RBC (test code = 789-8) 5.02 x10E6/uL 4.14-5.80 Hemoglobin (test code = 718-7) 17.1 g/dL 13.0-17.7 Hematocrit (test code = 4544-3) 52.8 % 37.5-51.0 H MCV (test code = 787-2) 105 fL 79-97 H MCH (test code = 785-6) 34.1 pg 26.6-33.0 H MCHC (test code = 786-4) 32.4 g/dL 31.5-35.7 RDW (test code = 788-0) 13.4 % 12.3-15.4 Platelets (test code = 777-3) 280 x10E3/uL 150-450 Neutrophils (test code = 770-8) 56 % Not Estab. Lymphs (test code = 736-9) 34 % Not Estab. Monocytes (test code = 5905-5) 7 % Not Estab. Eos (test code = 713-8) 3 % Not Estab. Basos (test code = 706-2) 0 % Not Estab. Neutrophils (Absolute) (test 6.0 x10E3/uL 1.4-7.0 code = 751-8) Lymphs (Absolute) (test code = 3.6 x10E3/uL 0.7-3.1 H 731-0) Monocytes(Absolute) (test code 0.7 x10E3/uL 0.1-0.9 = 742-7) Eos (Absolute) (test code = 0.3 x10E3/uL 0.0-0.4 711-2) Baso (Absolute) (test code = 0.0 x10E3/uL 0.0-0.2 704-7) Immature Granulocytes (test 0 % Not Estab. code = 73089-2) Immature Grans (Abs) (test code 0.0 x10E3/uL 0.0-0.1 = 46211-2) NRBC (test code = 33101-0) Hematology Comments: (test code = 33801-0) [facility] Description: CBC With Differential/[id number] 23:19:00 Test Item Value Reference Range Interpretation Comments WBC (test code = 6690-2) 10.6 x10E3/uL 3.4-10.8 RBC (test code = 789-8) 5.02 x10E6/uL 4.14-5.80 Hemoglobin (test code = 718-7) 17.1 g/dL 13.0-17.7 Hematocrit (test code = 4544-3) 52.8 % 37.5-51.0 H MCV (test code = 787-2) 105 fL 79-97 H MCH (test code = 785-6) 34.1 pg 26.6-33.0 H MCHC (test code = 786-4) 32.4 g/dL 31.5-35.7 RDW (test code = 788-0) 13.4 % 12.3-15.4 Platelets (test code = 777-3) 280 x10E3/uL 150-450 Neutrophils (test code = 770-8) 56 % Not Estab. Lymphs (test code = 736-9) 34 % Not Estab. Monocytes (test code = 5905-5) 7 % Not Estab. Eos (test code = 713-8) 3 % Not Estab. Basos (test code = 706-2) 0 % Not Estab. Neutrophils (Absolute) (test 6.0 x10E3/uL 1.4-7.0 code = 751-8) Lymphs (Absolute) (test code = 3.6 x10E3/uL 0.7-3.1 H 731-0) Monocytes(Absolute) (test code 0.7 x10E3/uL 0.1-0.9 = 742-7) Eos (Absolute) (test code = 0.3 x10E3/uL 0.0-0.4 711-2) Baso (Absolute) (test code = 0.0 x10E3/uL 0.0-0.2 704-7) Immature Granulocytes (test 0 % Not Estab. code = 36259-0) Immature Grans (Abs) (test code 0.0 x10E3/uL 0.0-0.1 = 14035-3) NRBC (test code = 59534-6) Hematology Comments: (test code = 60045-8) [facility] Description: CBC With Differential/[id number] 23:19:00 Test Item Value Reference Range Interpretation Comments WBC (test code = 6690-2) 10.6 x10E3/uL 3.4-10.8 RBC (test code = 789-8) 5.02 x10E6/uL 4.14-5.80 Hemoglobin (test code = 718-7) 17.1 g/dL 13.0-17.7 Hematocrit (test code = 4544-3) 52.8 % 37.5-51.0 H MCV (test code = 787-2) 105 fL 79-97 H MCH (test code = 785-6) 34.1 pg 26.6-33.0 H MCHC (test code = 786-4) 32.4 g/dL 31.5-35.7 RDW (test code = 788-0) 13.4 % 12.3-15.4 Platelets (test code = 777-3) 280 x10E3/uL 150-450 Neutrophils (test code = 770-8) 56 % Not Estab. Lymphs (test code = 736-9) 34 % Not Estab. Monocytes (test code = 5905-5) 7 % Not Estab. Eos (test code = 713-8) 3 % Not Estab. Basos (test code = 706-2) 0 % Not Estab. Neutrophils (Absolute) (test 6.0 x10E3/uL 1.4-7.0 code = 751-8) Lymphs (Absolute) (test code = 3.6 x10E3/uL 0.7-3.1 H 731-0) Monocytes(Absolute) (test code 0.7 x10E3/uL 0.1-0.9 = 742-7) Eos (Absolute) (test code = 0.3 x10E3/uL 0.0-0.4 711-2) Baso (Absolute) (test code = 0.0 x10E3/uL 0.0-0.2 704-7) Immature Granulocytes (test 0 % Not Estab. code = 01131-8) Immature Grans (Abs) (test code 0.0 x10E3/uL 0.0-0.1 = 72933-2) NRBC (test code = 24904-9) Hematology Comments: (test code = 83839-5) [facility] Description: CBC With Differential/[id number] 23:19:00 Test Item Value Reference Range Interpretation Comments WBC (test code = 6690-2) 10.6 x10E3/uL 3.4-10.8 RBC (test code = 789-8) 5.02 x10E6/uL 4.14-5.80 Hemoglobin (test code = 718-7) 17.1 g/dL 13.0-17.7 Hematocrit (test code = 4544-3) 52.8 % 37.5-51.0 H MCV (test code = 787-2) 105 fL 79-97 H MCH (test code = 785-6) 34.1 pg 26.6-33.0 H MCHC (test code = 786-4) 32.4 g/dL 31.5-35.7 RDW (test code = 788-0) 13.4 % 12.3-15.4 Platelets (test code = 777-3) 280 x10E3/uL 150-450 Neutrophils (test code = 770-8) 56 % Not Estab. Lymphs (test code = 736-9) 34 % Not Estab. Monocytes (test code = 5905-5) 7 % Not Estab. Eos (test code = 713-8) 3 % Not Estab. Basos (test code = 706-2) 0 % Not Estab. Neutrophils (Absolute) (test 6.0 x10E3/uL 1.4-7.0 code = 751-8) Lymphs (Absolute) (test code = 3.6 x10E3/uL 0.7-3.1 H 731-0) Monocytes(Absolute) (test code 0.7 x10E3/uL 0.1-0.9 = 742-7) Eos (Absolute) (test code = 0.3 x10E3/uL 0.0-0.4 711-2) Baso (Absolute) (test code = 0.0 x10E3/uL 0.0-0.2 704-7) Immature Granulocytes (test 0 % Not Estab. code = 53528-4) Immature Grans (Abs) (test code 0.0 x10E3/uL 0.0-0.1 = 40150-4) NRBC (test code = 72199-0) Hematology Comments: (test code = 38067-6) [facility] Description: CBC With Differential/[id number] 23:19:00 Test Item Value Reference Range Interpretation Comments WBC (test code = 6690-2) 10.6 x10E3/uL 3.4-10.8 RBC (test code = 789-8) 5.02 x10E6/uL 4.14-5.80 Hemoglobin (test code = 718-7) 17.1 g/dL 13.0-17.7 Hematocrit (test code = 4544-3) 52.8 % 37.5-51.0 H MCV (test code = 787-2) 105 fL 79-97 H MCH (test code = 785-6) 34.1 pg 26.6-33.0 H MCHC (test code = 786-4) 32.4 g/dL 31.5-35.7 RDW (test code = 788-0) 13.4 % 12.3-15.4 Platelets (test code = 777-3) 280 x10E3/uL 150-450 Neutrophils (test code = 770-8) 56 % Not Estab. Lymphs (test code = 736-9) 34 % Not Estab. Monocytes (test code = 5905-5) 7 % Not Estab. Eos (test code = 713-8) 3 % Not Estab. Basos (test code = 706-2) 0 % Not Estab. Neutrophils (Absolute) (test 6.0 x10E3/uL 1.4-7.0 code = 751-8) Lymphs (Absolute) (test code = 3.6 x10E3/uL 0.7-3.1 H 731-0) Monocytes(Absolute) (test code 0.7 x10E3/uL 0.1-0.9 = 742-7) Eos (Absolute) (test code = 0.3 x10E3/uL 0.0-0.4 711-2) Baso (Absolute) (test code = 0.0 x10E3/uL 0.0-0.2 704-7) Immature Granulocytes (test 0 % Not Estab. code = 21220-5) Immature Grans (Abs) (test code 0.0 x10E3/uL 0.0-0.1 = 87765-5) NRBC (test code = 89200-4) Hematology Comments: (test code = 65100-4) [facility] Description: CBC With Differential/[id number] 23:19:00 Test Item Value Reference Range Interpretation Comments WBC (test code = 6690-2) 10.6 x10E3/uL 3.4-10.8 RBC (test code = 789-8) 5.02 x10E6/uL 4.14-5.80 Hemoglobin (test code = 718-7) 17.1 g/dL 13.0-17.7 Hematocrit (test code = 4544-3) 52.8 % 37.5-51.0 H MCV (test code = 787-2) 105 fL 79-97 H MCH (test code = 785-6) 34.1 pg 26.6-33.0 H MCHC (test code = 786-4) 32.4 g/dL 31.5-35.7 RDW (test code = 788-0) 13.4 % 12.3-15.4 Platelets (test code = 777-3) 280 x10E3/uL 150-450 Neutrophils (test code = 770-8) 56 % Not Estab. Lymphs (test code = 736-9) 34 % Not Estab. Monocytes (test code = 5905-5) 7 % Not Estab. Eos (test code = 713-8) 3 % Not Estab. Basos (test code = 706-2) 0 % Not Estab. Neutrophils (Absolute) (test 6.0 x10E3/uL 1.4-7.0 code = 751-8) Lymphs (Absolute) (test code = 3.6 x10E3/uL 0.7-3.1 H 731-0) Monocytes(Absolute) (test code 0.7 x10E3/uL 0.1-0.9 = 742-7) Eos (Absolute) (test code = 0.3 x10E3/uL 0.0-0.4 711-2) Baso (Absolute) (test code = 0.0 x10E3/uL 0.0-0.2 704-7) Immature Granulocytes (test 0 % Not Estab. code = 22403-0) Immature Grans (Abs) (test code 0.0 x10E3/uL 0.0-0.1 = 53918-2) NRBC (test code = 54740-0) Hematology Comments: (test code = 88023-5) [facility] Description: CBC With Differential/[id number] 23:19:00 Test Item Value Reference Range Interpretation Comments WBC (test code = 6690-2) 10.6 x10E3/uL 3.4-10.8 RBC (test code = 789-8) 5.02 x10E6/uL 4.14-5.80 Hemoglobin (test code = 718-7) 17.1 g/dL 13.0-17.7 Hematocrit (test code = 4544-3) 52.8 % 37.5-51.0 H MCV (test code = 787-2) 105 fL 79-97 H MCH (test code = 785-6) 34.1 pg 26.6-33.0 H MCHC (test code = 786-4) 32.4 g/dL 31.5-35.7 RDW (test code = 788-0) 13.4 % 12.3-15.4 Platelets (test code = 777-3) 280 x10E3/uL 150-450 Neutrophils (test code = 770-8) 56 % Not Estab. Lymphs (test code = 736-9) 34 % Not Estab. Monocytes (test code = 5905-5) 7 % Not Estab. Eos (test code = 713-8) 3 % Not Estab. Basos (test code = 706-2) 0 % Not Estab. Neutrophils (Absolute) (test 6.0 x10E3/uL 1.4-7.0 code = 751-8) Lymphs (Absolute) (test code = 3.6 x10E3/uL 0.7-3.1 H 731-0) Monocytes(Absolute) (test code 0.7 x10E3/uL 0.1-0.9 = 742-7) Eos (Absolute) (test code = 0.3 x10E3/uL 0.0-0.4 711-2) Baso (Absolute) (test code = 0.0 x10E3/uL 0.0-0.2 704-7) Immature Granulocytes (test 0 % Not Estab. code = 56468-6) Immature Grans (Abs) (test code 0.0 x10E3/uL 0.0-0.1 = 73112-1) NRBC (test code = 44809-9) Hematology Comments: (test code = 43383-9) [facility] Description: CBC With Differential/[id number] 23:19:00 Test Item Value Reference Range Interpretation Comments WBC (test code = 6690-2) 10.6 x10E3/uL 3.4-10.8 RBC (test code = 789-8) 5.02 x10E6/uL 4.14-5.80 Hemoglobin (test code = 718-7) 17.1 g/dL 13.0-17.7 Hematocrit (test code = 4544-3) 52.8 % 37.5-51.0 H MCV (test code = 787-2) 105 fL 79-97 H MCH (test code = 785-6) 34.1 pg 26.6-33.0 H MCHC (test code = 786-4) 32.4 g/dL 31.5-35.7 RDW (test code = 788-0) 13.4 % 12.3-15.4 Platelets (test code = 777-3) 280 x10E3/uL 150-450 Neutrophils (test code = 770-8) 56 % Not Estab. Lymphs (test code = 736-9) 34 % Not Estab. Monocytes (test code = 5905-5) 7 % Not Estab. Eos (test code = 713-8) 3 % Not Estab. Basos (test code = 706-2) 0 % Not Estab. Neutrophils (Absolute) (test 6.0 x10E3/uL 1.4-7.0 code = 751-8) Lymphs (Absolute) (test code = 3.6 x10E3/uL 0.7-3.1 H 731-0) Monocytes(Absolute) (test code 0.7 x10E3/uL 0.1-0.9 = 742-7) Eos (Absolute) (test code = 0.3 x10E3/uL 0.0-0.4 711-2) Baso (Absolute) (test code = 0.0 x10E3/uL 0.0-0.2 704-7) Immature Granulocytes (test 0 % Not Estab. code = 05448-9) Immature Grans (Abs) (test code 0.0 x10E3/uL 0.0-0.1 = 71105-4) NRBC (test code = 89896-1) Hematology Comments: (test code = 77486-6) [facility] Description: CBC With Differential/[id number] 23:19:00 Test Item Value Reference Range Interpretation Comments WBC (test code = 6690-2) 10.6 x10E3/uL 3.4-10.8 RBC (test code = 789-8) 5.02 x10E6/uL 4.14-5.80 Hemoglobin (test code = 718-7) 17.1 g/dL 13.0-17.7 Hematocrit (test code = 4544-3) 52.8 % 37.5-51.0 H MCV (test code = 787-2) 105 fL 79-97 H MCH (test code = 785-6) 34.1 pg 26.6-33.0 H MCHC (test code = 786-4) 32.4 g/dL 31.5-35.7 RDW (test code = 788-0) 13.4 % 12.3-15.4 Platelets (test code = 777-3) 280 x10E3/uL 150-450 Neutrophils (test code = 770-8) 56 % Not Estab. Lymphs (test code = 736-9) 34 % Not Estab. Monocytes (test code = 5905-5) 7 % Not Estab. Eos (test code = 713-8) 3 % Not Estab. Basos (test code = 706-2) 0 % Not Estab. Neutrophils (Absolute) (test 6.0 x10E3/uL 1.4-7.0 code = 751-8) Lymphs (Absolute) (test code = 3.6 x10E3/uL 0.7-3.1 H 731-0) Monocytes(Absolute) (test code 0.7 x10E3/uL 0.1-0.9 = 742-7) Eos (Absolute) (test code = 0.3 x10E3/uL 0.0-0.4 711-2) Baso (Absolute) (test code = 0.0 x10E3/uL 0.0-0.2 704-7) Immature Granulocytes (test 0 % Not Estab. code = 33738-3) Immature Grans (Abs) (test code 0.0 x10E3/uL 0.0-0.1 = 44651-2) NRBC (test code = 82616-3) Hematology Comments: (test code = 18256-9) [facility] Description: CBC With Differential/Epaymzhz1011-71-93 23:19:00 Test Item Value Reference Range Interpretation Comments WBC (test code = 6690-2) 10.6 x10E3/uL 3.4-10.8 RBC (test code = 789-8) 5.02 x10E6/uL 4.14-5.80 Hemoglobin (test code = 718-7) 17.1 g/dL 13.0-17.7 Hematocrit (test code = 4544-3) 52.8 % 37.5-51.0 H MCV (test code = 787-2) 105 fL 79-97 H MCH (test code = 785-6) 34.1 pg 26.6-33.0 H MCHC (test code = 786-4) 32.4 g/dL 31.5-35.7 RDW (test code = 788-0) 13.4 % 12.3-15.4 Platelets (test code = 777-3) 280 x10E3/uL 150-450 Neutrophils (test code = 770-8) 56 % Not Estab. Lymphs (test code = 736-9) 34 % Not Estab. Monocytes (test code = 5905-5) 7 % Not Estab. Eos (test code = 713-8) 3 % Not Estab. Basos (test code = 706-2) 0 % Not Estab. Neutrophils (Absolute) (test 6.0 x10E3/uL 1.4-7.0 code = 751-8) Lymphs (Absolute) (test code = 3.6 x10E3/uL 0.7-3.1 H 731-0) Monocytes(Absolute) (test code 0.7 x10E3/uL 0.1-0.9 = 742-7) Eos (Absolute) (test code = 0.3 x10E3/uL 0.0-0.4 711-2) Baso (Absolute) (test code = 0.0 x10E3/uL 0.0-0.2 704-7) Immature Granulocytes (test 0 % Not Estab. code = 61242-8) Immature Grans (Abs) (test code 0.0 x10E3/uL 0.0-0.1 = 31903-1) NRBC (test code = 51384-6) Hematology Comments: (test code = 21302-9) [facility] Description: CBC With Differential/Ikjctaes8110-87-27 23:19:00 Test Item Value Reference Range Interpretation Comments WBC (test code = 6690-2) 10.6 x10E3/uL 3.4-10.8 RBC (test code = 789-8) 5.02 x10E6/uL 4.14-5.80 Hemoglobin (test code = 718-7) 17.1 g/dL 13.0-17.7 Hematocrit (test code = 4544-3) 52.8 % 37.5-51.0 H MCV (test code = 787-2) 105 fL 79-97 H MCH (test code = 785-6) 34.1 pg 26.6-33.0 H MCHC (test code = 786-4) 32.4 g/dL 31.5-35.7 RDW (test code = 788-0) 13.4 % 12.3-15.4 Platelets (test code = 777-3) 280 x10E3/uL 150-450 Neutrophils (test code = 770-8) 56 % Not Estab. Lymphs (test code = 736-9) 34 % Not Estab. Monocytes (test code = 5905-5) 7 % Not Estab. Eos (test code = 713-8) 3 % Not Estab. Basos (test code = 706-2) 0 % Not Estab. Neutrophils (Absolute) (test 6.0 x10E3/uL 1.4-7.0 code = 751-8) Lymphs (Absolute) (test code = 3.6 x10E3/uL 0.7-3.1 H 731-0) Monocytes(Absolute) (test code 0.7 x10E3/uL 0.1-0.9 = 742-7) Eos (Absolute) (test code = 0.3 x10E3/uL 0.0-0.4 711-2) Baso (Absolute) (test code = 0.0 x10E3/uL 0.0-0.2 704-7) Immature Granulocytes (test 0 % Not Estab. code = 96160-0) Immature Grans (Abs) (test code 0.0 x10E3/uL 0.0-0.1 = 93934-3) NRBC (test code = 84545-9) Hematology Comments: (test code = 38776-0) [facility] Description: CBC With Differential/Vszhotgq7907-04-67 23:19:00 Test Item Value Reference Range Interpretation Comments WBC (test code = 6690-2) 10.6 x10E3/uL 3.4-10.8 RBC (test code = 789-8) 5.02 x10E6/uL 4.14-5.80 Hemoglobin (test code = 718-7) 17.1 g/dL 13.0-17.7 Hematocrit (test code = 4544-3) 52.8 % 37.5-51.0 H MCV (test code = 787-2) 105 fL 79-97 H MCH (test code = 785-6) 34.1 pg 26.6-33.0 H MCHC (test code = 786-4) 32.4 g/dL 31.5-35.7 RDW (test code = 788-0) 13.4 % 12.3-15.4 Platelets (test code = 777-3) 280 x10E3/uL 150-450 Neutrophils (test code = 770-8) 56 % Not Estab. Lymphs (test code = 736-9) 34 % Not Estab. Monocytes (test code = 5905-5) 7 % Not Estab. Eos (test code = 713-8) 3 % Not Estab. Basos (test code = 706-2) 0 % Not Estab. Neutrophils (Absolute) (test 6.0 x10E3/uL 1.4-7.0 code = 751-8) Lymphs (Absolute) (test code = 3.6 x10E3/uL 0.7-3.1 H 731-0) Monocytes(Absolute) (test code 0.7 x10E3/uL 0.1-0.9 = 742-7) Eos (Absolute) (test code = 0.3 x10E3/uL 0.0-0.4 711-2) Baso (Absolute) (test code = 0.0 x10E3/uL 0.0-0.2 704-7) Immature Granulocytes (test 0 % Not Estab. code = 22994-8) Immature Grans (Abs) (test code 0.0 x10E3/uL 0.0-0.1 = 48697-0) NRBC (test code = 43239-8) Hematology Comments: (test code = 51772-7) [facility] Description: CBC With Differential/[id number] 23:19:00 Test Item Value Reference Range Interpretation Comments WBC (test code = 6690-2) 10.6 x10E3/uL 3.4-10.8 RBC (test code = 789-8) 5.02 x10E6/uL 4.14-5.80 Hemoglobin (test code = 718-7) 17.1 g/dL 13.0-17.7 Hematocrit (test code = 4544-3) 52.8 % 37.5-51.0 H MCV (test code = 787-2) 105 fL 79-97 H MCH (test code = 785-6) 34.1 pg 26.6-33.0 H MCHC (test code = 786-4) 32.4 g/dL 31.5-35.7 RDW (test code = 788-0) 13.4 % 12.3-15.4 Platelets (test code = 777-3) 280 x10E3/uL 150-450 Neutrophils (test code = 770-8) 56 % Not Estab. Lymphs (test code = 736-9) 34 % Not Estab. Monocytes (test code = 5905-5) 7 % Not Estab. Eos (test code = 713-8) 3 % Not Estab. Basos (test code = 706-2) 0 % Not Estab. Neutrophils (Absolute) (test 6.0 x10E3/uL 1.4-7.0 code = 751-8) Lymphs (Absolute) (test code = 3.6 x10E3/uL 0.7-3.1 H 731-0) Monocytes(Absolute) (test code 0.7 x10E3/uL 0.1-0.9 = 742-7) Eos (Absolute) (test code = 0.3 x10E3/uL 0.0-0.4 711-2) Baso (Absolute) (test code = 0.0 x10E3/uL 0.0-0.2 704-7) Immature Granulocytes (test 0 % Not Estab. code = 22609-9) Immature Grans (Abs) (test code 0.0 x10E3/uL 0.0-0.1 = 00511-0) NRBC (test code = 01154-5) Hematology Comments: (test code = 57874-3) [facility] Description: CBC With Differential/[id number] 23:19:00 Test Item Value Reference Range Interpretation Comments WBC (test code = 6690-2) 10.6 x10E3/uL 3.4-10.8 RBC (test code = 789-8) 5.02 x10E6/uL 4.14-5.80 Hemoglobin (test code = 718-7) 17.1 g/dL 13.0-17.7 Hematocrit (test code = 4544-3) 52.8 % 37.5-51.0 H MCV (test code = 787-2) 105 fL 79-97 H MCH (test code = 785-6) 34.1 pg 26.6-33.0 H MCHC (test code = 786-4) 32.4 g/dL 31.5-35.7 RDW (test code = 788-0) 13.4 % 12.3-15.4 Platelets (test code = 777-3) 280 x10E3/uL 150-450 Neutrophils (test code = 770-8) 56 % Not Estab. Lymphs (test code = 736-9) 34 % Not Estab. Monocytes (test code = 5905-5) 7 % Not Estab. Eos (test code = 713-8) 3 % Not Estab. Basos (test code = 706-2) 0 % Not Estab. Neutrophils (Absolute) (test 6.0 x10E3/uL 1.4-7.0 code = 751-8) Lymphs (Absolute) (test code = 3.6 x10E3/uL 0.7-3.1 H 731-0) Monocytes(Absolute) (test code 0.7 x10E3/uL 0.1-0.9 = 742-7) Eos (Absolute) (test code = 0.3 x10E3/uL 0.0-0.4 711-2) Baso (Absolute) (test code = 0.0 x10E3/uL 0.0-0.2 704-7) Immature Granulocytes (test 0 % Not Estab. code = 85917-4) Immature Grans (Abs) (test code 0.0 x10E3/uL 0.0-0.1 = 26726-3) NRBC (test code = 19574-0) Hematology Comments: (test code = 47611-2) [facility] Description: CBC With Differential/Jlosrugh1144-01-81 23:19:00 Test Item Value Reference Range Interpretation Comments WBC (test code = 6690-2) 10.6 x10E3/uL 3.4-10.8 RBC (test code = 789-8) 5.02 x10E6/uL 4.14-5.80 Hemoglobin (test code = 718-7) 17.1 g/dL 13.0-17.7 Hematocrit (test code = 4544-3) 52.8 % 37.5-51.0 H MCV (test code = 787-2) 105 fL 79-97 H MCH (test code = 785-6) 34.1 pg 26.6-33.0 H MCHC (test code = 786-4) 32.4 g/dL 31.5-35.7 RDW (test code = 788-0) 13.4 % 12.3-15.4 Platelets (test code = 777-3) 280 x10E3/uL 150-450 Neutrophils (test code = 770-8) 56 % Not Estab. Lymphs (test code = 736-9) 34 % Not Estab. Monocytes (test code = 5905-5) 7 % Not Estab. Eos (test code = 713-8) 3 % Not Estab. Basos (test code = 706-2) 0 % Not Estab. Neutrophils (Absolute) (test 6.0 x10E3/uL 1.4-7.0 code = 751-8) Lymphs (Absolute) (test code = 3.6 x10E3/uL 0.7-3.1 H 731-0) Monocytes(Absolute) (test code 0.7 x10E3/uL 0.1-0.9 = 742-7) Eos (Absolute) (test code = 0.3 x10E3/uL 0.0-0.4 711-2) Baso (Absolute) (test code = 0.0 x10E3/uL 0.0-0.2 704-7) Immature Granulocytes (test 0 % Not Estab. code = 38000-3) Immature Grans (Abs) (test code 0.0 x10E3/uL 0.0-0.1 = 11729-9) NRBC (test code = 66857-0) Hematology Comments: (test code = 25377-1) [facility] Description: CBC With Differential/[id number] 23:19:00 Test Item Value Reference Range Interpretation Comments WBC (test code = 6690-2) 10.6 x10E3/uL 3.4-10.8 RBC (test code = 789-8) 5.02 x10E6/uL 4.14-5.80 Hemoglobin (test code = 718-7) 17.1 g/dL 13.0-17.7 Hematocrit (test code = 4544-3) 52.8 % 37.5-51.0 H MCV (test code = 787-2) 105 fL 79-97 H MCH (test code = 785-6) 34.1 pg 26.6-33.0 H MCHC (test code = 786-4) 32.4 g/dL 31.5-35.7 RDW (test code = 788-0) 13.4 % 12.3-15.4 Platelets (test code = 777-3) 280 x10E3/uL 150-450 Neutrophils (test code = 770-8) 56 % Not Estab. Lymphs (test code = 736-9) 34 % Not Estab. Monocytes (test code = 5905-5) 7 % Not Estab. Eos (test code = 713-8) 3 % Not Estab. Basos (test code = 706-2) 0 % Not Estab. Neutrophils (Absolute) (test 6.0 x10E3/uL 1.4-7.0 code = 751-8) Lymphs (Absolute) (test code = 3.6 x10E3/uL 0.7-3.1 H 731-0) Monocytes(Absolute) (test code 0.7 x10E3/uL 0.1-0.9 = 742-7) Eos (Absolute) (test code = 0.3 x10E3/uL 0.0-0.4 711-2) Baso (Absolute) (test code = 0.0 x10E3/uL 0.0-0.2 704-7) Immature Granulocytes (test 0 % Not Estab. code = 49435-2) Immature Grans (Abs) (test code 0.0 x10E3/uL 0.0-0.1 = 31747-6) NRBC (test code = 72304-7) Hematology Comments: (test code = 20980-6) [facility] Description: CBC With Differential/[id number] 23:19:00 Test Item Value Reference Range Interpretation Comments WBC (test code = 6690-2) 10.6 x10E3/uL 3.4-10.8 RBC (test code = 789-8) 5.02 x10E6/uL 4.14-5.80 Hemoglobin (test code = 718-7) 17.1 g/dL 13.0-17.7 Hematocrit (test code = 4544-3) 52.8 % 37.5-51.0 H MCV (test code = 787-2) 105 fL 79-97 H MCH (test code = 785-6) 34.1 pg 26.6-33.0 H MCHC (test code = 786-4) 32.4 g/dL 31.5-35.7 RDW (test code = 788-0) 13.4 % 12.3-15.4 Platelets (test code = 777-3) 280 x10E3/uL 150-450 Neutrophils (test code = 770-8) 56 % Not Estab. Lymphs (test code = 736-9) 34 % Not Estab. Monocytes (test code = 5905-5) 7 % Not Estab. Eos (test code = 713-8) 3 % Not Estab. Basos (test code = 706-2) 0 % Not Estab. Neutrophils (Absolute) (test 6.0 x10E3/uL 1.4-7.0 code = 751-8) Lymphs (Absolute) (test code = 3.6 x10E3/uL 0.7-3.1 H 731-0) Monocytes(Absolute) (test code 0.7 x10E3/uL 0.1-0.9 = 742-7) Eos (Absolute) (test code = 0.3 x10E3/uL 0.0-0.4 711-2) Baso (Absolute) (test code = 0.0 x10E3/uL 0.0-0.2 704-7) Immature Granulocytes (test 0 % Not Estab. code = 55238-3) Immature Grans (Abs) (test code 0.0 x10E3/uL 0.0-0.1 = 50603-6) NRBC (test code = 11779-6) Hematology Comments: (test code = 12336-9) [facility] Description: CBC With Differential/[id number] 23:19:00 Test Item Value Reference Range Interpretation Comments WBC (test code = 6690-2) 10.6 x10E3/uL 3.4-10.8 RBC (test code = 789-8) 5.02 x10E6/uL 4.14-5.80 Hemoglobin (test code = 718-7) 17.1 g/dL 13.0-17.7 Hematocrit (test code = 4544-3) 52.8 % 37.5-51.0 H MCV (test code = 787-2) 105 fL 79-97 H MCH (test code = 785-6) 34.1 pg 26.6-33.0 H MCHC (test code = 786-4) 32.4 g/dL 31.5-35.7 RDW (test code = 788-0) 13.4 % 12.3-15.4 Platelets (test code = 777-3) 280 x10E3/uL 150-450 Neutrophils (test code = 770-8) 56 % Not Estab. Lymphs (test code = 736-9) 34 % Not Estab. Monocytes (test code = 5905-5) 7 % Not Estab. Eos (test code = 713-8) 3 % Not Estab. Basos (test code = 706-2) 0 % Not Estab. Neutrophils (Absolute) (test 6.0 x10E3/uL 1.4-7.0 code = 751-8) Lymphs (Absolute) (test code = 3.6 x10E3/uL 0.7-3.1 H 731-0) Monocytes(Absolute) (test code 0.7 x10E3/uL 0.1-0.9 = 742-7) Eos (Absolute) (test code = 0.3 x10E3/uL 0.0-0.4 711-2) Baso (Absolute) (test code = 0.0 x10E3/uL 0.0-0.2 704-7) Immature Granulocytes (test 0 % Not Estab. code = 43904-2) Immature Grans (Abs) (test code 0.0 x10E3/uL 0.0-0.1 = 67173-8) NRBC (test code = 21105-6) Hematology Comments: (test code = 56566-7) [facility] Description: CBC With Differential/[id number] 23:19:00 Test Item Value Reference Range Interpretation Comments WBC (test code = 6690-2) 10.6 x10E3/uL 3.4-10.8 RBC (test code = 789-8) 5.02 x10E6/uL 4.14-5.80 Hemoglobin (test code = 718-7) 17.1 g/dL 13.0-17.7 Hematocrit (test code = 4544-3) 52.8 % 37.5-51.0 H MCV (test code = 787-2) 105 fL 79-97 H MCH (test code = 785-6) 34.1 pg 26.6-33.0 H MCHC (test code = 786-4) 32.4 g/dL 31.5-35.7 RDW (test code = 788-0) 13.4 % 12.3-15.4 Platelets (test code = 777-3) 280 x10E3/uL 150-450 Neutrophils (test code = 770-8) 56 % Not Estab. Lymphs (test code = 736-9) 34 % Not Estab. Monocytes (test code = 5905-5) 7 % Not Estab. Eos (test code = 713-8) 3 % Not Estab. Basos (test code = 706-2) 0 % Not Estab. Neutrophils (Absolute) (test 6.0 x10E3/uL 1.4-7.0 code = 751-8) Lymphs (Absolute) (test code = 3.6 x10E3/uL 0.7-3.1 H 731-0) Monocytes(Absolute) (test code 0.7 x10E3/uL 0.1-0.9 = 742-7) Eos (Absolute) (test code = 0.3 x10E3/uL 0.0-0.4 711-2) Baso (Absolute) (test code = 0.0 x10E3/uL 0.0-0.2 704-7) Immature Granulocytes (test 0 % Not Estab. code = 42849-4) Immature Grans (Abs) (test code 0.0 x10E3/uL 0.0-0.1 = 36404-6) NRBC (test code = 95921-5) Hematology Comments: (test code = 82821-5) [facility] Description: CBC With Differential/[id number] 23:19:00 Test Item Value Reference Range Interpretation Comments WBC (test code = 6690-2) 10.6 x10E3/uL 3.4-10.8 RBC (test code = 789-8) 5.02 x10E6/uL 4.14-5.80 Hemoglobin (test code = 718-7) 17.1 g/dL 13.0-17.7 Hematocrit (test code = 4544-3) 52.8 % 37.5-51.0 H MCV (test code = 787-2) 105 fL 79-97 H MCH (test code = 785-6) 34.1 pg 26.6-33.0 H MCHC (test code = 786-4) 32.4 g/dL 31.5-35.7 RDW (test code = 788-0) 13.4 % 12.3-15.4 Platelets (test code = 777-3) 280 x10E3/uL 150-450 Neutrophils (test code = 770-8) 56 % Not Estab. Lymphs (test code = 736-9) 34 % Not Estab. Monocytes (test code = 5905-5) 7 % Not Estab. Eos (test code = 713-8) 3 % Not Estab. Basos (test code = 706-2) 0 % Not Estab. Neutrophils (Absolute) (test 6.0 x10E3/uL 1.4-7.0 code = 751-8) Lymphs (Absolute) (test code = 3.6 x10E3/uL 0.7-3.1 H 731-0) Monocytes(Absolute) (test code 0.7 x10E3/uL 0.1-0.9 = 742-7) Eos (Absolute) (test code = 0.3 x10E3/uL 0.0-0.4 711-2) Baso (Absolute) (test code = 0.0 x10E3/uL 0.0-0.2 704-7) Immature Granulocytes (test 0 % Not Estab. code = 07909-5) Immature Grans (Abs) (test code 0.0 x10E3/uL 0.0-0.1 = 44813-7) NRBC (test code = 13177-5) Hematology Comments: (test code = 17949-9) [facility]
[2023-01-30 16:26] VITALS: BP 132/78; TEMP 97.9; O2SAT 99
== END 2023-01-30 16:22 | disposition home or self-care (01) ==
LOC: ER 15:15
DX: H66.92 Otitis media, unspecified, left ear (principal); H60.8X2 Other otitis externa, left ear; E11.9 Type 2 diabetes mellitus without complications